=== PATIENT | female | born 1955 | race Caucasian/White ===

== ENCOUNTER → 2016-03-17 | Outpatient (CLI) | payer BC, MEDICAID | LOC: OD 14:47 | PROVIDERS: ATTEND Physician Assistant | DX: R05 Cough (principal) | CPT/HCPCS: 71020 ==

== ENCOUNTER → 2016-03-30 | Outpatient (CLI) | payer BC, MEDICAID | LOC: RAD 12:38 | PROVIDERS: ATTEND Physician Assistant | DX: R94.6 Abnormal results of thyroid function studies (principal); R05 Cough | CPT/HCPCS: 71250; 76536 ==

== ENCOUNTER 2016-04-11 11:02 | Observation (INO) | payer BC, MEDICAID ==
--- NOTE | 2016-04-11 11:09 | ER Document Report ---
ED Medical Screen (RME) - General Stated Complaint: NUMBNESS ON RIGHT SIDE Time seen by provider: 11:06 Mode of Arrival: Wheelchair Information source: Patient TRAVEL OUTSIDE OF THE [place] IN LAST 30 DAYS: No - Related Data Allergies/Adverse Reactions: morphine [Morphine] Allergy (Verified 01/07/13 19:16) nubane Allergy (Uncoded 01/07/13 19:16) plastic tape Allergy (Uncoded 01/07/13 19:16) Past Medical History - Past Medical History Cardiac Medical History: Reports: Hx Coronary Artery Disease, Hx Hypercholesterolemia, Hx Hypertension, Hx Pulmonary Embolism Pulmonary Medical History: Reports: Hx Asthma, Hx COPD Denies: Hx Tuberculosis Endocrine Medical History: Reports: Hx Diabetes Mellitus Type 2 Psychiatric Medical History: Reports: Hx Bipolar Disorder, Hx Depression Past Surgical History: Reports: Hx Appendectomy, Hx Cardiac Catheterization - stent x 1, Hx Cholecystectomy, Hx Mastectomy - left side, pt states many years ago, Hx Thyroid Surgery - Immunizations Hx Diphtheria, Pertussis, Tetanus Vaccination: Yes
--- NOTE | 2016-04-11 11:11 | ER Document Report ---
ED Medical Screen (RME) - General Stated Complaint: NUMBNESS ON RIGHT SIDE Time seen by provider: 11:09 Mode of Arrival: Wheelchair Information source: Patient Notes: 60-year-old female complaining of right-sided numbness that started at 9:00 this morning. She also has numbness to the right side of her face with a headache on the right side. She's never experienced this before history of hypertension her blood pressure is mildly elevated in triage. Smile is normal. TRAVEL OUTSIDE OF THE [place] IN LAST 30 DAYS: No - Related Data Allergies/Adverse Reactions: morphine [Morphine] Allergy (Verified 01/07/13 19:16) nubane Allergy (Uncoded 01/07/13 19:16) plastic tape Allergy (Uncoded 01/07/13 19:16) Past Medical History - Past Medical History Cardiac Medical History: Reports: Hx Coronary Artery Disease, Hx Hypercholesterolemia, Hx Hypertension, Hx Pulmonary Embolism Pulmonary Medical History: Reports: Hx Asthma, Hx COPD Denies: Hx Tuberculosis Endocrine Medical History: Reports: Hx Diabetes Mellitus Type 2 Psychiatric Medical History: Reports: Hx Bipolar Disorder, Hx Depression Past Surgical History: Reports: Hx Appendectomy, Hx Cardiac Catheterization - stent x 1, Hx Cholecystectomy, Hx Mastectomy - left side, pt states many years ago, Hx Thyroid Surgery - Immunizations Hx Diphtheria, Pertussis, Tetanus Vaccination: Yes
[2016-04-11 11:39] LABS: ABSOLUTE BASOPHILS # (AUTO) 0.1 10^3/uL (0.0-0.2); ABSOLUTE EOSINOPHILS # (AUTO) 0.1 10^3/uL (0.0-0.6); ABSOLUTE LYMPHOCYTES (AUTO) 2.4 10^3/uL (0.5-4.7); ABSOLUTE MONOCYTES (AUTO) 0.5 10^3/uL (0.1-1.4); ABSOLUTE NEUT (AUTO) 5.3 10^3/uL (1.7-8.2); BASOPHILS % (AUTO) 1.4 % (0-2); EOSINOPHILS % (AUTO) 1.2 % (0-6); HEMATOCRIT 46.6 % (36.0-47.0); HEMOGLOBIN 16.3 g/dL (12.0-15.5); HGB HCT DIFFERENCE 2.3; LYMPHOCYTES % (AUTO) 28.1 % (13-45); MEAN CORPUSCULAR HEMOGLOBIN 30.5 pg (27.0-33.4); MEAN CORPUSCULAR HGB CONC 35.1 g/dL (32.0-36.0); MEAN CORPUSCULAR VOLUME 87 fl (80-97); MONOCYTES % (AUTO) 6.4 % (3-13); RED BLOOD COUNT 5.36 10^6/uL (3.72-5.28); RED CELL DISTRIBUTION WIDTH 13.7 % (11.5-14.0); SEGMENTED NEUTROPHILS % (AUTO) 62.9 % (42-78); WHITE BLOOD COUNT 8.5 10^3/uL (4.0-10.5)
--- NOTE | 2016-04-11 11:40 | ER Document Report ---
ED Neuro Symptoms/Deficit - General Chief Complaint: Numbness Stated Complaint: NUMBNESS ON RIGHT SIDE Mode of Arrival: Wheelchair Notes: The patient is a 60-year-old female, past medical history diabetes, CAD, bipolar , current smoker, hypertension, presents with 2.5 hours of right-sided facial, arm and leg numbness. She was smoking a cigarette and drinking coffee when the symptoms started at 09:00 today. The symptoms are remaining the same and she has never had this before. She had a dull headache yesterday, similar to prior headaches that resolved without intervention. She denies TRAVEL OUTSIDE OF THE [place] IN LAST 30 DAYS: No - Related Data Allergies/Adverse Reactions: morphine [Morphine] Allergy (Verified 01/07/13 19:16) nubane Allergy (Uncoded 01/07/13 19:16) plastic tape Allergy (Uncoded 01/07/13 19:16) Past Medical History - General Information source: Patient - Social History Smoking Status: Current Every Day Smoker Family History: Reviewed & Not Pertinent - Past Medical History Cardiac Medical History: Reports: Hx Coronary Artery Disease, Hx Hypercholesterolemia, Hx Hypertension, Hx Pulmonary Embolism Pulmonary Medical History: Reports: Hx Asthma, Hx COPD Denies: Hx Tuberculosis Endocrine Medical History: Reports: Hx Diabetes Mellitus Type 2 Renal/ Medical History: Denies: Hx Peritoneal Dialysis Psychiatric Medical History: Reports: Hx Bipolar Disorder, Hx Depression Past Surgical History: Reports: Hx Appendectomy, Hx Cardiac Catheterization - stent x 1, Hx Cholecystectomy, Hx Mastectomy - left side, pt states many years ago, Hx Thyroid Surgery - Immunizations Hx Diphtheria, Pertussis, Tetanus Vaccination: Yes Hx Pneumococcal Vaccination: 10/30/08 Review of Systems - Review of Systems Notes: REVIEW OF SYSTEMS: CONSTITUTIONAL: -fevers, -chills EENT: -eye pain, -difficulty swallowing, -nasal congestion CARDIOVASCULAR:-chest pain, -syncope. RESPIRATORY: -cough, -SOB GASTROINTESTINAL: -abdominal pain, - nausea, -vomiting, -diarrhea GENITOURINARY: -dysuria, -hematuria MUSCULOSKELETAL: -back pain, -neck pain SKIN: -rash or skin lesions. HEMATOLOGIC: -easy bruising or bleeding. LYMPHATIC: -swollen, enlarged glands. NEUROLOGICAL: -altered mental status or loss of consciousness, +right-sided body numbness, -ataxia, -weakness PSYCHIATRIC: -anxiety, -depression. ALL OTHER SYSTEMS REVIEWED AND NEGATIVE. Physical Exam - Vital signs Vitals: Temp Pulse Resp BP Pulse Ox 97.2 F 84 16 151/91 H 94 04/11/16 11:06 04/11/16 11:06 04/11/16 11:06 04/11/16 11:06 04/11/16 11:06 - Notes Notes: PHYSICAL EXAMINATION: GENERAL: Well-appearing, well-nourished and in no acute distress. HEAD: Atraumatic, normocephalic. EYES: Pupils equal round and reactive to light, extraocular movements intact, sclera anicteric, conjunctiva are normal. ENT: nares patent, oropharynx clear without exudates. Moist mucous membranes. NECK: Normal range of motion, supple without lymphadenopathy LUNGS: Breath sounds clear to auscultation bilaterally and equal. No wheezes rales or rhonchi. HEART: Regular rate and rhythm without murmurs ABDOMEN: Soft, nontender, normoactive bowel sounds. No guarding, no rebound. No masses appreciated. EXTREMITIES: Normal range of motion, no pitting or edema. No cyanosis. NEUROLOGICAL: Cranial nerves grossly intact. Normal speech, normal gait. Sensory loss over right face, right arm, right torso and right leg. 5/5 strength in all 4 extremities. PSYCH: Normal mood, normal affect. SKIN: Warm, Dry, normal turgor, no rashes or lesions noted. Course - Re-evaluation Re-evalutation: CT head negative for intracranial hemorrhage. NIHSS score 2. Patient is not a TPA candidate due to low NIH scale. Spoke to patient about this and she understands. ABCD2 score 5. Patient will require inpatient admission for further evaluation and treatment of her CVA due to her elevated ABCD2 score. Patient given aspirin. 04/11/16 12:[address] Mccabe and he has accepted patient as Tele Obs. - Vital Signs Vital signs: Temp Pulse Resp BP Pulse Ox 97.2 F 80 26 H 154/92 H 94 04/11/16 11:06 04/11/16 12:00 04/11/16 12:21 04/11/16 12:21 04/11/16 12:21 - Laboratory Result Diagrams: 04/11/16 11:28 04/11/16 11:28 Laboratory results interpreted by me: 04/11/16 04/11/16 11:28 11:28 RBC 5.36 H Hgb 16.3 H Sodium 134.2 L Est GFR ( Amer) 56 L Est GFR (Non-Af Amer) 46 L Glucose 175 H Alkaline Phosphatase 132 H - Diagnostic Test Radiology reviewed: Image reviewed, Reports reviewed Radiology results interpreted by me: CT Head: NAD. CXR: NAD - EKG Interpretation by Me EKG shows normal: Sinus rhythm, [place], Intervals, QRS Complexes, ST-T Waves Critical Care Note - Critical Care Note Total time excluding time spent on procedures (mins): 45 Discharge - Discharge Clinical Impression: CVA (cerebral vascular accident) Qualifiers: CVA mechanism: unspecified Qualified Code(s): I63.9 - Cerebral infarction, unspecified Condition: Stable Disposition: ADMITTED OBSERVATION Admitting Provider: [facility] Admitted: Telemetry
[2016-04-11 11:45] LABS: PROTHROMBIN TIME 11.6 SEC (11.4-15.4)
[2016-04-11 11:46] LABS: PARTIAL THROMBOPLASTIN TIME 31.7 SEC (23.5-35.8)
[2016-04-11 11:57] LABS: ALANINE AMINOTRANSFERASE 29 U/L (9-52); ALBUMIN 3.9 g/dL (3.5-5.0); ALKALINE PHOSPHATASE 132 U/L (38-126); ANION GAP 7 (5-19); ASPARTATE AMINO TRANSFERASE 26 U/L (14-36); BILIRUBIN,TOTAL 0.5 mg/dL (0.2-1.3); BLOOD UREA NITROGEN 16 mg/dL (7-20); CALCIUM 9.6 mg/dL (8.4-10.2); CARBON DIOXIDE 28 mmol/L (22-30); CHLORIDE 99 mmol/L (98-107); CREATINE KINASE 46 U/L (30-135); CREATININE RESULT 1.19 mg/dL (0.52-1.25); GLUCOSE 175 mg/dL (75-110); POTASSIUM 4.2 mmol/L (3.6-5.0); SODIUM 134.2 mmol/L (137-145); TOTAL PROTEIN 6.7 g/dL (6.3-8.2)
[2016-04-11] MEDS ORDERED: ASPIRIN 325 MG TABLET PO ONE (12:00)
[2016-04-11 12:09] LABS: CREATINE KINASE MB 1.13 ng/mL (<4.55); TROPONIN I < 0.012 ng/mL
[2016-04-11] MEDS ORDERED: DEXTROSE 40% GEL 15 GM TUBE PO PRN ×2 (16:26)
[2016-04-11] MEDS ORDERED: NORMAL SALINE 1000 ML 1,000 ML IV PRN (16:26)
[2016-04-11] MEDS ORDERED: DEXTROSE 50%-WATER 25 GM/50 ML DISP.SYRIN IV PRN ×2 (16:26)
[2016-04-11] MEDS ORDERED: GLUCAGON,HUMAN RECOMB 1 MG INJ IM PRN (16:26)
[2016-04-11] MEDS ORDERED: INSULIN LISPRO 100 UNIT/ML 3 ML VIAL SUBCUT PRN (16:26)
--- NOTE | 2016-04-11 16:38 | PDOC H&P ---
History of Present Illness Admission Date/PCP: 04/11/16 13:11 MARU WOODALL MD Patient complains of: Right sided numbness History of Present Illness: CRISTIANE LOVE is a 60 year old female patient of Dr Maru Woodall who presented to ED after about 3 hours of right sided facial and body numbness. Patient narrated that she had a cup of coffee and smoked cigarette. She subsequently felt some degree of right sided facial numbness but went on to sleep. Upon waking up, patient reported worsening of symptom with involvement of full right side of her bopdy. This prompted her visit to her ED visit. Patient reported episode of nose bleed couple of days ago. Associated headache but no dizziness, seizure activity, focal weakness, or incontinence. She denied any similar symptoms in the past. Her initail evaluation ion the E was remarkable for slightly elevated blood pressure and blood glucose. She has history of Diabetes mellitus, Hypertension, CAD, Hyperlipidemia, Bipolar disorder, and cigarette smoking. Past Medical History Cardiac Medical History: Reports: Coronary Artery Disease, Hyperlipidema, Hypertension, Pulmonary Embolism Pulmonary Medical History: Reports: Asthma, Chronic Obstructive Pulmonary Disease (COPD) Denies: Tuberculosis Endocrine Medical History: Reports: Diabetes Mellitus Type 2 Psychiatric Medical History: Reports: Bipolar Disorder, Depression Past Surgical History Past Surgical History: Reports: Appendectomy, Cardiac Catheterization - stent x 1, Cholecystectomy, Mastectomy - left side, pt states many years ago Social History Smoking Status: Current Every Day Smoker Cigarettes Packs Per Day: 60 Number of Years Smokin Last Time Smoked: 04/11/16 Frequency of Alcohol Use: None Hx Recreational Drug Use: Yes - LAST USE 04/11/16 Drugs: Marijuana Hx Prescription Drug Abuse: No - Advance Directive Resuscitation Status: Full Code Family History Family History: Reviewed & Not Pertinent Parental Family History Reviewed: Yes Children Family History Reviewed: Yes Sibling(s) Family History Reviewed.: Yes Medication/Allergy Home Medications: Aripiprazole [Abilify 30 mg Tablet] 30 mg PO QAM 04/11/16 Fenofibrate [Lofibra] 160 mg PO DAILY 04/11/16 Hydroxyzine HCl [Atarax 25 mg Tablet] 25 mg PO DAILYP PRN 04/11/16 Hydroxyzine HCl [Atarax 25 mg Tablet] 50 mg PO QHS 04/11/16 Ipratropium/Albuterol Sulfate [Iprat-Albut 0.5-3(2.5) mg/3 ml] 3 ml NEB Q6H 01/15 Metoprolol Tartrate [Lopressor 25 mg Tablet] 25 mg PO Q12 04/11/16 Montelukast Sodium [Singulair 10 mg Tablet] 10 mg PO QPM 04/11/16 Omeprazole 40 mg PO DAILY 04/11/16 Potassium Chloride [Klor-Con 10 Meq Tablet.sa] 20 meq PO DAILY 04/11/16 Quetiapine Fumarate [Seroquel 100 mg Tablet] 100 mg PO QHS 04/11/16 Trazodone HCl [Desyrel] 450 mg PO QHS 04/11/16 Venlafaxine HCl [Venlafaxine HCl ER] 150 mg PO BID 04/11/16 Allergies/Adverse Reactions: morphine [Morphine] Allergy (Verified 01/07/13 19:16) nubane Allergy (Uncoded 01/07/13 19:16) plastic tape Allergy (Uncoded 01/07/13 19:16) Review of Systems Constitutional: ABSENT: as per HPI, anorexia, chills, fatigue, fever(s), headache(s), night sweats, weakness, weight gain, weight loss, other Eyes: ABSENT: visual disturbances Ears: ABSENT: hearing changes Nose, Mouth, and Throat: ABSENT: as per HPI, headache(s), mouth pain, sore throat, vertigo, other Cardiovascular: ABSENT: chest pain, dyspnea on exertion, edema, orthropnea, palpitations Respiratory: ABSENT: cough, hemoptysis Gastrointestinal: ABSENT: abdominal pain, constipation, diarrhea, hematemesis, hematochezia, nausea, vomiting Genitourinary: ABSENT: as per HPI, difficulty urinating, dysuria, hematuria, nocturia, other Musculoskeletal: PRESENT: deformity - from multiple joints involvemenet in osteuol. ABSENT: as per HPI, back pain, joint swelling, muscle weakness, other Integumentary: PRESENT: diaphoresis - intermittently. ABSENT: as per HPI, erythema, lesions, pruritus, rash, wounds, other Neurological: PRESENT: numbness, other - headache Psychiatric: ABSENT: anxiety, depression, homidical ideation, suicidal ideation Endocrine: ABSENT: cold intolerance, heat intolerance, menstrual abnormalities, polydipsia, polyuria Hematologic/Lymphatic: ABSENT: easy bleeding, easy bruising, lymphadenopathy Physical Exam Vital Signs: Temp Pulse Resp BP Pulse Ox 97.5 F 80 20 151/78 H 96 04/11/16 15:39 04/11/16 15:39 04/11/16 15:39 04/11/16 15:39 04/11/16 15:39 General appearance: PRESENT: no acute distress, cooperative, obese Head exam: PRESENT: atraumatic, normocephalic Eye exam: PRESENT: conjunctiva pink, EOMI, PERRLA. ABSENT: scleral icterus Ear exam: PRESENT: normal external ear exam Mouth exam: PRESENT: moist, tongue midline Throat exam: ABSENT: post pharyngeal erythema, tonsillar erythema, tonsillar exudate, tonsillogmegaly, other Neck exam: PRESENT: full ROM. ABSENT: carotid bruit, JVD, lymphadenopathy, thyromegaly Respiratory exam: ABSENT: accessory muscle use, chest wall tenderness, clear to auscultation nuvia, crackles, decreased breath sounds, prolonged expiratory phas, rales, retraction, rhonchi, stridor, symmetrical, tachypnea, unlabored, wheezes , other Cardiovascular exam: PRESENT: RRR. ABSENT: diastolic murmur, rubs, systolic murmur Pulses: PRESENT: normal dorsalis pedis pul, +2 pedal pulses bilateral Vascular exam: PRESENT: normal capillary refill GI/Abdominal exam: PRESENT: normal bowel sounds, soft. ABSENT: distended, guarding, mass, organolmegaly, rebound, tenderness Extremities exam: PRESENT: full ROM Musculoskeletal exam: PRESENT: ambulatory, deformity, full ROM, normal inspection Neurological exam: PRESENT: alert, awake, oriented to person, oriented to place , oriented to time, oriented to situation, CN II-XII grossly intact. ABSENT: motor sensory deficit Psychiatric exam: PRESENT: appropriate affect, normal mood. ABSENT: homicidal ideation, suicidal ideation Skin exam: PRESENT: dry, intact, warm. ABSENT: cyanosis, rash Results Impressions: Chest X-Ray 04/11/16 11:10 IMPRESSION: No significant interval change. No acute changes. Other findings as noted above Head CT 04/11/16 11:10 IMPRESSION: NORMAL BRAIN CT WITHOUT CONTRAST. Assessment & Plan - Diagnosis (1) TIA (transient ischemic attack) Qualifiers: Transient cerebral ischemia type: unspecified Qualified Code(s): G45.9 - Transient cerebral ischemic attack, unspecified Is this a current diagnosis for this admission?: YesPlan: See admitting physician orders (2) HTN (hypertension) Qualifiers: Hypertension type: essential hypertension Qualified Code(s): I10 - Essential (primary) hypertension Is this a current diagnosis for this admission?: YesPlan: See admitting physician orders (3) HLD (hyperlipidemia) Qualifiers: Hyperlipidemia type: pure hypercholesterolemia Qualified Code(s): E78.00 - Pure hypercholesterolemia, unspecified; E78.0 - Pure hypercholesterolemia Is this a current diagnosis for this admission?: YesPlan: See admitting physician orders (4) CAD (coronary artery disease) Qualifiers: Coronary Disease-Associated Artery/Lesion type: [place] artery Associated angina: without angina Is this a current diagnosis for this admission?: YesPlan: See admitting physician orders (5) Diabetes mellitus type 2 in obese Is this a current diagnosis for this admission?: YesPlan: See admitting physician orders (6) Bipolar disorder Qualifiers: Active/Remission status: currently active Is this a current diagnosis for this admission?: YesPlan: See admitting physician orders (7) Cigarette smoker Is this a current diagnosis for this admission?: YesPlan: see admitting physician orders. Extensive bedside counseling was done during my evaluation of the patient at bedside regarding her comorbidities and worsening outcome due to cigarette smoking. - Time Time Spent: 50 to 70 Minutes Smoking Cessation Education: 3 to 10 minutes Medications reviewed and adjusted accordingly: Yes Anticipated discharge: Home with Homehealth Within: Other - Plan Summary Plan Summary: See admitting physician orders.
[2016-04-11 17:51] LABS: PROTHROMBIN TIME 12.3 SEC (11.4-15.4)
[2016-04-11 17:52] LABS: PARTIAL THROMBOPLASTIN TIME 31.9 SEC (23.5-35.8)
--- NOTE | 2016-04-11 19:29 | EKG REPORT ---
SEVERITY:- NORMAL ECG - SINUS RHYTHM : Confirmed by: Farhad Raza MD 11-Apr-2016 19:28:56
[2016-04-11] MEDS: IPRATROPIUM/ALBUTEROL 0.5-2.5 MG/3 ML AMPUL NEB SCH (20:27)
[2016-04-11] MEDS: TRAZODONE HCL 50 MG TABLET PO SCH (21:53)
[2016-04-11] MEDS: MONTELUKAST SODIUM 10 MG TABLET PO SCH (22:03)
[2016-04-11] MEDS: ATORVASTATIN CALCIUM 20 MG TABLET PO SCH (22:04)
[2016-04-11] MEDS: METOPROLOL TARTRATE 25 MG TABLET PO SCH (22:04)
[2016-04-11] MEDS: QUETIAPINE FUMARATE 100 MG TABLET PO SCH (22:04)
[2016-04-11] MEDS: VENLAFAXINE HCL 75 MG CAP.SR.24H PO SCH (22:05)
[2016-04-12] MEDS ORDERED: ACETAMINOPHEN 325 MG TABLET PO PRN (00:11)
[2016-04-12] MEDS: IPRATROPIUM/ALBUTEROL 0.5-2.5 MG/3 ML AMPUL NEB SCH ×4 (02:38→20:26)
[2016-04-12 04:30] LABS: ABSOLUTE BASOPHILS # (AUTO) 0.1 10^3/uL (0.0-0.2); ABSOLUTE EOSINOPHILS # (AUTO) 0.1 10^3/uL (0.0-0.6); ABSOLUTE MONOCYTES (AUTO) 0.5 10^3/uL (0.1-1.4); ABSOLUTE NEUT (AUTO) 5.1 10^3/uL (1.7-8.2); EOSINOPHILS % (AUTO) 1.7 % (0-6); HEMATOCRIT 45.3 % (36.0-47.0); HGB HCT DIFFERENCE -0.3; LYMPHOCYTES % (AUTO) 25.5 % (13-45); MEAN CORPUSCULAR HEMOGLOBIN 29.4 pg (27.0-33.4); MEAN CORPUSCULAR HGB CONC 33.2 g/dL (32.0-36.0); MEAN CORPUSCULAR VOLUME 89 fl (80-97); MONOCYTES % (AUTO) 6.8 % (3-13); RED BLOOD COUNT 5.12 10^6/uL (3.72-5.28); WHITE BLOOD COUNT 7.9 10^3/uL (4.0-10.5)
[2016-04-12 04:50] LABS: ALANINE AMINOTRANSFERASE 31 U/L (9-52); ALBUMIN 2.9 g/dL (3.5-5.0); ALKALINE PHOSPHATASE 108 U/L (38-126); ANION GAP 7 (5-19); ASPARTATE AMINO TRANSFERASE 25 U/L (14-36); BILIRUBIN,TOTAL 0.4 mg/dL (0.2-1.3); BLOOD UREA NITROGEN 16 mg/dL (7-20); CALCIUM 9.2 mg/dL (8.4-10.2); CARBON DIOXIDE 25 mmol/L (22-30); CHLORIDE 105 mmol/L (98-107); CHOLESTEROL 261.98 mg/dL (0-200); CREATININE RESULT 1.17 mg/dL (0.52-1.25); Direct HDL 69 mg/dL (>40); GLUCOSE 129 mg/dL (75-110); POTASSIUM 3.9 mmol/L (3.6-5.0); SODIUM 136.8 mmol/L (137-145); TOTAL PROTEIN 5.9 g/dL (6.3-8.2); TRIGLYCERIDES 217 mg/dL (<150)
[2016-04-12 05:00] LABS: DIRECT LDL 131 mg/dL (<100)
[2016-04-12] MEDS: LANSOPRAZOLE 30 MG TAB.RAP.DR PO SCH (05:05)
[2016-04-12 05:09] LABS: VLDL CHOLESTEROL 43.4 mg/dL (10-31)
[2016-04-12] MEDS: ENOXAPARIN SODIUM INJ 40 MG/0.4 ML DISP.SYRIN SUBCUT SCH (08:39)
[2016-04-12] MEDS: ARIPIPRAZOLE 5 MG TABLET PO SCH (09:33)
[2016-04-12] MEDS: FENOFIBRATE NANOCRYSTALLIZED 145 MG TABLET PO SCH (09:34)
[2016-04-12] MEDS: ASPIRIN 81 MG TABLET, ENT COATED PO SCH (09:34)
[2016-04-12] MEDS: VENLAFAXINE HCL 75 MG CAP.SR.24H PO SCH ×2 (09:34→21:31)
[2016-04-12] MEDS: METOPROLOL TARTRATE 25 MG TABLET PO SCH ×2 (09:34→21:31)
--- NOTE | 2016-04-12 15:49 | PDOC PROGRESS REPORT ---
Subjective Progress Note for:: 04/12/16 Subjective:: Patient denied any chest pain or difficulty with her breathing. Ambulate in her room and denied any difficulty. In view of this she denied participation with PT personnel today. No nausea, vomiting or abdominal pain. No fever or chills. Physical Exam Vital Signs: Temp Pulse Resp BP Pulse Ox 97.9 F 81 14 160/82 H 96 04/12/16 11:27 04/12/16 13:58 04/12/16 13:58 04/12/16 12:00 04/12/16 13:58 Intake & Output 04/11/16 04/12/16 04/13/16 06:59 06:59 06:59 Intake Total 1950 537 Balance 1950 537 Weight 72.1 kg General appearance: PRESENT: no acute distress, cooperative Head exam: PRESENT: atraumatic, normocephalic Eye exam: PRESENT: conjunctiva pink, EOMI, PERRLA Neck exam: PRESENT: full ROM. ABSENT: carotid bruit, JVD, lymphadenopathy, thyromegaly Respiratory exam: ABSENT: accessory muscle use, chest wall tenderness, clear to auscultation nuvia, crackles, decreased breath sounds, prolonged expiratory phas, rales, retraction, rhonchi, stridor, symmetrical, tachypnea, unlabored, wheezes , other Cardiovascular exam: PRESENT: RRR. ABSENT: diastolic murmur, rubs, systolic murmur GI/Abdominal exam: PRESENT: normal bowel sounds, soft. ABSENT: distended, guarding, mass, organolmegaly, rebound, tenderness Extremities exam: PRESENT: full ROM Musculoskeletal exam: PRESENT: deformity, full ROM Neurological exam: PRESENT: alert, awake, oriented to person, oriented to place , oriented to time, oriented to situation, CN II-XII grossly intact. ABSENT: motor sensory deficit Psychiatric exam: PRESENT: appropriate affect, normal mood. ABSENT: homicidal ideation, suicidal ideation Skin exam: PRESENT: dry, intact, warm. ABSENT: cyanosis, rash Results Laboratory Results: 04/12/16 04:03 04/12/16 04:03 04/12/16 04/12/16 04:03 04:03 WBC 7.9 RBC 5.12 Hgb 15.0 Hct 45.3 MCV 89 MCH 29.4 MCHC 33.2 RDW 14.0 Plt Count 321 Seg Neutrophils % 65.0 Lymphocytes % 25.5 Monocytes % 6.8 Eosinophils % 1.7 Basophils % 1.0 Absolute Neutrophils 5.1 Absolute Lymphocytes 2.0 Absolute Monocytes 0.5 Absolute Eosinophils 0.1 Absolute Basophils 0.1 Sodium 136.8 L Potassium 3.9 Chloride 105 Carbon Dioxide 25 Anion Gap 7 BUN 16 Creatinine 1.17 Est GFR ( Amer) 57 L Est GFR (Non-Af Amer) 47 L Glucose 129 H Calcium 9.2 Total Bilirubin 0.4 AST 25 ALT 31 Alkaline Phosphatase 108 Total Protein 5.9 L Albumin 2.9 L Triglycerides 217 H Cholesterol 261.98 H LDL Cholesterol Direct 131 H VLDL Cholesterol 43.4 H HDL Cholesterol 69 Impressions: Chest X-Ray 04/11/16 11:10 IMPRESSION: No significant interval change. No acute changes. Other findings as noted above Head CT 04/11/16 11:10 IMPRESSION: NORMAL BRAIN CT WITHOUT CONTRAST. Assessment & Plan - Diagnosis (1) TIA (transient ischemic attack) Qualifiers: Transient cerebral ischemia type: unspecified Qualified Code(s): G45.9 - Transient cerebral ischemic attack, unspecified Is this a current diagnosis for this admission?: YesPlan: See attending physician orders (2) HTN (hypertension) Qualifiers: Hypertension type: essential hypertension Qualified Code(s): I10 - Essential (primary) hypertension Is this a current diagnosis for this admission?: YesPlan: See attending physician orders (3) HLD (hyperlipidemia) Qualifiers: Hyperlipidemia type: pure hypercholesterolemia Qualified Code(s): E78.00 - Pure hypercholesterolemia, unspecified; E78.0 - Pure hypercholesterolemia Is this a current diagnosis for this admission?: YesPlan: See attending physician orders. (4) CAD (coronary artery disease) Qualifiers: Coronary Disease-Associated Artery/Lesion type: [place] artery Associated angina: without angina Is this a current diagnosis for this admission?: YesPlan: See attending physician orders (5) Diabetes mellitus type 2 in obese Is this a current diagnosis for this admission?: YesPlan: See attending physician orders (6) Bipolar disorder Qualifiers: Active/Remission status: currently active Is this a current diagnosis for this admission?: Yes (7) Cigarette smoker Is this a current diagnosis for this admission?: Yes - Time Time Spent with patient: 25-34 minutes Medications reviewed and adjusted accordingly: Yes Anticipated discharge: Home - Inpatient Certification Medical Necessity: Need Close Monitoring Due to Risk of Patient Decompensation, Need For Continuous Telemetry Monitoring, Risk of Complication if Not Cared For in Hospital Post Hospital Care: D/C Demolition Specialist Documentation - Plan Summary Plan Summary: see covering physician orders.
[2016-04-12] MEDS: MONTELUKAST SODIUM 10 MG TABLET PO SCH (19:33)
[2016-04-12] MEDS: ATORVASTATIN CALCIUM 20 MG TABLET PO SCH (21:31)
[2016-04-12] MEDS: QUETIAPINE FUMARATE 100 MG TABLET PO SCH (21:31)
[2016-04-12] MEDS: TRAZODONE HCL 50 MG TABLET PO SCH (21:33)
[2016-04-13] MEDS: IPRATROPIUM/ALBUTEROL 0.5-2.5 MG/3 ML AMPUL NEB SCH ×4 (02:07→20:31)
[2016-04-13] MEDS: LANSOPRAZOLE 30 MG TAB.RAP.DR PO SCH (05:33)
[2016-04-13] MEDS: ARIPIPRAZOLE 5 MG TABLET PO SCH (09:14)
[2016-04-13] MEDS: METOPROLOL TARTRATE 25 MG TABLET PO SCH ×2 (09:14→21:07)
[2016-04-13] MEDS: VENLAFAXINE HCL 75 MG CAP.SR.24H PO SCH ×2 (09:14→21:06)
[2016-04-13] MEDS: ASPIRIN 81 MG TABLET, ENT COATED PO SCH (09:15)
[2016-04-13] MEDS: THYROID (PORK) 60 MG TABLET PO SCH (09:16)
[2016-04-13] MEDS: LIOTHYRONINE SODIUM 25 MCG TABLET PO SCH (09:16)
[2016-04-13] MEDS: FENOFIBRATE NANOCRYSTALLIZED 145 MG TABLET PO SCH (09:16)
[2016-04-13] MEDS: ENOXAPARIN SODIUM INJ 40 MG/0.4 ML DISP.SYRIN SUBCUT SCH (09:16)
--- NOTE | 2016-04-13 10:24 | PDOC PROGRESS REPORT ---
Subjective Progress Note for:: 04/13/16 Subjective:: Patient was admitted for the TIA symptom and initial all workup is negative. His denied any chest no shortness of the and no any tingling any numbness. Patient's walk in the hallway. Otherwise doing well and wants to go home Physical Exam Vital Signs: Temp Pulse Resp BP Pulse Ox 97.6 F 85 20 169/80 H 95 04/13/16 07:53 04/13/16 08:47 04/13/16 08:47 04/13/16 07:53 04/13/16 08:47 Intake & Output 04/12/16 04/13/16 04/14/16 06:59 06:59 06:59 Intake Total 1950 3057 Output Total 3400 Balance 1950 -343 Weight 72.1 kg 73.1 kg General appearance: PRESENT: no acute distress, well-developed, well-nourished Head exam: PRESENT: atraumatic, normocephalic Eye exam: PRESENT: conjunctiva pink, EOMI, PERRLA. ABSENT: scleral icterus Ear exam: PRESENT: normal external ear exam Mouth exam: PRESENT: moist, tongue midline Neck exam: PRESENT: full ROM. ABSENT: carotid bruit, JVD, lymphadenopathy, thyromegaly Cardiovascular exam: PRESENT: RRR. ABSENT: diastolic murmur, rubs, systolic murmur Pulses: PRESENT: normal dorsalis pedis pul, +2 pedal pulses bilateral Vascular exam: PRESENT: normal capillary refill GI/Abdominal exam: PRESENT: normal bowel sounds, soft. ABSENT: distended, guarding, mass, organolmegaly, rebound, tenderness Rectal exam: PRESENT: deferred Neurological exam: PRESENT: alert, awake, oriented to person, oriented to place , oriented to time, oriented to situation, CN II-XII grossly intact. ABSENT: motor sensory deficit Psychiatric exam: PRESENT: appropriate affect, normal mood. ABSENT: homicidal ideation, suicidal ideation Skin exam: PRESENT: dry, intact, warm. ABSENT: cyanosis, rash Results Laboratory Results: 04/12/16 04:03 04/12/16 04:03 Impressions: Chest X-Ray 04/11/16 11:10 IMPRESSION: No significant interval change. No acute changes. Other findings as noted above Head CT 04/11/16 11:10 IMPRESSION: NORMAL BRAIN CT WITHOUT CONTRAST. Carotid Doppler Study 04/13/16 00:00 IMPRESSION: NO HEMODYNAMICALLY SIGNIFICANT STENOSIS. Assessment & Plan - Diagnosis (1) TIA (transient ischemic attack) Qualifiers: Transient cerebral ischemia type: unspecified Qualified Code(s): G45.9 - Transient cerebral ischemic attack, unspecified Is this a current diagnosis for this admission?: YesPlan: Continues the aspirin continues the current we will get the MRI of the head and will wait for the carotid Doppler and echo study (2) Bipolar disorder Qualifiers: Active/Remission status: currently active Is this a current diagnosis for this admission?: YesPlan: Patient is currently follow the psych for the (3) CAD (coronary artery disease) Qualifiers: Coronary Disease-Associated Artery/Lesion type: [place] artery Associated angina: without angina Is this a current diagnosis for this admission?: YesPlan: All workup is negative patient was recently a stress test and echo done and patient see Dr. Gonzalez's office (4) Cigarette smoker Is this a current diagnosis for this admission?: YesPlan: Discuss about the smoking cessation (5) HLD (hyperlipidemia) Qualifiers: Hyperlipidemia type: pure hypercholesterolemia Qualified Code(s): E78.00 - Pure hypercholesterolemia, unspecified; E78.0 - Pure hypercholesterolemia Is this a current diagnosis for this admission?: YesPlan: Continues the current medications (6) HTN (hypertension) Qualifiers: Hypertension type: essential hypertension Qualified Code(s): I10 - Essential (primary) hypertension Is this a current diagnosis for this admission?: Yes - Time Time Spent with patient: 15-24 minutes Medications reviewed and adjusted accordingly: Yes Anticipated discharge: Home Within: within 24 hours - Inpatient Certification Medical Necessity: Significant Comorbidiites Make Outpatient Treatment Too Risky - Plan Summary Plan Summary: If the patient MRI and other blood work is neck patient's discharge home with aggressive risk management
[2016-04-13] MEDS ORDERED: ATORVASTATIN CALCIUM 40 MG TABLET PO SCH (13:33)
--- NOTE | 2016-04-13 13:55 | XCELERA REPORT ---
[address] [address] Transthoracic Echocardiogram Report Name: CRISTIANE LOVE Age: 60 yrs Gender: Female : 1955 Patient Status: Inpatient Patient Location: [id number]\S\318\[id number]\B Study Date: 04/13/2016 08:16 AM Height: 64 in Weight: 160 lb BSA: 1.8 m2 Procedure: A complete two-dimensional transthoracic echocardiogram was performed (2D, M-mode, spectral and color flow Doppler). The study was technically difficult with many images being suboptimal in quality. Reason For Study: right sided body numbness with TIA Ordering Physician: LILA SABILLON Performed By: Hansa Veronica Interpretation Summary The study was technically difficult with many images being suboptimal in quality. The left ventricular ejection fraction is normal. There is borderline concentric left ventricular hypertrophy. The left ventricle is grossly normal size. Doppler measurements suggest pseudonormalized left ventricular relaxation, which is associated with grade II/IV or mild to moderate diastolic dysfunction Wall motion cannot be accurately commented on, but no definite regional wall motion abnormalities noted. The right ventricle appears to be hypertrophied The right ventricular systolic function is normal. There is no mitral valve stenosis. There is a trace to mild amount of mitral regurgitation There is no aortic valve stenosis No aortic regurgitation is present. There is a trace or physiologic amount of tricuspid regurgitation Tricuspid regurgitation jet envelope not well defined to measure RV systolic pressure accurately. Minimal pericardial effusion. MMode/2D Measurements \T\ Calculations RVDd: 2.9 cm LVIDd: 4.6 cm FS: 27.4 % Ao root diam: 3.2 cm IVSd: 0.94 cm LVIDs: 3.3 cm EDV(Teich): 97.3 ml LVPWd: 0.90 cmESV(Teich): 45.4 ml Ao root area: 8.0 cm2 EF(Teich): 53.4 % LA dimension: 3.5 cm LVOT diam: 2.0 cm LVOT area: 3.2 cm2 Doppler Measurements \T\ Calculations MV E max carla: MV P1/2t max carla: Ao V2 max: LV V1 max P.8 cm/sec 90.3 cm/sec 124.9 cm/sec 4.3 mmHg MV A max carla: MV P1/2t: 43.4 msec Ao max PG: LV V1 max: 110.6 cm/sec MVA(P1/2t): 5.1 cm2 6.2 mmHg 104.1 cm/sec MV E/A: 0.82 MV dec slope: MITZI(V,D): 2.7 cm2 609.9 cm/sec2 MV dec time: 0.14 sec PA V2 max: TR max carla: 85.4 cm/sec 209.6 cm/sec PA max P.9 mmHgTR max P.6 mmHg Left Ventricle The left ventricle is grossly normal size. There is borderline concentric left ventricular hypertrophy. The left ventricular ejection fraction is normal. Doppler measurements suggest pseudonormalized left ventricular relaxation, which is associated with grade II/IV or mild to moderate diastolic dysfunction. Wall motion cannot be accurately commented on, but no definite regional wall motion abnormalities noted. Right Ventricle The right ventricle is grossly normal size. The right ventricle appears to be hypertrophied. The right ventricular systolic function is normal. Atria The right atrium is normal in size. The left atrial size is normal. Interarterial septum not well visualized and not well dopplered. Cannot comment on ASD/PFO presence. Mitral Valve The mitral valve is grossly normal. There is no mitral valve stenosis. There is a trace to mild amount of mitral regurgitation. Aortic Valve The aortic valve is grossly normal. There is no aortic valve stenosis. No aortic regurgitation is present. Tricuspid Valve The tricuspid valve is not well visualized, but is grossly normal. There is no tricuspid stenosis. There is a trace or physiologic amount of tricuspid regurgitation. Tricuspid regurgitation jet envelope not well defined to measure RV systolic pressure accurately. Pulmonic Valve The pulmonic valve is not well visualized. Great Vessels The aortic root is not well visualized. The inferior vena cava appeared normal and decreased > 50% with respiration (RAP 5-10 mmHg). Effusions Minimal pericardial effusion. : LILA SABILLON > Emilio Clay
[2016-04-13] MEDS: MONTELUKAST SODIUM 10 MG TABLET PO SCH (20:27)
[2016-04-13] MEDS: QUETIAPINE FUMARATE 100 MG TABLET PO SCH (21:06)
[2016-04-13] MEDS: TRAZODONE HCL 50 MG TABLET PO SCH (21:43)
[2016-04-14] MEDS: IPRATROPIUM/ALBUTEROL 0.5-2.5 MG/3 ML AMPUL NEB SCH ×2 (02:25→08:35)
[2016-04-14] MEDS: LANSOPRAZOLE 30 MG TAB.RAP.DR PO SCH (05:22)
[2016-04-14] MEDS: ENOXAPARIN SODIUM INJ 40 MG/0.4 ML DISP.SYRIN SUBCUT SCH (08:14)
[2016-04-14 08:59] VITALS: BP 170/92
[2016-04-14] MEDS: VENLAFAXINE HCL 75 MG CAP.SR.24H PO SCH (09:09)
[2016-04-14] MEDS: ARIPIPRAZOLE 5 MG TABLET PO SCH (09:09)
[2016-04-14] MEDS: FENOFIBRATE NANOCRYSTALLIZED 145 MG TABLET PO SCH (09:09)
[2016-04-14] MEDS: ASPIRIN 81 MG TABLET, ENT COATED PO SCH (09:09)
[2016-04-14] MEDS: METOPROLOL TARTRATE 25 MG TABLET PO SCH (09:09)
[2016-04-14] MEDS: THYROID (PORK) 60 MG TABLET PO SCH (09:10)
[2016-04-14] MEDS: LIOTHYRONINE SODIUM 25 MCG TABLET PO SCH (09:10)
[2016-04-14] MEDS ORDERED: FENTANYL CITRATE INJ/PF 100 MCG/2 ML AMPUL ONE (09:41)
[2016-04-14] MEDS ORDERED: FENTANYL CITRATE INJ/PF 250 MCG/5 ML AMPULE ONE (10:36)
--- NOTE | 2016-04-14 13:04 | PDOC DISCHARGE SUMMARY ---
General - Admit/Disc Date/PCP Admission Date/Primary Care Provider: 04/11/16 16:25 TYRON WOODALL MD Discharge Date: 04/14/16 - Discharge Diagnosis (1) Acute cerebrovascular accident Is this a current diagnosis for this admission?: YesSummary: Discussed with the patient about the smoking cessation and put the patient on aspirin Plavix and increase the Lipitor to 40 minute. Patient have a acute left nonhemorrhagic's stroke on the felicia. Discussed with the patient and the family about the MRI 5 and follow as outpatient (2) TIA (transient ischemic attack) Is this a current diagnosis for this admission?: Yes (3) Bipolar disorder Is this a current diagnosis for this admission?: YesSummary: Currently see a psych for the (4) CAD (coronary artery disease) Is this a current diagnosis for this admission?: YesSummary: Patient is currently seeing outpatients Dr. Edwards patient's echocardiogram is all stable and all cardiac workup is also negative to (5) Cigarette smoker Is this a current diagnosis for this admission?: YesSummary: Discussed about the smoking suggestions (6) HLD (hyperlipidemia) Is this a current diagnosis for this admission?: YesSummary: Continues the Lipitor 40 mg daily (7) HTN (hypertension) Is this a current diagnosis for this admission?: YesSummary: Currently stable - Additional Information Resuscitation Status: Full Code Discharge Diet: Cardiac Discharge Activity: Activity As Tolerated Home Medications: Aripiprazole [Abilify 30 mg Tablet] 30 mg PO QAM 04/11/16 Fenofibrate [Lofibra] 160 mg PO DAILY 04/11/16 Hydroxyzine HCl [Atarax 25 mg Tablet] 25 mg PO DAILYP PRN 04/11/16 Hydroxyzine HCl [Atarax 25 mg Tablet] 50 mg PO QHS 04/11/16 Ipratropium/Albuterol Sulfate [Iprat-Albut 0.5-3(2.5) mg/3 ml] 3 ml NEB Q6H 01/15 Metoprolol Tartrate [Lopressor 25 mg Tablet] 25 mg PO Q12 04/11/16 Montelukast Sodium [Singulair 10 mg Tablet] 10 mg PO QPM 04/11/16 Omeprazole 40 mg PO DAILY 04/11/16 Potassium Chloride [Klor-Con 10 Meq Tablet.sa] 20 meq PO DAILY 04/11/16 Quetiapine Fumarate [Seroquel 100 mg Tablet] 100 mg PO QHS 04/11/16 Venlafaxine HCl [Venlafaxine HCl ER] 150 mg PO BID 04/11/16 Liothyronine Sodium [Cytomel 25 Mcg Tablet] 25 mcg PO DAILY 04/12/16 Thyroid (Pork) [[place] Thyroid 60 mg Tablet] 60 mg PO DAILY 04/12/16 Aspirin [Ecotrin 81 mg EC Tablet] 81 mg PO DAILY #30 tabec 04/14/16 Atorvastatin Calcium [Lipitor 40 mg Tablet] 40 mg PO QHS #30 tablet 04/14/16 Clopidogrel Bisulfate [Plavix 75 mg Tablet] 75 mg PO DAILY #30 tablet 04/14/16 History of Present Illness History of Present Illness: CRISTIANE LOVE is a 60 year old female This is a 60-year-old female present in the emergency department with a right- sided facial droop and weakness and patient initial CT head is negative patient' s MRI shows the nonhemorrhagic lacunar stroke. And patient was put on stroke protocol Hospital Course Hospital Course: This is a 60-year-old female present in the emergency department with a right- sided facial droop and weakness and patient initial CT head was negative but patient was put on the stroke protocol and patient MRI shows acute nonhemorrhagic strokes and patient's otherwise other blood work is all stable patient's carotid Doppler was also stable and patient's echocardiogram was also stable to. She was put in the Plavix with aspirin and increase the state into the 40 mg and also discussed about the smoking cessation's. Discussed with the patient and the family about all the testing and finding and further plan. Patient is otherwise doing very well patient's p.o. intake is good patient smoke on a hallway by herself and patient does not require any physical therapy. Patient is very anxious to go home patient's discharge home with the stable conditions Physical Exam Vital Signs: Temp Pulse Resp BP Pulse Ox 97.6 F 85 16 170/92 H 93 04/14/16 08:55 04/14/16 08:55 04/14/16 08:55 04/14/16 08:55 04/14/16 08:55 Intake & Output 04/13/16 04/14/16 04/15/16 06:59 06:59 06:59 Intake Total 8187 7771 Output Total 3400 4000 Balance -343 -1297 Weight 73.1 kg 73.9 kg General appearance: PRESENT: no acute distress, well-developed, well-nourished Head exam: PRESENT: atraumatic, normocephalic Eye exam: PRESENT: conjunctiva pink, EOMI, PERRLA. ABSENT: scleral icterus Ear exam: PRESENT: normal external ear exam Mouth exam: PRESENT: moist, tongue midline Neck exam: PRESENT: full ROM. ABSENT: carotid bruit, JVD, lymphadenopathy, thyromegaly Respiratory exam: PRESENT: clear to auscultation nuvia Cardiovascular exam: PRESENT: RRR. ABSENT: diastolic murmur, rubs, systolic murmur Pulses: PRESENT: normal dorsalis pedis pul, +2 pedal pulses bilateral Vascular exam: PRESENT: normal capillary refill GI/Abdominal exam: PRESENT: normal bowel sounds, soft. ABSENT: distended, guarding, mass, organolmegaly, rebound, tenderness Rectal exam: PRESENT: deferred Extremities exam: ABSENT: pedal edema Musculoskeletal exam: PRESENT: ambulatory Neurological exam: PRESENT: alert, awake, oriented to person, oriented to place , oriented to time, oriented to situation, CN II-XII grossly intact. ABSENT: motor sensory deficit Psychiatric exam: PRESENT: appropriate affect, normal mood. ABSENT: homicidal ideation, suicidal ideation Skin exam: PRESENT: dry, intact, warm. ABSENT: cyanosis, rash Results Laboratory Results: 04/12/16 04:03 04/12/16 04:03 Impressions: Chest X-Ray 04/11/16 11:10 IMPRESSION: No significant interval change. No acute changes. Other findings as noted above Head CT 04/11/16 11:10 IMPRESSION: NORMAL BRAIN CT WITHOUT CONTRAST. Carotid Doppler Study 04/13/16 00:00 IMPRESSION: NO HEMODYNAMICALLY SIGNIFICANT STENOSIS. Head MRI 04/13/16 00:00 IMPRESSION: Acute, nonhemorrhagic lacunar infarcts left felicia. Qualifiers PATEINT BEING DISCHARGED WITH ANY OF THE FOLLOWING DIAGNOSIS?: Stroke VTE patient discharged on overlapping Therapy?: No Stroke Pt being discharged on Anti-thrombolytic therapy?: Yes Stroke Pt being discharged on Anti-coagulation therapy?: No Reason(s) for not prescribing Anti-coagulation therapy:: Not indicated Stroke Pt being discharged on Statins?: Yes Plan Time Spent: Greater than 30 Minutes - Patient is discharged home with the stable conditions with the maximum stroke therapy and discussed about all lifestyle change and follow-up outpatient in 1 week
== END 2016-04-14 09:29 | disposition home or self-care (01) ==
LOC: ER 11:02 → UNDOADMOB 13:11 → EH 13:11 → 3W 14:46 → EH 14:46 → 3W 16:25
PROVIDERS: ADMIT Family Medicine; ATTEND Family Medicine
DX: G45.9 Transient cerebral ischemic attack, unspecified (principal); I10 Essential (primary) hypertension; Z68.28 Body mass index [BMI] 28.0-28.9, adult; F31.9 Bipolar disorder, unspecified; I25.10 Atherosclerotic heart disease of native coronary artery without angina pectoris; F17.210 Nicotine dependence, cigarettes, uncomplicated; E78.5 Hyperlipidemia, unspecified; Z79.899 Other long term (current) drug therapy; Z79.82 Long term (current) use of aspirin; Z86.711 Personal history of pulmonary embolism; E11.9 Type 2 diabetes mellitus without complications; Z98.61 Coronary angioplasty status; F12.90 Cannabis use, unspecified, uncomplicated; Z88.5 Allergy status to narcotic agent; Z88.8 Allergy status to other drugs, medicaments and biological substances; E78.00 Pure hypercholesterolemia, unspecified; E66.9 Obesity, unspecified
CPT/HCPCS: 93005; 99291; 36415 ×2; 82553; 82962 ×4; 82550; 85025 ×2; 85610; 85730; 80053 ×2; 84484; 83036; 80061; 93306; 93880; 70551; 71010; 70450; 93010; 94640 ×4; G0378 ×4; J3490 ×10; J3010; J1650 ×2; J7030; J7620 ×4

== ENCOUNTER 2016-06-05 13:37 | Emergency (ER) | payer BC, MEDICAID ==
[2016-06-05] MEDS ORDERED: NORMAL SALINE 1000 ML 1,000 ML IV ONE ×2 (14:02→16:37)
[2016-06-05] MEDS ORDERED: ONDANSETRON 4 MG TAB.RAPDIS PO ONE (14:02)
[2016-06-05] MEDS ORDERED: METOCLOPRAMIDE HCL 10 MG TABLET PO ONE (14:03)
[2016-06-05] MEDS ORDERED: DIPHENHYDRAMINE HCL 25 MG CAPSULE PO ONE (14:03)
--- NOTE | 2016-06-05 14:06 | ER Document Report ---
ED Medical Screen (RME) - General Chief Complaint: Headache Stated Complaint: HEADACHE Notes: Patient has been having a headache since about 10 PM last night. She was sitting when she was suddenly struck with a headache in the back of the head and neck region. It's been present all night and associated with nausea and she 's vomited about 5 or 6 times. Patient has been off and on of Plavix over the recent weeks. She had a stroke in April and was admitted here. She's been on Plavix intermittently because she's had to stop it for a dental examination and also for an aspiration of a structure in her neck. She's had a history of headaches, but not like this headache. She had one headache about a week ago. Then it's been months since she had a headache before that. Has not had any fever or chills. Smoker until 24 hours ago. PMH: Hypertension, NIDDM, stroke April 11, history of breast cancer, history of thyroid cancer. TRAVEL OUTSIDE OF THE [place] IN LAST 30 DAYS: No - Related Data Allergies/Adverse Reactions: morphine [Morphine] Allergy (Verified 06/05/16 13:42) nalbuphine [From Nubain] Allergy (Verified 06/05/16 13:42) plastic tape Allergy (Uncoded 06/05/16 13:42) Past Medical History - Past Medical History Cardiac Medical History: Reports: Hx Coronary Artery Disease, Hx Hypercholesterolemia, Hx Hypertension, Hx Pulmonary Embolism Pulmonary Medical History: Reports: Hx Asthma, Hx COPD Denies: Hx Tuberculosis Endocrine Medical History: Reports: Hx Diabetes Mellitus Type 2 Renal/ Medical History: Denies: Hx Peritoneal Dialysis Psychiatric Medical History: Reports: Hx Bipolar Disorder, Hx Depression Past Surgical History: Reports: Hx Appendectomy, Hx Cardiac Catheterization - stent x 1, Hx Cholecystectomy, Hx Mastectomy - left side, pt states many years ago, Hx Thyroid Surgery - Immunizations Hx Diphtheria, Pertussis, Tetanus Vaccination: Yes Physical Exam - Vital signs Vitals: Temp Pulse Resp BP Pulse Ox 97.5 F 102 H 18 171/110 H 94 06/05/16 13:43 06/05/16 13:43 06/05/16 13:43 06/05/16 13:43 06/05/16 13:43 Course - Vital Signs Vital signs: Temp Pulse Resp BP Pulse Ox 97.5 F 100 18 171/110 H 94 06/05/16 13:43 06/05/16 13:56 06/05/16 13:56 06/05/16 13:56 06/05/16 13:56
[2016-06-05] MEDS ORDERED: PROCHLORPERAZINE EDISYLATE INJ 10 MG/2 ML VIAL IV ONE (14:52)
--- NOTE | 2016-06-05 15:00 | ER Document Report ---
ED Headache - General Mode of Arrival: Ambulatory Information source: Patient TRAVEL OUTSIDE OF THE [place] IN LAST 30 DAYS: No - HPI Patient complains to provider of: Headache Patient reports: Other - History of migraines Onset: Other - last night; 2200 Timing: Still present Associated symptoms: Other - see notes above Exacerbated by: Movement - neck movement <MEGAN WOODALL - Last Filed: 06/05/16 16:09> <ROBIN HOWELL - Last Filed: 06/05/16 21:28> - General Chief Complaint: Headache Stated Complaint: HEADACHE Notes: 60 year old female with history of migraines, hypertension and hyperlipidemia presents to the ED complaining of a bilateral frontal headache and sinus pressure/pain that started last night. Patient reports that the pain is constant and still present. Patient states that she has been congested and wheezing recently, and additionally complains of hot and cold flashes, nausea, vomiting, and loose stool ("but not diarrhea"). Patient also reports that her pain is exacerbated when moving her neck or opening her eyes. Patient denies fever, neck pain, or shortness of breath. Patient has recently started an antibiotic regimen. (MEGAN WOODALL) - Related Data Allergies/Adverse Reactions: morphine [Morphine] Allergy (Verified 06/05/16 18:50) nalbuphine [From Nubain] Allergy (Verified 06/05/16 18:50) plastic tape Allergy (Uncoded 06/05/16 18:50) Past Medical History - General Information source: Patient - Social History Smoking Status: Unknown if Ever Smoked Family History: Reviewed & Not Pertinent Patient has suicidal ideation: No Patient has homicidal ideation: No - Past Medical History Cardiac Medical History: Reports: Hx Coronary Artery Disease, Hx Hypercholesterolemia, Hx Hypertension, Hx Pulmonary Embolism Pulmonary Medical History: Reports: Hx Asthma, Hx COPD Denies: Hx Tuberculosis Endocrine Medical History: Reports: Hx Diabetes Mellitus Type 2 Renal/ Medical History: Denies: Hx Peritoneal Dialysis Psychiatric Medical History: Reports: Hx Bipolar Disorder, Hx Depression Past Surgical History: Reports: Hx Appendectomy, Hx Cardiac Catheterization - stent x 1, Hx Cholecystectomy, Hx Mastectomy - left side, pt states many years ago, Hx Thyroid Surgery - Immunizations Hx Diphtheria, Pertussis, Tetanus Vaccination: Yes Hx Pneumococcal Vaccination: 10/30/08 <MEGAN WOODALL - Last Filed: 06/05/16 16:09> Review of Systems - Review of Systems Constitutional: See HPI, Other - hot and cold flashes. denies: Fever EENT: See HPI, Nose congestion, Sinus pressure Cardiovascular: No symptoms reported Respiratory: No symptoms reported, Wheezing. denies: Short of breath Gastrointestinal: See HPI, Nausea, Vomiting Genitourinary: No symptoms reported Female Genitourinary: No symptoms reported Musculoskeletal: No symptoms reported. denies: Neck pain Skin: No symptoms reported Hematologic/Lymphatic: No symptoms reported Neurological/Psychological: See HPI, Headaches - bilateral frontal -: Yes All other systems reviewed and negative <MEGAN WOODALL - Last Filed: 06/05/16 16:09> Physical Exam - Vital signs Interpretation: Hypertensive, Tachycardic - General General appearance: Alert, Other - appears uncomfortable In distress: None - HEENT Head: Normocephalic, Atraumatic Eyes: Normal Extraocular movements intact: Yes Pupils: PERRL Sinus: Tenderness - bilateral maxillary sinuses. No: Normal - Respiratory Respiratory status: No respiratory distress Breath sounds: Wheezing - slight expiratory wheeze. No: Normal - Cardiovascular Rhythm: Regular, Tachycardia Heart sounds: Normal auscultation - Abdominal Inspection: Normal Distension: No distension Tenderness: Nontender - Back Back: Normal - Extremities General upper extremity: Normal inspection, Normal ROM General lower extremity: Normal inspection, Normal ROM - Neurological Neuro grossly intact: Yes Cognition: Normal Orientation: AAOx4 [place] Coma Scale Eye Opening: Spontaneous [place] Coma Scale Verbal: Oriented [place] Coma Scale Motor: Obeys Commands [place] Coma Scale Total: 15 Speech: Normal - Psychological Associated symptoms: Normal affect, Normal mood - Skin Skin Temperature: Warm Skin Moisture: Dry Skin Color: Normal <MEGAN WOODALL - Last Filed: 06/05/16 16:09> <ROBIN HOWELL - Last Filed: 06/05/16 21:28> - Vital signs Vitals: Temp Pulse Resp BP Pulse Ox 97.5 F 102 H 18 171/110 H 94 06/05/16 13:43 06/05/16 13:43 06/05/16 13:43 06/05/16 13:43 06/05/16 13:43 Course - Laboratory Result Diagrams: 06/05/16 15:00 06/05/16 15:00 <MEGAN WOODALL - Last Filed: 06/05/16 16:09> - Laboratory Result Diagrams: 06/05/16 15:00 06/05/16 16:12 <ROBIN HOWELL - Last Filed: 06/05/16 21:28> - Re-evaluation Re-evalutation: 06/05/16 Patient is a 6-year-old female who presents with a headache. Patient is afebrile. Patient does have hypertension. Patient CT is not showing any acute intracranial abnormality except for maxillary sinusitis. Patient has been congestion and does have some facial pain and tenderness. Patient was medicated and fluid resuscitated. She is feeling much better and wants to go home. Patient had complained of some indigestion. Troponin is negative. EKG with no acute findings. Suggested to patient that we repeat her cardiac enzymes but she does not want to do this. Patient states that it started after she got medications at triage and it is from indigestion only. Patient states that she is ready to go home and she will follow up with her primary care doctor on Wednesday. She will return if she has any further concerns. Stable time of discharge. She is to call Dr. Woodall Wednesday for an appointment. ( ROBIN HOWELL) - Vital Signs Vital signs: Temp Pulse Resp BP Pulse Ox 97.5 F 109 H 20 185/90 H 100 06/05/16 18:54 06/05/16 18:54 06/05/16 18:54 06/05/16 18:54 06/05/16 18:54 - Laboratory Laboratory results interpreted by me: 06/05/16 06/05/16 15:00 16:12 WBC 12.5 H RBC 5.37 H Hgb 15.9 H Plt Count 461 H Absolute Neutrophils 9.4 H Est GFR ( Amer) 59 L Est GFR (Non-Af Amer) 49 L Alkaline Phosphatase 153 H Critical Care Note - Critical Care Note Total time excluding time spent on procedures (mins): 15 - evaluation and management of acute headache, multiple re-evaluations, pain control, counseling of patient <ROBIN HOWELL - Last Filed: 06/05/16 21:28> Discharge <MEGAN WOODALL - Last Filed: 06/05/16 16:09> <ROBIN HOWELL Filed: 06/05/16 21:28> - Discharge Clinical Impression: Headache Qualifiers: Headache type: unspecified Headache chronicity pattern: unspecified pattern Intractability: not intractable Qualified Code(s): R51 - Headache Sinusitis Qualifiers: Sinusitis location: maxillary Chronicity: acute Recurrence: not specified as recurrent Qualified Code(s): J01.00 - Acute maxillary sinusitis, unspecified Condition: Stable Disposition: HOME, SELF-CARE Instructions: Headache ([facility]), Sinusitis ([facility]) Prescriptions: Amox Tr/Potassium Clavulanate [Augmentin 875-125 Tablet] 1 tab PO BID #14 tablet Ondansetron [Zofran Odt 4 mg Tablet] 1 - 2 tab PO Q4H PRN #15 tab.rapdis PRN Reason: For Nausea/Vomiting Prochlorperazine Maleate [Compazine 10 mg Tablet] 10 mg PO ASDIR PRN #14 tablet PRN Reason: Referrals: TYRON WOODALL MD [Primary Care Provider] - 06/08/16 Scribe Documentation - Scribe Written by Silvere:: Thaddeus Rodrigues, 06/05/2016 1501 acting as scribe for :: Yvonne <MEGAN WOODALL - Last Filed: 06/05/16 16:09>
[2016-06-05 15:15] LABS: ABSOLUTE BASOPHILS # (AUTO) 0.1 10^3/uL (0.0-0.2); ABSOLUTE LYMPHOCYTES (AUTO) 2.4 10^3/uL (0.5-4.7); ABSOLUTE MONOCYTES (AUTO) 0.5 10^3/uL (0.1-1.4); ABSOLUTE NEUT (AUTO) 9.4 10^3/uL (1.7-8.2); BASOPHILS % (AUTO) 1.2 % (0-2); EOSINOPHILS % (AUTO) 0.3 % (0-6); HEMOGLOBIN 15.9 g/dL (12.0-15.5); HGB HCT DIFFERENCE 1.7; LYMPHOCYTES % (AUTO) 19.5 % (13-45); MEAN CORPUSCULAR HEMOGLOBIN 29.5 pg (27.0-33.4); MEAN CORPUSCULAR HGB CONC 34.4 g/dL (32.0-36.0); MEAN CORPUSCULAR VOLUME 86 fl (80-97); MONOCYTES % (AUTO) 4.4 % (3-13); RED BLOOD COUNT 5.37 10^6/uL (3.72-5.28); RED CELL DISTRIBUTION WIDTH 13.9 % (11.5-14.0); SEGMENTED NEUTROPHILS % (AUTO) 74.6 % (42-78); WHITE BLOOD COUNT 12.5 10^3/uL (4.0-10.5)
[2016-06-05] MEDS ORDERED: IPRATROPIUM/ALBUTEROL 0.5-2.5 MG/3 ML AMPUL NEB ONE (15:42)
[2016-06-05] MEDS ORDERED: SUCRALFATE 1 GM TABLET PO ONE (16:22)
[2016-06-05 17:08] LABS: ALANINE AMINOTRANSFERASE 37 U/L (9-52); ALBUMIN 4.2 g/dL (3.5-5.0); ALKALINE PHOSPHATASE 153 U/L (38-126); ANION GAP 10 (5-19); ASPARTATE AMINO TRANSFERASE 26 U/L (14-36); BILIRUBIN,DIRECT 0.3 mg/dL (0.0-0.4); BILIRUBIN,TOTAL 0.5 mg/dL (0.2-1.3); BLOOD UREA NITROGEN 13 mg/dL (7-20); CARBON DIOXIDE 29 mmol/L (22-30); CHLORIDE 99 mmol/L (98-107); CREATININE RESULT 1.13 mg/dL (0.52-1.25); GLUCOSE 92 mg/dL (75-110); POTASSIUM 3.7 mmol/L (3.6-5.0); SODIUM 137.7 mmol/L (137-145); TOTAL PROTEIN 7.3 g/dL (6.3-8.2)
[2016-06-05 18:55] VITALS: BP 185/90
== END 2016-06-05 18:52 | disposition home or self-care (01) ==
LOC: ER 13:37
DX: R51 Headache (principal); J01.00 Acute maxillary sinusitis, unspecified; R11.2 Nausea with vomiting, unspecified; I10 Essential (primary) hypertension; E78.5 Hyperlipidemia, unspecified; Z88.6 Allergy status to analgesic agent; I25.10 Atherosclerotic heart disease of native coronary artery without angina pectoris; E78.00 Pure hypercholesterolemia, unspecified; Z86.711 Personal history of pulmonary embolism; J44.9 Chronic obstructive pulmonary disease, unspecified; E11.9 Type 2 diabetes mellitus without complications; Z90.49 Acquired absence of other specified parts of digestive tract; Z90.12 Acquired absence of left breast and nipple
CPT/HCPCS: 99284; 96361; 96374; 36415; 85025; 80053; 84484; 71010; 70450; S0119; J0780; J7030; J7620

== ENCOUNTER 2016-06-15 14:14 | Emergency (ER) | payer BC, MEDICAID ==
[2016-06-15 14:36] VITALS: BP 158/84
--- NOTE | 2016-06-15 15:00 | ER Document Report ---
ED Medical Screen (RME) - General Chief Complaint: Headache Stated Complaint: HEADACHE,ABDOMINAL PAIN,DIARRHEA Notes: Patient with tension headache 2 days, seen here 10 days ago with a CT scan showing right maxillary sinusitis. I have greeted and performed a rapid initial assessment of this patient. A comprehensive ED assessment and evaluation of the patient, analysis of test results and completion of the medical decision making process will be conducted by additional ED providers. TRAVEL OUTSIDE OF THE [place] IN LAST 30 DAYS: No - Related Data Allergies/Adverse Reactions: morphine [Morphine] Allergy (Verified 06/05/16 18:50) nalbuphine [From Nubain] Allergy (Verified 06/05/16 18:50) plastic tape Allergy (Uncoded 06/05/16 18:50) Past Medical History - Past Medical History Cardiac Medical History: Reports: Hx Coronary Artery Disease, Hx Hypercholesterolemia, Hx Hypertension, Hx Pulmonary Embolism Pulmonary Medical History: Reports: Hx Asthma, Hx COPD Denies: Hx Tuberculosis Endocrine Medical History: Reports: Hx Diabetes Mellitus Type 2 Renal/ Medical History: Denies: Hx Peritoneal Dialysis Psychiatric Medical History: Reports: Hx Bipolar Disorder, Hx Depression Past Surgical History: Reports: Hx Appendectomy, Hx Cardiac Catheterization - stent x 1, Hx Cholecystectomy, Hx Mastectomy - left side, pt states many years ago, Hx Thyroid Surgery - Immunizations Hx Diphtheria, Pertussis, Tetanus Vaccination: Yes Physical Exam - Vital signs Vitals: Temp Pulse Resp BP Pulse Ox 98.5 F 91 18 158/84 H 94 06/15/16 14:34 06/15/16 14:34 06/15/16 14:34 06/15/16 14:34 06/15/16 14:34 Course - Vital Signs Vital signs: Temp Pulse Resp BP Pulse Ox 98.5 F 91 18 158/84 H 94 06/15/16 14:34 06/15/16 14:34 06/15/16 14:34 06/15/16 14:34 06/15/16 14:34
[2016-06-15] MEDS ORDERED: NAPROXEN 250 MG TABLET PO ONE (15:13)
[2016-06-15] MEDS ORDERED: DIPHENHYDRAMINE HCL 25 MG CAPSULE PO ONE (15:13)
[2016-06-15] MEDS ORDERED: PROCHLORPERAZINE MALEATE 10 MG TABLET PO ONE (15:13)
== END 2016-06-15 16:30 | disposition left against medical advice (07) ==
LOC: ER 14:14
DX: R51 Headache (principal); R10.9 Unspecified abdominal pain; R19.7 Diarrhea, unspecified; I25.10 Atherosclerotic heart disease of native coronary artery without angina pectoris; E78.00 Pure hypercholesterolemia, unspecified; I10 Essential (primary) hypertension; J44.9 Chronic obstructive pulmonary disease, unspecified; E11.9 Type 2 diabetes mellitus without complications; Z88.6 Allergy status to analgesic agent; Z86.711 Personal history of pulmonary embolism; Z90.49 Acquired absence of other specified parts of digestive tract; Z90.12 Acquired absence of left breast and nipple
CPT/HCPCS: 99281; S0183

== ENCOUNTER 2016-08-28 11:08 | Inpatient (IN) | payer BC, MEDICAID ==
[2016-08-28 11:54] LABS: ABSOLUTE BASOPHILS # (AUTO) 0.2 10^3/uL (0.0-0.2); ABSOLUTE EOSINOPHILS # (AUTO) 0.2 10^3/uL (0.0-0.6); ABSOLUTE MONOCYTES (AUTO) 0.6 10^3/uL (0.1-1.4); ABSOLUTE NEUT (AUTO) 7.5 10^3/uL (1.7-8.2); BASOPHILS % (AUTO) 1.3 % (0-2); EOSINOPHILS % (AUTO) 1.7 % (0-6); HEMATOCRIT 51.2 % (36.0-47.0); HEMOGLOBIN 16.5 g/dL (12.0-15.5); HGB HCT DIFFERENCE -1.7; LYMPHOCYTES % (AUTO) 26.2 % (13-45); MEAN CORPUSCULAR HEMOGLOBIN 28.8 pg (27.0-33.4); MEAN CORPUSCULAR HGB CONC 32.2 g/dL (32.0-36.0); MEAN CORPUSCULAR VOLUME 90 fl (80-97); MONOCYTES % (AUTO) 5.2 % (3-13); RED BLOOD COUNT 5.72 10^6/uL (3.72-5.28); RED CELL DISTRIBUTION WIDTH 13.3 % (11.5-14.0); SEGMENTED NEUTROPHILS % (AUTO) 65.6 % (42-78); WHITE BLOOD COUNT 11.5 10^3/uL (4.0-10.5)
[2016-08-28 12:00] LABS: PROTHROMBIN TIME 10.9 SEC (11.4-15.4)
[2016-08-28 12:16] LABS: ALANINE AMINOTRANSFERASE 25 U/L (9-52); ALBUMIN 4.1 g/dL (3.5-5.0); ALKALINE PHOSPHATASE 220 U/L (38-126); ANION GAP 12 (5-19); ASPARTATE AMINO TRANSFERASE 30 U/L (14-36); BILIRUBIN,DIRECT 0.4 mg/dL (0.0-0.4); BILIRUBIN,TOTAL 0.4 mg/dL (0.2-1.3); BLOOD UREA NITROGEN 19 mg/dL (7-20); CALCIUM 9.3 mg/dL (8.4-10.2); CARBON DIOXIDE 24 mmol/L (22-30); CHLORIDE 100 mmol/L (98-107); CREATINE KINASE 61 U/L (30-135); CREATININE RESULT 1.55 mg/dL (0.52-1.25); GLUCOSE 140 mg/dL (75-110); LIPASE 191.2 U/L (23-300); MAGNESIUM 1.8 mg/dL (1.6-2.3); POTASSIUM 3.6 mmol/L (3.6-5.0); SODIUM 136.4 mmol/L (137-145); TOTAL PROTEIN 7.4 g/dL (6.3-8.2)
[2016-08-28 12:26] LABS: CREATINE KINASE MB 2.87 ng/mL (<4.55)
[2016-08-28 12:34] LABS: TROPONIN I 0.038 ng/mL
--- NOTE | 2016-08-28 12:34 | RADIOLOGY REPORT (SQ) ---
EXAM DESCRIPTION: CHEST PA/LAT COMPLETED DATE/TIME: 08/28/2016 12:14 pm REASON FOR STUDY: elevated bp bucio COMPARISON: 04/11/2016 EXAM PARAMETERS: NUMBER OF VIEWS: two views TECHNIQUE: Digital Frontal and Lateral radiographic views of the chest acquired. RADIATION DOSE: NA LIMITATIONS: none FINDINGS: LUNGS AND PLEURA: the lungs are hyperexpanded. There is no pulmonary infiltrate or pleur al effusion. There is no mass. MEDIASTINUM AND HILAR STRUCTURES: No masses or contour abnormalities. HEART AND VASCULAR STRUCTURES: Heart normal size. No evidence for failure. BONES: No acute findings. HARDWARE: None in the chest. OTHER: No other significant finding. IMPRESSION: Chronic lung changes with no acute cardiopulmonary disease. TECHNICAL DOCUMENTATION: JOB ID: [id number] [employer]- All Rights Reserved
--- NOTE | 2016-08-28 12:38 | RADIOLOGY REPORT (SQ) ---
EXAM DESCRIPTION: CT HEAD WITHOUT COMPLETED DATE/TIME: 08/28/2016 12:18 pm REASON FOR STUDY: headache COMPARISON: 06/05/2016 TECHNIQUE: Axial images acquired through the brain without intravenous contrast. Images reviewed wi th bone, brain and subdural windows. Images stored on PACS. All CT scanners at this facility use dose modulation, iterative reconstruction, and/or weight based d osing when appropriate to reduce radiation dose to as low as reasonably achievable (ALARA). [facility]: Dose Right [facility]: CareDose [facility]: Dose Right [facility]: Teradose 4D [facility]: [employer] RADIATION DOSE: Up-to-date CT equipment and radiation dose reduction techniques were employed. CTDIv ol: 63.2 mGy. DLP: 1163 mGy-cm. mGy. LIMITATIONS: None. FINDINGS: VENTRICLES: Normal size and contour. CEREBRUM: No masses. No hemorrhage. No midline shift. Normal collado/white matter differentiation. N o evidence for acute infarction. CEREBELLUM: No masses. No hemorrhage. No alteration of density. No evidence for acute infarction. EXTRAAXIAL SPACES: No fluid collections. No masses. ORBITS AND GLOBE: No intra- or extraconal masses. Normal contour of globe without masses. CALVARIUM: No fracture. PARANASAL SINUSES: A mucous retention cyst is present in the right maxillary sinus. The sinus is imp roved compared to the earlier study. SOFT TISSUES: No mass or hematoma. OTHER: No other significant finding. IMPRESSION: Right maxillary sinus disease with no acute intracranial pathology. TECHNICAL DOCUMENTATION: JOB ID: [id number] Quality ID # [id number]: Final reports with documentation of one or more dose reduction techniques (e.g., Au tomated exposure control, adjustment of the mA and/or kV according to patient size, use of iterative reconstruction technique) 2010 [employer]- All Rights Reserved
[2016-08-28] MEDS ORDERED: NORMAL SALINE 1000 ML 1,000 ML IV ONE (12:53)
[2016-08-28] MEDS ORDERED: LABETALOL HCL INJ 20 MG/4 ML DISP.SYRIN IV ONE ×2 (12:54→14:36)
[2016-08-28] MEDS ORDERED: MAG HYDROX/AL HYDROX/SIMETH SUSP 30 ML UDCUP PO ONE (13:10)
[2016-08-28] MEDS ORDERED: LIDOCAINE 2% VISCOUS SOLN 20 ML UDCUP PO ONE (13:10)
[2016-08-28] MEDS ORDERED: CLONIDINE HCL 0.2 MG TABLET PO ONE (13:35)
[2016-08-28] MEDS ORDERED: CEFTRIAXONE 1 GM/D5W RTU 50 ML IV ONE (13:48)
[2016-08-28] MEDS ORDERED: ONDANSETRON HCL INJ/PF 4 MG/2 ML SDV IV PRN (16:33)
[2016-08-28] MEDS ORDERED: PROCHLORPERAZINE MALEATE 10 MG TABLET PO PRN (16:38)
--- NOTE | 2016-08-28 16:52 | RADIOLOGY REPORT (SQ) ---
EXAM DESCRIPTION: MRI HEAD WITHOUT COMPLETED DATE/TIME: 08/28/2016 4:22 pm REASON FOR STUDY: Headache elevated bp COMPARISON: None. TECHNIQUE: Multiplanar imaging includes non-contrasted T1, T2, FLAIR, and diffusion with ADC map seq uences. Images stored on PACS. LIMITATIONS: None. FINDINGS: ANATOMY: No anomalies. Normal vascular flow voids. Pituitary fossa normal. CSF SPACES: Normal in size and contour. No hemorrhage. CEREBRUM: Sulci and gyri normal in size and contour. Normal white matter signal on FLAIR imaging. No evidence of hemorrhage, mass, or extraaxial fluid collection. POSTERIOR FOSSA: No signal alteration. No hemorrhage. No edema, masses or mass effect. Internal kiera tory canals, cerebello-pontine angles, mastoids normal. DIFFUSION IMAGING: Negative for acute or sub-acute infarction. ORBITS: No masses. Globes normal. PARANASAL SINUSES: The mucous retention cysts is present in the right maxillary sinus. OTHER: No other significant finding. IMPRESSION: Mild right maxillary sinus disease with no acute intracranial pathology. TECHNICAL DOCUMENTATION: JOB ID: [id number]- All Rights Reserved
--- NOTE | 2016-08-28 17:11 | RADIOLOGY REPORT (SQ) ---
EXAM DESCRIPTION: MRA HEAD WITHOUT COMPLETED DATE/TIME: 08/28/2016 4:22 pm REASON FOR STUDY: Headache elevated bp COMPARISON: None. TECHNIQUE: Axial 3-D [id number] acquisition imaging performed through the brain in the area of t he [place] of [place]. Images reformatted using 3-D MIPS. LIMITATIONS: None. FINDINGS: SOURCE IMAGES: No unexpected findings on source images. No large masses. 3-D MIP: No aneurysm. No occlusions. No significant stenosis. OTHER: No other significant finding. IMPRESSION: NORMAL MRA OF THE [place]. TECHNICAL DOCUMENTATION: JOB ID: [id number] [employer]- All Rights Reserved
[2016-08-28] MEDS: ACETAMINOPHEN 325 MG TABLET PO PRN (17:14)
--- NOTE | 2016-08-28 17:18 | HISTORY AND PHYSICAL E ---
History and Physical NAME: CRISTIANE LOVE : 1955 AGE: 61Y ADMITTED: 08/28/2016 ROOM: CHIEF COMPLAINT: Headache, uncontrolled blood pressure. HISTORY OF PRESENT ILLNESS: This is a 61-year-old female with a significant history of hypertension, hyperlipidemia, type 2 diabetes mellitus, history of thyroid cancer status post surgery, history of breast cancer, history of pulmonary embolism, deep venous thrombosis, history of sleep apnea, and multiple other etiologies, and history of stroke and lacunar infarctions in the past, basically came to the office with a complaint of not feeling well with headache since the last four days and the patient's blood pressure in the office was 198/120. The patient was given one dose of clonidine but still running high. According to the patient, since the last four days also noticed some nausea, vomiting, and unable to keep any medications down. Patient is currently taking metoprolol twice a day for blood pressure. Patient used to take clonidine in the past. At this time the patient is otherwise alert, awake, no other neurological symptoms. Besides the headaches and not feeling well, patient denies any other symptoms. Patient has multiple comorbidities and multiple other histories in the past with strokes. Patient was, at this point, sent to the emergency department where initial head CT was all negative. Patient's blood work was all stable. Patient was given 1 liter of IV bolus in the ER because the ER physician thought the patient was dehydrated. Patient's kidney function was slightly elevated. Patient usually in normal rate between 1.4 range with underlying chronic kidney disease. Patient as this point is admitted to the hospital with uncontrolled blood pressures and further evaluation. Patient denies any chest pain, denies any shortness of breath. PAST MEDICAL HISTORY: 1. History of hypertension. 2. History of currently hypothyroidism status post thyroid cancer with surgery, currently seeing Dr. Wang in [place]. 3. History of coronary disease currently seeing Dr. Robison's office. 4. History of sleep apnea, history of asthma and COPD and currently seeing Dr. Miranda for that. 5. History of type 2 diabetes mellitus with recent A1c less than 7. 6. History of breast cancer. 7. History of deep venous thrombosis and pulmonary embolism in the past. CURRENT MEDICATIONS: 1. Ventolin HFA p.r.n. 2. Advair Diskus one puff twice daily. 3. Omeprazole 40 mg daily. 4. *------* 30 mg daily. 5. Aspirin 81 mg daily. 6. Singular 10 mg daily. 7. Ability 30 mg 2 tablets daily for the bipolar disorder. 8. Effexor ER 150 mg daily. 9. Flonase daily. 10. DuoNeb nebulizer p.r.n. 11. Xyzal 5 mg daily. 12. Hydroxyzine p.r.n. 13. Acetaminophen p.r.n. 14. Zofran p.r.n. 15. Crestor 40 mg daily. 16. Fenofibrate daily. 17. Plavix 75 mg daily. 18. [place] Thyroid 60 mg daily. 19. Seroquel 100 mg daily. 20. Potassium daily. 21. Lidoderm daily. 22. Metoprolol 25 mg twice daily. PSYCHIATRIC HISTORY: Patient has a significant history of bipolar disorder, anxiety, and depression. SOCIAL HISTORY: The patient is currently . Positive for smoking. No alcohol. Patient has a history of substance abuse in the past. REVIEW OF SYSTEMS: As above, all other pertinent systems are negative. PAST SURGICAL HISTORY: 1. Appendectomy. 2. Hysterectomy. 3. Breast surgery. 4. Thyroid cancer surgery. 5. Knee surgery. 6. Left hip replacement. PAST HOSPITALIZATION: 1. For the strokes in 2016. 2. History of renal failure. 3. History of thyroid and breast cancer surgery. PHYSICAL EXAMINATION: VITAL SIGNS: Current temperature is 98.8, pulse was 75, blood pressure was 198/120, respirations was 16, O2 sat is 100% on room air. GENERAL: The patient is alert, awake, oriented x3 in no acute distress. HEAD AND NECK: Normocephalic. HORACE. LUNGS: There is no wheezing, no rales, no rhonchi. HEART: S1, S2 is present. ABDOMEN: Soft. Bowel sounds present. EXTREMITIES: No edema. NEUROLOGIC: The patient is moving all four extremities. Cranial nerves grossly intact. Patient's reflexes are all normal. Gait is all normal. All cerebral function is normal. No focal neurological weaknesses. LABORATORY DATA: The patient's lab: WBC is 11.5, hemoglobin is 16.5, platelet is 396, INR was 0.73. Sodium is 136, potassium is 3.6, BUN is 19, creatinine is 1.558. The patient's AST is 30, ALT is 25. Cardiac enzymes: CK MB was 2.87, troponin is 0.03, lipase is 191. Patient's other reports: Head CT was showing right maxillary sinus disease with no acute intractable pathologies. Patient's chest x-ray was done which shows chronic lung change with no acute cardiopulmonary disease. EKG sinus rhythm. No acute finding is noticed. ASSESSMENT: 1. Hypertensive urgency. 2. History of cerebrovascular accident. 3. Type 2 diabetes mellitus. 4. Bipolar disorder 5. Coronary artery disease. 6. COPD, asthma. 7. Obstructive sleep apnea. 8. Hyperlipidemia. 9. Thyroid and breast cancer status post surgery. 10. Depression. PLAN: Admit the patient to the IM. Start the patient on labetalol and start the patient hydralazine p.r.n. Can restart the patient's clonidine and continue to monitor the patient. Will get MRI and MRA of the head for further evaluation for underlying neurological symptoms with severe cardiac enzymes times three. Patient is also under a lot of stress with the family. Will continue other current medications. Patient recently saw [facility] for the thyroid recurrent issues and according to *------* currently stable. Patient, otherwise, continue to currently monitor closely and if the patient's blood pressures remain stable next 48 hours and has no other complications, discharge home depending on the patient's condition. I hope the patient continues to be improved. More than 35 minutes were spent examining the patient and reviewing the records. DICTATING PHYSICIAN: TYRON WOODALL M.D. [id number] Y#: [id number] ID: [id number] JOB#: [id number] ACCT: [id number] cc:MECHELLE MURPHY M.D. >
[2016-08-28 17:22] LABS: CREATINE KINASE MB 2.56 ng/mL (<4.55); TROPONIN I 0.032 ng/mL
--- NOTE | 2016-08-28 17:41 | ER Document Report ---
ED General - General Chief Complaint: High Blood Pressure Stated Complaint: BLOOD PRESSURE PROBLEM Time Seen by Provider: 08/28/16 11:25 TRAVEL OUTSIDE OF THE [place] IN LAST 30 DAYS: No - HPI Patient complains to provider of: Headache elevated blood pressure. Notes: Seen at her local PCPs office for headache during the office visit found to have a very elevated blood pressure greater than 200. Patient states she has been compliant with her blood pressure medication therefore came into the ER for further evaluation. The urging of her PCP. Patient states headache similar headaches in the past however were states top of the head. Patient denies any vomiting vomiting chest pain abdominal pain difficulty urination. Patient denies any trauma. Patient was given clonidine prior to leaving her PCPs office - Related Data Allergies/Adverse Reactions: codeine Allergy (Verified 08/28/16 14:23) morphine [Morphine] Allergy (Verified 08/28/16 11:42) nalbuphine [From Nubain] Allergy (Verified 08/28/16 11:42) plastic tape Allergy (Uncoded 08/28/16 11:42) Home Medications: Current Home Medications Aripiprazole [Abilify 30 mg Tablet] 30 mg PO DAILY 08/28/16 [History] Clopidogrel Bisulfate [Plavix 75 mg Tablet] 75 mg PO DAILY 08/28/16 [History] Fenofibrate 160 mg PO DAILY 08/28/16 [History] Hydroxyzine HCl [Atarax 25 mg Tablet] 25 mg PO DAILY 08/28/16 [History] Levocetirizine Dihydrochloride [Xyzal] 5 mg PO QPM 08/28/16 [History] Lidocaine [Lidoderm 5% (700 mg) Transdermal Patch] 1 patch TOP DAILY 08/28/16 [ History] Liothyronine Sodium [Cytomel 25 Mcg Tablet] 25 mcg PO QAM 08/28/16 [History] Metoprolol Tartrate [Lopressor 25 mg Tablet] 25 mg PO Q12 08/28/16 [History] Mirtazapine [Remeron] 30 mg PO QHS 08/28/16 [History] Quetiapine Fumarate [Seroquel 100 mg Tablet] 100 mg PO QHS 08/28/16 [History] Rosuvastatin Calcium [Crestor] 40 mg PO DAILY 08/28/16 [History] Thyroid (Pork) [[place] Thyroid 60 mg Tablet] 60 mg PO DAILY 08/28/16 [History] Venlafaxine HCl [Effexor Xr] 150 mg PO BID 08/28/16 [History] Past Medical History - Social History Smoking Status: Current Every Day Smoker Frequency of alcohol use: None Drug Abuse: None Family History: Reviewed & Not Pertinent Patient has suicidal ideation: No Patient has homicidal ideation: No - Past Medical History Cardiac Medical History: Reports: Hx Coronary Artery Disease, Hx Hypercholesterolemia, Hx Hypertension, Hx Pulmonary Embolism Pulmonary Medical History: Reports: Hx Asthma, Hx COPD Denies: Hx Tuberculosis Endocrine Medical History: Reports: Hx Diabetes Mellitus Type 2 Renal/ Medical History: Denies: Hx Peritoneal Dialysis Psychiatric Medical History: Reports: Hx Bipolar Disorder, Hx Depression Past Surgical History: Reports: Hx Appendectomy, Hx Cardiac Catheterization - stent x 1, Hx Cholecystectomy, Hx Mastectomy - left side, pt states many years ago, Hx Thyroid Surgery - Immunizations Hx Diphtheria, Pertussis, Tetanus Vaccination: Yes Hx Pneumococcal Vaccination: 10/30/08 Review of Systems - Review of Systems Constitutional: Other - Headache elevated hypertension EENT: No symptoms reported Cardiovascular: No symptoms reported Respiratory: No symptoms reported Gastrointestinal: No symptoms reported Genitourinary: No symptoms reported Female Genitourinary: No symptoms reported Musculoskeletal: No symptoms reported Skin: No symptoms reported Hematologic/Lymphatic: No symptoms reported Neurological/Psychological: No symptoms reported Physical Exam - Vital signs Vitals: Temp Pulse Resp BP Pulse Ox 97.6 F 72 15 213/110 H 98 08/28/16 11:10 08/28/16 11:10 08/28/16 11:10 08/28/16 11:10 08/28/16 11:10 Interpretation: Hypertensive - General General appearance: Appears well, Alert - HEENT Head: Normocephalic, Atraumatic Eyes: Normal Pupils: PERRL - Respiratory Respiratory status: No respiratory distress Chest status: Nontender Breath sounds: Normal Chest palpation: Normal - Cardiovascular Rhythm: Regular Heart sounds: Normal auscultation Murmur: No - Abdominal Inspection: Normal Distension: No distension Bowel sounds: Normal Tenderness: Nontender Organomegaly: No organomegaly - Back Back: Normal, Nontender - Extremities General upper extremity: Normal inspection, Nontender, Normal color, Normal ROM , Normal temperature General lower extremity: Normal inspection, Nontender, Normal color, Normal ROM , Normal temperature, Normal weight bearing. No: Nadege's sign - Neurological Neuro grossly intact: Yes Cognition: Normal Orientation: AAOx4 [place] Coma Scale Eye Opening: Spontaneous [place] Coma Scale Verbal: Oriented [place] Coma Scale Motor: Obeys Commands [place] Coma Scale Total: 15 Speech: Normal Motor strength normal: LUE, RUE, LLE, RLE Sensory: Normal - Psychological Associated symptoms: Normal affect, Normal mood - Skin Skin Temperature: Warm Skin Moisture: Dry Skin Color: Normal Course - Re-evaluation Re-evalutation: 08/28/16 19:23 Lab work shows possible signs of dehydration. Patient's blood pressure did respond to clonidine and labetalol pushes. Head CT was negative. Discussed with PCP requesting MRIs MRIs are negative. Patient will be admitted for hypertensive emergency to the [facility]. - Vital Signs Vital signs: Temp Pulse Resp BP Pulse Ox 97.6 F 72 19 151/75 H 95 08/28/16 11:10 08/28/16 11:10 08/28/16 19:06 08/28/16 19:06 08/28/16 19:06 - Laboratory Result Diagrams: 08/28/16 11:25 08/28/16 11:25 Laboratory results interpreted by me: 08/28/16 08/28/16 08/28/16 11:25 11:25 11:25 WBC 11.5 H RBC 5.72 H Hgb 16.5 H Hct 51.2 H PT 10.9 L Sodium 136.4 L Creatinine 1.55 H Est GFR ( Amer) 41 L Est GFR (Non-Af Amer) 34 L Glucose 140 H Alkaline Phosphatase 220 H Critical Care Note - Critical Care Note Total time excluding time spent on procedures (mins): 35 Comments: Evaluation of patient with hypertensive emergency. Discharge - Discharge Clinical Impression: Hypertensive emergency, Cigarette smoker Headache Qualifiers: Headache type: unspecified Headache chronicity pattern: unspecified pattern Intractability: not intractable Qualified Code(s): R51 - Headache Condition: Good Disposition: ADMITTED INPATIENT Admitting Provider: [facility] Unit Admitted: [facility]
[2016-08-28] MEDS: LANSOPRAZOLE 15 MG TAB.RAP.DR PO SCH (18:14)
[2016-08-28] MEDS: MONTELUKAST SODIUM 10 MG TABLET PO SCH (18:14)
[2016-08-28] MEDS: IPRATROPIUM/ALBUTEROL 0.5-2.5 MG/3 ML AMPUL NEB SCH (20:24)
--- NOTE | 2016-08-28 20:47 | EKG REPORT ---
SEVERITY:- NORMAL ECG - SINUS RHYTHM : Confirmed by: Emilio Clay 28-Aug-2016 20:46:44
[2016-08-28] MEDS ORDERED: CLONIDINE HCL 0.1 MG TABLET PO SCH (22:00)
[2016-08-28] MEDS: VENLAFAXINE HCL 75 MG CAP.SR.24H PO SCH (22:45)
[2016-08-28] MEDS: ATORVASTATIN CALCIUM 40 MG TABLET PO SCH (22:46)
[2016-08-28] MEDS: QUETIAPINE FUMARATE 100 MG TABLET PO SCH (22:46)
[2016-08-28] MEDS: METOPROLOL TARTRATE 25 MG TABLET PO SCH (22:46)
[2016-08-28] MEDS: CLONIDINE HCL 0.1 MG TABLET PO SCH (22:47)
[2016-08-28 23:14] LABS: CREATINE KINASE MB 2.36 ng/mL (<4.55); TROPONIN I 0.026 ng/mL
[2016-08-29] MEDS: ACETAMINOPHEN 325 MG TABLET PO PRN (03:45)
[2016-08-29 05:24] LABS: ABSOLUTE BASOPHILS # (AUTO) 0.1 10^3/uL (0.0-0.2); ABSOLUTE EOSINOPHILS # (AUTO) 0.2 10^3/uL (0.0-0.6); ABSOLUTE MONOCYTES (AUTO) 0.5 10^3/uL (0.1-1.4); ABSOLUTE NEUT (AUTO) 5.7 10^3/uL (1.7-8.2); BASOPHILS % (AUTO) 0.7 % (0-2); HEMATOCRIT 43.6 % (36.0-47.0); HGB HCT DIFFERENCE -1.3; LYMPHOCYTES % (AUTO) 23.9 % (13-45); MEAN CORPUSCULAR HEMOGLOBIN 28.9 pg (27.0-33.4); MEAN CORPUSCULAR HGB CONC 32.4 g/dL (32.0-36.0); MEAN CORPUSCULAR VOLUME 89 fl (80-97); MONOCYTES % (AUTO) 6.2 % (3-13); RED BLOOD COUNT 4.89 10^6/uL (3.72-5.28); RED CELL DISTRIBUTION WIDTH 13.2 % (11.5-14.0); SEGMENTED NEUTROPHILS % (AUTO) 67.2 % (42-78); WHITE BLOOD COUNT 8.5 10^3/uL (4.0-10.5)
[2016-08-29] MEDS: LANSOPRAZOLE 15 MG TAB.RAP.DR PO SCH ×2 (05:25→18:04)
[2016-08-29 05:26] LABS: ANION GAP 11 (5-19); BLOOD UREA NITROGEN 19 mg/dL (7-20); CALCIUM 8.8 mg/dL (8.4-10.2); CARBON DIOXIDE 22 mmol/L (22-30); CHLORIDE 103 mmol/L (98-107); CREATINE KINASE 45 U/L (30-135); CREATININE RESULT 1.39 mg/dL (0.52-1.25); GLUCOSE 152 mg/dL (75-110); HEMOGLOBIN 14.1 g/dL (12.0-15.5); POTASSIUM 3.6 mmol/L (3.6-5.0); SODIUM 135.5 mmol/L (137-145)
[2016-08-29 05:38] LABS: TROPONIN I 0.021 ng/mL
[2016-08-29] MEDS: IPRATROPIUM/ALBUTEROL 0.5-2.5 MG/3 ML AMPUL NEB SCH ×3 (08:44→19:39)
[2016-08-29] MEDS: ASPIRIN 81 MG TABLET, ENT COATED PO SCH (09:14)
[2016-08-29] MEDS: CLOPIDOGREL BISULFATE 75 MG TABLET PO SCH (09:14)
[2016-08-29] MEDS: CLONIDINE HCL 0.1 MG TABLET PO SCH ×2 (09:15→21:59)
[2016-08-29] MEDS: METOPROLOL TARTRATE 25 MG TABLET PO SCH ×2 (09:15→21:59)
[2016-08-29] MEDS: ARIPIPRAZOLE 5 MG TABLET PO SCH (09:15)
[2016-08-29] MEDS: ENOXAPARIN SODIUM INJ 40 MG/0.4 ML DISP.SYRIN SUBCUT SCH (09:16)
[2016-08-29] MEDS: THYROID (PORK) 60 MG TABLET PO SCH (09:46)
[2016-08-29] MEDS: VENLAFAXINE HCL 75 MG CAP.SR.24H PO SCH ×2 (09:46→21:59)
[2016-08-29] MEDS: LIOTHYRONINE SODIUM 25 MCG TABLET PO SCH (09:47)
[2016-08-29] MEDS ORDERED: DIGOXIN INJ 0.5 MG/2 ML AMPULE IV ONE (10:30)
[2016-08-29] MEDS: HYDRALAZINE HCL INJ/PF 20 MG/1 ML SDV IV PRN (12:14)
[2016-08-29] MEDS: CEFTRIAXONE 1 GM/D5W RTU 50 ML IV SCH (13:25)
[2016-08-29] MEDS: MONTELUKAST SODIUM 10 MG TABLET PO SCH (18:04)
[2016-08-29] MEDS: ATORVASTATIN CALCIUM 40 MG TABLET PO SCH (21:58)
[2016-08-29] MEDS: QUETIAPINE FUMARATE 100 MG TABLET PO SCH (21:59)
--- NOTE | 2016-08-29 22:09 | PDOC H&P ---
History of Present Illness Admission Date/PCP: 08/28/16 16:34 MARU WOODALL MD Patient complains of: Headache and elevated blood pressure History of Present Illness: CRISTIANE LOVE is a 61 year old female known to Dr Maru Woodall practice who was directed to come to the ED due to significantly elevated blood pressure. Patient reported associated headache. She denied any associated chest pain, palpitation, nausea, vomiting, dizziness or vertigo. She reported compliance with her medication and dietary restrictions. She wa seen earlier in the day at Dr Woodall's office and administered Clonidine before leaving the office. She was initially managed with Clonidine and IV Labetalol while in the ED. Due to persistent of severely elevated blood pressure she was advised hospitalization for further evaluation and management. Patient did reported that she has a court date on 08/31/16 regarding assault case. She denied any alcohol or illicit drug usage. Past Medical History Cardiac Medical History: Reports: Coronary Artery Disease, Hyperlipidema, Hypertension, Pulmonary Embolism Pulmonary Medical History: Reports: Asthma, Chronic Obstructive Pulmonary Disease (COPD) Denies: Tuberculosis Endocrine Medical History: Reports: Diabetes Mellitus Type 2 Psychiatric Medical History: Reports: Bipolar Disorder, Depression Past Surgical History Past Surgical History: Reports: Appendectomy, Cardiac Catheterization - stent x 1, Cholecystectomy, Mastectomy - left side, pt states many years ago Social History Smoking Status: Current Every Day Smoker Cigarettes Packs Per Day: 0.2 Number of Years Smokin Frequency of Alcohol Use: None Hx Recreational Drug Use: No Drugs: None Hx Prescription Drug Abuse: No - Advance Directive Resuscitation Status: Full Code Family History Family History: Reviewed & Not Pertinent Parental Family History Reviewed: Yes Children Family History Reviewed: Yes Sibling(s) Family History Reviewed.: Yes Medication/Allergy Home Medications: Aripiprazole [Abilify 30 mg Tablet] 30 mg PO DAILY 08/28/16 Clopidogrel Bisulfate [Plavix 75 mg Tablet] 75 mg PO DAILY 08/28/16 Fenofibrate 160 mg PO DAILY 08/28/16 Hydroxyzine HCl [Atarax 25 mg Tablet] 25 mg PO DAILY 08/28/16 Levocetirizine Dihydrochloride [Xyzal] 5 mg PO QPM 08/28/16 Lidocaine [Lidoderm 5% (700 mg) Transdermal Patch] 1 patch TOP DAILY 08/28/16 Liothyronine Sodium [Cytomel 25 Mcg Tablet] 25 mcg PO QAM 06/30/17 Metoprolol Tartrate [Lopressor 25 mg Tablet] 25 mg PO Q12 08/28/16 Mirtazapine [Remeron] 30 mg PO QHS 08/28/16 Quetiapine Fumarate [Seroquel 100 mg Tablet] 100 mg PO QHS 08/28/16 Rosuvastatin Calcium [Crestor] 40 mg PO DAILY 08/28/16 Thyroid (Pork) [[place] Thyroid 60 mg Tablet] 60 mg PO DAILY 08/28/16 Venlafaxine HCl [Effexor Xr] 150 mg PO BID 08/28/16 Allergies/Adverse Reactions: codeine Allergy (Verified 08/28/16 14:23) morphine [Morphine] Allergy (Verified 08/28/16 11:42) nalbuphine [From Nubain] Allergy (Verified 08/28/16 11:42) plastic tape Allergy (Uncoded 08/28/16 11:42) Review of Systems Constitutional: ABSENT: chills, fever(s), headache(s), weight gain, weight loss Eyes: ABSENT: visual disturbances Ears: ABSENT: hearing changes Nose, Mouth, and Throat: PRESENT: headache(s). ABSENT: as per HPI, mouth pain, sore throat, vertigo, other Cardiovascular: ABSENT: chest pain, dyspnea on exertion, edema, orthropnea, palpitations Respiratory: ABSENT: cough, hemoptysis Gastrointestinal: ABSENT: abdominal pain, constipation, diarrhea, hematemesis, hematochezia, nausea, vomiting Genitourinary: ABSENT: dysuria, hematuria Musculoskeletal: ABSENT: joint swelling Integumentary: PRESENT: lesions - superficial cuts on extremities. ABSENT: rash , wounds Neurological: ABSENT: abnormal gait, abnormal speech, confusion, dizziness, focal weakness, syncope Psychiatric: ABSENT: anxiety, depression, homidical ideation, suicidal ideation Endocrine: ABSENT: cold intolerance, heat intolerance, polydipsia, polyuria Hematologic/Lymphatic: ABSENT: easy bleeding, easy bruising, lymphadenopathy Allergic/Immunologic: ABSENT: as per HPI, seasonal rhinorrhea, other Physical Exam Vital Signs: Temp Pulse Resp BP Pulse Ox 97.6 F 77 20 154/70 H 95 08/29/16 19:30 08/29/16 19:39 08/29/16 19:39 08/29/16 19:30 08/29/16 19:39 Intake & Output 08/28/16 08/29/16 08/30/16 06:59 06:59 06:59 Intake Total 651 Output Total 900 2900 Balance -900 -2249 Weight 74.6 kg General appearance: PRESENT: no acute distress, well-developed, well-nourished Head exam: PRESENT: atraumatic, normocephalic Eye exam: PRESENT: conjunctiva pink, EOMI, PERRLA. ABSENT: scleral icterus Ear exam: PRESENT: normal external ear exam Mouth exam: PRESENT: moist, tongue midline Teeth exam: PRESENT: poor dentation Throat exam: ABSENT: post pharyngeal erythema, tonsillar erythema, tonsillar exudate, tonsillogmegaly, other Neck exam: PRESENT: full ROM. ABSENT: carotid bruit, JVD, lymphadenopathy, thyromegaly Respiratory exam: PRESENT: clear to auscultation nuvia Cardiovascular exam: PRESENT: RRR. ABSENT: diastolic murmur, rubs, systolic murmur Pulses: PRESENT: normal dorsalis pedis pul, +2 pedal pulses bilateral Vascular exam: PRESENT: normal capillary refill GI/Abdominal exam: PRESENT: normal bowel sounds, soft. ABSENT: distended, guarding, mass, organolmegaly, rebound, tenderness Rectal exam: PRESENT: deferred Extremities exam: ABSENT: pedal edema Musculoskeletal exam: PRESENT: deformity - related to joint involvement with arthritis Neurological exam: PRESENT: alert, awake, oriented to person, oriented to place , oriented to time, oriented to situation, CN II-XII grossly intact. ABSENT: motor sensory deficit Psychiatric exam: PRESENT: appropriate affect, normal mood. ABSENT: homicidal ideation, suicidal ideation Skin exam: PRESENT: dry, intact, warm, other - multiple superficial cuts on extremities. ABSENT: cyanosis, rash Results Laboratory Results: 08/29/16 05:00 08/29/16 05:00 08/29/16 08/29/16 05:00 05:00 WBC 8.5 RBC 4.89 Hgb 14.1 D Hct 43.6 MCV 89 MCH 28.9 MCHC 32.4 RDW 13.2 Plt Count 249 Seg Neutrophils % 67.2 Lymphocytes % 23.9 Monocytes % 6.2 Eosinophils % 2.0 Basophils % 0.7 Absolute Neutrophils 5.7 Absolute Lymphocytes 2.0 Absolute Monocytes 0.5 Absolute Eosinophils 0.2 Absolute Basophils 0.1 Sodium 135.5 L Potassium 3.6 Chloride 103 Carbon Dioxide 22 Anion Gap 11 BUN 19 Creatinine 1.39 H Est GFR ( Amer) 47 L Est GFR (Non-Af Amer) 39 L Glucose 152 H Calcium 8.8 08/28/16 08/28/16 08/28/16 16:35 16:35 22:30 Creatine Kinase 50 44 CK-MB (CK-2) 2.56 Troponin I 0.032 08/28/16 08/29/16 08/29/16 22:30 05:00 05:00 Creatine Kinase 45 CK-MB (CK-2) 2.36 2.00 Troponin I 0.026 0.021 Impressions: Chest X-Ray 08/28/16 11:27 IMPRESSION: Chronic lung changes with no acute cardiopulmonary disease. Head CT 08/28/16 11:27 IMPRESSION: Right maxillary sinus disease with no acute intracranial pathology. Brain MRI with MRA 08/28/16 13:34 IMPRESSION: NORMAL MRA OF THE [place] [facility] [place]. Head MRI 08/28/16 13:34 IMPRESSION: Mild right maxillary sinus disease with no acute intracranial pathology. Assessment & Plan - Diagnosis (1) Hypertensive emergency Is this a current diagnosis for this admission?: YesPlan: See admitting physician orders. (2) HTN (hypertension) Qualifiers: Hypertension type: essential hypertension Qualified Code(s): I10 - Essential (primary) hypertension Is this a current diagnosis for this admission?: YesPlan: See admitting physician orders. (3) CAD (coronary artery disease) Qualifiers: Coronary Disease-Associated Artery/Lesion type: [place] artery Associated angina: without angina Is this a current diagnosis for this admission?: YesPlan: See admitting physician orders. (4) HLD (hyperlipidemia) Qualifiers: Hyperlipidemia type: pure hypercholesterolemia Qualified Code(s): E78.00 - Pure hypercholesterolemia, unspecified; E78.0 - Pure hypercholesterolemia (5) Hypothyroidism Qualifiers: Hypothyroidism type: unspecified Qualified Code(s): E03.9 - Hypothyroidism, unspecified Is this a current diagnosis for this admission?: YesPlan: See admitting physician orders. (6) Depression Is this a current diagnosis for this admission?: YesPlan: See admitting physician orders. (7) Cigarette smoker Is this a current diagnosis for this admission?: YesPlan: See admitting physician orders. (8) Bipolar disorder Qualifiers: Active/Remission status: currently active Is this a current diagnosis for this admission?: YesPlan: See admitting physician orders. - Time Time Spent: Greater than 70 Minutes Medications reviewed and adjusted accordingly: Yes Anticipated discharge: Home Within: Other - Inpatient Certification Medical Necessity: Need Close Monitoring Due to Risk of Patient Decompensation, Need For IV Fluids, Need For Continuous Telemetry Monitoring, Need for Nebulizer Therapy and Monitoring of Response, Need for IV Antibiotics, Risk of Complication if Not Cared For in Hospital Post Hospital Care: D/C Sales Representative Printing Documentation - Plan Summary Plan Summary: See admitting physician orders.
[2016-08-29] MEDS ORDERED: VALSARTAN 160 MG TABLET PO ONE (22:30)
[2016-08-30 05:19] LABS: APPEARANCE,URINE CLEAR; BILIRUBIN,URINE NEGATIVE (NEGATIVE); GLUCOSE, URINE 50 mg/dL (NEGATIVE); KETONES,URINE NEGATIVE (NEGATIVE); LEUKOCYTE ESTERASE,URINE NEGATIVE (NEGATIVE); NITRITE,URINE NEGATIVE (NEGATIVE); PROTEIN,URINE >=500 mg/dL (NEGATIVE); URINE SPECIFIC GRAVITY 1.005; UROBILINOGEN,URINE NEGATIVE mg/dL (<2.0)
[2016-08-30] MEDS: LANSOPRAZOLE 15 MG TAB.RAP.DR PO SCH ×2 (05:42→16:18)
[2016-08-30 06:44] LABS: ABSOLUTE BASOPHILS # (AUTO) 0.1 10^3/uL (0.0-0.2); ABSOLUTE EOSINOPHILS # (AUTO) 0.1 10^3/uL (0.0-0.6); ABSOLUTE LYMPHOCYTES (AUTO) 1.9 10^3/uL (0.5-4.7); ABSOLUTE MONOCYTES (AUTO) 0.4 10^3/uL (0.1-1.4); ABSOLUTE NEUT (AUTO) 5.9 10^3/uL (1.7-8.2); BASOPHILS % (AUTO) 1.4 % (0-2); EOSINOPHILS % (AUTO) 1.6 % (0-6); HEMATOCRIT 46.4 % (36.0-47.0); HGB HCT DIFFERENCE -1.4; LYMPHOCYTES % (AUTO) 22.5 % (13-45); MEAN CORPUSCULAR HEMOGLOBIN 28.7 pg (27.0-33.4); MEAN CORPUSCULAR HGB CONC 32.4 g/dL (32.0-36.0); MEAN CORPUSCULAR VOLUME 89 fl (80-97); MONOCYTES % (AUTO) 4.6 % (3-13); RED BLOOD COUNT 5.23 10^6/uL (3.72-5.28); RED CELL DISTRIBUTION WIDTH 13.5 % (11.5-14.0); SEGMENTED NEUTROPHILS % (AUTO) 69.9 % (42-78); WHITE BLOOD COUNT 8.4 10^3/uL (4.0-10.5)
[2016-08-30 06:59] LABS: ANION GAP 9 (5-19); BLOOD UREA NITROGEN 23 mg/dL (7-20); CARBON DIOXIDE 25 mmol/L (22-30); CHLORIDE 104 mmol/L (98-107); CREATININE RESULT 1.53 mg/dL (0.52-1.25); GLUCOSE 167 mg/dL (75-110); POTASSIUM 3.4 mmol/L (3.6-5.0); SODIUM 137.9 mmol/L (137-145)
[2016-08-30] MEDS: IPRATROPIUM/ALBUTEROL 0.5-2.5 MG/3 ML AMPUL NEB SCH ×2 (08:14→13:58)
[2016-08-30] MEDS: ARIPIPRAZOLE 5 MG TABLET PO SCH (08:36)
[2016-08-30] MEDS: CLOPIDOGREL BISULFATE 75 MG TABLET PO SCH (09:33)
[2016-08-30] MEDS: CLONIDINE HCL 0.1 MG TABLET PO SCH (09:33)
[2016-08-30] MEDS: THYROID (PORK) 60 MG TABLET PO SCH (09:33)
[2016-08-30] MEDS: ASPIRIN 81 MG TABLET, ENT COATED PO SCH (09:35)
[2016-08-30] MEDS: METOPROLOL TARTRATE 25 MG TABLET PO SCH (09:35)
[2016-08-30] MEDS: VENLAFAXINE HCL 75 MG CAP.SR.24H PO SCH (09:36)
[2016-08-30] MEDS: LIOTHYRONINE SODIUM 25 MCG TABLET PO SCH (09:37)
[2016-08-30] MEDS: ENOXAPARIN SODIUM INJ 40 MG/0.4 ML DISP.SYRIN SUBCUT SCH (09:43)
[2016-08-30] MEDS ORDERED: VALSARTAN 160 MG TABLET PO SCH ×3 (10:00→22:00)
--- NOTE | 2016-08-30 13:44 | PDOC PROGRESS REPORT ---
Subjective Progress Note for:: 08/30/16 Subjective:: Patient denied any chest pain or difficulty with breathing. No nausea or vomiting. No abdominal pain. Tolerating oral feeding. Blood pressure is showing some improvement but remain elevated. Physical Exam Vital Signs: Temp Pulse Resp BP Pulse Ox 97.9 F 61 18 142/64 H 93 08/30/16 12:12 08/30/16 12:12 08/30/16 12:12 08/30/16 12:12 08/30/16 12:12 Intake & Output 08/29/16 08/30/16 08/31/16 06:59 06:59 06:59 Intake Total 651 1488 Output Total 900 4400 Balance -900 -8092 1488 Weight 74.6 kg 74.5 kg General appearance: PRESENT: no acute distress, cooperative Head exam: PRESENT: atraumatic, normocephalic Eye exam: PRESENT: conjunctiva pink, EOMI, PERRLA. ABSENT: scleral icterus Respiratory exam: PRESENT: clear to auscultation nuvia Cardiovascular exam: PRESENT: RRR. ABSENT: diastolic murmur, rubs, systolic murmur GI/Abdominal exam: PRESENT: normal bowel sounds, soft. ABSENT: distended, guarding, mass, organolmegaly, rebound, tenderness Extremities exam: ABSENT: pedal edema Musculoskeletal exam: PRESENT: deformity - related to multiple joints involvement with arthritis Neurological exam: PRESENT: alert, awake, oriented to person, oriented to place , oriented to time, oriented to situation, CN II-XII grossly intact. ABSENT: motor sensory deficit Psychiatric exam: PRESENT: appropriate affect, normal mood. ABSENT: homicidal ideation, suicidal ideation Skin exam: PRESENT: dry, intact, warm. ABSENT: cyanosis, rash Results Laboratory Results: 08/30/16 05:41 08/30/16 05:41 08/30/16 08/30/16 08/30/16 04:45 05:41 05:41 WBC 8.4 RBC 5.23 Hgb 15.0 Hct 46.4 MCV 89 MCH 28.7 MCHC 32.4 RDW 13.5 Plt Count 316 Seg Neutrophils % 69.9 Lymphocytes % 22.5 Monocytes % 4.6 Eosinophils % 1.6 Basophils % 1.4 Absolute Neutrophils 5.9 Absolute Lymphocytes 1.9 Absolute Monocytes 0.4 Absolute Eosinophils 0.1 Absolute Basophils 0.1 Sodium 137.9 Potassium 3.4 L Chloride 104 Carbon Dioxide 25 Anion Gap 9 BUN 23 H Creatinine 1.53 H Est GFR ( Amer) 42 L Est GFR (Non-Af Amer) 35 L Glucose 167 H Calcium 9.0 Urine Color STRAW Urine Appearance CLEAR Urine pH 7.0 Ur Specific [place] 1.005 Urine Protein >=500 H Urine Glucose (UA) 50 H Urine Ketones NEGATIVE Urine Blood NEGATIVE Urine Nitrite NEGATIVE Ur Leukocyte Esterase NEGATIVE Urine WBC (Auto) 0 Urine RBC (Auto) 0 08/29/16 05:55 Clean Catch Midstream Urine Culture - Final Mixed Urogenital Agueda 08/28/16 08/28/16 08/28/16 16:35 16:35 22:30 Creatine Kinase 50 44 CK-MB (CK-2) 2.56 Troponin I 0.032 08/28/16 08/29/16 08/29/16 22:30 05:00 05:00 Creatine Kinase 45 CK-MB (CK-2) 2.36 2.00 Troponin I 0.026 0.021 Impressions: Chest X-Ray 08/28/16 11:27 IMPRESSION: Chronic lung changes with no acute cardiopulmonary disease. Head CT 08/28/16 11:27 IMPRESSION: Right maxillary sinus disease with no acute intracranial pathology. Brain MRI with MRA 08/28/16 13:34 IMPRESSION: NORMAL MRA OF THE [place]. Head MRI 08/28/16 13:34 IMPRESSION: Mild right maxillary sinus disease with no acute intracranial pathology. Assessment & Plan - Diagnosis (1) Hypertensive emergency Is this a current diagnosis for this admission?: YesPlan: Improving. See attending physician orders. (2) HTN (hypertension) Qualifiers: Hypertension type: essential hypertension Qualified Code(s): I10 - Essential (primary) hypertension Is this a current diagnosis for this admission?: YesPlan: Improving. See attending physician orders. (3) CAD (coronary artery disease) Qualifiers: Coronary Disease-Associated Artery/Lesion type: [place] artery Associated angina: without angina Is this a current diagnosis for this admission?: YesPlan: See attending physician orders. (4) HLD (hyperlipidemia) Qualifiers: Hyperlipidemia type: pure hypercholesterolemia Qualified Code(s): E78.00 - Pure hypercholesterolemia, unspecified; E78.0 - Pure hypercholesterolemia Is this a current diagnosis for this admission?: YesPlan: See attending physician orders. (5) Hypothyroidism Qualifiers: Hypothyroidism type: unspecified Qualified Code(s): E03.9 - Hypothyroidism, unspecified Is this a current diagnosis for this admission?: YesPlan: See attending physician orders. (6) Depression Is this a current diagnosis for this admission?: YesPlan: See attending physician orders. (7) Cigarette smoker Is this a current diagnosis for this admission?: YesPlan: See attending physician orders. (8) Bipolar disorder Qualifiers: Active/Remission status: currently active Is this a current diagnosis for this admission?: YesPlan: See attending physician orders. - Time Time Spent with patient: 25-34 minutes Medications reviewed and adjusted accordingly: Yes Anticipated discharge: Home Within: Other - Inpatient Certification Medical Necessity: Need Close Monitoring Due to Risk of Patient Decompensation, Need For Continuous Telemetry Monitoring, Risk of Complication if Not Cared For in Hospital Post Hospital Care: D/C Paper Feeder Documentation - Plan Summary Plan Summary: See attending physician orders. I will issue her a letter of exempt from court appearance tomorrow.
[2016-08-30] MEDS ORDERED: IPRATROPIUM/ALBUTEROL 0.5-2.5 MG/3 ML AMPUL NEB PRN (14:15)
[2016-08-30] MEDS: CEFTRIAXONE 1 GM/D5W RTU 50 ML IV SCH (14:44)
[2016-08-30] MEDS: POTASSIUM CHLORIDE 10 MEQ TABLET.SA PO SCH ×2 (14:54→18:29)
[2016-08-30 16:00] LABS: APPEARANCE,URINE CLEAR; BILIRUBIN,URINE NEGATIVE (NEGATIVE); GLUCOSE, URINE NEGATIVE (NEGATIVE); KETONES,URINE NEGATIVE (NEGATIVE); LEUKOCYTE ESTERASE,URINE NEGATIVE (NEGATIVE); NITRITE,URINE NEGATIVE (NEGATIVE); PROTEIN,URINE >=500 mg/dL (NEGATIVE); URINE SPECIFIC GRAVITY 1.002; UROBILINOGEN,URINE NEGATIVE mg/dL (<2.0)
[2016-08-30] MEDS: MONTELUKAST SODIUM 10 MG TABLET PO SCH (17:07)
[2016-08-30] MEDS: HYDRALAZINE HCL INJ/PF 20 MG/1 ML SDV IV PRN (21:34)
[2016-08-31] MEDS: VENLAFAXINE HCL 75 MG CAP.SR.24H PO SCH ×3 (01:13→21:27)
[2016-08-31] MEDS: QUETIAPINE FUMARATE 100 MG TABLET PO SCH ×2 (01:13→21:27)
[2016-08-31] MEDS: ATORVASTATIN CALCIUM 40 MG TABLET PO SCH ×2 (01:13→21:27)
[2016-08-31] MEDS: METOPROLOL TARTRATE 25 MG TABLET PO SCH ×3 (01:14→21:27)
--- NOTE | 2016-08-31 01:47 | RADIOLOGY REPORT (SQ) ---
EXAM DESCRIPTION: U/S RETROPERITON (RENAL/AORTA) COMPLETED DATE/TIME: 08/31/2016 12:59 am REASON FOR STUDY: Hypertensive urgency with renal impairment COMPARISON: None. TECHNIQUE: Dynamic and static grayscale images acquired of the kidneys and bladder and recorded on P ACS. Additional selected color Doppler and spectral images recorded. LIMITATIONS: None. FINDINGS: RIGHT KIDNEY: Normal size. 10 cm. Echogenic. No solid or suspicious masses. No hydronep hrosis. No calcifications. LEFT KIDNEY: Normal size. 10 cm. Echogenic. No solid or suspicious masses. No hydronephrosis. No calcifications. BLADDER: No masses. Ureteral jet flow not demonstrated. OTHER FINDINGS: No other significant finding. IMPRESSION: No acute findings. Chronic medicorenal disease pattern. TECHNICAL DOCUMENTATION: JOB ID: [id number] [employer]- All Rights Reserved
--- NOTE | 2016-08-31 03:53 | RADIOLOGY REPORT (SQ) ---
EXAM DESCRIPTION: U/S LTD DUPLEX ART/DARRICK FLOW COMPLETED DATE/TIME: 08/31/2016 1:08 am REASON FOR STUDY: renal artery, hypertensive crisis COMPARISON: None. TECHNIQUE: Realtime and static grayscale images acquired. Selected color Doppler, velocities and spe ctral images recorded. LIMITATIONS: None. FINDINGS: RIGHT KIDNEY: RENAL ARTERY VELOCITIES: 65 cm/sec. Segmental artery velocity 25 cm/sec. RENAL VEIN: Color doppler flow present, patent. VELOCITY RATIO: 2.1. Normal waveforms. KIDNEY: 10.1 cm. No significant pathology. LEFT KIDNEY: RENAL ARTERY VELOCITIES: 83 cm/sec. Segmental artery velocity 50 cm/sec. RENAL VEIN: Color doppler flow present, patent. VELOCITY RATIO: 2.7. Normal waveforms. KIDNEY: 10.0 cm. No significant pathology. BLADDER: Normal. OTHER: No other significant finding. IMPRESSION: NO DOPPLER EVIDENCE OF HEMODYNAMICALLY SIGNIFICANT RENAL ARTERY STENOSIS. COMMENT: NORMAL RENAL ARTERY/AORTA VELOCITY RATIO IS LESS THAN OR EQUAL TO 3.5. TECHNICAL DOCUMENTATION: JOB ID: [id number] [employer]- All Rights Reserved
[2016-08-31] MEDS: ACETAMINOPHEN 325 MG TABLET PO PRN (05:45)
[2016-08-31] MEDS: LANSOPRAZOLE 15 MG TAB.RAP.DR PO SCH ×2 (05:46→16:10)
[2016-08-31 05:58] LABS: ABSOLUTE BASOPHILS # (AUTO) 0.1 10^3/uL (0.0-0.2); ABSOLUTE EOSINOPHILS # (AUTO) 0.1 10^3/uL (0.0-0.6); ABSOLUTE LYMPHOCYTES (AUTO) 2.1 10^3/uL (0.5-4.7); ABSOLUTE MONOCYTES (AUTO) 0.5 10^3/uL (0.1-1.4); ABSOLUTE NEUT (AUTO) 6.9 10^3/uL (1.7-8.2); EOSINOPHILS % (AUTO) 1.3 % (0-6); HEMATOCRIT 46.2 % (36.0-47.0); HEMOGLOBIN 15.5 g/dL (12.0-15.5); HGB HCT DIFFERENCE 0.3; LYMPHOCYTES % (AUTO) 22.1 % (13-45); MEAN CORPUSCULAR HEMOGLOBIN 29.5 pg (27.0-33.4); MEAN CORPUSCULAR HGB CONC 33.6 g/dL (32.0-36.0); MEAN CORPUSCULAR VOLUME 88 fl (80-97); MONOCYTES % (AUTO) 4.9 % (3-13); RED BLOOD COUNT 5.26 10^6/uL (3.72-5.28); RED CELL DISTRIBUTION WIDTH 13.6 % (11.5-14.0); SEGMENTED NEUTROPHILS % (AUTO) 70.7 % (42-78); WHITE BLOOD COUNT 9.7 10^3/uL (4.0-10.5)
[2016-08-31 06:18] LABS: ANION GAP 11 (5-19); BLOOD UREA NITROGEN 29 mg/dL (7-20); CALCIUM 9.2 mg/dL (8.4-10.2); CARBON DIOXIDE 23 mmol/L (22-30); CHLORIDE 104 mmol/L (98-107); CREATININE RESULT 1.55 mg/dL (0.52-1.25); GLUCOSE 157 mg/dL (75-110); SODIUM 137.5 mmol/L (137-145)
[2016-08-31] MEDS: ARIPIPRAZOLE 5 MG TABLET PO SCH (07:41)
--- NOTE | 2016-08-31 08:50 | PDOC PROGRESS REPORT ---
Subjective Progress Note for:: 08/31/16 Subjective:: Patient denied any chest pain or difficulty with breathing. No nausea or vomiting. No abdominal pain. Tolerating oral feeding. Blood pressure is showing some improvement but remain elevated with worsening renal indices. Physical Exam Vital Signs: Temp Pulse Resp BP Pulse Ox 97.1 F 71 20 146/87 H 95 08/31/16 07:26 08/31/16 07:26 08/31/16 07:26 08/31/16 07:26 08/31/16 07:26 Intake & Output 08/30/16 08/31/16 09/01/16 06:59 06:59 06:59 Intake Total 651 2457 Output Total 4400 2600 Balance -3749 -143 Weight 74.5 kg 74.5 kg Physical Exam: General appearance: PRESENT: no acute distress, cooperative Head exam: PRESENT: atraumatic, normocephalic Eye exam: PRESENT: conjunctiva pink, EOMI, PERRLA. ABSENT: scleral icterus Respiratory exam: PRESENT: clear to auscultation nuvia Cardiovascular exam: PRESENT: RRR. ABSENT: diastolic murmur, rubs, systolic murmur GI/Abdominal exam: PRESENT: normal bowel sounds, soft. ABSENT: distended, guarding, mass, organomegaly, rebound, tenderness Extremities exam: ABSENT: pedal edema Musculoskeletal exam: PRESENT: deformity - related to multiple joints involvement with arthritis Neurological exam: PRESENT: alert, awake, oriented to person, oriented to place , oriented to time, oriented to situation, CN II-XII grossly intact. ABSENT: motor sensory deficit Psychiatric exam: PRESENT: appropriate affect, normal mood. ABSENT: homicidal ideation, suicidal ideation Skin exam: PRESENT: dry, intact, warm. ABSENT: cyanosis, rash Results Laboratory Results: 08/31/16 05:42 08/31/16 05:42 08/30/16 08/31/16 08/31/16 15:40 05:42 05:42 WBC 9.7 RBC 5.26 Hgb 15.5 Hct 46.2 MCV 88 MCH 29.5 MCHC 33.6 RDW 13.6 Plt Count 343 Seg Neutrophils % 70.7 Lymphocytes % 22.1 Monocytes % 4.9 Eosinophils % 1.3 Basophils % 1.0 Absolute Neutrophils 6.9 Absolute Lymphocytes 2.1 Absolute Monocytes 0.5 Absolute Eosinophils 0.1 Absolute Basophils 0.1 Sodium 137.5 Potassium 4.0 Chloride 104 Carbon Dioxide 23 Anion Gap 11 BUN 29 H Creatinine 1.55 H Est GFR ( Amer) 41 L Est GFR (Non-Af Amer) 34 L Glucose 157 H Calcium 9.2 Urine Color STRAW Urine Appearance CLEAR Urine pH 6.0 Ur Specific [place] 1.002 Urine Protein >=500 H Urine Glucose (UA) NEGATIVE Urine Ketones NEGATIVE Urine Blood NEGATIVE Urine Nitrite NEGATIVE Ur Leukocyte Esterase NEGATIVE Urine WBC (Auto) 1 Urine RBC (Auto) 1 08/29/16 05:55 Clean Catch Midstream Urine Culture - Final Mixed Urogenital Agueda 08/28/16 08/28/16 08/28/16 16:35 16:35 22:30 Creatine Kinase 50 44 CK-MB (CK-2) 2.56 Troponin I 0.032 08/28/16 08/29/16 08/29/16 22:30 05:00 05:00 Creatine Kinase 45 CK-MB (CK-2) 2.36 2.00 Troponin I 0.026 0.021 Impressions: Chest X-Ray 08/28/16 11:27 IMPRESSION: Chronic lung changes with no acute cardiopulmonary disease. Head CT 08/28/16 11:27 IMPRESSION: Right maxillary sinus disease with no acute intracranial pathology. Brain MRI with MRA 08/28/16 13:34 IMPRESSION: NORMAL MRA OF THE [place] [facility] [place]. Head MRI 08/28/16 13:34 IMPRESSION: Mild right maxillary sinus disease with no acute intracranial pathology. Renal Ultrasound 08/30/16 00:00 IMPRESSION: No acute findings. Chronic medicorenal disease pattern. Vascular Ultrasound 08/30/16 15:29 IMPRESSION: NO DOPPLER EVIDENCE OF HEMODYNAMICALLY SIGNIFICANT RENAL ARTERY STENOSIS. Assessment & Plan - Diagnosis (1) Hypertensive emergency Is this a current diagnosis for this admission?: YesPlan: Improving. D/C Valsartan usage due to worsening renal indices. Start on Adalact CC 60 mg po bid. See attending physician orders. (2) HTN (hypertension) Qualifiers: Hypertension type: essential hypertension Qualified Code(s): I10 - Essential (primary) hypertension Is this a current diagnosis for this admission?: YesPlan: Improving but with worsening renal indices. Renal ultrasound suggested medico- renal changes and no hemodynamic abnormality with regard to arterial evaluation. See attending physician orders. (3) CAD (coronary artery disease) Qualifiers: Coronary Disease-Associated Artery/Lesion type: [place] artery Associated angina: without angina Is this a current diagnosis for this admission?: Yes (4) HLD (hyperlipidemia) Qualifiers: Hyperlipidemia type: pure hypercholesterolemia Qualified Code(s): E78.00 - Pure hypercholesterolemia, unspecified; E78.0 - Pure hypercholesterolemia Is this a current diagnosis for this admission?: Yes (5) Hypothyroidism Qualifiers: Hypothyroidism type: unspecified Qualified Code(s): E03.9 - Hypothyroidism, unspecified Is this a current diagnosis for this admission?: Yes (6) Depression Is this a current diagnosis for this admission?: Yes (7) Cigarette smoker Is this a current diagnosis for this admission?: Yes (8) Bipolar disorder Qualifiers: Active/Remission status: currently active Is this a current diagnosis for this admission?: Yes - Time Time Spent with patient: 25-34 minutes Medications reviewed and adjusted accordingly: Yes Anticipated discharge: Home Within: Other - Inpatient Certification Medical Necessity: Need Close Monitoring Due to Risk of Patient Decompensation, Need For Continuous Telemetry Monitoring, Risk of Complication if Not Cared For in Hospital Post Hospital Care: D/C Sheet Metal Fabricator Documentation - Plan Summary Plan Summary: See covering attending physician orders.
[2016-08-31] MEDS: ENOXAPARIN SODIUM INJ 40 MG/0.4 ML DISP.SYRIN SUBCUT SCH (09:42)
[2016-08-31] MEDS: CLOPIDOGREL BISULFATE 75 MG TABLET PO SCH (09:46)
[2016-08-31] MEDS: ASPIRIN 81 MG TABLET, ENT COATED PO SCH (09:46)
[2016-08-31] MEDS: THYROID (PORK) 60 MG TABLET PO SCH (09:47)
[2016-08-31] MEDS: LIOTHYRONINE SODIUM 25 MCG TABLET PO SCH (09:48)
[2016-08-31] MEDS: NIFEDIPINE 30 MG TAB.ER.24 PO SCH ×2 (09:49→21:27)
[2016-08-31] MEDS: CEFTRIAXONE 1 GM/D5W RTU 50 ML IV SCH (14:03)
[2016-08-31] MEDS: MONTELUKAST SODIUM 10 MG TABLET PO SCH (17:21)
[2016-08-31] MEDS ORDERED: LIDOCAINE 5% (700 MG) TRANSDERMAL ADH..PATCH TP ONE (18:30)
[2016-09-01] MEDS: LANSOPRAZOLE 15 MG TAB.RAP.DR PO SCH ×2 (05:15→16:02)
[2016-09-01] MEDS: ARIPIPRAZOLE 5 MG TABLET PO SCH (07:35)
[2016-09-01] MEDS: ENOXAPARIN SODIUM INJ 40 MG/0.4 ML DISP.SYRIN SUBCUT SCH (09:13)
[2016-09-01] MEDS: LIDOCAINE 5% (700 MG) TRANSDERMAL ADH..PATCH TP SCH (09:14)
[2016-09-01] MEDS: ASPIRIN 81 MG TABLET, ENT COATED PO SCH (09:15)
[2016-09-01] MEDS: METOPROLOL TARTRATE 25 MG TABLET PO SCH ×2 (09:15→21:08)
[2016-09-01] MEDS: CLOPIDOGREL BISULFATE 75 MG TABLET PO SCH (09:15)
[2016-09-01] MEDS: LIOTHYRONINE SODIUM 25 MCG TABLET PO SCH (09:16)
[2016-09-01] MEDS: NIFEDIPINE 30 MG TAB.ER.24 PO SCH ×2 (09:16→21:09)
[2016-09-01] MEDS: VENLAFAXINE HCL 75 MG CAP.SR.24H PO SCH ×2 (09:16→21:08)
[2016-09-01] MEDS: THYROID (PORK) 60 MG TABLET PO SCH (09:16)
[2016-09-01] MEDS: CEFTRIAXONE 1 GM/D5W RTU 50 ML IV SCH (13:42)
[2016-09-01] MEDS: MONTELUKAST SODIUM 10 MG TABLET PO SCH (17:17)
[2016-09-01] MEDS: QUETIAPINE FUMARATE 100 MG TABLET PO SCH (21:08)
[2016-09-01] MEDS: ATORVASTATIN CALCIUM 40 MG TABLET PO SCH (21:08)
--- NOTE | 2016-09-01 21:25 | PDOC PROGRESS REPORT ---
Subjective Progress Note for:: 09/01/16 Subjective:: Patient denied any chest pain or difficulty with breathing. No nausea or vomiting. No abdominal pain. Tolerating oral feeding. Blood pressure is showing some improvement. Physical Exam Vital Signs: Temp Pulse Resp BP Pulse Ox 97.4 F 71 20 146/77 H 97 09/01/16 19:40 09/01/16 19:40 09/01/16 19:40 09/01/16 19:40 09/01/16 19:40 Intake & Output 08/31/16 09/01/16 09/02/16 06:59 06:59 06:59 Intake Total 2457 2902 1874 Output Total 2600 400 Balance -143 2502 1874 Weight 74.5 kg 75.4 kg 75.4 kg Physical Exam: General appearance: PRESENT: no acute distress, cooperative Head exam: PRESENT: atraumatic, normocephalic Eye exam: PRESENT: conjunctiva pink, EOMI, PERRLA. ABSENT: scleral icterus Respiratory exam: PRESENT: clear to auscultation nuvia Cardiovascular exam: PRESENT: RRR. ABSENT: diastolic murmur, rubs, systolic murmur GI/Abdominal exam: PRESENT: normal bowel sounds, soft. ABSENT: distended, guarding, mass, organomegaly, rebound, tenderness Extremities exam: ABSENT: pedal edema Musculoskeletal exam: PRESENT: deformity - related to multiple joints involvement with arthritis Neurological exam: PRESENT: alert, awake, oriented to person, oriented to place , oriented to time, oriented to situation, CN II-XII grossly intact. ABSENT: motor sensory deficit Psychiatric exam: PRESENT: appropriate affect, normal mood. ABSENT: homicidal ideation, suicidal ideation Skin exam: PRESENT: dry, intact, warm. ABSENT: cyanosis, rash Results Laboratory Results: 08/31/16 05:42 08/31/16 05:42 08/28/16 08/28/16 08/28/16 16:35 16:35 22:30 Creatine Kinase 50 44 CK-MB (CK-2) 2.56 Troponin I 0.032 08/28/16 08/29/16 08/29/16 22:30 05:00 05:00 Creatine Kinase 45 CK-MB (CK-2) 2.36 2.00 Troponin I 0.026 0.021 Impressions: Chest X-Ray 08/28/16 11:27 IMPRESSION: Chronic lung changes with no acute cardiopulmonary disease. Head CT 08/28/16 11:27 IMPRESSION: Right maxillary sinus disease with no acute intracranial pathology. Brain MRI with MRA 08/28/16 13:34 IMPRESSION: NORMAL MRA OF THE [place]. Head MRI 08/28/16 13:34 IMPRESSION: Mild right maxillary sinus disease with no acute intracranial pathology. Renal Ultrasound 08/30/16 00:00 IMPRESSION: No acute findings. Chronic medicorenal disease pattern. Vascular Ultrasound 08/30/16 15:29 IMPRESSION: NO DOPPLER EVIDENCE OF HEMODYNAMICALLY SIGNIFICANT RENAL ARTERY STENOSIS. Assessment & Plan - Diagnosis (1) Hypertensive emergency Is this a current diagnosis for this admission?: Yes (2) HTN (hypertension) Qualifiers: Hypertension type: essential hypertension Qualified Code(s): I10 - Essential (primary) hypertension Is this a current diagnosis for this admission?: Yes (3) CAD (coronary artery disease) Qualifiers: Coronary Disease-Associated Artery/Lesion type: [place] artery Associated angina: without angina Is this a current diagnosis for this admission?: Yes (4) HLD (hyperlipidemia) Qualifiers: Hyperlipidemia type: pure hypercholesterolemia Qualified Code(s): E78.00 - Pure hypercholesterolemia, unspecified; E78.0 - Pure hypercholesterolemia Is this a current diagnosis for this admission?: Yes (5) Hypothyroidism Qualifiers: Hypothyroidism type: unspecified Qualified Code(s): E03.9 - Hypothyroidism, unspecified Is this a current diagnosis for this admission?: Yes (6) Depression Is this a current diagnosis for this admission?: Yes (7) Cigarette smoker Is this a current diagnosis for this admission?: Yes (8) Bipolar disorder Qualifiers: Active/Remission status: currently active Is this a current diagnosis for this admission?: Yes - Time Time Spent with patient: 25-34 minutes Medications reviewed and adjusted accordingly: Yes Anticipated discharge: Home Within: Other - Inpatient Certification Medical Necessity: Need Close Monitoring Due to Risk of Patient Decompensation, Need For Continuous Telemetry Monitoring, Risk of Complication if Not Cared For in Hospital Post Hospital Care: D/C [employer] Documentation - Plan Summary Plan Summary: See covering attending physician orders.
[2016-09-02] MEDS: LANSOPRAZOLE 15 MG TAB.RAP.DR PO SCH (05:03)
[2016-09-02 08:28] LABS: ANION GAP 11 (5-19); BLOOD UREA NITROGEN 27 mg/dL (7-20); CALCIUM 9.2 mg/dL (8.4-10.2); CARBON DIOXIDE 24 mmol/L (22-30); CHLORIDE 102 mmol/L (98-107); GLUCOSE 150 mg/dL (75-110); POTASSIUM 4.5 mmol/L (3.6-5.0)
[2016-09-02] MEDS: ARIPIPRAZOLE 5 MG TABLET PO SCH (08:35)
[2016-09-02 09:00] VITALS: BP 137/85
[2016-09-02] MEDS: ASPIRIN 81 MG TABLET, ENT COATED PO SCH (09:30)
[2016-09-02] MEDS: METOPROLOL TARTRATE 25 MG TABLET PO SCH (09:30)
[2016-09-02] MEDS: NIFEDIPINE 30 MG TAB.ER.24 PO SCH (09:31)
[2016-09-02] MEDS: CLOPIDOGREL BISULFATE 75 MG TABLET PO SCH (09:31)
[2016-09-02] MEDS: ENOXAPARIN SODIUM INJ 40 MG/0.4 ML DISP.SYRIN SUBCUT SCH (09:33)
[2016-09-02] MEDS: LIOTHYRONINE SODIUM 25 MCG TABLET PO SCH (09:35)
[2016-09-02] MEDS: VENLAFAXINE HCL 75 MG CAP.SR.24H PO SCH (09:35)
[2016-09-02] MEDS: THYROID (PORK) 60 MG TABLET PO SCH (09:35)
[2016-09-02] MEDS: LIDOCAINE 5% (700 MG) TRANSDERMAL ADH..PATCH TP SCH (09:36)
--- NOTE | 2016-09-02 10:14 | PDOC DISCHARGE SUMMARY ---
General - Admit/Disc Date/PCP Admission Date/Primary Care Provider: 08/28/16 16:34 TYRON WOODALL MD Discharge Date: 09/02/16 - Discharge Diagnosis (1) Hypertensive emergency Is this a current diagnosis for this admission?: YesSummary: Currently all resolved (2) CAD (coronary artery disease) Is this a current diagnosis for this admission?: YesSummary: Continues to current medications (3) CVA (cerebral vascular accident) Is this a current diagnosis for this admission?: YesSummary: Continues the Plavix and aspirin (4) HLD (hyperlipidemia) Is this a current diagnosis for this admission?: YesSummary: Stable (5) Headache Is this a current diagnosis for this admission?: YesSummary: Currently all resolved (6) Hypothyroidism Is this a current diagnosis for this admission?: YesSummary: Continues to current medications (7) Bipolar disorder Is this a current diagnosis for this admission?: YesSummary: Follow with the psych - Additional Information Resuscitation Status: Full Code Discharge Diet: Cardiac Discharge Activity: Activity As Tolerated Home Medications: Aripiprazole [Abilify 30 mg Tablet] 30 mg PO DAILY 08/28/16 Clopidogrel Bisulfate [Plavix 75 mg Tablet] 75 mg PO DAILY 08/28/16 Fenofibrate 160 mg PO DAILY 08/28/16 Hydroxyzine HCl [Atarax 25 mg Tablet] 25 mg PO DAILY 08/28/16 Levocetirizine Dihydrochloride [Xyzal] 5 mg PO QPM 08/28/16 Lidocaine [Lidoderm 5% (700 mg) Transdermal Patch] 1 patch TOP DAILY 08/28/16 Liothyronine Sodium [Cytomel 25 Mcg Tablet] 25 mcg PO QAM 08/28/16 Metoprolol Tartrate [Lopressor 25 mg Tablet] 25 mg PO Q12 08/28/16 Mirtazapine [Remeron] 30 mg PO QHS 08/28/16 Quetiapine Fumarate [Seroquel 100 mg Tablet] 100 mg PO QHS 08/28/16 Rosuvastatin Calcium [Crestor] 40 mg PO DAILY 08/28/16 Thyroid (Pork) [[place] Thyroid 60 mg Tablet] 60 mg PO DAILY 08/28/16 Venlafaxine HCl [Effexor Xr] 150 mg PO BID 06/30/17 Metoprolol Tartrate [Lopressor 25 mg Tablet] 12.5 mg PO Q12 #60 tablet 09/02/16 Nifedipine [Procardia XL 30 mg Tablet] 60 mg PO Q12 #60 tab.er.24 09/02/16 History of Present Illness History of Present Illness: CRISTIANE LOVE is a 61 year old female This is a 61-year-old female present in the office with the blood pressure was 190/120 range and patient at this point sent to the emergency department and admitting in the hospital for hypertension urgency Hospital Course Hospital Course: This 61-year-old female present in my office with a blood pressure was elevated and complaining of a severe headache patient was Directed to the emergency department where initial CT head and again MRI of the head and MRA was all negative for any acute stroke Patient's blood pressure was still elevated and patient was admitting in the hospital for further evaluation and treatment for hypertension's urgency Patient was put on nifedipine and continues to metro propanolol and patients respond very well On discharge patient's blood pressure was running 120 range Patient's metro propanolol was decreased due to the heart rate at nighttime going to the lack of 50-60 rangeBut during the daytime running 70-80 range and patient is completely asymptomatic Discussed with the patient about smoking cessation Patient's creatinine was stable 1.4 Discussed with the patient about the smoking cessation and also discuss about the low-salt diet check her blood pressure daily at home and following a one- week in office Physical Exam Vital Signs: Temp Pulse Resp BP Pulse Ox 98.0 F 69 20 137/85 H 98 09/02/16 08:58 09/02/16 08:58 09/02/16 08:58 09/02/16 08:58 09/02/16 08:58 Intake & Output 09/01/16 09/02/16 09/03/16 06:59 06:59 06:59 Intake Total 2902 2234 Output Total 400 Balance 2502 2234 Weight 75.4 kg 76.9 kg General appearance: PRESENT: no acute distress, well-developed, well-nourished Head exam: PRESENT: atraumatic, normocephalic Eye exam: PRESENT: conjunctiva pink, EOMI, PERRLA. ABSENT: scleral icterus Ear exam: PRESENT: normal external ear exam Mouth exam: PRESENT: moist, tongue midline Neck exam: PRESENT: full ROM. ABSENT: carotid bruit, JVD, lymphadenopathy, thyromegaly Respiratory exam: PRESENT: clear to auscultation nuvia Cardiovascular exam: PRESENT: RRR. ABSENT: diastolic murmur, rubs, systolic murmur Pulses: PRESENT: normal dorsalis pedis pul, +2 pedal pulses bilateral Vascular exam: PRESENT: normal capillary refill GI/Abdominal exam: PRESENT: normal bowel sounds, soft. ABSENT: distended, guarding, mass, organolmegaly, rebound, tenderness Rectal exam: PRESENT: deferred Neurological exam: PRESENT: alert, awake, oriented to person, oriented to place , oriented to time, oriented to situation, CN II-XII grossly intact. ABSENT: motor sensory deficit Psychiatric exam: PRESENT: appropriate affect, normal mood. ABSENT: homicidal ideation, suicidal ideation Skin exam: PRESENT: dry, intact, warm. ABSENT: cyanosis, rash Results Laboratory Results: 08/31/16 05:42 09/02/16 07:50 09/02/16 07:50 Sodium 137.0 Potassium 4.5 Chloride 102 Carbon Dioxide 24 Anion Gap 11 BUN 27 H Creatinine 1.40 H Est GFR ( Amer) 46 L Est GFR (Non-Af Amer) 38 L Glucose 150 H Calcium 9.2 08/28/16 08/28/16 08/28/16 16:35 16:35 22:30 Creatine Kinase 50 44 CK-MB (CK-2) 2.56 Troponin I 0.032 08/28/16 08/29/16 08/29/16 22:30 05:00 05:00 Creatine Kinase 45 CK-MB (CK-2) 2.36 2.00 Troponin I 0.026 0.021 Impressions: Chest X-Ray 08/28/16 11:27 IMPRESSION: Chronic lung changes with no acute cardiopulmonary disease. Head CT 08/28/16 11:27 IMPRESSION: Right maxillary sinus disease with no acute intracranial pathology. Brain MRI with MRA 08/28/16 13:34 IMPRESSION: NORMAL MRA OF THE [place]. Head MRI 08/28/16 13:34 IMPRESSION: Mild right maxillary sinus disease with no acute intracranial pathology. Renal Ultrasound 08/30/16 00:00 IMPRESSION: No acute findings. Chronic medicorenal disease pattern. Vascular Ultrasound 08/30/16 15:29 IMPRESSION: NO DOPPLER EVIDENCE OF HEMODYNAMICALLY SIGNIFICANT RENAL ARTERY STENOSIS. Plan Time Spent: Greater than 30 Minutes - Discharge home with about new medications follow in office in 1 week repeat the Chem-7 in the check of blood pressure at home
== END 2016-09-02 09:55 | disposition home or self-care (01) | DRG 305 ==
LOC: ER 11:08 → EH 16:34 → UNDOADMIN 18:24 → 3S 21:32
PROVIDERS: ADMIT Family Medicine; ATTEND Family Medicine
DX: I16.1 Hypertensive emergency (principal); I25.10 Atherosclerotic heart disease of native coronary artery without angina pectoris; E78.00 Pure hypercholesterolemia, unspecified; E78.5 Hyperlipidemia, unspecified; E03.9 Hypothyroidism, unspecified; F31.9 Bipolar disorder, unspecified; G47.30 Sleep apnea, unspecified; J44.9 Chronic obstructive pulmonary disease, unspecified; E11.9 Type 2 diabetes mellitus without complications; Z85.3 Personal history of malignant neoplasm of breast; Z79.82 Long term (current) use of aspirin; Z79.02 Long term (current) use of antithrombotics/antiplatelets; Z79.899 Other long term (current) drug therapy; Z86.718 Personal history of other venous thrombosis and embolism; Z86.73 Personal history of transient ischemic attack (TIA), and cerebral infarction without residual deficits; Z86.711 Personal history of pulmonary embolism; Z90.710 Acquired absence of both cervix and uterus; Z96.642 Presence of left artificial hip joint; F17.200 Nicotine dependence, unspecified, uncomplicated
CPT/HCPCS: 36415; 70450; 70544; 70551; 71020; 76770; 80048; 80053; 81001; 82550; 82553; 83690; 83735; 84484; 85025; 85610; 87040; 87086; 93005; 93010; 93976; 94640; 96361; 96365; 96375; 96376; 99291; J0360; J0696; J1650; J3490; J7030; J7620

== ENCOUNTER → 2016-10-07 | Outpatient (CLI) | payer BC, MEDICAID ==
--- NOTE | 2016-10-08 11:54 | RADIOLOGY REPORT (SQ) ---
EXAM DESCRIPTION: MRI RT LOWER JOINT WITHOUT COMPLETED DATE/TIME: 10/07/2016 4:56 pm REASON FOR STUDY: RIGHT KNEE PAIN M25.561 PAIN IN RIGHT KNEE COMPARISON: None. TECHNIQUE: Rightknee images acquired and stored on PACS. Multiplanar images include fat sensitive s equences as T1, water sensitive sequences as FST2 or STIR, cartilage sensitive sequences as FSPD, and gradient echo sequences. LIMITATIONS: None. FINDINGS: JOINT AND BURSAE: No effusion. Multi septated Guerra's cyst, 4.5 x 1.5 x 0.7 cm in size BONE CORTEX AND MARROW: No alteration of signal to suggest marrow replacement. No worrisome bone lesi ons. No occult fracture. ACL: Intact. No degeneration or ganglion cyst. PCL: Intact. MCL: Intact. No periligamentous edema or fluid. LCL: Intact. No periligamentous edema or fluid. MEDIAL MENISCUS: Small undersurface tear posterior horn medial meniscus, best shown on coronal image 16 and sagittal image 16 LATERAL MENISCUS: Small undersurface tear posterior horn lateral meniscus, best shown on coronal imag e 16, and sagittal image 6 MEDIAL COMPARTMENT: Mild chondromalacia. No bone bruises or reactive marrow edema. No osteophytes. LATERAL COMPARTMENT: Cartilage preserved. No bone bruises or reactive marrow edema. No osteophytes. PATELLA: No chondromalacia. No subchondral cysts. Medial and lateral retinacula intact. Mild medial subluxation of patella with respect to the femur on axial images 6-12 EXTENSOR MECHANISM: Intact. Quadriceps and patella tendons normal. SOFT TISSUES: Adjacent muscles and subcutaneous tissues normal. Normal flow void in popliteal artery and vein. OTHER: No other significant finding. IMPRESSION: Small posterior horn medial and lateral meniscal tears without parameniscal cyst TECHNICAL DOCUMENTATION: JOB ID: [id number] [employer]- All Rights Reserved
== END ==
LOC: RAD 16:05
PROVIDERS: ATTEND Orthopaedic Surgery Sports Medicine
DX: M25.561 Pain in right knee (principal)

== ENCOUNTER → 2016-11-27 | Outpatient (CLI) | payer BC, MEDICAID ==
[2016-11-27 13:04] LABS: APPEARANCE,URINE CLEAR; BILIRUBIN,URINE NEGATIVE (NEGATIVE); GLUCOSE, URINE NEGATIVE (NEGATIVE); KETONES,URINE NEGATIVE (NEGATIVE); LEUKOCYTE ESTERASE,URINE NEGATIVE (NEGATIVE); NITRITE,URINE NEGATIVE (NEGATIVE); PROTEIN,URINE 100 mg/dL (NEGATIVE); URINE SPECIFIC GRAVITY 1.002; UROBILINOGEN,URINE NEGATIVE mg/dL (<2.0)
[2016-11-27 13:18] LABS: HEMATOCRIT 42.4 % (36.0-47.0); HEMOGLOBIN 14.7 g/dL (12.0-15.5); HGB HCT DIFFERENCE 1.7; MEAN CORPUSCULAR HEMOGLOBIN 30.4 pg (27.0-33.4); MEAN CORPUSCULAR HGB CONC 34.7 g/dL (32.0-36.0); MEAN CORPUSCULAR VOLUME 88 fl (80-97); RED BLOOD COUNT 4.83 10^6/uL (3.72-5.28); RED CELL DISTRIBUTION WIDTH 13.9 % (11.5-14.0); WHITE BLOOD COUNT 8.8 10^3/uL (4.0-10.5)
[2016-11-27 13:45] LABS: ALANINE AMINOTRANSFERASE 37 U/L (9-52); ALBUMIN 4.1 g/dL (3.5-5.0); ALKALINE PHOSPHATASE 182 U/L (38-126); ANION GAP 11 (5-19); ASPARTATE AMINO TRANSFERASE 30 U/L (14-36); BILIRUBIN,DIRECT 0.4 mg/dL (0.0-0.4); BILIRUBIN,TOTAL 0.4 mg/dL (0.2-1.3); BLOOD UREA NITROGEN 18 mg/dL (7-20); CALCIUM 10.1 mg/dL (8.4-10.2); CARBON DIOXIDE 27 mmol/L (22-30); CHLORIDE 98 mmol/L (98-107); CREATININE RESULT 1.41 mg/dL (0.52-1.25); GLUCOSE 102 mg/dL (75-110); POTASSIUM 4.5 mmol/L (3.6-5.0); SODIUM 135.7 mmol/L (137-145)
[2016-11-27 15:51] LABS: ADD HIVPANEL? NO; HIV (1 AND 2) ANTIBODY NEGATIVE (NEGATIVE)
[2016-11-28 07:42] LABS: COMPLEMENT C4 19 mg/dL (14-44)
[2016-11-28 16:38] LABS: CREATININE URINE 10.7 mg/dL (Not Estab.)
[2016-11-29 09:42] LABS: MICROALBUMIN URINE 639.6 ug/mL (Not Estab.)
[2016-11-29 09:43] LABS: COMPLEMENT C3 184 mg/dL (82-167)
== END ==
LOC: OD 11:34
PROVIDERS: ATTEND Physician Assistant Medical
DX: E11.22 Type 2 diabetes mellitus with diabetic chronic kidney disease (principal); I12.9 Hypertensive chronic kidney disease with stage 1 through stage 4 chronic kidney disease, or unspecified chronic kidney disease; N18.3 Chronic kidney disease, stage 3 (moderate); R80.9 Proteinuria, unspecified
CPT/HCPCS: 36415; 80053; 81001; 82043; 82570; 85027; 86038; 86160; 86701; 86704; 86803; 86804; 87340; 87350

== ENCOUNTER → 2017-01-07 | Outpatient (CLI) | payer BC, MEDICAID ==
[2017-01-07 12:01] LABS: HEMATOCRIT 43.5 % (36.0-47.0); HEMOGLOBIN 15.2 g/dL (12.0-15.5); HGB HCT DIFFERENCE 2.1; MEAN CORPUSCULAR HEMOGLOBIN 31.1 pg (27.0-33.4); MEAN CORPUSCULAR HGB CONC 34.8 g/dL (32.0-36.0); MEAN CORPUSCULAR VOLUME 89 fl (80-97); RED BLOOD COUNT 4.87 10^6/uL (3.72-5.28); WHITE BLOOD COUNT 9.6 10^3/uL (4.0-10.5)
[2017-01-07 12:05] LABS: APPEARANCE,URINE SLIGHTLY-CLOUDY; BILIRUBIN,URINE NEGATIVE (NEGATIVE); GLUCOSE, URINE 50 mg/dL (NEGATIVE); KETONES,URINE NEGATIVE (NEGATIVE); LEUKOCYTE ESTERASE,URINE NEGATIVE (NEGATIVE); NITRITE,URINE NEGATIVE (NEGATIVE); PROTEIN,URINE >=500 mg/dL (NEGATIVE); URINE SPECIFIC GRAVITY 1.014; UROBILINOGEN,URINE NEGATIVE mg/dL (<2.0)
[2017-01-07 12:26] LABS: URINE CREATININE 65.5 mg/dL (15-278)
[2017-01-07 12:29] LABS: ALANINE AMINOTRANSFERASE 35 U/L (9-52); ALKALINE PHOSPHATASE 152 U/L (38-126); ANION GAP 13 (5-19); ASPARTATE AMINO TRANSFERASE 23 U/L (14-36); BILIRUBIN,DIRECT 0.4 mg/dL (0.0-0.4); BILIRUBIN,TOTAL 0.4 mg/dL (0.2-1.3); BLOOD UREA NITROGEN 18 mg/dL (7-20); CARBON DIOXIDE 25 mmol/L (22-30); CHLORIDE 100 mmol/L (98-107); CREATININE RESULT 1.37 mg/dL (0.52-1.25); GLUCOSE 165 mg/dL (75-110); POTASSIUM 4.2 mmol/L (3.6-5.0); SODIUM 138.4 mmol/L (137-145); TOTAL PROTEIN 6.3 g/dL (6.3-8.2)
[2017-01-07 13:06] LABS: URINE PROTEIN 932.3 mg/dL (<12)
== END ==
LOC: OD 10:50
PROVIDERS: ATTEND Physician Assistant Medical
DX: I12.9 Hypertensive chronic kidney disease with stage 1 through stage 4 chronic kidney disease, or unspecified chronic kidney disease (principal); N18.3 Chronic kidney disease, stage 3 (moderate); R80.9 Proteinuria, unspecified; E11.9 Type 2 diabetes mellitus without complications
CPT/HCPCS: 36415; 80053; 81001; 82570; 84156; 85027

== ENCOUNTER → 2017-01-14 | Outpatient (CLI) | payer BC, MEDICAID ==
[2017-01-15 14:22] LABS: URINE PROTEIN 296.9 mg/dL (<12)
[2017-01-18 18:36] LABS: ANTIPROTEINASE 3 (PR-3) AB <3.5 U/mL (0.0-3.5); CYTOPLASMIC (C-ANCA) <1:20 titer (Neg:<1:20)
== END ==
LOC: OD 14:43
PROVIDERS: ATTEND Physician Assistant Medical
DX: N18.3 Chronic kidney disease, stage 3 (moderate) (principal); R80.9 Proteinuria, unspecified; E11.9 Type 2 diabetes mellitus without complications
CPT/HCPCS: 36415; 82570; 83516; 84156; 86256

== ENCOUNTER → 2017-02-03 | Outpatient (CLI) | payer BC, MEDICAID ==
[2017-02-03 12:31] LABS: URINE CREATININE 18.5 mg/dL (15-278)
[2017-02-03 12:43] LABS: URINE PROTEIN 270.2 mg/dL (<12)
[2017-02-04 17:37] LABS: ANTIPROTEINASE 3 (PR-3) AB <3.5 U/mL (0.0-3.5)
== END ==
LOC: OD 11:02
PROVIDERS: ATTEND Physician Assistant Medical
DX: N18.3 Chronic kidney disease, stage 3 (moderate) (principal); R80.9 Proteinuria, unspecified; E11.9 Type 2 diabetes mellitus without complications
CPT/HCPCS: 36415; 82570; 83516; 84156; 86256

== ENCOUNTER 2017-02-24 05:36 | Day surgery (SDC) | payer BC, MEDICAID ==
[2017-02-24 06:38] VITALS: BP 188/113
[2017-02-24 06:43] LABS: HEMATOCRIT 43.2 % (36.0-47.0); HEMOGLOBIN 14.7 g/dL (12.0-15.5); MEAN CORPUSCULAR HEMOGLOBIN 30.6 pg (27.0-33.4); MEAN CORPUSCULAR VOLUME 90 fl (80-97); PLATELET COUNT 348 10^3/uL (150-450); RED BLOOD COUNT 4.79 10^6/uL (3.72-5.28); RED CELL DISTRIBUTION WIDTH 14.4 % (11.5-14.0); WHITE BLOOD COUNT 8.9 10^3/uL (4.0-10.5)
[2017-02-24 06:53] LABS: INTERNATIONAL RATION (INR) 0.81; PROTHROMBIN TIME 11.8 SEC (11.4-15.4)
[2017-02-24 06:54] LABS: PARTIAL THROMBOPLASTIN TIME 36.1 SEC (23.5-35.8)
[2017-02-24 07:06] LABS: BLOOD UREA NITROGEN 19 mg/dL (7-20)
[2017-02-24] MEDS ORDERED: METOPROLOL TARTRATE 25 MG TABLET PO ONE (08:00)
[2017-02-24] MEDS ORDERED: NIFEDIPINE 30 MG TAB.ER.24 PO ONE (08:00)
== END 2017-02-24 10:10 | disposition home or self-care (01) ==
LOC: RAD 05:36
PROVIDERS: ATTEND Internal Medicine Nephrology
DX: N04.9 Nephrotic syndrome with unspecified morphologic changes (principal)
CPT/HCPCS: 36415; 82565; 84520; 85027; 85610; 85730

== ENCOUNTER 2017-03-03 05:39 | Day surgery (SDC) | payer BC, MEDICAID ==
[2017-03-03 06:29] LABS: HEMATOCRIT 45.5 % (36.0-47.0); HEMOGLOBIN 15.6 g/dL (12.0-15.5); MEAN CORPUSCULAR HEMOGLOBIN 30.9 pg (27.0-33.4); MEAN CORPUSCULAR HGB CONC 34.3 g/dL (32.0-36.0); MEAN CORPUSCULAR VOLUME 90 fl (80-97); PLATELET COUNT 445 10^3/uL (150-450); RED BLOOD COUNT 5.04 10^6/uL (3.72-5.28); RED CELL DISTRIBUTION WIDTH 14.4 % (11.5-14.0); WHITE BLOOD COUNT 8.2 10^3/uL (4.0-10.5)
[2017-03-03 06:34] LABS: INTERNATIONAL RATION (INR) 0.77; PARTIAL THROMBOPLASTIN TIME 34.9 SEC (23.5-35.8); PROTHROMBIN TIME 11.3 SEC (11.4-15.4)
[2017-03-03 06:41] LABS: BLOOD UREA NITROGEN 19 mg/dL (7-20)
[2017-03-03] MEDS ORDERED: MIDAZOLAM 2 MG/2 ML INJ ONE (08:46)
[2017-03-03] MEDS ORDERED: FENTANYL CITRATE INJ/PF 100 MCG/2 ML AMPUL ONE (08:47)
[2017-03-03] MEDS ORDERED: OXYCODONE-ACETAMINOPHEN 5-325 MG TABLET ONE (10:10)
[2017-03-03 12:50] VITALS: BP 163/104
--- NOTE | 2017-03-03 13:00 | RADIOLOGY REPORT (SQ) ---
EXAM DESCRIPTION: CT BIOPSY RENAL; CT NEEDLE PLACEMENT COMPLETED DATE/TIME: 03/03/2017 9:39 am; 03/03/2017 9:38 am REASON FOR STUDY: NEPHROTIC SYNDROME WITH UNSPECIFIED CHANGES; NEPHROTIC SYNDROME WITH UNSPECIFIED C HANGES, RENAL BX N04.9 NEPHROTIC SYNDROME WITH UNSPECIFIED MORPHOLOGIC CHANGE COMPARISON: None. RADIATION DOSE: CT Rad equipment meets quality standard of care and radiation dose reduction techniq ues were employed. CTDIvol: 4.0 - 18.5 mGy. DLP: 873 mGy-cm. mGy. LIMITATIONS: None. PROCEDURE: Procedure was discussed with the patient and the patient agreed to the procedure. Preliminary CT scanning to localize the biopsy site was performed. A site was marked on the right lo wer pole kidney and time out was performed. Procedure was performed using CT fluoroscopy. Total expo sure time: 4.2 s. IV sedation was administered and physician direction by the registered nurse using 1.5 milligrams of Versed and 75 micrograms of fentanyl. Physiologic monitoring was provided before, during, and after s edation. The total sedation time was 48 minutes. Documentation face to face time, the performing proceduralist, spent monitoring the patient: 15minute s. After sterile skin prep with ChloraPrep, local lidocaine for skin and deep tissue anesthesia, the rig ht lower pole kidney was localized. A coaxial 19 gauge needle was used to obtain 5 cores of tissue fr om the right lower pole kidney. The biopsy tract was embolized with Gelfoam. Specimens were sent to the lab in sterile saline All CT scanners at this facility use dose modulation, iterative reconstruction, and/or weight based d osing when appropriate to reduce radiation dose to as low as reasonably achievable (ALARA). [facility]: Dose Right [facility]: CareDose [facility]: Dose Right [facility]: Teradose 4D [facility]: COMARCO FINDINGS: There were no immediate complications. Specimen was carried to cytology on sterile saline gauze and submitted to the spot remover for processing. Pathology is pending at the time of dict ation. IMPRESSION: CT GUIDED RIGHT KIDNEY CORTICAL BIOPSY. COMMENT: Patient medication list reviewed:Yes- Quality ID# [id number]:Eligible professional attests to docu menting in the medical record they obtained, updated, or reviewed the patient's current medications.. TECHNICAL DOCUMENTATION: JOB ID: [id number] Quality ID #[id number]: Final reports for procedures using fluoroscopy that document radiation exposure devika tomeka, or exposure time and number of fluorographic images (if radiation exposure indices are not avail able) Quality ID # [id number]: Final reports with documentation of one or more dose reduction techniques (e.g., Au tomated exposure control, adjustment of the mA and/or kV according to patient size, use of iterative reconstruction technique) 2010 [employer]- All Rights Reserved
--- NOTE | 2017-03-03 13:00 | RADIOLOGY REPORT (SQ) ---
EXAM DESCRIPTION: CT BIOPSY RENAL; CT NEEDLE PLACEMENT COMPLETED DATE/TIME: 03/03/2017 9:39 am; 03/03/2017 9:38 am REASON FOR STUDY: NEPHROTIC SYNDROME WITH UNSPECIFIED CHANGES; NEPHROTIC SYNDROME WITH UNSPECIFIED C HANGES, RENAL BX N04.9 NEPHROTIC SYNDROME WITH UNSPECIFIED MORPHOLOGIC CHANGE COMPARISON: None. RADIATION DOSE: CT Rad equipment meets quality standard of care and radiation dose reduction techniq ues were employed. CTDIvol: 4.0 - 18.5 mGy. DLP: 873 mGy-cm. mGy. LIMITATIONS: None. PROCEDURE: Procedure was discussed with the patient and the patient agreed to the procedure. Preliminary CT scanning to localize the biopsy site was performed. A site was marked on the right lo wer pole kidney and time out was performed. Procedure was performed using CT fluoroscopy. Total expo sure time: 4.2 s. IV sedation was administered and physician direction by the registered nurse using 1.5 milligrams of Versed and 75 micrograms of fentanyl. Physiologic monitoring was provided before, during, and after s edation. The total sedation time was 48 minutes. Documentation face to face time, the performing proceduralist, spent monitoring the patient: 15minute s. After sterile skin prep with ChloraPrep, local lidocaine for skin and deep tissue anesthesia, the rig ht lower pole kidney was localized. A coaxial 19 gauge needle was used to obtain 5 cores of tissue fr om the right lower pole kidney. The biopsy tract was embolized with Gelfoam. Specimens were sent to the lab in sterile saline All CT scanners at this facility use dose modulation, iterative reconstruction, and/or weight based d osing when appropriate to reduce radiation dose to as low as reasonably achievable (ALARA). [facility]: Dose Right [facility]: CareDose [facility]: Dose Right [facility]: Teradose 4D [facility]: ehealthtracker FINDINGS: There were no immediate complications. Specimen was carried to cytology on sterile saline gauze and submitted to the precinct commanding officer for processing. Pathology is pending at the time of dict ation. IMPRESSION: CT GUIDED RIGHT KIDNEY CORTICAL BIOPSY. COMMENT: Patient medication list reviewed:Yes- Quality ID# [id number]:Eligible professional attests to docu menting in the medical record they obtained, updated, or reviewed the patient's current medications.. TECHNICAL DOCUMENTATION: JOB ID: [id number] Quality ID #[id number]: Final reports for procedures using fluoroscopy that document radiation exposure devika tomeka, or exposure time and number of fluorographic images (if radiation exposure indices are not avail able) Quality ID # [id number]: Final reports with documentation of one or more dose reduction techniques (e.g., Au tomated exposure control, adjustment of the mA and/or kV according to patient size, use of iterative reconstruction technique) 2010 [employer]- All Rights Reserved
== END 2017-03-03 11:50 | disposition home or self-care (01) ==
LOC: RAD 05:39
PROVIDERS: ATTEND Internal Medicine Nephrology
PROC: 0TB33ZX Excision of Right Kidney Pelvis, Percutaneous Approach, Diagnostic (ICD-10-PCS; principal; 2017-03-03)
DX: I12.9 Hypertensive chronic kidney disease with stage 1 through stage 4 chronic kidney disease, or unspecified chronic kidney disease (principal); N18.3 Chronic kidney disease, stage 3 (moderate); Z79.51 Long term (current) use of inhaled steroids; Z79.82 Long term (current) use of aspirin; F17.210 Nicotine dependence, cigarettes, uncomplicated; I25.10 Atherosclerotic heart disease of native coronary artery without angina pectoris; M19.90 Unspecified osteoarthritis, unspecified site; J44.9 Chronic obstructive pulmonary disease, unspecified; Z85.3 Personal history of malignant neoplasm of breast; Z85.850 Personal history of malignant neoplasm of thyroid; I48.91 Unspecified atrial fibrillation; E11.21 Type 2 diabetes mellitus with diabetic nephropathy; E11.319 Type 2 diabetes mellitus with unspecified diabetic retinopathy without macular edema; K21.9 Gastro-esophageal reflux disease without esophagitis; M10.9 Gout, unspecified; E89.0 Postprocedural hypothyroidism; Z96.649 Presence of unspecified artificial hip joint; Z96.653 Presence of artificial knee joint, bilateral; H35.00 Unspecified background retinopathy; Z88.6 Allergy status to analgesic agent; Z88.5 Allergy status to narcotic agent; Z88.8 Allergy status to other drugs, medicaments and biological substances
CPT/HCPCS: 36415; 84520; 82565; 82947; 85027; 85610; 85730; 88346; 88348 ×2; 88313 ×2; 77012; 50200; J2250; J3010

== ENCOUNTER → 2017-03-09 | Outpatient (CLI) | payer BC, MEDICAID ==
[2017-03-09 11:05] LABS: HEMATOCRIT 43.7 % (36.0-47.0); HEMOGLOBIN 14.9 g/dL (12.0-15.5); MEAN CORPUSCULAR HEMOGLOBIN 30.8 pg (27.0-33.4); MEAN CORPUSCULAR HGB CONC 34.2 g/dL (32.0-36.0); MEAN CORPUSCULAR VOLUME 90 fl (80-97); PLATELET COUNT 452 10^3/uL (150-450); RED BLOOD COUNT 4.84 10^6/uL (3.72-5.28); RED CELL DISTRIBUTION WIDTH 13.9 % (11.5-14.0)
[2017-03-09 11:29] LABS: UR PRO/CREAT RATIO RESULT 8.8 mg/mg (0.0-0.2); URINE CREATININE 18.4 mg/dL (15-278)
[2017-03-09 11:34] LABS: ANION GAP 9 (5-19); BLOOD UREA NITROGEN 16 mg/dL (7-20); CALCIUM 9.9 mg/dL (8.4-10.2); CARBON DIOXIDE 27 mmol/L (22-30); CHLORIDE 104 mmol/L (98-107); GLUCOSE 115 mg/dL (75-110); POTASSIUM 4.5 mmol/L (3.6-5.0); SODIUM 140.3 mmol/L (137-145)
== END ==
LOC: OD 10:11
PROVIDERS: ATTEND Physician Assistant Medical
DX: I12.9 Hypertensive chronic kidney disease with stage 1 through stage 4 chronic kidney disease, or unspecified chronic kidney disease (principal); N18.3 Chronic kidney disease, stage 3 (moderate); R80.9 Proteinuria, unspecified; E11.9 Type 2 diabetes mellitus without complications
CPT/HCPCS: 36415; 80048; 82040; 82570; 84156; 85027

== ENCOUNTER → 2017-03-17 | Outpatient (CLI) | payer BC, MEDICAID ==
[2017-03-17 16:18] LABS: ABSOLUTE BASOPHILS # (AUTO) 0.1 10^3/uL (0.0-0.2); ABSOLUTE MONOCYTES (AUTO) 0.5 10^3/uL (0.1-1.4); ABSOLUTE NEUT (AUTO) 8.2 10^3/uL (1.7-8.2); EOSINOPHILS % (AUTO) 0.4 % (0-6); HEMATOCRIT 48.5 % (36.0-47.0); HEMOGLOBIN 16.9 g/dL (12.0-15.5); LYMPHOCYTES % (AUTO) 25.7 % (13-45); MEAN CORPUSCULAR HEMOGLOBIN 31.2 pg (27.0-33.4); MEAN CORPUSCULAR HGB CONC 34.8 g/dL (32.0-36.0); MEAN CORPUSCULAR VOLUME 90 fl (80-97); PLATELET COUNT 442 10^3/uL (150-450); RED BLOOD COUNT 5.41 10^6/uL (3.72-5.28); RED CELL DISTRIBUTION WIDTH 13.7 % (11.5-14.0); SEGMENTED NEUTROPHILS % (AUTO) 68.9 % (42-78); TOTAL CELLS COUNTED % (AUTO) 100 %; WHITE BLOOD COUNT 11.9 10^3/uL (4.0-10.5)
[2017-03-17 16:37] LABS: ALANINE AMINOTRANSFERASE 31 U/L (9-52); ALBUMIN 4.3 g/dL (3.5-5.0); ALKALINE PHOSPHATASE 119 U/L (38-126); ANION GAP 10 (5-19); ASPARTATE AMINO TRANSFERASE 25 U/L (14-36); BILIRUBIN,DIRECT 0.3 mg/dL (0.0-0.4); BILIRUBIN,TOTAL 0.3 mg/dL (0.2-1.3); BLOOD UREA NITROGEN 17 mg/dL (7-20); CALCIUM 10.4 mg/dL (8.4-10.2); CARBON DIOXIDE 26 mmol/L (22-30); CHLORIDE 97 mmol/L (98-107); GLUCOSE 107 mg/dL (75-110); LIPASE 155.7 U/L (23-300); SODIUM 133.4 mmol/L (137-145); TOTAL PROTEIN 7.1 g/dL (6.3-8.2)
--- NOTE | 2017-03-17 16:59 | RADIOLOGY REPORT (SQ) ---
EXAM DESCRIPTION: ACUTE ABDOMEN SERIES COMPLETED DATE/TIME: 03/17/2017 4:36 pm REASON FOR STUDY: GENERALIZED ABD. PAIN R10.84 GENERALIZED ABDOMINAL PAIN COMPARISON: 2017 chest films. NUMBER OF VIEWS: Three views. TECHNIQUE: Frontal chest, supine abdomen and upright/decubitus abdomen radiographic images acquired. LIMITATIONS: None. FINDINGS: CHEST: Lungs clear of infiltrates. FREE AIR: None. No abnormal gas collections. BOWEL GAS PATTERN: Mild gaseous distension of what appears to be stomach and transverse colon with sc attered presumed colonic air-fluid levels. Mild distal colonic stool. CALCIFICATIONS: No suspicious calcifications. HARDWARE: None in the abdomen. SOFT TISSUES: No gross mass or suggestion of organomegaly. BONES: No acute fracture. No worrisome bone lesions. OTHER: No other significant finding. IMPRESSION: 1. Relatively nonobstructive pattern. Potential mild colonic ileus. TECHNICAL DOCUMENTATION: JOB ID: [id number] [employer]- All Rights Reserved
== END ==
LOC: OD 15:58
PROVIDERS: ATTEND Physician Assistant
DX: R10.84 Generalized abdominal pain (principal)
CPT/HCPCS: 36415; 74022; 80053; 83690; 85025

== ENCOUNTER → 2017-03-22 | Outpatient (CLI) | payer BC, MEDICAID ==
--- NOTE | 2017-03-22 09:15 | RADIOLOGY REPORT (SQ) ---
EXAM DESCRIPTION: U/S LTD DUPLEX ART/DARRICK FLOW COMPLETED DATE/TIME: 03/22/2017 9:03 am REASON FOR STUDY: CKD III (N18.3), HTN (I12.9), PROTEINURIA (R80.9) N18.3 CHRONIC KIDNEY DISEASE, S TAGE 3 (MODERATE) R80.9 PROTEINURIA, UNSPECIFIED I12.9 HYPERTENSIVE CHRONIC KIDNEY DISEASE W STG 1- 4/UNSP CHR COMPARISON: None. TECHNIQUE: Realtime and static grayscale images acquired. Selected color Doppler, velocities and spe ctral images recorded. LIMITATIONS: None. FINDINGS: RIGHT KIDNEY: RENAL ARTERY VELOCITIES: 71.6 cm/sec. Segmental artery velocity 39.0 cm/sec. RENAL VEIN: Color doppler flow present, patent. VELOCITY RATIO: 1.1. Normal waveforms. KIDNEY: Normal size. No significant pathology. LEFT KIDNEY: RENAL ARTERY VELOCITIES: 81.1 cm/sec. Segmental artery velocity 41.4 cm/sec. RENAL VEIN: Color doppler flow present, patent. VELOCITY RATIO: 1.2. Normal waveforms. KIDNEY: Normal size. No significant pathology. BLADDER: Not imaged. OTHER: No other significant finding. IMPRESSION: NO DOPPLER EVIDENCE OF HEMODYNAMICALLY SIGNIFICANT RENAL ARTERY STENOSIS. COMMENT: NORMAL RENAL ARTERY/AORTA VELOCITY RATIO IS LESS THAN OR EQUAL TO 3.5. TECHNICAL DOCUMENTATION: JOB ID: [id number] [employer]- All Rights Reserved
--- NOTE | 2017-03-22 13:18 | RADIOLOGY REPORT (SQ) ---
EXAM DESCRIPTION: U/S RETROPERITON (RENAL/AORTA) COMPLETED DATE/TIME: 03/22/2017 10:06 am REASON FOR STUDY: CKD III (N18.3), HTN (I12.9), PROTEINURIA (R80.9) N18.3 CHRONIC KIDNEY DISEASE, S TAGE 3 (MODERATE) R80.9 PROTEINURIA, UNSPECIFIED I12.9 HYPERTENSIVE CHRONIC KIDNEY DISEASE W STG 1- 4/UNSP CHR COMPARISON: CT-guided renal biopsy 03/03/2017 Bilateral renal ultrasound 08/31/2016 TECHNIQUE: Dynamic and static grayscale images acquired of the kidneys and bladder and recorded on P ACS. Additional selected color Doppler and spectral images recorded. LIMITATIONS: None. FINDINGS: RIGHT KIDNEY: Small, 8.3 cm in length. Cortex is thin and increased in echogenicity from medical renal disease. No cysts, stones, or masses. LEFT KIDNEY: Small, 9.8 cm in length. Mild diffuse increased cortical echogenicity with mild left r enal cortical thinning from medical renal disease. No cysts, stones, or masses. BLADDER: Decompressed, not well seen OTHER FINDINGS: No other significant finding. IMPRESSION: No hydronephrosis. Small echogenic kidneys from medical renal disease TECHNICAL DOCUMENTATION: JOB ID: [id number] [employer]- All Rights Reserved
== END ==
LOC: RAD 07:37
PROVIDERS: ATTEND Physician Assistant Medical
DX: I12.9 Hypertensive chronic kidney disease with stage 1 through stage 4 chronic kidney disease, or unspecified chronic kidney disease (principal); N18.3 Chronic kidney disease, stage 3 (moderate); R80.9 Proteinuria, unspecified
CPT/HCPCS: 76770; 93976

== ENCOUNTER → 2017-03-25 | Outpatient (CLI) | payer BC, MEDICAID ==
[2017-03-25 13:21] LABS: MEAN CORPUSCULAR HEMOGLOBIN 31.5 pg (27.0-33.4); MEAN CORPUSCULAR HGB CONC 34.9 g/dL (32.0-36.0); MEAN CORPUSCULAR VOLUME 90 fl (80-97); PLATELET COUNT 470 10^3/uL (150-450); RED BLOOD COUNT 4.44 10^6/uL (3.72-5.28); RED CELL DISTRIBUTION WIDTH 13.8 % (11.5-14.0); WHITE BLOOD COUNT 10.7 10^3/uL (4.0-10.5)
[2017-03-25 13:47] LABS: ALANINE AMINOTRANSFERASE 20 U/L (9-52); ALBUMIN 3.8 g/dL (3.5-5.0); ALKALINE PHOSPHATASE 131 U/L (38-126); ANION GAP 9 (5-19); ASPARTATE AMINO TRANSFERASE 21 U/L (14-36); BILIRUBIN,DIRECT 0.2 mg/dL (0.0-0.4); BILIRUBIN,TOTAL 0.2 mg/dL (0.2-1.3); BLOOD UREA NITROGEN 21 mg/dL (7-20); CALCIUM 9.4 mg/dL (8.4-10.2); CARBON DIOXIDE 28 mmol/L (22-30); CHLORIDE 93 mmol/L (98-107); GLUCOSE 145 mg/dL (75-110); POTASSIUM 4.5 mmol/L (3.6-5.0); SODIUM 130.1 mmol/L (137-145); TOTAL PROTEIN 6.2 g/dL (6.3-8.2)
[2017-03-25 13:56] LABS: UR PRO/CREAT RATIO RESULT 8.8 mg/mg (0.0-0.2); URINE CREATININE 15.8 mg/dL (15-278)
--- NOTE | 2017-03-25 15:50 | RADIOLOGY REPORT (SQ) ---
EXAM DESCRIPTION: ACUTE ABDOMEN SERIES COMPLETED DATE/TIME: 03/25/2017 1:27 pm REASON FOR STUDY: SLOW TRANSIT CONSTIPATION N18.3 CHRONIC KIDNEY DISEASE, STAGE 3 (MODERATE) E11.9 TYPE 2 DIABETES MELLITUS WITHOUT COMPLICATIONS I12.9 HYPERTENSIVE CHRONIC KIDNEY DISEASE W STG 1-4/ UNSP CHR COMPARISON: 03/17/2017. NUMBER OF VIEWS: Three views. TECHNIQUE: Frontal chest, supine abdomen and upright/decubitus abdomen radiographic images acquired. LIMITATIONS: None. FINDINGS: CHEST: Lungs clear of infiltrates. FREE AIR: None. No abnormal gas collections. BOWEL GAS PATTERN: Nonobstructive pattern. Mild bowel dilation. No abnormal air-fluid levels. CALCIFICATIONS: No suspicious calcifications. HARDWARE: Surgical clips in right upper quadrant. Left hip prosthesis. SOFT TISSUES: No gross mass or suggestion of organomegaly. BONES: No acute fracture. No worrisome bone lesions. OTHER: No other significant finding. IMPRESSION: POSSIBLE MILD ILEUS. NO OBSTRUCTIVE PATTERN. TECHNICAL DOCUMENTATION: JOB ID: [id number] [employer]- All Rights Reserved
== END ==
LOC: OD 12:51
PROVIDERS: ATTEND Physician Assistant
DX: I12.9 Hypertensive chronic kidney disease with stage 1 through stage 4 chronic kidney disease, or unspecified chronic kidney disease (principal); N18.3 Chronic kidney disease, stage 3 (moderate); E11.9 Type 2 diabetes mellitus without complications; K59.01 Slow transit constipation
CPT/HCPCS: 36415; 74022; 80053; 82570; 84156; 85027

== ENCOUNTER → 2017-04-05 | Outpatient (CLI) | payer BC, MEDICAID ==
[2017-04-05 16:02] LABS: ABSOLUTE BASOPHILS # (AUTO) 0.1 10^3/uL (0.0-0.2); ABSOLUTE LYMPHOCYTES (AUTO) 1.3 10^3/uL (0.5-4.7); ABSOLUTE MONOCYTES (AUTO) 0.3 10^3/uL (0.1-1.4); ABSOLUTE NEUT (AUTO) 12.3 10^3/uL (1.7-8.2); BASOPHILS % (AUTO) 0.6 % (0-2); HEMATOCRIT 44.7 % (36.0-47.0); HEMOGLOBIN 15.8 g/dL (12.0-15.5); MEAN CORPUSCULAR HEMOGLOBIN 31.5 pg (27.0-33.4); MEAN CORPUSCULAR HGB CONC 35.3 g/dL (32.0-36.0); MEAN CORPUSCULAR VOLUME 89 fl (80-97); PLATELET COUNT 557 10^3/uL (150-450); RED BLOOD COUNT 5.01 10^6/uL (3.72-5.28); RED CELL DISTRIBUTION WIDTH 13.9 % (11.5-14.0); SEGMENTED NEUTROPHILS % (AUTO) 88.4 % (42-78); TOTAL CELLS COUNTED % (AUTO) 100 %; WHITE BLOOD COUNT 13.9 10^3/uL (4.0-10.5)
[2017-04-05 16:29] LABS: ALANINE AMINOTRANSFERASE 27 U/L (9-52); ALBUMIN 4.5 g/dL (3.5-5.0); ALKALINE PHOSPHATASE 124 U/L (38-126); ANION GAP 10 (5-19); ASPARTATE AMINO TRANSFERASE 25 U/L (14-36); BILIRUBIN,DIRECT 0.3 mg/dL (0.0-0.4); BILIRUBIN,TOTAL 0.3 mg/dL (0.2-1.3); BLOOD UREA NITROGEN 18 mg/dL (7-20); CALCIUM 10.1 mg/dL (8.4-10.2); CARBON DIOXIDE 28 mmol/L (22-30); CHLORIDE 86 mmol/L (98-107); GLUCOSE 166 mg/dL (75-110); POTASSIUM 4.3 mmol/L (3.6-5.0); SODIUM 124.2 mmol/L (137-145); TOTAL PROTEIN 7.1 g/dL (6.3-8.2)
== END ==
LOC: LAB 15:33
PROVIDERS: ATTEND Physician Assistant
DX: R10.30 Lower abdominal pain, unspecified (principal)
CPT/HCPCS: 36415; 80053; 83690; 85025

== ENCOUNTER 2017-04-06 13:18 | Inpatient (IN) | payer BC, MEDICAID ==
[~2017-04-06 13:18] MED LIST: AMINOPHYLLINE INJ/PF 250 MG/10 ML SDV IV ONE; REGADENOSON INJ 0.4 MG/5 ML DISP.SYRIN IV ONE
[2017-04-06] MEDS ORDERED: NORMAL SALINE 1000 ML 1,000 ML IV PRN (13:33)
[2017-04-06] MEDS ORDERED: PROMETHAZINE HCL 25 MG TABLET PO PRN (13:33)
[2017-04-06] MEDS ORDERED: ACETAMINOPHEN 325 MG TABLET PO PRN (13:33)
[2017-04-06] MEDS ORDERED: MAG HYDROX/AL HYDROX/SIMETH SUSP 30 ML UDCUP PO PRN (13:33)
[2017-04-06] MEDS ORDERED: DEXTROSE 40% GEL 15 GM TUBE PO PRN ×2 (13:39)
[2017-04-06] MEDS ORDERED: GLUCAGON,HUMAN RECOMB 1 MG INJ IM PRN (13:39)
[2017-04-06] MEDS ORDERED: DEXTROSE 50%-WATER 25 GM/50 ML DISP.SYRIN IV PRN ×2 (13:39)
[2017-04-06] MEDS ORDERED: INSULIN LISPRO 100 UNIT/ML 3 ML VIAL SUBCUT PRN (13:39)
--- NOTE | 2017-04-06 13:58 | PDOC H&P ---
History of Present Illness Admission Date/PCP: 04/06/17 13:18 TYRON WOODALL MD Patient complains of: Nausea vomitingAnd a weakness History of Present Illness: CRISTIANE LOVE is a 61 year old female This is a 61-year-old female with a 3 days history of nausea vomiting and as well as a loose stools came to the office todayWith the follow-up from yesterday visit Patient have a sodium level was 125 yesterday today since the sameAnd the patient CT abdomen pelvis did not show any acute except mild ileusBut patient unable to keep it downNot even her blood pressure medications At this point because of the hyponatremia and intractable nausea and vomiting decided to admit in the hospital for further evaluations Discussed with the patient and the caregiverAnd agree to go to the hospitalPatient also have recently a colonoscopy done at [facility] but no reports available. Patient has significant other medical comorbidity including the coronary disease history of the COPD and history of the chronic kidney disease and a history of the stroke Patient also see outpatients Dr. Mabry recently and have ultrasound of the kidney and vascular ultrasound was done was all stable Past Medical History Cardiac Medical History: Reports: Coronary Artery Disease, Hyperlipidema, Hypertension, Pulmonary Embolism Denies: Myocardial Infarction Pulmonary Medical History: Reports: Asthma, Bronchitis, Chronic Obstructive Pulmonary Disease (COPD), Pneumonia, Sleep Apnea Denies: Tuberculosis Neurological Medical History: Reports: Ischemic CVA Denies: Seizures Endocrine Medical History: Reports: Diabetes Mellitus Type 2 Renal/ Medical History: Reports: Chronic Kidney Disease Malignancy Medical History: Reports: Breast Cancer Malignancy History Note: Thyroid cancer GI Medical History: Reports: Gastroesophageal Reflux Disease Musculoskeltal Medical History: Reports: Arthritis Psychiatric Medical History: Reports: Bipolar Disorder, Depression, General Anxiety Disorder Hematology: Denies: Anemia Past Surgical History Past Surgical History: Reports: Appendectomy, Cardiac Catheterization - stent x 1, Cholecystectomy, Mastectomy - left side, pt states many years ago Social History Information Source: Patient, Relative Lives with: Family Smoking Status: Current Every Day Smoker Frequency of Alcohol Use: None Hx Recreational Drug Use: No Drugs: None Hx Prescription Drug Abuse: No Family History Family History: Reviewed & Not Pertinent Parental Family History Reviewed: Yes Children Family History Reviewed: Yes Sibling(s) Family History Reviewed.: Yes Medication/Allergy Home Medications: Aripiprazole [Abilify 30 mg Tablet] 30 mg PO DAILY 08/28/16 Clopidogrel Bisulfate [Plavix 75 mg Tablet] 75 mg PO DAILY 08/28/16 Fenofibrate 160 mg PO DAILY 08/28/16 Hydroxyzine HCl [Atarax 25 mg Tablet] 25 mg PO DAILY 08/28/16 Levocetirizine Dihydrochloride [Xyzal] 5 mg PO QPM 08/28/16 Lidocaine [Lidoderm 5% (700 mg) Transdermal Patch] 1 patch TOP DAILY PRN Liothyronine Sodium [Cytomel 25 Mcg Tablet] 25 mcg PO QAM 08/28/16 Mirtazapine [Remeron] 30 mg PO QHS 08/28/16 Quetiapine Fumarate [Seroquel 100 mg Tablet] 100 mg PO QHS 08/28/16 Rosuvastatin Calcium [Crestor] 40 mg PO DAILY 08/28/16 Thyroid (Pork) [Harmony Thyroid 60 mg Tablet] 60 mg PO DAILY 08/28/16 Venlafaxine HCl [Effexor Xr] 150 mg PO BID 08/28/16 Nifedipine [Procardia XL 30 mg Tablet] 60 mg PO Q12 #60 tab.er.24 09/02/16 Albuterol Sulfate [Albuterol Sulfate 2.5mg/3 mL] 2 puff IH PRN PRN 02/23/17 Aspirin [Ecotrin] 81 mg PO DAILY 02/23/17 Fluticasone/Salmeterol [Advair 250-50 Diskus 14 Dose/Diskus] 2 inh IH PRN PRN Metoprolol Tartrate [Lopressor 25 mg Tablet] 37.5 mg PO Q12 02/23/17 Multivitamin [Daily Multiple Vitamin] 1 each PO DAILY 02/23/17 Allergies/Adverse Reactions: codeine Allergy (Verified 03/03/17 06:28) Itching latex Allergy (Verified 03/03/17 06:28) Hives morphine [Morphine] Allergy (Verified 03/03/17 06:28) Itching nalbuphine [From Nubain] Allergy (Verified 03/03/17 06:28) Itching plastic tape Allergy (Uncoded 03/03/17 06:28) Itching Review of Systems All systems: as per PMH Constitutional: PRESENT: weakness. ABSENT: chills, fever(s), headache(s), weight gain, weight loss Eyes: ABSENT: visual disturbances Ears: ABSENT: hearing changes Cardiovascular: ABSENT: chest pain, dyspnea on exertion, edema, orthropnea, palpitations Respiratory: PRESENT: cough. ABSENT: hemoptysis Gastrointestinal: PRESENT: abdominal pain, diarrhea, nausea, vomiting. ABSENT: constipation, hematemesis, hematochezia Genitourinary: ABSENT: dysuria, hematuria Musculoskeletal: ABSENT: joint swelling Integumentary: ABSENT: rash, wounds Neurological: ABSENT: abnormal gait, abnormal speech, confusion, dizziness, focal weakness, syncope Psychiatric: ABSENT: anxiety, depression, homidical ideation, suicidal ideation Endocrine: ABSENT: cold intolerance, heat intolerance, menstrual abnormalities, polydipsia, polyuria Hematologic/Lymphatic: ABSENT: easy bleeding, easy bruising, lymphadenopathy Physical Exam General appearance: PRESENT: no acute distress, well-developed, well-nourished Head exam: PRESENT: atraumatic, normocephalic Eye exam: PRESENT: conjunctiva pink, EOMI, PERRLA. ABSENT: scleral icterus Ear exam: PRESENT: normal external ear exam Mouth exam: PRESENT: dry mucosa, moist, tongue midline Neck exam: PRESENT: full ROM. ABSENT: carotid bruit, JVD, lymphadenopathy, thyromegaly Respiratory exam: PRESENT: clear to auscultation nuvia Cardiovascular exam: PRESENT: RRR. ABSENT: diastolic murmur, rubs, systolic murmur Pulses: PRESENT: normal dorsalis pedis pul, +2 pedal pulses bilateral Vascular exam: PRESENT: normal capillary refill GI/Abdominal exam: PRESENT: normal bowel sounds, soft. ABSENT: distended, guarding, mass, organolmegaly, rebound, tenderness Rectal exam: PRESENT: deferred Extremities exam: ABSENT: pedal edema Musculoskeletal exam: PRESENT: ambulatory Neurological exam: PRESENT: alert, awake, oriented to person, oriented to place , oriented to time, oriented to situation, CN II-XII grossly intact. ABSENT: motor sensory deficit Psychiatric exam: PRESENT: appropriate affect, normal mood. ABSENT: homicidal ideation, suicidal ideation Skin exam: PRESENT: dry, intact, warm. ABSENT: cyanosis, rash Assessment & Plan - Diagnosis (1) Intractable nausea and vomiting Qualifiers: Vomiting type: unspecified Qualified Code(s): R11.2 - Nausea with vomiting , unspecified Is this a current diagnosis for this admission?: Yes Plan: Start the patient on the liquid diets and IV Zofran and Phenergan as needed and consult Dr. Coombs for further evaluation (2) Diarrhea Qualifiers: Diarrhea type: unspecified type Qualified Code(s): R19.7 - Diarrhea, unspecified Is this a current diagnosis for this admission?: Yes Plan: Will get the patient's stool for the C. difficile and a culture (3) Dehydration Is this a current diagnosis for this admission?: Yes Plan: Start the patient on IV fluid (4) Hyponatremia Is this a current diagnosis for this admission?: Yes Plan: Most likely recently a dehydration's we will start the patient on IV fluid and continues to monitor (5) Acute renal failure Qualifiers: Acute renal failure type: unspecified Qualified Code(s): N17.9 - Acute kidney failure, unspecified Is this a current diagnosis for this admission?: Yes Plan: Patient have underlying chronic kidney disease with worsening with the recent dehydration's (6) Bipolar disorder Qualifiers: Active/Remission status: currently active Is this a current diagnosis for this admission?: Yes Plan: Currently continues to current medications (7) CAD (coronary artery disease) Qualifiers: Coronary Disease-Associated Artery/Lesion type: [place] artery Associated angina: without angina Is this a current diagnosis for this admission?: Yes Plan: We will get the EKGShe is currently denied any chest pain or any other symptoms (8) CVA (cerebral vascular accident) Qualifiers: CVA mechanism: unspecified Qualified Code(s): I63.9 - Cerebral infarction, unspecified Is this a current diagnosis for this admission?: Yes Plan: Currently stable (10) HLD (hyperlipidemia) Qualifiers: Hyperlipidemia type: pure hypercholesterolemia Qualified Code(s): E78.00 - Pure hypercholesterolemia, unspecified (11) HTN (hypertension) Qualifiers: Hypertension type: essential hypertension Qualified Code(s): I10 - Essential (primary) hypertension Is this a current diagnosis for this admission?: Yes Plan: Will give her some IV hydralazine while patient unable to keep p.o. down (12) COPD (chronic obstructive pulmonary disease) Qualifiers: COPD type: unspecified COPD Qualified Code(s): J44.9 - Chronic obstructive pulmonary disease, unspecified Is this a current diagnosis for this admission?: Yes Plan: Continues on DuoNeb nebulizer - Time Time Spent: 30 to 50 Minutes Medications reviewed and adjusted accordingly: Yes Anticipated discharge: Home Within: Other - Inpatient Certification Medical Necessity: Need Close Monitoring Due to Risk of Patient Decompensation, Need For IV Fluids Post Hospital Care: D/C Due Diligence Coordinator Documentation - Plan Summary Plan Summary: Discussed with the patient and the caregiver admitted in the telemetry bed see other MD orders
[2017-04-06] MEDS ORDERED: HYDRALAZINE HCL INJ/PF 20 MG/1 ML SDV IV PRN (14:00)
[2017-04-06] MEDS: ONDANSETRON HCL INJ/PF 4 MG/2 ML SDV IV PRN ×2 (14:49→19:59)
[2017-04-06 15:57] LABS: CREATINE KINASE MB 4.94 ng/mL (<4.55); TROPONIN I 0.02 ng/mL
[2017-04-06] MEDS ORDERED: ENOXAPARIN SODIUM INJ 30 MG/0.3 ML DISP.SYRIN SUBCUT ONE (16:00)
[2017-04-06] MEDS: IPRATROPIUM/ALBUTEROL 0.5-2.5 MG/3 ML AMPUL NEB SCH ×2 (16:21→20:52)
--- NOTE | 2017-04-06 16:56 | RADIOLOGY REPORT (SQ) ---
EXAM DESCRIPTION: CHEST PA/LAT COMPLETED DATE/TIME: 04/06/2017 4:47 pm REASON FOR STUDY: cough COMPARISON: Two-view chest 08/28/2016 EXAM PARAMETERS: NUMBER OF VIEWS: two views TECHNIQUE: Digital Frontal and Lateral radiographic views of the chest acquired. RADIATION DOSE: NA LIMITATIONS: none FINDINGS: LUNGS AND PLEURA: No opacities, masses or pneumothorax. No pleural effusion. MEDIASTINUM AND HILAR STRUCTURES: No masses or contour abnormalities. HEART AND VASCULAR STRUCTURES: Heart normal size. No evidence for failure. BONES: No acute findings. HARDWARE: Old left mastectomy with breast implant. Surgical clips in the lower neck likely post thyr oidectomy OTHER: No other significant finding. IMPRESSION: NO SIGNIFICANT RADIOGRAPHIC FINDING IN THE CHEST. TECHNICAL DOCUMENTATION: JOB ID: [id number]- All Rights Reserved
[2017-04-06] MEDS ORDERED: LEVOFLOXACIN 500 MG TABLET PO ONE ×2 (17:22→22:00)
--- NOTE | 2017-04-06 17:24 | PDOC CONSULTATION ---
Consultation Consult Date: 04/06/17 Consult reason:: Acute hyponatremia, GELY on CKD. 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 She as had a partial BM since being admitted here.She gives a h/o of hacking cough with yellow green expectoration x 1 week. She has some vague body pains. No hemoptysis but admits to intermittent chills. No history to indicate Influenza. She admits to heavy fluid intake as her mouth is always dry. Past Medical History Cardiac Medical History: Reports: Coronary Artery Disease, Hyperlipidemia, Hypertension-primary, Pulmonary Embolism Denies: Myocardial Infarction Pulmonary Medical History: Reports: Asthma, Bronchitis, Chronic Obstructive Pulmonary Disease (COPD), Pneumonia, Sleep Apnea Denies: Tuberculosis Neurological Medical History: Reports: Ischemic CVA Denies: Seizures Endocrine Medical History: Reports: Diabetes Mellitus Type 2 Renal/ Medical History: Reports: Chronic Kidney Disease Stage III Malignancy Medical History: Reports: Breast Cancer, Other - Thyroid GI Medical History: Reports: Gastroesophageal Reflux Disease Musculoskeltal Medical History: Reports: Arthritis Psychiatric Medical History: Reports: Bipolar Disorder, Depression, General Anxiety Disorder Past Surgical History Past Surgical History: Reports: Appendectomy, Cardiac Catheterization - stent x 1, Cholecystectomy, Mastectomy - left side, pt states many years ago Social History Lives with: Family Smoking Status: Current Every Day Smoker Cigarettes Packs Per Day: 1 Number of Years Smokin Last Time Smoked: 1345 Frequency of Alcohol Use: None Hx Recreational Drug Use: No Drugs: None Hx Prescription Drug Abuse: No Family History Parental Family History Reviewed: Yes - negative for ckd Children Family History Reviewed: No Sibling(s) Family History Reviewed.: No Medication/Allergy Home Medications: Amlodipine Besylate [Norvasc 2.5 mg Tablet] 2.5 mg PO Q12 04/06/17 Aripiprazole [Abilify 30 mg Tablet] 30 mg PO DAILY 04/06/17 Atorvastatin Calcium [Lipitor 10 mg Tablet] 10 mg PO QHS 04/06/17 Clopidogrel Bisulfate [Plavix 75 mg Tablet] 75 mg PO DAILY 04/06/17 Docusate Sodium [Colace 100 mg Capsule] 100 mg PO BID 04/06/17 Ezetimibe [Zetia 10 mg Tablet] 10 mg PO DAILY 04/06/17 Fenofibrate 160 mg PO DAILY 04/06/17 Hydroxyzine HCl [Atarax 50 mg Tablet] 100 mg PO QID 04/06/17 Levocetirizine Dihydrochloride [Xyzal] 5 mg PO QHS 04/06/17 Lisinopril [Prinivil 10 mg Tablet] 10 mg PO QHS 04/06/17 Metoprolol Tartrate [Lopressor 25 mg Tablet] 25 mg PO Q12 04/06/17 Mirtazapine [Remeron] 30 mg PO QHS 04/06/17 Ondansetron HCl [Zofran 4 mg Tablet] 4 mg PO DAILY 04/06/17 Promethazine HCl [Phenergan] 12.5 mg [place] BIDP PRN 04/06/17 Quetiapine Fumarate [Seroquel] 100 mg PO QHS 04/06/17 Thyroid,Pork [Anderson Thyroid] 90 mg PO Q6AM 04/06/17 Venlafaxine HCl [Effexor Xr] 150 mg PO BID 04/06/17 Allergies/Adverse Reactions: codeine Allergy (Verified 03/03/17 06:28) Itching latex Allergy (Verified 03/03/17 06:28) Hives liothyronine [From Cytomel] Allergy (Verified 04/06/17 15:32) Shortness of Breath morphine [Morphine] Allergy (Verified 03/03/17 06:28) Itching nalbuphine [From Nubain] Allergy (Verified 03/03/17 06:28) Itching hydrocodone Adverse Reaction (Mild, Verified 04/06/17 15:31) Rash plastic tape Allergy (Uncoded 03/03/17 06:28) Itching Review of Systems Constitutional: PRESENT: chills, fatigue, fever(s), weakness. ABSENT: anorexia , headache(s), night sweats Nose, Mouth, and Throat: ABSENT: mouth pain, sore throat Cardiovascular: PRESENT: dyspnea on exertion. ABSENT: chest pain, edema, orthropnea Gastrointestinal: PRESENT: abdominal pain, bloating, constipation, nausea. ABSENT: diarrhea, hematemesis, hematochezia, melena Genitourinary: ABSENT: dysuria, hematuria Integumentary: ABSENT: diaphoresis, erythema, pruritus Neurological: ABSENT: abnormal speech, confusion, convulsions, dizziness, focal weakness Endocrine: ABSENT: heat intolerance, polydipsia Hematologic/Lymphatic: ABSENT: easy bruising, lymphadenopathy Physical Exam Vital Signs: Temp Pulse Resp BP Pulse Ox 98.1 F 97 18 176/80 H 93 04/06/17 15:37 04/06/17 15:37 04/06/17 15:37 04/06/17 15:37 04/06/17 15:37 Intake & Output 04/05/17 04/06/17 04/07/17 06:59 06:59 06:59 Weight 74.389 kg General appearance: PRESENT: no acute distress Eye exam: PRESENT: conjunctival injection, EOMI, PERRLA. ABSENT: conjunctiva pink, conjunctiva pale, scleral icterus Ear exam: PRESENT: normal external ear exam Mouth exam: PRESENT: neck supple. ABSENT: moist Neck exam: ABSENT: lymphadenopathy, meningismus, tenderness, thyromegaly, tracheal deviation Respiratory exam: PRESENT: clear to auscultation nuvia, crackles - scattered, symmetrical. ABSENT: rhonchi - scattered Cardiovascular exam: PRESENT: +S1, +S2 GI/Abdominal exam: PRESENT: normal bowel sounds, soft. ABSENT: distended, firm , guarding, organomegaly, tenderness Extremities exam: ABSENT: pedal edema Neurological exam: PRESENT: awake, oriented to person, oriented to place, oriented to time Psychiatric exam: PRESENT: appropriate affect Skin exam: PRESENT: dry. ABSENT: cyanosis, mottled Results Laboratory Results: 04/06/17 04/06/17 04/06/17 14:37 14:37 14:37 Serum Osmolality Cancelled Lipase 148.8 TSH 80.70 H 04/06/17 04/06/17 14:37 14:37 Creatine Kinase 148 H CK-MB (CK-2) 4.94 H Troponin I 0.020 Impressions: Chest X-Ray 04/06/17 13:37 IMPRESSION: NO SIGNIFICANT RADIOGRAPHIC FINDING IN THE CHEST. Assessment & Plan - Diagnosis (1) Acute renal failure Qualifiers: Acute renal failure type: unspecified Qualified Code(s): N17.9 - Acute kidney failure, unspecified Is this a current diagnosis for this admission?: Yes Plan: Dehydration is likely the main culprit.Start IVF .Monitor. (2) COPD (chronic obstructive pulmonary disease) Qualifiers: COPD type: unspecified COPD Qualified Code(s): J44.9 - Chronic obstructive pulmonary disease, unspecified Is this a current diagnosis for this admission?: Yes Plan: However given her hyponatremia likely additional cause could be a atypical infection.Start appropriate antibiotics. (3) Hyponatremia Is this a current diagnosis for this admission?: Yes Plan: Differentials includes - Dehydration, excessive fluid intake and ? atypical chest infection. Await further labs. OK with current fluid regimen and recommend po fluid restriction. Will order abx. (4) Intractable nausea and vomiting Qualifiers: Vomiting type: unspecified Qualified Code(s): R11.2 - Nausea with vomiting , unspecified Is this a current diagnosis for this admission?: Yes Plan: Treat symptomatically.treat GI issues. (5) Bipolar disorder Qualifiers: Active/Remission status: currently active Is this a current diagnosis for this admission?: Yes Plan: On anti psychotics.Stable now. (6) HTN (hypertension) Qualifiers: Hypertension type: essential hypertension Qualified Code(s): I10 - Essential (primary) hypertension Is this a current diagnosis for this admission?: Yes Plan: Uncontrolled.She was not taking any medications because of her nausea and vomiting. See response to current meds.
[2017-04-06] MEDS: LANSOPRAZOLE 15 MG TAB.RAP.DR PO SCH (17:34)
--- NOTE | 2017-04-06 18:50 | PDOC CONSULTATION ---
Consultation Consult Date: 04/06/17 Attending physician:: LIZZETTE JEFFREY Consult reason:: nausea and vomiting. epigastric pain History of Present Illness Admission Date/PCP: 04/06/17 13:18 TYRON WOODALL MD History of Present Illness: I have been asked to see this patient by Dr Woodall admitted directly from his office has been having nausea and not able to take orak intake due to concurrent epigastric discomfort patient apparently had a colonoscopy with hemorrhoids banding at [place] patient denies any weight loss there is some early satiety no actual dysphagia or odynophagia patient states no melena there is no blood in her stools patient being seen by nephrology too Dr Woodall has requested an EGD to rule out for possible peptic ulcer disease she is currently getting cardiac enzymes done to rule out possible VT since cardiac issues could present similarly to GI issues Past Medical History Cardiac Medical History: Reports: Coronary Artery Disease, Hyperlipidema, Hypertension, Pulmonary Embolism Denies: Myocardial Infarction Pulmonary Medical History: Reports: Asthma, Bronchitis, Chronic Obstructive Pulmonary Disease (COPD), Pneumonia, Sleep Apnea Denies: Tuberculosis Neurological Medical History: Reports: Ischemic CVA Denies: Seizures Endocrine Medical History: Reports: Diabetes Mellitus Type 2 Renal/ Medical History: Reports: Chronic Kidney Disease Malignancy Medical History: Reports: Breast Cancer, Other - Thyroid GI Medical History: Reports: Gastroesophageal Reflux Disease Musculoskeltal Medical History: Reports: Arthritis Psychiatric Medical History: Reports: Bipolar Disorder, Depression, General Anxiety Disorder Hematology: Denies: Anemia Past Surgical History Past Surgical History: Reports: Appendectomy, Cardiac Catheterization - stent x 1, Cholecystectomy, Mastectomy - left side, pt states many years ago Social History Lives with: Family Smoking Status: Current Every Day Smoker Cigarettes Packs Per Day: 1 Number of Years Smokin Last Time Smoked: 1345 Frequency of Alcohol Use: None Hx Recreational Drug Use: No Drugs: None Hx Prescription Drug Abuse: No Family History Family History: Reviewed & Not Pertinent Parental Family History Reviewed: Yes Children Family History Reviewed: Unknown Sibling(s) Family History Reviewed.: Unknown Medication/Allergy Home Medications: Amlodipine Besylate [Norvasc 2.5 mg Tablet] 2.5 mg PO Q12 04/06/17 Aripiprazole [Abilify 30 mg Tablet] 30 mg PO DAILY 04/06/17 Atorvastatin Calcium [Lipitor 10 mg Tablet] 10 mg PO QHS 04/06/17 Clopidogrel Bisulfate [Plavix 75 mg Tablet] 75 mg PO DAILY 04/06/17 Docusate Sodium [Colace 100 mg Capsule] 100 mg PO BID 04/06/17 Ezetimibe [Zetia 10 mg Tablet] 10 mg PO DAILY 04/06/17 Fenofibrate 160 mg PO DAILY 04/06/17 Hydroxyzine HCl [Atarax 50 mg Tablet] 100 mg PO QID 04/06/17 Levocetirizine Dihydrochloride [Xyzal] 5 mg PO QHS 04/06/17 Lisinopril [Prinivil 10 mg Tablet] 10 mg PO QHS 04/06/17 Metoprolol Tartrate [Lopressor 25 mg Tablet] 25 mg PO Q12 04/06/17 Mirtazapine [Remeron] 30 mg PO QHS 04/06/17 Ondansetron HCl [Zofran 4 mg Tablet] 4 mg PO DAILY 04/06/17 Promethazine HCl [Phenergan] 12.5 mg OK BIDP PRN 04/06/17 Quetiapine Fumarate [Seroquel] 100 mg PO QHS 04/06/17 Thyroid,Pork [[place] Thyroid] 90 mg PO Q6AM 04/06/17 Venlafaxine HCl [Effexor Xr] 150 mg PO BID 04/06/17 Allergies/Adverse Reactions: codeine Allergy (Verified 03/03/17 06:28) Itching latex Allergy (Verified 03/03/17 06:28) Hives liothyronine [From Cytomel] Allergy (Verified 04/06/17 15:32) Shortness of Breath morphine [Morphine] Allergy (Verified 03/03/17 06:28) Itching nalbuphine [From Nubain] Allergy (Verified 03/03/17 06:28) Itching hydrocodone Adverse Reaction (Mild, Verified 04/06/17 15:31) Rash plastic tape Allergy (Uncoded 03/03/17 06:28) Itching Review of Systems Constitutional: ABSENT: fever(s), headache(s), night sweats, weakness Eyes: ABSENT: visual disturbances Ears: ABSENT: hearing changes Nose, Mouth, and Throat: ABSENT: mouth pain, sore throat Cardiovascular: ABSENT: edema, orthropnea, palpitations Respiratory: ABSENT: dyspnea, hemoptysis Gastrointestinal: PRESENT: nausea, vomiting. ABSENT: coffee ground emesis, diarrhea, hematochezia Genitourinary: ABSENT: dysuria, hematuria Musculoskeletal: ABSENT: deformity, joint swelling Integumentary: ABSENT: lesions Neurological: ABSENT: focal weakness, syncope, tingling, tremor(s), vertigo Endocrine: ABSENT: polydipsia, polyphagia, polyuria Hematologic/Lymphatic: ABSENT: easy bruising Physical Exam Vital Signs: Temp Pulse Resp BP Pulse Ox 98.1 F 97 20 176/80 H 9 L 04/06/17 15:37 04/06/17 16:21 04/06/17 16:21 04/06/17 15:37 04/06/17 16:21 Intake & Output 04/05/17 04/06/17 04/07/17 06:59 06:59 06:59 Weight 74.389 kg General appearance: PRESENT: mild distress, well-developed, well-nourished Head exam: PRESENT: atraumatic, normocephalic Eye exam: PRESENT: EOMI, PERRLA. ABSENT: nystagmus, periorbital swelling, scleral icterus Mouth exam: PRESENT: moist, neck supple Throat exam: ABSENT: tonsillar exudate, tonsillogmegaly Respiratory exam: PRESENT: symmetrical. ABSENT: tachypnea, unlabored, wheezes Cardiovascular exam: PRESENT: RRR, +S1, +S2 GI/Abdominal exam: PRESENT: soft. ABSENT: rebound, rigid, tenderness Extremities exam: ABSENT: joint swelling Musculoskeletal exam: PRESENT: full ROM Neurological exam: PRESENT: alert, awake, oriented to time, oriented to situation, CN II-XII grossly intact Psychiatric exam: PRESENT: appropriate affect Focused psych exam: ABSENT: restlessness Skin exam: PRESENT: normal color. ABSENT: mottled, pallor, urticaria, vesicles Results Laboratory Results: 04/06/17 04/06/17 04/06/17 14:37 14:37 14:37 Serum Osmolality Cancelled Lipase 148.8 TSH 80.70 H 04/06/17 16:20 Serum Osmolality 261 L Lipase TSH 04/06/17 04/06/17 14:37 14:37 Creatine Kinase 148 H CK-MB (CK-2) 4.94 H Troponin I 0.020 Impressions: Chest X-Ray 04/06/17 13:37 IMPRESSION: NO SIGNIFICANT RADIOGRAPHIC FINDING IN THE CHEST. Assessment & Plan - Diagnosis (1) Nausea & vomiting Plan: patient is s/p cholecytectomy will get GI work up to include EGD rule out for possible peptic ulcer disease will schedule for the patient start PPI if cardiac enzymes are negative, can proceed with EGD in the am further recommendations to follow (2) Diarrhea Qualifiers: Diarrhea type: unspecified type Qualified Code(s): R19.7 - Diarrhea, unspecified Is this a current diagnosis for this admission?: Yes Plan: recently had colonoscopy done at [place] will need to get results see if biopsies are done check for C.Diff - Time Time Spent: 50 to 70 Minutes
[2017-04-06 19:44] LABS: FREE T3 1.37 pg/mL (2.77-5.27); FREE T4 (FREE THYROXINE) 0.33 ng/dL (0.78-2.19)
[2017-04-06] MEDS: AMLODIPINE BESYLATE 2.5 MG TABLET PO SCH (21:16)
[2017-04-06] MEDS: METOPROLOL TARTRATE 25 MG TABLET PO SCH (21:16)
[2017-04-06 22:01] LABS: APPEARANCE,URINE CLEAR; BILIRUBIN,URINE NEGATIVE (NEGATIVE); COLOR,URINE YELLOW; GLUCOSE, URINE 50 mg/dL (NEGATIVE); KETONES,URINE NEGATIVE (NEGATIVE); LEUKOCYTE ESTERASE,URINE NEGATIVE (NEGATIVE); NITRITE,URINE NEGATIVE (NEGATIVE); PROTEIN,URINE >=500 mg/dL (NEGATIVE); URINE SPECIFIC GRAVITY 1.008; UROBILINOGEN,URINE NEGATIVE mg/dL (<2.0)
--- NOTE | 2017-04-06 22:44 | EKG REPORT ---
SEVERITY:- BORDERLINE ECG - SINUS RHYTHM PROBABLE LEFT ATRIAL ABNORMALITY BORDERLINE PROLONGED QT INTERVAL : Confirmed by: Emilio Clay 06-Apr-2017 22:44:09
[2017-04-06 23:05] LABS: CREATINE KINASE MB 4.55 ng/mL (<4.55); TROPONIN I 0.021 ng/mL
[2017-04-07] MEDS: LISINOPRIL 10 MG TABLET PO SCH ×2 (00:33→22:03)
[2017-04-07] MEDS: QUETIAPINE FUMARATE 100 MG TABLET PO SCH ×2 (00:34→22:03)
[2017-04-07] MEDS: CETIRIZINE 5 MG TABLET PO SCH ×2 (00:34→22:04)
[2017-04-07] MEDS: ATORVASTATIN CALCIUM 10 MG TABLET PO SCH ×2 (00:34→22:04)
[2017-04-07] MEDS: MIRTAZAPINE 15 MG TABLET PO SCH ×2 (00:35→22:03)
[2017-04-07] MEDS: ONDANSETRON HCL INJ/PF 4 MG/2 ML SDV IV PRN ×3 (00:36→12:53)
[2017-04-07 05:18] LABS: ALANINE AMINOTRANSFERASE 24 U/L (9-52); ALBUMIN 3.7 g/dL (3.5-5.0); ALKALINE PHOSPHATASE 103 U/L (38-126); ANION GAP 8 (5-19); ASPARTATE AMINO TRANSFERASE 41 U/L (14-36); BILIRUBIN,DIRECT 0.2 mg/dL (0.0-0.4); BILIRUBIN,TOTAL 0.2 mg/dL (0.2-1.3); BLOOD UREA NITROGEN 17 mg/dL (7-20); CALCIUM 8.7 mg/dL (8.4-10.2); CARBON DIOXIDE 27 mmol/L (22-30); CHLORIDE 93 mmol/L (98-107); CREATINE KINASE 107 U/L (30-135); GLUCOSE 101 mg/dL (75-110); POTASSIUM 3.1 mmol/L (3.6-5.0); SODIUM 128.4 mmol/L (137-145); TOTAL PROTEIN 6.2 g/dL (6.3-8.2)
[2017-04-07 05:30] LABS: CREATINE KINASE MB 3.25 ng/mL (<4.55); TROPONIN I 0.023 ng/mL
[2017-04-07 05:47] LABS: ABSOLUTE BASOPHILS # (AUTO) 0.1 10^3/uL (0.0-0.2); ABSOLUTE EOSINOPHILS # (AUTO) 0.1 10^3/uL (0.0-0.6); ABSOLUTE LYMPHOCYTES (AUTO) 2.5 10^3/uL (0.5-4.7); ABSOLUTE MONOCYTES (AUTO) 0.6 10^3/uL (0.1-1.4); ABSOLUTE NEUT (AUTO) 8.5 10^3/uL (1.7-8.2); BASOPHILS % (AUTO) 0.9 % (0-2); EOSINOPHILS % (AUTO) 0.4 % (0-6); HEMATOCRIT 45.8 % (36.0-47.0); HEMOGLOBIN 16.2 g/dL (12.0-15.5); LYMPHOCYTES % (AUTO) 21.2 % (13-45); MEAN CORPUSCULAR HEMOGLOBIN 31.4 pg (27.0-33.4); MEAN CORPUSCULAR HGB CONC 35.5 g/dL (32.0-36.0); MEAN CORPUSCULAR VOLUME 88 fl (80-97); MONOCYTES % (AUTO) 5.3 % (3-13); PLATELET COUNT 437 10^3/uL (150-450); RED BLOOD COUNT 5.18 10^6/uL (3.72-5.28); SEGMENTED NEUTROPHILS % (AUTO) 72.2 % (42-78); TOTAL CELLS COUNTED % (AUTO) 100 %; WHITE BLOOD COUNT 11.7 10^3/uL (4.0-10.5)
[2017-04-07] MEDS ORDERED: THYROID PORK 180 MG PO SCH (06:00)
[2017-04-07] MEDS ORDERED: THYROID PORK 90 MG PO SCH (06:00)
[2017-04-07] MEDS: THYROID (PORK) 60 MG TABLET PO SCH (06:09)
[2017-04-07] MEDS: LANSOPRAZOLE 15 MG TAB.RAP.DR PO SCH (06:09)
[2017-04-07] MEDS: IPRATROPIUM/ALBUTEROL 0.5-2.5 MG/3 ML AMPUL NEB SCH ×3 (08:09→19:30)
--- NOTE | 2017-04-07 09:08 | PDOC PROGRESS REPORT ---
Subjective Progress Note for:: 04/07/17 Subjective:: Patient is currently doing fair Patient still with nausea but no diarrhea anymore This is scheduled for endoscopy today Patient seen by cardiology because patient was complaining of chest pain yesterday but all workup is stable Patient also seen by Dr. Mabry Reason For Visit: N/V,DEHYDRATION,HYPONATREMIA,RENAL FAILURE Physical Exam Vital Signs: Temp Pulse Resp BP Pulse Ox 98.5 F 94 18 151/78 H 95 04/07/17 07:52 04/07/17 07:52 04/07/17 07:52 04/07/17 07:52 04/07/17 07:52 Intake & Output 04/06/17 04/07/17 04/08/17 06:59 06:59 06:59 Intake Total 1520 Output Total 1700 Balance -180 Weight 76.9 kg General appearance: PRESENT: no acute distress, well-developed, well-nourished Head exam: PRESENT: atraumatic, normocephalic Eye exam: PRESENT: conjunctiva pink, EOMI, PERRLA. ABSENT: scleral icterus Ear exam: PRESENT: normal external ear exam Mouth exam: PRESENT: moist, tongue midline Neck exam: PRESENT: full ROM. ABSENT: carotid bruit, JVD, lymphadenopathy, thyromegaly Respiratory exam: PRESENT: clear to auscultation nuvia Cardiovascular exam: PRESENT: RRR. ABSENT: diastolic murmur, rubs, systolic murmur Pulses: PRESENT: normal dorsalis pedis pul, +2 pedal pulses bilateral Vascular exam: PRESENT: normal capillary refill GI/Abdominal exam: PRESENT: normal bowel sounds, soft. ABSENT: distended, guarding, mass, organolmegaly, rebound, tenderness Rectal exam: PRESENT: deferred Musculoskeletal exam: PRESENT: ambulatory Neurological exam: PRESENT: alert, awake, oriented to person, oriented to place , oriented to time, oriented to situation, CN II-XII grossly intact. ABSENT: motor sensory deficit Psychiatric exam: PRESENT: appropriate affect, normal mood. ABSENT: homicidal ideation, suicidal ideation Skin exam: PRESENT: dry, intact, warm. ABSENT: cyanosis, rash Results Laboratory Results: 04/07/17 04:54 04/07/17 04:54 04/06/17 04/06/17 04/06/17 14:37 14:37 14:37 WBC RBC Hgb Hct MCV MCH MCHC RDW Plt Count Seg Neutrophils % Lymphocytes % Monocytes % Eosinophils % Basophils % Absolute Neutrophils Absolute Lymphocytes Absolute Monocytes Absolute Eosinophils Absolute Basophils Sodium Potassium Chloride Carbon Dioxide Anion Gap BUN Creatinine Est GFR ( Amer) Est GFR (Non-Af Amer) Glucose Serum Osmolality Cancelled Calcium Total Bilirubin AST ALT Alkaline Phosphatase Total Protein Albumin Lipase 148.8 TSH 80.70 H Free T4 Free T3 pg/mL Urine Color Urine Appearance Urine pH Ur Specific [place] Urine Protein Urine Glucose (UA) Urine Ketones Urine Blood Urine Nitrite Ur Leukocyte Esterase Urine WBC (Auto) Urine RBC (Auto) Urine Osmolality 04/06/17 04/06/17 04/06/17 16:20 16:20 19:30 WBC RBC Hgb Hct MCV MCH MCHC RDW Plt Count Seg Neutrophils % Lymphocytes % Monocytes % Eosinophils % Basophils % Absolute Neutrophils Absolute Lymphocytes Absolute Monocytes Absolute Eosinophils Absolute Basophils Sodium Potassium Chloride Carbon Dioxide Anion Gap BUN Creatinine Est GFR ( Amer) Est GFR (Non-Af Amer) Glucose Serum Osmolality 261 L Calcium Total Bilirubin AST ALT Alkaline Phosphatase Total Protein Albumin Lipase TSH Free T4 0.33 L Free T3 pg/mL 1.37 L Urine Color Urine Appearance Urine pH Ur Specific [place] Urine Protein Urine Glucose (UA) Urine Ketones Urine Blood Urine Nitrite Ur Leukocyte Esterase Urine WBC (Auto) Urine RBC (Auto) Urine Osmolality 228 L 04/06/17 04/07/17 04/07/17 19:30 04:54 04:54 WBC 11.7 H RBC 5.18 Hgb 16.2 H Hct 45.8 MCV 88 MCH 31.4 MCHC 35.5 RDW 14.0 Plt Count 437 Seg Neutrophils % 72.2 Lymphocytes % 21.2 Monocytes % 5.3 Eosinophils % 0.4 Basophils % 0.9 Absolute Neutrophils 8.5 H Absolute Lymphocytes 2.5 Absolute Monocytes 0.6 Absolute Eosinophils 0.1 Absolute Basophils 0.1 Sodium 128.4 L Potassium 3.1 L Chloride 93 L Carbon Dioxide 27 Anion Gap 8 BUN 17 Creatinine 1.42 H Est GFR ( Amer) 46 L Est GFR (Non-Af Amer) 38 L Glucose 101 Serum Osmolality Calcium 8.7 Total Bilirubin 0.2 AST 41 H ALT 24 Alkaline Phosphatase 103 Total Protein 6.2 L Albumin 3.7 Lipase TSH Free T4 Free T3 pg/mL Urine Color YELLOW Urine Appearance CLEAR Urine pH 7.0 Ur Specific [place] 1.008 Urine Protein >=500 H Urine Glucose (UA) 50 H Urine Ketones NEGATIVE Urine Blood NEGATIVE Urine Nitrite NEGATIVE Ur Leukocyte Esterase NEGATIVE Urine WBC (Auto) 1 Urine RBC (Auto) 0 Urine Osmolality 04/06/17 04/06/17 04/06/17 14:37 14:37 22:27 Creatine Kinase 148 H 151 H CK-MB (CK-2) 4.94 H Troponin I 0.020 04/06/17 04/07/17 04/07/17 22:27 04:54 04:54 Creatine Kinase 107 CK-MB (CK-2) 4.55 3.25 Troponin I 0.021 0.023 Impressions: Chest X-Ray 04/06/17 13:37 IMPRESSION: NO SIGNIFICANT RADIOGRAPHIC FINDING IN THE CHEST. Assessment & Plan - Diagnosis (1) Intractable nausea and vomiting Qualifiers: Vomiting type: unspecified Qualified Code(s): R11.2 - Nausea with vomiting , unspecified Is this a current diagnosis for this admission?: Yes Plan: Scheduled for the endoscopy today (2) Diarrhea Qualifiers: Diarrhea type: unspecified type Qualified Code(s): R19.7 - Diarrhea, unspecified Is this a current diagnosis for this admission?: Yes Plan: Currently all resolved (3) Dehydration Is this a current diagnosis for this admission?: Yes Plan: Start the patient on IV fluid (4) Hyponatremia Is this a current diagnosis for this admission?: Yes Plan: Currently all improving will get a CT of the chest without contrast today to rule out other etiology (5) Acute renal failure Qualifiers: Acute renal failure type: unspecified Qualified Code(s): N17.9 - Acute kidney failure, unspecified Is this a current diagnosis for this admission?: Yes Plan: Patient have underlying chronic kidney disease with worsening with the recent dehydration's (6) Bipolar disorder Qualifiers: Active/Remission status: currently active Is this a current diagnosis for this admission?: Yes Plan: Currently continues to current medications (7) CAD (coronary artery disease) Qualifiers: Coronary Disease-Associated Artery/Lesion type: [place] artery Associated angina: without angina Is this a current diagnosis for this admission?: Yes Plan: Currently follow with cardiology (8) CVA (cerebral vascular accident) Qualifiers: CVA mechanism: unspecified Qualified Code(s): I63.9 - Cerebral infarction, unspecified Is this a current diagnosis for this admission?: Yes Plan: Currently stable (10) HLD (hyperlipidemia) Qualifiers: Hyperlipidemia type: pure hypercholesterolemia Qualified Code(s): E78.00 - Pure hypercholesterolemia, unspecified (11) HTN (hypertension) Qualifiers: Hypertension type: essential hypertension Qualified Code(s): I10 - Essential (primary) hypertension Is this a current diagnosis for this admission?: Yes Plan: Will give her some IV hydralazine while patient unable to keep p.o. 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
--- NOTE | 2017-04-07 09:15 | EKG REPORT ---
SEVERITY:- BORDERLINE ECG - SINUS RHYTHM BORDERLINE PROLONGED QT INTERVAL : Confirmed by: Emilio Clay 07-Apr-2017 09:14:49
[2017-04-07] MEDS: POTASSI CL 20 MEQ/50 ML RIDER 20 MEQ/50 ML RTUPB IV SCH ×2 (09:23→12:53)
[2017-04-07] MEDS ORDERED: NALOXONE HCL INJ/PF 0.4 MG/1 ML SDV ONE (09:44)
[2017-04-07] MEDS ORDERED: DIPHENHYDRAMINE HCL 50 MG/ML VIAL ONE (09:44)
[2017-04-07] MEDS ORDERED: ONDANSETRON HCL INJ/PF 4 MG/2 ML SDV ONE (09:44)
[2017-04-07] MEDS ORDERED: GLUCAGON,HUMAN RECOMB 1 MG INJ ONE (09:45)
[2017-04-07] MEDS ORDERED: MIDAZOLAM 2 MG/2 ML INJ ONE (09:45)
[2017-04-07] MEDS ORDERED: FLUMAZENIL INJ 0.5 MG/5 ML VIAL ONE (09:45)
[2017-04-07] MEDS ORDERED: FENTANYL CITRATE INJ/PF 100 MCG/2 ML AMPUL ONE (09:45)
[2017-04-07] MEDS ORDERED: EPINEPHRINE INJ 1 MG/10 ML DISP.SYRIN ONE (09:45)
[2017-04-07] MEDS: ARIPIPRAZOLE 5 MG TABLET PO SCH (10:17)
[2017-04-07] MEDS: VENLAFAXINE HCL 75 MG CAP.SR.24H PO SCH (10:18)
[2017-04-07] MEDS: METOPROLOL TARTRATE 25 MG TABLET PO SCH ×2 (10:18→22:03)
[2017-04-07] MEDS: EZETIMIBE 10 MG TABLET PO SCH (10:19)
[2017-04-07] MEDS: LEVOFLOXACIN 250 MG TABLET PO SCH (10:19)
[2017-04-07] MEDS: AMLODIPINE BESYLATE 2.5 MG TABLET PO SCH ×2 (10:19→22:03)
[2017-04-07] MEDS: CLOPIDOGREL BISULFATE 75 MG TABLET PO SCH (10:20)
[2017-04-07] MEDS: ENOXAPARIN SODIUM INJ 30 MG/0.3 ML DISP.SYRIN SUBCUT SCH (10:20)
[2017-04-07 10:48] LABS: CREATINE KINASE MB 2.55 ng/mL (<4.55); TROPONIN I 0.02 ng/mL
[2017-04-07] MEDS ORDERED: LANSOPRAZOLE 30 MG TAB.RAP.DR PO ONE (11:00)
[2017-04-07] MEDS ORDERED: PANTOPRAZOLE SODIUM 40 MG VIAL IV ONE (12:00)
--- NOTE | 2017-04-07 13:07 | PDOC PROGRESS REPORT ---
Subjective Progress Note for:: 04/07/17 Subjective:: Patient is complaining about chest pain this morning. Cardiology is in to see her. She did have 2 negative troponins overnight. However question if she has true cardiac disease. EGD will be deferred. Can perform once cardiac workup has been done which may need to include stress test. No significant complaints overnight. Reason For Visit: N/V,DEHYDRATION,HYPONATREMIA,RENAL FAILURE Physical Exam Vital Signs: Temp Pulse Resp BP Pulse Ox 98.0 F 82 22 H 116/79 95 04/07/17 11:18 04/07/17 11:18 04/07/17 11:18 04/07/17 11:18 04/07/17 11:18 Intake & Output 04/06/17 04/07/17 04/08/17 06:59 06:59 06:59 Intake Total 1520 Output Total 1700 Balance -180 Weight 76.9 kg General appearance: PRESENT: no acute distress, well-developed, well-nourished Head exam: PRESENT: atraumatic, normocephalic Eye exam: PRESENT: EOMI, PERRLA. ABSENT: nystagmus, periorbital swelling, scleral icterus Mouth exam: PRESENT: moist, neck supple Throat exam: ABSENT: tonsillar exudate, tonsillogmegaly Neck exam: ABSENT: meningismus, tenderness, thyromegaly Respiratory exam: PRESENT: symmetrical, unlabored. ABSENT: tachypnea, wheezes Cardiovascular exam: PRESENT: RRR, +S1, +S2 GI/Abdominal exam: PRESENT: soft. ABSENT: Ann's sign, rebound, rigid, tenderness Extremities exam: ABSENT: joint swelling, pedal edema Musculoskeletal exam: PRESENT: full ROM Neurological exam: PRESENT: oriented to situation, CN II-XII grossly intact Focused psych exam: ABSENT: restlessness Skin exam: PRESENT: normal color. ABSENT: mottled, pallor, urticaria, vesicles Results Laboratory Results: 04/07/17 04:54 04/07/17 04:54 04/06/17 04/06/17 04/06/17 14:37 14:37 14:37 WBC RBC Hgb Hct MCV MCH MCHC RDW Plt Count Seg Neutrophils % Lymphocytes % Monocytes % Eosinophils % Basophils % Absolute Neutrophils Absolute Lymphocytes Absolute Monocytes Absolute Eosinophils Absolute Basophils Sodium Potassium Chloride Carbon Dioxide Anion Gap BUN Creatinine Est GFR ( Amer) Est GFR (Non-Af Amer) Glucose Serum Osmolality Cancelled Calcium Total Bilirubin AST ALT Alkaline Phosphatase Total Protein Albumin Lipase 148.8 TSH 80.70 H Free T4 Free T3 pg/mL Urine Color Urine Appearance Urine pH Ur Specific [place] Urine Protein Urine Glucose (UA) Urine Ketones Urine Blood Urine Nitrite Ur Leukocyte Esterase Urine WBC (Auto) Urine RBC (Auto) Urine Osmolality 04/06/17 04/06/17 04/06/17 16:20 16:20 19:30 WBC RBC Hgb Hct MCV MCH MCHC RDW Plt Count Seg Neutrophils % Lymphocytes % Monocytes % Eosinophils % Basophils % Absolute Neutrophils Absolute Lymphocytes Absolute Monocytes Absolute Eosinophils Absolute Basophils Sodium Potassium Chloride Carbon Dioxide Anion Gap BUN Creatinine Est GFR ( Amer) Est GFR (Non-Af Amer) Glucose Serum Osmolality 261 L Calcium Total Bilirubin AST ALT Alkaline Phosphatase Total Protein Albumin Lipase TSH Free T4 0.33 L Free T3 pg/mL 1.37 L Urine Color Urine Appearance Urine pH Ur Specific [place] Urine Protein Urine Glucose (UA) Urine Ketones Urine Blood Urine Nitrite Ur Leukocyte Esterase Urine WBC (Auto) Urine RBC (Auto) Urine Osmolality 228 L 04/06/17 04/07/17 04/07/17 19:30 04:54 04:54 WBC 11.7 H RBC 5.18 Hgb 16.2 H Hct 45.8 MCV 88 MCH 31.4 MCHC 35.5 RDW 14.0 Plt Count 437 Seg Neutrophils % 72.2 Lymphocytes % 21.2 Monocytes % 5.3 Eosinophils % 0.4 Basophils % 0.9 Absolute Neutrophils 8.5 H Absolute Lymphocytes 2.5 Absolute Monocytes 0.6 Absolute Eosinophils 0.1 Absolute Basophils 0.1 Sodium 128.4 L Potassium 3.1 L Chloride 93 L Carbon Dioxide 27 Anion Gap 8 BUN 17 Creatinine 1.42 H Est GFR ( Amer) 46 L Est GFR (Non-Af Amer) 38 L Glucose 101 Serum Osmolality Calcium 8.7 Total Bilirubin 0.2 AST 41 H ALT 24 Alkaline Phosphatase 103 Total Protein 6.2 L Albumin 3.7 Lipase TSH Free T4 Free T3 pg/mL Urine Color YELLOW Urine Appearance CLEAR Urine pH 7.0 Ur Specific [place] 1.008 Urine Protein >=500 H Urine Glucose (UA) 50 H Urine Ketones NEGATIVE Urine Blood NEGATIVE Urine Nitrite NEGATIVE Ur Leukocyte Esterase NEGATIVE Urine WBC (Auto) 1 Urine RBC (Auto) 0 Urine Osmolality 04/06/17 04/06/17 04/06/17 14:37 14:37 22:27 Creatine Kinase 148 H 151 H CK-MB (CK-2) 4.94 H Troponin I 0.020 04/06/17 04/07/17 04/07/17 22:27 04:54 04:54 Creatine Kinase 107 CK-MB (CK-2) 4.55 3.25 Troponin I 0.021 0.023 04/07/17 04/07/17 10:08 10:08 Creatine Kinase 91 CK-MB (CK-2) 2.55 Troponin I 0.020 Impressions: Chest X-Ray 04/06/17 13:37 IMPRESSION: NO SIGNIFICANT RADIOGRAPHIC FINDING IN THE CHEST. Assessment & Plan - Diagnosis (1) Nausea & vomiting Plan: Question if she has peptic ulcer disease The procedure has been put on hold given her new complaints of chest pain. Cardiology is proceeding with the workup. If negative then we will proceed with upper endoscopy. I spoke with Dr. Pacheco with regards to the case. Further recommendations to follow. Continue PPI. (2) Diarrhea Qualifiers: Diarrhea type: unspecified type Qualified Code(s): R19.7 - Diarrhea, unspecified Is this a current diagnosis for this admission?: Yes
--- NOTE | 2017-04-07 13:32 | RADIOLOGY REPORT (SQ) ---
EXAM DESCRIPTION: CT CHEST WITHOUT COMPLETED DATE/TIME: 04/07/2017 12:48 pm REASON FOR STUDY: copd/cough COMPARISON: CT chest 01/07/2013, 05/24/2014, 09/04/2015, 03/30/2016 TECHNIQUE: CT scan performed of the chest without intravenous contrast. Images reviewed with lung, soft tissue and bone windows. Reconstructed coronal and sagittal MPR images reviewed. All images st ored on PACS. All CT scanners at this facility use dose modulation, iterative reconstruction, and/or weight based d osing when appropriate to reduce radiation dose to as low as reasonably achievable (ALARA). [facility]: Dose Right [facility]: CareDose [facility]: Dose Right [facility]: Teradose 4D [facility]: [employer] RADIATION DOSE: CT Rad equipment meets quality standard of care and radiation dose reduction techniq ues were employed. CTDIvol: 7.7 mGy. DLP: 280 mGy-cm. mGy. LIMITATIONS: No technical limitations. FINDINGS: LUNGS AND PLEURA: Hyperinflation and hyperlucency from obstructive lung disease. Minimal bibasilar atelectasis. No pleural effusion. No pneumothorax. No worrisome pulmonary nodules. HILAR AND MEDIASTINAL STRUCTURES: No identified masses or abnormal nodes. No obvious aneurysm. HEART AND VASCULAR STRUCTURES: No aneurysm. No pericardial effusion. Very [place] ira coronary art anthony calcification UPPER ABDOMEN: Clips right upper quadrant post cholecystectomy. THYROID AND OTHER SOFT TISSUES: Post left mastectomy with breast implant. BONES: No significant finding. HARDWARE: None in the chest. OTHER: No other significant findings. IMPRESSION: Obstructive lung disease Mild bibasilar atelectasis. TECHNICAL DOCUMENTATION: JOB ID: [id number] Quality ID # [id number]: Final reports with documentation of one or more dose reduction techniques (e.g., Au tomated exposure control, adjustment of the mA and/or kV according to patient size, use of iterative reconstruction technique) 2010 [employer]- All Rights Reserved
--- NOTE | 2017-04-07 13:42 | RADIOLOGY REPORT (SQ) ---
EXAM DESCRIPTION: NM LUNG VENT/PERF SCAN COMPLETED DATE/TIME: 04/07/2017 12:56 pm REASON FOR STUDY: chest pain/h/o pe COMPARISON: None. RADIONUCLIDE AND DOSE: 5.38 millicuries TC-99m MAA Intravenous 31.9 millicuries TC-99m DTPA Inhaled aerosol TECHNIQUE: Eight views of the lungs acquired post ventilation of DTPA aerosol. Eight matching views of the lungs acquired following injection of MAA. LIMITATIONS: Study is limited due to the patient's condition. Only limited perfusion images could b e obtained. FINDINGS: VENTILATION: There is some minimal inhomogeneity of the distribution of tracer activity wi th some pooling of activity in the trachea and central bronchi. PERFUSION: Perfusion images with normal homogenous activity and no wedge-shaped or segmental defects. No ventilation-perfusion mismatches. OTHER: No other significant finding. IMPRESSION: Somewhat limited study as noted above. No definite evidence for pulmonary embolic disea se. TECHNICAL DOCUMENTATION: JOB ID: [id number] [employer]- All Rights Reserved
[2017-04-07] MEDS ORDERED: LIDOCAINE 5% (700 MG) TRANSDERMAL ADH..PATCH TP ONE (14:00)
--- NOTE | 2017-04-07 14:53 | PDOC PROGRESS REPORT ---
Subjective Progress Note for:: 04/07/17 Subjective:: At the time of examination she was currently sitting up at bed side eating lunch. She recently had a chest CT and will be having an EGD tomorrow. She received two 20mEQ k-riders today. Before receiving them she was having cramping in her feet and hands. She denies heart palpitations at the time. Currently at the time of examination she was not complaining of chest pain or SOB. She also has been having normal bowel movements. She denies any fevers or chills. Reason For Visit: N/V,DEHYDRATION,HYPONATREMIA,RENAL FAILURE Physical Exam Vital Signs: Temp Pulse Resp BP Pulse Ox 98.0 F 82 22 H 116/79 95 04/07/17 11:18 04/07/17 11:18 04/07/17 11:18 04/07/17 11:18 04/07/17 11:18 Intake & Output 04/06/17 04/07/17 04/08/17 06:59 06:59 06:59 Intake Total 1520 Output Total 1700 Balance -180 Weight 76.9 kg General appearance: PRESENT: no acute distress, well-developed, well-nourished Mouth exam: PRESENT: moist, neck supple Respiratory exam: PRESENT: rhonchi. ABSENT: accessory muscle use, clear to auscultation nuvia, crackles, rales, wheezes Cardiovascular exam: PRESENT: +S1, +S2 GI/Abdominal exam: PRESENT: normal bowel sounds, soft. ABSENT: distended, firm , guarding, organomegaly, tenderness Extremities exam: ABSENT: pedal edema, tenderness Musculoskeletal exam: PRESENT: normal inspection. ABSENT: tenderness Neurological exam: PRESENT: alert, awake, oriented to person, oriented to place , oriented to time, oriented to situation Psychiatric exam: PRESENT: appropriate affect, normal mood Skin exam: PRESENT: dry, intact, warm Results Laboratory Results: 04/07/17 04:54 04/07/17 04:54 04/06/17 04/06/17 04/06/17 14:37 14:37 14:37 WBC RBC Hgb Hct MCV MCH MCHC RDW Plt Count Seg Neutrophils % Lymphocytes % Monocytes % Eosinophils % Basophils % Absolute Neutrophils Absolute Lymphocytes Absolute Monocytes Absolute Eosinophils Absolute Basophils Sodium Potassium Chloride Carbon Dioxide Anion Gap BUN Creatinine Est GFR ( Amer) Est GFR (Non-Af Amer) Glucose Serum Osmolality Cancelled Calcium Total Bilirubin AST ALT Alkaline Phosphatase Total Protein Albumin Lipase 148.8 TSH 80.70 H Free T4 Free T3 pg/mL Urine Color Urine Appearance Urine pH Ur Specific [place] Urine Protein Urine Glucose (UA) Urine Ketones Urine Blood Urine Nitrite Ur Leukocyte Esterase Urine WBC (Auto) Urine RBC (Auto) Urine Osmolality 04/06/17 04/06/17 04/06/17 16:20 16:20 19:30 WBC RBC Hgb Hct MCV MCH MCHC RDW Plt Count Seg Neutrophils % Lymphocytes % Monocytes % Eosinophils % Basophils % Absolute Neutrophils Absolute Lymphocytes Absolute Monocytes Absolute Eosinophils Absolute Basophils Sodium Potassium Chloride Carbon Dioxide Anion Gap BUN Creatinine Est GFR ( Amer) Est GFR (Non-Af Amer) Glucose Serum Osmolality 261 L Calcium Total Bilirubin AST ALT Alkaline Phosphatase Total Protein Albumin Lipase TSH Free T4 0.33 L Free T3 pg/mL 1.37 L Urine Color Urine Appearance Urine pH Ur Specific [place] Urine Protein Urine Glucose (UA) Urine Ketones Urine Blood Urine Nitrite Ur Leukocyte Esterase Urine WBC (Auto) Urine RBC (Auto) Urine Osmolality 228 L 04/06/17 04/07/17 04/07/17 19:30 04:54 04:54 WBC 11.7 H RBC 5.18 Hgb 16.2 H Hct 45.8 MCV 88 MCH 31.4 MCHC 35.5 RDW 14.0 Plt Count 437 Seg Neutrophils % 72.2 Lymphocytes % 21.2 Monocytes % 5.3 Eosinophils % 0.4 Basophils % 0.9 Absolute Neutrophils 8.5 H Absolute Lymphocytes 2.5 Absolute Monocytes 0.6 Absolute Eosinophils 0.1 Absolute Basophils 0.1 Sodium 128.4 L Potassium 3.1 L Chloride 93 L Carbon Dioxide 27 Anion Gap 8 BUN 17 Creatinine 1.42 H Est GFR ( Amer) 46 L Est GFR (Non-Af Amer) 38 L Glucose 101 Serum Osmolality Calcium 8.7 Total Bilirubin 0.2 AST 41 H ALT 24 Alkaline Phosphatase 103 Total Protein 6.2 L Albumin 3.7 Lipase TSH Free T4 Free T3 pg/mL Urine Color YELLOW Urine Appearance CLEAR Urine pH 7.0 Ur Specific [place] 1.008 Urine Protein >=500 H Urine Glucose (UA) 50 H Urine Ketones NEGATIVE Urine Blood NEGATIVE Urine Nitrite NEGATIVE Ur Leukocyte Esterase NEGATIVE Urine WBC (Auto) 1 Urine RBC (Auto) 0 Urine Osmolality 04/06/17 04/06/17 04/06/17 14:37 14:37 22:27 Creatine Kinase 148 H 151 H CK-MB (CK-2) 4.94 H Troponin I 0.020 04/06/17 04/07/17 04/07/17 22:27 04:54 04:54 Creatine Kinase 107 CK-MB (CK-2) 4.55 3.25 Troponin I 0.021 0.023 04/07/17 04/07/17 10:08 10:08 Creatine Kinase 91 CK-MB (CK-2) 2.55 Troponin I 0.020 Impressions: Chest X-Ray 04/06/17 13:37 IMPRESSION: NO SIGNIFICANT RADIOGRAPHIC FINDING IN THE CHEST. Chest CT 04/07/17 00:00 IMPRESSION: Obstructive lung disease Mild bibasilar atelectasis. Lung Scan-VQ NM 04/07/17 00:00 IMPRESSION: Somewhat limited study as noted above. No definite evidence for pulmonary embolic disease. Assessment & Plan - Diagnosis (1) Hyponatremia Is this a current diagnosis for this admission?: Yes Plan: improving at a good rate, continue fluids at current rate. Does not appear fluid overloaded (2) Hypokalemia Plan: will start her on daily 20mEQ k-riders until potassium is stable. PO potassium is not a good route to go due to nausea. (3) COPD (chronic obstructive pulmonary disease) Qualifiers: COPD type: unspecified COPD Qualified Code(s): J44.9 - Chronic obstructive pulmonary disease, unspecified Is this a current diagnosis for this admission?: Yes Plan: currently on IV steroids, duoneb treatments and levoquin (4) CKD (chronic kidney disease) stage 3, GFR 30-59 ml/min Plan: at baseline (5) Diarrhea Qualifiers: Diarrhea type: unspecified type Qualified Code(s): R19.7 - Diarrhea, unspecified Is this a current diagnosis for this admission?: Yes Plan: resolved according to the patient (6) Nausea & vomiting Qualifiers: Vomiting Intractability: unspecified Is this a current diagnosis for this admission?: Yes Plan: still having occassional nausea but is feeling better. (7) HTN (hypertension) Qualifiers: Hypertension type: essential hypertension Qualified Code(s): I10 - Essential (primary) hypertension Is this a current diagnosis for this admission?: Yes Plan: currently controlled (8) FSGS (focal segmental glomerulosclerosis) Plan: biopsy confirmed FSGS secondary to hypertension
--- NOTE | 2017-04-07 15:20 | Physician Advisory Note ---
Physician Advisor ProgressNote .: [facility] I have reviewed the medical record for this patient. Physician Advisor Statement: Please consider documenting, if you agree: 1. "Acute CP, suspect due to " 2. "N/V/D, suspect due to " 3. "Acute hyponatremia, due to " (intravascular volume depletion?) Thanks! CK
[2017-04-07] MEDS ORDERED: LANSOPRAZOLE 30 MG TAB.RAP.DR PO SCH (17:00)
[2017-04-07] MEDS: PANTOPRAZOLE SODIUM 40 MG VIAL IV SCH (17:36)
--- NOTE | 2017-04-07 19:26 | XCELERA REPORT ---
[address] [address] Transthoracic Echocardiogram Report Name: CRISTIANE LOVE Age: 61 yrs Gender: Female : 1955 Patient Status: Inpatient Patient Location: [address] [place], [place] [address] Study Date: 04/07/2017 11:22 AM Height: 64 in Weight: 164 lb BSA: 1.8 m2 Procedure: A complete two-dimensional transthoracic echocardiogram was performed (2D, M-mode, spectral and color flow Doppler). The study was technically difficult with many images being suboptimal in quality. Reason For Study: Chest pain Ordering Physician: EMILIO ORTIZ Performed By: Hansa Veronica Interpretation Summary Left ventricular systolic function is low normal. There is mild concentric left ventricular hypertrophy. The left ventricle is grossly normal size. Doppler measurements suggest pseudonormalized left ventricular relaxation, which is associated with grade II/IV or mild to moderate diastolic dysfunction Wall motion cannot be accurately commented on, but no definite regional wall motion abnormalities noted. The right ventricular systolic function is normal. The right atrium is normal in size The left atrial size is normal. There is a trace amount of mitral regurgitation There is no mitral valve stenosis. There is no aortic valve stenosis No aortic regurgitation is present. There is no tricuspid stenosis. No tricuspid regurgitation. The aortic root is not well visualized. The inferior vena cava appeared normal and decreased > 50% with respiration (RAP 5-10 mmHg) Minimal pericardial effusion. MMode/2D Measurements & Calculations RVDd: 2.4 cm LVIDd: 3.9 cm FS: 29.9 % Ao root diam: 3.5 cm IVSd: 0.80 cm LVIDs: 2.8 cm EDV(Teich): 67.0 ml LVPWd: 0.83 cmESV(Teich): 28.3 ml Ao root area: 9.6 cm2 EF(Teich): 57.7 % LA dimension: 3.6 cm LVOT diam: 2.0 cm LVOT area: 3.3 cm2 Doppler Measurements & Calculations MV E max carla: MV P1/2t max carla: Ao V2 max: LV V1 max P.6 cm/sec 59.0 cm/sec 109.1 cm/sec 3.1 mmHg MV A max carla: MV P1/2t: 69.0 msec Ao max PG: LV V1 max: 92.2 cm/sec MVA(P1/2t): 3.2 cm2 4.8 mmHg 87.9 cm/sec MV E/A: 0.62 MV dec slope: MITZI(V,D): 2.6 cm2 250.1 cm/sec2 PA V2 max: 72.3 cm/sec PA max P.1 mmHg Left Ventricle The left ventricle is grossly normal size. There is mild concentric left ventricular hypertrophy. Left ventricular systolic function is low normal. Doppler measurements suggest pseudonormalized left ventricular relaxation, which is associated with grade II/IV or mild to moderate diastolic dysfunction. Wall motion cannot be accurately commented on, but no definite regional wall motion abnormalities noted. Right Ventricle The right ventricle is grossly normal size. There is normal right ventricular wall thickness. The right ventricular systolic function is normal. Atria The right atrium is normal in size. The left atrial size is normal. Interarterial septum not well visualized and not well dopplered. Cannot comment on ASD/PFO presence. Mitral Valve The mitral valve is grossly normal. There is no mitral valve stenosis. There is a trace amount of mitral regurgitation. Aortic Valve The aortic valve is not well visualized secondary to technical limitations. There is no aortic valve stenosis. No aortic regurgitation is present. Tricuspid Valve The tricuspid valve is not well visualized secondary to technical limitations. There is no tricuspid stenosis. No tricuspid regurgitation. Pulmonic Valve The pulmonic valve is not well visualized. Great Vessels The aortic root is not well visualized. The inferior vena cava appeared normal and decreased > 50% with respiration (RAP 5-10 mmHg). Effusions Minimal pericardial effusion. : EMILIO ORTIZ > Emilio Ortiz
--- NOTE | 2017-04-07 19:31 | PDOC CONSULTATION ---
Consultation Consult Date: 04/06/17 Attending physician:: TYRON WOODALL Consult reason:: Chest pain History of Present Illness Admission Date/PCP: 04/06/17 13:18 TYRON WOODALL MD Patient complains of: Chest pain History of Present Illness: Patient admitted with nausea and vomiting. She also complained of chest pain. Patient gives remote history of stent placement in the past. Patient continues to smoke. Patient is a poor historian and has history of psychiatric problems including bipolar disorder. She is on numerous antipsychotic medications. 12- lead EKG obtained was noted to be none acute. Initial cardiac enzymes felt to be negative. I was asked to evaluate patient for chest pain and also clear for endoscopy. Patient quite vague about chest pain history. She describes as a tightness in the mid left chest. There is no precipitating factors and it last about 5-10 minutes. Patient does describe history of some reflux. Past Medical History Cardiac Medical History: Reports: Coronary Artery Disease, Hyperlipidema, Hypertension, Pulmonary Embolism Denies: Myocardial Infarction Pulmonary Medical History: Reports: Asthma, Bronchitis, Chronic Obstructive Pulmonary Disease (COPD), Pneumonia, Sleep Apnea Denies: Tuberculosis Neurological Medical History: Reports: Ischemic CVA Denies: Seizures Endocrine Medical History: Reports: Diabetes Mellitus Type 2 Renal/ Medical History: Reports: Chronic Kidney Disease Malignancy Medical History: Reports: Breast Cancer, Other - Thyroid GI Medical History: Reports: Gastroesophageal Reflux Disease Musculoskeltal Medical History: Reports: Arthritis Psychiatric Medical History: Reports: Bipolar Disorder, Depression, General Anxiety Disorder Hematology: Denies: Anemia Past Surgical History Past Surgical History: Reports: Appendectomy, Cardiac Catheterization - stent x 1, Cholecystectomy, Mastectomy - left side, pt states many years ago Social History Information Source: Patient Lives with: Family Smoking Status: Current Every Day Smoker Cigarettes Packs Per Day: 1 Number of Years Smokin Last Time Smoked: 1345 Frequency of Alcohol Use: None Hx Recreational Drug Use: No Drugs: None Hx Prescription Drug Abuse: No - Advance Directive Resuscitation Status: Full Code Surrogate healthcare decision maker:: Patient's is the surrogate decision maker Family History Family History: CAD Parental Family History Reviewed: Yes Children Family History Reviewed: Yes Sibling(s) Family History Reviewed.: Yes Medication/Allergy Home Medications: Amlodipine Besylate [Norvasc 2.5 mg Tablet] 2.5 mg PO Q12 04/06/17 Aripiprazole [Abilify 30 mg Tablet] 30 mg PO DAILY 04/06/17 Atorvastatin Calcium [Lipitor 10 mg Tablet] 10 mg PO QHS 04/06/17 Clopidogrel Bisulfate [Plavix 75 mg Tablet] 75 mg PO DAILY 04/06/17 Docusate Sodium [Colace 100 mg Capsule] 100 mg PO BID 04/06/17 Ezetimibe [Zetia 10 mg Tablet] 10 mg PO DAILY 04/06/17 Fenofibrate 160 mg PO DAILY 04/06/17 Hydroxyzine HCl [Atarax 50 mg Tablet] 100 mg PO QID 04/06/17 Levocetirizine Dihydrochloride [Xyzal] 5 mg PO QHS 04/06/17 Lisinopril [Prinivil 10 mg Tablet] 10 mg PO QHS 04/06/17 Metoprolol Tartrate [Lopressor 25 mg Tablet] 25 mg PO Q12 04/06/17 Mirtazapine [Remeron] 30 mg PO QHS 04/06/17 Ondansetron HCl [Zofran 4 mg Tablet] 4 mg PO DAILY 04/06/17 Promethazine HCl [Phenergan] 12.5 mg [place] BIDP PRN 04/06/17 Quetiapine Fumarate [Seroquel] 100 mg PO QHS 04/06/17 Thyroid,Pork [[place] Thyroid] 90 mg PO Q6AM 04/06/17 Venlafaxine HCl [Effexor Xr] 150 mg PO BID 04/06/17 Allergies/Adverse Reactions: codeine Allergy (Verified 03/03/17 06:28) Itching latex Allergy (Verified 03/03/17 06:28) Hives liothyronine [From Cytomel] Allergy (Verified 04/06/17 15:32) Shortness of Breath morphine [Morphine] Allergy (Verified 03/03/17 06:28) Itching nalbuphine [From Nubain] Allergy (Verified 03/03/17 06:28) Itching hydrocodone Adverse Reaction (Mild, Verified 04/06/17 15:31) Rash plastic tape Allergy (Uncoded 03/03/17 06:28) Itching Review of Systems Review of Systems: Please see history of present illness and past medical history as wall. Constitutional: No fever or chills reported. Head : No recent chronic headaches, recent head injury. Eyes: No recent eye pain, diplopia, redness, discharge, acute visual changes. Ears: No recent chronic ear pain, acute hearing loss, ear discharge. Oral cavity: No recent ulcerations, bleeding, oral cavity discomfort. Neck: No recent acute neck pain reported. Hematologic: No recent easy bruising or bleeding or hematologic malignancy reported. Lymphatic: No recent lymphatic malignancy, chronic lymphadenopathy reported yet Cardiovascular system review: See history of present illness. Respiratory system review: No recent chronic cough, hemoptysis, blood clots in the lungs reported. Mild Shortness of breath on exertion Gastrointestinal system review: Nausea vomiting noted. Negative for any recent acute or chronic abdominal pain, hematemesis, melena, recent change in bowel habits. Genitourinary system review: No recent acute or chronic hematuria, flank pain, UTI etc. reported. Skin system review: Negative for any recent abnormal bruising, no rash, no pruritus reported. Neurologic: History of prior stroke but negative seizure disorder. Psychologic: No history of major psychosis or major depression reported. Musculoskeletal: Minor aches and pains reported. No acute joint swelling reported. Endocrine: No recent polyuria, polydipsia, recent heat or cold intolerance. Physical Exam Vital Signs: Temp Pulse Resp BP Pulse Ox 97.4 F 108 H 20 161/85 H 93 04/06/17 19:26 04/06/17 19:26 04/06/17 19:26 04/06/17 19:26 04/06/17 19:26 Intake & Output 04/05/17 04/06/17 04/07/17 06:59 06:59 06:59 Intake Total 300 Balance 300 Weight 74.389 kg Exam: GENERAL: well-nourished and in no acute distress. Alert and oriented x3 HEAD: Atraumatic, normocephalic. EYES: Pupils equal round and reactive to light, extraocular movements intact, sclera anicteric, conjunctiva are normal. ENT: TMs normal, nares patent, oropharynx clear without exudates. Moist mucous membranes. No oral ulcerations or bleeding gums noted NECK: supple without lymphadenopathy. Trachea is central. No cervical or axillary lymphadenopathy noted. Carotids are 2+, JVD WNL LUNGS: Respiration seems nonlabored, no significant accessory muscle action noted. Breath sounds clear to auscultation bilaterally and equal noted. No wheezes rales or rhonchi noted. No significant dullness noted on percussion. CHEST: Palpation of the chest wall shows no significant chest wall tenderness. No other significant abnormalities noted. Patient is status post mastectomy with reconstruction. 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 ABDOMEN: Soft, no significant tenderness appreciated, normoactive bowel sounds. No guarding, no rebound. No rigidity noted . No masses appreciated. EXTREMITIES: Pedal pulses are 1-2+, no calf tenderness noted. No clubbing or cyanosis.trace to 1+ pedal edema noted NEUROLOGICAL: Focused neurological exam showed no significant neurologic deficit. Normal speech, no focal weakness appreciated. PSYCH: Normal mood, normal affect. Judgment and insight within normal limits. SKIN: No significant ecchymosis, rash, ulcerations or signs of pruritus noted. MUSCULOSKELETAL EXAM: No significant joint swelling noted. Results Laboratory Results: 04/06/17 04/06/17 04/06/17 14:37 14:37 14:37 Serum Osmolality Cancelled Lipase 148.8 TSH 80.70 H Free T4 Free T3 pg/mL Urine Osmolality 04/06/17 04/06/17 04/06/17 16:20 16:20 19:30 Serum Osmolality 261 L Lipase TSH Free T4 0.33 L Free T3 pg/mL 1.37 L Urine Osmolality 228 L 04/06/17 04/06/17 14:37 14:37 Creatine Kinase 148 H CK-MB (CK-2) 4.94 H Troponin I 0.020 EKG Comments: Sinus rhythm, no acute ST-T wave changes noted Impressions: Chest X-Ray 04/06/17 13:37 IMPRESSION: NO SIGNIFICANT RADIOGRAPHIC FINDING IN THE CHEST. Assessment & Plan - Diagnosis (1) Chest pain Qualifiers: Chest pain type: unspecified Qualified Code(s): R07.9 - Chest pain, unspecified Is this a current diagnosis for this admission?: Yes (2) CAD (coronary artery disease) Qualifiers: Coronary Disease-Associated Artery/Lesion type: [place] artery [place] vs. transplanted heart: [place] heart Associated angina: angina presence unspecified Qualified Code(s): I25.10 - Atherosclerotic heart disease of [place] coronary artery without angina pectoris Is this a current diagnosis for this admission?: Yes (3) Nausea & vomiting Qualifiers: Vomiting Intractability: unspecified Is this a current diagnosis for this admission?: Yes (4) Bipolar disorder Qualifiers: Active/Remission status: currently active Is this a current diagnosis for this admission?: Yes (5) HLD (hyperlipidemia) Qualifiers: Hyperlipidemia type: pure hypercholesterolemia Qualified Code(s): E78.00 - Pure hypercholesterolemia, unspecified Is this a current diagnosis for this admission?: Yes (6) HTN (hypertension) Qualifiers: Hypertension type: essential hypertension Qualified Code(s): I10 - Essential (primary) hypertension Is this a current diagnosis for this admission?: Yes (7) Cigarette smoker Is this a current diagnosis for this admission?: Yes - Notes Notes: Chest pain: Patient noted to have chest pain associated with nausea vomiting. Agreed that there could be possible GI etiology. Patient was cleared for GI endoscopy as this is a low risk procedure. Initial EKGs and cardiac enzymes were noted to be relatively unremarkable. Coronary artery disease: Patient gives history of remote placement of stents. Currently stable. Patient to report any recurrence of chest pain. Nausea and vomiting: Possibly GI related. Will leave further evaluation to surgical aide and electronics mechanic. Bipolar disorder: Continue current management plans. Hyperlipidemia: Continue statin therapy. Hypertension: Currently reasonably well controlled. Avoid any severe hypertension or hypotension. Cigarette smoker: Patient has been advised to quit smoking but she is not keen on doing that. - Time Time Spent: 30 to 50 Minutes - CODE STATUS was discussed, patient remains full code. Surrogate decision-maker patient's . Multiple medical problems were addressed. More than 50% of the time spent coordinating care, discussing management plans with involved caregivers. Management plans discussed with involved personnels. Medical decision making was of moderate to high complexity , patient's has multiple comorbidities. Medications reviewed and adjusted accordingly: Yes
--- NOTE | 2017-04-07 19:34 | PDOC PROGRESS REPORT ---
Subjective Progress Note for:: 04/07/17 Subjective:: Patient was noted to have chest pain. Patient claims that she was stressed out this morning because of forthcoming GI procedure therefore she is started having chest pain. I discussed this with the nurse and felt that unless the GI endoscopy was felt to be urgent or emergent, its best postponed. The endoscopy was postponed. We did get a stat EKG which shows normal sinus rhythm, without any acute changes. When they went back to see her at lunchtime she was chest pain-free and was eating lunch without any complaints. Telemetry strip shows sinus rhythm without any sustained tachycardia or bradyarrhythmias. Reason For Visit: N/V,DEHYDRATION,HYPONATREMIA,RENAL FAILURE Physical Exam Vital Signs: Temp Pulse Resp BP Pulse Ox 97.3 F 73 20 129/66 H 93 04/07/17 15:32 04/07/17 15:32 04/07/17 15:32 04/07/17 15:32 04/07/17 15:32 Intake & Output 04/06/17 04/07/17 04/08/17 06:59 06:59 06:59 Intake Total 1520 2510 Output Total 1700 460 Balance -180 2050 Weight 76.9 kg Exam: GENERAL: well-nourished and in no acute distress. Alert and oriented x3 HEAD: Atraumatic, normocephalic. EYES: Pupils equal round and reactive to light, extraocular movements intact, sclera anicteric, conjunctiva are normal. ENT: TMs normal, nares patent, oropharynx clear without exudates. Moist mucous membranes. No oral ulcerations or bleeding gums noted NECK: supple without lymphadenopathy. Trachea is central. No cervical or axillary lymphadenopathy noted. Carotids are 2+, JVD WNL LUNGS: Respiration seems nonlabored, no significant accessory muscle action noted. Mild bilateral wheezes rales or rhonchi noted. No significant dullness noted on percussion. CHEST: Palpation of the chest wall shows no significant chest wall tenderness. No other significant abnormalities noted. Status post mastectomy with reconstruction changes noted. HEART: [place] [employer], No PSH, 1/6 CY aortic area, 1/6 harmon systolic murmur mitral area, no rubs, no gallops. ABDOMEN: Soft, no significant tenderness appreciated, normoactive bowel sounds. No guarding, no rebound. No rigidity noted . No masses appreciated. EXTREMITIES: Pedal pulses are 1-2+, no calf tenderness noted. No clubbing or cyanosis. Negative pedal edema noted NEUROLOGICAL: Focused neurological exam showed no significant neurologic deficit. Normal speech, no focal weakness appreciated. PSYCH: Normal mood, normal affect. Judgment and insight within normal limits. SKIN: No significant ecchymosis, rash, ulcerations or signs of pruritus noted. MUSCULOSKELETAL EXAM: No significant joint swelling noted. Results Laboratory Results: 04/07/17 04:54 04/07/17 04:54 04/06/17 04/06/17 04/06/17 16:20 19:30 19:30 WBC RBC Hgb Hct MCV MCH MCHC RDW Plt Count Seg Neutrophils % Lymphocytes % Monocytes % Eosinophils % Basophils % Absolute Neutrophils Absolute Lymphocytes Absolute Monocytes Absolute Eosinophils Absolute Basophils Sodium Potassium Chloride Carbon Dioxide Anion Gap BUN Creatinine Est GFR ( Amer) Est GFR (Non-Af Amer) Glucose Calcium Total Bilirubin AST ALT Alkaline Phosphatase Total Protein Albumin Free T4 0.33 L Free T3 pg/mL 1.37 L Urine Color YELLOW Urine Appearance CLEAR Urine pH 7.0 Ur Specific [place] 1.008 Urine Protein >=500 H Urine Glucose (UA) 50 H Urine Ketones NEGATIVE Urine Blood NEGATIVE Urine Nitrite NEGATIVE Ur Leukocyte Esterase NEGATIVE Urine WBC (Auto) 1 Urine RBC (Auto) 0 Urine Osmolality 228 L 04/07/17 04/07/17 04:54 04:54 WBC 11.7 H RBC 5.18 Hgb 16.2 H Hct 45.8 MCV 88 MCH 31.4 MCHC 35.5 RDW 14.0 Plt Count 437 Seg Neutrophils % 72.2 Lymphocytes % 21.2 Monocytes % 5.3 Eosinophils % 0.4 Basophils % 0.9 Absolute Neutrophils 8.5 H Absolute Lymphocytes 2.5 Absolute Monocytes 0.6 Absolute Eosinophils 0.1 Absolute Basophils 0.1 Sodium 128.4 L Potassium 3.1 L Chloride 93 L Carbon Dioxide 27 Anion Gap 8 BUN 17 Creatinine 1.42 H Est GFR ( Amer) 46 L Est GFR (Non-Af Amer) 38 L Glucose 101 Calcium 8.7 Total Bilirubin 0.2 AST 41 H ALT 24 Alkaline Phosphatase 103 Total Protein 6.2 L Albumin 3.7 Free T4 Free T3 pg/mL Urine Color Urine Appearance Urine pH Ur Specific [place] Urine Protein Urine Glucose (UA) Urine Ketones Urine Blood Urine Nitrite Ur Leukocyte Esterase Urine WBC (Auto) Urine RBC (Auto) Urine Osmolality 04/06/17 04/06/17 04/06/17 14:37 14:37 22:27 Creatine Kinase 148 H 151 H CK-MB (CK-2) 4.94 H Troponin I 0.020 04/06/17 04/07/17 04/07/17 22:27 04:54 04:54 Creatine Kinase 107 CK-MB (CK-2) 4.55 3.25 Troponin I 0.021 0.023 04/07/17 04/07/17 10:08 10:08 Creatine Kinase 91 CK-MB (CK-2) 2.55 Troponin I 0.020 EKG Comments: Shows sinus rhythm without any sustained tachycardia or bradycardia arrhythmias. Twelve-lead EKG obtained for chest pain was negative for any significant ST-T wave changes. Impressions: Chest X-Ray 04/06/17 13:37 IMPRESSION: NO SIGNIFICANT RADIOGRAPHIC FINDING IN THE CHEST. Chest CT 04/07/17 00:00 IMPRESSION: Obstructive lung disease Mild bibasilar atelectasis. [facility] 04/07/17 00:00 IMPRESSION: Somewhat limited study as noted above. No definite evidence for pulmonary embolic disease. Assessment & Plan - Diagnosis (1) Chest pain Qualifiers: Chest pain type: unspecified Qualified Code(s): R07.9 - Chest pain, unspecified Is this a current diagnosis for this admission?: Yes (2) CAD (coronary artery disease) Qualifiers: Coronary Disease-Associated Artery/Lesion type: [place] artery [place] vs. transplanted heart: [place] heart Associated angina: angina presence unspecified Qualified Code(s): I25.10 - Atherosclerotic heart disease of [place] coronary artery without angina pectoris Is this a current diagnosis for this admission?: Yes (3) Nausea & vomiting Qualifiers: Vomiting Intractability: unspecified Is this a current diagnosis for this admission?: Yes (4) Bipolar disorder Qualifiers: Active/Remission status: currently active Is this a current diagnosis for this admission?: Yes (5) HLD (hyperlipidemia) Qualifiers: Hyperlipidemia type: pure hypercholesterolemia Qualified Code(s): E78.00 - Pure hypercholesterolemia, unspecified Is this a current diagnosis for this admission?: Yes (6) HTN (hypertension) Qualifiers: Hypertension type: essential hypertension Qualified Code(s): I10 - Essential (primary) hypertension Is this a current diagnosis for this admission?: Yes (7) Cigarette smoker Is this a current diagnosis for this admission?: Yes - Notes Notes: Chest pain: Patient has some typical and atypical features of chest pain. Cardiac enzymes so far has been negative. Electrocardiogram did not show any definitive ST segment changes. Multiple differential diagnoses exist in this patient. In descending order of probability this includes underlying coronary artery disease, gastroesophageal reflux, musculoskeletal pain, referred pain from elsewhere, anxiety panic disorder etc.Patient has significant cardiac risk factors, which indicates that there is a intermediate probability of chest discomfort coming from underlying CAD. Feel that it would need to be evaluated further. Discussed evaluation to assess this. In this regard risk benefits of nuclear stress test and other alternative processes were discussed in detail. The patient prefers to undergo nuclear stress test. The small risk of radiation , myocardial infarction, , cardiac arrhythmias, respiratory distress etc. were discussed. Patient understood the risks and gave informed consent. Nuclear stress test was therefore scheduled. For risk evaluation, patient is also being scheduled for a 2-D echocardiogram. Patient questions were answered. Hypertension: Blood pressure goal in this patient is 140/90 or less. This was discussed with the patient. Currently blood pressure under reasonable control. Better medication for this patient are SHALOM inhibitor/ARB/beta aston etc. discussed side effects of uncontrolled hypertension and also severe hypotension. Hyperlipidemia: LDL goal is less than 70. Recommend statin therapy at least intermediate or high dose, of high potency status. Periodic lipid panel and liver panel is indicated. Patient to report any significant muscle discomfort or other side effects. Patient again was advised to quit smoking. - Time Time with patient: Greater than 35 minutes - Patient was seen multiple times today in view of her having chest pain. Patient was evaluated while having chest pain and subsequently later. Patient to be scheduled for a stress test tomorrow. Medications reviewed and adjusted accordingly: Yes
--- NOTE | 2017-04-07 21:27 | EKG REPORT ---
SEVERITY:- BORDERLINE ECG - SINUS RHYTHM BORDERLINE PROLONGED QT INTERVAL : Confirmed by: Emilio Clay 07-Apr-2017 21:26:40
[2017-04-08] MEDS: THYROID (PORK) 60 MG TABLET PO SCH (05:46)
[2017-04-08 05:53] LABS: ABSOLUTE BASOPHILS # (AUTO) 0.1 10^3/uL (0.0-0.2); ABSOLUTE EOSINOPHILS # (AUTO) 0.1 10^3/uL (0.0-0.6); ABSOLUTE LYMPHOCYTES (AUTO) 1.9 10^3/uL (0.5-4.7); ABSOLUTE MONOCYTES (AUTO) 0.6 10^3/uL (0.1-1.4); ABSOLUTE NEUT (AUTO) 6.5 10^3/uL (1.7-8.2); EOSINOPHILS % (AUTO) 1.2 % (0-6); HEMATOCRIT 40.9 % (36.0-47.0); HEMOGLOBIN 14.2 g/dL (12.0-15.5); LYMPHOCYTES % (AUTO) 21.1 % (13-45); MEAN CORPUSCULAR HEMOGLOBIN 31.4 pg (27.0-33.4); MEAN CORPUSCULAR HGB CONC 34.8 g/dL (32.0-36.0); MEAN CORPUSCULAR VOLUME 90 fl (80-97); MONOCYTES % (AUTO) 6.1 % (3-13); PLATELET COUNT 386 10^3/uL (150-450); RED BLOOD COUNT 4.53 10^6/uL (3.72-5.28); RED CELL DISTRIBUTION WIDTH 14.1 % (11.5-14.0); SEGMENTED NEUTROPHILS % (AUTO) 70.6 % (42-78); TOTAL CELLS COUNTED % (AUTO) 100 %; WHITE BLOOD COUNT 9.2 10^3/uL (4.0-10.5)
[2017-04-08 06:11] LABS: ANION GAP 7 (5-19); BLOOD UREA NITROGEN 16 mg/dL (7-20); CALCIUM 8.6 mg/dL (8.4-10.2); CARBON DIOXIDE 24 mmol/L (22-30); CHLORIDE 101 mmol/L (98-107); GLUCOSE 117 mg/dL (75-110); POTASSIUM 3.8 mmol/L (3.6-5.0)
[2017-04-08] MEDS: IPRATROPIUM/ALBUTEROL 0.5-2.5 MG/3 ML AMPUL NEB SCH ×3 (08:29→21:12)
--- NOTE | 2017-04-08 09:00 | PDOC PROGRESS REPORT ---
Subjective Progress Note for:: 04/08/17 Subjective:: case is discussed with both Dr Pacheco and Danna patient not able to get stress test done today probably tomorrow patient not having any chest pain at this point will try to work in her EGD following her stress test tomorrow if negative patient's underlying symptoms is still nausea and epigastric pain patient denies any melena Reason For Visit: N/V,DEHYDRATION,HYPONATREMIA,RENAL FAILURE Physical Exam Vital Signs: Temp Pulse Resp BP Pulse Ox 97.8 F 77 18 130/66 H 97 04/08/17 07:37 04/08/17 08:33 04/08/17 08:33 04/08/17 07:37 04/08/17 08:33 Intake & Output 04/07/17 04/08/17 04/09/17 06:59 06:59 06:59 Intake Total 1520 3830 Output Total 1700 2560 Balance -180 1270 Weight 76.9 kg 77.4 kg General appearance: PRESENT: no acute distress, well-developed, well-nourished Head exam: PRESENT: atraumatic, normocephalic Eye exam: PRESENT: EOMI, PERRLA. ABSENT: periorbital swelling, scleral icterus Mouth exam: PRESENT: moist, neck supple Throat exam: ABSENT: tonsillar exudate, tonsillogmegaly Neck exam: ABSENT: meningismus, tenderness Respiratory exam: PRESENT: symmetrical, unlabored. ABSENT: tachypnea, wheezes Cardiovascular exam: PRESENT: RRR, +S1, +S2 GI/Abdominal exam: PRESENT: soft. ABSENT: rebound, rigid, tenderness Extremities exam: ABSENT: joint swelling Musculoskeletal exam: PRESENT: full ROM Neurological exam: PRESENT: oriented to person, oriented to place, oriented to time, oriented to situation, CN II-XII grossly intact Psychiatric exam: PRESENT: appropriate affect Focused psych exam: ABSENT: restlessness Skin exam: PRESENT: normal color. ABSENT: mottled, pallor, urticaria, vesicles Results Laboratory Results: 04/08/17 05:20 04/08/17 05:20 04/06/17 04/08/17 04/08/17 16:20 05:20 05:20 WBC 9.2 RBC 4.53 Hgb 14.2 Hct 40.9 MCV 90 MCH 31.4 MCHC 34.8 RDW 14.1 H Plt Count 386 Seg Neutrophils % 70.6 Lymphocytes % 21.1 Monocytes % 6.1 Eosinophils % 1.2 Basophils % 1.0 Absolute Neutrophils 6.5 Absolute Lymphocytes 1.9 Absolute Monocytes 0.6 Absolute Eosinophils 0.1 Absolute Basophils 0.1 Sodium 132.0 L Potassium 3.8 Chloride 101 Carbon Dioxide 24 Anion Gap 7 BUN 16 Creatinine 1.47 H Est GFR ( Amer) 44 L Est GFR (Non-Af Amer) 36 L Glucose 117 H Calcium 8.6 Thyroxine (T4) 2.7 L 04/06/17 04/06/17 04/06/17 14:37 14:37 22:27 Creatine Kinase 148 H 151 H CK-MB (CK-2) 4.94 H Troponin I 0.020 04/06/17 04/07/17 04/07/17 22:27 04:54 04:54 Creatine Kinase 107 CK-MB (CK-2) 4.55 3.25 Troponin I 0.021 0.023 04/07/17 04/07/17 10:08 10:08 Creatine Kinase 91 CK-MB (CK-2) 2.55 Troponin I 0.020 Impressions: Chest X-Ray 04/06/17 13:37 IMPRESSION: NO SIGNIFICANT RADIOGRAPHIC FINDING IN THE CHEST. Chest CT 04/07/17 00:00 IMPRESSION: Obstructive lung disease Mild bibasilar atelectasis. Lung Scan-[facility] 04/07/17 00:00 IMPRESSION: Somewhat limited study as noted above. No definite evidence for pulmonary embolic disease. Assessment & Plan - Diagnosis (1) Nausea & vomiting Plan: waiting on completion of patient's cardiac work up spoke with nursing to keep the patient NPO Dr Clay will try and read stress test results will proceed with EGD if it is negative continue current care for now (2) Diarrhea Qualifiers: Diarrhea type: unspecified type Qualified Code(s): R19.7 - Diarrhea, unspecified Is this a current diagnosis for this admission?: Yes
--- NOTE | 2017-04-08 09:19 | EKG REPORT ---
SEVERITY:- NORMAL ECG - SINUS RHYTHM : Confirmed by: Emilio Clay 08-Apr-2017 09:18:58
[2017-04-08] MEDS ORDERED: POTASSI CL 20 MEQ/50 ML RIDER 20 MEQ/50 ML RTUPB IV SCH (10:00)
--- NOTE | 2017-04-08 10:40 | PDOC PROGRESS REPORT ---
Subjective Progress Note for:: 04/08/17 Subjective:: Patient is currently doing better able to keep her food down Since denied any chest pain denied any shortness of the breath As per discussed with the cardiology suggest a stress test tomorrow morning and he was to currently hold the endoscopy before the stress test Discussed with the Dr. Coombs will currently hold the endoscopies until the patient is cleared from the cardiology standpoint Patient still smoke in the hospital in the bathroom and discussed with the patient's that the patient's Should not smoke in the bathroom will put a nicotine patch Reason For Visit: N/V,DEHYDRATION,HYPONATREMIA,RENAL FAILURE Physical Exam Vital Signs: Temp Pulse Resp BP Pulse Ox 97.8 F 77 18 130/66 H 97 04/08/17 07:37 04/08/17 08:33 04/08/17 08:33 04/08/17 07:37 04/08/17 08:33 Intake & Output 04/07/17 04/08/17 04/09/17 06:59 06:59 06:59 Intake Total 1520 3830 Output Total 1700 2560 Balance -180 1270 Weight 76.9 kg 77.4 kg General appearance: PRESENT: no acute distress, well-developed, well-nourished Head exam: PRESENT: atraumatic, normocephalic Eye exam: PRESENT: conjunctiva pink, EOMI, PERRLA. ABSENT: scleral icterus Ear exam: PRESENT: normal external ear exam Mouth exam: PRESENT: moist, tongue midline Neck exam: PRESENT: full ROM. ABSENT: carotid bruit, JVD, lymphadenopathy, thyromegaly Respiratory exam: PRESENT: clear to auscultation nuvia Cardiovascular exam: PRESENT: RRR. ABSENT: diastolic murmur, rubs, systolic murmur Pulses: PRESENT: normal [place] pedis pul, +2 pedal pulses bilateral Vascular exam: PRESENT: normal capillary refill GI/Abdominal exam: PRESENT: normal bowel sounds, soft. ABSENT: distended, guarding, mass, organolmegaly, rebound, tenderness Rectal exam: PRESENT: deferred Neurological exam: PRESENT: alert, awake, oriented to person, oriented to place , oriented to time, oriented to situation, CN II-XII grossly intact. ABSENT: motor sensory deficit Psychiatric exam: PRESENT: appropriate affect, normal mood. ABSENT: homicidal ideation, suicidal ideation Skin exam: PRESENT: dry, intact, warm. ABSENT: cyanosis, rash Results Laboratory Results: 04/08/17 05:20 04/08/17 05:20 04/06/17 04/08/17 04/08/17 16:20 05:20 05:20 WBC 9.2 RBC 4.53 Hgb 14.2 Hct 40.9 MCV 90 MCH 31.4 MCHC 34.8 RDW 14.1 H Plt Count 386 Seg Neutrophils % 70.6 Lymphocytes % 21.1 Monocytes % 6.1 Eosinophils % 1.2 Basophils % 1.0 Absolute Neutrophils 6.5 Absolute Lymphocytes 1.9 Absolute Monocytes 0.6 Absolute Eosinophils 0.1 Absolute Basophils 0.1 Sodium 132.0 L Potassium 3.8 Chloride 101 Carbon Dioxide 24 Anion Gap 7 BUN 16 Creatinine 1.47 H Est GFR ( Amer) 44 L Est GFR (Non-Af Amer) 36 L Glucose 117 H Calcium 8.6 Thyroxine (T4) 2.7 L 04/06/17 04/06/17 04/06/17 14:37 14:37 22:27 Creatine Kinase 148 H 151 H CK-MB (CK-2) 4.94 H Troponin I 0.020 04/06/17 04/07/17 04/07/17 22:27 04:54 04:54 Creatine Kinase 107 CK-MB (CK-2) 4.55 3.25 Troponin I 0.021 0.023 04/07/17 04/07/17 10:08 10:08 Creatine Kinase 91 CK-MB (CK-2) 2.55 Troponin I 0.020 Impressions: Chest X-Ray 04/06/17 13:37 IMPRESSION: NO SIGNIFICANT RADIOGRAPHIC FINDING IN THE CHEST. Chest CT 04/07/17 00:00 IMPRESSION: Obstructive lung disease Mild bibasilar atelectasis. Lung Scan-[facility] 04/07/17 00:00 IMPRESSION: Somewhat limited study as noted above. No definite evidence for pulmonary embolic disease. Assessment & Plan - Diagnosis (1) Intractable nausea and vomiting Qualifiers: Vomiting type: unspecified Qualified Code(s): R11.2 - Nausea with vomiting , unspecified Is this a current diagnosis for this admission?: Yes Plan: Is all improving will continues to monitor (2) Diarrhea Qualifiers: Diarrhea type: unspecified type Qualified Code(s): R19.7 - Diarrhea, unspecified Is this a current diagnosis for this admission?: Yes Plan: Currently all resolved (3) Dehydration Is this a current diagnosis for this admission?: Yes Plan: Start the patient on IV fluid (4) Hyponatremia Is this a current diagnosis for this admission?: Yes Plan: All improving (5) Acute renal failure Qualifiers: Acute renal failure type: unspecified Qualified Code(s): N17.9 - Acute kidney failure, unspecified Is this a current diagnosis for this admission?: Yes Plan: Patient have underlying chronic kidney disease with worsening with the recent dehydration's (6) Bipolar disorder Qualifiers: Active/Remission status: currently active Is this a current diagnosis for this admission?: Yes Plan: Currently continues to current medications (7) CAD (coronary artery disease) Qualifiers: Coronary Disease-Associated Artery/Lesion type: [place] artery [place] vs. transplanted heart: [place] heart Associated angina: angina presence unspecified Qualified Code(s): I25.10 - Atherosclerotic heart disease of [place] coronary artery without angina pectoris Is this a current diagnosis for this admission?: Yes Plan: Scheduled for the stress test tomorrow (8) CVA (cerebral vascular accident) Qualifiers: CVA mechanism: unspecified Qualified Code(s): I63.9 - Cerebral infarction, unspecified Is this a current diagnosis for this admission?: Yes Plan: Currently stable (9) Cigarette smoker Is this a current diagnosis for this admission?: Yes Plan: Which start the patient nicotine patch (10) HLD (hyperlipidemia) Qualifiers: Hyperlipidemia type: pure hypercholesterolemia Qualified Code(s): E78.00 - Pure hypercholesterolemia, unspecified Is this a current diagnosis for this admission?: Yes (11) HTN (hypertension) Qualifiers: Hypertension type: essential hypertension Qualified Code(s): I10 - Essential (primary) hypertension Is this a current diagnosis for this admission?: Yes Plan: Will give her some IV hydralazine while patient unable to keep p.o. 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
[2017-04-08] MEDS: ARIPIPRAZOLE 5 MG TABLET PO SCH (11:59)
[2017-04-08] MEDS: LIDOCAINE 5% (700 MG) TRANSDERMAL ADH..PATCH TP SCH (11:59)
[2017-04-08] MEDS: ENOXAPARIN SODIUM INJ 30 MG/0.3 ML DISP.SYRIN SUBCUT SCH (11:59)
[2017-04-08] MEDS: VENLAFAXINE HCL 75 MG CAP.SR.24H PO SCH (12:00)
[2017-04-08] MEDS: LEVOFLOXACIN 250 MG TABLET PO SCH (12:00)
[2017-04-08] MEDS: METOPROLOL TARTRATE 25 MG TABLET PO SCH ×2 (12:00→21:34)
[2017-04-08] MEDS: AMLODIPINE BESYLATE 2.5 MG TABLET PO SCH ×2 (12:01→21:35)
[2017-04-08] MEDS: CLOPIDOGREL BISULFATE 75 MG TABLET PO SCH (12:02)
[2017-04-08] MEDS: EZETIMIBE 10 MG TABLET PO SCH (12:02)
[2017-04-08] MEDS: PANTOPRAZOLE SODIUM 40 MG VIAL IV SCH ×2 (14:14→17:19)
--- NOTE | 2017-04-08 14:59 | PDOC PROGRESS REPORT ---
Subjective Progress Note for:: 04/08/17 Subjective:: Patient was sitting up in her chair at the time of examination. She was talking to her sister on the phone. Currently she has no complaints and says that the nausea has gone away. She as also had two small bowel movements. She denies chest pain, SOB, fevers or chills at the time. Currently waiting a stress test and EGD Reason For Visit: N/V,DEHYDRATION,HYPONATREMIA,RENAL FAILURE Physical Exam Vital Signs: Temp Pulse Resp BP Pulse Ox 97.9 F 76 18 145/84 H 97 04/08/17 11:54 04/08/17 13:54 04/08/17 13:54 04/08/17 11:54 04/08/17 13:54 Intake & Output 04/07/17 04/08/17 04/09/17 06:59 06:59 06:59 Intake Total 1520 3830 Output Total 1700 2560 Balance -180 1270 Weight 76.9 kg 77.4 kg General appearance: PRESENT: no acute distress, well-developed, well-nourished Mouth exam: PRESENT: moist, neck supple Respiratory exam: PRESENT: clear to auscultation nuvia. ABSENT: accessory muscle use, crackles, rales, rhonchi, wheezes Cardiovascular exam: PRESENT: +S1, +S2 GI/Abdominal exam: PRESENT: normal bowel sounds, soft. ABSENT: distended, firm , guarding, organomegaly, tenderness Extremities exam: ABSENT: pedal edema, tenderness Musculoskeletal exam: PRESENT: normal inspection. ABSENT: tenderness Neurological exam: PRESENT: alert, awake, oriented to person, oriented to place , oriented to time, oriented to situation Psychiatric exam: PRESENT: appropriate affect, normal mood Skin exam: PRESENT: dry, intact, warm Results Laboratory Results: 04/08/17 05:20 04/08/17 05:20 04/06/17 04/08/17 04/08/17 16:20 05:20 05:20 WBC 9.2 RBC 4.53 Hgb 14.2 Hct 40.9 MCV 90 MCH 31.4 MCHC 34.8 RDW 14.1 H Plt Count 386 Seg Neutrophils % 70.6 Lymphocytes % 21.1 Monocytes % 6.1 Eosinophils % 1.2 Basophils % 1.0 Absolute Neutrophils 6.5 Absolute Lymphocytes 1.9 Absolute Monocytes 0.6 Absolute Eosinophils 0.1 Absolute Basophils 0.1 Sodium 132.0 L Potassium 3.8 Chloride 101 Carbon Dioxide 24 Anion Gap 7 BUN 16 Creatinine 1.47 H Est GFR ( Amer) 44 L Est GFR (Non-Af Amer) 36 L Glucose 117 H Calcium 8.6 Thyroxine (T4) 2.7 L 04/06/17 19:30 Clean Catch Midstream Urine Culture - Final Mixed Urogenital [place] 04/06/17 04/06/17 04/06/17 14:37 14:37 22:27 Creatine Kinase 148 H 151 H CK-MB (CK-2) 4.94 H Troponin I 0.020 04/06/17 04/07/17 04/07/17 22:27 04:54 04:54 Creatine Kinase 107 CK-MB (CK-2) 4.55 3.25 Troponin I 0.021 0.023 04/07/17 04/07/17 10:08 10:08 Creatine Kinase 91 CK-MB (CK-2) 2.55 Troponin I 0.020 Impressions: Chest X-Ray 04/06/17 13:37 IMPRESSION: NO SIGNIFICANT RADIOGRAPHIC FINDING IN THE CHEST. Chest CT 04/07/17 00:00 IMPRESSION: Obstructive lung disease Mild bibasilar atelectasis. Lung Scan-VQ NM 04/07/17 00:00 IMPRESSION: Somewhat limited study as noted above. No definite evidence for pulmonary embolic disease. Assessment & Plan - Diagnosis (1) Hyponatremia Is this a current diagnosis for this admission?: Yes Plan: showing improvement, will continue fluids at current rate (2) Hypokalemia Plan: stable will continue on daily 20mEQ k-rider and re-evaluate tomorrow morning to see if k-rider can be moved to PO potassium or just not need it at all. (3) CKD (chronic kidney disease) stage 3, GFR 30-59 ml/min Plan: at baseline (4) COPD (chronic obstructive pulmonary disease) Qualifiers: COPD type: unspecified COPD Qualified Code(s): J44.9 - Chronic obstructive pulmonary disease, unspecified Is this a current diagnosis for this admission?: Yes Plan: on duonebs (5) Diarrhea Qualifiers: Diarrhea type: unspecified type Qualified Code(s): R19.7 - Diarrhea, unspecified Is this a current diagnosis for this admission?: Yes Plan: resolved (6) Nausea & vomiting Qualifiers: Vomiting Intractability: unspecified Is this a current diagnosis for this admission?: Yes Plan: resolved, continue to monitor (7) HTN (hypertension) Qualifiers: Hypertension type: essential hypertension Qualified Code(s): I10 - Essential (primary) hypertension Is this a current diagnosis for this admission?: Yes Plan: controlled
[2017-04-08] MEDS ORDERED: NORMAL SALINE 1000 ML 1,000 ML IV PRN (16:52)
--- NOTE | 2017-04-08 20:02 | PDOC PROGRESS REPORT ---
Subjective Progress Note for:: 04/08/17 Subjective:: There has been no recurrence of chest pain. Patient seems to be eating and drinking normally. Patient seems to be doing better with significant improvement. Pt is denying any chest arm or neck discomfort. Patient denying any PND, orthopnea. Patient denied any sustained palpitations, dizziness, syncope, near syncope. Patient denying any fever chills. Patient denying any other significant discomfort. Patient is maintaining sinus rhythm. Review of systems: Rest review of systems negative. Medications: Medications have been reviewed. Reason For Visit: N/V,DEHYDRATION,HYPONATREMIA,RENAL FAILURE Physical Exam Vital Signs: Temp Pulse Resp BP Pulse Ox 97.7 F 74 20 153/78 H 100 04/08/17 15:34 04/08/17 15:34 04/08/17 15:34 04/08/17 15:34 04/08/17 15:34 Intake & Output 04/07/17 04/08/17 04/09/17 06:59 06:59 06:59 Intake Total 1520 3830 1994 Output Total 1700 2560 1000 Balance -180 1270 994 Weight 76.9 kg 77.4 kg Exam: GENERAL: well-nourished and in no acute distress. Alert and oriented x3 HEAD: Atraumatic, normocephalic. EYES: Pupils equal round and reactive to light, extraocular movements intact, sclera anicteric, conjunctiva are normal. ENT: TMs normal, nares patent, oropharynx clear without exudates. Moist mucous membranes. No oral ulcerations or bleeding gums noted NECK: supple without lymphadenopathy. Trachea is central. No cervical or axillary lymphadenopathy noted. Carotids are 2+, JVD WNL LUNGS: Respiration seems nonlabored, no significant accessory muscle action noted. Breath sounds clear to auscultation bilaterally and equal noted. No wheezes rales or rhonchi noted. No significant dullness noted on percussion. CHEST: Palpation of the chest wall shows no significant chest wall tenderness. No other significant abnormalities noted. HEART: [place] [employer], No PSH, 1/6 CY aortic area, 1/6 harmon systolic murmur mitral area, no rubs, no gallops. ABDOMEN: Soft, no significant tenderness appreciated, normoactive bowel sounds. No guarding, no rebound. No rigidity noted . No masses appreciated. EXTREMITIES: Pedal pulses are 1-2+, no calf tenderness noted. No clubbing or cyanosis.trace to 1+ pedal edema noted NEUROLOGICAL: Focused neurological exam showed no significant neurologic deficit. Normal speech, no focal weakness appreciated. PSYCH: Normal mood, normal affect. Judgment and insight within normal limits. SKIN: No significant ecchymosis, rash, ulcerations or signs of pruritus noted. MUSCULOSKELETAL EXAM: No significant joint swelling noted. Results Laboratory Results: 04/08/17 05:20 04/08/17 05:20 04/06/17 04/08/17 04/08/17 16:20 05:20 05:20 WBC 9.2 RBC 4.53 Hgb 14.2 Hct 40.9 MCV 90 MCH 31.4 MCHC 34.8 RDW 14.1 H Plt Count 386 Seg Neutrophils % 70.6 Lymphocytes % 21.1 Monocytes % 6.1 Eosinophils % 1.2 Basophils % 1.0 Absolute Neutrophils 6.5 Absolute Lymphocytes 1.9 Absolute Monocytes 0.6 Absolute Eosinophils 0.1 Absolute Basophils 0.1 Sodium 132.0 L Potassium 3.8 Chloride 101 Carbon Dioxide 24 Anion Gap 7 BUN 16 Creatinine 1.47 H Est GFR ( Amer) 44 L Est GFR (Non-Af Amer) 36 L Glucose 117 H Calcium 8.6 Thyroxine (T4) 2.7 L 04/06/17 19:30 Clean Catch Midstream Urine Culture - Final Mixed Urogenital Agueda 04/06/17 04/06/17 04/06/17 14:37 14:37 22:27 Creatine Kinase 148 H 151 H CK-MB (CK-2) 4.94 H Troponin I 0.020 04/06/17 04/07/17 04/07/17 22:27 04:54 04:54 Creatine Kinase 107 CK-MB (CK-2) 4.55 3.25 Troponin I 0.021 0.023 04/07/17 04/07/17 10:08 10:08 Creatine Kinase 91 CK-MB (CK-2) 2.55 Troponin I 0.020 EKG Comments: Shows sinus rhythm, no acute ST-T wave changes or cardiac dysrhythmia noted on telemetry monitoring Impressions: Chest X-Ray 04/06/17 13:37 IMPRESSION: NO SIGNIFICANT RADIOGRAPHIC FINDING IN THE CHEST. Chest CT 04/07/17 00:00 IMPRESSION: Obstructive lung disease Mild bibasilar atelectasis. Lung Scan-VQ NM 04/07/17 00:00 IMPRESSION: Somewhat limited study as noted above. No definite evidence for pulmonary embolic disease. Assessment & Plan - Diagnosis (1) Chest pain Qualifiers: Chest pain type: unspecified Qualified Code(s): R07.9 - Chest pain, unspecified Is this a current diagnosis for this admission?: Yes (2) CAD (coronary artery disease) Qualifiers: Coronary Disease-Associated Artery/Lesion type: [place] artery [place] vs. transplanted heart: [place] heart Associated angina: angina presence unspecified Qualified Code(s): I25.10 - Atherosclerotic heart disease of [place] coronary artery without angina pectoris Is this a current diagnosis for this admission?: Yes (3) Nausea & vomiting Qualifiers: Vomiting Intractability: unspecified Is this a current diagnosis for this admission?: Yes (4) Bipolar disorder Qualifiers: Active/Remission status: currently active Is this a current diagnosis for this admission?: Yes (5) HLD (hyperlipidemia) Qualifiers: Hyperlipidemia type: pure hypercholesterolemia Qualified Code(s): E78.00 - Pure hypercholesterolemia, unspecified Is this a current diagnosis for this admission?: Yes (6) HTN (hypertension) Qualifiers: Hypertension type: essential hypertension Qualified Code(s): I10 - Essential (primary) hypertension Is this a current diagnosis for this admission?: Yes (7) Cigarette smoker Is this a current diagnosis for this admission?: Yes - Notes Notes: Chest pain to be evaluated by nuclear stress test tomorrow. Patient claims stress induced chest pain. She claims that stress of upper GI endoscopy caused her to have chest pain. However will evaluate this symptom with a nuclear stress test tomorrow. Unfortunately nuclear stress test could not be performed today due to protocol from nuclear medicine and VQ scan being performed yesterday. Coronary artery disease: Symptomatically stable today Bipolar disorder: Stable Hypertension: Blood pressure reasonably well controlled. Dyslipidemia: Continue statin therapy History of tobacco abuse: Patient was advised to quit smoking. - Time Time with patient: 15-25 minutes - CODE STATUS was discussed, patient remains full code. Surrogate decision-maker unchanged. Multiple medical problems were addressed. More than 50% of the time spent coordinating care, discussing management plans with involved caregivers. Management plans discussed with involved personnels. Medical decision making was of moderate to high complexity , patient's has multiple comorbidities. Medications reviewed and adjusted accordingly: Yes
[2017-04-08] MEDS: LISINOPRIL 10 MG TABLET PO SCH (21:34)
[2017-04-08] MEDS: CETIRIZINE 5 MG TABLET PO SCH (21:34)
[2017-04-08] MEDS: QUETIAPINE FUMARATE 100 MG TABLET PO SCH (21:35)
[2017-04-08] MEDS: ATORVASTATIN CALCIUM 10 MG TABLET PO SCH (21:35)
[2017-04-08] MEDS: MIRTAZAPINE 15 MG TABLET PO SCH (21:35)
[2017-04-09] MEDS: THYROID (PORK) 60 MG TABLET PO SCH (05:04)
[2017-04-09 05:47] LABS: ABSOLUTE BASOPHILS # (AUTO) 0.1 10^3/uL (0.0-0.2); ABSOLUTE EOSINOPHILS # (AUTO) 0.2 10^3/uL (0.0-0.6); ABSOLUTE LYMPHOCYTES (AUTO) 1.9 10^3/uL (0.5-4.7); ABSOLUTE MONOCYTES (AUTO) 0.6 10^3/uL (0.1-1.4); EOSINOPHILS % (AUTO) 1.5 % (0-6); HEMATOCRIT 41.5 % (36.0-47.0); HEMOGLOBIN 14.4 g/dL (12.0-15.5); LYMPHOCYTES % (AUTO) 19.7 % (13-45); MEAN CORPUSCULAR HEMOGLOBIN 31.6 pg (27.0-33.4); MEAN CORPUSCULAR HGB CONC 34.7 g/dL (32.0-36.0); MEAN CORPUSCULAR VOLUME 91 fl (80-97); MONOCYTES % (AUTO) 5.8 % (3-13); PLATELET COUNT 459 10^3/uL (150-450); RED BLOOD COUNT 4.55 10^6/uL (3.72-5.28); RED CELL DISTRIBUTION WIDTH 14.2 % (11.5-14.0); TOTAL CELLS COUNTED % (AUTO) 100 %; WHITE BLOOD COUNT 9.8 10^3/uL (4.0-10.5)
[2017-04-09 06:08] LABS: ANION GAP 7 (5-19); BLOOD UREA NITROGEN 17 mg/dL (7-20); CALCIUM 9.4 mg/dL (8.4-10.2); CARBON DIOXIDE 27 mmol/L (22-30); CHLORIDE 101 mmol/L (98-107); GLUCOSE 94 mg/dL (75-110); SODIUM 134.5 mmol/L (137-145)
[2017-04-09 06:22] LABS: POTASSIUM 4.9 mmol/L (3.6-5.0)
[2017-04-09] MEDS: IPRATROPIUM/ALBUTEROL 0.5-2.5 MG/3 ML AMPUL NEB SCH ×2 (08:12→13:43)
[2017-04-09] MEDS: PANTOPRAZOLE SODIUM 40 MG VIAL IV SCH (10:55)
[2017-04-09] MEDS: ARIPIPRAZOLE 5 MG TABLET PO SCH (10:55)
[2017-04-09] MEDS: AMLODIPINE BESYLATE 2.5 MG TABLET PO SCH (10:55)
[2017-04-09] MEDS: CLOPIDOGREL BISULFATE 75 MG TABLET PO SCH (10:55)
[2017-04-09] MEDS: ENOXAPARIN SODIUM INJ 30 MG/0.3 ML DISP.SYRIN SUBCUT SCH (10:55)
[2017-04-09] MEDS: VENLAFAXINE HCL 75 MG CAP.SR.24H PO SCH (10:55)
[2017-04-09] MEDS: LIDOCAINE 5% (700 MG) TRANSDERMAL ADH..PATCH TP SCH (10:55)
[2017-04-09] MEDS: EZETIMIBE 10 MG TABLET PO SCH (10:55)
[2017-04-09] MEDS: LEVOFLOXACIN 250 MG TABLET PO SCH (10:55)
[2017-04-09] MEDS: METOPROLOL TARTRATE 25 MG TABLET PO SCH (11:14)
--- NOTE | 2017-04-09 11:14 | PDOC PROGRESS REPORT ---
Subjective Progress Note for:: 04/09/17 Subjective:: Patient was sitting up comfortably in her chair. She is currently NPO awaiting a stress test and an EGD. She denies chest pain, SOB, nausea, vomiting, diarrhea or constipation. Reason For Visit: N/V,DEHYDRATION,HYPONATREMIA,RENAL FAILURE Physical Exam Vital Signs: Temp Pulse Resp BP Pulse Ox 97.7 F 84 18 140/80 H 98 04/09/17 07:53 04/09/17 08:12 04/09/17 08:12 04/09/17 07:53 04/09/17 08:12 Intake & Output 04/08/17 04/09/17 04/10/17 06:59 06:59 06:59 Intake Total 3830 2954 Output Total 2560 3000 Balance 1270 -46 Weight 77.4 kg 78.5 kg General appearance: PRESENT: no acute distress, well-developed, well-nourished Respiratory exam: PRESENT: clear to auscultation nuvia. ABSENT: accessory muscle use, crackles, rales, rhonchi, wheezes Cardiovascular exam: PRESENT: RRR, +S1, +S2 GI/Abdominal exam: PRESENT: normal bowel sounds, soft. ABSENT: distended, firm , guarding, organomegaly, tenderness Extremities exam: ABSENT: pedal edema, tenderness Musculoskeletal exam: PRESENT: normal inspection. ABSENT: tenderness Neurological exam: PRESENT: alert, awake, oriented to person, oriented to place , oriented to time, oriented to situation Psychiatric exam: PRESENT: appropriate affect, normal mood Skin exam: PRESENT: dry, intact, warm Results Laboratory Results: 04/09/17 05:04 04/09/17 05:04 04/09/17 04/09/17 05:04 05:04 WBC 9.8 RBC 4.55 Hgb 14.4 Hct 41.5 MCV 91 MCH 31.6 MCHC 34.7 RDW 14.2 H Plt Count 459 H Seg Neutrophils % 72.0 Lymphocytes % 19.7 Monocytes % 5.8 Eosinophils % 1.5 Basophils % 1.0 Absolute Neutrophils 7.0 Absolute Lymphocytes 1.9 Absolute Monocytes 0.6 Absolute Eosinophils 0.2 Absolute Basophils 0.1 Sodium 134.5 L Potassium 4.9 D Chloride 101 Carbon Dioxide 27 Anion Gap 7 BUN 17 Creatinine 1.50 H Est GFR ( Amer) 43 L Est GFR (Non-Af Amer) 35 L Glucose 94 Calcium 9.4 04/06/17 19:30 Clean Catch Midstream Urine Culture - Final Mixed Urogenital Agueda 04/06/17 04/06/17 04/06/17 14:37 14:37 22:27 Creatine Kinase 148 H 151 H CK-MB (CK-2) 4.94 H Troponin I 0.020 04/06/17 04/07/17 04/07/17 22:27 04:54 04:54 Creatine Kinase 107 CK-MB (CK-2) 4.55 3.25 Troponin I 0.021 0.023 04/07/17 04/07/17 10:08 10:08 Creatine Kinase 91 CK-MB (CK-2) 2.55 Troponin I 0.020 Impressions: Chest X-Ray 04/06/17 13:37 IMPRESSION: NO SIGNIFICANT RADIOGRAPHIC FINDING IN THE CHEST. Chest CT 04/07/17 00:00 IMPRESSION: Obstructive lung disease Mild bibasilar atelectasis. Lung Scan-VQ NM 04/07/17 00:00 IMPRESSION: Somewhat limited study as noted above. No definite evidence for pulmonary embolic disease. Assessment & Plan - Diagnosis (1) Hyponatremia Is this a current diagnosis for this admission?: Yes Plan: showing improvement, almost to baseline. If discharged after her test she would need to fluid restrict to prevent from future hyponatremia. (2) Hypokalemia Plan: currently at 4.9, discontinued potassium supplements (3) CKD (chronic kidney disease) stage 3, GFR 30-59 ml/min Plan: currently stable, patient is already schedule with me in 3 months to evaluate her kidney function. She does not need to schedule an appointment any sooner. (4) COPD (chronic obstructive pulmonary disease) Qualifiers: COPD type: unspecified COPD Qualified Code(s): J44.9 - Chronic obstructive pulmonary disease, unspecified Is this a current diagnosis for this admission?: Yes (5) Diarrhea Qualifiers: Diarrhea type: unspecified type Qualified Code(s): R19.7 - Diarrhea, unspecified Is this a current diagnosis for this admission?: Yes Plan: resolved (6) Nausea & vomiting Qualifiers: Vomiting Intractability: unspecified Is this a current diagnosis for this admission?: Yes Plan: resolved (7) HTN (hypertension) Qualifiers: Hypertension type: essential hypertension Qualified Code(s): I10 - Essential (primary) hypertension Is this a current diagnosis for this admission?: Yes Plan: controlled
[2017-04-09] MEDS ORDERED: NALOXONE HCL INJ/PF 0.4 MG/1 ML SDV ONE (12:26)
[2017-04-09] MEDS ORDERED: DIPHENHYDRAMINE HCL 50 MG/ML VIAL ONE (12:26)
[2017-04-09] MEDS ORDERED: ONDANSETRON HCL INJ/PF 4 MG/2 ML SDV ONE (12:26)
[2017-04-09] MEDS ORDERED: FENTANYL CITRATE INJ/PF 100 MCG/2 ML AMPUL ONE (12:27)
[2017-04-09] MEDS ORDERED: FLUMAZENIL INJ 0.5 MG/5 ML VIAL ONE (12:27)
[2017-04-09] MEDS ORDERED: MIDAZOLAM 2 MG/2 ML INJ ONE (12:27)
[2017-04-09] MEDS ORDERED: GLUCAGON,HUMAN RECOMB 1 MG INJ ONE (12:28)
[2017-04-09] MEDS ORDERED: EPINEPHRINE INJ 1 MG/10 ML DISP.SYRIN ONE (12:28)
[2017-04-09] MEDS: MIDAZOLAM 2 MG/2 ML INJ ONE ×2 (12:46→12:50)
--- NOTE | 2017-04-09 12:55 | Operative Report ---
Operative Report DATE OF SURGERY: 04/09/17 Operative Report: The risks benefits and alternatives of the procedure explained to the patient in detail and informed consent is obtained.A GIF Olympus video scope was inserted into the patient's mouth and hypopharynx, the esophagus is identified intubated and insufflated, the scope was then advanced through the esophagus stomach and duodenum, retroflexion maneuver is done, the esophagus stomach and first and second portions of the duodenum examined PREOPERATIVE DIAGNOSIS: Nausea vomiting. Negative Cardiolite stress test POSTOPERATIVE DIAGNOSIS: Gastritis status post biopsy rule out Helicobacter pylori. Duodenitis. No ulcers noted. Esophagitis versus Fabian's status post biopsy OPERATION: EGD with biopsy SURGEON: LIZZETTE JEFFREY ANESTHESIA: Moderate Sedation - 4 mg of Versed, 50 mcg of fentanyl. Conscious sedation monitoring time 30 minutes. TISSUE REMOVED OR ALTERED: Gastric mucosal specimen obtained to rule out Helicobacter pylori COMPLICATIONS: None. ESTIMATED BLOOD LOSS: None. INTRAOPERATIVE FINDINGS: As noted above. PROCEDURE: Patient tolerated procedure well. No immediate postprocedure complications are noted. Patient sent back to her room in good condition. Resume regular diet. Resume previous activity level. We will wait on pathology Unless there are other issues patient could be likely discharged and follow-up as an outpatient.
--- NOTE | 2017-04-09 17:06 | PDOC DISCHARGE SUMMARY ---
General - Admit/Disc Date/PCP Admission Date/Primary Care Provider: 04/06/17 13:18 TYRON WOODALL MD Discharge Date: 04/09/17 - Discharge Diagnosis (1) Intractable nausea and vomiting Is this a current diagnosis for this admission?: Yes Summary: Currently all resolved status post endoscopy most likely a gastritis and follow- up outpatients Dr. Coombs and continues to PPI (2) Diarrhea Is this a current diagnosis for this admission?: Yes Summary: No diarrhea appreciated in the hospitals (3) Dehydration Is this a current diagnosis for this admission?: Yes Summary: Currently all resolved (4) Hyponatremia Is this a current diagnosis for this admission?: Yes Summary: Currently all resolved (5) Acute renal failure Is this a current diagnosis for this admission?: Yes Summary: Patient's baseline creatinine is 1.5 and follow with the Dr. Mabry as outpatient (6) Bipolar disorder Is this a current diagnosis for this admission?: Yes Summary: Currently follow with the psych (7) CAD (coronary artery disease) Is this a current diagnosis for this admission?: Yes Summary: Patient seen by the cardiology and echocardiogram and stress test was done is all stable discussed with the aggressive risk factor management and discussed with about the smoking suggestions (8) CVA (cerebral vascular accident) Is this a current diagnosis for this admission?: Yes (9) Cigarette smoker Is this a current diagnosis for this admission?: Yes Summary: Patient still continues to smoke even the hospital and discussed with the patient about the smoking counseling and patient understand very well about the smoking with the multiple comorbidity (10) HLD (hyperlipidemia) Is this a current diagnosis for this admission?: Yes Summary: Continues to current medications (11) HTN (hypertension) Is this a current diagnosis for this admission?: Yes Summary: Currently all stable (12) COPD (chronic obstructive pulmonary disease) Is this a current diagnosis for this admission?: Yes Summary: Continues to current inhaler and discussed with the patient about to quit smoking - Additional Information Resuscitation Status: Full Code Discharge Diet: Diabetic Discharge Activity: Activity As Tolerated Prescriptions: Omeprazole 40 mg PO DAILY #30 capsule. Home Medications: Amlodipine Besylate [Norvasc 2.5 mg Tablet] 2.5 mg PO Q12 04/06/17 Aripiprazole [Abilify 30 mg Tablet] 30 mg PO DAILY 04/06/17 Atorvastatin Calcium [Lipitor 10 mg Tablet] 10 mg PO QHS 04/06/17 Clopidogrel Bisulfate [Plavix 75 mg Tablet] 75 mg PO DAILY 04/06/17 Docusate Sodium [Colace 100 mg Capsule] 100 mg PO BID 04/06/17 Ezetimibe [Zetia 10 mg Tablet] 10 mg PO DAILY 04/06/17 Fenofibrate 160 mg PO DAILY 04/06/17 Levocetirizine Dihydrochloride [Xyzal] 5 mg PO QHS 04/06/17 Lisinopril [Prinivil 10 mg Tablet] 10 mg PO QHS 04/06/17 Metoprolol Tartrate [Lopressor 25 mg Tablet] 25 mg PO Q12 04/06/17 Mirtazapine [Remeron] 30 mg PO QHS 04/06/17 Ondansetron HCl [Zofran 4 mg Tablet] 4 mg PO DAILY 04/06/17 Quetiapine Fumarate [Seroquel] 100 mg PO QHS 04/06/17 Thyroid,Pork [[place] Thyroid] 90 mg PO Q6AM 04/06/17 Omeprazole 40 mg PO DAILY #30 capsule. 04/09/17 Venlafaxine HCl [Effexor Xr] 150 mg PO DAILY #0 04/09/17 History of Present Illness History of Present Illness: CRISTIANE LOVE is a 61 year old female This is a 61-year-old female with a 3 days history of nausea vomiting and as well as a loose stools came to the office todayWith the follow-up from yesterday visit Patient have a sodium level was 125 yesterday today since the sameAnd the patient CT abdomen pelvis did not show any acute except mild ileusBut patient unable to keep it downNot even her blood pressure medications At this point because of the hyponatremia and intractable nausea and vomiting decided to admit in the hospital for further evaluations Discussed with the patient and the caregiverAnd agree to go to the hospitalPatient also have recently a colonoscopy done at [facility], [place] but no reports available. Patient has significant other medical comorbidity including the coronary disease history of the COPD and history of the chronic kidney disease and a history of the stroke Patient also see outpatients Dr. Mabry recently and have ultrasound of the kidney and vascular ultrasound was done was all stable Hospital Course Hospital Course: There is a 61-year-old female Came to the office with intractable nausea and vomiting's and patient have outpatient CT scan of the abdomen and pelvis was done with some some mild ileus but other than that no other acute abnormalities but patient still not feeling well so decided to admit directly in the hospital for further evaluation and treatment and IV fluid Patient was started on IV fluids and IV medications and patient was also found some acute renal failure and patient was started complaint with chest pain and cardiology was consulted Reason also hyponatremic and hypokalemic which is also replace Nephrology Dr. Mabry was also consulted Patient underwent for the echocardiogram and a stress test per cardiology and all stable and discussed with the cardiology and suggest a discharge the patient in follow-up outpatients with the Aggressive control the risk factors Patient underwent for the endoscopy per Dr. Coombs's and suggest to start the patient on a PPI and follow-up outpatients Patient's tolerated the p.o. food very well without any problems no more nausea no vomiting And patient had a VQ scan which patient unable to finish it but no pulmonary emboli Patient's also continues to smoke him in the hospital and discussed with the patient's about that causing the more problems but Discussed with the patient's sister and all about my about the patient's conditions couple of time from my officeAnd also Discussed with the patient about the patient does not have any family member he will be arrange the home health and to follow outpatient in 1 week Physical Exam Vital Signs: Temp Pulse Resp BP Pulse Ox 97.5 F 73 20 140/80 H 100 04/09/17 16:47 04/09/17 16:47 04/09/17 16:47 04/09/17 16:47 04/09/17 16:47 Intake & Output 04/08/17 04/09/17 04/10/17 06:59 06:59 06:59 Intake Total 3830 2954 150 Output Total 2560 3000 Balance 1270 -46 150 Weight 77.4 kg 78.5 kg General appearance: PRESENT: no acute distress, well-developed, well-nourished Head exam: PRESENT: atraumatic, normocephalic Eye exam: PRESENT: conjunctiva pink, EOMI, PERRLA. ABSENT: scleral icterus Ear exam: PRESENT: normal external ear exam Mouth exam: PRESENT: moist, tongue midline Neck exam: PRESENT: full ROM. ABSENT: carotid bruit, JVD, lymphadenopathy, thyromegaly Respiratory exam: PRESENT: clear to auscultation nuvia Cardiovascular exam: PRESENT: RRR. ABSENT: diastolic murmur, rubs, systolic murmur Pulses: PRESENT: normal dorsalis pedis pul, +2 pedal pulses bilateral Vascular exam: PRESENT: normal capillary refill GI/Abdominal exam: PRESENT: normal bowel sounds, soft. ABSENT: distended, guarding, mass, organolmegaly, rebound, tenderness Rectal exam: PRESENT: deferred Extremities exam: ABSENT: full ROM, left AKA, right AKA, left BKA, right BKA, calf tenderness, joint swelling, pedal edema, tenderness, other Musculoskeletal exam: ABSENT: ambulatory, deformity, dislocation, full ROM, normal inspection, tenderness, other Neurological exam: PRESENT: alert, awake, oriented to person, oriented to place , oriented to time, oriented to situation, CN II-XII grossly intact. ABSENT: motor sensory deficit Psychiatric exam: PRESENT: appropriate affect, normal mood. ABSENT: homicidal ideation, suicidal ideation Skin exam: PRESENT: dry, intact, warm. ABSENT: cyanosis, rash Results Laboratory Results: 04/09/17 05:04 04/09/17 05:04 04/09/17 04/09/17 05:04 05:04 WBC 9.8 RBC 4.55 Hgb 14.4 Hct 41.5 MCV 91 MCH 31.6 MCHC 34.7 RDW 14.2 H Plt Count 459 H Seg Neutrophils % 72.0 Lymphocytes % 19.7 Monocytes % 5.8 Eosinophils % 1.5 Basophils % 1.0 Absolute Neutrophils 7.0 Absolute Lymphocytes 1.9 Absolute Monocytes 0.6 Absolute Eosinophils 0.2 Absolute Basophils 0.1 Sodium 134.5 L Potassium 4.9 D Chloride 101 Carbon Dioxide 27 Anion Gap 7 BUN 17 Creatinine 1.50 H Est GFR ( Amer) 43 L Est GFR (Non-Af Amer) 35 L Glucose 94 Calcium 9.4 04/06/17 04/06/17 04/06/17 14:37 14:37 22:27 Creatine Kinase 148 H 151 H CK-MB (CK-2) 4.94 H Troponin I 0.020 04/06/17 04/07/17 04/07/17 22:27 04:54 04:54 Creatine Kinase 107 CK-MB (CK-2) 4.55 3.25 Troponin I 0.021 0.023 04/07/17 04/07/17 10:08 10:08 Creatine Kinase 91 CK-MB (CK-2) 2.55 Troponin I 0.020 Impressions: Chest X-Ray 04/06/17 13:37 IMPRESSION: NO SIGNIFICANT RADIOGRAPHIC FINDING IN THE CHEST. Chest CT 04/07/17 00:00 IMPRESSION: Obstructive lung disease Mild bibasilar atelectasis. Lung Scan-VQ NM 04/07/17 00:00 IMPRESSION: Somewhat limited study as noted above. No definite evidence for pulmonary embolic disease. Plan Time Spent: Greater than 30 Minutes - Discussed with the patient about the compliance of the medications andAnd do not smoke and at the patient's noncompliance with the medication and still continues to smoke patients mainly history of multiple cardio neuro complications patient understand very well with the multiple comorbidity
[2017-04-09 18:05] VITALS: BP 150/69
--- NOTE | 2017-04-09 18:48 | PDOC PROGRESS REPORT ---
Subjective Progress Note for:: 04/09/17 Subjective:: There has been no recurrence of chest pain. Patient seems to be eating and drinking normally. Patient seems to be doing better with significant improvement. Pt is denying any chest arm or neck discomfort. Patient denying any PND, orthopnea. Patient denied any sustained palpitations, dizziness, syncope, near syncope. Patient denying any fever chills. Patient denying any other significant discomfort. Patient is maintaining sinus rhythm. Nuclear stress test procedure was explained to the patient in detail. Risks benefits were discussed and informed consent was obtained. Alternatives were discussed. Patient informed that based on risk factors, physical exam, lab data findings and symptoms there is at least intermediate probability of underlying CAD. Nuclear stress test procedure was therefore scheduled. Review of systems: Rest review of systems negative. Medications: Medications have been reviewed. Reason For Visit: N/V,DEHYDRATION,HYPONATREMIA,RENAL FAILURE Physical Exam Vital Signs: Temp Pulse Resp BP Pulse Ox 97.5 F 73 20 140/80 H 100 04/09/17 16:47 04/09/17 16:47 04/09/17 16:47 04/09/17 16:47 04/09/17 16:47 Intake & Output 04/08/17 04/09/17 04/10/17 06:59 06:59 06:59 Intake Total 3830 2954 630 Output Total 2560 3000 900 Balance 1270 -46 -270 Weight 77.4 kg 78.5 kg Exam: GENERAL: well-nourished and in no acute distress. Alert and oriented x3 HEAD: Atraumatic, normocephalic. EYES: Pupils equal round and reactive to light, extraocular movements intact, sclera anicteric, conjunctiva are normal. ENT: TMs normal, nares patent, oropharynx clear without exudates. Moist mucous membranes. No oral ulcerations or bleeding gums noted NECK: supple without lymphadenopathy. Trachea is central. No cervical or axillary lymphadenopathy noted. Carotids are 2+, JVD WNL LUNGS: Respiration seems nonlabored, no significant accessory muscle action noted. Breath sounds clear to auscultation bilaterally and equal noted. No wheezes rales or rhonchi noted. No significant dullness noted on percussion. CHEST: Palpation of the chest wall shows no significant chest wall tenderness. No other significant abnormalities noted. HEART: [place] SIGN LANGUAGE TRANSLATOR, No PSH, 1/6 CY aortic area, 1/6 harmon systolic murmur mitral area, no rubs, no gallops. ABDOMEN: Soft, no significant tenderness appreciated, normoactive bowel sounds. No guarding, no rebound. No rigidity noted . No masses appreciated. EXTREMITIES: Pedal pulses are 1-2+, no calf tenderness noted. No clubbing or cyanosis.trace to 1+ pedal edema noted NEUROLOGICAL: Focused neurological exam showed no significant neurologic deficit. Normal speech, no focal weakness appreciated. PSYCH: Normal mood, normal affect. Judgment and insight within normal limits. SKIN: No significant ecchymosis, rash, ulcerations or signs of pruritus noted. MUSCULOSKELETAL EXAM: No significant joint swelling noted. Results Laboratory Results: 04/09/17 05:04 04/09/17 05:04 04/09/17 04/09/17 05:04 05:04 WBC 9.8 RBC 4.55 Hgb 14.4 Hct 41.5 MCV 91 MCH 31.6 MCHC 34.7 RDW 14.2 H Plt Count 459 H Seg Neutrophils % 72.0 Lymphocytes % 19.7 Monocytes % 5.8 Eosinophils % 1.5 Basophils % 1.0 Absolute Neutrophils 7.0 Absolute Lymphocytes 1.9 Absolute Monocytes 0.6 Absolute Eosinophils 0.2 Absolute Basophils 0.1 Sodium 134.5 L Potassium 4.9 D Chloride 101 Carbon Dioxide 27 Anion Gap 7 BUN 17 Creatinine 1.50 H Est GFR ( Amer) 43 L Est GFR (Non-Af Amer) 35 L Glucose 94 Calcium 9.4 04/06/17 04/06/17 04/06/17 14:37 14:37 22:27 Creatine Kinase 148 H 151 H CK-MB (CK-2) 4.94 H Troponin I 0.020 04/06/17 04/07/17 04/07/17 22:27 04:54 04:54 Creatine Kinase 107 CK-MB (CK-2) 4.55 3.25 Troponin I 0.021 0.023 04/07/17 04/07/17 10:08 10:08 Creatine Kinase 91 CK-MB (CK-2) 2.55 Troponin I 0.020 EKG Comments: Telemetry shows sinus rhythm, no sustained tachycardia or bradycardia arrhythmias noted. Impressions: Chest X-Ray 04/06/17 13:37 IMPRESSION: NO SIGNIFICANT RADIOGRAPHIC FINDING IN THE CHEST. Chest CT 04/07/17 00:00 IMPRESSION: Obstructive lung disease Mild bibasilar atelectasis. Lung Scan-VQ NM 04/07/17 00:00 IMPRESSION: Somewhat limited study as noted above. No definite evidence for pulmonary embolic disease. Assessment & Plan - Diagnosis (1) Chest pain Qualifiers: Chest pain type: unspecified Qualified Code(s): R07.9 - Chest pain, unspecified Is this a current diagnosis for this admission?: Yes (2) CAD (coronary artery disease) Qualifiers: Coronary Disease-Associated Artery/Lesion type: [place] artery [place] vs. transplanted heart: [place] heart Associated angina: angina presence unspecified Qualified Code(s): I25.10 - Atherosclerotic heart disease of [place] coronary artery without angina pectoris Is this a current diagnosis for this admission?: Yes (3) Nausea & vomiting Qualifiers: Vomiting Intractability: unspecified Is this a current diagnosis for this admission?: Yes (4) Bipolar disorder Qualifiers: Active/Remission status: currently active Is this a current diagnosis for this admission?: Yes (5) HLD (hyperlipidemia) Qualifiers: Hyperlipidemia type: pure hypercholesterolemia Qualified Code(s): E78.00 - Pure hypercholesterolemia, unspecified Is this a current diagnosis for this admission?: Yes (6) HTN (hypertension) Qualifiers: Hypertension type: essential hypertension Qualified Code(s): I10 - Essential (primary) hypertension Is this a current diagnosis for this admission?: Yes (7) Cigarette smoker Is this a current diagnosis for this admission?: Yes - Notes Notes: Chest pain: Patient claims chest pain is resolved. This was evaluated with a nuclear stress test. Nuclear stress test was negative for any significant areas of ischemia or any significant areas of scar. The nuclear stress test is felt to be relatively low risk. Patient informed that occasionally single- vessel disease and balanced ischemia could be missed. Patient advised aggressive risk factor modification and medical therapy. Patient informed that further evaluation may become necessary if symptoms worsens or there is a development of new symptoms indicative of angina or angina equivalent symptom. CAD: currently symptomatically stable. Patient advised to continue with antiplatelets, statin, beta blockers, SHALOM inhibitor/ARB as tolerated. If patient not on these agents then, could be put on these agents as an outpatient. Patient recommended outpatient follow-up with weatherization coordinator. Nausea and vomiting: Resolved patient noted to be undergoing endoscopy at the time of this discussion. Hyperlipidemia: LDL goal is less than 70. Recommend statin therapy at least intermediate or high dose, of high potency status. Periodic lipid panel and liver panel is indicated. Patient to report any significant muscle discomfort or other side effects. Hypertension: Reasonably well controlled. Blood pressure goal in this patient is 135/85 or less. This was discussed with the patient. Currently blood pressure under reasonable control. Better medication for this patient are SHALOM inhibitor/ARB/beta aston etc. discussed side effects of uncontrolled hypertension and also severe hypotension. Tobacco abuse: Patient has history of chronic smoking. Discussed detrimental effect of chronic smoking including worsening COPD, increased risk of cardiovascular events, cerebrovascular events, cancer and multiple other side effects of smoking. The benefits of smoking cessation discussed. Patient unwilling to give acommitment to quit. Patient informed that we'll be happy to help should pt decide to quit. Continue nicotine patch while inpatient. - Time Time Spent with patient: Patient was seen multiple times. Total time exceeds 40 minutes. In the morning nuclear stress test procedure, risks benefits, alternatives were discussed. Patient seen during the stress test. Patient also seen after stress test when results were discussed with the patient in detail. Patient's questions were answered. Nuclear stress test results were discussed with the patient. Patient was informed that no definitive evidence of pharmacologic stress- induced ischemia noted. No definite fixed defects were noted. Patient informed that occasionally significant single vessel disease or balanced ischemia could be missed. However based on the current study results, would recommend aggressive risk factor modification and medical therapy. It may also be worthwhile to consider evaluation or empiric management of other causes of chest pain. Should no other cause be found and if persistent in having chest pain, then cardiac catheterization should be considered. Right now, recommendations are for aggressive risk factor modification and medical management. Time with patient: Greater than 35 minutes - CODE STATUS was discussed, patient remains full code. Surrogate decision-maker unchanged. Multiple medical problems were addressed. More than 50% of the time spent coordinating care, discussing management plans with involved caregivers. Management plans discussed with involved personnels. Medical decision making was of moderate to high complexity, patient's has multiple comorbidities. Medications reviewed and adjusted accordingly: Yes
--- NOTE | 2017-04-15 11:20 | DRAGON STRESS TEST REPORT ---
INTRAVENOUS LEXISCAN CARDIOLITE STRESS TEST USING SINGLE PHOTON EMMISION COMPUTERIZED TOMOGRAPHIC. DATE OF PROCEDURE: April 09, 2017, INDICATION : Chest pain CARDIAC RISK FACTORS: Hypertension, dyslipidemia RESTING EKG: Sinus rhythm with minor nonspecific ST segment changes STRESS EKG: No significant changes noted with LexiScan bolus REASON FOR TERMINATION: Protocol. PROCEDURE REPORT: Baseline heart rate 73 beats per minute with blood pressure of 149/78. Patient had no significant complaints. Heart rate at 2 minutes post bolus 101 with a blood pressure of 128/77. 3 minutes post bolus heart rate 120 with blood pressure of 136/82. No significant EKG changes were noted. Patient had no significant complaints during the procedure or postprocedure. Patient injected with Aminophyllin 75 mg at 3 minutes or later after Lexiscan bolus. CONCLUSIONS: Normal EKG and hemodynamic response to IV LexiScan. NUCLEAR DATA: At rest the patient was given 11.97 millicuries of technetium 99 sestamibi injected intravenously. As per protocol rest gated SPECT images were obtained. On day of stress test, the patient was given intravenous LexiScan at a dose of 0.4 mg in 5 mL intravenously, followed by flush with normal saline. Subsequently the stress dose of 37.4 millicuries of technetium 99 sestamibi was injected intravenously. As per protocol stress gated images were obtained. NUCLEAR INTERPRETATION: Both raw and processed data were used for interpretation. Visual, qualitative, computer-generated quantitative data was used. There was good myocardial uptake of technetium compound. Motion artifact and soft tissue attenuations were noted. Increased visceral uptake was noted. No definitive areas of transient perfusion defect noted, No definitive areas of fixed perfusion defect or scars noted. EKG gated imaging showed LV EF at 59 %, rest and stress gated EF similar visually. T. I D. ratio was 1.16. Lung heart ratio noted to be within normal limits 0.21. No significant extracardiac and abnormal radiotracer activities were noted. RV free wall uptake was noted to be WNL. IMPRESSION: Also refer to comments under nuclear interpretation. Also test results needs to be interpreted in the context of pretest probability. 1. No definitive areas of transient perfusion defect noted. 2. There is no definitive scintigraphic evidence of myocardial infarction/scar. 3. EKG gated imaging shows left ventricular ejection fraction of approx. 59 %. 4. Clinical correlation requested as occasionally single vessel disease or balanced ischemia could be missed. In approximately 10% of the cases Lexiscan may not cause adequate vasodilatory stress. RECOMMENDATIONS: Aggressive risk factor modification and medical management. Further evaluation may be needed if continued symptoms or other high risk indicators are noted on clinical evaluation. Close cardiology follow-up is also recommended. Clinical correlation with echocardiogram derived ejection fraction. Inability to exercise by itself can lead to increased cardiovascular event risks. Consider cardiology consultation and or follow-up if clinically indicated. I am available for cardiology evaluation and consultation if requested by the primary care coordinator, unless patient already has a dredge master. Interpreting Physician: LENCHO ORTIZ MD [id number] JOB: [id number] CC: > MTDD
== END 2017-04-09 17:30 | disposition home or self-care (01) | DRG 392 ==
LOC: 4N 13:18 → 4S 13:56 → 4N 13:57 → 4W 15:19
PROVIDERS: ADMIT Family Medicine; ATTEND Family Medicine
PROC: 0DB68ZX Excision of Stomach, Via Natural or Artificial Opening Endoscopic, Diagnostic (ICD-10-PCS; 2017-04-09)
PROC: 0DB48ZX Excision of Esophagogastric Junction, Via Natural or Artificial Opening Endoscopic, Diagnostic (ICD-10-PCS; principal; 2017-04-09 12:00)
DX: K29.70 Gastritis, unspecified, without bleeding (principal); N17.9 Acute kidney failure, unspecified; E87.1 Hypo-osmolality and hyponatremia; I25.10 Atherosclerotic heart disease of native coronary artery without angina pectoris; I12.9 Hypertensive chronic kidney disease with stage 1 through stage 4 chronic kidney disease, or unspecified chronic kidney disease; E86.0 Dehydration; E87.6 Hypokalemia; R11.2 Nausea with vomiting, unspecified; R19.7 Diarrhea, unspecified; K29.80 Duodenitis without bleeding; N18.3 Chronic kidney disease, stage 3 (moderate); F17.210 Nicotine dependence, cigarettes, uncomplicated; R07.89 Other chest pain; E11.22 Type 2 diabetes mellitus with diabetic chronic kidney disease; E78.5 Hyperlipidemia, unspecified; K21.9 Gastro-esophageal reflux disease without esophagitis; M19.90 Unspecified osteoarthritis, unspecified site; F31.9 Bipolar disorder, unspecified; F41.1 Generalized anxiety disorder; Z90.49 Acquired absence of other specified parts of digestive tract; Z95.5 Presence of coronary angioplasty implant and graft; Z88.6 Allergy status to analgesic agent; Z91.040 Latex allergy status; Z86.711 Personal history of pulmonary embolism; Z86.73 Personal history of transient ischemic attack (TIA), and cerebral infarction without residual deficits; Z85.3 Personal history of malignant neoplasm of breast; Z79.82 Long term (current) use of aspirin
CPT/HCPCS: 36415; 43239; 71046; 71250; 78452; 78582; 80048; 80053; 81001; 82550; 82553; 82962; 83690; 83930; 83935; 84300; 84436; 84439; 84443; 84481; 84484; 85025; 87040; 87086; 88305; 93005; 93010; 93017; 93306; 94640; A9500; A9540; A9567; J0171; J0280; J0360; J1200; J1610; J1650; J2250; J2310; J2405; J2785; J3010; J3480; J3490; J7030; J7620; Q9969; S0164

== ENCOUNTER → 2017-04-06 | Outpatient (CLI) | payer BC, MEDICAID ==
[2017-04-06 11:22] LABS: ANION GAP 11 (5-19); BLOOD UREA NITROGEN 17 mg/dL (7-20); CALCIUM 9.3 mg/dL (8.4-10.2); CARBON DIOXIDE 26 mmol/L (22-30); CHLORIDE 88 mmol/L (98-107); GLUCOSE 145 mg/dL (75-110); POTASSIUM 3.7 mmol/L (3.6-5.0); SODIUM 124.6 mmol/L (137-145)
--- NOTE | 2017-04-06 12:32 | RADIOLOGY REPORT (SQ) ---
EXAM DESCRIPTION: CT ABD/PELVIS NO ORAL OR IV COMPLETED DATE/TIME: 04/06/2017 11:26 am REASON FOR STUDY: N/V (R11.2), LOWER ABD PAIN (R10.30) R11.2 NAUSEA WITH VOMITING, UNSPECIFIED COMPARISON: CT chest 03/30/2016. 2014. TECHNIQUE: CT scan of the abdomen and pelvis performed without intravenous or oral contrast. Images reviewed with lung, soft tissue, and bone windows. Reconstructed coronal and sagittal MPR images revi ewed. All images stored on PACS. All CT scanners at this facility use dose modulation, iterative reconstruction, and/or weight based d osing when appropriate to reduce radiation dose to as low as reasonably achievable (ALARA). [facility]: Dose Right [facility]: CareDose [facility]: Dose Right [facility]: Teradose 4D [facility]: Smart PatientsLikeMe RADIATION DOSE: CT Rad equipment meets quality standard of care and radiation dose reduction techniq ues were employed. CTDIvol: 10.4 mGy. DLP: 573 mGy-cm.mGy. LIMITATIONS: None. FINDINGS: LOWER CHEST: 3 mm right lower lobe solid-appearing nodule. In retrospect, this was presen t previously and does not appear grossly progressive. NON-CONTRASTED LIVER, SPLEEN, ADRENALS: Evaluation limited by lack of IV contrast. No identified sign ificant masses. PANCREAS: No masses. No peripancreatic inflammatory changes. GALLBLADDER: Status post cholecystectomy with regional clips and dystrophic chronic calcifications. No duct dilatation. RIGHT KIDNEY AND URETER: No solid masses. No significant calcification. No hydronephrosis or hydroure ter. LEFT KIDNEY AND URETER: No solid masses. No significant calcification. No hydronephrosis or hydrouret er. AORTA AND RETROPERITONEUM: Dense aortic calcification without aneurysm. No retroperitoneal mass or a denopathy evident. BOWEL AND PERITONEAL CAVITY: No inflammatory process or suspicious wall thickening. Variable fluid d istention of small bowel loops likely reflecting ileus. No ascites or abnormal gas or bulky adenopat hy/implants. APPENDIX: Not visualized. PELVIS, BLADDER, AND ABDOMINAL WALL:Mildly limited by left hip replacement artifact. As assessed, pe lvis unremarkable. No bowel containing abdominal hernia. BONES: No significant findings. OTHER: No other significant finding. IMPRESSION: 1. Potential mild ileus. 2. Otherwise, no acute or suspicious abdominopelvic abnormali ty. 3. Stable right lower lobe lung nodule, presumably benign. TECHNICAL DOCUMENTATION: JOB ID: [id number] Quality ID # [id number]: Final reports with documentation of one or more dose reduction techniques (e.g., Au tomated exposure control, adjustment of the mA and/or kV according to patient size, use of iterative reconstruction technique) 2010 [employer]- All Rights Reserved
== END ==
LOC: RAD 10:47
PROVIDERS: ATTEND Physician Assistant
DX: E87.1 Hypo-osmolality and hyponatremia (principal); R11.2 Nausea with vomiting, unspecified; R10.30 Lower abdominal pain, unspecified
CPT/HCPCS: 36415; 74176; 80048

== ENCOUNTER → 2017-06-24 | Outpatient (CLI) | payer BC, MEDICAID ==
[2017-06-24 10:16] LABS: HEMATOCRIT 41.7 % (36.0-47.0); HEMOGLOBIN 14.3 g/dL (12.0-15.5); MEAN CORPUSCULAR HGB CONC 34.3 g/dL (32.0-36.0); MEAN CORPUSCULAR VOLUME 90 fl (80-97); PLATELET COUNT 427 10^3/uL (150-450); RED BLOOD COUNT 4.61 10^6/uL (3.72-5.28); RED CELL DISTRIBUTION WIDTH 12.7 % (11.5-14.0); WHITE BLOOD COUNT 7.8 10^3/uL (4.0-10.5)
[2017-06-24 10:46] LABS: ANION GAP 9 (5-19); BLOOD UREA NITROGEN 19 mg/dL (7-20); CALCIUM 9.4 mg/dL (8.4-10.2); CARBON DIOXIDE 29 mmol/L (22-30); CHLORIDE 96 mmol/L (98-107); GLUCOSE 112 mg/dL (75-110); PHOSPHORUS 4.8 mg/dL (2.5-4.5); POTASSIUM 4.3 mmol/L (3.6-5.0); SODIUM 133.9 mmol/L (137-145)
[2017-06-24 10:59] LABS: UR PRO/CREAT RATIO RESULT 15.6 mg/mg (0.0-0.2); URINE CREATININE 11.3 mg/dL (15-278); URINE PROTEIN 175.9 mg/dL (<12)
== END ==
LOC: OD 09:30
PROVIDERS: ATTEND Physician Assistant Medical
DX: I12.9 Hypertensive chronic kidney disease with stage 1 through stage 4 chronic kidney disease, or unspecified chronic kidney disease (principal); N18.3 Chronic kidney disease, stage 3 (moderate); R80.9 Proteinuria, unspecified
CPT/HCPCS: 36415; 80048; 82570; 83970; 84100; 84156; 85027

== ENCOUNTER → 2017-10-29 | Outpatient (CLI) | payer BC, MEDICAID ==
[2017-10-29 09:18] LABS: HEMATOCRIT 41.8 % (36.0-47.0); HEMOGLOBIN 14.4 g/dL (12.0-15.5); MEAN CORPUSCULAR HEMOGLOBIN 30.6 pg (27.0-33.4); MEAN CORPUSCULAR HGB CONC 34.6 g/dL (32.0-36.0); MEAN CORPUSCULAR VOLUME 89 fl (80-97); PLATELET COUNT 444 10^3/uL (150-450); RED BLOOD COUNT 4.71 10^6/uL (3.72-5.28); RED CELL DISTRIBUTION WIDTH 13.5 % (11.5-14.0); WHITE BLOOD COUNT 9.4 10^3/uL (4.0-10.5)
[2017-10-29 09:33] LABS: APPEARANCE,URINE CLEAR; BILIRUBIN,URINE NEGATIVE (NEGATIVE); COLOR,URINE STRAW; GLUCOSE, URINE NEGATIVE (NEGATIVE); KETONES,URINE NEGATIVE (NEGATIVE); LEUKOCYTE ESTERASE,URINE NEGATIVE (NEGATIVE); NITRITE,URINE NEGATIVE (NEGATIVE); PROTEIN,URINE 100 mg/dL (NEGATIVE); URINE SPECIFIC GRAVITY 1.003; UROBILINOGEN,URINE NEGATIVE mg/dL (<2.0)
[2017-10-29 09:50] LABS: ANION GAP 10 (5-19); BLOOD UREA NITROGEN 18 mg/dL (7-20); CALCIUM 9.4 mg/dL (8.4-10.2); CARBON DIOXIDE 28 mmol/L (22-30); CHLORIDE 96 mmol/L (98-107); GLUCOSE 84 mg/dL (75-110); PHOSPHORUS 5.1 mg/dL (2.5-4.5); POTASSIUM 5.2 mmol/L (3.6-5.0); SODIUM 134.1 mmol/L (137-145)
[2017-10-29 10:43] LABS: UR PRO/CREAT RATIO RESULT 10.8 mg/mg (0.0-0.2); URINE CREATININE 13.1 mg/dL (15-278); URINE PROTEIN 142.1 mg/dL (<12)
== END ==
LOC: OD 08:30
PROVIDERS: ATTEND Physician Assistant Medical
DX: I12.9 Hypertensive chronic kidney disease with stage 1 through stage 4 chronic kidney disease, or unspecified chronic kidney disease (principal); N18.3 Chronic kidney disease, stage 3 (moderate); R80.9 Proteinuria, unspecified
CPT/HCPCS: 36415; 80048; 81001; 82570; 83970; 84100; 84156; 85027

== ENCOUNTER → 2018-02-01 | Outpatient (CLI) | payer BC, MEDICAID ==
--- NOTE | 2018-02-01 10:56 | RADIOLOGY REPORT (SQ) ---
EXAM DESCRIPTION: CHEST PA/LATERAL COMPLETED DATE/TIME: 02/01/2018 9:34 am REASON FOR STUDY: COUGH COMPARISON: 04/06/2017, 08/28/2016, 04/11/2016 CT chest 04/07/2017 EXAM PARAMETERS: NUMBER OF VIEWS: two views TECHNIQUE: Digital Frontal and Lateral radiographic views of the chest acquired. RADIATION DOSE: NA LIMITATIONS: none FINDINGS: LUNGS AND PLEURA: Lungs are hyperinflated from obstructive disease. Mild increased inters titial markings from superimposed fibrosis around the periphery. No acute infiltrates. No pleural effusion or pneumothorax. MEDIASTINUM AND HILAR STRUCTURES: No masses or contour abnormalities. HEART AND VASCULAR STRUCTURES: Heart normal size. No evidence for failure. BONES: No acute findings. HARDWARE: Clips post thyroidectomy. Old left mastectomy with breast implant OTHER: Dilated stomach small bowel and colon under the hemidiaphragms IMPRESSION: No acute infiltrates or pleural effusion Dilated stomach small bowel and colon under the hemidiaphragms TECHNICAL DOCUMENTATION: JOB ID: [id number] 2003 [employer]Exactly- All Rights Reserved Reading location - IP/workstation name: [email or web address]
== END ==
LOC: OD 09:19
PROVIDERS: ATTEND Family Medicine
DX: J84.10 Pulmonary fibrosis, unspecified (principal); R05 Cough
CPT/HCPCS: 71046

== ENCOUNTER 2018-02-10 19:10 | Inpatient (IN) | payer BC, MEDICAID ==
[2018-02-10] MEDS ORDERED: HYDROMORPHONE HCL INJ/PF 2 MG/ML AMPULE IV ONE (21:21)
--- NOTE | 2018-02-10 21:26 | ER Document Report ---
ED General - General Chief Complaint: Leg Pain Stated Complaint: LEG PAIN Time Seen by Provider: 02/10/18 21:09 Mode of Arrival: Medic Information source: Patient, Emergency Med Personnel Notes: This is a 62-year-old female with a history of COPD, arthritis, hypertension who states she has a difficult time ambulating because of chronic arthritic pain. Patient states she is fallen twice in the past week. She presents with bilateral hip pain, bilateral knee pain and low back pain. She states that the low back pain is chronic and not as bad as the hips and knee. She does report that she had her head she denies significant loss of consciousness. She does report using marijuana and heroin. TRAVEL OUTSIDE OF THE [place] IN LAST 30 DAYS: No - HPI Onset: Last week Onset/Duration: Gradual Quality of pain: Dull Severity: Moderate Pain Level: 2 Associated symptoms: Nonproductive cough, Other - Back pain and lower extremity bilateral pain. denies: Fever, Shortness of breath Exacerbated by: Movement Relieved by: Remaining still Similar symptoms previously: Yes Recently seen / treated by doctor: Yes - Related Data Allergies/Adverse Reactions: codeine Allergy (Verified 03/03/17 06:28) Itching latex Allergy (Verified 03/03/17 06:28) Hives liothyronine [From Cytomel] Allergy (Verified 04/06/17 15:32) Shortness of Breath morphine [Morphine] Allergy (Verified 03/03/17 06:28) Itching nalbuphine [From Nubain] Allergy (Verified 03/03/17 06:28) Itching hydrocodone Adverse Reaction (Mild, Verified 04/06/17 15:31) Rash plastic tape Allergy (Uncoded 03/03/17 06:28) Itching Past Medical History - General Information source: Patient - Social History Smoking Status: Current Every Day Smoker Cigarette use (# per day): Yes - 2 packs/day Chew tobacco use (# tins/day): No Smoking Education Provided: Yes Frequency of alcohol use: None Drug Abuse: Heroin, Marijuana Lives with: Other - Lives with one other person Family History: CAD Patient has suicidal ideation: No Patient has homicidal ideation: No - Past Medical History Cardiac Medical History: Reports: Hx Coronary Artery Disease, Hx Hypercholesterolemia, Hx Hypertension, Hx Pulmonary Embolism Denies: Hx Heart Attack Pulmonary Medical History: Reports: Hx Asthma, Hx Bronchitis, Hx COPD, Hx Pneumonia, Hx Sleep Apnea Denies: Hx Tuberculosis Neurological Medical History: Reports: Hx Cerebrovascular Accident - Weakness Rt Leg, uses cane. Denies: Hx Seizures Endocrine Medical History: Reports: Hx Diabetes Mellitus Type 2 Renal/ Medical History: Denies: Hx Peritoneal Dialysis Malignancy Medical History: Reports: Hx Breast Cancer GI Medical History: Reports: Hx Gastroesophageal Reflux Disease Musculoskeletal Medical History: Reports Hx Arthritis Psychiatric Medical History: Reports: Hx Bipolar Disorder, Hx Depression Past Surgical History: Reports: Hx Appendectomy, Hx Cardiac Catheterization - stent x 1, Hx Cholecystectomy, Hx Mastectomy - left side, pt states many years ago, Hx Thyroid Surgery - Immunizations Hx Diphtheria, Pertussis, Tetanus Vaccination: Yes Hx Pneumococcal Vaccination: 11/29/16 Review of Systems - Review of Systems Constitutional: No symptoms reported. denies: Chills, Fever EENT: No symptoms reported Cardiovascular: denies: Chest pain, Palpitations, Heart racing Respiratory: Cough. denies: Short of breath, Wheezing Gastrointestinal: No symptoms reported Genitourinary: No symptoms reported Female Genitourinary: No symptoms reported Musculoskeletal: See HPI Skin: No symptoms reported Hematologic/Lymphatic: No symptoms reported Neurological/Psychological: No symptoms reported Physical Exam - Vital signs Vitals: Temp Pulse Resp BP Pulse Ox 97.7 F 74 18 137/75 H 92 02/10/18 19:17 02/10/18 19:17 02/10/18 19:17 02/10/18 19:17 02/10/18 19:17 Notes: Physical exam: GENERAL: 62-year-old female, alert and oriented x3. Complaining of diffuse musculoskeletal pain. HEAD: Atraumatic, normocephalic. EYES: Pupils equal round and reactive to light, extraocular movements intact, sclera anicteric, conjunctiva are normal. ENT: TMs normal, nares patent, oropharynx clear without exudates. Moist mucous membranes. NECK: Normal range of motion, supple without obvious mass or JVD. LUNGS: Breath sounds clear to auscultation bilaterally and equal. No wheezes rales or rhonchi. HEART: Regular rate and rhythm without murmurs, rubs or gallops. ABDOMEN: Soft, normoactive bowel sounds. No tenderness to palpation. No guarding, no rebound. No masses appreciated. EXTREMITIES: Patient has pain with range of motion of the hips bilaterally as well as the knees bilaterally. She does have contusions over both knees. No obvious effusions. She does have good DP pulses distally and cap refill distally. Sensation is intact. NEUROLOGICAL: Cranial nerves II through XII grossly intact. Normal speech, moving all extremities. PSYCH: Normal mood, normal affect. SKIN: Warm, Dry, normal turgor, no rashes or lesions noted. Course - Re-evaluation Re-evalutation: 02/11/18 00:28 Note: The patient has had multiple falls over the last week and has a small patellar fracture. She does appear dehydrated and she is got evidence of acute kidney injury. The concern is that she will fall again and have worsening endorgan injury. The plan will be to bring her in for IV fluids, serial renal function tests, physical therapy and orthopedic consultation. - Vital Signs Vital signs: Temp Pulse Resp BP Pulse Ox 97.7 F 74 18 137/75 H 92 02/10/18 19:17 02/10/18 19:17 02/10/18 19:17 02/10/18 19:17 02/10/18 19:17 - Laboratory Result Diagrams: 02/10/18 21:39 02/10/18 21:39 Laboratory results interpreted by me: 02/10/18 02/10/18 21:39 21:39 WBC 14.0 H RDW 15.8 H Seg Neutrophils % 81.8 H Lymphocytes % 12.7 L Absolute Neutrophils 11.4 H Sodium 134.7 L Chloride 97 L BUN 25 H Creatinine 2.02 H Est GFR ( Amer) 30 L Est GFR (Non-Af Amer) 25 L AST 99 H Alkaline Phosphatase 134 H - Diagnostic Test Radiology reviewed: Image reviewed, Reports reviewed - . X-rays show a lateral patellar fracture left. Right knee x-rays show no fracture. Pelvis show no fractures. Chest x-ray is clear CT shows no bleed Discharge - Discharge Clinical Impression: Patella fracture left, Acute kidney injury, Multiple falls, Ambulatory dysfunction Condition: Stable Disposition: ADMITTED OBSERVATION Admitting Provider: Pacheco Unit Admitted: Medical Floor Additional Instructions: As we discussed, the x-rays showed a small fracture through the patella. Your patella tendon was intact. I do want you to use the immobilizer for comfort. I want you to follow-up with the orthopedic surgeon (Dr. Coleman): Call the office tomorrow for the next available appointment. Also, I want you to follow-up with Dr. Pacheco: Call the office tomorrow. Your labs did suggest she had some dehydration and I want you to drink plenty of fluids. As we discussed, want you to avoid any more heroin use: This will worsen your organs and is not healthy. Return to the emergency room for worsening pain, fever or any concerns or getting worse Prescriptions: Hydromorphone HCl [Dilaudid 2 Mg Tablet] 2 mg PO Q6H PRN #20 tablet PRN Reason: for pain Ondansetron HCl [Zofran 4 mg Tablet] 1 - 2 tab PO Q4H PRN #10 tablet PRN Reason: Referrals: ROBIN DOMÍNGUEZ PA [PHYSICIAN PHYSICIAN PRACTICE COORDINATOR] - Follow up as needed TYRON PACHECO MD [Primary Care Provider] - Follow up in 3-5 days ENRIQUE COLEMAN MD [ACTIVE STAFF] - Follow up as needed (Give the office a call for the pot follow-up in the next 2 weeks per)
[2018-02-10 22:07] LABS: ABSOLUTE BASOPHILS # (AUTO) 0.1 10^3/uL (0.0-0.2); ABSOLUTE EOSINOPHILS # (AUTO) 0.1 10^3/uL (0.0-0.6); ABSOLUTE LYMPHOCYTES (AUTO) 1.8 10^3/uL (0.5-4.7); ABSOLUTE MONOCYTES (AUTO) 0.6 10^3/uL (0.1-1.4); ABSOLUTE NEUT (AUTO) 11.4 10^3/uL (1.7-8.2); BASOPHILS % (AUTO) 0.9 % (0-2); EOSINOPHILS % (AUTO) 0.4 % (0-6); HEMATOCRIT 39.8 % (36.0-47.0); HEMOGLOBIN 13.8 g/dL (12.0-15.5); LYMPHOCYTES % (AUTO) 12.7 % (13-45); MEAN CORPUSCULAR HEMOGLOBIN 31.8 pg (27.0-33.4); MEAN CORPUSCULAR HGB CONC 34.7 g/dL (32.0-36.0); MEAN CORPUSCULAR VOLUME 92 fl (80-97); MONOCYTES % (AUTO) 4.2 % (3-13); PLATELET COUNT 433 10^3/uL (150-450); RED BLOOD COUNT 4.35 10^6/uL (3.72-5.28); RED CELL DISTRIBUTION WIDTH 15.8 % (11.5-14.0); SEGMENTED NEUTROPHILS % (AUTO) 81.8 % (42-78); TOTAL CELLS COUNTED % (AUTO) 100 %
--- NOTE | 2018-02-10 22:26 | RADIOLOGY REPORT (SQ) ---
EXAM DESCRIPTION: CT HEAD WITHOUT IV CONTRAST COMPLETED DATE/TME: 02/10/2018 21:22 CLINICAL HISTORY: 62 years, Female, FALL-HIT HEAD COMPARISON: Prior CT 06/05/2016 TECHNIQUE: 193 Images stored on PACS. All CT scanners at this facility use dose modulation, iterative reconstruction, and/or weight based dosing when appropriate to reduce radiation dose to as low as reasonably achievable (ALARA). [facility]: Dose Right [facility]: CareDose [facility]: Dose Right [facility]: Teradose 4D [facility]: [employer] Interactive LIMITATIONS: None. FINDINGS: The globes are intact. Polyps formation and mucosal thickening of the maxillary sinuses, more pronounced on the right. No displaced or depressed skull fracture. No intra or extra-axial hemorrhage. CT is limited for evaluation of acute infarct. No CT evidence for large or territorial acute infarct. Mild diffuse atrophy. No mass or midline shift. IMPRESSION: Polyps of the maxillary sinuses bilaterally. Mild diffuse atrophy. TECHNICAL DOCUMENTATION: Quality ID # [id number]: Final reports with documentation of one or more dose reduction techniques (e.g., Automated exposure control, adjustment of the mA and/or kV according to patient size, use of iterative reconstruction technique) copyright 2010 [employer]- All Rights Reserved
[2018-02-10 22:37] LABS: ALANINE AMINOTRANSFERASE 21 U/L (9-52); ALBUMIN 3.7 g/dL (3.5-5.0); ALKALINE PHOSPHATASE 134 U/L (38-126); ANION GAP 8 (5-19); ASPARTATE AMINO TRANSFERASE 99 U/L (14-36); BILIRUBIN,DIRECT 0.4 mg/dL (0.0-0.4); BILIRUBIN,TOTAL 0.5 mg/dL (0.2-1.3); BLOOD UREA NITROGEN 25 mg/dL (7-20); CALCIUM 8.6 mg/dL (8.4-10.2); CARBON DIOXIDE 30 mmol/L (22-30); CHLORIDE 97 mmol/L (98-107); GLUCOSE 95 mg/dL (75-110); POTASSIUM 3.7 mmol/L (3.6-5.0); SODIUM 134.7 mmol/L (137-145); TOTAL PROTEIN 6.7 g/dL (6.3-8.2)
--- NOTE | 2018-02-10 22:37 | RADIOLOGY REPORT (SQ) ---
EXAM DESCRIPTION: XR CHEST 1 VIEW COMPLETED DATE/TME: 02/10/2018 21:23 CLINICAL HISTORY: 62 years, Female, COUGH COMPARISON: 02/01/2018 chest x-ray NUMBER OF VIEWS: 1 TECHNIQUE: Frontal view the chest LIMITATIONS: None. FINDINGS: The heart size is normal. Atheromatous change thoracic aorta. Minor scarring in the left perihilar region. Lungs are otherwise clear. No pneumothorax. Osteopenia. IMPRESSION: No acute cardiopulmonary process copyright 2010 [employer]- All Rights Reserved
--- NOTE | 2018-02-10 22:38 | RADIOLOGY REPORT (SQ) ---
EXAM DESCRIPTION: XR PELVIS 1-2 VIEWS COMPLETED DATE/TME: 02/10/2018 21:23 CLINICAL HISTORY: 62 years, Female, BILATERAL HIP PAIN S/P FALL COMPARISON: None. NUMBER OF VIEWS: 1 TECHNIQUE: AP pelvis LIMITATIONS: None. FINDINGS: Left hip arthroplasty. Negative for acute fracture or dislocation. Vascular calcifications. Right hip appears preserved. IMPRESSION: No acute osseous abnormality copyright 2010 [employer]- All Rights Reserved
--- NOTE | 2018-02-10 22:39 | RADIOLOGY REPORT (SQ) ---
EXAM DESCRIPTION: XR KNEE 3 VIEWS COMPLETED DATE/TME: 02/10/2018 21:23 CLINICAL HISTORY: 62 years, Female, FALL-BILATERAL KNEE PAIN Findings: Bony alignment is anatomic. No fracture or dislocation. No significant joint effusion. Mild chondrocalcinosis along the tibiofemoral joints. Mild vascular calcification. IMPRESSION: Mild degenerative changes. No fracture.
--- NOTE | 2018-02-10 22:40 | RADIOLOGY REPORT (SQ) ---
EXAM DESCRIPTION: XR KNEE 3 VIEWS COMPLETED DATE/TME: 02/10/2018 21:23 CLINICAL HISTORY: 62 years, Female, FALL-BILATERAL KNEE PAIN Findings: There appears to be minimally displaced lateral patellar fracture. There is a moderate joint effusion. No dislocation. Mild diffuse vascular calcification. IMPRESSION: Minimally displaced lateral patellar fracture.
[2018-02-11] MEDS ORDERED: ACETAMINOPHEN 325 MG TABLET PO PRN (00:24)
[2018-02-11] MEDS ORDERED: NORMAL SALINE 1000 ML 1,000 ML IV PRN (00:28)
[2018-02-11] MEDS ORDERED: GLUCAGON,HUMAN RECOMB 1 MG INJ IM PRN (00:29)
[2018-02-11] MEDS ORDERED: NORMAL SALINE 1000 ML 1,000 ML IV ONE (00:29)
[2018-02-11] MEDS ORDERED: DEXTROSE 50%-WATER 25 GM/50 ML DISP.SYRIN IV PRN ×2 (00:29)
[2018-02-11] MEDS ORDERED: DEXTROSE 40% GEL 15 GM TUBE PO PRN ×2 (00:29)
[2018-02-11] MEDS ORDERED: INSULIN LISPRO 100 UNIT/ML 3 ML VIAL SUBCUT PRN (00:29)
[2018-02-11] MEDS ORDERED: HYDROMORPHONE HCL INJ/PF 2 MG/ML AMPULE IV ONE (00:46)
[2018-02-11] MEDS ORDERED: CEFTRIAXONE 1 GM/D5W RTU 1 GM/50 ML RTUPB IV ONE (01:00)
[2018-02-11] MEDS: IPRATROPIUM/ALBUTEROL 0.5-2.5 MG/3 ML AMPUL NEB SCH ×4 (02:20→19:45)
[2018-02-11] MEDS ORDERED: IBUPROFEN 600 MG TABLET PO PRN (07:53)
[2018-02-11] MEDS: HYDROMORPHONE HCL 2 MG TABLET PO PRN ×4 (08:36→22:58)
[2018-02-11] MEDS ORDERED: HYDROXYZINE HCL 10 MG TABLET PO PRN (09:27)
[2018-02-11 09:57] LABS: APPEARANCE,URINE CLEAR; BILIRUBIN,URINE NEGATIVE (NEGATIVE); COLOR,URINE YELLOW; GLUCOSE, URINE 50 mg/dL (NEGATIVE); KETONES,URINE TRACE mg/dL (NEGATIVE); LEUKOCYTE ESTERASE,URINE NEGATIVE (NEGATIVE); NITRITE,URINE NEGATIVE (NEGATIVE); PROTEIN,URINE >=500 mg/dL (NEGATIVE); URINE SPECIFIC GRAVITY 1.009; UROBILINOGEN,URINE NEGATIVE mg/dL (<2.0)
[2018-02-11] MEDS ORDERED: (PENDING PHARMACY ID) (Venlafaxine Hcl [Venlafaxine Hcl Er] 225 MG) PO SCH (10:00)
[2018-02-11] MEDS: AMLODIPINE BESYLATE 5 MG TABLET PO SCH (10:09)
[2018-02-11] MEDS: CETIRIZINE 10 MG TABLET PO SCH (10:09)
[2018-02-11] MEDS: CLOPIDOGREL BISULFATE 75 MG TABLET PO SCH (10:09)
[2018-02-11] MEDS: EZETIMIBE 10 MG TABLET PO SCH (10:09)
--- NOTE | 2018-02-11 10:50 | RADIOLOGY REPORT (SQ) ---
EXAM DESCRIPTION: CT ABD/PELVIS NO ORAL OR IV COMPLETED DATE/TIME: 02/11/2018 10:33 am REASON FOR STUDY: renal failure COMPARISON: CT abdomen pelvis 04/06/2017, 01/07/2013 CT chest 05/24/2014, 09/04/2015, 03/30/2016, 04/07/2017 TECHNIQUE: CT scan of the abdomen and pelvis performed without intravenous or oral contrast. Images reviewed with lung, soft tissue, and bone windows. Reconstructed coronal and sagittal MPR images revi ewed. All images stored on PACS. All CT scanners at this facility use dose modulation, iterative reconstruction, and/or weight based d osing when appropriate to reduce radiation dose to as low as reasonably achievable (ALARA). [facility]: Dose Right [facility]: CareDose [facility]: Dose Right [facility]: Teradose 4D [facility]: Smart 7 Cups of Tea RADIATION DOSE: CT Rad equipment meets quality standard of care and radiation dose reduction techniq ues were employed. CTDIvol: 8.2 mGy. DLP: 472 mGy-cm.mGy. LIMITATIONS: None. FINDINGS: LOWER CHEST: Old left mastectomy with left breast implant. Minimal right posterior costop hrenic sulcus pleural calcification in the adjacent basilar scarring. Heavy coronary artery calcific ations. NON-CONTRASTED LIVER, SPLEEN, ADRENALS: Evaluation limited by lack of IV contrast. No identified sign ificant masses. PANCREAS: No masses. No peripancreatic inflammatory changes. GALLBLADDER: Surgically absent with surgical clips and dystrophic calcifications in the gallbladder f kenny RIGHT KIDNEY AND URETER: No suspicious masses. Assessment limited by lack of IV contrast. No signif icant calcifications. No hydronephrosis or hydroureter. LEFT KIDNEY AND URETER: No suspicious masses. Assessment limited by lack of IV contrast. No signifi cant calcifications. No hydronephrosis or hydroureter. AORTA AND RETROPERITONEUM: Heavily calcified abdominal aorta and major branches without abdominal aor tic aneurysm BOWEL AND PERITONEAL CAVITY: No CT evidence of bowel obstruction or free intraperitoneal air or fluid APPENDIX: Surgically absent by history PELVIS, BLADDER, AND ABDOMINAL WALL:No abnormal masses. No free fluid. Bladder normal. Post hysterec ondina BONES: No significant findings. Left total hip replacement OTHER: No other significant finding. IMPRESSION: Post cholecystectomy, hysterectomy and appendectomy No acute findings No hydronephrosis, renal cysts, stones, or masses. COMMENT: Quality ID # [id number]: Final reports with documentation of one or more dose reduction techniques (e.g., Automated exposure control, adjustment of the mA and/or kV according to patient size, use of iterative reconstruction technique) TECHNICAL DOCUMENTATION: JOB ID: [id number] [employer]- All Rights Reserved Reading location - IP/workstation name: [facility]
--- NOTE | 2018-02-11 10:59 | PDOC H&P ---
History of Present Illness Admission Date/PCP: 02/11/18 00:37 TYRON WOODALL MD Patient complains of: Knee pain and frequent fall History of Present Illness: CRISTIANE LOVE is a 62 year old female This is a 62-year-old female very noncompliance history of the type 2 diabetes history of the hypertension history of the hyperlipidemia history of the thyroid cancer status post surgery currently follow with Dr. Wang in [place] history of breast cancer status post surgery and a history of the chronic pain bipolar disorder history of atherosclerotic heart disease and multiple other medical problems complaining of bilateral knee pain and imbalance and patient's frequent fall and patients came to the emergency department where patients found some right patella fracture patient initial CT of the head was negative for any acute finding When I saw the patient patient was asking for the pain medications but other than that patient is denied any chest pain denied any shortness of the breath Patient is denied any headache no blurry vision Patient support resolved fall is coming from the knee and the hip issues Patient already scheduled for the MRI of the back but did not go Patient had a history of the coronary artery stent and recent stress test was done in this year was all stable Patient still continues to smoke Patient have a significant history of COPD sleep apnea and currently see pulmonary as an outpatient Dr. evelin Riggs and also significant history of GI currently seen by the GI [place] have endoscopy and colonoscopy was done recently Patient is pretty much wants to go home today but I do not think so patients can go home by this need further eval patient at this point I agree to stay in the hospital for another 24 hours Past Medical History Cardiac Medical History: Reports: Coronary Artery Disease, Hyperlipidema, Hypertension, Pulmonary Embolism Denies: Myocardial Infarction Pulmonary Medical History: Reports: Asthma, Bronchitis, Chronic Obstructive Pulmonary Disease (COPD), Pneumonia, Sleep Apnea Denies: Tuberculosis Neurological Medical History: Reports: Ischemic CVA Denies: Seizures Endocrine Medical History: Reports: Diabetes Mellitus Type 2, Hypothyroidism Renal/ Medical History: Reports: Chronic Kidney Disease Malignancy Medical History: Reports: Breast Cancer GI Medical History: Reports: Gastroesophageal Reflux Disease Musculoskeltal Medical History: Reports: Arthritis Psychiatric Medical History: Reports: Bipolar Disorder, Depression Hematology: Denies: Anemia Past Surgical History Past Surgical History: Reports: Appendectomy, Cardiac Catheterization - stent x 1, Cholecystectomy, Coronary Stent, Hip Replacement, Mastectomy - left side, pt states many years ago, Thyroidectomy Social History Lives with: Other - Lives with one other person Smoking Status: Current Every Day Smoker Cigarettes Packs Per Day: 2 Cigars Per Day: 18 Frequency of Alcohol Use: Rare Hx Recreational Drug Use: Yes Drugs: Heroin, Marijuana Hx Prescription Drug Abuse: No - Advance Directive Resuscitation Status: Full Code Family History Family History: CAD Parental Family History Reviewed: Yes Children Family History Reviewed: Yes Sibling(s) Family History Reviewed.: Yes Medication/Allergy Home Medications: Albuterol Sulfate [Proair HFA Inhalation Aerosol 8.5 gm MDI] 2 puff IH QID 02/11 Amlodipine Besylate [Norvasc 5 mg Tablet] 5 mg PO DAILY 02/11/18 Aripiprazole [Abilify 30 mg Tablet] 30 mg PO DAILY 02/11/18 Atorvastatin Calcium [Lipitor 10 mg Tablet] 10 mg PO QHS 02/11/18 Cetirizine HCl [Zyrtec 10 mg Tablet] 10 mg PO DAILY 02/11/18 Clonidine HCl [Catapres 0.1 mg Tablet] 0.1 mg PO QHS 02/11/18 Clopidogrel Bisulfate [Plavix 75 mg Tablet] 75 mg PO DAILY 02/11/18 Ezetimibe [Zetia 10 mg Tablet] 10 mg PO DAILY 02/11/18 Fenofibrate 160 mg PO DAILY 02/11/18 Fluticasone/Salmeterol [Advair 250-50 Diskus 14 Dose/Diskus] 1 puff IH Q12 02/11 Hydroxyzine HCl [Atarax 10 mg Tablet] 10 mg PO BIDP PRN 02/11/18 Levothyroxine Sodium [Synthroid] 175 mcg PO Q6AM 02/11/18 Lisinopril [Zestril] 10 mg PO QHS 02/11/18 Metoprolol Tartrate [Lopressor 25 mg Tablet] 25 mg PO Q12 02/11/18 Mirtazapine [Remeron] 30 mg PO QHS 02/11/18 Montelukast Sodium [Singulair 10 mg Tablet] 10 mg PO DAILY 02/11/18 Venlafaxine HCl [Venlafaxine HCl ER] 225 mg PO DAILY 02/11/18 Allergies/Adverse Reactions: codeine Allergy (Verified 03/03/17 06:28) Itching latex Allergy (Verified 03/03/17 06:28) Hives liothyronine [From Cytomel] Allergy (Verified 04/06/17 15:32) Shortness of Breath morphine [Morphine] Allergy (Verified 03/03/17 06:28) Itching nalbuphine [From Nubain] Allergy (Verified 03/03/17 06:28) Itching hydrocodone Adverse Reaction (Mild, Verified 04/06/17 15:31) Rash plastic tape Allergy (Uncoded 03/03/17 06:28) Itching Review of Systems Constitutional: PRESENT: fatigue, weakness. ABSENT: chills, fever(s), headache( s), weight gain, weight loss Eyes: ABSENT: visual disturbances Ears: ABSENT: hearing changes Cardiovascular: ABSENT: chest pain, dyspnea on exertion, edema, orthropnea, palpitations Respiratory: PRESENT: cough. ABSENT: hemoptysis Gastrointestinal: ABSENT: abdominal pain, constipation, diarrhea, hematemesis, hematochezia, nausea, vomiting Genitourinary: ABSENT: dysuria, hematuria Musculoskeletal: ABSENT: joint swelling Integumentary: ABSENT: rash, wounds Neurological: ABSENT: abnormal gait, abnormal speech, confusion, dizziness, focal weakness, syncope Psychiatric: ABSENT: anxiety, depression, homidical ideation, suicidal ideation Endocrine: ABSENT: cold intolerance, heat intolerance, menstrual abnormalities, polydipsia, polyuria Hematologic/Lymphatic: ABSENT: easy bleeding, easy bruising, lymphadenopathy Physical Exam Vital Signs: Temp Pulse Resp BP Pulse Ox 97.4 F 77 20 182/92 H 95 02/11/18 08:58 02/11/18 08:58 02/11/18 08:58 02/11/18 08:58 02/11/18 08:58 Intake & Output 02/10/18 02/11/18 02/12/18 06:59 06:59 06:59 Intake Total 50 Balance 50 Weight 73.6 kg General appearance: PRESENT: no acute distress, well-developed, well-nourished Head exam: PRESENT: atraumatic, normocephalic Eye exam: PRESENT: conjunctiva pink, EOMI, PERRLA. ABSENT: scleral icterus Ear exam: PRESENT: normal external ear exam Mouth exam: PRESENT: moist, tongue midline Neck exam: PRESENT: full ROM. ABSENT: carotid bruit, JVD, lymphadenopathy, thyromegaly Respiratory exam: PRESENT: clear to auscultation nuvia Cardiovascular exam: PRESENT: RRR. ABSENT: diastolic murmur, rubs, systolic murmur Pulses: PRESENT: normal dorsalis pedis pul, +2 pedal pulses bilateral Vascular exam: PRESENT: normal capillary refill GI/Abdominal exam: PRESENT: normal bowel sounds, soft. ABSENT: distended, guarding, mass, organolmegaly, rebound, tenderness Rectal exam: PRESENT: deferred Extremities exam: ABSENT: pedal edema Additional comments: Right knee splint is present Musculoskeletal exam: PRESENT: ambulatory Neurological exam: PRESENT: alert, awake, oriented to person, oriented to place , oriented to time, oriented to situation, CN II-XII grossly intact. ABSENT: motor sensory deficit Psychiatric exam: PRESENT: appropriate affect, normal mood. ABSENT: homicidal ideation, suicidal ideation Skin exam: PRESENT: dry, intact, warm. ABSENT: cyanosis, rash Results Laboratory Results: 02/11/18 08:00 Urine Color YELLOW Urine Appearance CLEAR Urine pH 7.0 Ur Specific [place] 1.009 Urine Protein >=500 H Urine Glucose (UA) 50 H Urine Ketones TRACE H Urine Blood SMALL H Urine Nitrite NEGATIVE Ur Leukocyte Esterase NEGATIVE Urine WBC (Auto) 1 Urine RBC (Auto) 1 Impressions: Head CT 02/10/18 21:22 IMPRESSION: Polyps of the maxillary sinuses bilaterally. Mild diffuse atrophy. TECHNICAL DOCUMENTATION: Quality ID # 436: Final reports with documentation of one or more dose reduction techniques (e.g., Automated exposure control, adjustment of the mA and/or kV according to patient size, use of iterative reconstruction technique) copyright 2011 [employer]- All Rights Reserved Chest X-Ray 02/10/18 21:23 IMPRESSION: No acute cardiopulmonary process copyright 2010 [employer]- All Rights Reserved Knee X-Ray 02/10/18 21:23 IMPRESSION: Minimally displaced lateral patellar fracture. Pelvis X-Ray 02/10/18 21:23 IMPRESSION: No acute osseous abnormality copyright 2010 [employer]- All Rights Reserved Assessment & Plan - Diagnosis (1) Right patella fracture Qualifiers: Encounter type: initial encounter Is this a current diagnosis for this admission?: Yes Plan: Consult the orthopedic surgery and physical therapy evaluations (2) Frequent falls Is this a current diagnosis for this admission?: Yes Plan: Unlikely to be any neurological most likely a orthopedic issues will get the MRI of the brain to rule out the possibility also get the MRI of the LS spine to rule out spinal stenosis Outpatients will get the urine drug screen Also discussed with the patient some of the psych medication and patient using the recreational drug also causing the frequent fall patients do not want to believe it she wants most likely related to the knee issues (3) Thyroid cancer Is this a current diagnosis for this admission?: Yes Plan: Is currently seeing Dr. 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 Mabry baseline creatinine is 1.5 we will give some IV fluid rule out any urinary tract infections (7) CAD (coronary artery disease) Qualifiers: Coronary Disease-Associated Artery/Lesion type: [place] artery [place] vs. transplanted heart: [place] heart Associated angina: angina presence unspecified Qualified Code(s): I25.10 - Atherosclerotic heart disease of [place] coronary artery without angina pectoris Is this a current diagnosis for this admission?: Yes Plan: Currently denied any symptoms we will get the EKG (8) COPD (chronic obstructive pulmonary disease) Qualifiers: COPD type: unspecified COPD Qualified Code(s): J44.9 - Chronic obstructive pulmonary disease, unspecified Is this a current diagnosis for this admission?: Yes Plan: Nebulizer treatment (9) CVA (cerebral vascular accident) Qualifiers: CVA mechanism: unspecified Qualified Code(s): I63.9 - Cerebral infarction, unspecified Is this a current diagnosis for this admission?: Yes (10) Cigarette smoker Is this a current diagnosis for this admission?: Yes Plan: With the patient about smoking counseling (11) HLD (hyperlipidemia) Qualifiers: Hyperlipidemia type: pure hypercholesterolemia Qualified Code(s): E78.00 - Pure hypercholesterolemia, unspecified Is this a current diagnosis for this admission?: Yes Plan: Current medications (12) HTN (hypertension) Qualifiers: Hypertension type: essential hypertension Qualified Code(s): I10 - Essential (primary) hypertension Is this a current diagnosis for this admission?: Yes Plan: Currently all stable (13) Hypothyroidism Qualifiers: Hypothyroidism type: unspecified Qualified Code(s): E03.9 - Hypothyroidism , unspecified Is this a current diagnosis for this admission?: Yes Plan: We will check a TSH and free T4 patient is currently seeing Dr. Wang (14) Sleep apnea Qualifiers: Sleep apnea type: unspecified type Qualified Code(s): G47.30 - Sleep apnea , unspecified Is this a current diagnosis for this admission?: Yes Plan: The CPAP machine (15) Bipolar disorder Qualifiers: Active/Remission status: currently active Is this a current diagnosis for this admission?: Yes Plan: Is currently see a psychiatrist - Time Time Spent: 50 to 70 Minutes Medications reviewed and adjusted accordingly: Yes Anticipated discharge: Home Within: Other - Inpatient Certification Based on my medical assessment, after consideration of the patient's comorbidities, presenting symptoms, or acuity I expect that the services needed warrant INPATIENT care.: Yes I certify that my determination is in accordance with my understanding of Medicare's requirements for reasonable and necessary INPATIENT services [42 CFR 412.3e].: Yes Medical Necessity: Significant Comorbidiites Make Outpatient Treatment Too Risky , Need For IV Fluids, Need for IV Antibiotics Post Hospital Care: D/C Under Sheriff Documentation - Plan Summary Plan Summary: See other MD orders Very extensive discussions with the patient is to be stay in the hospital We will give her as needed pain medications We will get the urine culture blood culture We will get the MRI of the brain and LS spine Physical therapy evaluations Orthopedic evaluations
[2018-02-11] MEDS ORDERED: ONDANSETRON HCL INJ/PF 4 MG/2 ML SDV ONE (11:02)
[2018-02-11] MEDS: VENLAFAXINE HCL 75 MG CAP.SR.24H PO SCH (11:30)
[2018-02-11] MEDS: FLUTICASONE/SALMETEROL DISKUS 250-50 MCG/DOSE IH SCH ×2 (11:30→22:57)
[2018-02-11] MEDS: ARIPIPRAZOLE 5 MG TABLET PO SCH (11:30)
[2018-02-11 11:45] LABS: URINE AMPHETAMINES SCREEN NEGATIVE; URINE BARBITURATES SCREEN NEGATIVE; URINE BENZODIAZEPINES SCREEN NEGATIVE; URINE COCAINE SCREEN NEGATIVE; URINE MARIJUANA (THC) SCREEN NEGATIVE; URINE METHADONE SCREEN NEGATIVE; URINE PHENCYCLIDINE SCREEN NEGATIVE
[2018-02-11] MEDS: DOCUSATE SODIUM 100 MG CAPSULE PO SCH ×2 (12:22→16:59)
[2018-02-11] MEDS: MONTELUKAST SODIUM 10 MG TABLET PO SCH (12:23)
[2018-02-11] MEDS: ENOXAPARIN SODIUM INJ 30 MG/0.3 ML DISP.SYRIN SUBCUT SCH (12:23)
--- NOTE | 2018-02-11 12:34 | RADIOLOGY REPORT (SQ) ---
EXAM DESCRIPTION: MRI LUMBAR SPINE WITHOUT COMPLETED DATE/TIME: 02/11/2018 12:01 pm REASON FOR STUDY: frequnt fall/back pain COMPARISON: CT abdomen pelvis 02/11/2018, 04/06/2017 TECHNIQUE: Sagittal and Axial imaging includes T1, T2, STIR and gradient echo sequences. Coronal T2/ HASTE imaging. LIMITATIONS: None. FINDINGS: VISUALIZED UPPER ABDOMEN: Limited evaluation. No acute or suspicious findings suggested. SEGMENTATION: No transitional anatomy. The lowest well-developed disc space is labeled L5-S1. ALIGNMENT: Mild convex leftward lumbar curvature VERTEBRAE: Intact. BONE MARROW: Normal. No marrow replacement or reactive changes. DISC SIGNAL: Decreased T2 weighted intervertebral disc signal at L3-4, L4-5, and L5-S1 POSTERIOR ELEMENTS: Generally intact. No pars defect evident. HARDWARE: None in the spine. CORD AND CONUS: Normal in size and signal intensity. Conus at the L1 level. SOFT TISSUES: No aortic aneurysm seen. No bulky retroperitoneal adenopathy or mass. No paraspinal mas s or fluid. T11-12: Unremarkable T12-L1: Unremarkable L1-L2: No posterior disc bulging. Mild bilateral facet hypertrophy. No significant central or bud inal encroachment. L2-3: No posterior disc bulging. Mild bilateral facet hypertrophy. No significant central or forami nal encroachment. L3-4: Mild diffuse posterior disc bulging and mild facet and ligament hypertrophy without significant central or foraminal encroachment L4-5: Mild diffuse posterior disc bulging, moderate bilateral facet and ligament hypertrophy. Border line central canal narrowing and mild bilateral inferior foraminal stenosis without exit nerve root i mpingement. Small central annular tear at the L4-5 level best shown on sagittal image 9 L5-S1: Mild posterior disc bulging, moderate bilateral facet and ligament hypertrophy. No significan t central or foraminal encroachment SACRUM: Visualized upper sacrum intact. OTHER: Markedly distended urinary bladder at the bottom edge of the field of view IMPRESSION: No fracture or malalignment. Mild degenerative disc changes and facet arthropathy in th e lower lumbar spine as above. TECHNICAL DOCUMENTATION: JOB ID: [id number] [employer]- All Rights Reserved Reading location - IP/workstation name: [facility]
--- NOTE | 2018-02-11 13:03 | RADIOLOGY REPORT (SQ) ---
EXAM DESCRIPTION: MRI HEAD WITHOUT COMPLETED DATE/TIME: 02/11/2018 12:01 pm REASON FOR STUDY: frequnt fall COMPARISON: MRI and MRA brain 08/28/2016 MRI brain 04/13/2016, 06/14/2015 TECHNIQUE: Multiplanar imaging includes non-contrasted T1, T2, FLAIR, and diffusion with ADC map seq uences. Images stored on PACS. LIMITATIONS: Mild motion artifact FINDINGS: ANATOMY: No anomalies. Normal vascular flow voids. Pituitary fossa normal. CSF SPACES: Normal in size and contour. No hemorrhage. CEREBRUM: Sulci and gyri normal in size and contour. Normal white matter signal on FLAIR imaging. No evidence of hemorrhage, mass, or extraaxial fluid collection. POSTERIOR FOSSA: No signal alteration. No hemorrhage. No edema, masses or mass effect. Internal kiera tory canals, cerebello-pontine angles, mastoids normal. DIFFUSION IMAGING: Negative for acute or sub-acute infarction. ORBITS: No masses. Globes normal. PARANASAL SINUSES: Mucus or serous retention cyst right maxillary sinus OTHER: No other significant finding. IMPRESSION: MILD MOTION ARTIFACT. OTHERWISE, MRI OF THE BRAIN WITHOUT INTRAVENOUS GADOLINIUM CONTRA ST. EVIDENCE OF ACUTE STROKE: NO. TECHNICAL DOCUMENTATION: JOB ID: [id number] [employer]- All Rights Reserved Reading location - IP/workstation name: [facility]
[2018-02-11] MEDS: LANSOPRAZOLE 15 MG TAB.RAP.DR PO SCH (16:58)
--- NOTE | 2018-02-11 17:17 | PDOC CONSULTATION ---
Consultation Consult Date: 02/11/18 Consult reason:: Right patella fracture History of Present Illness Admission Date/PCP: 02/11/18 00:37 TYRON WOODALL MD History of Present Illness: CRISTIANE LOVE is a 62 year old female The patient is a 62-year-old white female with multiple medical and psychiatric issues who was recently admitted for medical issues. Pre-seeding her admission was a fall onto her right knee. She is complaining bitterly of right knee pain. Radiographs are obtained and interpreted as a patella fracture. Orthopedics is consulted for fracture management. Past Medical History Cardiac Medical History: Reports: Coronary Artery Disease, Hyperlipidema, Hypertension, Pulmonary Embolism Denies: Myocardial Infarction Pulmonary Medical History: Reports: Asthma, Bronchitis, Chronic Obstructive Pulmonary Disease (COPD), Pneumonia, Sleep Apnea Denies: Tuberculosis Neurological Medical History: Reports: Ischemic CVA Denies: Seizures Endocrine Medical History: Reports: Diabetes Mellitus Type 2, Hypothyroidism Renal/ Medical History: Reports: Chronic Kidney Disease Malignancy Medical History: Reports: Breast Cancer GI Medical History: Reports: Gastroesophageal Reflux Disease Musculoskeltal Medical History: Reports: Arthritis Psychiatric Medical History: Reports: Bipolar Disorder, Depression Hematology: Denies: Anemia Past Surgical History Past Surgical History: Reports: Appendectomy, Cardiac Catheterization - stent x 1, Cholecystectomy, Coronary Stent, Hip Replacement, Mastectomy - left side, pt states many years ago, Thyroidectomy Social History Information Source: Patient, [facility] Records Lives with: Other - Lives with one other person Smoking Status: Current Every Day Smoker Cigarettes Packs Per Day: 2 Cigars Per Day: 18 Frequency of Alcohol Use: Rare Hx Recreational Drug Use: Yes Drugs: Heroin, Marijuana Hx Prescription Drug Abuse: No - Advance Directive Resuscitation Status: Full Code Family History Family History: CAD Parental Family History Reviewed: No Children Family History Reviewed: No Sibling(s) Family History Reviewed.: No Medication/Allergy Home Medications: Albuterol Sulfate [Proair HFA Inhalation Aerosol 8.5 gm MDI] 2 puff IH QID 02/11 Amlodipine Besylate [Norvasc 5 mg Tablet] 5 mg PO DAILY 02/11/18 Aripiprazole [Abilify 30 mg Tablet] 30 mg PO DAILY 02/11/18 Atorvastatin Calcium [Lipitor 10 mg Tablet] 10 mg PO QHS 02/11/18 Cetirizine HCl [Zyrtec 10 mg Tablet] 10 mg PO DAILY 02/11/18 Clonidine HCl [Catapres 0.1 mg Tablet] 0.1 mg PO QHS 02/11/18 Clopidogrel Bisulfate [Plavix 75 mg Tablet] 75 mg PO DAILY 02/11/18 Ezetimibe [Zetia 10 mg Tablet] 10 mg PO DAILY 02/11/18 Fenofibrate 160 mg PO DAILY 02/11/18 Fluticasone/Salmeterol [Advair 250-50 Diskus 14 Dose/Diskus] 1 puff IH Q12 02/11 Hydroxyzine HCl [Atarax 10 mg Tablet] 10 mg PO BIDP PRN 02/11/18 Levothyroxine Sodium [Synthroid] 175 mcg PO Q6AM 02/11/18 Lisinopril [Zestril] 10 mg PO QHS 02/11/18 Metoprolol Tartrate [Lopressor 25 mg Tablet] 25 mg PO Q12 02/11/18 Mirtazapine [Remeron] 30 mg PO QHS 02/11/18 Montelukast Sodium [Singulair 10 mg Tablet] 10 mg PO DAILY 02/11/18 Venlafaxine HCl [Venlafaxine HCl ER] 225 mg PO DAILY 02/11/18 Allergies/Adverse Reactions: codeine Allergy (Verified 03/03/17 06:28) Itching latex Allergy (Verified 03/03/17 06:28) Hives liothyronine [From Cytomel] Allergy (Verified 04/06/17 15:32) Shortness of Breath morphine [Morphine] Allergy (Verified 03/03/17 06:28) Itching nalbuphine [From Nubain] Allergy (Verified 03/03/17 06:28) Itching hydrocodone Adverse Reaction (Mild, Verified 04/06/17 15:31) Rash plastic tape Allergy (Uncoded 03/03/17 06:28) Itching Review of Systems ROS unobtainable: Due to mental status All systems: as per PMH Physical Exam Vital Signs: Temp Pulse Resp BP Pulse Ox 36.6 C 93 19 152/82 H 91 L 02/11/18 15:53 02/11/18 15:53 02/11/18 15:53 02/11/18 15:53 02/11/18 15:53 Intake & Output 02/10/18 02/11/18 02/12/18 06:59 06:59 06:59 Intake Total 50 473 Output Total 1200 Balance 50 -727 Weight 73.6 kg Physical Exam: Patient said disheveled appearing middle-aged white female lying in a hospital bed. Right lower extremity is immobilized in a knee immobilizer. The patient answers questions but not directly. General appearance: PRESENT: mild distress Head exam: PRESENT: normocephalic Respiratory exam: PRESENT: unlabored Cardiovascular exam: PRESENT: RRR Pulses: PRESENT: +1 pedal pulses bilateral Vascular exam: PRESENT: normal capillary refill GI/Abdominal exam: PRESENT: soft Rectal exam: PRESENT: deferred Extremities exam: PRESENT: other - Knee immobilizer is removed. There is no swelling about the patella. There is no effusion. There is a full passive range of motion. There is some complaints of tenderness to palpation. There is adequate patella mobility. There is no skin abnormalities. Distal neurovascular examination is intact. Skin exam: PRESENT: dry, intact, warm. ABSENT: cyanosis, rash Results Laboratory Results: 02/11/18 08:00 Urine Color YELLOW Urine Appearance CLEAR Urine pH 7.0 Ur Specific [place] 1.009 Urine Protein >=500 H Urine Glucose (UA) 50 H Urine Ketones TRACE H Urine Blood SMALL H Urine Nitrite NEGATIVE Ur Leukocyte Esterase NEGATIVE Urine WBC (Auto) 1 Urine RBC (Auto) 1 Impressions: Head CT 02/10/18 21:22 IMPRESSION: Polyps of the maxillary sinuses bilaterally. Mild diffuse atrophy. TECHNICAL DOCUMENTATION: Quality ID # 436: Final reports with documentation of one or more dose reduction techniques (e.g., Automated exposure control, adjustment of the mA and/or kV according to patient size, use of iterative reconstruction technique) copyright 2010 [employer]- All Rights Reserved Chest X-Ray 02/10/18 21:23 IMPRESSION: No acute cardiopulmonary process copyright 2010 [employer]- All Rights Reserved Knee X-Ray 02/10/18 21:23 IMPRESSION: Minimally displaced lateral patellar fracture. Pelvis X-Ray 02/10/18 21:23 IMPRESSION: No acute osseous abnormality copyright 2010 [employer]- All Rights Reserved Abdomen/Pelvis CT 02/11/18 00:00 IMPRESSION: Post cholecystectomy, hysterectomy and appendectomy No acute findings No hydronephrosis, renal cysts, stones, or masses. Head MRI 02/11/18 00:00 IMPRESSION: MILD MOTION ARTIFACT. OTHERWISE, MRI OF THE BRAIN WITHOUT INTRAVENOUS GADOLINIUM CONTRAST. EVIDENCE OF ACUTE STROKE: NO. Lumbar Spine MRI 02/11/18 00:00 IMPRESSION: No fracture or malalignment. Mild degenerative disc changes and facet arthropathy in the lower lumbar spine as above. Status: Imported from PACS Assessment & Plan - Diagnosis (1) Bipartite patella Is this a current diagnosis for this admission?: Yes Plan: Patient is a 62-year-old white female status post a fall. X-rays have been interpreted as a patellar fracture which I think is actually bipartite patella and this preceded the patient's fall. At this point the patient can be mobilized with physical therapy and weightbearing as tolerated basis. Knee immobilizer can be used as needed. - Time Time Spent: 30 to 50 Minutes Anticipated discharge: Other Within: Other - Plan Summary Plan Summary: Mobilized with physical therapy and weightbearing as tolerated basis. Follow- up as needed.
[2018-02-11] MEDS: ONDANSETRON HCL INJ/PF 4 MG/2 ML SDV IV PRN (20:16)
[2018-02-11] MEDS ORDERED: CEFTRIAXONE 1 GM/D5W RTU 1 GM/50 ML RTUPB IV SCH (22:00)
[2018-02-11] MEDS ORDERED: CEFTRIAXONE SODIUM 1,000 MG in DEXTROSE 5%-WATER 50 ML IV SCH (22:00)
[2018-02-11] MEDS ORDERED: ATORVASTATIN CALCIUM 10 MG TABLET PO SCH (22:00)
[2018-02-11] MEDS ORDERED: MIRTAZAPINE 15 MG TABLET PO SCH (22:00)
[2018-02-12] MEDS: IPRATROPIUM/ALBUTEROL 0.5-2.5 MG/3 ML AMPUL NEB SCH ×3 (02:39→13:43)
[2018-02-12 05:26] LABS: ABSOLUTE BASOPHILS # (AUTO) 0.1 10^3/uL (0.0-0.2); ABSOLUTE LYMPHOCYTES (AUTO) 1.2 10^3/uL (0.5-4.7); ABSOLUTE MONOCYTES (AUTO) 0.3 10^3/uL (0.1-1.4); ABSOLUTE NEUT (AUTO) 12.5 10^3/uL (1.7-8.2); BASOPHILS % (AUTO) 0.6 % (0-2); EOSINOPHILS % (AUTO) 0.1 % (0-6); HEMATOCRIT 42.8 % (36.0-47.0); HEMOGLOBIN 14.8 g/dL (12.0-15.5); LYMPHOCYTES % (AUTO) 8.7 % (13-45); MEAN CORPUSCULAR HEMOGLOBIN 31.9 pg (27.0-33.4); MEAN CORPUSCULAR HGB CONC 34.7 g/dL (32.0-36.0); MEAN CORPUSCULAR VOLUME 92 fl (80-97); MONOCYTES % (AUTO) 2.2 % (3-13); PLATELET COUNT 520 10^3/uL (150-450); RED BLOOD COUNT 4.65 10^6/uL (3.72-5.28); RED CELL DISTRIBUTION WIDTH 15.2 % (11.5-14.0); SEGMENTED NEUTROPHILS % (AUTO) 88.4 % (42-78); TOTAL CELLS COUNTED % (AUTO) 100 %; WHITE BLOOD COUNT 14.1 10^3/uL (4.0-10.5)
[2018-02-12] MEDS: LANSOPRAZOLE 15 MG TAB.RAP.DR PO SCH ×2 (05:31→16:29)
[2018-02-12] MEDS: HYDROMORPHONE HCL 2 MG TABLET PO PRN ×2 (05:32→11:11)
[2018-02-12 05:49] LABS: ALANINE AMINOTRANSFERASE 27 U/L (9-52); ALKALINE PHOSPHATASE 150 U/L (38-126); ANION GAP 14 (5-19); ASPARTATE AMINO TRANSFERASE 59 U/L (14-36); BILIRUBIN,DIRECT 0.5 mg/dL (0.0-0.4); BILIRUBIN,TOTAL 0.5 mg/dL (0.2-1.3); BLOOD UREA NITROGEN 20 mg/dL (7-20); CALCIUM 9.4 mg/dL (8.4-10.2); CARBON DIOXIDE 27 mmol/L (22-30); CHLORIDE 95 mmol/L (98-107); GLUCOSE 126 mg/dL (75-110); POTASSIUM 4.6 mmol/L (3.6-5.0); SODIUM 135.8 mmol/L (137-145)
[2018-02-12] MEDS ORDERED: LEVOTHYROXINE SODIUM 0.075 MG TABLET PO SCH (06:00)
[2018-02-12] MEDS ORDERED: (PENDING PHARMACY ID) (Levothyroxine Sodium [Synthroid] 175 MCG) PO SCH (06:00)
[2018-02-12] MEDS ORDERED: LEVOTHYROXINE SODIUM 0.1 MG TABLET PO SCH (06:00)
[2018-02-12] MEDS: ONDANSETRON HCL INJ/PF 4 MG/2 ML SDV IV PRN ×2 (06:46→11:11)
--- NOTE | 2018-02-12 07:49 | EKG REPORT ---
SEVERITY:- ABNORMAL ECG - SINUS TACHYCARDIA PAIRED VENTRICULAR PREMATURE COMPLEXES LEFT ATRIAL ABNORMALITY : Confirmed by: Laura Edwards MD 12-Feb-2018 07:48:36
[2018-02-12] MEDS: AMLODIPINE BESYLATE 5 MG TABLET PO SCH (08:42)
[2018-02-12] MEDS: DOCUSATE SODIUM 100 MG CAPSULE PO SCH ×2 (09:57→17:24)
[2018-02-12] MEDS: CLOPIDOGREL BISULFATE 75 MG TABLET PO SCH (09:57)
[2018-02-12] MEDS: FLUTICASONE/SALMETEROL DISKUS 250-50 MCG/DOSE IH SCH (09:57)
[2018-02-12] MEDS: VENLAFAXINE HCL 75 MG CAP.SR.24H PO SCH (09:57)
[2018-02-12] MEDS: MONTELUKAST SODIUM 10 MG TABLET PO SCH (09:57)
[2018-02-12] MEDS: CETIRIZINE 10 MG TABLET PO SCH (09:57)
[2018-02-12] MEDS: EZETIMIBE 10 MG TABLET PO SCH (09:57)
[2018-02-12] MEDS: ARIPIPRAZOLE 5 MG TABLET PO SCH (09:58)
[2018-02-12] MEDS: ENOXAPARIN SODIUM INJ 30 MG/0.3 ML DISP.SYRIN SUBCUT SCH (09:59)
--- NOTE | 2018-02-12 12:55 | PDOC PROGRESS REPORT ---
Subjective Progress Note for:: 02/12/18 Subjective:: Patient reported continue pain in her right knee with left knee joint swelling and difficulty with standing and walking. Compliant with immobilizer usage and walker assistance. Reason For Visit: KNEE FX Physical Exam Vital Signs: Temp Pulse Resp BP Pulse Ox 98.4 F 100 24 H 181/95 H 100 02/12/18 07:54 02/12/18 07:54 02/12/18 07:54 02/12/18 07:54 02/12/18 07:54 Intake & Output 02/11/18 02/12/18 02/13/18 06:59 06:59 06:59 Intake Total 50 473 50 Output Total 1200 Balance 50 -727 50 Weight 73.6 kg 70.2 kg General appearance: PRESENT: mild distress - due to painin left knee joint Head exam: PRESENT: atraumatic, normocephalic Eye exam: PRESENT: conjunctiva pink, EOMI, PERRLA. ABSENT: scleral icterus Ear exam: PRESENT: normal external ear exam Mouth exam: PRESENT: moist Respiratory exam: PRESENT: clear to auscultation nuvia Cardiovascular exam: PRESENT: RRR. ABSENT: diastolic murmur, rubs, systolic murmur Vascular exam: PRESENT: normal capillary refill. ABSENT: pallor GI/Abdominal exam: PRESENT: normal bowel sounds, soft. ABSENT: distended, guarding, mass, organolmegaly, rebound, tenderness Extremities exam: PRESENT: joint swelling - left knee joint, tenderness - bilateral knee with left knee joint swelling Musculoskeletal exam: PRESENT: ambulatory - with walker assistance, tenderness - bilateral knee with left knee joint swelling Neurological exam: PRESENT: alert Psychiatric exam: PRESENT: appropriate affect, normal mood. ABSENT: homicidal ideation, suicidal ideation Skin exam: PRESENT: dry, intact, warm. ABSENT: cyanosis, rash Results Laboratory Results: 02/12/18 04:01 02/12/18 04:01 02/12/18 02/12/18 04:01 04:01 WBC 14.1 H RBC 4.65 Hgb 14.8 Hct 42.8 MCV 92 MCH 31.9 MCHC 34.7 RDW 15.2 H Plt Count 520 H Seg Neutrophils % 88.4 H Lymphocytes % 8.7 L Monocytes % 2.2 L Eosinophils % 0.1 Basophils % 0.6 Absolute Neutrophils 12.5 H Absolute Lymphocytes 1.2 Absolute Monocytes 0.3 Absolute Eosinophils 0.0 Absolute Basophils 0.1 Sodium 135.8 L Potassium 4.6 Chloride 95 L Carbon Dioxide 27 Anion Gap 14 BUN 20 Creatinine 1.67 H Est GFR ( Amer) 38 L Est GFR (Non-Af Amer) 31 L Glucose 126 H Calcium 9.4 Total Bilirubin 0.5 AST 59 H ALT 27 Alkaline Phosphatase 150 H Total Protein 7.0 Albumin 4.0 Impressions: Head CT 02/10/18 21:22 IMPRESSION: Polyps of the maxillary sinuses bilaterally. Mild diffuse atrophy. TECHNICAL DOCUMENTATION: Quality ID # 436: Final reports with documentation of one or more dose reduction techniques (e.g., Automated exposure control, adjustment of the mA and/or kV according to patient size, use of iterative reconstruction technique) copyright 2010 [employer]- All Rights Reserved Chest X-Ray 02/10/18 21:23 IMPRESSION: No acute cardiopulmonary process copyright 2010 [employer]- All Rights Reserved Knee X-Ray 02/10/18 21:23 IMPRESSION: Minimally displaced lateral patellar fracture. Pelvis X-Ray 02/10/18 21:23 IMPRESSION: No acute osseous abnormality copyright 2010 [employer]- All Rights Reserved Abdomen/Pelvis CT 02/11/18 00:00 IMPRESSION: Post cholecystectomy, hysterectomy and appendectomy No acute findings No hydronephrosis, renal cysts, stones, or masses. Head MRI 02/11/18 00:00 IMPRESSION: MILD MOTION ARTIFACT. OTHERWISE, MRI OF THE BRAIN WITHOUT INTRAVENOUS GADOLINIUM CONTRAST. EVIDENCE OF ACUTE STROKE: NO. Lumbar Spine MRI 02/11/18 00:00 IMPRESSION: No fracture or malalignment. Mild degenerative disc changes and facet arthropathy in the lower lumbar spine as above. Assessment & Plan - Diagnosis (1) Right patella fracture Qualifiers: Encounter type: initial encounter Is this a current diagnosis for this admission?: Yes Plan: Continue immobilizer usage and physical therapy for rehabilitation. Maintain on current pain management regimen. (2) Effusion of left knee Is this a current diagnosis for this admission?: Yes Plan: Continue current supportive management. (3) Frequent falls Is this a current diagnosis for this admission?: Yes Plan: Continue physical therapy management and emphasized use of walker assistance for walking. (4) Type 2 diabetes mellitus Qualifiers: Diabetes mellitus correction insulin use: without termite control technician use Is this a current diagnosis for this admission?: Yes Plan: Continue current medication management. (5) HTN (hypertension) Qualifiers: Hypertension type: essential hypertension Qualified Code(s): I10 - Essential (primary) hypertension Is this a current diagnosis for this admission?: Yes Plan: Increase Norvasc to 5 mg po q12 hours. Elevated blood pressure may be due to her ongoing knee pain. - Time Time Spent with patient: 25-34 minutes Medications reviewed and adjusted accordingly: Yes Anticipated discharge: Home with Homehealth - Inpatient Certification Based on my medical assessment, after consideration of the patient's comorbidities, presenting symptoms, or acuity I expect that the services needed warrant INPATIENT care.: Yes I certify that my determination is in accordance with my understanding of Medicare's requirements for reasonable and necessary INPATIENT services [42 CFR 412.3e].: Yes Medical Necessity: Need Close Monitoring Due to Risk of Patient Decompensation, Need For Continuous Telemetry Monitoring, Need for Pain Control, Risk of Complication if Not Cared For in Hospital Post Hospital Care: D/C Trial Manager Documentation - Plan Summary Plan Summary: See covering attending physician orders as per outlined care plan.
[2018-02-12 17:33] VITALS: BP 155/83
[2018-02-12] MEDS ORDERED: METOPROLOL TARTRATE 25 MG TABLET PO SCH (22:00)
[2018-02-12] MEDS ORDERED: AMLODIPINE BESYLATE 5 MG TABLET PO SCH (22:00)
[2018-02-12] MEDS ORDERED: LISINOPRIL 10 MG TABLET PO SCH (22:00)
[2018-02-13] MEDS ORDERED: AMLODIPINE BESYLATE 5 MG TABLET PO SCH (10:00)
== END 2018-02-12 20:55 | disposition left against medical advice (07) | DRG 563 ==
LOC: ER 19:10 → EH 02-11 00:36 → OBSVTOIN 02-11 00:37 → 5 02-11 04:12
PROVIDERS: ADMIT Family Medicine; ATTEND Family Medicine
PROC: 3E0F73Z Introduction of Anti-inflammatory into Respiratory Tract, Via Natural or Artificial Opening (ICD-10-PCS; principal; 2018-02-11)
DX: S82.001A Unspecified fracture of right patella, initial encounter for closed fracture (principal); N17.9 Acute kidney failure, unspecified; W00.0XXA Fall on same level due to ice and snow, initial encounter; E78.00 Pure hypercholesterolemia, unspecified; I25.10 Atherosclerotic heart disease of native coronary artery without angina pectoris; J44.9 Chronic obstructive pulmonary disease, unspecified; G47.30 Sleep apnea, unspecified; E11.22 Type 2 diabetes mellitus with diabetic chronic kidney disease; E03.9 Hypothyroidism, unspecified; N18.9 Chronic kidney disease, unspecified; K21.9 Gastro-esophageal reflux disease without esophagitis; M19.90 Unspecified osteoarthritis, unspecified site; F31.9 Bipolar disorder, unspecified; J33.8 Other polyp of sinus; I12.9 Hypertensive chronic kidney disease with stage 1 through stage 4 chronic kidney disease, or unspecified chronic kidney disease; E89.0 Postprocedural hypothyroidism; F17.210 Nicotine dependence, cigarettes, uncomplicated; Z96.649 Presence of unspecified artificial hip joint; Q74.1 Congenital malformation of knee; Z86.73 Personal history of transient ischemic attack (TIA), and cerebral infarction without residual deficits; Z86.711 Personal history of pulmonary embolism; Z85.3 Personal history of malignant neoplasm of breast; Z95.5 Presence of coronary angioplasty implant and graft; Z90.49 Acquired absence of other specified parts of digestive tract; Z90.12 Acquired absence of left breast and nipple; Z79.899 Other long term (current) drug therapy; Z88.8 Allergy status to other drugs, medicaments and biological substances; Z88.6 Allergy status to analgesic agent; Z91.040 Latex allergy status; Z90.710 Acquired absence of both cervix and uterus; Z91.19 Patient's noncompliance with other medical treatment and regimen; Z85.850 Personal history of malignant neoplasm of thyroid; Z82.49 Family history of ischemic heart disease and other diseases of the circulatory system
CPT/HCPCS: 36415; 70450; 70551; 71045; 72148; 72170; 74176; 80053; 80307; 81001; 82962; 84443; 85025; 87040; 87086; 93005; 93010; 94640; 96365; 96375; 96376; 99285; J0696; J1170; J1650; J1815; J2405; J3490; J7030; J7620; L1830

== ENCOUNTER 2018-02-14 11:45 | Emergency (ER) | payer BC, MEDICAID ==
[2018-02-14] MEDS ORDERED: NORMAL SALINE 500 ML IV ONE ×2 (12:54→17:33)
[2018-02-14] MEDS ORDERED: ONDANSETRON HCL INJ/PF 4 MG/2 ML SDV IV ONE ×2 (12:54→17:37)
--- NOTE | 2018-02-14 12:57 | ER Document Report ---
ED Medical Screen (RME) - General Chief Complaint: Leg Pain Stated Complaint: LEG PAIN Time Seen by Provider: 02/14/18 12:51 Mode of Arrival: Wheelchair Information source: Patient, [facility] Records Notes: 62-year-old female with hypertension, hyperlipidemia, coronary artery disease, COPD presents with request to "check myself back in". Patient was admitted to the hospital for inability to ambulate last week. She states that she left AGAINST MEDICAL ADVICE. She is back now complaining of persistent vomiting and inability to tolerate any food or fluids. I have greeted and performed a rapid initial assessment of this patient. A comprehensive ED assessment and evaluation of the patient, analysis of test results and completion of medical decision making process we will be contacted by additional ED providers. PHYSICAL EXAMINATION: Vital signs reviewed-hypertensive, afebrile GENERAL: Nontoxic, dry mucous membranes LUNGS: No respiratory distress NEUROLOGICAL: Normal speech, PSYCH: Normal mood, normal affect. SKIN: Tenting TRAVEL OUTSIDE OF THE [place] IN LAST 30 DAYS: No - HPI Onset: Other Onset/Duration: Gradual, Persistent Quality of pain: No pain Associated Symptoms: Nausea, Vomiting. denies: Abdominal pain, Chest pain, Shortness of breath Exacerbated by: Food Relieved by: Denies Similar symptoms previously: Yes Recently seen / treated by doctor: Yes - Related Data Smoking: Cigarettes Frequency of alcohol use: None Drug Abuse: None Allergies/Adverse Reactions: codeine Allergy (Verified 02/14/18 11:47) Itching latex Allergy (Verified 02/14/18 11:47) Hives liothyronine [From Cytomel] Allergy (Verified 02/14/18 11:47) Shortness of Breath morphine [Morphine] Allergy (Verified 02/14/18 11:47) Itching nalbuphine [From Nubain] Allergy (Verified 02/14/18 11:47) Itching hydrocodone Adverse Reaction (Mild, Verified 02/14/18 11:47) Rash plastic tape Allergy (Uncoded 02/14/18 11:47) Itching Past Medical History - Social History Chew tobacco use (# tins/day): No Frequency of alcohol use: None Drug Abuse: Marijuana - Past Medical History Cardiac Medical History: Reports: Hx Coronary Artery Disease, Hx Hypercholesterolemia, Hx Hypertension, Hx Pulmonary Embolism Denies: Hx Heart Attack Pulmonary Medical History: Reports: Hx Asthma, Hx Bronchitis, Hx COPD, Hx Pneumonia, Hx Sleep Apnea Denies: Hx Tuberculosis Neurological Medical History: Reports: Hx Cerebrovascular Accident - Weakness Rt Leg, uses cane. Denies: Hx Seizures Endocrine Medical History: Reports: Hx Diabetes Mellitus Type 2, Hx Hypothyroidism Renal/ Medical History: Denies: Hx Peritoneal Dialysis Malignancy Medical History: Reports: Hx Breast Cancer GI Medical History: Reports: Hx Gastroesophageal Reflux Disease Musculoskeltal Medical History: Reports Hx Arthritis Psychiatric Medical History: Reports: Hx Bipolar Disorder, Hx Depression Past Surgical History: Reports: Hx Appendectomy, Hx Cardiac Catheterization - stent x 1, Hx Cholecystectomy, Hx Coronary Stent, Hx Mastectomy - left side, pt states many years ago, Hx Thyroid Surgery - thyroid removal - Immunizations Hx Diphtheria, Pertussis, Tetanus Vaccination: Yes History of Influenza Vaccine for 11/2016 - 04/2017 Season: Yes Influenza Administration Date for 11/2016 - 04/2017 Season: 11/29/16 Physical Exam - Vital signs Vitals: Temp Pulse Resp BP Pulse Ox 98.1 F 93 16 155/104 H 96 02/14/18 12:00 02/14/18 12:00 02/14/18 12:00 02/14/18 12:00 02/14/18 12:00 Course - Vital Signs Vital signs: Temp Pulse Resp BP Pulse Ox 98.1 F 93 16 155/104 H 96 02/14/18 12:00 02/14/18 12:00 02/14/18 12:00 02/14/18 12:00 02/14/18 12:00 Doctor's Discharge - Discharge Referrals: TYRON WOODALL MD [Primary Care Provider] - Follow up as needed
[2018-02-14 13:21] LABS: ABSOLUTE BASOPHILS # (AUTO) 0.1 10^3/uL (0.0-0.2); ABSOLUTE EOSINOPHILS # (AUTO) 0.1 10^3/uL (0.0-0.6); ABSOLUTE LYMPHOCYTES (AUTO) 1.8 10^3/uL (0.5-4.7); ABSOLUTE MONOCYTES (AUTO) 0.6 10^3/uL (0.1-1.4); ABSOLUTE NEUT (AUTO) 7.6 10^3/uL (1.7-8.2); BASOPHILS % (AUTO) 1.3 % (0-2); EOSINOPHILS % (AUTO) 0.9 % (0-6); HEMATOCRIT 44.3 % (36.0-47.0); HEMOGLOBIN 15.9 g/dL (12.0-15.5); LYMPHOCYTES % (AUTO) 17.7 % (13-45); MEAN CORPUSCULAR HEMOGLOBIN 32.8 pg (27.0-33.4); MEAN CORPUSCULAR HGB CONC 35.8 g/dL (32.0-36.0); MEAN CORPUSCULAR VOLUME 92 fl (80-97); MONOCYTES % (AUTO) 5.6 % (3-13); PLATELET COUNT 506 10^3/uL (150-450); RED BLOOD COUNT 4.83 10^6/uL (3.72-5.28); RED CELL DISTRIBUTION WIDTH 15.5 % (11.5-14.0); SEGMENTED NEUTROPHILS % (AUTO) 74.5 % (42-78); TOTAL CELLS COUNTED % (AUTO) 100 %; WHITE BLOOD COUNT 10.2 10^3/uL (4.0-10.5)
[2018-02-14 13:30] LABS: APPEARANCE,URINE CLEAR; BILIRUBIN,URINE NEGATIVE (NEGATIVE); COLOR,URINE YELLOW; GLUCOSE, URINE 50 mg/dL (NEGATIVE); KETONES,URINE TRACE mg/dL (NEGATIVE); LEUKOCYTE ESTERASE,URINE NEGATIVE (NEGATIVE); NITRITE,URINE NEGATIVE (NEGATIVE); PROTEIN,URINE >=500 mg/dL (NEGATIVE); URINE SPECIFIC GRAVITY 1.014; UROBILINOGEN,URINE NEGATIVE mg/dL (<2.0)
[2018-02-14 16:26] LABS: ALANINE AMINOTRANSFERASE 34 U/L (9-52); ALBUMIN 3.7 g/dL (3.5-5.0); ALKALINE PHOSPHATASE 155 U/L (38-126); ANION GAP 6 (5-19); ASPARTATE AMINO TRANSFERASE 51 U/L (14-36); BILIRUBIN,DIRECT 0.2 mg/dL (0.0-0.4); BILIRUBIN,TOTAL 0.4 mg/dL (0.2-1.3); BLOOD UREA NITROGEN 17 mg/dL (7-20); CALCIUM 8.9 mg/dL (8.4-10.2); CARBON DIOXIDE 28 mmol/L (22-30); CHLORIDE 97 mmol/L (98-107); GLUCOSE 108 mg/dL (75-110); POTASSIUM 3.7 mmol/L (3.6-5.0); SODIUM 130.9 mmol/L (137-145); TOTAL PROTEIN 6.3 g/dL (6.3-8.2)
--- NOTE | 2018-02-14 17:18 | ER Document Report ---
ED General - General Chief Complaint: Leg Pain Stated Complaint: LEG PAIN Time Seen by Provider: 02/14/18 12:51 Mode of Arrival: Wheelchair Information source: Patient Notes: 62-year-old female presents emergency department with complaints of nausea, vomiting. Patient states that she was in the hospital last week for a right patella fracture and left AGAINST MEDICAL ADVICE. Patient states that in the last couple days she is felt "sick." Patient denies any chest pain, shortness of breath, abdominal pain. Patient does have a history of hypertension, hyperlipidemia, coronary artery disease. TRAVEL OUTSIDE OF THE [place] IN LAST 30 DAYS: No - HPI Onset: Yesterday Onset/Duration: Gradual Quality of pain: No pain Severity: Mild Associated symptoms: Nausea, Vomiting Exacerbated by: Denies Relieved by: Denies Similar symptoms previously: No Recently seen / treated by doctor: Yes - Related Data Allergies/Adverse Reactions: codeine Allergy (Verified 02/14/18 11:47) Itching latex Allergy (Verified 02/14/18 11:47) Hives liothyronine [From Cytomel] Allergy (Verified 02/14/18 11:47) Shortness of Breath morphine [Morphine] Allergy (Verified 02/14/18 11:47) Itching nalbuphine [From Nubain] Allergy (Verified 02/14/18 11:47) Itching hydrocodone Adverse Reaction (Mild, Verified 02/14/18 11:47) Rash plastic tape Allergy (Uncoded 02/14/18 11:47) Itching Past Medical History - General Information source: [facility], [facility] Records - Social History Smoking Status: Current Every Day Smoker Chew tobacco use (# tins/day): No Frequency of alcohol use: None Drug Abuse: Marijuana Family History: CAD Patient has suicidal ideation: No Patient has homicidal ideation: No - Past Medical History Cardiac Medical History: Reports: Hx Coronary Artery Disease, Hx Hypercholesterolemia, Hx Hypertension, Hx Pulmonary Embolism Denies: Hx Heart Attack Pulmonary Medical History: Reports: Hx Asthma, Hx Bronchitis, Hx COPD, Hx Pneumonia, Hx Sleep Apnea Denies: Hx Tuberculosis Neurological Medical History: Reports: Hx Cerebrovascular Accident - Weakness Rt Leg, uses cane. Denies: Hx Seizures Endocrine Medical History: Reports: Hx Diabetes Mellitus Type 2, Hx Hypothyroidism Renal/ Medical History: Denies: Hx Peritoneal Dialysis Malignancy Medical History: Reports: Hx Breast Cancer GI Medical History: Reports: Hx Gastroesophageal Reflux Disease Musculoskeletal Medical History: Reports Hx Arthritis Psychiatric Medical History: Reports: Hx Bipolar Disorder, Hx Depression Past Surgical History: Reports: Hx Appendectomy, Hx Cardiac Catheterization - stent x 1, Hx Cholecystectomy, Hx Coronary Stent, Hx Mastectomy - left side, pt states many years ago, Hx Thyroid Surgery - thyroid removal - Immunizations Hx Diphtheria, Pertussis, Tetanus Vaccination: Yes Hx Pneumococcal Vaccination: 11/29/16 Review of Systems - Review of Systems Constitutional: Chills, Weakness EENT: No symptoms reported Cardiovascular: No symptoms reported Respiratory: No symptoms reported Gastrointestinal: Nausea, Vomiting Genitourinary: No symptoms reported Female Genitourinary: No symptoms reported Musculoskeletal: No symptoms reported Skin: No symptoms reported Hematologic/Lymphatic: No symptoms reported Neurological/Psychological: No symptoms reported -: Yes All other systems reviewed and negative Physical Exam - Vital signs Vitals: Temp Pulse Resp BP Pulse Ox 98.1 F 93 16 155/104 H 96 02/14/18 12:00 02/14/18 12:00 02/14/18 12:00 02/14/18 12:00 02/14/18 12:00 - Notes Notes: PHYSICAL EXAMINATION: GENERAL: Well-appearing, well-nourished and in no acute distress. HEAD: Atraumatic, normocephalic. EYES: Pupils equal round and reactive to light, extraocular movements intact, conjunctiva are normal. ENT: Nares patent, oropharynx clear without exudates. Moist mucous membranes. NECK: Normal range of motion, supple without lymphadenopathy LUNGS: Breath sounds clear to auscultation bilaterally and equal. No wheezes rales or rhonchi. HEART: Regular rate and rhythm without murmurs ABDOMEN: Soft, nontender, nondistended abdomen. No guarding, no rebound. No masses appreciated. Female : deferred Musculoskeletal: Normal range of motion, no pitting or edema. No cyanosis. L knee tenderness to palpation. Able to flex/extend knee despite pain. 2+ DP/PT pulses. Able to ambulate. NEUROLOGICAL: Cranial nerves grossly intact. Normal speech, normal gait. Normal sensory, motor exams PSYCH: Normal mood, normal affect. SKIN: Warm, Dry, normal turgor, no rashes or lesions noted. Course - Re-evaluation Re-evalutation: 02/14/18 18:47 Labs obtained. The patient appears dehydrated. Patient given a liter of fluids and Zofran while in the emergency department. On reevaluation, patient states that she is feeling improved. I will discharge the patient home with a prescription for Zofran. I reviewed Dr. Coleman's note from her admission. He recommended physical therapy, weight bearing as tolerated. I discussed this with the patient. I told her to wear the knee immobilizer that she was provided , to attend physical therapy as prescribed, to weight-bear as tolerated, and to follow-up with an orthopedic surgeon if she continues to have left knee pain. Patient is agreeable with the plan of care. 02/14/18 18:54 - Vital Signs Vital signs: Temp Pulse Resp BP Pulse Ox 98.1 F 93 16 155/104 H 96 02/14/18 12:00 02/14/18 12:00 02/14/18 12:00 02/14/18 12:00 02/14/18 12:00 - Laboratory Result Diagrams: 02/14/18 13:06 02/14/18 15:27 Laboratory results interpreted by me: 02/14/18 02/14/18 02/14/18 13:06 13:06 15:27 Hgb 15.9 H RDW 15.5 H Plt Count 506 H Sodium 130.9 L Chloride 97 L Creatinine 1.73 H Est GFR ( Amer) 36 L Est GFR (Non-Af Amer) 30 L AST 51 H Alkaline Phosphatase 155 H Urine Protein >=500 H Urine Glucose (UA) 50 H Urine Ketones TRACE H Discharge - Discharge Clinical Impression: Hyponatremia, Dehydration Nausea & vomiting Qualifiers: Vomiting type: unspecified Vomiting Intractability: non-intractable Qualified Code(s): R11.2 - Nausea with vomiting, unspecified Condition: Good Disposition: HOME, SELF-CARE Instructions: Vomiting ([facility]), Dehydration ([facility]) Prescriptions: Ondansetron [Zofran Odt 4 mg Tablet] 1 tab PO Q4H PRN #15 tab.rapdis PRN Reason: For Nausea/Vomiting Referrals: TYRON WOODALL MD [Primary Care Provider] - Follow up as needed
[2018-02-14] MEDS ORDERED: CLONIDINE HCL 0.1 MG TABLET PO ONE (19:06)
[2018-02-14 19:29] VITALS: BP 160/86
== END 2018-02-14 19:30 | disposition home or self-care (01) ==
LOC: ER 11:45
DX: R11.2 Nausea with vomiting, unspecified (principal); E87.1 Hypo-osmolality and hyponatremia; E86.0 Dehydration; I10 Essential (primary) hypertension; I25.10 Atherosclerotic heart disease of native coronary artery without angina pectoris; J44.9 Chronic obstructive pulmonary disease, unspecified; E11.9 Type 2 diabetes mellitus without complications; Z88.5 Allergy status to narcotic agent; Z91.040 Latex allergy status; Z88.8 Allergy status to other drugs, medicaments and biological substances; Z91.048 Other nonmedicinal substance allergy status; Z85.3 Personal history of malignant neoplasm of breast
CPT/HCPCS: 96376; 99283; 96361; 96374; 36415; 85025; 80053; 81001; J2405; J7040

== ENCOUNTER → 2018-02-25 | Outpatient (CLI) | payer BC, MEDICAID ==
--- NOTE | 2018-02-25 16:04 | RADIOLOGY REPORT (SQ) ---
EXAM DESCRIPTION: VENOUS UNILATERAL LOWER COMPLETED DATE/TIME: 02/25/2018 3:55 pm REASON FOR STUDY: LLE SWELLING M79.89 OTHER SPECIFIED SOFT TISSUE DISORDERS COMPARISON: None. TECHNIQUE: Dynamic and static collado scale and color images acquired of the left leg venous system. Se lected spectral images acquired with additional compression and augmentation maneuvers. The contralat eral common femoral vein and saphenofemoral junction were also imaged. Images stored on PACS. LIMITATIONS: None. FINDINGS: COMMON FEMORAL: Normal phasicity, compression and augmentation. No visualized echogenic ma terial on collado scale. No defects on color images. FEMORAL: Normal compression and augmentation. No visualized echogenic material on collado scale. No defe cts on color images. POPLITEAL: Normal compression, augmentation. No visualized echogenic material on collado scale. No defec ts on color images. CALF VESSELS: Normal compression, augmentation. No visualized echogenic material on collado scale. No de fects on color images. GSV and SSV: Normal compression, augmentation. No visualized echogenic material on collado scale. No def ects on color images. ANY DEEP VENOUS INSUFFICIENCY: Not evaluated. ANY EVIDENCE OF POPLITEAL CYST: No. OTHER: No other significant finding. CONTRALATERAL COMMON FEMORAL VEIN AND SAPHENOFEMORAL JUNCTION: Normal phasicity, compression and augmentation. No visualized echogenic material on collado scale. No de fects on color images. IMPRESSION: NO EVIDENCE DVT OR SVT IN THE LEFT LEG. TECHNICAL DOCUMENTATION: JOB ID: [id number] [employer]- All Rights Reserved Reading location - IP/workstation name: [email or web address]
== END ==
LOC: SP 15:44
PROVIDERS: ATTEND Physician Assistant
DX: M79.89 Other specified soft tissue disorders (principal)
CPT/HCPCS: 93971

== ENCOUNTER → 2018-06-09 | Outpatient (CLI) | payer BC, MEDICAID ==
[2018-06-09 15:26] LABS: ABSOLUTE BASOPHILS # (AUTO) 0.2 10^3/uL (0.0-0.2); ABSOLUTE EOSINOPHILS # (AUTO) 0.1 10^3/uL (0.0-0.6); ABSOLUTE LYMPHOCYTES (AUTO) 2.4 10^3/uL (0.5-4.7); ABSOLUTE MONOCYTES (AUTO) 0.5 10^3/uL (0.1-1.4); ABSOLUTE NEUT (AUTO) 6.9 10^3/uL (1.7-8.2); BASOPHILS % (AUTO) 1.7 % (0-2); EOSINOPHILS % (AUTO) 1.4 % (0-6); HEMATOCRIT 41.8 % (36.0-47.0); HEMOGLOBIN 14.5 g/dL (12.0-15.5); LYMPHOCYTES % (AUTO) 23.4 % (13-45); MEAN CORPUSCULAR HEMOGLOBIN 31.4 pg (27.0-33.4); MEAN CORPUSCULAR HGB CONC 34.7 g/dL (32.0-36.0); MEAN CORPUSCULAR VOLUME 90 fl (80-97); MONOCYTES % (AUTO) 5.3 % (3-13); PLATELET COUNT 458 10^3/uL (150-450); RED BLOOD COUNT 4.63 10^6/uL (3.72-5.28); RED CELL DISTRIBUTION WIDTH 12.9 % (11.5-14.0); SEGMENTED NEUTROPHILS % (AUTO) 68.2 % (42-78); TOTAL CELLS COUNTED % (AUTO) 100 %; WHITE BLOOD COUNT 10.1 10^3/uL (4.0-10.5)
[2018-06-09 15:46] LABS: ALANINE AMINOTRANSFERASE 20 U/L (9-52); ALBUMIN 3.4 g/dL (3.5-5.0); ALKALINE PHOSPHATASE 167 U/L (38-126); ASPARTATE AMINO TRANSFERASE 24 U/L (14-36); BILIRUBIN,DIRECT 0.3 mg/dL (0.0-0.4); BILIRUBIN,TOTAL 0.3 mg/dL (0.2-1.3); BLOOD UREA NITROGEN 29 mg/dL (7-20); CALCIUM 8.6 mg/dL (8.4-10.2); CARBON DIOXIDE 29 mmol/L (22-30); CHLORIDE 99 mmol/L (98-107); GLUCOSE 88 mg/dL (75-110); POTASSIUM 4.3 mmol/L (3.6-5.0); SODIUM 131.5 mmol/L (137-145); TOTAL PROTEIN 6.4 g/dL (6.3-8.2)
[2018-06-09 15:48] LABS: ANION GAP 4 (5-19)
[2018-06-09 15:58] LABS: FREE T4 (FREE THYROXINE) 0.45 ng/dL (0.78-2.19)
[2018-06-09 16:13] LABS: THYROID STIMULATING HORMONE 45.7 uIU/mL (0.47-4.68)
--- NOTE | 2018-06-09 17:58 | EKG REPORT ---
SEVERITY:- ABNORMAL ECG - SINUS RHYTHM ABNRM R PROG, CONSIDER ASMI OR LEAD PLACEMENT : Confirmed by: Emilio Clay 09-Jun-2018 17:57:38
--- NOTE | 2018-06-10 09:55 | XCELERA REPORT ---
[address] [place] [facility] [address] Lower Extremity Venous Evaluation Procedure: Color flow and duplex imaging of the veins of the left lower extremity as well as the right Common Femoral vein. Right Sided Venous Evaluation The right common femoral vein is fully compressible. Spontaneous and phasic flow is present in the right common femoral vein. Left Sided Venous Evaluation Normal vessel filling wall to wall, compression and augmentation as well as Colour flow down to the infrageniculate veins. Interpretation Summary No duplex evidence of DVT or obstruction in the left lower extremity nor in the right Common Femoral vein. Name: CRISTIANE LOVE Age: 62 yrs Gender: Female : 1955 Patient Status: Outpatient Patient Location: [facility] Study Date: 06/09/2018 04:09 PM Reason For Study: LLE SWELLING Ordering Physician: ROBIN DOMÍNGUEZ Performed By: Sedrick Nolan : ROBIN DOMÍNGUEZ > Jordan Albarado
== END ==
LOC: RAD 14:59
PROVIDERS: ATTEND Physician Assistant
DX: R00.2 Palpitations (principal); M79.89 Other specified soft tissue disorders
CPT/HCPCS: 36415; 80053; 83735; 84439; 84443; 85025; 93005; 93010; 93971

== ENCOUNTER 2018-06-18 09:50 | Emergency (ER) | payer BC, MEDICAID ==
--- NOTE | 2018-06-18 10:02 | ER Document Report ---
HPI - HPI Time Seen by Provider: 06/18/18 10:00 Pain Level: 4 Context: Patient is a 62-year-old who appears older than stated age female who presents emergency department with a chief complaint of bilateral knee pain. She states that she fell 2 days ago. She does note some edema and some ecchymosis to both of her knees, the left greater than the right. She states that she is having a hard time walking, but is able to walk. She has an extensive past medical hist ory and takes multiple medications for her medical problems. She is currently on 800 mg of ibuprofen, but has not taken her dose this morning. - CONSTITUTIONAL Constitutional: DENIES: Fever, Chills - EENT EENT: DENIES: Sore Throat - NEURO Neurology: DENIES: Headache - CARDIOVASCULAR Cardiovascular: DENIES: Chest pain - RESPIRATORY Respiratory: DENIES: Trouble Breathing, Coughing - GASTROINTESTINAL Gastrointestinal: DENIES: Abdominal Pain - REPRODUCTIVE Reproductive: DENIES: : - MUSCULOSKELETAL Musculoskeletal: REPORTS: Extremity pain - Bilateral knees. DENIES: Back Pain - DERM Skin Color: Normal Skin Problems: None Past Medical History - General Information source: Patient - Social History Smoking Status: Current Every Day Smoker Family History: CAD - Past Medical History Cardiac Medical History: Reports: Hx Coronary Artery Disease, Hx Hypercholesterolemia, Hx Hypertension, Hx Pulmonary Embolism Denies: Hx Heart Attack Pulmonary Medical History: Reports: Hx Asthma, Hx Bronchitis, Hx COPD, Hx Pneumonia, Hx Sleep Apnea Denies: Hx Tuberculosis Neurological Medical History: Reports: Hx Cerebrovascular Accident - Weakness Rt Leg, uses cane. Denies: Hx Seizures Endocrine Medical History: Reports: Hx Diabetes Mellitus Type 2, Hx Hypothyroidism Renal/ Medical History: Denies: Hx Peritoneal Dialysis Malignancy Medical History: Reports: Hx Breast Cancer GI Medical History: Reports: Hx Gastroesophageal Reflux Disease Musculoskeletal Medical History: Reports Hx Arthritis Psychiatric Medical History: Reports: Hx Bipolar Disorder, Hx Depression Past Surgical History: Reports: Hx Appendectomy, Hx Cardiac Catheterization - stent x 1, Hx Cholecystectomy, Hx Coronary Stent, Hx Mastectomy - left side, pt states many years ago, Hx Thyroid Surgery - thyroid removal - Immunizations Hx Diphtheria, Pertussis, Tetanus Vaccination: Yes Hx Pneumococcal Vaccination: 11/29/16 Vertical Provider Document - CONSTITUTIONAL Agree With Documented VS: Yes Exam Limitations: No Limitations General Appearance: No Apparent Distress - INFECTION CONTROL TRAVEL OUTSIDE OF THE [place] IN LAST 30 DAYS: No - HEENT HEENT: Atraumatic, Normocephalic - RESPIRATORY Respiratory: Breath Sounds Normal, No Respiratory Distress - CARDIOVASCULAR Cardiovascular: Regular Rate, Regular Rhythm Pulses: Normal: Radial - MUSCULOSKELETAL/EXTREMETIES Musculoskeletal/Extremeties: Tender - Bilateral knees, Edema - Bilateral knees, greater on left side, Eccymosis - Bilateral knees, greater on left side. Right side is on the medial aspect of the - NEURO Level of Consciousness: Awake, Alert, Appropriate Motor/Sensory: No Sensory Deficit - DERM Integumentary: Warm, Dry Course - Re-evaluation Re-evalutation: 06/18/18 11:10 Patient's x-ray of bilateral knees are negative for any acute fracture. Ankle-brachial index is not indicated at this time. I do not suspect any vascular compromise. She is to follow-up with her primary care provider. She states that she does feel better after receiving the Toradol. I have instructed her not to take her ibuprofen this morning. I have instructed to continue to take her ibuprofen. I do not suspect a septic joint, or any life-threatening etiology at this time. We will provide an Dagoberto bandage for her, as she has refused crutches and a knee immobilizer, due to her normal slow mobility issues. Verbal discharge instructions were given to the patient. They verbalized understanding. They are stable for discharge. 06/18/18 11:21 Patient's oxygen saturation is 89 on room air. She is a 2 pack-a-day smoker. I'm aware that her oxygen saturation is at this level. She has COPD and this is an acceptable level. Discharge - Discharge Clinical Impression: Bilateral knee pain Qualifiers: Chronicity: acute Qualified Code(s): M25.561 - Pain in right knee Fall Qualifiers: Encounter type: initial encounter Qualified Code(s): W19.XXXA - Unspecified fall, initial encounter Condition: Stable Disposition: HOME, SELF-CARE Instructions: Ice & Elevation ([facility]), Sprained Knee ([facility]) Additional Instructions: You were seen today in the emergency department after a fall. Your x-rays are normal. You were given Toradol here in the emergency department. Please do not take your ibuprofen this morning. Please continue to take your ibuprofen for anti-inflammatory effects this evening. Please follow-up with your primary care provider in regards to this visit. You have been provided Dagoberto wrap. Rest your knees, ice them (20 minutes on, 20 minutes off), and apply an dagoberto wrap as needed you may elevate them also to help with any swelling. If you have worsening symptoms, or unable to walk, or have any symptoms that are worrisome to you, please return to the emergency department. Referrals: ROBIN DOMÍNGUEZ PA [Primary Care Provider] - 06/20/18
[2018-06-18] MEDS ORDERED: KETOROLAC TROMETHAMINE 60 MG/2 ML SDV IM ONE (10:28)
--- NOTE | 2018-06-18 10:50 | RADIOLOGY REPORT (SQ) ---
EXAM DESCRIPTION: KNEE LEFT 4 VIEW COMPLETED DATE/TIME: 06/18/2018 10:25 am REASON FOR STUDY: fall COMPARISON: 02/10/2018, 01/29/2015 NUMBER OF VIEWS: Four views. TECHNIQUE: AP, lateral, and both oblique radiographic images acquired of the left knee. LIMITATIONS: None. FINDINGS: MINERALIZATION: Normal for age. BONES: No acute fracture or dislocation. No worrisome bone lesions. JOINT: No effusion. No malalignment SOFT TISSUES: No soft tissue swelling. No radio-opaque foreign body. Popliteal artery calcification OTHER: No other significant finding. IMPRESSION: NEGATIVE STUDY OF THE LEFT KNEE. NO RADIOGRAPHIC EVIDENCE OF ACUTE INJURY. TECHNICAL DOCUMENTATION: JOB ID: [id number] [employer]- All Rights Reserved Reading location - IP/workstation name: [email or web address]
--- NOTE | 2018-06-18 10:51 | RADIOLOGY REPORT (SQ) ---
EXAM DESCRIPTION: KNEE RIGHT 4 VIEWS COMPLETED DATE/TIME: 06/18/2018 10:25 am REASON FOR STUDY: fall COMPARISON: 02/10/2018 NUMBER OF VIEWS: Four views. TECHNIQUE: AP, lateral, and both oblique radiographic images acquired of the right knee. LIMITATIONS: None. FINDINGS: MINERALIZATION: Normal for age. BONES: No acute fracture or dislocation. No worrisome bone lesions. JOINT: No effusion. No malalignment SOFT TISSUES: No soft tissue swelling. No radio-opaque foreign body. Popliteal artery calcification . OTHER: No other significant finding. IMPRESSION: NEGATIVE STUDY OF THE RIGHT KNEE. NO RADIOGRAPHIC EVIDENCE OF ACUTE INJURY. TECHNICAL DOCUMENTATION: JOB ID: [id number] [employer]- All Rights Reserved Reading location - IP/workstation name: [email or web address]
[2018-06-18 11:24] VITALS: BP 169/92
== END 2018-06-18 11:33 | disposition home or self-care (01) ==
LOC: ER 09:50
DX: S80.02XA Contusion of left knee, initial encounter (principal); S80.01XA Contusion of right knee, initial encounter; M25.561 Pain in right knee; M25.562 Pain in left knee; W19.XXXA Unspecified fall, initial encounter; F17.200 Nicotine dependence, unspecified, uncomplicated; I25.10 Atherosclerotic heart disease of native coronary artery without angina pectoris; I10 Essential (primary) hypertension; J44.9 Chronic obstructive pulmonary disease, unspecified; E11.9 Type 2 diabetes mellitus without complications; Z79.899 Other long term (current) drug therapy; Z85.3 Personal history of malignant neoplasm of breast; Z95.5 Presence of coronary angioplasty implant and graft
CPT/HCPCS: 99283; 96372; 73564 ×2; J1885

== ENCOUNTER → 2018-08-29 | Outpatient (CLI) | payer BC, MEDICAID ==
[2018-08-29 12:32] LABS: HEMATOCRIT 37.7 % (36.0-47.0); HEMOGLOBIN 12.9 g/dL (12.0-15.5); MEAN CORPUSCULAR HEMOGLOBIN 30.1 pg (27.0-33.4); MEAN CORPUSCULAR HGB CONC 34.4 g/dL (32.0-36.0); MEAN CORPUSCULAR VOLUME 88 fl (80-97); PLATELET COUNT 331 10^3/uL (150-450); RED CELL DISTRIBUTION WIDTH 13.6 % (11.5-14.0); WHITE BLOOD COUNT 8.1 10^3/uL (4.0-10.5)
[2018-08-29 12:49] LABS: APPEARANCE,URINE CLEAR; BILIRUBIN,URINE NEGATIVE (NEGATIVE); COLOR,URINE STRAW; GLUCOSE, URINE 50 mg/dL (NEGATIVE); KETONES,URINE NEGATIVE (NEGATIVE); LEUKOCYTE ESTERASE,URINE NEGATIVE (NEGATIVE); NITRITE,URINE NEGATIVE (NEGATIVE); PROTEIN,URINE 100 mg/dL (NEGATIVE); URINE SPECIFIC GRAVITY 1.005; UROBILINOGEN,URINE NEGATIVE mg/dL (<2.0)
[2018-08-29 12:55] LABS: ANION GAP 10 (5-19); BLOOD UREA NITROGEN 43 mg/dL (7-20); CALCIUM 8.7 mg/dL (8.4-10.2); CARBON DIOXIDE 25 mmol/L (22-30); CHLORIDE 100 mmol/L (98-107); GLUCOSE 117 mg/dL (75-110); PHOSPHORUS 6.7 mg/dL (2.5-4.5); POTASSIUM 4.4 mmol/L (3.6-5.0); SODIUM 134.9 mmol/L (137-145)
[2018-08-29 13:12] LABS: URINE CREATININE 17.7 mg/dL (15-278)
[2018-08-29 13:19] LABS: UR PRO/CREAT RATIO RESULT 13.2 mg/mg (0.0-0.2); URINE PROTEIN 233.5 mg/dL (<12)
== END ==
LOC: OD 12:02
PROVIDERS: ATTEND Physician Assistant Medical
DX: I12.9 Hypertensive chronic kidney disease with stage 1 through stage 4 chronic kidney disease, or unspecified chronic kidney disease (principal); N18.3 Chronic kidney disease, stage 3 (moderate); R80.9 Proteinuria, unspecified
CPT/HCPCS: 36415; 80048; 81001; 82570; 83970; 84100; 84156; 85027

== ENCOUNTER → 2018-11-11 | Outpatient (CLI) | payer BC, MEDICAID ==
--- NOTE | 2018-11-11 14:11 | RADIOLOGY REPORT (SQ) ---
EXAM DESCRIPTION: CHEST PA/LATERAL COMPLETED DATE/TIME: 11/11/2018 1:45 pm REASON FOR STUDY: COUGH COMPARISON: AP view of the chest from 02/10/2018. EXAM PARAMETERS: NUMBER OF VIEWS: two views TECHNIQUE: Digital Frontal and Lateral radiographic views of the chest acquired. RADIATION DOSE: NA LIMITATIONS: none FINDINGS: LUNGS AND PLEURA: No consolidation, pleural effusion or pneumothorax. MEDIASTINUM AND HILAR STRUCTURES: Unchanged mediastinal and hilar contours. HEART AND VASCULAR STRUCTURES: The cardiac silhouette and pulmonary vasculature are within normal pablo its. BONES: No acute findings. HARDWARE: None in the chest. OTHER: Surgical clips projecting above the thoracic inlet. IMPRESSION: NO SIGNIFICANT RADIOGRAPHIC FINDING IN THE CHEST. TECHNICAL DOCUMENTATION: JOB ID: [id number] [employer]- All Rights Reserved Reading location - IP/workstation name: [email or web address]
== END ==
LOC: OD 13:35
PROVIDERS: ATTEND Physician Assistant
DX: R05 Cough (principal)
CPT/HCPCS: 71046

== ENCOUNTER 2018-11-18 11:19 | Emergency (ER) | payer BC, MEDICAID ==
--- NOTE | 2018-11-18 11:35 | ER Document Report ---
ED Medical Screen (RME) - General Chief Complaint: S/S of Possible Stroke Stated Complaint: RIGHT SIDE WEAKNESS Time Seen by Provider: 11/18/18 11:28 Primary Care Provider: ROBIN DOMÍNGUEZ PA [Primary Care Provider] - Follow up as needed Mode of Arrival: Wheelchair Information source: Patient Notes: 63-year-old female presents emergency department with complaints of numbness in her right arm since 0400 this morning. Patient does have a history of stroke. Patient also reports she HAs been sick for 3 weeks with nasal congestion and a cough. She reports she vomits after cough frequently. Reports she had a hard time taking her blood pressure medication this morning because she was coughing so much. Patient reports she has been to see her lead solutions architect Dr. Carlin and and her primary care provider and been placed on 2 antibiotics nothing is helping her. Reports she had a x-ray done this past Wednesday and she did not have pneumonia. Patient on room air. Respiratory rate even unlabored. Patient very tearful. I have greeted and performed a rapid initial assessment of this patient. A comprehensive ED assessment and evaluation of the patient, analysis of test results and completion of the medical decision making process will be conducted by additional ED providers. Dictation of this chart was performed using voice recognition software; therefore, there may be some unintended grammatical errors. TRAVEL OUTSIDE OF THE [place] IN LAST 30 DAYS: No - Related Data Allergies/Adverse Reactions: codeine Allergy (Verified 11/18/18 11:25) Itching latex Allergy (Verified 11/18/18 11:25) Hives liothyronine [From Cytomel] Allergy (Verified 11/18/18 11:25) Shortness of Breath morphine [Morphine] Allergy (Verified 11/18/18 11:25) Itching nalbuphine [From Nubain] Allergy (Verified 11/18/18 11:25) Itching hydrocodone Adverse Reaction (Mild, Verified 11/18/18 11:25) Rash plastic tape Allergy (Uncoded 11/18/18 11:25) Itching Past Medical History - Past Medical History Cardiac Medical History: Reports: Hx Coronary Artery Disease, Hx Hypercholesterolemia, Hx Hypertension, Hx Pulmonary Embolism Denies: Hx Heart Attack Pulmonary Medical History: Reports: Hx Asthma, Hx Bronchitis, Hx COPD, Hx Pneumonia, Hx Sleep Apnea Denies: Hx Tuberculosis Neurological Medical History: Reports: Hx Cerebrovascular Accident - Weakness Rt Leg, uses cane. Denies: Hx Seizures Endocrine Medical History: Reports: Hx Diabetes Mellitus Type 2, Hx Hypothyroidism Renal/ Medical History: Denies: Hx Peritoneal Dialysis Malignancy Medical History: Reports: Hx Breast Cancer GI Medical History: Reports: Hx Gastroesophageal Reflux Disease Musculoskeltal Medical History: Reports Hx Arthritis Psychiatric Medical History: Reports: Hx Bipolar Disorder, Hx Depression Past Surgical History: Reports: Hx Appendectomy, Hx Cardiac Catheterization - stent x 1, Hx Cholecystectomy, Hx Coronary Stent, Hx Mastectomy - left side, pt states many years ago, Hx Thyroid Surgery - thyroid removal - Immunizations Hx Diphtheria, Pertussis, Tetanus Vaccination: Yes History of Influenza Vaccine for 11/2016 - 04/2017 Season: Yes Influenza Administration Date for 11/2016 - 04/2017 Season: 11/29/16 Physical Exam - Vital signs Vitals: Temp Pulse Resp BP Pulse Ox 98 F 73 20 143/100 H 96 11/18/18 11:21 11/18/18 11:21 11/18/18 11:21 11/18/18 11:21 11/18/18 11:21 Course - Vital Signs Vital signs: Temp Pulse Resp BP Pulse Ox 98 F 73 20 143/100 H 96 11/18/18 11:21 11/18/18 11:21 11/18/18 11:21 11/18/18 11:21 11/18/18 11:21 Doctor's Discharge - Discharge Referrals: ROBIN DOMÍNGUEZ PA [Primary Care Provider] - Follow up as needed
--- NOTE | 2018-11-18 11:59 | RADIOLOGY REPORT (SQ) ---
EXAM DESCRIPTION: CT HEAD WITHOUT COMPLETED DATE/TIME: 11/18/2018 11:49 am REASON FOR STUDY: numbness starting at 0400 this AM COMPARISON: 02/10/2018 TECHNIQUE: Axial images acquired through the brain without intravenous contrast. Images reviewed wi th bone, brain and subdural windows. Additional sagittal and coronal reconstructions were generated. Images stored on PACS. All CT scanners at this facility use dose modulation, iterative reconstruction, and/or weight based d osing when appropriate to reduce radiation dose to as low as reasonably achievable (ALARA). [facility]: Dose Right [facility]: CareDose [facility]: Dose Right [facility]: Teradose 4D [facility]: WTFast RADIATION DOSE: CT Rad equipment meets quality standard of care and radiation dose reduction techniq ues were employed. CTDIvol: 53.2 mGy. DLP: 1017 mGy-cm. mGy. LIMITATIONS: None. FINDINGS: VENTRICLES: Prominent. CEREBRUM: No masses. No hemorrhage. No midline shift. Areas of low density in the white matter mos t likely due to chronic micro-vascular ischemic change. No evidence for acute infarction. CEREBELLUM: No masses. No hemorrhage. No alteration of density. No evidence for acute infarction. EXTRAAXIAL SPACES: Mild age-related involutional change. No fluid collections. No masses. ORBITS AND GLOBE: No intra- or extraconal masses. Normal contour of globe without masses. CALVARIUM: No fracture. PARANASAL SINUSES: There are retention cyst or polyps in both maxillary sinuses. SOFT TISSUES: No mass or hematoma. OTHER: No other significant finding. IMPRESSION: MILD CHRONIC CHANGES OF ATROPHY AND MICROVASCULAR ISCHEMIA. NO ACUTE PROCESS. EVIDENCE OF ACUTE STROKE: NO. TECHNICAL DOCUMENTATION: JOB ID: [id number] Quality ID # [id number]: Final reports with documentation of one or more dose reduction techniques (e.g., Au tomated exposure control, adjustment of the mA and/or kV according to patient size, use of iterative reconstruction technique) 2010 [employer]- All Rights Reserved Reading location - IP/workstation name: [email or web address]
--- NOTE | 2018-11-18 12:02 | RADIOLOGY REPORT (SQ) ---
EXAM DESCRIPTION: CHEST SINGLE VIEW COMPLETED DATE/TIME: 11/18/2018 11:53 am REASON FOR STUDY: numbness starting at 0400 this AM COMPARISON: 11/11/2018 NUMBER OF VIEWS: One view. TECHNIQUE: Single frontal radiographic view of the chest acquired. LIMITATIONS: None. FINDINGS: LUNGS AND PLEURA: No opacities, masses or pneumothorax. No pleural effusion. Stable incre ased opacity overlying the left lung field as compared to the right most likely secondary to chest wa ll asymmetry. MEDIASTINUM AND HILAR STRUCTURES: No masses. Contour normal. HEART AND VASCULAR STRUCTURES: Heart normal in size. Normal vasculature. BONES: No acute findings. HARDWARE: None in the chest. OTHER: No other significant finding. IMPRESSION: NO SIGNIFICANT RADIOGRAPHIC FINDING IN THE CHEST. TECHNICAL DOCUMENTATION: JOB ID: [id number] [employer]- All Rights Reserved Reading location - IP/workstation name: [email or web address]
[2018-11-18] MEDS ORDERED: ASPIRIN 325 MG TABLET PO ONE (12:11)
--- NOTE | 2018-11-18 12:17 | ER Document Report ---
ED Neuro Symptoms/Deficit - General Chief Complaint: S/S of Possible Stroke Stated Complaint: RIGHT SIDE WEAKNESS Time Seen by Provider: 11/18/18 11:28 Primary Care Provider: ROBIN DOMÍNGUEZ PA [Primary Care Provider] - Follow up as needed Mode of Arrival: Wheelchair Information source: Patient TRAVEL OUTSIDE OF THE [place] IN LAST 30 DAYS: No - HPI Patient complains to provider of: Other - pt woke up at 0400 today with R arm numbness. She had a CVA 2 yrs ago. Also c/o intermittent cough for the past several days with vomiting times 1 earlier today. She denies CP, SOB - Related Data Allergies/Adverse Reactions: codeine Allergy (Verified 11/18/18 11:25) Itching latex Allergy (Verified 11/18/18 11:25) Hives liothyronine [From Cytomel] Allergy (Verified 11/18/18 11:25) Shortness of Breath morphine [Morphine] Allergy (Verified 11/18/18 11:25) Itching nalbuphine [From Nubain] Allergy (Verified 11/18/18 11:25) Itching hydrocodone Adverse Reaction (Mild, Verified 11/18/18 11:25) Rash plastic tape Allergy (Uncoded 11/18/18 11:25) Itching Past Medical History - General Information source: Patient - Social History Smoking Status: Current Every Day Smoker Family History: CAD Patient has suicidal ideation: No Patient has homicidal ideation: No - Past Medical History Cardiac Medical History: Reports: Hx Coronary Artery Disease, Hx Hypercholesterolemia, Hx Hypertension, Hx Pulmonary Embolism Denies: Hx Heart Attack Pulmonary Medical History: Reports: Hx Asthma, Hx Bronchitis, Hx COPD, Hx Pneumonia, Hx Sleep Apnea Denies: Hx Tuberculosis Neurological Medical History: Reports: Hx Cerebrovascular Accident - Weakness Rt Leg, uses cane. Denies: Hx Seizures Endocrine Medical History: Reports: Hx Diabetes Mellitus Type 2, Hx Hypothyroidism Renal/ Medical History: Denies: Hx Peritoneal Dialysis Malignancy Medical History: Reports: Hx Breast Cancer GI Medical History: Reports: Hx Gastroesophageal Reflux Disease Musculoskeletal Medical History: Reports Hx Arthritis Psychiatric Medical History: Reports: Hx Bipolar Disorder, Hx Depression Past Surgical History: Reports: Hx Appendectomy, Hx Cardiac Catheterization - s tent x 1, Hx Cholecystectomy, Hx Coronary Stent, Hx Mastectomy - left side, pt states many years ago, Hx Thyroid Surgery - thyroid removal - Immunizations Hx Diphtheria, Pertussis, Tetanus Vaccination: Yes Hx Pneumococcal Vaccination: 11/29/16 Review of Systems - Review of Systems Constitutional: No symptoms reported EENT: No symptoms reported Cardiovascular: No symptoms reported Respiratory: See HPI, Cough Gastrointestinal: No symptoms reported Musculoskeletal: No symptoms reported Neurological/Psychological: See HPI, Numbness -: Yes All other systems reviewed and negative Physical Exam - Vital signs Vitals: Temp Pulse Resp BP Pulse Ox 98 F 73 20 143/100 H 96 11/18/18 11:21 11/18/18 11:21 11/18/18 11:21 11/18/18 11:21 11/18/18 11:21 - General General appearance: Appears well In distress: None - HEENT Pupils: PERRL Pharynx: Normal Neck: Normal - Respiratory Respiratory status: No respiratory distress Chest status: Nontender Breath sounds: Normal - Cardiovascular Rhythm: Regular Heart sounds: Normal auscultation Murmur: No - Abdominal Inspection: Normal Bowel sounds: Normal Tenderness: Nontender - Extremities General upper extremity: Normal inspection General lower extremity: Normal inspection - Neurological Cognition: Normal Orientation: AAOx4 Speech: Normal Motor strength normal: LUE, RUE, LLE, RLE Sensory: Altered light touch - R arm, 2-pt discrimination - R arm Course - Re-evaluation Re-evalutation: 11/18/18 13:35 Pt's exam is unchanged. I feel she should be admitted today for TIA/stroke in evolution. She says she has to go home and feed her cat and she has no one else to do this. I have warned her of possible complications if she leaves the hospital, but she is adament that she has to go and will return later today. She will sign out AMA. She was given ASA in the ED - Vital Signs Vital signs: Temp Pulse Resp BP Pulse Ox 98 F 73 20 143/100 H 96 11/18/18 11:21 11/18/18 11:21 11/18/18 11:11/18/18 11:21 11/18/18 11:21 - Laboratory Result Diagrams: 11/18/18 12:37 11/18/18 12:37 - Diagnostic Test Radiology reviewed: Reports reviewed - neg CT, CXR - EKG Interpretation by Me EKG shows normal: Sinus rhythm Rate: Normal Rhythm: NSR - nsr without acute change Discharge - Discharge Clinical Impression: TIA (transient ischemic attack) Condition: Stable Disposition: AGAINST MEDICAL ADVICE Additional Instructions: rest, continue current meds, return here [facility] for further evaluation Referrals: ROBIN DOMÍNGUEZ PA [Primary Care Provider] - Follow up as needed
[2018-11-18 12:47] LABS: ABSOLUTE BASOPHILS # (AUTO) 0.2 10^3/uL (0.0-0.2); ABSOLUTE EOSINOPHILS # (AUTO) 0.1 10^3/uL (0.0-0.6); ABSOLUTE LYMPHOCYTES (AUTO) 1.9 10^3/uL (0.5-4.7); ABSOLUTE MONOCYTES (AUTO) 0.3 10^3/uL (0.1-1.4); ABSOLUTE NEUT (AUTO) 4.8 10^3/uL (1.7-8.2); BASOPHILS % (AUTO) 2.3 % (0-2); EOSINOPHILS % (AUTO) 1.6 % (0-6); HEMOGLOBIN 13.4 g/dL (12.0-15.5); MEAN CORPUSCULAR HEMOGLOBIN 29.6 pg (27.0-33.4); MEAN CORPUSCULAR HGB CONC 34.3 g/dL (32.0-36.0); MEAN CORPUSCULAR VOLUME 87 fl (80-97); MONOCYTES % (AUTO) 4.5 % (3-13); PLATELET COUNT 530 10^3/uL (150-450); RED BLOOD COUNT 4.51 10^6/uL (3.72-5.28); RED CELL DISTRIBUTION WIDTH 13.1 % (11.5-14.0); SEGMENTED NEUTROPHILS % (AUTO) 65.6 % (42-78); TOTAL CELLS COUNTED % (AUTO) 100 %; WHITE BLOOD COUNT 7.3 10^3/uL (4.0-10.5)
[2018-11-18 12:54] LABS: INTERNATIONAL RATION (INR) 1.02
[2018-11-18 12:55] LABS: PARTIAL THROMBOPLASTIN TIME 32.1 SEC (23.5-35.8)
[2018-11-18 12:59] LABS: PROTHROMBIN TIME 13.4 SEC (11.4-15.4)
[2018-11-18 13:10] LABS: ALBUMIN 3.8 g/dL (3.5-5.0); ALKALINE PHOSPHATASE 115 U/L (38-126); ANION GAP 9 (5-19); ASPARTATE AMINO TRANSFERASE 24 U/L (14-36); BILIRUBIN,DIRECT 0.3 mg/dL (0.0-0.4); BILIRUBIN,TOTAL 0.4 mg/dL (0.2-1.3); BLOOD UREA NITROGEN 35 mg/dL (7-20); CALCIUM 9.2 mg/dL (8.4-10.2); CARBON DIOXIDE 26 mmol/L (22-30); CHLORIDE 100 mmol/L (98-107); CREATINE KINASE 49 U/L (30-135); GLUCOSE 94 mg/dL (75-110); POTASSIUM 4.4 mmol/L (3.6-5.0); TOTAL PROTEIN 6.6 g/dL (6.3-8.2)
[2018-11-18 13:21] LABS: TROPONIN I < 0.012 ng/mL
[2018-11-18 13:54] VITALS: BP 156/86
--- NOTE | 2018-11-18 15:07 | EKG REPORT ---
SEVERITY:- NORMAL ECG - SINUS RHYTHM : Confirmed by: Farhad Raza MD 18-Nov-2018 15:06:32
== END 2018-11-18 13:53 | disposition left against medical advice (07) ==
LOC: ER 11:19
DX: G45.9 Transient cerebral ischemic attack, unspecified (principal); R53.1 Weakness; R20.0 Anesthesia of skin; R05 Cough; R11.10 Vomiting, unspecified; F17.200 Nicotine dependence, unspecified, uncomplicated; I25.10 Atherosclerotic heart disease of native coronary artery without angina pectoris; I10 Essential (primary) hypertension; J44.9 Chronic obstructive pulmonary disease, unspecified; E11.9 Type 2 diabetes mellitus without complications; Z86.73 Personal history of transient ischemic attack (TIA), and cerebral infarction without residual deficits
CPT/HCPCS: 36415; 70450; 71045; 80053; 82550; 82553; 84484; 85025; 85610; 85730; 93005; 93010; 99284

== ENCOUNTER → 2018-11-24 | Outpatient (CLI) | payer BC, MEDICAID ==
[2018-11-24 12:20] LABS: ALBUMIN 3.6 g/dL (3.5-5.0); ANION GAP 9 (5-19); BLOOD UREA NITROGEN 27 mg/dL (7-20); CARBON DIOXIDE 26 mmol/L (22-30); CHLORIDE 98 mmol/L (98-107); GLUCOSE 101 mg/dL (75-110); PHOSPHORUS 5.4 mg/dL (2.5-4.5); POTASSIUM 4.7 mmol/L (3.6-5.0)
[2018-11-24 12:21] LABS: URINE CREATININE 31.9 mg/dL (15-278)
[2018-11-24 12:30] LABS: URINE PROTEIN 415.8 mg/dL (<12)
== END ==
LOC: OD 11:25
PROVIDERS: ATTEND Physician Assistant Medical
DX: I12.9 Hypertensive chronic kidney disease with stage 1 through stage 4 chronic kidney disease, or unspecified chronic kidney disease (principal); N18.3 Chronic kidney disease, stage 3 (moderate); E11.22 Type 2 diabetes mellitus with diabetic chronic kidney disease
CPT/HCPCS: 36415; 80069; 82570; 83970; 84156

== ENCOUNTER → 2019-01-24 | Outpatient (CLI) | payer BC, MEDICAID ==
[2019-01-24 11:46] LABS: ABSOLUTE BASOPHILS # (AUTO) 0.1 10^3/uL (0.0-0.2); ABSOLUTE EOSINOPHILS # (AUTO) 0.1 10^3/uL (0.0-0.6); ABSOLUTE MONOCYTES (AUTO) 0.4 10^3/uL (0.1-1.4); EOSINOPHILS % (AUTO) 1.2 % (0-6); HEMATOCRIT 37.1 % (36.0-47.0); HEMOGLOBIN 12.5 g/dL (12.0-15.5); LYMPHOCYTES % (AUTO) 26.1 % (13-45); MEAN CORPUSCULAR HGB CONC 33.8 g/dL (32.0-36.0); MEAN CORPUSCULAR VOLUME 89 fl (80-97); MONOCYTES % (AUTO) 5.8 % (3-13); PLATELET COUNT 530 10^3/uL (150-450); RED BLOOD COUNT 4.16 10^6/uL (3.72-5.28); RED CELL DISTRIBUTION WIDTH 13.6 % (11.5-14.0); SEGMENTED NEUTROPHILS % (AUTO) 65.9 % (42-78); TOTAL CELLS COUNTED % (AUTO) 100 %; WHITE BLOOD COUNT 7.6 10^3/uL (4.0-10.5)
[2019-01-24 11:55] LABS: APPEARANCE,URINE CLEAR; BILIRUBIN,URINE NEGATIVE (NEGATIVE); COLOR,URINE YELLOW; GLUCOSE, URINE 50 mg/dL (NEGATIVE); KETONES,URINE NEGATIVE (NEGATIVE); LEUKOCYTE ESTERASE,URINE NEGATIVE (NEGATIVE); NITRITE,URINE NEGATIVE (NEGATIVE); PROTEIN,URINE >=500 mg/dL (NEGATIVE); URINE SPECIFIC GRAVITY 1.007; UROBILINOGEN,URINE NEGATIVE mg/dL (<2.0)
[2019-01-24 12:09] LABS: ANION GAP 8 (5-19); BLOOD UREA NITROGEN 26 mg/dL (7-20); CALCIUM 9.2 mg/dL (8.4-10.2); CARBON DIOXIDE 28 mmol/L (22-30); CHLORIDE 98 mmol/L (98-107); GLUCOSE 86 mg/dL (75-110); PHOSPHORUS 5.5 mg/dL (2.5-4.5); POTASSIUM 4.9 mmol/L (3.6-5.0)
[2019-01-24 12:58] LABS: URINE CREATININE 27.3 mg/dL (15-278)
[2019-01-24 13:02] LABS: URINE PROTEIN 410.1 mg/dL (<12)
== END ==
LOC: OD 10:55
PROVIDERS: ATTEND Physician Assistant Medical
DX: E11.22 Type 2 diabetes mellitus with diabetic chronic kidney disease (principal); I12.9 Hypertensive chronic kidney disease with stage 1 through stage 4 chronic kidney disease, or unspecified chronic kidney disease; N18.3 Chronic kidney disease, stage 3 (moderate); N17.9 Acute kidney failure, unspecified; E87.1 Hypo-osmolality and hyponatremia
CPT/HCPCS: 36415; 80048; 81001; 82306; 82570; 83970; 84100; 84156; 85025

== ENCOUNTER 2019-02-10 10:12 | Observation (INO) | payer BC, MEDICAID ==
--- NOTE | 2019-02-10 11:18 | RADIOLOGY REPORT (SQ) ---
EXAM DESCRIPTION: CT HEAD WITHOUT COMPLETED DATE/TIME: 02/10/2019 11:09 am REASON FOR STUDY: headache, R sided weakness, dizziness COMPARISON: 11/18/2018. TECHNIQUE: Axial images acquired through the brain without intravenous contrast. Images reviewed wi th bone, brain and subdural windows. Additional sagittal and coronal reconstructions were generated. Images stored on PACS. All CT scanners at this facility use dose modulation, iterative reconstruction, and/or weight based d osing when appropriate to reduce radiation dose to as low as reasonably achievable (ALARA). [facility]: Dose Right [facility]: CareDose [facility]: Dose Right [facility]: Teradose 4D [facility]: Orbital Traction RADIATION DOSE: CT Rad equipment meets quality standard of care and radiation dose reduction techniq ues were employed. CTDIvol: 53.2 mGy. DLP: 1017 mGy-cm. mGy. LIMITATIONS: None. FINDINGS: VENTRICLES: Normal size and contour. CEREBRUM: No masses. No hemorrhage. No midline shift. No evidence for acute infarction. Normal gra y/white matter differentiation. No areas of low density in the white matter. CEREBELLUM: No masses. No hemorrhage. No alteration of density. No evidence for acute infarction. EXTRAAXIAL SPACES: No fluid collections. No masses. ORBITS AND GLOBE: No intra- or extraconal masses. Normal contour of globe without masses. CALVARIUM: No fracture. PARANASAL SINUSES: No fluid or mucosal thickening. SOFT TISSUES: Soft tissue swelling about the right orbit. OTHER: No other significant finding. IMPRESSION: No acute intracranial abnormality. EVIDENCE OF ACUTE STROKE: NO. COMMENT: Quality ID # [id number]: Final reports with documentation of one or more dose reduction techniques (e.g., Automated exposure control, adjustment of the mA and/or kV according to patient size, use of iterative reconstruction technique) TECHNICAL DOCUMENTATION: JOB ID: [id number] [employer]- All Rights Reserved Reading location - IP/workstation name: [email or web address]
[2019-02-10 11:41] LABS: INTERNATIONAL RATION (INR) 0.92; PROTHROMBIN TIME 12.4 SEC (11.4-15.4)
[2019-02-10 11:52] LABS: ABSOLUTE BASOPHILS # (AUTO) 0.1 10^3/uL (0.0-0.2); ABSOLUTE LYMPHOCYTES (AUTO) 1.9 10^3/uL (0.5-4.7); ABSOLUTE MONOCYTES (AUTO) 0.4 10^3/uL (0.1-1.4); ABSOLUTE NEUT (AUTO) 6.8 10^3/uL (1.7-8.2); BASOPHILS % (AUTO) 1.1 % (0-2); EOSINOPHILS % (AUTO) 0.4 % (0-6); HEMATOCRIT 33.6 % (36.0-47.0); HEMOGLOBIN 11.6 g/dL (12.0-15.5); MEAN CORPUSCULAR HEMOGLOBIN 30.6 pg (27.0-33.4); MEAN CORPUSCULAR HGB CONC 34.6 g/dL (32.0-36.0); MEAN CORPUSCULAR VOLUME 89 fl (80-97); MONOCYTES % (AUTO) 4.5 % (3-13); PLATELET COUNT 480 10^3/uL (150-450); RED BLOOD COUNT 3.79 10^6/uL (3.72-5.28); RED CELL DISTRIBUTION WIDTH 13.7 % (11.5-14.0); TOTAL CELLS COUNTED % (AUTO) 100 %; WHITE BLOOD COUNT 9.3 10^3/uL (4.0-10.5)
--- NOTE | 2019-02-10 11:54 | RADIOLOGY REPORT (SQ) ---
EXAM DESCRIPTION: CHEST SINGLE VIEW COMPLETED DATE/TIME: 02/10/2019 11:36 am REASON FOR STUDY: headache, R sided weakness, dizziness COMPARISON: 11/18/2018. NUMBER OF VIEWS: One view. TECHNIQUE: Single frontal radiographic view of the chest acquired. LIMITATIONS: None. FINDINGS: LUNGS AND PLEURA: Increased interstitial markings in the lung bases. Probable mild inters titial edema without significant pleural effusion or airspace disease. MEDIASTINUM AND HILAR STRUCTURES: No masses. Contour normal. HEART AND VASCULAR STRUCTURES: Heart size normal. BONES: Chronic left posterior 6th and 7th rib fractures. HARDWARE: None in the chest. OTHER: No other significant finding. IMPRESSION: Mild interstitial changes may reflect minimal edema. TECHNICAL DOCUMENTATION: JOB ID: [id number] [employer]- All Rights Reserved Reading location - IP/workstation name: [email or web address]
[2019-02-10 12:01] LABS: ALBUMIN 3.9 g/dL (3.5-5.0); ALKALINE PHOSPHATASE 134 U/L (38-126); ANION GAP 13 (5-19); ASPARTATE AMINO TRANSFERASE 24 U/L (14-36); BILIRUBIN,DIRECT 0.4 mg/dL (0.0-0.4); BILIRUBIN,TOTAL 0.4 mg/dL (0.2-1.3); BLOOD UREA NITROGEN 28 mg/dL (7-20); CALCIUM 9.1 mg/dL (8.4-10.2); CARBON DIOXIDE 27 mmol/L (22-30); CHLORIDE 95 mmol/L (98-107); CREATINE KINASE 49 U/L (30-135); GLUCOSE 76 mg/dL (75-110); POTASSIUM 4.3 mmol/L (3.6-5.0); TOTAL PROTEIN 6.9 g/dL (6.3-8.2)
[2019-02-10 12:13] LABS: CREATINE KINASE MB 2.05 ng/mL (<4.55); TROPONIN I 0.016 ng/mL
[2019-02-10] MEDS ORDERED: DIPHENHYDRAMINE HCL 50 MG/ML VIAL IV ONE (13:44)
[2019-02-10] MEDS ORDERED: PROCHLORPERAZINE EDISYLATE INJ 10 MG/2 ML VIAL IV ONE (13:45)
[2019-02-10] MEDS ORDERED: IPRATROPIUM/ALBUTEROL 0.5-2.5 MG/3 ML AMPUL NEB ONE ×2 (13:46→17:16)
[2019-02-10] MEDS ORDERED: NORMAL SALINE 1000 ML 500 ML IV ONE (13:46)
--- NOTE | 2019-02-10 14:02 | ER Document Report ---
Entered by EASTON SERRANO SCRIBE 02/10/19 [id number] Acting as scribe for:RISHABH POLANCO MD ED General - General Chief Complaint: Headache Stated Complaint: SWOLLEN RIGHT EYE/SICK Time Seen by Provider: 02/10/19 13:04 Primary Care Provider: SHARON RICK PA-C [Primary Care Provider] - Follow up as needed Mode of Arrival: Ambulatory Information source: Patient, [facility] Records Notes: This 63 year old female patient presents to the ED today with complaints of bilateral feet swelling, a headache, and right eyelid swelling. Patient reports that when she woke up at 4:00 AM, she had a headache. Patient notes that she has limited vision in her right eye due to the swelling. Patient states that she has had feet swelling for months and that her right leg is chronically weak due to a stroke. She uses a cane to walk. 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 She thinks it was due to weakness that is not present at this time. The patient is not a TPA candidate at this time, she has no new focal weakness, no speech or thought deficits. TRAVEL OUTSIDE OF THE [place] IN LAST 30 DAYS: No - Related Data Allergies/Adverse Reactions: codeine Allergy (Verified 02/10/19 10:42) Itching latex Allergy (Verified 02/10/19 10:42) Hives liothyronine [From Cytomel] Allergy (Verified 02/10/19 10:42) Shortness of Breath morphine [Morphine] Allergy (Verified 02/10/19 10:42) Itching nalbuphine [From Nubain] Allergy (Verified 02/10/19 10:42) Itching hydrocodone Adverse Reaction (Mild, Verified 02/10/19 10:42) Rash plastic tape Allergy (Uncoded 02/10/19 10:42) Itching Past Medical History - General Information source: Patient, [facility] Records - Social History Smoking Status: Current Every Day Smoker Cigarette use (# per day): Yes Chew tobacco use (# tins/day): No Frequency of alcohol use: None Drug Abuse: Marijuana Family History: CAD Patient has suicidal ideation: No Patient has homicidal ideation: No - Past Medical History Cardiac Medical History: Reports: Hx Coronary Artery Disease, Hx Hypercholesterolemia, Hx Hypertension, Hx Pulmonary Embolism Pulmonary Medical History: Reports: Hx Asthma, Hx Bronchitis, Hx COPD, Hx Pneumonia, Hx Sleep Apnea Neurological Medical History: Reports: Hx Cerebrovascular Accident - Weakness Rt Leg, uses cane Endocrine Medical History: Reports: Hx Diabetes Mellitus Type 2, Hx Hypothyroidism Malignancy Medical History: Reports: Hx Breast Cancer GI Medical History: Reports: Hx Gastroesophageal Reflux Disease Musculoskeletal Medical History: Reports Hx Arthritis Psychiatric Medical History: Reports: Hx Bipolar Disorder, Hx Depression Past Surgical History: Reports: Hx Appendectomy, Hx Cardiac Catheterization - stent x 1, Hx Cholecystectomy, Hx Coronary Stent, Hx Mastectomy - left side, pt states many years ago, Hx Thyroid Surgery - thyroid removal - Immunizations Hx Diphtheria, Pertussis, Tetanus Vaccination: Yes Hx Pneumococcal Vaccination: 11/29/16 Review of Systems - Review of Systems Constitutional: No symptoms reported EENT: See HPI, Other - right upper eyelid swelling Cardiovascular: No symptoms reported Respiratory: No symptoms reported Gastrointestinal: No symptoms reported Genitourinary: No symptoms reported Female Genitourinary: No symptoms reported Musculoskeletal: See HPI, Other - bilateral feet swelling, right leg weakness due to CVA, right hand weakness Skin: No symptoms reported Hematologic/Lymphatic: No symptoms reported Neurological/Psychological: No symptoms reported -: Yes All other systems reviewed and negative Physical Exam - Vital signs Vitals: Temp Pulse BP Pulse Ox 98.6 F 87 157/83 H 88 L 02/10/19 10:37 02/10/19 10:37 02/10/19 10:37 02/10/19 10:37 Interpretation: Normal - General General appearance: Alert In distress: None - HEENT Head: Normocephalic, Atraumatic, Tenderness - The temporal scalp muscles are tender to palpate., Other - no facial asymmetry Eyes: Other - The lateral right upper eyelid is quite edematous, some erythema externally, quite erythematous on the palpebral side. The conjunctiva has a mucousy discharge but is not particularly injected. The swollen upper eyelid does not have any focal tenderness. When the lid is inverted, it does have the appearance of a stye in the lateral aspect, but again this area is not tender at all. Pupils: PERRL Neck: Supple - Posterior cervical muscles are very tender to palpate. - Respiratory Respiratory status: No respiratory distress Chest status: Nontender Breath sounds: Normal Chest palpation: Normal - Cardiovascular Rhythm: Regular Heart sounds: Normal auscultation Murmur: No - Abdominal Inspection: Normal Distension: No distension Bowel sounds: Normal Tenderness: Nontender Organomegaly: No organomegaly - Back Back: Normal, Nontender - Extremities General upper extremity: Normal inspection General lower extremity: Edema - soft pitting edema of LE Hand: Other - normal lacemaker and coordination in both hands Foot: Edema - dorsal right foot is edematous - Neurological Neuro grossly intact: Yes Cranial nerves: Normal. No: Facial palsy Motor strength normal: LUE, RUE, LLE. No: RLE - The patient's right lower extremity is slightly weaker when she picks the foot up to hold it, this is a chronic finding due to a prior stroke. Additional motor exam normals: Equal lacemaker Babinski reflex: Normal (flexor plantar) Sensory: Altered light touch - Patient does have some decreased light touch of the right lower extremity, this is a chronic finding following her stroke in the past. Biceps - Reflex grade: 1 = Hypoactive Knee - Reflex grade: 1 = Hypoactive Ankle - Reflex grade: 0 = Absent - Psychological Associated symptoms: Normal affect, Normal mood - Skin Skin Temperature: Warm Skin Moisture: Dry Skin Color: Normal Course - Re-evaluation Re-evalutation: 02/10/19 15:07 The patient was given a DuoNeb breathing treatment for her COPD and wheezing, she states that her breathing felt better. She was given Compazine and Benadryl for her tension headache, it did make her a little too drowsy for her level of COPD, so she was placed on 2 L nasal cannula. That has maintained her O2 sats in the 92% for the most part, occasionally she drops down to 86%, can be stimulated and wakes up and breathe deeply. When she does breathe there is a little bit of a snoring component. Will place her on BiPAP for safety at this time and closely monitor. 02/10/19 16:44 The patient is doing well on BiPAP. I woke her up to speak with her. She is able to become fully wide-awake. States her headache is gone and she is feeling much better. I had her take several very deep breaths and cough, her pulse oximetry reading went up to 100%. It has been 2 hours since she received the Benadryl and Compazine. The patient does use CPAP at home. We will stop the BiPAP for now and observe the patient to be sure that she does not desat and does not fall asleep. If we are able to discharge home, will recommend that she uses her CPAP when she gets home in case she is still a little drowsy. She does admit that she does not use her CPAP all the time when she sleeps like she supposed to. 02/10/19 17:30 Patient is now almost 4 hours out from receiving medications, still remains quite drowsy but is arousable. Oxygen saturations dropped to 86% on 1 to 2 L nasal cannula unless she is stimulated to stay awake. She was placed back on the BiPAP, and an ABG will be obtained. She also received a DuoNeb and Solu- Medrol. The hospitalist has agreed to bring her in the hospital to manage her COPD and hypoxia. - Vital Signs Vital signs: Temp Pulse Resp BP Pulse Ox 97.8 F 84 21 H 183/73 H 87 L 02/10/19 15:06 02/10/19 11:15 02/10/19 17:01 02/10/19 17:00 02/10/19 17:01 - Laboratory Result Diagrams: 02/10/19 11:24 02/10/19 11:24 Laboratory results interpreted by me: 02/10/19 02/10/19 11:24 11:24 Hgb 11.6 L Hct 33.6 L Plt Count 480 H Sodium 134.8 L Chloride 95 L BUN 28 H Creatinine 2.57 H Est GFR ( Amer) 23 L Est GFR (MDRD) Non-Af 19 L Alkaline Phosphatase 134 H - Diagnostic Test Radiology reviewed: Image reviewed, Reports reviewed - Chest x-ray showed mild interstitial changes that may reflect minimal edema. CT scan of the head shows no acute intracranial abnormality. - EKG Interpretation by Me EKG shows normal: Sinus rhythm, [place], Intervals, QRS Complexes, ST-T Waves Rate: Normal - 80 Rhythm: NSR - Consults Filippo Serrano NP Time consulted: 17:25 Consulted provider: will come to ER Discharge - Discharge Clinical Impression: Edema of right upper eyelid, Chronic renal insufficiency, stage III (moderate), Hordeolum internum left upper eyelid Tension type headache Qualifiers: Headache chronicity pattern: acute headache Intractability: not intractable Qualified Code(s): G44.209 - Tension-type headache, unspecified, not intractable COPD (chronic obstructive pulmonary disease) Qualifiers: COPD type: unspecified COPD Qualified Code(s): J44.9 - Chronic obstructive pulmonary disease, unspecified High blood pressure Qualifiers: Hypertension type: essential hypertension Qualified Code(s): I10 - Essential (primary) hypertension Condition: Good Disposition: ADMITTED INPATIENT Admitting Provider: Anoop (Hospitalist) Unit Admitted: I[facility]U Referrals: SHARON RICK PA-C [Primary Care Provider] - Follow up as needed Scribe Attestation: 02/10/19 15:09 I personally performed the services described in the documentation, reviewed and edited the documentation which was dictated to the scribe in my presence, and it accurately records my words and actions. I personally performed the services described in the documentation, reviewed and edited the documentation which was dictated to the scribe in my presence, and it accurately records my words and actions.
[2019-02-10] MEDS ORDERED: BACITRACIN OPH OINT 3.5 GM OD SCH (14:45)
[2019-02-10] MEDS ORDERED: BACITRACIN OPH OINT 3.5 GM OD PRN (15:38)
[2019-02-10] MEDS ORDERED: METHYLPREDNISOLONE INJ 125 MG/2 ML SDV IV ONE (17:16)
[2019-02-10] MEDS ORDERED: ACETAMINOPHEN 325 MG TABLET PO PRN (17:39)
[2019-02-10] MEDS ORDERED: NORMAL SALINE 1000 ML 1,000 ML IV PRN (17:39)
[2019-02-10] MEDS ORDERED: ONDANSETRON HCL INJ/PF 4 MG/2 ML SDV IV PRN (17:39)
--- NOTE | 2019-02-10 17:48 | PDOC H&P ---
History of Present Illness Admission Date/PCP: 02/10/2019 SHARON RICK PA-C Patient complains of: Unable to assess secondary to sedation History of Present Illness: CRISTIANE LOVE is a 63 year old female who presented to the ER with swollen right eye. Patient also complained of headache for which she was given IV Benadryl and Reglan. Patient has a history of 2 packs a day smoker and has been on BiPAP for 3 hours now and unable to wake up secondary to Benadryl. Patient was will be sent home however at this point she is unable to secondary to her sedation. She is being treated with BiPAP and apparently Benadryl is an aggravating factor. Past Medical History Cardiac Medical History: Reports: Coronary Artery Disease, Hyperlipidema, Hypertension, Pulmonary Embolism Denies: Myocardial Infarction Pulmonary Medical History: Reports: Asthma, Bronchitis, Chronic Obstructive Pulmonary Disease (COPD), Pneumonia, Sleep Apnea Denies: Tuberculosis Neurological Medical History: Denies: Seizures Endocrine Medical History: Reports: Diabetes Mellitus Type 2, Hypothyroidism Malignancy Medical History: Reports: Breast Cancer GI Medical History: Reports: Gastroesophageal Reflux Disease Musculoskeltal Medical History: Reports: Arthritis Psychiatric Medical History: Reports: Bipolar Disorder, Depression Hematology: Denies: Anemia Past Surgical History Past Surgical History: Reports: Appendectomy, Cardiac Catheterization - stent x 1, Cholecystectomy, Coronary Stent, Mastectomy - left side, pt states many years ago Social History Information Source: Patient Lives with: Alone Smoking Status: Current Every Day Smoker Electronic Cigarette use?: No Frequency of Alcohol Use: Rare Hx Recreational Drug Use: Yes Drugs: Heroin, Marijuana Hx Prescription Drug Abuse: No - Advance Directive Resuscitation Status: Full Code Family History Family History: CAD Parental Family History Reviewed: Yes Children Family History Reviewed: Yes Sibling(s) Family History Reviewed.: Yes Medication/Allergy Home Medications: Albuterol Sulfate [Proair HFA Inhalation Aerosol 8.5 gm MDI] 2 puff IH QID 02/11/18 Amlodipine Besylate [Norvasc 5 mg Tablet] 5 mg PO DAILY 02/11/18 Aripiprazole [Abilify 30 mg Tablet] 30 mg PO DAILY 02/11/18 Atorvastatin Calcium [Lipitor 10 mg Tablet] 10 mg PO QHS 02/11/18 Cetirizine HCl [Zyrtec 10 mg Tablet] 10 mg PO DAILY 02/11/18 Clonidine HCl [Catapres 0.1 mg Tablet] 0.1 mg PO QHS 02/11/18 Clopidogrel Bisulfate [Plavix 75 mg Tablet] 75 mg PO DAILY 02/11/18 Ezetimibe [Zetia 10 mg Tablet] 10 mg PO DAILY 02/11/18 Fenofibrate 160 mg PO DAILY 02/11/18 Fluticasone/Salmeterol [Advair 250-50 Diskus 14 Dose/Diskus] 1 puff IH Q12 02/11/18 Hydroxyzine HCl [Atarax 10 mg Tablet] 10 mg PO BIDP PRN 02/11/18 Levothyroxine Sodium [Synthroid] 175 mcg PO Q6AM 02/11/18 Lisinopril [Zestril] 10 mg PO QHS 02/11/18 Metoprolol Tartrate [Lopressor 25 mg Tablet] 25 mg PO Q12 02/11/18 Mirtazapine [Remeron] 30 mg PO QHS 02/11/18 Montelukast Sodium [Singulair 10 mg Tablet] 10 mg PO DAILY 02/11/18 Venlafaxine HCl [Venlafaxine HCl ER] 225 mg PO DAILY 02/11/18 Ondansetron [Zofran Odt 4 mg Tablet] 1 tab PO Q4H PRN #15 tab.rapdis 02/14/18 Allergies/Adverse Reactions: codeine Allergy (Verified 02/10/19 10:42) Itching latex Allergy (Verified 02/10/19 10:42) Hives liothyronine [From Cytomel] Allergy (Verified 02/10/19 10:42) Shortness of Breath morphine [Morphine] Allergy (Verified 02/10/19 10:42) Itching nalbuphine [From Nubain] Allergy (Verified 02/10/19 10:42) Itching hydrocodone Adverse Reaction (Mild, Verified 02/10/19 10:42) Rash plastic tape Allergy (Uncoded 02/10/19 10:42) Itching Review of Systems ROS unobtainable: Due to mental status Physical Exam Vital Signs: Temp Pulse Resp BP Pulse Ox 97.8 F 84 21 H 183/73 H 87 L 02/10/19 15:06 02/10/19 11:15 02/10/19 17:01 02/10/19 17:00 02/10/19 17:01 Intake & Output 02/09/19 02/10/19 02/11/19 06:59 06:59 06:59 Intake Total 500 Balance 500 Weight 67.132 kg General appearance: PRESENT: no acute distress, well-developed, well-nourished Head exam: PRESENT: atraumatic, normocephalic Eye exam: PRESENT: conjunctiva pink, EOMI, PERRLA, other - Stye of the right. ABSENT: scleral icterus Ear exam: PRESENT: normal external ear exam Mouth exam: PRESENT: moist, tongue midline Neck exam: ABSENT: carotid bruit, JVD, lymphadenopathy, thyromegaly Respiratory exam: PRESENT: clear to auscultation nuvia, symmetrical, unlabored, other - BiPAP. ABSENT: rales, rhonchi, wheezes Cardiovascular exam: PRESENT: RRR. ABSENT: diastolic murmur, rubs, systolic murmur Pulses: PRESENT: normal dorsalis pedis pul Vascular exam: PRESENT: normal capillary refill GI/Abdominal exam: PRESENT: normal bowel sounds, soft. ABSENT: distended, guarding, mass, organolmegaly, rebound, tenderness Rectal exam: PRESENT: deferred Extremities exam: PRESENT: full ROM. ABSENT: calf tenderness, clubbing, pedal edema Neurological exam: PRESENT: other - Able to assess secondary to mental status. ABSENT: motor sensory deficit Psychiatric exam: PRESENT: other - Unable to assess secondary to mental status. ABSENT: homicidal ideation, suicidal ideation Skin exam: PRESENT: dry, intact, warm. ABSENT: cyanosis, rash Results Laboratory Results: 02/10/19 11:24 02/10/19 11:24 02/10/19 02/10/19 11:24 11:24 WBC 9.3 RBC 3.79 Hgb 11.6 L Hct 33.6 L MCV 89 MCH 30.6 MCHC 34.6 RDW 13.7 Plt Count 480 H Seg Neutrophils % 74.0 Sodium 134.8 L Potassium 4.3 Chloride 95 L Carbon Dioxide 27 Anion Gap 13 BUN 28 H Creatinine 2.57 H Est GFR ( Amer) 23 L Glucose 76 Calcium 9.1 Total Bilirubin 0.4 AST 24 Alkaline Phosphatase 134 H Total Protein 6.9 Albumin 3.9 02/10/19 02/10/19 11:24 11:24 Creatine Kinase 49 CK-MB (CK-2) 2.05 Troponin I 0.016 Impressions: Chest X-Ray 02/10/19 10:44 IMPRESSION: Mild interstitial changes may reflect minimal edema. Head CT 02/10/19 10:44 IMPRESSION: No acute intracranial abnormality. EVIDENCE OF ACUTE STROKE: NO. Assessment and Plan - Diagnosis (1) Lethargy Is this a current diagnosis for this admission?: Yes Plan: 02/10/2019-patient with a history of COPD 2 pack-a-day smoker. Patient presented with a headache and swollen right eye. Initially thought patient was having a stroke that proved negative. Patient was given IV Benadryl and Reglan for migraine. At this time patient unable to wake up secondary to Benadryl very sleepy. She is on BiPAP which we will continue overnight I anticipate discharge home in the morning when she is awake. (2) Chronic renal insufficiency, stage III (moderate) Is this a current diagnosis for this admission?: Yes Plan: 02/10/2019-stable repeat BMP in a.m. (3) Edema of right upper eyelid Is this a current diagnosis for this admission?: Yes Plan: 02/10/2019-stye. Warm compresses - Time Time Spent with patient: 35 or more minutes
[2019-02-10 18:25] LABS: ARTERIAL BLOOD BASE EXCESS -2.5 mmol/L; ARTERIAL BLOOD H2CO3 1.32 mmol/L (1.05-1.35); ARTERIAL BLOOD HCO3 23.2 mmol/L (20-24); ARTERIAL BLOOD PCO2 43.7 mmHg (35-45); ARTERIAL BLOOD PH 7.34 (7.35-7.45); ARTERIAL BLOOD PO2 73.5 mmHg (80-100); ARTERIAL BLOOD TOTAL CO2 24.5 mmol/L (21-25)
[2019-02-10 18:27] LABS: ARTERIAL BLOOD FIO2 40%
--- NOTE | 2019-02-10 21:51 | EKG REPORT ---
SEVERITY:- NORMAL ECG - SINUS RHYTHM : Confirmed by: Farhad Raza MD 10-Feb-2019 21:50:47
[2019-02-10] MEDS ORDERED: LISINOPRIL 10 MG TABLET PO ONE (22:30)
[2019-02-10] MEDS ORDERED: CLONIDINE HCL 0.1 MG TABLET PO ONE (22:30)
[2019-02-10] MEDS ORDERED: METOPROLOL TARTRATE 25 MG TABLET PO ONE (22:30)
[2019-02-10] MEDS: HEPARIN SOD (PORCINE) 5,000 UNIT/ML 1 ML VIAL SUBCUT SCH (22:59)
[2019-02-10] MEDS ORDERED: AMLODIPINE BESYLATE 10 MG TABLET PO ONE (23:00)
[2019-02-11] MEDS ORDERED: METOPROLOL TARTRATE PF/INJ 5 MG/5 ML SDV IV PRN (01:55)
[2019-02-11] MEDS ORDERED: MAG HYDROX/AL HYDROX/SIMETH SUSP 30 ML UDCUP PO PRN (01:55)
[2019-02-11] MEDS ORDERED: HYDRALAZINE HCL INJ/PF 20 MG/1 ML SDV IV PRN (01:55)
[2019-02-11] MEDS ORDERED: GLUCAGON,HUMAN RECOMB 1 MG INJ IM PRN (02:00)
[2019-02-11] MEDS ORDERED: DEXTROSE 50%-WATER SYRINGE 25 GM/50 ML DOSE IV PRN (02:00)
[2019-02-11] MEDS ORDERED: DEXTROSE 40% GEL 15 GM TUBE X 2 PO PRN (02:00)
[2019-02-11] MEDS ORDERED: DEXTROSE 40% GEL 15 GM TUBE PO PRN (02:00)
[2019-02-11] MEDS ORDERED: DEXTROSE 50%-WATER SYRINGE 12.5 GM/25 ML DOSE IV PRN (02:00)
[2019-02-11 05:58] LABS: HEMATOCRIT 33.5 % (36.0-47.0); HEMOGLOBIN 11.3 g/dL (12.0-15.5); MEAN CORPUSCULAR HEMOGLOBIN 29.8 pg (27.0-33.4); MEAN CORPUSCULAR HGB CONC 33.6 g/dL (32.0-36.0); MEAN CORPUSCULAR VOLUME 89 fl (80-97); PLATELET COUNT 493 10^3/uL (150-450); RED BLOOD COUNT 3.78 10^6/uL (3.72-5.28); RED CELL DISTRIBUTION WIDTH 13.7 % (11.5-14.0); WHITE BLOOD COUNT 8.2 10^3/uL (4.0-10.5)
[2019-02-11 06:24] LABS: ANION GAP 10 (5-19); BLOOD UREA NITROGEN 30 mg/dL (7-20); CARBON DIOXIDE 24 mmol/L (22-30); CHLORIDE 101 mmol/L (98-107); GLUCOSE 113 mg/dL (75-110); PHOSPHORUS 6.6 mg/dL (2.5-4.5); POTASSIUM 4.7 mmol/L (3.6-5.0)
[2019-02-11] MEDS: HEPARIN SOD (PORCINE) 5,000 UNIT/ML 1 ML VIAL SUBCUT SCH (06:40)
[2019-02-11] MEDS ORDERED: INSULIN REG, HUMAN 100 UNIT/ML 3 ML VIAL (PYX) SUBCUT SCH (08:00)
--- NOTE | 2019-02-11 08:22 | PDOC DISCHARGE SUMMARY ---
Impression - Admit/DC Date/PCP Admission Date/Primary Care Provider: 02/10/19 17:41 SHARON RICK PA-C Discharge Date: 02/11/19 - Discharge Diagnosis (1) Lethargy Is this a current diagnosis for this admission?: Yes (2) Chronic renal insufficiency, stage III (moderate) Is this a current diagnosis for this admission?: Yes (3) Edema of right upper eyelid Is this a current diagnosis for this admission?: Yes (4) COPD (chronic obstructive pulmonary disease) Is this a current diagnosis for this admission?: Yes - Additional Information Resuscitation Status: Full Code Discharge Diet: As Tolerated Discharge Activity: Activity As Tolerated Referrals: SHARON RICK PA-C [Primary Care Provider] - Follow up as needed Home Medications: Buspirone HCl [Buspar 5 mg Tablet] 7.5 mg PO BID 02/10/19 Calcitriol [Rocaltrol] 0.25 mcg PO MOWEFR 02/10/19 Cetirizine HCl [Zyrtec] 10 mg PO DAILY 02/10/19 Clopidogrel Bisulfate [Plavix 75 mg Tablet] 75 mg PO DAILY 02/10/19 Fenofibrate Nanocrystallized [Fenofibrate] 160 mg PO DAILY 02/10/19 Fluticasone/Umeclidin/Vilanter [Trelegy 100-62.5-25 Mcg Ellipta 14 Dose/Dpi] 1 puff IH DAILY 02/10/19 Gabapentin [Neurontin 300 mg Capsule] 300 mg PO QHS 02/10/19 Hydroxyzine HCl [Atarax 10 mg Tablet] 10 mg PO DAILY 02/10/19 Liothyronine Sodium [Cytomel 25 Mcg Tablet] 25 mcg PO DAILY 02/10/19 Omeprazole 40 mg PO DAILY 02/10/19 Sertraline HCl [Zoloft] 25 mg PO DAILY 02/10/19 Thyroid 60 mg PO Q12 02/10/19 History of Present Illiness History of Present Illness: CRISTIANE LOVE is a 63 year old female who presented to the ER with swollen right eye. Patient also complained of headache for which she was given IV Benadryl and Reglan. Patient has a history of 2 packs a day smoker and has been on BiPAP for 3 hours now and unable to wake up secondary to Benadryl. Patient was will be sent home however at this point she is unable to secondary to her sedation. She is being treated with BiPAP and apparently Benadryl is an aggravating factor. Hospital Course Hospital Course: Patient was admitted overnight secondary to lethargy after medication menstruation for migraine in the ER. Patient has awoke well but given her history of COPD she is requiring oxygen. Patient desatted to 83% on room air. Will send patient home on O2 2 L/min nasal cannula I will have her follow-up with her primary care practitioner within 1 week. I will leave it up to their expertise to wean patient off oxygen as needed. Physical Exam Vital Signs: Temp Pulse Resp BP Pulse Ox 97.9 F 104 H 27 H 153/76 H 98 02/11/19 07:24 02/11/19 07:24 02/11/19 07:24 02/11/19 07:24 02/11/19 07:24 Intake & Output 02/10/19 02/11/19 02/12/19 06:59 06:59 06:59 Intake Total 650 Balance 650 Weight 73.4 kg General appearance: PRESENT: no acute distress, well-developed, well-nourished Head exam: PRESENT: atraumatic, normocephalic Eye exam: PRESENT: conjunctiva pink, EOMI, PERRLA. ABSENT: scleral icterus Ear exam: PRESENT: normal external ear exam Mouth exam: PRESENT: moist, tongue midline Neck exam: ABSENT: carotid bruit, JVD, lymphadenopathy, thyromegaly Respiratory exam: PRESENT: clear to auscultation nuvia. ABSENT: rales, rhonchi, wheezes Cardiovascular exam: PRESENT: RRR. ABSENT: diastolic murmur, rubs, systolic murmur Pulses: PRESENT: normal dorsalis pedis pul Vascular exam: PRESENT: normal capillary refill GI/Abdominal exam: PRESENT: normal bowel sounds, soft. ABSENT: distended, guarding, mass, organolmegaly, rebound, tenderness Rectal exam: PRESENT: deferred Extremities exam: PRESENT: full ROM. ABSENT: calf tenderness, clubbing, pedal edema Neurological exam: PRESENT: alert, awake, oriented to person, oriented to place, oriented to time, oriented to situation, CN II-XII grossly intact. ABSENT: motor sensory deficit Psychiatric exam: PRESENT: appropriate affect, normal mood. ABSENT: homicidal ideation, suicidal ideation Skin exam: PRESENT: dry, intact, warm, other - Left mastectomy. ABSENT: cyanosis, rash Results Laboratory Results: WBC 8.2 10^3/uL (4.0-10.5) 02/11/19 05:28 RBC 3.78 10^6/uL (3.72-5.28) 02/11/19 05:28 Hgb 11.3 g/dL (12.0-15.5) L 02/11/19 05:28 Hct 33.5 % (36.0-47.0) L 02/11/19 05:28 MCV 89 fl (80-97) 02/11/19 05:28 MCH 29.8 pg (27.0-33.4) 02/11/19 05:28 MCHC 33.6 g/dL (32.0-36.0) 02/11/19 05:28 RDW 13.7 % (11.5-14.0) 02/11/19 05:28 Plt Count 493 10^3/uL (150-450) H 02/11/19 05:28 Lymph % (Auto) 20.0 % (13-45) 02/10/19 11:24 [place] % (Auto) 4.5 % (3-13) 02/10/19 11:24 Eos % (Auto) 0.4 % (0-6) 02/10/19 11:24 Baso % (Auto) 1.1 % (0-2) 02/10/19 11:24 Absolute Neuts (auto) 6.8 10^3/uL (1.7-8.2) 02/10/19 11:24 Absolute Lymphs (auto) 1.9 10^3/uL (0.5-4.7) 02/10/19 11:24 Absolute Monos (auto) 0.4 10^3/uL (0.1-1.4) 02/10/19 11:24 Absolute Eos (auto) 0.0 10^3/uL (0.0-0.6) 02/10/19 11:24 Absolute Basos (auto) 0.1 10^3/uL (0.0-0.2) 02/10/19 11:24 Seg Neutrophils % 74.0 % (42-78) 02/10/19 11:24 PT 12.4 SEC (11.4-15.4) 02/10/19 11:24 INR 0.92 02/10/19 11:24 APTT 33.0 SEC (23.5-35.8) 02/10/19 11:24 Carbonic Acid 1.32 mmol/L (1.05-1.35) 02/10/19 18:01 HCO3/H2CO3 Ratio 17:1 02/10/19 18:01 ABG pH 7.34 (7.35-7.45) L 02/10/19 18:01 ABG pCO2 43.7 mmHg (35-45) 02/10/19 18:01 ABG pO2 73.5 mmHg (80-100) L 02/10/19 18:01 ABG HCO3 23.2 mmol/L (20-24) 02/10/19 18:01 ABG Total CO2 24.5 mmol/L (21-25) 02/10/19 18:01 ABG O2 Saturation 94.0 % (94-98) 02/10/19 18:01 ABG Base Excess -2.5 mmol/L 02/10/19 18:01 FiO2 40% 02/10/19 18:01 Sodium 135.3 mmol/L (137-145) L 02/11/19 05:28 Potassium 4.7 mmol/L (3.6-5.0) 02/11/19 05:28 Chloride 101 mmol/L (98-107) 02/11/19 05:28 Carbon Dioxide 24 mmol/L (22-30) 02/11/19 05:28 Anion Gap 10 (5-19) 02/11/19 05:28 BUN 30 mg/dL (7-20) H 02/11/19 05:28 Creatinine 2.53 mg/dL (0.52-1.25) H 02/11/19 05:28 Est GFR ( Amer) 23 (>60) L 02/11/19 05:28 Est GFR (MDRD) Non-Af 19 (>60) L 02/11/19 05:28 Glucose 113 mg/dL (75-110) H 02/11/19 05:28 POC Glucose 102 mg/dL (70-110) 02/11/19 07:26 Calcium 9.0 mg/dL (8.4-10.2) 02/11/19 05:28 Phosphorus 6.6 mg/dL (2.5-4.5) H 02/11/19 05:28 Magnesium 1.8 mg/dL (1.6-2.3) 02/11/19 05:28 Total Bilirubin 0.4 mg/dL (0.2-1.3) 02/10/19 11:24 Direct Bilirubin 0.4 mg/dL (0.0-0.4) 02/10/19 11:24 Neonat Total Bilirubin Not Reportable 02/10/19 11:24 Neonat Direct Bilirubin Not Reportable 02/10/19 11:24 Neonat Indirect Bili Not Reportable 02/10/19 11:24 AST 24 U/L (14-36) 02/10/19 11:24 ALT 17 U/L (<35) 02/10/19 11:24 Alkaline Phosphatase 134 U/L (38-126) H 02/10/19 11:24 Creatine Kinase 49 U/L (30-135) 02/10/19 11:24 CK-MB (CK-2) 2.05 ng/mL (<4.55) 02/10/19 11:24 Troponin I 0.016 ng/mL 02/10/19 11:24 Total Protein 6.9 g/dL (6.3-8.2) 02/10/19 11:24 Albumin 3.9 g/dL (3.5-5.0) 02/10/19 11:24 02/10/19 11:24 CK-MB (CK-2) 2.05 Troponin I 0.016 Impressions: Chest X-Ray 02/10/19 10:44 IMPRESSION: Mild interstitial changes may reflect minimal edema. Head CT 02/10/19 10:44 IMPRESSION: No acute intracranial abnormality. EVIDENCE OF ACUTE STROKE: NO. Plan Time Spent: Greater than 30 Minutes Stroke Is this a Stroke Patient?: No Acute Heart Failure - Is this a Heart Failure Patient?: No
[2019-02-11] MEDS ORDERED: LISINOPRIL 10 MG TABLET PO SCH (10:00)
[2019-02-11] MEDS ORDERED: AMLODIPINE BESYLATE 10 MG TABLET PO SCH (10:00)
[2019-02-11] MEDS ORDERED: CLONIDINE HCL 0.1 MG TABLET PO SCH (10:00)
[2019-02-11] MEDS ORDERED: METOPROLOL TARTRATE 25 MG TABLET PO SCH (10:00)
[2019-02-11 12:09] VITALS: BP 138/66
[2019-02-11] MEDS ORDERED: ALBUTEROL SULFATE HFA (90 MCG/PUFF) 200 PUFF/8.5 GM MDI IH SCH (18:00)
[2019-02-11] MEDS ORDERED: MONTELUKAST SODIUM 10 MG TABLET PO SCH (22:00)
== END 2019-02-11 14:42 | disposition home health service (06) ==
LOC: ER 10:12 → INTOOBSV 17:41 → EH 17:41 → 3S 18:48
PROVIDERS: ADMIT Hospitalist; ATTEND Hospitalist
DX: R53.83 Other fatigue (principal); T45.0X5A Adverse effect of antiallergic and antiemetic drugs, initial encounter; Y92.239 Unspecified place in hospital as the place of occurrence of the external cause; J44.9 Chronic obstructive pulmonary disease, unspecified; N18.3 Chronic kidney disease, stage 3 (moderate); E11.22 Type 2 diabetes mellitus with diabetic chronic kidney disease; I12.9 Hypertensive chronic kidney disease with stage 1 through stage 4 chronic kidney disease, or unspecified chronic kidney disease; H02.841 Edema of right upper eyelid; I25.10 Atherosclerotic heart disease of native coronary artery without angina pectoris; G43.909 Migraine, unspecified, not intractable, without status migrainosus; F17.210 Nicotine dependence, cigarettes, uncomplicated; E78.5 Hyperlipidemia, unspecified; E03.9 Hypothyroidism, unspecified; I69.341 Monoplegia of lower limb following cerebral infarction affecting right dominant side; F12.10 Cannabis abuse, uncomplicated; H00.024 Hordeolum internum left upper eyelid; G47.30 Sleep apnea, unspecified; Z79.899 Other long term (current) drug therapy; Z79.02 Long term (current) use of antithrombotics/antiplatelets; Z90.12 Acquired absence of left breast and nipple; Z85.3 Personal history of malignant neoplasm of breast; Z90.49 Acquired absence of other specified parts of digestive tract; Z95.5 Presence of coronary angioplasty implant and graft; Z82.49 Family history of ischemic heart disease and other diseases of the circulatory system; Z79.51 Long term (current) use of inhaled steroids
CPT/HCPCS: 93005; 94640 ×2; 99285; 96361; 96374; 96375; 36415 ×2; 82553; 82962 ×2; 82803; 82550; 83735; 84100; 85025; 85027; 85610; 85730; 80048; 80053; 84484; 71045; 70450; 93010; 94660 ×2; G0378 ×2; J1644 ×2; J1200; J3490 ×3; J2930; J0780; J7030; J7620

== ENCOUNTER → 2019-03-22 | Outpatient (CLI) | payer BC, MEDICAID ==
[2019-03-22 15:06] LABS: ABSOLUTE BASOPHILS # (AUTO) 0.1 10^3/uL (0.0-0.2); ABSOLUTE EOSINOPHILS # (AUTO) 0.1 10^3/uL (0.0-0.6); ABSOLUTE LYMPHOCYTES (AUTO) 1.5 10^3/uL (0.5-4.7); ABSOLUTE MONOCYTES (AUTO) 0.5 10^3/uL (0.1-1.4); ABSOLUTE NEUT (AUTO) 6.3 10^3/uL (1.7-8.2); BASOPHILS % (AUTO) 1.3 % (0-2); EOSINOPHILS % (AUTO) 1.2 % (0-6); HEMATOCRIT 27.3 % (36.0-47.0); HEMOGLOBIN 9.4 g/dL (12.0-15.5); LYMPHOCYTES % (AUTO) 17.5 % (13-45); MEAN CORPUSCULAR HEMOGLOBIN 30.4 pg (27.0-33.4); MEAN CORPUSCULAR HGB CONC 34.4 g/dL (32.0-36.0); MEAN CORPUSCULAR VOLUME 88 fl (80-97); MONOCYTES % (AUTO) 6.1 % (3-13); PLATELET COUNT 421 10^3/uL (150-450); RED BLOOD COUNT 3.09 10^6/uL (3.72-5.28); RED CELL DISTRIBUTION WIDTH 15.1 % (11.5-14.0); SEGMENTED NEUTROPHILS % (AUTO) 73.9 % (42-78); TOTAL CELLS COUNTED % (AUTO) 100 %; WHITE BLOOD COUNT 8.6 10^3/uL (4.0-10.5)
[2019-03-22 15:27] LABS: ALBUMIN 3.6 g/dL (3.5-5.0); ANION GAP 12 (5-19); BLOOD UREA NITROGEN 40 mg/dL (7-20); CARBON DIOXIDE 24 mmol/L (22-30); CHLORIDE 101 mmol/L (98-107); GLUCOSE 104 mg/dL (75-110); PHOSPHORUS 6.7 mg/dL (2.5-4.5); POTASSIUM 4.2 mmol/L (3.6-5.0)
[2019-03-22 15:28] LABS: APPEARANCE,URINE SLIGHTLY-CLOUDY; BILIRUBIN,URINE NEGATIVE (NEGATIVE); COLOR,URINE YELLOW; GLUCOSE, URINE 50 mg/dL (NEGATIVE); KETONES,URINE NEGATIVE (NEGATIVE); LEUKOCYTE ESTERASE,URINE NEGATIVE (NEGATIVE); NITRITE,URINE NEGATIVE (NEGATIVE); PROTEIN,URINE >=500 mg/dL (NEGATIVE); URINE SPECIFIC GRAVITY 1.004; UROBILINOGEN,URINE NEGATIVE mg/dL (<2.0)
== END ==
LOC: OD 14:32
PROVIDERS: ATTEND Physician Assistant Medical
DX: N18.4 Chronic kidney disease, stage 4 (severe) (principal); E83.51 Hypocalcemia
CPT/HCPCS: 36415; 80069; 81001; 82306; 83735; 83970; 85025

== ENCOUNTER → 2019-03-29 | Outpatient (CLI) | payer BC, MEDICAID ==
[2019-03-29 12:48] LABS: ABSOLUTE BASOPHILS # (AUTO) 0.2 10^3/uL (0.0-0.2); ABSOLUTE EOSINOPHILS # (AUTO) 0.1 10^3/uL (0.0-0.6); ABSOLUTE LYMPHOCYTES (AUTO) 1.7 10^3/uL (0.5-4.7); ABSOLUTE MONOCYTES (AUTO) 0.3 10^3/uL (0.1-1.4); ABSOLUTE NEUT (AUTO) 4.7 10^3/uL (1.7-8.2); BASOPHILS % (AUTO) 2.2 % (0-2); EOSINOPHILS % (AUTO) 1.8 % (0-6); HEMATOCRIT 28.4 % (36.0-47.0); HEMOGLOBIN 9.8 g/dL (12.0-15.5); LYMPHOCYTES % (AUTO) 24.9 % (13-45); MEAN CORPUSCULAR HEMOGLOBIN 30.4 pg (27.0-33.4); MEAN CORPUSCULAR HGB CONC 34.4 g/dL (32.0-36.0); MEAN CORPUSCULAR VOLUME 88 fl (80-97); MONOCYTES % (AUTO) 4.2 % (3-13); PLATELET COUNT 519 10^3/uL (150-450); RED BLOOD COUNT 3.22 10^6/uL (3.72-5.28); RED CELL DISTRIBUTION WIDTH 15.3 % (11.5-14.0); SEGMENTED NEUTROPHILS % (AUTO) 66.9 % (42-78); TOTAL CELLS COUNTED % (AUTO) 100 %
[2019-03-29 13:06] LABS: ALBUMIN 3.9 g/dL (3.5-5.0); ANION GAP 13 (5-19); BLOOD UREA NITROGEN 51 mg/dL (7-20); CALCIUM 7.5 mg/dL (8.4-10.2); CARBON DIOXIDE 22 mmol/L (22-30); CHLORIDE 101 mmol/L (98-107); GLUCOSE 87 mg/dL (75-110); IRON(TIBC) 54.5 ug/dL (37-170); PHOSPHORUS 7.5 mg/dL (2.5-4.5); POTASSIUM 5.2 mmol/L (3.6-5.0)
== END ==
LOC: OD 11:53
PROVIDERS: ATTEND Physician Assistant Medical
DX: I12.9 Hypertensive chronic kidney disease with stage 1 through stage 4 chronic kidney disease, or unspecified chronic kidney disease (principal); N17.9 Acute kidney failure, unspecified; N18.4 Chronic kidney disease, stage 4 (severe); E11.22 Type 2 diabetes mellitus with diabetic chronic kidney disease; E83.51 Hypocalcemia; E83.30 Disorder of phosphorus metabolism, unspecified
CPT/HCPCS: 36415; 80069; 82728; 83540; 83550; 83735; 85025

== ENCOUNTER 2019-03-31 11:03 | Emergency (ER) | payer BC, MEDICAID ==
[2019-03-31 11:35] LABS: ABSOLUTE BASOPHILS # (AUTO) 0.1 10^3/uL (0.0-0.2); ABSOLUTE EOSINOPHILS # (AUTO) 0.1 10^3/uL (0.0-0.6); ABSOLUTE LYMPHOCYTES (AUTO) 1.6 10^3/uL (0.5-4.7); ABSOLUTE MONOCYTES (AUTO) 0.4 10^3/uL (0.1-1.4); ABSOLUTE NEUT (AUTO) 5.5 10^3/uL (1.7-8.2); BASOPHILS % (AUTO) 1.3 % (0-2); EOSINOPHILS % (AUTO) 1.3 % (0-6); HEMATOCRIT 30.4 % (36.0-47.0); HEMOGLOBIN 10.1 g/dL (12.0-15.5); LYMPHOCYTES % (AUTO) 21.3 % (13-45); MEAN CORPUSCULAR HEMOGLOBIN 29.6 pg (27.0-33.4); MEAN CORPUSCULAR HGB CONC 33.3 g/dL (32.0-36.0); MEAN CORPUSCULAR VOLUME 89 fl (80-97); MONOCYTES % (AUTO) 5.4 % (3-13); PLATELET COUNT 520 10^3/uL (150-450); RED BLOOD COUNT 3.42 10^6/uL (3.72-5.28); RED CELL DISTRIBUTION WIDTH 15.2 % (11.5-14.0); SEGMENTED NEUTROPHILS % (AUTO) 70.7 % (42-78); TOTAL CELLS COUNTED % (AUTO) 100 %; WHITE BLOOD COUNT 7.7 10^3/uL (4.0-10.5)
[2019-03-31 11:46] LABS: PROTHROMBIN TIME 13.2 SEC (11.4-15.4)
--- NOTE | 2019-03-31 12:31 | ER Document Report ---
ED General - General Chief Complaint: Abnormal Lab Results Stated Complaint: ABNORMAL LABS Time Seen by Provider: 03/31/19 12:30 Primary Care Provider: SHARON RICK PA-C [Primary Care Provider] - Follow up as needed Mode of Arrival: Ambulatory Information source: Patient Notes: Patient is here today because of abnormal labs. She was sent here by PEARL Rick who works with Dr. Mabry commercial retoucher. Patient reports she has kidney problems for the last year but is not on dialysis. She reports she has a sinus infection with right earache for least 1 week on antibiotics and usually has swollen legs but they are down today. Patient denies any chest pain neck pain back pain abdominal pain extremity problems visual problems cephalgia nuchal rigidity fever chills cough or cold. Ports the blood test showed some potassium and glucose elevation. Raghavendra was called at [phone] by telephone. This was through the transit mixer operator. Patient's potassium was 5.7 with BUN 65 and creatinine 4.2 where is on 22 March as ordered by PEARL Rick she had a 40 BUN creatinine of 3 and a PTH of 320 and her potassium was 4.7 at that time as well. TRAVEL OUTSIDE OF THE [place] IN LAST 30 DAYS: No - HPI Onset: Yesterday Onset/Duration: Sudden Quality of pain: No pain Severity: None Pain Level: Denies Associated symptoms: None - Related Data Allergies/Adverse Reactions: codeine Allergy (Verified 02/10/19 10:42) Itching latex Allergy (Verified 02/10/19 10:42) Hives liothyronine [From Cytomel] Allergy (Verified 02/10/19 10:42) Shortness of Breath morphine [Morphine] Allergy (Verified 02/10/19 10:42) Itching nalbuphine [From Nubain] Allergy (Verified 02/10/19 10:42) Itching hydrocodone Adverse Reaction (Mild, Verified 02/10/19 10:42) Rash plastic tape Allergy (Uncoded 02/10/19 10:42) Itching Past Medical History - General Information source: Patient - Social History Smoking Status: Current Every Day Smoker Cigarette use (# per day): No Chew tobacco use (# tins/day): No Smoking Education Provided: Yes Frequency of alcohol use: None Drug Abuse: None Lives with: Family Family History: CAD Patient has suicidal ideation: No Patient has homicidal ideation: No - Past Medical History Cardiac Medical History: Reports: Hx Coronary Artery Disease, Hx Hypercholesterolemia, Hx Hypertension, Hx Pulmonary Embolism Denies: Hx Heart Attack Pulmonary Medical History: Reports: Hx Asthma, Hx Bronchitis, Hx COPD, Hx Pneumonia, Hx Sleep Apnea Denies: Hx Tuberculosis Neurological Medical History: Reports: Hx Cerebrovascular Accident - Weakness Rt Leg, uses cane. Denies: Hx Seizures Endocrine Medical History: Reports: Hx Diabetes Mellitus Type 2, Hx Hypothyroidism Renal/ Medical History: Denies: Hx Peritoneal Dialysis Malignancy Medical History: Reports: Hx Breast Cancer GI Medical History: Reports: Hx Gastroesophageal Reflux Disease Musculoskeletal Medical History: Reports Hx Arthritis Psychiatric Medical History: Reports: Hx Bipolar Disorder, Hx Depression Past Surgical History: Reports: Hx Appendectomy, Hx Cardiac Catheterization - stent x 1, Hx Cholecystectomy, Hx Coronary Stent, Hx Mastectomy - left side, pt states many years ago, Hx Thyroid Surgery - thyroid removal - Immunizations Hx Diphtheria, Pertussis, Tetanus Vaccination: Yes Hx Pneumococcal Vaccination: 11/29/16 Review of Systems - Review of Systems Constitutional: No symptoms reported. denies: Other EENT: See HPI, Ear pain, Sinus pressure. denies: Eye discharge, Tearing, Ear discharge, Nose pain, Nose discharge, Throat swelling Cardiovascular: No symptoms reported Respiratory: No symptoms reported Gastrointestinal: No symptoms reported Genitourinary: No symptoms reported Female Genitourinary: No symptoms reported Musculoskeletal: No symptoms reported Skin: No symptoms reported Hematologic/Lymphatic: No symptoms reported Neurological/Psychological: No symptoms reported Physical Exam - Vital signs Vitals: Pulse Ox 96 03/31/19 11:20 - General General appearance: Appears well In distress: None - HEENT Head: Normocephalic Eyes: Normal Conjunctiva: Normal Cornea: Normal Extraocular movements intact: Yes Eyelashes: Normal Pupils: PERRL Ears: Normal External canal: Normal Tympanic membrane: Serous effusion - biLaterally Mucous membranes: Normal Pharynx: Normal Neck: Normal - Respiratory Respiratory status: No respiratory distress Chest status: Nontender Breath sounds: Normal Chest palpation: Normal - Cardiovascular Rhythm: Regular Heart sounds: Normal auscultation Murmur: No Friction rub: No Garth's crunch: No - Abdominal Inspection: Normal Distension: No distension Bowel sounds: Normal Tenderness: Nontender - Genitourinary External exam: Normal - Extremities General upper extremity: Normal inspection General lower extremity: Normal inspection - Neurological Neuro grossly intact: Yes Cognition: Normal Orientation: AAOx4 [place] Coma Scale Eye Opening: Spontaneous [place] Coma Scale Verbal: Oriented [place] Coma Scale Motor: Obeys Commands Theresa Coma Scale Total: 15 Speech: Normal Cranial nerves: Normal Cerebellar coordination: Normal - Psychological Associated symptoms: Normal affect - Skin Skin Temperature: Warm Skin Moisture: Dry Course - Vital Signs Vital signs: Temp Pulse Resp BP Pulse Ox 18 172/86 H 96 03/31/19 16:01 03/31/19 16:01 03/31/19 16:01 - Laboratory Result Diagrams: 03/31/19 11:20 03/31/19 11:20 Laboratory results interpreted by me: 03/31/19 03/31/19 11:20 11:20 RBC 3.42 L Hgb 10.1 L Hct 30.4 L RDW 15.2 H Plt Count 520 H Sodium 135.9 L Potassium 5.7 H Carbon Dioxide 21 L BUN 65 H Creatinine 4.19 H Est GFR ( Amer) 13 L Est GFR (MDRD) Non-Af 11 L Glucose 115 H Calcium 8.1 L Alkaline Phosphatase 153 H Critical Care Note - Critical Care Note Total time excluding time spent on procedures (mins): 60 Comments: Spoke with Dr. Mabry at 1345 and he advises 1 L fluid and Kayexalate p.o. and send the patient home and recheck potassium in 2 days on Wednesday Discharge - Discharge Clinical Impression: Hyperkalemia, Chronic renal insufficiency, stage III (moderate) Sinusitis Qualifiers: Sinusitis location: unspecified location Chronicity: unspecified Qualified Code(s): J32.9 - Chronic sinusitis, unspecified Acute serous otitis media of both ears Qualifiers: Recurrence: not specified as recurrent Qualified Code(s): H65.03 - Acute serous otitis media, bilateral Condition: Good Disposition: HOME, SELF-CARE Additional Instructions: Follow-up with Dr. Mabry on Wednesday return to ER as needed take medicines as directed encourage fluids Prescriptions: Mupirocin [Bactroban 2% Ointment 22 gm] 1 applic NASL HSP PRN #1 tube PRN Reason: Sodium Polystyrene Sulfonate [Kayexalate 15 Gm/60 Ml Susp 60 Ml] 15 gm PO DAILY #120 ml Referrals: SHARON RICK PA-C [Primary Care Provider] - Follow up as needed
[2019-03-31 12:42] LABS: CREATINE KINASE MB 1.17 ng/mL (<4.55)
[2019-03-31 12:43] LABS: TROPONIN I < 0.012 ng/mL
[2019-03-31 12:55] LABS: ALBUMIN 4.4 g/dL (3.5-5.0); ALKALINE PHOSPHATASE 153 U/L (38-126); ANION GAP 12 (5-19); ASPARTATE AMINO TRANSFERASE 29 U/L (14-36); BILIRUBIN,DIRECT 0.3 mg/dL (0.0-0.4); BILIRUBIN,TOTAL 0.5 mg/dL (0.2-1.3); BLOOD UREA NITROGEN 65 mg/dL (7-20); CALCIUM 8.1 mg/dL (8.4-10.2); CARBON DIOXIDE 21 mmol/L (22-30); CHLORIDE 103 mmol/L (98-107); CREATINE KINASE 51 U/L (30-135); GLUCOSE 115 mg/dL (75-110); POTASSIUM 5.7 mmol/L (3.6-5.0); TOTAL PROTEIN 7.8 g/dL (6.3-8.2)
--- NOTE | 2019-03-31 13:00 | EKG REPORT ---
SEVERITY:- NORMAL ECG - SINUS RHYTHM : Confirmed by: Emilio Clay 31-Mar-2019 12:59:50
[2019-03-31] MEDS ORDERED: NORMAL SALINE 1000 ML 1,000 ML IV ONE (13:50)
[2019-03-31] MEDS ORDERED: SODIUM POLYSTYRENE SULFONATE 15 GM/60 ML PO ONE (13:51)
[2019-03-31 16:11] VITALS: BP 172/86
== END 2019-03-31 16:43 | disposition home or self-care (01) ==
LOC: ER 11:03
DX: E87.5 Hyperkalemia (principal); I12.9 Hypertensive chronic kidney disease with stage 1 through stage 4 chronic kidney disease, or unspecified chronic kidney disease; E11.22 Type 2 diabetes mellitus with diabetic chronic kidney disease; N18.3 Chronic kidney disease, stage 3 (moderate); J32.9 Chronic sinusitis, unspecified; H65.03 Acute serous otitis media, bilateral; I25.10 Atherosclerotic heart disease of native coronary artery without angina pectoris; J44.9 Chronic obstructive pulmonary disease, unspecified; F17.200 Nicotine dependence, unspecified, uncomplicated; Z88.6 Allergy status to analgesic agent; Z88.5 Allergy status to narcotic agent; Z88.8 Allergy status to other drugs, medicaments and biological substances; Z91.048 Other nonmedicinal substance allergy status
CPT/HCPCS: 93005; 99285; 96360; 36415; 82553; 82550; 85025; 85610; 80053; 84484; 93010; J7030

== ENCOUNTER → 2019-04-10 | Outpatient (CLI) | payer BC, MEDICAID ==
[2019-04-10 14:37] LABS: ALBUMIN 4.4 g/dL (3.5-5.0); ANION GAP 12 (5-19); BLOOD UREA NITROGEN 62 mg/dL (7-20); CALCIUM 8.9 mg/dL (8.4-10.2); CARBON DIOXIDE 25 mmol/L (22-30); CHLORIDE 97 mmol/L (98-107); GLUCOSE 93 mg/dL (75-110); PHOSPHORUS 6.1 mg/dL (2.5-4.5); POTASSIUM 5.6 mmol/L (3.6-5.0)
[2019-04-10 14:53] LABS: URINE CREATININE 22.3 mg/dL (15-278)
[2019-04-10 15:03] LABS: UR PRO/CREAT RATIO RESULT 16.8 mg/mg (0.0-0.2); URINE PROTEIN 374.2 mg/dL (<12)
== END ==
LOC: OD 13:25
PROVIDERS: ATTEND Physician Assistant Medical
DX: N17.9 Acute kidney failure, unspecified (principal); I12.9 Hypertensive chronic kidney disease with stage 1 through stage 4 chronic kidney disease, or unspecified chronic kidney disease; N18.4 Chronic kidney disease, stage 4 (severe); E11.22 Type 2 diabetes mellitus with diabetic chronic kidney disease; R80.9 Proteinuria, unspecified; E83.51 Hypocalcemia
CPT/HCPCS: 36415; 80069; 82570; 84156

== ENCOUNTER → 2019-04-12 | Outpatient (CLI) | payer BC, MEDICAID | LOC: OD 09:30 | PROVIDERS: ATTEND Physician Assistant Medical | DX: E87.5 Hyperkalemia (principal) | CPT/HCPCS: 36415; 84132 ==

== ENCOUNTER → 2019-04-26 | Outpatient (CLI) | payer BC, MEDICAID ==
[2019-04-26 13:15] LABS: ABSOLUTE BASOPHILS # (AUTO) 0.1 10^3/uL (0.0-0.2); ABSOLUTE EOSINOPHILS # (AUTO) 0.1 10^3/uL (0.0-0.6); ABSOLUTE LYMPHOCYTES (AUTO) 1.6 10^3/uL (0.5-4.7); ABSOLUTE MONOCYTES (AUTO) 0.5 10^3/uL (0.1-1.4); ABSOLUTE NEUT (AUTO) 5.1 10^3/uL (1.7-8.2); BASOPHILS % (AUTO) 1.2 % (0-2); EOSINOPHILS % (AUTO) 1.3 % (0-6); HEMATOCRIT 30.4 % (36.0-47.0); HEMOGLOBIN 10.7 g/dL (12.0-15.5); LYMPHOCYTES % (AUTO) 22.4 % (13-45); MEAN CORPUSCULAR HEMOGLOBIN 30.6 pg (27.0-33.4); MEAN CORPUSCULAR HGB CONC 35.3 g/dL (32.0-36.0); MEAN CORPUSCULAR VOLUME 87 fl (80-97); MONOCYTES % (AUTO) 6.4 % (3-13); PLATELET COUNT 479 10^3/uL (150-450); RED BLOOD COUNT 3.51 10^6/uL (3.72-5.28); RED CELL DISTRIBUTION WIDTH 15.6 % (11.5-14.0); SEGMENTED NEUTROPHILS % (AUTO) 68.7 % (42-78); TOTAL CELLS COUNTED % (AUTO) 100 %; WHITE BLOOD COUNT 7.3 10^3/uL (4.0-10.5)
[2019-04-26 13:30] LABS: ALBUMIN 4.1 g/dL (3.5-5.0); ANION GAP 11 (5-19); BLOOD UREA NITROGEN 60 mg/dL (7-20); CALCIUM 8.9 mg/dL (8.4-10.2); CARBON DIOXIDE 23 mmol/L (22-30); CHLORIDE 100 mmol/L (98-107); GLUCOSE 108 mg/dL (75-110); PHOSPHORUS 6.9 mg/dL (2.5-4.5); POTASSIUM 4.9 mmol/L (3.6-5.0)
[2019-04-26 13:34] LABS: APPEARANCE,URINE CLEAR; BILIRUBIN,URINE NEGATIVE (NEGATIVE); COLOR,URINE STRAW; GLUCOSE, URINE 50 mg/dL (NEGATIVE); KETONES,URINE NEGATIVE (NEGATIVE); LEUKOCYTE ESTERASE,URINE NEGATIVE (NEGATIVE); NITRITE,URINE NEGATIVE (NEGATIVE); PROTEIN,URINE 100 mg/dL (NEGATIVE); URINE SPECIFIC GRAVITY 1.006; UROBILINOGEN,URINE NEGATIVE mg/dL (<2.0)
[2019-04-26 13:51] LABS: URINE CREATININE 13.9 mg/dL (15-278)
[2019-04-26 14:01] LABS: UR PRO/CREAT RATIO RESULT 18.9 mg/mg (0.0-0.2); URINE PROTEIN 262.7 mg/dL (<12)
== END ==
LOC: OD 12:24
PROVIDERS: ATTEND Physician Assistant Medical
DX: I12.9 Hypertensive chronic kidney disease with stage 1 through stage 4 chronic kidney disease, or unspecified chronic kidney disease (principal); N18.4 Chronic kidney disease, stage 4 (severe); N17.9 Acute kidney failure, unspecified; E11.22 Type 2 diabetes mellitus with diabetic chronic kidney disease; E83.51 Hypocalcemia; E83.30 Disorder of phosphorus metabolism, unspecified
CPT/HCPCS: 36415; 80069; 81001; 82570; 83735; 83970; 84156; 85025

== ENCOUNTER 2019-05-03 08:56 | Outpatient (CLI) | payer BC, MEDICAID ==
[~2019-05-03 08:56] MED LIST changes: -AMINOPHYLLINE INJ/PF 250 MG/10 ML SDV IV ONE; +FERRIC CARBOXYMALTOSE 750 MG in NORMAL SALINE 250 ML IV PRN; +NORMAL SALINE 250 ML IV PRN; -REGADENOSON INJ 0.4 MG/5 ML DISP.SYRIN IV ONE
[2019-05-03 09:05] VITALS: BP 147/82
== END 2019-05-03 10:20 | disposition home or self-care (01) ==
LOC: II 08:56 → 5TH 08:58 → II 10:20
PROVIDERS: ATTEND Physician Assistant Medical
DX: D50.8 Other iron deficiency anemias (principal)
CPT/HCPCS: 96365; J7050; J1439

== ENCOUNTER 2019-05-11 12:06 | Emergency (ER) | payer BC, MEDICAID ==
--- NOTE | 2019-05-11 13:17 | ER Document Report ---
HPI - HPI Time Seen by Provider: 05/11/19 13:04 Onset: Last week Onset/Duration: Sudden Pain Level: Denies Associated Symptoms: None Exacerbated by: Denies Similar symptoms previously: Yes - CONSTITUTIONAL Constitutional: DENIES: Fever, Chills - RESPIRATORY Respiratory: REPORTS: Coughing - REPRODUCTIVE Reproductive: DENIES: : Past Medical History - General Information source: Patient - Social History Smoking Status: Current Every Day Smoker Cigarette use (# per day): Yes Chew tobacco use (# tins/day): No Smoking Education Provided: Yes Frequency of alcohol use: None Drug Abuse: None Family History: CAD Patient has suicidal ideation: No Patient has homicidal ideation: No - Past Medical History Cardiac Medical History: Reports: Hx Coronary Artery Disease, Hx Hypercholesterolemia, Hx Hypertension, Hx Pulmonary Embolism Denies: Hx Heart Attack Pulmonary Medical History: Reports: Hx Asthma, Hx Bronchitis, Hx COPD, Hx Pneumonia, Hx Sleep Apnea Denies: Hx Tuberculosis Neurological Medical History: Reports: Hx Cerebrovascular Accident - Weakness Rt Leg, uses cane. Denies: Hx Seizures Endocrine Medical History: Reports: Hx Diabetes Mellitus Type 2, Hx Hypothyroidism Renal/ Medical History: Denies: Hx Peritoneal Dialysis Malignancy Medical History: Reports: Hx Breast Cancer GI Medical History: Reports: Hx Gastroesophageal Reflux Disease Musculoskeletal Medical History: Reports Hx Arthritis Psychiatric Medical History: Reports: Hx Bipolar Disorder, Hx Depression Past Surgical History: Reports: Hx Appendectomy, Hx Cardiac Catheterization - stent x 1, Hx Cholecystectomy, Hx Coronary Stent, Hx Mastectomy - left side, pt states many years ago, Hx Thyroid Surgery - thyroid removal - Immunizations Hx Diphtheria, Pertussis, Tetanus Vaccination: Yes Hx Pneumococcal Vaccination: 11/29/16 Vertical Provider Document - INFECTION CONTROL TRAVEL OUTSIDE OF THE [place] IN LAST 30 DAYS: No - HEENT HEENT: Atraumatic, Normocephalic, PERRLA, Pharyngeal Exudate - NECK Neck: Normal Inspection - RESPIRATORY Respiratory: Rhonchi Course - Vital Signs Vital signs: Temp Pulse Resp BP Pulse Ox 97.7 F 73 16 145/64 H 95 05/11/19 12:10 05/11/19 12:10 05/11/19 12:10 05/11/19 12:10 05/11/19 12:10 Discharge - Discharge Clinical Impression: Reactive airway disease Qualifiers: Asthma severity: moderate Asthma persistence: persistent Asthma complication type: uncomplicated Qualified Code(s): J45.40 - Moderate persistent asthma, uncomplicated Condition: Fair Disposition: HOME, SELF-CARE Instructions: Reactive Airway Disease ([facility]) Additional Instructions: Must follow-up with PMD in 2 to 3 days for continued symptoms. To consider further diagnostic testing. Return to the emergency room immediately for absolutely any change or worsening. Prescriptions: Penicillin V Potassium [Penicillin Vk 500 mg Tablet] 500 mg PO BID #20 tablet Referrals: SHARON RICK PA-C [Primary Care Provider] - Follow up as needed
[2019-05-11 14:05] VITALS: BP 148/74
== END 2019-05-11 14:04 | disposition home or self-care (01) ==
LOC: ER 12:06
DX: J45.40 Moderate persistent asthma, uncomplicated (principal); J44.9 Chronic obstructive pulmonary disease, unspecified; R05 Cough; F17.210 Nicotine dependence, cigarettes, uncomplicated; I25.10 Atherosclerotic heart disease of native coronary artery without angina pectoris; I10 Essential (primary) hypertension; E11.9 Type 2 diabetes mellitus without complications; Z85.3 Personal history of malignant neoplasm of breast
CPT/HCPCS: 99283

== ENCOUNTER → 2019-05-24 | Outpatient (CLI) | payer BC, MEDICAID ==
[2019-05-24 12:02] LABS: A TYPE INFLUENZA AG NEGATIVE (NEGATIVE); B INFLUENZA AG NEGATIVE (NEGATIVE)
== END ==
LOC: RDC 10:50
PROVIDERS: ATTEND Registered Nurse
DX: Z20.828 Contact with and (suspected) exposure to other viral communicable diseases (principal)
CPT/HCPCS: 87070; 87635; 87804; 87880

== ENCOUNTER → 2019-06-07 | Outpatient (CLI) | payer BC, MEDICAID ==
[2019-06-07 15:53] LABS: ABSOLUTE BASOPHILS # (AUTO) 0.1 10^3/uL (0.0-0.2); ABSOLUTE EOSINOPHILS # (AUTO) 0.2 10^3/uL (0.0-0.6); ABSOLUTE LYMPHOCYTES (AUTO) 1.8 10^3/uL (0.5-4.7); ABSOLUTE MONOCYTES (AUTO) 0.4 10^3/uL (0.1-1.4); ABSOLUTE NEUT (AUTO) 7.2 10^3/uL (1.7-8.2); BASOPHILS % (AUTO) 1.1 % (0-2); EOSINOPHILS % (AUTO) 1.5 % (0-6); HEMATOCRIT 34.8 % (36.0-47.0); HEMOGLOBIN 11.9 g/dL (12.0-15.5); LYMPHOCYTES % (AUTO) 18.7 % (13-45); MEAN CORPUSCULAR HGB CONC 34.3 g/dL (32.0-36.0); MEAN CORPUSCULAR VOLUME 91 fl (80-97); MONOCYTES % (AUTO) 4.4 % (3-13); PLATELET COUNT 445 10^3/uL (150-450); RED BLOOD COUNT 3.85 10^6/uL (3.72-5.28); RED CELL DISTRIBUTION WIDTH 17.2 % (11.5-14.0); SEGMENTED NEUTROPHILS % (AUTO) 74.3 % (42-78); TOTAL CELLS COUNTED % (AUTO) 100 %; WHITE BLOOD COUNT 9.7 10^3/uL (4.0-10.5)
[2019-06-07 16:17] LABS: ALBUMIN 4.1 g/dL (3.5-5.0); ANION GAP 9 (5-19); BLOOD UREA NITROGEN 60 mg/dL (7-20); CALCIUM 8.5 mg/dL (8.4-10.2); CARBON DIOXIDE 23 mmol/L (22-30); CHLORIDE 103 mmol/L (98-107); GLUCOSE 158 mg/dL (75-110); PHOSPHORUS 7.4 mg/dL (2.5-4.5); POTASSIUM 4.2 mmol/L (3.6-5.0)
[2019-06-07 16:57] LABS: URINE CREATININE 26.9 mg/dL (15-278)
[2019-06-07 17:04] LABS: UR PRO/CREAT RATIO RESULT 12.6 mg/mg (0.0-0.2); URINE PROTEIN 339.8 mg/dL (<12)
== END ==
LOC: OD 15:08
PROVIDERS: ATTEND Physician Assistant Medical
DX: I12.9 Hypertensive chronic kidney disease with stage 1 through stage 4 chronic kidney disease, or unspecified chronic kidney disease (principal); N17.9 Acute kidney failure, unspecified; N18.4 Chronic kidney disease, stage 4 (severe); E11.22 Type 2 diabetes mellitus with diabetic chronic kidney disease; R80.9 Proteinuria, unspecified; D64.9 Anemia, unspecified
CPT/HCPCS: 36415; 80069; 82570; 83970; 84156; 85025

== ENCOUNTER 2019-06-29 20:29 | Emergency (ER) | payer BC, MEDICAID ==
[2019-06-29] MEDS ORDERED: ONDANSETRON 4 MG TAB.RAPDIS PO ONE (21:15)
--- NOTE | 2019-06-29 21:17 | ER Document Report ---
ED Medical Screen (RME) - General Stated Complaint: VOMITTING Time Seen by Provider: 06/29/19 21:12 Primary Care Provider: SHARON RICK PA-C [Primary Care Provider] - Follow up as needed Mode of Arrival: Wheelchair Information source: Patient Notes: 63-year-old female diabetic with stage IV kidney disease presents emergency department with complaints of nausea vomiting 3 times today. Reports she took Phenergan twice without relief of symptoms. Denies diarrhea fever. Reports she took her insulin prior to arrival and vomited afterwards. No complaints of abdominal pain. I have greeted and performed a rapid initial assessment of this patient. A comprehensive ED assessment and evaluation of the patient, analysis of test results and completion of the medical decision making process will be conducted by additional ED providers. TRAVEL OUTSIDE OF THE [place] IN LAST 30 DAYS: No - Related Data Allergies/Adverse Reactions: codeine Allergy (Verified 02/10/19 10:42) Itching latex Allergy (Verified 02/10/19 10:42) Hives liothyronine [From Cytomel] Allergy (Verified 02/10/19 10:42) Shortness of Breath morphine [Morphine] Allergy (Verified 02/10/19 10:42) Itching nalbuphine [From Nubain] Allergy (Verified 02/10/19 10:42) Itching hydrocodone Adverse Reaction (Mild, Verified 02/10/19 10:42) Rash plastic tape Allergy (Uncoded 02/10/19 10:42) Itching Past Medical History - Past Medical History Cardiac Medical History: Reports: Hx Coronary Artery Disease, Hx Hypercholesterolemia, Hx Hypertension, Hx Pulmonary Embolism Denies: Hx Heart Attack Pulmonary Medical History: Reports: Hx Asthma, Hx Bronchitis, Hx COPD, Hx Pneumonia, Hx Sleep Apnea Denies: Hx Tuberculosis Neurological Medical History: Reports: Hx Cerebrovascular Accident - Weakness Rt Leg, uses cane. Denies: Hx Seizures Endocrine Medical History: Reports: Hx Diabetes Mellitus Type 2, Hx Hypothyroidism Renal/ Medical History: Denies: Hx Peritoneal Dialysis Malignancy Medical History: Reports: Hx Breast Cancer GI Medical History: Reports: Hx Gastroesophageal Reflux Disease Musculoskeltal Medical History: Reports Hx Arthritis Psychiatric Medical History: Reports: Hx Bipolar Disorder, Hx Depression Past Surgical History: Reports: Hx Appendectomy, Hx Cardiac Catheterization - stent x 1, Hx Cholecystectomy, Hx Coronary Stent, Hx Mastectomy - left side, pt states many years ago, Hx Thyroid Surgery - thyroid removal - Immunizations Hx Diphtheria, Pertussis, Tetanus Vaccination: Yes Physical Exam - Vital signs Vitals: Temp Pulse Resp BP Pulse Ox 98.7 F 88 16 178/74 H 98 06/29/19 20:36 06/29/19 20:36 06/29/19 20:36 06/29/19 20:36 06/29/19 20:36 Course - Vital Signs Vital signs: Temp Pulse Resp BP Pulse Ox 98.7 F 88 16 178/74 H 98 06/29/19 20:36 06/29/19 20:36 06/29/19 20:36 06/29/19 20:36 06/29/19 20:36 Doctor's Discharge - Discharge Referrals: SHARON RICK PA-C [Primary Care Provider] - Follow up as needed
[2019-06-29 22:00] LABS: ABSOLUTE BASOPHILS # (AUTO) 0.1 10^3/uL (0.0-0.2); ABSOLUTE EOSINOPHILS # (AUTO) 0.1 10^3/uL (0.0-0.6); ABSOLUTE LYMPHOCYTES (AUTO) 1.9 10^3/uL (0.5-4.7); ABSOLUTE MONOCYTES (AUTO) 0.7 10^3/uL (0.1-1.4); ABSOLUTE NEUT (AUTO) 8.3 10^3/uL (1.7-8.2); EOSINOPHILS % (AUTO) 0.7 % (0-6); HEMATOCRIT 36.7 % (36.0-47.0); HEMOGLOBIN 12.8 g/dL (12.0-15.5); LYMPHOCYTES % (AUTO) 16.9 % (13-45); MEAN CORPUSCULAR HEMOGLOBIN 31.5 pg (27.0-33.4); MEAN CORPUSCULAR HGB CONC 34.9 g/dL (32.0-36.0); MEAN CORPUSCULAR VOLUME 90 fl (80-97); PLATELET COUNT 510 10^3/uL (150-450); RED BLOOD COUNT 4.08 10^6/uL (3.72-5.28); RED CELL DISTRIBUTION WIDTH 17.2 % (11.5-14.0); SEGMENTED NEUTROPHILS % (AUTO) 75.4 % (42-78); TOTAL CELLS COUNTED % (AUTO) 100 %
[2019-06-29 22:03] LABS: APPEARANCE,URINE CLEAR; BILIRUBIN,URINE NEGATIVE (NEGATIVE); COLOR,URINE STRAW; GLUCOSE, URINE 50 mg/dL (NEGATIVE); KETONES,URINE NEGATIVE (NEGATIVE); LEUKOCYTE ESTERASE,URINE NEGATIVE (NEGATIVE); NITRITE,URINE NEGATIVE (NEGATIVE); PROTEIN,URINE 100 mg/dL (NEGATIVE); URINE SPECIFIC GRAVITY 1.004; UROBILINOGEN,URINE NEGATIVE mg/dL (<2.0)
[2019-06-29 22:20] LABS: ALBUMIN 4.3 g/dL (3.5-5.0); ALKALINE PHOSPHATASE 117 U/L (38-126); ANION GAP 12 (5-19); ASPARTATE AMINO TRANSFERASE 33 U/L (14-36); BILIRUBIN,DIRECT 0.3 mg/dL (0.0-0.4); BILIRUBIN,TOTAL 0.5 mg/dL (0.2-1.3); BLOOD UREA NITROGEN 51 mg/dL (7-20); CALCIUM 9.8 mg/dL (8.4-10.2); CARBON DIOXIDE 23 mmol/L (22-30); CHLORIDE 95 mmol/L (98-107); GLUCOSE 83 mg/dL (75-110); POTASSIUM 4.6 mmol/L (3.6-5.0); TOTAL PROTEIN 7.3 g/dL (6.3-8.2)
[2019-06-30 01:19] VITALS: BP 143/66
[2019-06-30] MEDS ORDERED: ONDANSETRON ODT 4 MG TAB (6 TAB/ER DISP) PO PRN (01:38)
--- NOTE | 2019-06-30 01:39 | ER Document Report ---
ED GI/ - General Chief Complaint: Vomiting Stated Complaint: VOMITTING Time Seen by Provider: 06/29/19 21:12 Primary Care Provider: SHARON RICK PA-C [Primary Care Provider] - Follow up tomorrow Mode of Arrival: Wheelchair Information source: Patient Notes: 63-year-old female past medical history significant for stage IV kidney disease, diabetes, hypertension, COPD, hyperlipidemia presents to the emergency room complaining of nausea with vomiting that started earlier today. Denies any abdominal pain, no diarrhea, no fevers, no urinary symptoms. States she took Phenergan at home without relief. No bad food she can think of. No ill contacts. No recent antibiotics. TRAVEL OUTSIDE OF THE [place] IN LAST 30 DAYS: No - Related Data Allergies/Adverse Reactions: codeine Allergy (Verified 02/10/19 10:42) Itching latex Allergy (Verified 02/10/19 10:42) Hives liothyronine [From Cytomel] Allergy (Verified 02/10/19 10:42) Shortness of Breath morphine [Morphine] Allergy (Verified 02/10/19 10:42) Itching nalbuphine [From Nubain] Allergy (Verified 02/10/19 10:42) Itching hydrocodone Adverse Reaction (Mild, Verified 02/10/19 10:42) Rash plastic tape Allergy (Uncoded 02/10/19 10:42) Itching Past Medical History - General Information source: Patient - Social History Smoking Status: Current Every Day Smoker Frequency of alcohol use: None Drug Abuse: None Lives with: Family Family History: CAD Patient has homicidal ideation: No - Past Medical History Cardiac Medical History: Reports: Hx Coronary Artery Disease, Hx Hypercholesterolemia, Hx Hypertension, Hx Pulmonary Embolism Denies: Hx Heart Attack Pulmonary Medical History: Reports: Hx Asthma, Hx Bronchitis, Hx COPD, Hx Pneumonia, Hx Sleep Apnea Denies: Hx Tuberculosis Neurological Medical History: Reports: Hx Cerebrovascular Accident - Weakness Rt Leg, uses cane. Denies: Hx Seizures Endocrine Medical History: Reports: Hx Diabetes Mellitus Type 2, Hx Hypothyroidism Renal/ Medical History: Denies: Hx Peritoneal Dialysis Malignancy Medical History: Reports: Hx Breast Cancer GI Medical History: Reports: Hx Gastroesophageal Reflux Disease Musculoskeletal Medical History: Reports Hx Arthritis Psychiatric Medical History: Reports: Hx Bipolar Disorder, Hx Depression Past Surgical History: Reports: Hx Appendectomy, Hx Cardiac Catheterization - stent x 1, Hx Cholecystectomy, Hx Coronary Stent, Hx Mastectomy - left side, pt states many years ago, Hx Thyroid Surgery - thyroid removal - Immunizations Hx Diphtheria, Pertussis, Tetanus Vaccination: Yes Hx Pneumococcal Vaccination: 11/29/16 Review of Systems - Review of Systems Constitutional: No symptoms reported Cardiovascular: No symptoms reported Respiratory: No symptoms reported Gastrointestinal: Nausea, Vomiting. denies: Abdominal pain, Diarrhea Musculoskeletal: No symptoms reported Skin: No symptoms reported -: Yes All other systems reviewed and negative Physical Exam - Vital signs Vitals: Temp Pulse Resp BP Pulse Ox 98.7 F 88 16 178/74 H 98 06/29/19 20:36 06/29/19 20:36 06/29/19 20:36 06/29/19 20:36 06/29/19 20:36 - General General appearance: Appears well, Alert In distress: Mild - Respiratory Respiratory status: No respiratory distress Chest status: Nontender Breath sounds: Normal Chest palpation: Normal - Cardiovascular Rhythm: Regular Heart sounds: Normal auscultation Murmur: No - Abdominal Inspection: Normal Distension: No distension Bowel sounds: Normal Tenderness: Nontender Organomegaly: No organomegaly - Neurological Neuro grossly intact: Yes Cognition: Normal Orientation: AAOx4 Gurley Coma Scale Eye Opening: Spontaneous Theresa Coma Scale Verbal: Oriented Theresa Coma Scale Motor: Obeys Commands Theresa Coma Scale Total: 15 Speech: Normal Motor strength normal: LUE, RUE, LLE, RLE Sensory: Normal - Skin Skin Temperature: Warm Skin Moisture: Dry Skin Color: Normal Course - Re-evaluation Re-evalutation: 06/30/19 01:36 Patient is resting comfortably she is able to tolerate p.o. fluids. Reviewed all lab results with patient. Counseled to eat some saltine crackers patient with hyponatremia which is chronic when compared to previous lab results from recent visits. Patient was given Zofran in the emergency room which alleviated her nausea and vomiting. Will be discharged home on ODT Zofran. She has a Tele Health visit with her primary care physician tomorrow. She was given strict return to the emergency room guidelines. All questions were answered. Patient verbalized understanding and agrees with plan of care. - Vital Signs Vital signs: Temp Pulse Resp BP Pulse Ox 97.9 F 77 14 143/66 H 90 L 06/30/19 01:18 06/30/19 01:18 06/30/19 01:18 06/30/19 01:18 06/30/19 01:18 - Laboratory Result Diagrams: 06/29/19 21:45 06/29/19 21:45 Laboratory results interpreted by me: 06/29/19 06/29/19 06/29/19 21:38 21:45 21:45 WBC 11.0 H RDW 17.2 H Plt Count 510 H Absolute Neuts (auto) 8.3 H Sodium 130.0 L Chloride 95 L BUN 51 H Creatinine 4.89 H Est GFR ( Amer) 11 L Est GFR (MDRD) Non-Af 9 L Urine Protein 100 H Urine Glucose (UA) 50 H Discharge - Discharge Clinical Impression: Nausea & vomiting Qualifiers: Vomiting type: unspecified Vomiting Intractability: non-intractable Qualified Code(s): R11.2 - Nausea with vomiting, unspecified Condition: Stable Disposition: HOME, SELF-CARE Instructions: Antinausea Medication ([facility]), Vomiting ([facility]) Additional Instructions: Medications as prescribed. Saltine crackers. Return for new or worsening symptoms. Follow-up primary care physician as scheduled. Referrals: SHARON RICK PA-C [Primary Care Provider] - Follow up tomorrow
== END 2019-06-30 01:41 | disposition home or self-care (01) ==
LOC: ER 20:29
DX: R11.2 Nausea with vomiting, unspecified (principal); E87.1 Hypo-osmolality and hyponatremia; E11.9 Type 2 diabetes mellitus without complications; I10 Essential (primary) hypertension; J44.9 Chronic obstructive pulmonary disease, unspecified; F17.200 Nicotine dependence, unspecified, uncomplicated; I25.10 Atherosclerotic heart disease of native coronary artery without angina pectoris; Z87.19 Personal history of other diseases of the digestive system; Z85.3 Personal history of malignant neoplasm of breast; Z88.6 Allergy status to analgesic agent; Z88.5 Allergy status to narcotic agent; Z91.040 Latex allergy status; Z88.8 Allergy status to other drugs, medicaments and biological substances; Z91.048 Other nonmedicinal substance allergy status
CPT/HCPCS: 99283; 36415; 82962; 83690; 85025; 80053; 81001; S0119

== ENCOUNTER 2019-09-11 13:14 | Emergency (ER) | payer BC, MEDICAID ==
[2019-09-11 13:49] VITALS: BP 147/81
[2019-09-11 14:11] LABS: ABSOLUTE BASOPHILS # (AUTO) 0.1 10^3/uL (0.0-0.2); ABSOLUTE EOSINOPHILS # (AUTO) 0.1 10^3/uL (0.0-0.6); ABSOLUTE LYMPHOCYTES (AUTO) 1.7 10^3/uL (0.5-4.7); ABSOLUTE MONOCYTES (AUTO) 0.4 10^3/uL (0.1-1.4); EOSINOPHILS % (AUTO) 1.2 % (0-6); HEMATOCRIT 37.1 % (36.0-47.0); HEMOGLOBIN 13.3 g/dL (12.0-15.5); LYMPHOCYTES % (AUTO) 20.8 % (13-45); MEAN CORPUSCULAR HEMOGLOBIN 32.5 pg (27.0-33.4); MEAN CORPUSCULAR HGB CONC 35.8 g/dL (32.0-36.0); MEAN CORPUSCULAR VOLUME 91 fl (80-97); MONOCYTES % (AUTO) 5.2 % (3-13); PLATELET COUNT 530 10^3/uL (150-450); RED BLOOD COUNT 4.08 10^6/uL (3.72-5.28); RED CELL DISTRIBUTION WIDTH 13.9 % (11.5-14.0); SEGMENTED NEUTROPHILS % (AUTO) 71.8 % (42-78); TOTAL CELLS COUNTED % (AUTO) 100 %; WHITE BLOOD COUNT 8.4 10^3/uL (4.0-10.5)
[2019-09-11 14:30] LABS: ALBUMIN 4.3 g/dL (3.5-5.0); ALKALINE PHOSPHATASE 84 U/L (38-126); ANION GAP 10 (5-19); ASPARTATE AMINO TRANSFERASE 38 U/L (14-36); BILIRUBIN,DIRECT 0.3 mg/dL (0.0-0.4); BILIRUBIN,TOTAL 0.6 mg/dL (0.2-1.3); BLOOD UREA NITROGEN 45 mg/dL (7-20); CARBON DIOXIDE 26 mmol/L (22-30); CHLORIDE 88 mmol/L (98-107); GLUCOSE 96 mg/dL (75-110); POTASSIUM 4.4 mmol/L (3.6-5.0)
--- NOTE | 2019-09-11 14:30 | RADIOLOGY REPORT (SQ) ---
EXAM DESCRIPTION: CHEST SINGLE VIEW IMAGES COMPLETED DATE/TIME: 09/11/2019 2:18 pm REASON FOR STUDY: cough COMPARISON: 02/10/2019 EXAM PARAMETERS: NUMBER OF VIEWS: One view. TECHNIQUE: Single frontal radiographic view of the chest acquired. RADIATION DOSE: NA LIMITATIONS: None. FINDINGS: LUNGS AND PLEURA: Asymmetric nodule in the left upper lobe. This measures approximately 1 .8 cm. This could represent focal airspace disease. It has possible this represents pulmonary nodul e. It does overlie the 2nd anterior rib and confluence of shadows is also a consideration. Lung fie lds are otherwise clear. No effusions. No pneumothorax. MEDIASTINUM AND HILAR STRUCTURES: No masses. Contour normal. HEART AND VASCULAR STRUCTURES: Heart normal in size. Normal vasculature. BONES: No acute findings. HARDWARE: None in the chest. OTHER: No other significant finding. IMPRESSION: Asymmetric nodular opacity overlying the left upper lobe. Possibly confluence of shadow s. Focal pneumonia or pulmonary nodule are also possibilities. Recommend shallow obliques for furth er evaluation to see if this represents confluence of shadows or true parenchymal finding. TECHNICAL DOCUMENTATION: JOB ID: [id number] 2010 [employer]- All Rights Reserved Reading location - IP/workstation name: [email or web address]
[2019-09-11 14:39] LABS: CALCIUM 12.4 mg/dL (8.4-10.2)
[2019-09-11] MEDS ORDERED: NORMAL SALINE 1000 ML 1,000 ML IV ONE ×2 (15:39→17:09)
--- NOTE | 2019-09-11 15:44 | ER Document Report ---
ED General - General Chief Complaint: Nausea/Vomiting Stated Complaint: NAUSEA,VOMITING Time Seen by Provider: 09/11/19 15:19 Primary Care Provider: SHARON RICK PA-C [Primary Care Provider] - Follow up as needed TRAVEL OUTSIDE OF THE [place] IN LAST 30 DAYS: No - HPI Notes: Patient is a 64-year-old female who presents to the emergency department for evaluation of increased nausea and vomiting. She states this has been ongoing for the last month or 2. She states she is vomited at least daily. She states she is vomited at least 4-5 times today. She really states she is not keeping down any fluids. She feels extremely weak. She states her last urination was nearly 9 hours ago. She denies any pain. She denies any significant shortness of breath, states she is at about baseline. She does continue to smoke. The patient has a history of chronic kidney disease, states she is not currently on dialysis. She states she is taking her medications as prescribed, but only has some of her medications with her, and is unable to identify what most of them are. - Related Data Allergies/Adverse Reactions: codeine Allergy (Verified 02/10/19 10:42) Itching latex Allergy (Verified 02/10/19 10:42) Hives liothyronine [From Cytomel] Allergy (Verified 02/10/19 10:42) Shortness of Breath morphine [Morphine] Allergy (Verified 02/10/19 10:42) Itching nalbuphine [From Nubain] Allergy (Verified 02/10/19 10:42) Itching hydrocodone Adverse Reaction (Mild, Verified 02/10/19 10:42) Rash plastic tape Allergy (Uncoded 02/10/19 10:42) Itching Past Medical History - General Information source: Patient - Social History Smoking Status: Current Every Day Smoker Drug Abuse: Marijuana Family History: CAD Patient has homicidal ideation: No - Past Medical History Cardiac Medical History: Reports: Hx Coronary Artery Disease, Hx Hypercholesterolemia, Hx Hypertension, Hx Pulmonary Embolism Denies: Hx Heart Attack Pulmonary Medical History: Reports: Hx Asthma, Hx Bronchitis, Hx COPD, Hx Pneumonia, Hx Sleep Apnea Denies: Hx Tuberculosis Neurological Medical History: Reports: Hx Cerebrovascular Accident - Weakness Rt Leg, uses cane. Denies: Hx Seizures Endocrine Medical History: Reports: Hx Diabetes Mellitus Type 2 - Is the way with the health is going on out there, Hx Hypothyroidism Renal/ Medical History: Reports: Hx Renal Insufficiency. Denies: Hx Peritoneal Dialysis Malignancy Medical History: Reports: Hx Breast Cancer GI Medical History: Reports: Hx Gastroesophageal Reflux Disease Musculoskeletal Medical History: Reports Hx Arthritis Psychiatric Medical History: Reports: Hx Bipolar Disorder, Hx Depression Past Surgical History: Reports: Hx Appendectomy, Hx Cardiac Catheterization - stent x 1, Hx Cholecystectomy, Hx Coronary Stent, Hx Mastectomy - left side, pt states many years ago, Hx Thyroid Surgery - thyroid removal - Immunizations Hx Diphtheria, Pertussis, Tetanus Vaccination: Yes Hx Pneumococcal Vaccination: 11/29/16 Review of Systems - Review of Systems Constitutional: See HPI Gastrointestinal: See HPI Genitourinary: See HPI -: Yes All other systems reviewed and negative Physical Exam - Vital signs Vitals: Temp Pulse Resp BP Pulse Ox 98.8 F 73 21 H 147/81 H 93 09/11/19 13:37 09/11/19 13:37 09/11/19 13:37 09/11/19 13:37 09/11/19 13:37 - Notes Notes: This is a 64-year-old female who appears older than her stated age, no acute distress. Vital signs reviewed, please refer to chart. Head is normocephalic, atraumatic. Pupils equal round, reactive to light. Neck is supple without meningismus. Heart is regular rate and rhythm. Lungs reveal inspiratory and expiratory wheezes throughout. Abdomen is soft, nontender, normoactive bowel sounds throughout. Extremities without cyanosis, clubbing. Posterior calves are nontender. Peripheral pulses are equal. Skin is warm and dry. Patient is awake, alert, no gross facial asymmetry. She moves all 4 extremities spontaneously. Course - Re-evaluation Re-evalutation: 09/11/19 15:43 Patient presents to the emergency department for evaluation. She had laboratory investigations as ordered according to protocol. Laboratory investigation showed significant acute on chronic renal failure as well as hypercalcemia. In this patient with chronic renal failure, certainly that may be the primary etiology, but the patient also has had a long-term history of smoking, I cannot rule out the possibility of malignancy. Patient is given a liter of IV fluids. EKG is ordered. Chest x-ray ordered to evaluate for any possible lung mass. Awaiting urinalysis. Will continue to monitor. 09/11/19 17:18 Chest x-ray unremarkable, it is a healing posterior rib fracture causing any abnormality noted there. Her fluids are tolerated well. I spoke with Dr. Mabry who agrees with admission. He asked that the patient's fluids be continued at 150 cc an hour, and he will see the patient in consultation. Awaiting discussion with medicine. 09/11/19 17:24 Patient accepted by medicine. He will be seen by Dr. Anoop Stephens admitting. 09/11/19 17:55 I was notified by nursing that patient wants to leave AGAINST MEDICAL ADVICE. I went over to talk to the patient. She states she was aggravated that she was not going to get a bed immediately. I told her we would make this happen as quickly as possible. I talked to her at length about the significant risks associated with hyponatremia and hypercalcemia, including but not limited to seizures, cardiac arrest, resultant neurological deficits and . She voiced understanding to all of this. She states she still wants to leave. She assures me her is a retired accountant manager and will be able to help her. I told her that if she changed her mind at any time she could return immediately to the emergency department for further evaluation and admission. Otherwise she is urged to follow-up with Dr. Mabry tomorrow. She voiced understanding and was given an AMA form to sign. - Vital Signs Vital signs: Temp Pulse Resp BP Pulse Ox 98.8 F 73 21 H 147/81 H 93 09/11/19 13:41 09/11/19 13:37 09/11/19 13:37 09/11/19 13:37 09/11/19 13:37 - Laboratory Result Diagrams: 09/11/19 13:56 09/11/19 13:56 Laboratory results interpreted by me: 09/11/19 09/11/19 09/11/19 13:56 13:56 15:50 Plt Count 530 H Sodium 123.8 L Chloride 88 L BUN 45 H Creatinine 5.18 H Est GFR ( Amer) 10 L Est GFR (MDRD) Non-Af 8 L Calcium 12.4 H* AST 38 H Urine Protein 100 H Urine Glucose (UA) 50 H Urine Blood SMALL H - Diagnostic Test Radiology reviewed: Image reviewed, Reports reviewed Radiology results interpreted by me: 09/11/19 17:18 Chest X-Ray 09/11/19 00:00 IMPRESSION: Asymmetric nodular opacity overlying the left upper lobe. Possibly confluence of shadows. Focal pneumonia or pulmonary nodule are also possibilities. Recommend shallow obliques for further evaluation to see if this represents confluence of shadows or true parenchymal finding. Chest X-Ray 09/11/19 15:40 IMPRESSION: Healing posterior left rib fracture accounts for the asymmetric nodular opacity demonstrated on the earlier chest film. No other evaluation is needed. - EKG Interpretation by Me Additional EKG results interpreted by me: 09/11/19 17:18 Sinus mechanism with a rate of 83 bpm. Normal axis and intervals. No acute ST changes concerning for ischemia or infarction. Discharge - Discharge Clinical Impression: Nausea and vomiting, Hypercalcemia, Hyponatremia Condition: Stable Disposition: ADMITTED INPATIENT Admitting Provider: Anoop (Hospitalist) - ON AIR HOST [facility] Unit Admitted: Telemetry Instructions: Vomiting ([facility]), Hyponatremia ([facility]) Additional Instructions: Your kidney failure is worse. Your sodium is very low. Your potassium is very high. All of these are very dangerous. You are risking seizures, neurological deficits, cardiac arrest, and by leaving the hospital AGAINST MEDICAL ADVICE. Please return at any point if you change your mind regarding admission or further evaluation. Otherwise, please call Dr. Mabry's office tomorrow morning for follow-up appointment as soon as possible. Referrals: SHARON RICK PA-C [Primary Care Provider] - Follow up as needed
--- NOTE | 2019-09-11 16:15 | RADIOLOGY REPORT (SQ) ---
EXAM DESCRIPTION: CHEST 2 VIEWS IMAGES COMPLETED DATE/TIME: 09/11/2019 4:04 pm REASON FOR STUDY: smoker, weakness, hypercalcemia COMPARISON: Earlier the same day. EXAM PARAMETERS: NUMBER OF VIEWS: two views TECHNIQUE: Frontal right and left oblique al radiographic views of the chest acquired. RADIATION DOSE: NA LIMITATIONS: none FINDINGS: Small nodular density described on earlier film represents a healing posterior rib fractur e. No further workup is needed. IMPRESSION: Healing posterior left rib fracture accounts for the asymmetric nodular opacity demonstr ated on the earlier chest film. No other evaluation is needed. TECHNICAL DOCUMENTATION: JOB ID: [id number] 2010 [employer]- All Rights Reserved Reading location - IP/workstation name: [email or web address]
[2019-09-11 16:34] LABS: APPEARANCE,URINE CLEAR; BILIRUBIN,URINE NEGATIVE (NEGATIVE); COLOR,URINE YELLOW; GLUCOSE, URINE 50 mg/dL (NEGATIVE); KETONES,URINE NEGATIVE (NEGATIVE); LEUKOCYTE ESTERASE,URINE NEGATIVE (NEGATIVE); NITRITE,URINE NEGATIVE (NEGATIVE); PROTEIN,URINE 100 mg/dL (NEGATIVE); URINE SPECIFIC GRAVITY 1.006; UROBILINOGEN,URINE NEGATIVE mg/dL (<2.0)
--- NOTE | 2019-09-12 14:24 | EKG REPORT ---
SEVERITY:- BORDERLINE ECG - SINUS RHYTHM PROBABLE LEFT ATRIAL ABNORMALITY : Confirmed by: Deyvi Ramos MD 12-Sep-2019 14:23:44
== END 2019-09-11 17:57 | disposition left against medical advice (07) ==
LOC: ER 13:14
DX: R11.2 Nausea with vomiting, unspecified (principal); E83.52 Hypercalcemia; E87.1 Hypo-osmolality and hyponatremia; R53.1 Weakness; F17.200 Nicotine dependence, unspecified, uncomplicated; F12.10 Cannabis abuse, uncomplicated; I25.10 Atherosclerotic heart disease of native coronary artery without angina pectoris; E11.9 Type 2 diabetes mellitus without complications; I10 Essential (primary) hypertension; J44.9 Chronic obstructive pulmonary disease, unspecified
CPT/HCPCS: 93005; 99284; 96360; 96361; 36415; 85025; 80053; 81001; 71046; 71045; 93010; J7030

== ENCOUNTER 2019-09-15 16:17 | Emergency (ER) | payer BC, MEDICAID ==
--- NOTE | 2019-09-15 16:51 | ER Document Report ---
ED Medical Screen (RME) - General Chief Complaint: abnormal labs Stated Complaint: CHEST PAINS Time Seen by Provider: 09/15/19 16:43 Primary Care Provider: SHARON RICK PA-C [Primary Care Provider] - Follow up as needed Mode of Arrival: Wheelchair Information source: Patient Notes: 64-year-old female sent to ED by Dr. Boyer at nephrology for hyponatremia and her calcium Florinda. She is stage IV kidney failure. She does have a history of breast cancer lymphoma thyroid cancer COPD high blood pressure and diabetes. states her calcium is getting higher and higher and he wanted her seen at the emergency room. She does smoke a pack a day as even with a history of COPD. states the tv technician called her and told her to come to the emergency room. She has had a thyroidectomy and a left mastectomy. Patient states the mastectomy was over 20 years ago and the use that arm for blood now I have greeted and performed a rapid initial assessment of this patient. A comprehensive ED assessment and evaluation of the patient, analysis of test results and completion of medical decision making process will be conducted by an additional ED providers. TRAVEL OUTSIDE OF THE [place] IN LAST 30 DAYS: No - Related Data Allergies/Adverse Reactions: codeine Allergy (Verified 02/10/19 10:42) Itching latex Allergy (Verified 02/10/19 10:42) Hives liothyronine [From Cytomel] Allergy (Verified 02/10/19 10:42) Shortness of Breath morphine [Morphine] Allergy (Verified 02/10/19 10:42) Itching nalbuphine [From Nubain] Allergy (Verified 02/10/19 10:42) Itching hydrocodone Adverse Reaction (Mild, Verified 02/10/19 10:42) Rash plastic tape Allergy (Uncoded 02/10/19 10:42) Itching Home Medications: patient states she takes a lot and cant remember the names Past Medical History - Past Medical History Cardiac Medical History: Reports: Hx Coronary Artery Disease, Hx Hypercholesterolemia, Hx Hypertension, Hx Pulmonary Embolism Denies: Hx Heart Attack Pulmonary Medical History: Reports: Hx Asthma, Hx Bronchitis, Hx COPD, Hx Pneumonia, Hx Sleep Apnea Denies: Hx Tuberculosis Neurological Medical History: Reports: Hx Cerebrovascular Accident - Weakness Rt Leg, uses cane. Denies: Hx Seizures Endocrine Medical History: Reports: Hx Diabetes Mellitus Type 2 - Is [address] way with the health is going on out there, Hx Hypothyroidism Renal/ Medical History: Reports: Hx Renal Insufficiency. Denies: Hx Peritoneal Dialysis Malignancy Medical History: Reports: Hx Breast Cancer GI Medical History: Reports: Hx Gastroesophageal Reflux Disease Musculoskeltal Medical History: Reports Hx Arthritis Psychiatric Medical History: Reports: Hx Bipolar Disorder, Hx Depression Past Surgical History: Reports: Hx Appendectomy, Hx Cardiac Catheterization - stent x 1, Hx Cholecystectomy, Hx Coronary Stent, Hx Mastectomy - left side, pt states many years ago, Hx Thyroid Surgery - thyroid removal - Immunizations Hx Diphtheria, Pertussis, Tetanus Vaccination: Yes Physical Exam - Vital signs Vitals: Temp Pulse Resp BP Pulse Ox 98.1 F 68 24 H 138/80 H 97 09/15/19 16:30 09/15/19 16:30 09/15/19 16:30 09/15/19 16:30 09/15/19 16:30 Course - Vital Signs Vital signs: Temp Pulse Resp BP Pulse Ox 98.1 F 68 24 H 138/80 H 97 09/15/19 16:30 09/15/19 16:30 09/15/19 16:30 09/15/19 16:30 09/15/19 16:30 Doctor's Discharge - Discharge Referrals: SHARON RICK PA-C [Primary Care Provider] - Follow up as needed
[2019-09-15] MEDS ORDERED: NORMAL SALINE 1000 ML 1,000 ML IV ONE ×2 (17:22→20:03)
--- NOTE | 2019-09-15 17:29 | EKG REPORT ---
SEVERITY:- BORDERLINE ECG - SINUS RHYTHM : Confirmed by: Deyvi Ramos MD 15-Sep-2019 17:28:01
[2019-09-15 18:52] LABS: ABSOLUTE BASOPHILS # (AUTO) 0.1 10^3/uL (0.0-0.2); ABSOLUTE EOSINOPHILS # (AUTO) 0.1 10^3/uL (0.0-0.6); ABSOLUTE LYMPHOCYTES (AUTO) 2.4 10^3/uL (0.5-4.7); ABSOLUTE MONOCYTES (AUTO) 0.6 10^3/uL (0.1-1.4); ABSOLUTE NEUT (AUTO) 7.5 10^3/uL (1.7-8.2); BASOPHILS % (AUTO) 0.8 % (0-2); EOSINOPHILS % (AUTO) 1.2 % (0-6); HEMATOCRIT 38.2 % (36.0-47.0); HEMOGLOBIN 13.4 g/dL (12.0-15.5); LYMPHOCYTES % (AUTO) 22.3 % (13-45); MEAN CORPUSCULAR HEMOGLOBIN 32.3 pg (27.0-33.4); MEAN CORPUSCULAR HGB CONC 35.2 g/dL (32.0-36.0); MEAN CORPUSCULAR VOLUME 92 fl (80-97); MONOCYTES % (AUTO) 5.5 % (3-13); PLATELET COUNT 496 10^3/uL (150-450); RED BLOOD COUNT 4.16 10^6/uL (3.72-5.28); RED CELL DISTRIBUTION WIDTH 14.1 % (11.5-14.0); SEGMENTED NEUTROPHILS % (AUTO) 70.2 % (42-78); TOTAL CELLS COUNTED % (AUTO) 100 %; WHITE BLOOD COUNT 10.7 10^3/uL (4.0-10.5)
[2019-09-15 19:14] LABS: ALBUMIN 4.4 g/dL (3.5-5.0); ALKALINE PHOSPHATASE 76 U/L (38-126); ANION GAP 10 (5-19); ASPARTATE AMINO TRANSFERASE 70 U/L (14-36); BILIRUBIN,DIRECT 0.4 mg/dL (0.0-0.4); BILIRUBIN,TOTAL 0.8 mg/dL (0.2-1.3); BLOOD UREA NITROGEN 46 mg/dL (7-20); CARBON DIOXIDE 25 mmol/L (22-30); CHLORIDE 89 mmol/L (98-107); GLUCOSE 87 mg/dL (75-110); POTASSIUM 4.3 mmol/L (3.6-5.0); TOTAL PROTEIN 7.3 g/dL (6.3-8.2)
[2019-09-15 19:25] LABS: CALCIUM 13.3 mg/dL (8.4-10.2)
--- NOTE | 2019-09-15 19:32 | ER Document Report ---
ED General - General Chief Complaint: abnormal labs Stated Complaint: CHEST PAINS Time Seen by Provider: 09/15/19 16:43 Primary Care Provider: SHARON RICK PA-C [Primary Care Provider] - Follow up as needed Mode of Arrival: Wheelchair TRAVEL OUTSIDE OF THE [place] IN LAST 30 DAYS: No - HPI Notes: Patient is a 64-year-old female who presents to the emergency department for evaluation. I had the pleasure of meeting this patient a few days ago, when she was found to have significant hyper calcium Florinda. She had acute on chronic renal failure. I consulted with Dr. Mabry, who asked that she have IV fluids administered. The patient decided to leave AGAINST MEDICAL ADVICE. She did follow-up, had labs repeated, her calcium was higher. She was convinced to go to the ED for further evaluation. The patient also states that since then she has been having some chest tightness. She states is primarily when she lays down at night, but it also sometimes happens with exertion. She continues to have episodic nausea and vomiting. She states she is vomited 3 or 4 times in the last 24 hours. It is been nonbloody, nonbilious. She is still urinating, states she urinated 3 times today. Diminished appetite. She denies any pain at this time. - Related Data Allergies/Adverse Reactions: codeine Allergy (Verified 09/15/19 20:17) Itching latex Allergy (Verified 09/15/19 20:17) Hives liothyronine [From Cytomel] Allergy (Verified 09/15/19 20:17) Shortness of Breath morphine [Morphine] Allergy (Verified 09/15/19 20:17) Itching nalbuphine [From Nubain] Allergy (Verified 09/15/19 20:17) Itching hydrocodone Adverse Reaction (Mild, Verified 09/15/19 20:17) Rash plastic tape Allergy (Uncoded 09/15/19 20:17) Itching Home Medications: patient states she takes a lot and cant remember the names Past Medical History - General Information source: Patient - Social History Smoking Status: Current Every Day Smoker Family History: Reviewed & Not Pertinent, CAD - Past Medical History Cardiac Medical History: Reports: Hx Coronary Artery Disease, Hx Hypercholesterolemia, Hx Hypertension, Hx Pulmonary Embolism Denies: Hx Heart Attack Pulmonary Medical History: Reports: Hx Asthma, Hx Bronchitis, Hx COPD, Hx Pneumonia, Hx Sleep Apnea Denies: Hx Tuberculosis Neurological Medical History: Reports: Hx Cerebrovascular Accident - Weakness Rt Leg, uses cane. Denies: Hx Seizures Endocrine Medical History: Reports: Hx Diabetes Mellitus Type 2 - Is the way with the health is going on out there, Hx Hypothyroidism Renal/ Medical History: Reports: Hx Renal Insufficiency. Denies: Hx Peritoneal Dialysis Malignancy Medical History: Reports: Hx Breast Cancer GI Medical History: Reports: Hx Gastroesophageal Reflux Disease Musculoskeletal Medical History: Reports Hx Arthritis Psychiatric Medical History: Reports: Hx Bipolar Disorder, Hx Depression Past Surgical History: Reports: Hx Appendectomy, Hx Cardiac Catheterization - stent x 1, Hx Cholecystectomy, Hx Coronary Stent, Hx Mastectomy - left side, pt states many years ago, Hx Thyroid Surgery - thyroid removal - Immunizations Hx Diphtheria, Pertussis, Tetanus Vaccination: Yes Hx Pneumococcal Vaccination: 11/29/16 Review of Systems - Review of Systems Constitutional: See HPI Cardiovascular: See HPI Gastrointestinal: See HPI -: Yes All other systems reviewed and negative Physical Exam - Vital signs Vitals: Temp Pulse Resp BP Pulse Ox 98.1 F 68 24 H 138/80 H 97 09/15/19 16:30 09/15/19 16:30 09/15/19 16:30 09/15/19 16:30 09/15/19 16:30 - Notes Notes: This is a 64-year-old female who appears older than her stated age, in no acute distress. Vital signs reviewed, please refer to chart. Head is normocephalic, atraumatic. Pupils equal round, reactive to light. Neck is supple without m eningismus. Heart is regular rate and rhythm. Lungs reveal scattered inspiratory and expiratory wheezes throughout. Abdomen is soft, nontender, normoactive bowel sounds throughout. Extremities without cyanosis, clubbing. Posterior calves are nontender. Peripheral pulses are equal. Skin is warm and dry. Patient is awake, alert, neurological exam is nonfocal. Course - Re-evaluation Re-evalutation: 09/15/19 19:32 Patient presents to the emergency department for evaluation. She complains of some intermittent chest pain, in addition to the nausea and vomiting, as well as abnormal labs. Laboratory investigations are ordered. IV fluids are ordered. Chest x-ray ordered to evaluate her chest pain. Awaiting further studies, we will continue to monitor. 09/15/19 22:19 Patient is markedly hypercalcemic. I ordered IV fluids as previously. I planned on calling medicine for admission, and the patient became again adamant that she wanted to leave. She started being verbally abusive with nursing. I went back in and evaluated the patient. Initially in her visit she had apologize, as were she would stay in the hospital. Once again she begins to swear at me. She states she will not stay. She states that were doing nothing but "drowning her in fluids." Once again she voiced understanding to the fact that she could have serious complications from her hypercalcemia. She does have capacity. She is alert and oriented. She understands that she could from this, still wishes to leave the department AGAINST MEDICAL ADVICE. She is told she can return if she changes her mind at any point. - Vital Signs Vital signs: Temp Pulse Resp BP Pulse Ox 98.1 F 68 16 148/77 H 94 09/15/19 16:30 09/15/19 16:30 09/15/19 22:01 09/15/19 22:01 09/15/19 22:01 - Laboratory Result Diagrams: 09/15/19 18:36 09/15/19 18:36 Laboratory results interpreted by me: 09/15/19 09/15/19 09/15/19 18:36 18:36 19:35 WBC 10.7 H RDW 14.1 H Plt Count 496 H Sodium 123.8 L Chloride 89 L BUN 46 H Creatinine 5.06 H Est GFR ( Amer) 10 L Est GFR (MDRD) Non-Af 9 L Calcium 13.3 H* AST 70 H ALT 37 H Urine Protein 100 H Urine Blood MODERATE H - Diagnostic Test Radiology reviewed: Reports reviewed Radiology results interpreted by me: 09/15/19 22:20 Chest X-Ray 09/15/19 19:27 IMPRESSION: No acute disease. copyright 2011 [facility] [employer]- All Rights Reserved - EKG Interpretation by Me Additional EKG results interpreted by me: 09/15/19 22:20 Sinus mechanism with rate of 65 bpm. Normal axis and intervals. No acute ST changes concerning for ischemia or infarction. Discharge - Discharge Clinical Impression: Hypercalcemia Chest pain Qualifiers: Chest pain type: unspecified Qualified Code(s): R07.9 - Chest pain, unspecified Disposition: AGAINST MEDICAL ADVICE Instructions: Chest Pain of Unclear Cause ([facility]) Additional Instructions: Again, it is been explained to you that you should be admitted to the hospital for elevated calcium, and further evaluation of your chest pain. You have elected to leave AGAINST MEDICAL ADVICE. You have voiced understanding to the fact that this is a potentially lethal condition, and you still choose to leave. Please return if you change your mind. Follow-up with your primary care provider and helicopter crew chief. Return to the emergency department with worsening or new concerning symptoms of any sort. Referrals: SHARON RICK PA-C [Primary Care Provider] - Follow up as needed
[2019-09-15 20:01] LABS: APPEARANCE,URINE CLEAR; BILIRUBIN,URINE NEGATIVE (NEGATIVE); COLOR,URINE STRAW; GLUCOSE, URINE NEGATIVE (NEGATIVE); KETONES,URINE NEGATIVE (NEGATIVE); LEUKOCYTE ESTERASE,URINE NEGATIVE (NEGATIVE); NITRITE,URINE NEGATIVE (NEGATIVE); PROTEIN,URINE 100 mg/dL (NEGATIVE); URINE SPECIFIC GRAVITY 1.004; UROBILINOGEN,URINE NEGATIVE mg/dL (<2.0)
--- NOTE | 2019-09-15 20:16 | RADIOLOGY REPORT (SQ) ---
EXAM DESCRIPTION: XR CHEST 1 VIEW COMPLETED DATE/TME: 09/15/2019 19:27 CLINICAL HISTORY: 64 years, Female, chest pain COMPARISON: Prior study from 09/11/2019 NUMBER OF VIEWS: One TECHNIQUE: Single frontal view of the chest was obtained portably LIMITATIONS: None. FINDINGS: Cardiac and mediastinal contours are stable. Asymmetrically increased density about the left mid lung zone is likely related to patient's left breast implant. Lungs are otherwise clear. No pleural effusion or pneumothorax. IMPRESSION: No acute disease. copyright 2010 [employer]- All Rights Reserved
[2019-09-15 22:45] VITALS: BP 148/77
== END 2019-09-15 22:57 | disposition left against medical advice (07) ==
LOC: ER 16:17
DX: E83.52 Hypercalcemia (principal); R07.9 Chest pain, unspecified; Z88.8 Allergy status to other drugs, medicaments and biological substances; R11.2 Nausea with vomiting, unspecified
CPT/HCPCS: 93005; 99284; 96360; 96361; 36415; 83735; 85025; 80053; 81001; 84484; 71045; 93010; J7030

== ENCOUNTER → 2019-09-15 | Outpatient (CLI) | payer BC, MEDICAID ==
[2019-09-15 15:11] LABS: APPEARANCE,URINE CLEAR; BILIRUBIN,URINE NEGATIVE (NEGATIVE); COLOR,URINE YELLOW; GLUCOSE, URINE 50 mg/dL (NEGATIVE); KETONES,URINE NEGATIVE (NEGATIVE); LEUKOCYTE ESTERASE,URINE NEGATIVE (NEGATIVE); NITRITE,URINE NEGATIVE (NEGATIVE); PROTEIN,URINE 100 mg/dL (NEGATIVE); URINE SPECIFIC GRAVITY 1.009; UROBILINOGEN,URINE NEGATIVE mg/dL (<2.0)
[2019-09-15 15:19] LABS: ALBUMIN 4.3 g/dL (3.5-5.0); ANION GAP 11 (5-19); BLOOD UREA NITROGEN 46 mg/dL (7-20); CARBON DIOXIDE 26 mmol/L (22-30); CHLORIDE 89 mmol/L (98-107); GLUCOSE 121 mg/dL (75-110); PHOSPHORUS 5.5 mg/dL (2.5-4.5); POTASSIUM 4.4 mmol/L (3.6-5.0)
[2019-09-15 15:29] LABS: CALCIUM 13.5 mg/dL (8.4-10.2)
[2019-09-15 15:33] LABS: URINE CREATININE 45.7 mg/dL (15-278); URINE SODIUM 33 mmol/L (30-90)
[2019-09-15 15:40] LABS: UR PRO/CREAT RATIO RESULT 5.7 mg/mg (0.0-0.2); URINE PROTEIN 259.3 mg/dL (<12)
[2019-09-15 16:29] LABS: OSMOLALITY,URINE 222 mOsm/kg (300-900)
== END ==
LOC: OD 14:21
PROVIDERS: ATTEND Physician Assistant Medical
DX: N18.5 Chronic kidney disease, stage 5 (principal); E87.1 Hypo-osmolality and hyponatremia
CPT/HCPCS: 36415; 80069; 81001; 82570; 83735; 83930; 83935; 83970; 84156; 84300

== ENCOUNTER → 2019-09-27 | Outpatient (CLI) | payer BC, MEDICAID ==
[2019-09-27 16:22] LABS: ABSOLUTE BASOPHILS # (AUTO) 0.1 10^3/uL (0.0-0.2); ABSOLUTE EOSINOPHILS # (AUTO) 0.1 10^3/uL (0.0-0.6); ABSOLUTE LYMPHOCYTES (AUTO) 2.1 10^3/uL (0.5-4.7); ABSOLUTE MONOCYTES (AUTO) 0.3 10^3/uL (0.1-1.4); BASOPHILS % (AUTO) 0.9 % (0-2); EOSINOPHILS % (AUTO) 0.9 % (0-6); HEMATOCRIT 37.2 % (36.0-47.0); HEMOGLOBIN 13.2 g/dL (12.0-15.5); LYMPHOCYTES % (AUTO) 21.6 % (13-45); MEAN CORPUSCULAR HEMOGLOBIN 32.3 pg (27.0-33.4); MEAN CORPUSCULAR HGB CONC 35.5 g/dL (32.0-36.0); MEAN CORPUSCULAR VOLUME 91 fl (80-97); MONOCYTES % (AUTO) 3.6 % (3-13); PLATELET COUNT 480 10^3/uL (150-450); RED BLOOD COUNT 4.08 10^6/uL (3.72-5.28); RED CELL DISTRIBUTION WIDTH 13.1 % (11.5-14.0); TOTAL CELLS COUNTED % (AUTO) 100 %; WHITE BLOOD COUNT 9.5 10^3/uL (4.0-10.5)
[2019-09-27 16:48] LABS: ANION GAP 12 (5-19); BLOOD UREA NITROGEN 57 mg/dL (7-20); CALCIUM 9.4 mg/dL (8.4-10.2); CARBON DIOXIDE 21 mmol/L (22-30); CHLORIDE 88 mmol/L (98-107); GLUCOSE 97 mg/dL (75-110); POTASSIUM 4.6 mmol/L (3.6-5.0)
== END ==
LOC: OD 14:37
PROVIDERS: ATTEND Physician Assistant Medical
DX: N18.5 Chronic kidney disease, stage 5 (principal); E83.42 Hypomagnesemia; E83.52 Hypercalcemia
CPT/HCPCS: 36415; 80048; 83735; 85025

== ENCOUNTER 2019-09-28 14:56 | Inpatient (IN) | payer BC, MEDICAID ==
--- NOTE | 2019-09-28 15:15 | ER Document Report ---
ED Medical Screen (RME) - General Chief Complaint: Abdominal Pain Stated Complaint: ABDOMINAL PAIN,WEAKNESS Time Seen by Provider: 09/28/19 15:06 Primary Care Provider: SHARON RICK PA-C [Primary Care Provider] - Follow up as needed Mode of Arrival: Wheelchair Information source: Patient Notes: Patient is a 64-year-old female returns to the emergency room with complaint of generalized weakness abdominal pain nausea and vomiting. Patient has been seen here on September 10, , . She is back today with continued complaint of increasing weakness nausea vomiting and inability to urinate. Patient states she has left a couple times from the hospital AGAINST MEDICAL ADVICE because she felt better but now she is 100% certain that she needs help. She states that she will not leave AMA again. Physical examination: Patient is a frail-appearing 64-year-old female who also appears much older than her stated age. She appears in no distress at this time but does appear uncomfortable. Cardiac: Currently patient displays a regular rate and rhythm without any murmurs. Lungs: Bilateral breath sounds decreased throughout faint inspiratory expiratory wheeze noted. No rhonchi or rales are heard. Abdomen: Bowel sounds are present all 4 quads in a sitting position patient has no tenderness to palpation. There is no distention or tympany on examination again in triage in a sitting position. Lower extremities: No edema noted at this time. I have greeted and performed a rapid initial assessment of this patient. A comprehensive ED assessment and evaluation of the patient, analysis of test results and completion of the medical decision making process will be conducted by additional ED providers. Dictation of this chart was performed using voice recognition software; therefore, there may be some unintended grammatical errors. TRAVEL OUTSIDE OF THE [place] IN LAST 30 DAYS: No - Related Data Allergies/Adverse Reactions: codeine Allergy (Verified 09/28/19 15:05) Itching latex Allergy (Verified 09/28/19 15:05) Hives liothyronine [From Cytomel] Allergy (Verified 09/28/19 15:05) Shortness of Breath morphine [Morphine] Allergy (Verified 09/28/19 15:05) Itching nalbuphine [From Nubain] Allergy (Verified 09/28/19 15:05) Itching hydrocodone Adverse Reaction (Mild, Verified 09/28/19 15:05) Rash plastic tape Allergy (Uncoded 09/28/19 15:05) Itching Past Medical History - Past Medical History Cardiac Medical History: Reports: Hx Coronary Artery Disease, Hx Hypercholesterolemia, Hx Hypertension, Hx Pulmonary Embolism Denies: Hx Heart Attack Pulmonary Medical History: Reports: Hx Asthma, Hx Bronchitis, Hx COPD, Hx Pneumonia, Hx Sleep Apnea Denies: Hx Tuberculosis Neurological Medical History: Reports: Hx Cerebrovascular Accident - Weakness Rt Leg, uses cane. Denies: Hx Seizures Endocrine Medical History: Reports: Hx Diabetes Mellitus Type 2 - Is [address] way with the health is going on out there, Hx Hypothyroidism Renal/ Medical History: Reports: Hx Renal Insufficiency. Denies: Hx Peritoneal Dialysis Malignancy Medical History: Reports: Hx Breast Cancer GI Medical History: Reports: Hx Gastroesophageal Reflux Disease Musculoskeltal Medical History: Reports Hx Arthritis Psychiatric Medical History: Reports: Hx Bipolar Disorder, Hx Depression Past Surgical History: Reports: Hx Appendectomy, Hx Cardiac Catheterization - stent x 1, Hx Cholecystectomy, Hx Coronary Stent, Hx Mastectomy - left side, pt states many years ago, Hx Thyroid Surgery - thyroid removal - Immunizations Hx Diphtheria, Pertussis, Tetanus Vaccination: Yes Physical Exam - Vital signs Vitals: Temp Pulse Resp BP Pulse Ox 98.3 F 71 20 109/70 99 09/28/19 15:09/28/19 15:09/28/19 15:01 09/28/19 15:01 09/28/19 15:01 Course - Vital Signs Vital signs: Temp Pulse Resp BP Pulse Ox 98.3 F 71 20 109/70 99 09/28/19 15:09/28/19 15:01 09/28/19 15:09/28/19 15:01 09/28/19 15:01 Doctor's Discharge - Discharge Referrals: SHARON RICK PA-C [Primary Care Provider] - Follow up as needed
[2019-09-28 15:54] LABS: ABSOLUTE BASOPHILS # (AUTO) 0.1 10^3/uL (0.0-0.2); ABSOLUTE EOSINOPHILS # (AUTO) 0.1 10^3/uL (0.0-0.6); ABSOLUTE MONOCYTES (AUTO) 0.6 10^3/uL (0.1-1.4); ABSOLUTE NEUT (AUTO) 6.8 10^3/uL (1.7-8.2); BASOPHILS % (AUTO) 0.9 % (0-2); EOSINOPHILS % (AUTO) 0.7 % (0-6); HEMATOCRIT 37.8 % (36.0-47.0); HEMOGLOBIN 13.2 g/dL (12.0-15.5); LYMPHOCYTES % (AUTO) 21.3 % (13-45); MEAN CORPUSCULAR HEMOGLOBIN 31.9 pg (27.0-33.4); MEAN CORPUSCULAR HGB CONC 34.9 g/dL (32.0-36.0); MEAN CORPUSCULAR VOLUME 91 fl (80-97); MONOCYTES % (AUTO) 6.2 % (3-13); PLATELET COUNT 488 10^3/uL (150-450); RED BLOOD COUNT 4.15 10^6/uL (3.72-5.28); RED CELL DISTRIBUTION WIDTH 13.1 % (11.5-14.0); SEGMENTED NEUTROPHILS % (AUTO) 70.9 % (42-78); TOTAL CELLS COUNTED % (AUTO) 100 %; WHITE BLOOD COUNT 9.5 10^3/uL (4.0-10.5)
[2019-09-28 16:01] LABS: APPEARANCE,URINE CLEAR; BILIRUBIN,URINE NEGATIVE (NEGATIVE); COLOR,URINE YELLOW; GLUCOSE, URINE NEGATIVE (NEGATIVE); KETONES,URINE NEGATIVE (NEGATIVE); LEUKOCYTE ESTERASE,URINE NEGATIVE (NEGATIVE); NITRITE,URINE NEGATIVE (NEGATIVE); PROTEIN,URINE 100 mg/dL (NEGATIVE); URINE SPECIFIC GRAVITY 1.008; UROBILINOGEN,URINE NEGATIVE mg/dL (<2.0)
[2019-09-28 16:12] LABS: ALBUMIN 4.5 g/dL (3.5-5.0); ALKALINE PHOSPHATASE 79 U/L (38-126); ANION GAP 11 (5-19); ASPARTATE AMINO TRANSFERASE 39 U/L (14-36); BILIRUBIN,DIRECT 0.3 mg/dL (0.0-0.4); BILIRUBIN,TOTAL 0.6 mg/dL (0.2-1.3); BLOOD UREA NITROGEN 61 mg/dL (7-20); CALCIUM 9.2 mg/dL (8.4-10.2); CARBON DIOXIDE 21 mmol/L (22-30); CHLORIDE 91 mmol/L (98-107); GLUCOSE 80 mg/dL (75-110); POTASSIUM 4.6 mmol/L (3.6-5.0); TOTAL PROTEIN 7.3 g/dL (6.3-8.2)
--- NOTE | 2019-09-28 16:15 | RADIOLOGY REPORT (SQ) ---
EXAM DESCRIPTION: CHEST SINGLE VIEW IMAGES COMPLETED DATE/TIME: 09/28/2019 3:56 pm REASON FOR STUDY: SOB COMPARISON: 09/15/2019 and 09/11/2019 EXAM PARAMETERS: NUMBER OF VIEWS: One view. TECHNIQUE: Single frontal radiographic view of the chest acquired. RADIATION DOSE: NA LIMITATIONS: None. FINDINGS: LUNGS AND PLEURA: Stable pulmonary exam without new focal consolidation, pleural effusion, or pneumothorax. MEDIASTINUM AND HILAR STRUCTURES: No masses. Contour normal. HEART AND VASCULAR STRUCTURES: Heart normal in size. Normal vasculature. BONES: Subacute left 6th rib and 7th rib fractures. HARDWARE: None in the chest. OTHER: No other significant finding. IMPRESSION: No evidence of acute cardiopulmonary abnormality. TECHNICAL DOCUMENTATION: JOB ID: [id number] 2010 [employer] All Rights Reserved Reading location - IP/workstation name: [email or web address]
--- NOTE | 2019-09-28 17:54 | ER Document Report ---
ED General - General Chief Complaint: Inability to Void Stated Complaint: ABDOMINAL PAIN,WEAKNESS Time Seen by Provider: 09/28/19 15:06 Primary Care Provider: SHARON RICK PA-C [Primary Care Provider] - Follow up as needed Mode of Arrival: Wheelchair Information source: Patient Notes: Dr Edmonds notes 10 September ED General - General Chief Complaint: Nausea/Vomiting Stated Complaint: NAUSEA,VOMITING Time Seen by Provider: 09/11/19 15:19 Primary Care Provider: SHARON RICK PA-C [Primary Care Provider] - Follow up as needed TRAVEL OUTSIDE OF THE [place] IN LAST 30 DAYS: No - HPI Notes: Patient is a 64-year-old female who presents to the emergency department for evaluation of increased nausea and vomiting. She states this has been ongoing for the last month or 2. She states she is vomited at least daily. She states she is vomited at least 4-5 times today. She really states she is not keeping down any fluids. She feels extremely weak. She states her last urination was nearly 9 hours ago. She denies any pain. She denies any significant shortness of breath, states she is at about baseline. She does continue to smoke. The patient has a history of chronic kidney disease, states she is not currently on dialysis. She states she is taking her medications as prescribed, but only has some of her medications with her, and is unable to identify what most of them are. - Related Data Allergies/Adverse Reactions: codeine Allergy (Verified 02/10/19 10:42) Itching latex Allergy (Verified 02/10/19 10:42) Hives liothyronine [From Cytomel] Allergy (Verified 02/10/19 10:42) Shortness of Breath morphine [Morphine] Allergy (Verified 02/10/19 10:42) Itching nalbuphine [From Nubain] Allergy (Verified 02/10/19 10:42) Itching hydrocodone Adverse Reaction (Mild, Verified 02/10/19 10:42) Rash plastic tape Allergy (Uncoded 02/10/19 10:42) Itching Past Medical History - General Information source: Patient - Social History Smoking Status: Current Every Day Smoker Drug Abuse: Marijuana Family History: CAD Patient has homicidal ideation: No - Past Medical History Cardiac Medical History: Reports: Hx Coronary Artery Disease, Hx Hypercholesterolemia, Hx Hypertension, Hx Pulmonary Embolism Denies: Hx Heart Attack Pulmonary Medical History: Reports: Hx Asthma, Hx Bronchitis, Hx COPD, Hx Pneumonia, Hx Sleep Apnea Denies: Hx Tuberculosis Neurological Medical History: Reports: Hx Cerebrovascular Accident - Weakness Rt Leg, uses cane. Denies: Hx Seizures Endocrine Medical History: Reports: Hx Diabetes Mellitus Type 2 - Is the way with the health is going on out there, Hx Hypothyroidism Renal/ Medical History: Reports: Hx Renal Insufficiency. Denies: Hx Peritoneal Dialysis Malignancy Medical History: Reports: Hx Breast Cancer GI Medical History: Reports: Hx Gastroesophageal Reflux Disease Musculoskeletal Medical History: Reports Hx Arthritis Psychiatric Medical History: Reports: Hx Bipolar Disorder, Hx Depression Past Surgical History: Reports: Hx Appendectomy, Hx Cardiac Catheterization - stent x 1, Hx Cholecystectomy, Hx Coronary Stent, Hx Mastectomy - left side, pt states many years ago, Hx Thyroid Surgery - thyroid removal - Immunizations Hx Diphtheria, Pertussis, Tetanus Vaccination: Yes Hx Pneumococcal Vaccination: 11/29/16 Review of Systems - Review of Systems Constitutional: See HPI Gastrointestinal: See HPI Genitourinary: See HPI -: Yes All other systems reviewed and negative Physical Exam - Vital signs Vitals: Temp Pulse Resp BP Pulse Ox 98.8 F 73 21 H 147/81 H 93 09/11/19 13:37 09/11/19 13:37 09/11/19 13:37 09/11/19 13:37 09/11/19 13:37 - Notes Notes: This is a 64-year-old female who appears older than her stated age, no acute distress. Vital signs reviewed, please refer to chart. Head is normocephalic, atraumatic. Pupils equal round, reactive to light. Neck is supple without m eningismus. Heart is regular rate and rhythm. Lungs reveal inspiratory and expiratory wheezes throughout. Abdomen is soft, nontender, normoactive bowel sounds throughout. Extremities without cyanosis, clubbing. Posterior calves are nontender. Peripheral pulses are equal. Skin is warm and dry. Patient is awake, alert, no gross facial asymmetry. She moves all 4 extremities spontaneously. Course - Re-evaluation Re-evalutation: 09/11/19 15:43 Patient presents to the emergency department for evaluation. She had laboratory investigations as ordered according to protocol. Laboratory investigation showed significant acute on chronic renal failure as well as hypercalcemia. In this patient with chronic renal failure, certainly that may be the primary etiology, but the patient also has had a long-term history of smoking, I cannot rule out the possibility of malignancy. Patient is given a liter of IV fluids. EKG is ordered. Chest x-ray ordered to evaluate for any possible lung mass. Awaiting urinalysis. Will continue to monitor. 09/11/19 17:18 Chest x-ray unremarkable, it is a healing posterior rib fracture causing any abnormality noted there. Her fluids are tolerated well. I spoke with Dr. Mabry who agrees with admission. He asked that the patient's fluids be continued at 150 cc an hour, and he will see the patient in consultation. Awaiting discussion with medicine. 09/11/19 17:24 Patient accepted by medicine. He will be seen by MELANIE Childers, Dr. Davalos admitting. 09/11/19 17:55 I was notified by nursing that patient wants to leave AGAINST MEDICAL ADVICE. I went over to talk to the patient. She states she was aggravated that she was not going to get a bed immediately. I told her we would make this happen as quickly as possible. I talked to her at length about the significant risks asso ciated with hyponatremia and hypercalcemia, including but not limited to seizures, cardiac arrest, resultant neurological deficits and . She voiced understanding to all of this. She states she still wants to leave. 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 I told her that if she changed her mind at any time she could return immediately to the emergency department for further evaluation and admission. Otherwise she is urged to follow-up with Dr. Mabry tomorrow. She voiced understanding and was given an AMA form to sign. 09/28/19 15:16 - Nursing Note by LES MARTIN Acct Num: [id number] : 1955 Patient Age: 64 c/o decreased urine output, pt was sent to ED from PCP [facility] office for further evaluation and tx, pt reports she has had decreased urine output for 2 months with decreased BM, pt reports LBM > 1 wk, pt has been seen for complaint several times before with pt signing out AMA. pt reports decreased appetite and inability to eat due to chronic N/V. pt denies pain though states generalized body weakness, Mohit KANG assessing complaint and discussing continued POC with pt atient Name: CRISTIANE LOVE Date of : 1955 Patient Status: Emergency Emergency Provider: ALIREZA MARTINEZ Date: 09/28/19 15:14 Initialization Date: 09/28/19 15:14 ED Medical Screen (RME) - General Chief Complaint: Abdominal Pain Stated Complaint: ABDOMINAL PAIN,WEAKNESS Time Seen by Provider: 09/28/19 15:06 Primary Care Provider: SHARON RICK PA-C [Primary Care Provider] - Follow up as needed Mode of Arrival: Wheelchair Information source: Patient Notes: Patient is a 64-year-old female returns to the emergency room with complaint of generalized weakness abdominal pain nausea and vomiting. Patient has been seen here on September 10, , . She is back today with continued complaint of increasing weakness nausea vomiting and inability to urinate. Patient states she has left a couple times from the hospital AGAINST MEDICAL ADVICE because she felt better but now she is 100% certain that she needs help. She states that she will not leave AMA again. Physical examination: Patient is a frail-appearing 64-year-old female who also appears much older than her stated age. She appears in no distress at this time but does appear uncomfortable. Cardiac: Currently patient displays a regular rate and rhythm without any murmurs. Lungs: Bilateral breath sounds decreased throughout faint inspiratory expiratory wheeze noted. No rhonchi or rales are heard. Abdomen: Bowel sounds are present all 4 quads in a sitting position patient has no tenderness to palpation. There is no distention or tympany on examination again in triage in a sitting position. Lower extremities: No edema noted at this time. my notes 64-year-old female arrives from personal physician's office where patient reports she is had decreased urinary output for 2 months with decreased appetite and 16 pound weight loss. She reports she has chronic nausea and vomiting and generalized body aches. This is the fifth visit this month for similar symptoms. All visits report a low sodium in the low 20s this month. Her sodium was 122 today. She has been seen at least monthly in the ER since late last year. Patient was given 2 cans of [place] tomato sauce which have a high amount of sodium in order for her to drink after she was given Zofran 4 mg IV. Please note the past she was noted to be a marijuana user. We will check her UDS today. This may be a case of hyperemesis secondary to cannabis. TRAVEL OUTSIDE OF THE [place] IN LAST 30 DAYS: No - HPI Onset: Other - x 2 months Onset/Duration: Sudden, Persistent, Worse Quality of pain: Achy Severity: Mild Pain Level: 1 Associated symptoms: Nausea, Vomiting, Weakness, Other - weight loss Exacerbated by: Food Relieved by: Denies Similar symptoms previously: Yes Recently seen / treated by doctor: Yes - Related Data Allergies/Adverse Reactions: codeine Allergy (Verified 09/28/19 15:05) Itching latex Allergy (Verified 09/28/19 15:05) Hives liothyronine [From Cytomel] Allergy (Verified 09/28/19 15:05) Shortness of Breath morphine [Morphine] Allergy (Verified 09/28/19 15:05) Itching nalbuphine [From Nubain] Allergy (Verified 09/28/19 15:05) Itching hydrocodone Adverse Reaction (Mild, Verified 09/28/19 15:05) Rash plastic tape Allergy (Uncoded 09/28/19 15:05) Itching Past Medical History - General Information source: Patient - Social History Smoking Status: Current Every Day Smoker Cigarette use (# per day): Yes Chew tobacco use (# tins/day): No Smoking Education Provided: Yes Frequency of alcohol use: None Drug Abuse: None Family History: Reviewed & Not Pertinent, CAD Patient has suicidal ideation: No Patient has homicidal ideation: No - Past Medical History Cardiac Medical History: Reports: Hx Coronary Artery Disease, Hx Hypercholesterolemia, Hx Hypertension, Hx Pulmonary Embolism Denies: Hx Heart Attack Pulmonary Medical History: Reports: Hx Asthma, Hx Bronchitis, Hx COPD, Hx Pneumonia, Hx Sleep Apnea Denies: Hx Tuberculosis Neurological Medical History: Reports: Hx Cerebrovascular Accident - Weakness Rt Leg, uses cane. Denies: Hx Seizures Endocrine Medical History: Reports: Hx Diabetes Mellitus Type 2 - Is the way with the health is going on out there, Hx Hypothyroidism Renal/ Medical History: Reports: Hx Renal Insufficiency. Denies: Hx Peritone al Dialysis Malignancy Medical History: Reports: Hx Breast Cancer GI Medical History: Reports: Hx Gastroesophageal Reflux Disease Musculoskeletal Medical History: Reports Hx Arthritis Psychiatric Medical History: Reports: Hx Bipolar Disorder, Hx Depression Past Surgical History: Reports: Hx Appendectomy, Hx Cardiac Catheterization - stent x 1, Hx Cholecystectomy, Hx Coronary Stent, Hx Mastectomy - left side, pt states many years ago, Hx Thyroid Surgery - thyroid removal - Immunizations Hx Diphtheria, Pertussis, Tetanus Vaccination: Yes Hx Pneumococcal Vaccination: 11/29/16 Review of Systems - Review of Systems Constitutional: No symptoms reported, Weakness, Weight loss EENT: No symptoms reported Cardiovascular: No symptoms reported Respiratory: No symptoms reported Gastrointestinal: See HPI, Abdominal pain, Nausea, Vomiting Genitourinary: No symptoms reported Female Genitourinary: No symptoms reported Musculoskeletal: No symptoms reported Skin: No symptoms reported Hematologic/Lymphatic: No symptoms reported Neurological/Psychological: See HPI, Weakness Physical Exam - Vital signs Vitals: Temp Pulse Resp BP Pulse Ox 98.3 F 71 20 109/70 99 09/28/19 15:01 09/28/19 15:09/28/19 15:09/28/19 15:01 09/28/19 15:01 Interpretation: Hypotensive - HEENT Head: Normocephalic, Atraumatic Eyes: Normal Pupils: PERRL Sinus: Normal Nasal: Normal Mouth/Lips: Normal Pharynx: Normal Neck: Normal - Respiratory Respiratory status: No respiratory distress Chest status: Nontender Breath sounds: Normal Chest palpation: Normal - Cardiovascular Rhythm: Regular Heart sounds: Normal auscultation Murmur: No - Abdominal Inspection: Normal Distension: No distension Bowel sounds: Hypoactive Tenderness: Nontender Organomegaly: No organomegaly - Rectal Hemorrhoids: Other - deferred - Genitourinary Bimanuel exam: Other - deferred - Back Back: Normal - Extremities General upper extremity: Normal inspection General lower extremity: Normal inspection - Neurological Neuro grossly intact: Yes Cognition: Normal Orientation: AAOx4 Vickery Coma Scale Eye Opening: Spontaneous Theresa Coma Scale Verbal: Oriented Theresa Coma Scale Motor: Obeys Commands Vickery Coma Scale Total: 15 Speech: Normal Motor strength normal: LUE, RUE, LLE, RLE Sensory: Normal - Psychological Associated symptoms: Normal affect - Skin Skin Temperature: Warm Skin Moisture: Dry Skin Turgor: Tenting Course - Vital Signs Vital signs: Temp Pulse Resp BP Pulse Ox 98.3 F 71 20 109/70 99 09/28/19 15:01 09/28/19 15:01 09/28/19 15:01 09/28/19 15:01 09/28/19 15:01 - Laboratory Result Diagrams: 09/28/19 15:30 09/28/19 15:30 Laboratory results interpreted by me: 09/28/19 09/28/19 09/28/19 15:30 15:30 15:30 Plt Count 488 H Sodium 122.9 L Chloride 91 L Carbon Dioxide 21 L BUN 61 H Creatinine 4.71 H Est GFR ( Amer) 11 L Est GFR (MDRD) Non-Af 9 L AST 39 H Urine Protein 100 H Urine Blood SMALL H - Diagnostic Test Radiology reviewed: Reports reviewed Radiology results interpreted by me: 09/28/19 19:54 Chest x-ray NAD but CT reveals enteritis. Critical Care Note - Critical Care Note Comments: Patient tolerated pretzels and samples tomato sauce high sodium and also cheese nips and saltine crackers well by nursing staff. Discharge - Discharge Clinical Impression: Enteritis, Weight loss, Hyponatremia, Chronic renal insufficiency, stage III (moderate) Nausea & vomiting Qualifiers: Vomiting type: unspecified Vomiting Intractability: unspecified Qualified Code(s): R11.2 - Nausea with vomiting, unspecified Clinical Impression: (Ruled Out): CKD (chronic kidney disease) stage 3, GFR 30-59 ml/min Condition: Fair Disposition: HOME, SELF-CARE Additional Instructions: Encourage rice and pretzels and [place] fries and cheese nips or anything salty for the next 4 to 5 days. Return to ER as needed take medicines as directed encourage fluids up to three fourths of a quart of fluid per day. Prescriptions: Ciprofloxacin HCl [Cipro 500 mg Tablet] 500 mg PO BID #20 tablet Referrals: SHARON RICK PA-C [Primary Care Provider] - Follow up as needed
[2019-09-28] MEDS ORDERED: NORMAL SALINE 250 ML IV ONE (18:05)
[2019-09-28] MEDS ORDERED: KETOROLAC TROMETHAMINE INJ/PF 30 MG/1 ML SDV IV ONE (18:06)
[2019-09-28] MEDS ORDERED: ONDANSETRON HCL INJ/PF 4 MG/2 ML SDV IV ONE (18:06)
--- NOTE | 2019-09-28 19:07 | RADIOLOGY REPORT (SQ) ---
EXAM DESCRIPTION: CT ABD/PELVIS NO ORAL OR IV IMAGES COMPLETED DATE/TIME: 09/28/2019 6:55 pm REASON FOR STUDY: pain kidney disease COMPARISON: None. TECHNIQUE: CT scan of the abdomen and pelvis performed without intravenous or oral contrast. Images reviewed with lung, soft tissue, and bone windows. Reconstructed coronal and sagittal MPR images revi ewed. All images stored on PACS. All CT scanners at this facility use dose modulation, iterative reconstruction, and/or weight based d osing when appropriate to reduce radiation dose to as low as reasonably achievable (ALARA). [facility]: Dose Right [facility]: CareDose [facility]: Dose Right [facility]: Teradose 4D [facility]: Smart [employer] RADIATION DOSE: CT Rad equipment meets quality standard of care and radiation dose reduction techniq ues were employed. CTDIvol: 6.5 mGy. DLP: 330 mGy-cm.mGy. LIMITATIONS: None. FINDINGS: LOWER CHEST: Paraseptal emphysematous changes of the lingula. Small pneumatocele on the r ight. NON-CONTRASTED LIVER, SPLEEN, ADRENALS: Evaluation limited by lack of IV contrast. No identified sign ificant masses. PANCREAS: No masses. No peripancreatic inflammatory changes. GALLBLADDER: Surgically absent. RIGHT KIDNEY AND URETER: No suspicious masses. Assessment limited by lack of IV contrast. No signif icant calcifications. No hydronephrosis or hydroureter. LEFT KIDNEY AND URETER: No suspicious masses. Assessment limited by lack of IV contrast. No signifi cant calcifications. No hydronephrosis or hydroureter. AORTA AND RETROPERITONEUM: No aneurysm. No retroperitoneal masses or adenopathy. BOWEL AND PERITONEAL CAVITY: No obvious masses or inflammatory changes. No free fluid. Few scattered air-fluid levels are seen within nondistended loops of small bowel. APPENDIX: Surgically absent. PELVIS, BLADDER, AND ABDOMINAL WALL:No abnormal masses. No free fluid. Bladder normal. BONES: Status post left total hip arthroplasty. OTHER: No other significant finding. IMPRESSION: Few scattered air-fluid levels seen within nondilated loops of small bowel are nonspecif ic, but may represent developing enteritis. Other chronic and incidental findings as detailed above. COMMENT: Quality ID # [id number]: Final reports with documentation of one or more dose reduction techniques (e.g., Automated exposure control, adjustment of the mA and/or kV according to patient size, use of iterative reconstruction technique) TECHNICAL DOCUMENTATION: JOB ID: [id number] 2010 [email or web address]- All Rights Reserved Reading location - IP/workstation name: [email or web address]
[2019-09-28 19:24] LABS: URINE AMPHETAMINES SCREEN NEGATIVE; URINE BARBITURATES SCREEN NEGATIVE; URINE BENZODIAZEPINES SCREEN NEGATIVE; URINE COCAINE SCREEN NEGATIVE; URINE MARIJUANA (THC) SCREEN NEGATIVE; URINE METHADONE SCREEN NEGATIVE; URINE PHENCYCLIDINE SCREEN NEGATIVE
[2019-09-28] MEDS ORDERED: LEVOFLOXACIN 500 MG/D5W RTU 500 MG/100 ML RTUPB IV ONE (19:53)
[2019-09-28] MEDS ORDERED: NORMAL SALINE 500 ML IV ONE (19:54)
[2019-09-28] MEDS ORDERED: LORAZEPAM INJ 2 MG/1 ML VIAL IV ONE (21:24)
[2019-09-28 22:41] LABS: ANION GAP 9 (5-19); BLOOD UREA NITROGEN 61 mg/dL (7-20); CALCIUM 8.5 mg/dL (8.4-10.2); CARBON DIOXIDE 22 mmol/L (22-30); CHLORIDE 94 mmol/L (98-107); GLUCOSE 111 mg/dL (75-110); POTASSIUM 4.4 mmol/L (3.6-5.0)
--- NOTE | 2019-09-28 22:57 | RADIOLOGY REPORT (SQ) ---
EXAM DESCRIPTION: CT HEAD WITHOUT IV CONTRAST COMPLETED DATE/TME: 09/28/2019 21:21 CLINICAL HISTORY: 64 years, Female, ams confusion COMPARISON: Prior CT head dated 02/10/2019 TECHNIQUE: Noncontrast CT head was acquired. Coronal and sagittal reformations were created. Images stored on PACS. All CT scanners at this facility use dose modulation, iterative reconstruction, and/or weight based dosing when appropriate to reduce radiation dose to as low as reasonably achievable (ALARA). [facility]: Dose Right [facility]: CareDose [facility]: Dose Right [facility]: Teradose 4D [facility]: [employer] LIMITATIONS: None. FINDINGS: Evaluation of the brain parenchyma reveals mild periventricular and patchy subcortical white matter low attenuation. No acute intracranial hemorrhage, mass effect, or extra-axial fluid is seen. Ventricles and sulcal spaces are mildly enlarged. Globes and orbits show no acute abnormality. Rounded opacity is noted about the right maxillary antrum, indicating a mucous retention cyst or inflammatory polyp. Remaining paranasal sinuses and mastoid air cells are clear. Calcifications are evident about the bilateral parasellar carotid and vertebral arteries. No depressed skull fractures. IMPRESSION: No acute intracranial abnormality. Mild chronic microvascular ischemic change with generalized atrophy. TECHNICAL DOCUMENTATION: Quality ID # [id number]: Final reports with documentation of one or more dose reduction techniques (e.g., Automated exposure control, adjustment of the mA and/or kV according to patient size, use of iterative reconstruction technique) copyright 2011 [employer]- All Rights Reserved
[2019-09-28] MEDS ORDERED: DEXTROSE 40% GEL 15 GM TUBE PO PRN ×2 (22:58)
[2019-09-28] MEDS ORDERED: GLUCAGON,HUMAN RECOMB 1 MG INJ IM PRN (22:58)
[2019-09-28] MEDS ORDERED: DEXTROSE 50%-WATER 25 GM/50 ML DISP.SYRIN IV PRN ×2 (22:58)
--- NOTE | 2019-09-28 23:06 | PDOC H&P ---
History of Present Illness Admission Date/PCP: SHARON RICK PA-C History of Present Illness: CRISTIANE LOVE is a 64 year old female with advanced chronic kidney disease and bipolar disorder, hypertension, diabetes, and hypothyroidism who was sent over to the hospital because of some abnormal labs. She was sent by her freelance operator because her sodium has been low. They have been trending it over the past several days and is been low. She tends to run a little bit low, normally betw een 128-130, but here she was 122. She was very agitated because she came over with the impression that she was going to get admitted and then she said somebody told her she could leave, but I got a report that she actually left AGAINST MEDICAL ADVICE. However, she was convinced to stay. Whenever I went in to see her all she wanted to talk about was however body was giving her mixed messages. I was able to convince her to have her sodium rechecked to see if it was back up to her normal. Her sodium did improve, but it only came up to about 125 which is still well below her normal range. Past Medical History Cardiac Medical History: Reports: Coronary Artery Disease, Hyperlipidema, Hypertension, Pulmonary Embolism Denies: Myocardial Infarction Pulmonary Medical History: Reports: Asthma, Bronchitis, Chronic Obstructive P ulmonary Disease (COPD), Pneumonia, Sleep Apnea Denies: Tuberculosis Neurological Medical History: Denies: Seizures Endocrine Medical History: Reports: Diabetes Mellitus Type 2 - Is [address] with the health is going on out there, Hypothyroidism Malignancy Medical History: Reports: Breast Cancer GI Medical History: Reports: Gastroesophageal Reflux Disease Musculoskeltal Medical History: Reports: Arthritis Psychiatric Medical History: Reports: Bipolar Disorder, Depression Hematology: Denies: Anemia Past Surgical History Past Surgical History: Reports: Appendectomy, Cardiac Catheterization - stent x 1, Cholecystectomy, Coronary Stent, Mastectomy - left side, pt states many years ago Social History Smoking Status: Current Every Day Smoker Electronic Cigarette use?: No Frequency of Alcohol Use: Rare Hx Recreational Drug Use: Yes Drugs: Heroin, Marijuana Hx Prescription Drug Abuse: No Family History Family History: Reviewed & Not Pertinent, CAD Parental Family History Reviewed: Yes Children Family History Reviewed: Yes Sibling(s) Family History Reviewed.: Yes Medication/Allergy Home Medications: Calcitriol [Rocaltrol] 0.5 mcg PO BID 02/10/19 Cetirizine HCl [Zyrtec] 10 mg PO DAILY 02/10/19 Fenofibrate Nanocrystallized [Fenofibrate] 160 mg PO DAILY 02/10/19 Omeprazole 40 mg PO DAILY 02/10/19 Bupropion HCl [Bupropion Xl] 150 mg PO DAILY 09/28/19 Calcium Acetate [Phoslo 667 Mg Capsule] 667 mg PO MEALS 09/28/19 Ciprofloxacin HCl [Cipro 500 mg Tablet] 500 mg PO BID #20 tablet 09/28/19 Furosemide [Lasix 40 mg Tablet] 40 mg PO QAM 09/28/19 Gabapentin 300 mg PO QHS 09/28/19 Hydroxyzine Pamoate [Vistaril 25 mg Capsule] 25 mg PO BID 09/28/19 Insulin Glargine,Hum.rec.anlog [Lantus Insulin 100 Unit/mL Insulin Pen] units SUBCUT 09/28/19 Levothyroxine Sodium [Levo-T] 150 mcg PO Q6AM 09/28/19 Lidocaine [Lidoderm 5% (700 mg) Transdermal Patch] 1 patch TOP DAILY 09/28/19 Lisinopril [Prinivil 5 mg Tablet] 5 mg PO DAILY 09/28/19 Metoprolol Tartrate [Lopressor 25 mg Tablet] 25 mg PO Q12 09/28/19 Nifedipine [Nifedipine ER] 90 mg PO DAILY 09/28/19 Quetiapine Fumarate 200 mg PO QHS 09/28/19 Allergies/Adverse Reactions: codeine Allergy (Verified 09/28/19 15:05) Itching latex Allergy (Verified 09/28/19 15:05) Hives liothyronine [From Cytomel] Allergy (Verified 09/28/19 15:05) Shortness of Breath morphine [Morphine] Allergy (Verified 09/28/19 15:05) Itching nalbuphine [From Nubain] Allergy (Verified 09/28/19 15:05) Itching hydrocodone Adverse Reaction (Mild, Verified 09/28/19 15:05) Rash plastic tape Allergy (Uncoded 09/28/19 15:05) Itching Review of Systems All systems: reviewed and no additional remarkable complaints except as stated - All systems were reviewed and were negative except as noted in the HPI Physical Exam Vital Signs: Temp Pulse Resp BP Pulse Ox 98.3 F 71 20 109/70 99 09/28/19 15:01 09/28/19 15:01 09/28/19 15:01 09/28/19 15:01 09/28/19 15:01 Intake & Output 09/27/19 09/28/19 09/29/19 06:59 06:59 06:59 Intake Total 850 Balance 850 Weight 58.7 kg General appearance: PRESENT: cooperative, disheveled, other - Appears 20 years older than her stated age Head exam: PRESENT: atraumatic, normocephalic Eye exam: PRESENT: EOMI, PERRLA. ABSENT: conjunctival injection, nystagmus, scleral icterus Ear exam: PRESENT: normal external ear exam Mouth exam: PRESENT: dry mucosa, neck supple Teeth exam: PRESENT: poor dentation Throat exam: ABSENT: post pharyngeal erythema Neck exam: PRESENT: full ROM. ABSENT: carotid bruit, JVD, lymphadenopathy, meningismus, tenderness, thyromegaly Respiratory exam: PRESENT: clear to auscultation nuvia, decreased breath sounds, symmetrical, unlabored. ABSENT: accessory muscle use, chest wall tenderness, crackles, prolonged expiratory phas, rhonchi, tachypnea, wheezes Cardiovascular exam: PRESENT: RRR, +S1, +S2 Pulses: PRESENT: normal carotid pulses Vascular exam: PRESENT: normal capillary refill GI/Abdominal exam: PRESENT: normal bowel sounds, soft. ABSENT: distended, guarding, rebound, tenderness Extremities exam: ABSENT: clubbing, pedal edema Musculoskeletal exam: PRESENT: normal inspection. ABSENT: deformity Neurological exam: PRESENT: alert, awake, oriented to person, oriented to place, oriented to situation, CN II-XII grossly intact. ABSENT: motor sensory deficit Psychiatric exam: PRESENT: agitated Skin exam: PRESENT: dry, warm Results Laboratory Results: 09/28/19 15:30 09/28/19 22:05 09/28/19 09/28/19 09/28/19 15:30 15:30 15:30 WBC 9.5 RBC 4.15 Hgb 13.2 Hct 37.8 MCV 91 MCH 31.9 MCHC 34.9 RDW 13.1 Plt Count 488 H Seg Neutrophils % 70.9 Sodium 122.9 L Potassium 4.6 Chloride 91 L Carbon Dioxide 21 L Anion Gap 11 BUN 61 H Creatinine 4.71 H Est GFR ( Amer) 11 L Glucose 80 Serum Osmolality Calcium 9.2 Total Bilirubin 0.6 AST 39 H Alkaline Phosphatase 79 Total Protein 7.3 Albumin 4.5 TSH Urine Color YELLOW Urine Appearance CLEAR Urine pH 5.0 Ur Specific [place] 1.008 Urine Protein 100 H Urine Glucose (UA) NEGATIVE Urine Ketones NEGATIVE Urine Blood SMALL H Urine Nitrite NEGATIVE Ur Leukocyte Esterase NEGATIVE Urine WBC (Auto) 0 Urine RBC (Auto) 0 09/28/19 09/28/19 09/28/19 15:30 22:05 22:05 WBC RBC Hgb Hct MCV MCH MCHC RDW Plt Count Seg Neutrophils % Sodium 125.1 L Potassium 4.4 Chloride 94 L Carbon Dioxide 22 Anion Gap 9 BUN 61 H Creatinine 4.38 H Est GFR ( Amer) 12 L Glucose 111 H Serum Osmolality 276 Calcium 8.5 Total Bilirubin AST Alkaline Phosphatase Total Protein Albumin TSH 2.53 Urine Color Urine Appearance Urine pH Ur Specific [place] Urine Protein Urine Glucose (UA) Urine Ketones Urine Blood Urine Nitrite Ur Leukocyte Esterase Urine WBC (Auto) Urine RBC (Auto) Impressions: Chest X-Ray 09/28/19 15:14 IMPRESSION: No evidence of acute cardiopulmonary abnormality. Abdomen/Pelvis CT 09/28/19 18:19 IMPRESSION: Few scattered air-fluid levels seen within nondilated loops of small bowel are nonspecific, but may represent developing enteritis. Other chronic and incidental findings as detailed above. Head CT 09/28/19 21:21 IMPRESSION: No acute intracranial abnormality. Mild chronic microvascular ischemic change with generalized atrophy. TECHNICAL DOCUMENTATION: Quality ID # [id number]: Final reports with documentation of one or more dose reduction techniques (e.g., Automated exposure control, adjustment of the mA and/or kV according to patient size, use of iterative reconstruction technique) copyright 2011 [email or web address]- All Rights Reserved Assessment and Plan - Diagnosis (1) Hyponatremia Is this a current diagnosis for this admission?: Yes Plan: She responded to IV fluids in the ER. We will continue normal saline IV and will repeat a metabolic panel in the morning. There are reports of her being confused but I feel like after my interaction with her she has decision-making capacity, she just chooses poor decision sometimes. (2) Kidney disease, chronic, stage IV (GFR 15-29 ml/min) Is this a current diagnosis for this admission?: Yes Plan: At baseline (3) Cigarette smoker Is this a current diagnosis for this admission?: Yes Plan: Encourage cessation but she has no desire to quit (4) Hypothyroidism Qualifiers: Hypothyroidism type: other Qualified Code(s): E03.8 - Other specified hypothyroidism Is this a current diagnosis for this admission?: Yes Plan: Continue Synthroid (5) Type 2 diabetes mellitus Qualifiers: Diabetes mellitus instructor kindergarten insulin use: with instructor kindergarten use Diabetes mellitus complication status: with kidney complications Diabetes mellitus complication detail: with chronic kidney disease Chronic kidney disease stage: stage 4 (severe) Qualified Code(s): E11.22 - Type 2 diabetes mellitus with diabetic chronic kidney disease; N18.4 - Chronic kidney disease, stage 4 (severe); Z79.4 - senior java architect (current) use of insulin Is this a current diagnosis for this admission?: Yes Plan: Diabetic diet and sliding scale - Time Time Spent with patient: 35 or more minutes Anticipated Discharge Disposition: Home, Self Care Anticipated Discharge Timeframe: within 72 hours - Inpatient Certification Based on my medical assessment, after consideration of the patient's comorbidities, presenting symptoms, or acuity I expect that the services needed warrant INPATIENT care.: Yes I certify that my determination is in accordance with my understanding of Medicare's requirements for reasonable and necessary INPATIENT services [42 CFR 412.3e].: Yes Medical Necessity: Failure to Improve With Outpatient Therapy, Significant Comorbidiites Make Outpatient Treatment Too Risky, Need Close Monitoring Due to Risk of Patient Decompensation, Need For IV Fluids, Need For Continuous Telemetry Monitoring, Risk of Complication if Not Cared For in Hospital
--- NOTE | 2019-09-28 23:07 | ER Document Report ---
Doctor's Note Notes: 09/28/19 23:04 Patient was signed out to me as pending discharge after she finished her fluid bolus, but then nurse said that patient was upset about being discharged because she thought she needed to stay in the hospital which is what her aircraft systems repairer told her. Reviewing the primary provider's notes I saw that she was accepted to an inpatient medicine bed by Dr. Watkins but then patient refused to stay so primary provider had signed patient out AMA. When I went to reevaluate patient she was in the room with her Roddy and she communicated to me that she was going to stay in the hospital and she denied remembering ever having signed out AMA orthotic that happened 2 weeks before. While patient was communicating this to me she suddenly became agitated and demanding to be discharged and that she did not want to stay in the hospital. Patient's said that patient has been confused and that this behavior has been associated with her sodium being low. Given patient's unable to reliably remember events and apparent short-term memory loss I cannot find patient to have capacity to leave AMA and I ordered a CT head and repeat BMP and discussed with the hospitalist regarding admission. Hospitalist saw patient and has agreed to accept patient. Given that patient does not have capacity, I gave her Ativan to protect patient safety as patient began trying to get out of bed and leave the ED forcefully although she does not currently have the ability to refuse care.
[2019-09-28] MEDS ORDERED: METOPROLOL TARTRATE 25 MG TABLET ONE (23:09)
[2019-09-28] MEDS ORDERED: QUETIAPINE FUMARATE 100 MG TABLET PO ONE (23:15)
[2019-09-28] MEDS ORDERED: METOPROLOL TARTRATE 25 MG TABLET PO ONE (23:15)
[2019-09-28] MEDS: NORMAL SALINE 1000 ML 1,000 ML IV PRN (23:29)
[2019-09-29] MEDS ORDERED: HALOPERIDOL LACTATE INJ 5 MG/1 ML VIAL IM ONE (02:20)
[2019-09-29] MEDS ORDERED: LORAZEPAM INJ 2 MG/1 ML VIAL IV ONE (02:20)
[2019-09-29] MEDS ORDERED: LORAZEPAM INJ 2 MG/1 ML VIAL IM ONE (02:22)
[2019-09-29] MEDS ORDERED: NICOTINE 7 MG/24 HR PATCH.TD24 TD ONE (02:45)
[2019-09-29] MEDS: INSULIN LISPRO 100 UNIT/ML 3 ML VIAL SUBCUT SCH ×4 (08:48→21:24)
[2019-09-29] MEDS: NIFEDIPINE 30 MG TAB.ER.24 PO SCH (09:37)
[2019-09-29] MEDS: CALCITRIOL 0.25 MCG CAPSULE PO SCH ×2 (09:38→17:55)
[2019-09-29] MEDS: METOPROLOL TARTRATE 25 MG TABLET PO SCH ×2 (09:39→21:23)
[2019-09-29] MEDS: HEPARIN SOD (PORCINE) 5,000 UNIT/ML 1 ML VIAL SUBCUT SCH ×3 (09:40→21:23)
[2019-09-29] MEDS: LISINOPRIL 5 MG TABLET PO SCH (09:43)
[2019-09-29] MEDS ORDERED: HYDROXYZINE PAMOATE 25 MG CAPSULE PO SCH (10:00)
[2019-09-29 10:15] LABS: ANION GAP 7 (5-19); BLOOD UREA NITROGEN 61 mg/dL (7-20); CALCIUM 7.9 mg/dL (8.4-10.2); CARBON DIOXIDE 19 mmol/L (22-30); CHLORIDE 100 mmol/L (98-107); GLUCOSE 132 mg/dL (75-110); POTASSIUM 4.1 mmol/L (3.6-5.0)
[2019-09-29] MEDS: CALCIUM ACETATE 667 MG CAPSULE PO SCH ×3 (10:58→16:49)
[2019-09-29] MEDS: LIDOCAINE 5% (700 MG) TRANSDERMAL ADH..PATCH TOP SCH (10:58)
[2019-09-29 11:42] LABS: ANION GAP 10 (5-19); BLOOD UREA NITROGEN 59 mg/dL (7-20); CALCIUM 7.8 mg/dL (8.4-10.2); CARBON DIOXIDE 17 mmol/L (22-30); CHLORIDE 99 mmol/L (98-107); GLUCOSE 92 mg/dL (75-110); POTASSIUM 4.4 mmol/L (3.6-5.0)
[2019-09-29] MEDS: HYDROXYZINE PAMOATE 25 MG CAPSULE PO SCH ×2 (12:11→21:24)
[2019-09-29] MEDS ORDERED: NICOTINE 7 MG/24 HR PATCH.TD24 TD PRN (12:49)
--- NOTE | 2019-09-29 12:58 | PDOC PROGRESS REPORT ---
Subjective Progress Note for:: 09/29/19 Subjective:: Patient seen on morning rounds. She was found resting in bed, comfortably, on her baseline oxygen of 2 lpm. A&Ox4. She reports she is tired due to not having slept well last night. Otherwise, she reports she is feeling fine. She denies YOUNG, dizziness, chest pain, palpitations, dyspnea, cough, abdominal pain, nausea and vomiting. She has no other questions or concerns. No concerns per nursing. Reason For Visit: HYPONATREMIA Physical Exam Vital Signs: Temp Pulse Resp BP Pulse Ox 97.8 F 77 17 144/83 H 100 09/29/19 11:25 09/29/19 11:25 09/29/19 11:25 09/29/19 11:25 09/29/19 11:25 Intake & Output 09/28/19 09/29/19 09/30/19 06:59 06:59 06:59 Intake Total 850 Balance 850 Weight 58.7 kg General appearance: PRESENT: no acute distress, cooperative, disheveled, well- developed, well-nourished, other - older than stated age Head exam: PRESENT: atraumatic, normocephalic Eye exam: PRESENT: conjunctiva pink, EOMI, PERRLA. ABSENT: scleral icterus Mouth exam: PRESENT: moist, tongue midline Teeth exam: PRESENT: poor dentation Respiratory exam: PRESENT: clear to auscultation nuvia, symmetrical, unlabored, other - baseline supplemental oxygen. ABSENT: rales, rhonchi, wheezes Cardiovascular exam: PRESENT: RRR. ABSENT: diastolic murmur, rubs, systolic murmur Pulses: PRESENT: normal dorsalis pedis pul Vascular exam: PRESENT: normal capillary refill Extremities exam: PRESENT: full ROM. ABSENT: calf tenderness, clubbing, pedal edema Musculoskeletal exam: PRESENT: ambulatory Neurological exam: PRESENT: alert, awake, oriented to person, oriented to place, oriented to time, oriented to situation, CN II-XII grossly intact. ABSENT: motor sensory deficit Psychiatric exam: PRESENT: appropriate affect, normal mood. ABSENT: homicidal ideation, suicidal ideation Skin exam: PRESENT: dry, intact, warm. ABSENT: cyanosis, rash Results Laboratory Results: 09/28/19 15:30 09/29/19 11:02 09/28/19 09/28/19 09/28/19 15:30 15:30 15:30 WBC 9.5 RBC 4.15 Hgb 13.2 Hct 37.8 MCV 91 MCH 31.9 MCHC 34.9 RDW 13.1 Plt Count 488 H Seg Neutrophils % 70.9 Sodium 122.9 L Potassium 4.6 Chloride 91 L Carbon Dioxide 21 L Anion Gap 11 BUN 61 H Creatinine 4.71 H Est GFR ( Amer) 11 L Glucose 80 Serum Osmolality Calcium 9.2 Total Bilirubin 0.6 AST 39 H Alkaline Phosphatase 79 Total Protein 7.3 Albumin 4.5 TSH Urine Color YELLOW Urine Appearance CLEAR Urine pH 5.0 Ur Specific [place] 1.008 Urine Protein 100 H Urine Glucose (UA) NEGATIVE Urine Ketones NEGATIVE Urine Blood SMALL H Urine Nitrite NEGATIVE Ur Leukocyte Esterase NEGATIVE Urine WBC (Auto) 0 Urine RBC (Auto) 0 09/28/19 09/28/19 09/28/19 15:30 22:05 22:05 WBC RBC Hgb Hct MCV MCH MCHC RDW Plt Count Seg Neutrophils % Sodium 125.1 L Potassium 4.4 Chloride 94 L Carbon Dioxide 22 Anion Gap 9 BUN 61 H Creatinine 4.38 H Est GFR ( Amer) 12 L Glucose 111 H Serum Osmolality 276 Calcium 8.5 Total Bilirubin AST Alkaline Phosphatase Total Protein Albumin TSH 2.53 Urine Color Urine Appearance Urine pH Ur Specific [place] Urine Protein Urine Glucose (UA) Urine Ketones Urine Blood Urine Nitrite Ur Leukocyte Esterase Urine WBC (Auto) Urine RBC (Auto) 09/29/19 09/29/19 09:39 11:02 WBC RBC Hgb Hct MCV MCH MCHC RDW Plt Count Seg Neutrophils % Sodium 126.0 L 126.3 L Potassium 4.1 4.4 Chloride 100 99 Carbon Dioxide 19 L 17 L Anion Gap 7 10 BUN 61 H 59 H Creatinine 4.09 H 3.87 H Est GFR ( Amer) 13 L 14 L Glucose 132 H 92 Serum Osmolality Calcium 7.9 L 7.8 L Total Bilirubin AST Alkaline Phosphatase Total Protein Albumin TSH Urine Color Urine Appearance Urine pH Ur Specific [place] Urine Protein Urine Glucose (UA) Urine Ketones Urine Blood Urine Nitrite Ur Leukocyte Esterase Urine WBC (Auto) Urine RBC (Auto) Impressions: Chest X-Ray 09/28/19 15:14 IMPRESSION: No evidence of acute cardiopulmonary abnormality. Abdomen/Pelvis CT 09/28/19 18:19 IMPRESSION: Few scattered air-fluid levels seen within nondilated loops of smal l bowel are nonspecific, but may represent developing enteritis. Other chronic and incidental findings as detailed above. Head CT 09/28/19 21:21 IMPRESSION: No acute intracranial abnormality. Mild chronic microvascular ischemic change with generalized atrophy. TECHNICAL DOCUMENTATION: Quality ID # 436: Final reports with documentation of one or more dose reduction techniques (e.g., Automated exposure control, adjustment of the mA and/or kV according to patient size, use of iterative reconstruction technique) copyright 2011 [employer]- All Rights Reserved Assessment and Plan - Diagnosis (1) Hyponatremia Is this a current diagnosis for this admission?: Yes Plan: Improved; Na 122-> 126 She responded to IV fluids in the ER. Patient is admitted to the medical floor on continuous cardiac telemetry. Continue gentle IV fluids. Liberalize dietary sodium. Holding furosemide. Follow-up chemistries. (2) Hypothyroidism Qualifiers: Hypothyroidism type: other Qualified Code(s): E03.8 - Other specified hypothyroidism Is this a current diagnosis for this admission?: Yes Plan: Continue Synthroid (3) Kidney disease, chronic, stage IV (GFR 15-29 ml/min) Is this a current diagnosis for this admission?: Yes Plan: At baseline Avoid nephrotoxic medications. (4) Type 2 diabetes mellitus Qualifiers: Diabetes mellitus skilled nursing insulin use: with cell liner use Diabetes criss fisher complication status: with kidney complications Diabetes mellitus comp lication detail: with chronic kidney disease Chronic kidney disease stage: stage 4 (severe) Qualified Code(s): E11.22 - Type 2 diabetes mellitus with diabetic chronic kidney disease; N18.4 - Chronic kidney disease, stage 4 (severe); Z79.4 - residential (current) use of insulin Is this a current diagnosis for this admission?: Yes Plan: Patient is placed on a consistent carb diet. Accu-Cheks before meals and at bedtime with Humalog for sliding scale coverage. Hypoglycemia protocol in place. (5) Cigarette smoker Is this a current diagnosis for this admission?: Yes Plan: Encourage cessation but she has no desire to quit Nicotine replacement therapies provided. - Time Time Spent with patient: 25-34 minutes Medications reviewed and adjusted accordingly: Yes Anticipated Discharge Disposition: Home, Self Care Anticipated Discharge Timeframe: within 24 hours
[2019-09-29] MEDS: NORMAL SALINE 1000 ML 1,000 ML IV PRN (15:38)
[2019-09-29 16:37] LABS: ANION GAP 10 (5-19); BLOOD UREA NITROGEN 59 mg/dL (7-20); CALCIUM 8.5 mg/dL (8.4-10.2); CARBON DIOXIDE 17 mmol/L (22-30); CHLORIDE 101 mmol/L (98-107); GLUCOSE 82 mg/dL (75-110); POTASSIUM 4.6 mmol/L (3.6-5.0)
[2019-09-29] MEDS ORDERED: QUETIAPINE FUMARATE 100 MG TABLET PO SCH (22:00)
[2019-09-29] MEDS ORDERED: GABAPENTIN 300 MG CAPSULE PO SCH (22:00)
--- NOTE | 2019-09-29 23:03 | EKG REPORT ---
SEVERITY:- ABNORMAL ECG - INCOMPLETE ANALYSIS DUE TO MISSING DATA IN PRECORDIAL LEAD(S) SINUS RHYTHM MULTIPLE VENTRICULAR PREMATURE COMPLEXES : Confirmed by: Laura Edwards MD 29-Sep-2019 23:02:38
[2019-09-30] MEDS: HEPARIN SOD (PORCINE) 5,000 UNIT/ML 1 ML VIAL SUBCUT SCH (05:56)
[2019-09-30] MEDS ORDERED: LEVOTHYROXINE SODIUM 0.15 MG TABLET PO SCH (06:00)
[2019-09-30] MEDS: INSULIN LISPRO 100 UNIT/ML 3 ML VIAL SUBCUT SCH (07:46)
[2019-09-30] MEDS: CALCIUM ACETATE 667 MG CAPSULE PO SCH (07:50)
[2019-09-30] MEDS: NIFEDIPINE 30 MG TAB.ER.24 PO SCH (09:14)
[2019-09-30] MEDS: METOPROLOL TARTRATE 25 MG TABLET PO SCH (09:15)
[2019-09-30] MEDS: CALCITRIOL 0.25 MCG CAPSULE PO SCH (09:15)
[2019-09-30] MEDS: LISINOPRIL 5 MG TABLET PO SCH (09:15)
[2019-09-30] MEDS: LIDOCAINE 5% (700 MG) TRANSDERMAL ADH..PATCH TOP SCH (09:16)
[2019-09-30] MEDS: HYDROXYZINE PAMOATE 25 MG CAPSULE PO SCH (09:16)
[2019-09-30 09:32] LABS: ANION GAP 5 (5-19); BLOOD UREA NITROGEN 54 mg/dL (7-20); CALCIUM 8.2 mg/dL (8.4-10.2); CARBON DIOXIDE 20 mmol/L (22-30); CHLORIDE 106 mmol/L (98-107); GLUCOSE 146 mg/dL (75-110); POTASSIUM 4.3 mmol/L (3.6-5.0)
[2019-09-30 12:29] VITALS: BP 162/77
--- NOTE | 2019-10-01 16:56 | PDOC DISCHARGE SUMMARY ---
Impression - Admit/DC Date/PCP Admission Date/Primary Care Provider: 09/28/19 23:07 SHARON ROBERTSON PA-C Discharge Date: 09/30/19 - Discharge Diagnosis (1) Hyponatremia Is this a current diagnosis for this admission?: Yes (2) Hypothyroidism Is this a current diagnosis for this admission?: Yes (3) Kidney disease, chronic, stage IV (GFR 15-29 ml/min) Is this a current diagnosis for this admission?: Yes (4) Type 2 diabetes mellitus Is this a current diagnosis for this admission?: Yes (5) Cigarette smoker Is this a current diagnosis for this admission?: Yes - Additional Information Discharge Diet: Regular Discharge Activity: Activity As Tolerated, Balance Activity w/Rest Referrals: SHARON ROBERTSON PA-C [Primary Care Provider] - (Follow up within 1 week.) Prescriptions: Ciprofloxacin HCl [Cipro 500 mg Tablet] 500 mg PO BID #20 tablet Nicotine [Nicoderm 7 mg/24 Hr Transdermal Patch] 1 each TD DAILYP PRN #30 patch.td24 PRN Reason: Home Medications: Calcitriol [Rocaltrol] 0.5 mcg PO BID 02/10/19 Cetirizine HCl [Zyrtec] 10 mg PO DAILY 02/10/19 Fenofibrate Nanocrystallized [Fenofibrate] 160 mg PO DAILY 02/10/19 Omeprazole 40 mg PO DAILY 02/10/19 Bupropion HCl [Bupropion Xl] 150 mg PO DAILY 09/28/19 Calcium Acetate [Phoslo 667 mg Capsule] 667 mg PO MEALS 09/28/19 Ciprofloxacin HCl [Cipro 500 mg Tablet] 500 mg PO BID #20 tablet 09/28/19 Furosemide [Lasix 40 mg Tablet] 40 mg PO QAM 09/28/19 Gabapentin 300 mg PO QHS 09/28/19 Hydroxyzine Pamoate [Vistaril 25 mg Capsule] 25 mg PO BID 09/28/19 Insulin Glargine,Hum.rec.anlog [Lantus Insulin 100 Unit/mL Insulin Pen] 15 units SUBCUT QHS 09/28/19 Levothyroxine Sodium [Levo-T] 150 mcg PO Q6AM 09/28/19 Lidocaine [Lidoderm 5% (700 mg) Transdermal Patch] 1 patch TOP DAILY 09/28/19 Lisinopril [Prinivil 5 mg Tablet] 5 mg PO DAILY 09/28/19 Metoprolol Tartrate [Lopressor 25 mg Tablet] 25 mg PO Q12 09/28/19 Nifedipine [Nifedipine ER] 90 mg PO DAILY 09/28/19 Quetiapine Fumarate 200 mg PO QHS 09/28/19 Nicotine [Nicoderm 7 mg/24 Hr Transdermal Patch] 1 each TD DAILYP PRN #30 patch.td24 09/30/19 History of Present Illiness History of Present Illness: Per H&P by Dr. Castro: CRISTIANE LOVE is a 64 year old female with advanced chronic kidney disease and bipolar disorder, hypertension, diabetes, and hypothyroidism who was sent over to the hospital because of some abnormal labs. She was sent by her student accounts manager because her sodium has been low. They have been trending it over the past several days and is been low. She tends to run a little bit low, normally between 128-130, but here she was 122. She was very agitated because she came over with the impression that she was going to get admitted and then she said somebody told her she could leave, but I got a report that she actually left AGAINST MEDICAL ADVICE. However, she was convinced to stay. Whenever I went in to see her all she wanted to talk about was however body was giving her mixed messages. I was able to convince her to have her sodium rechecked to see if it was back up to her normal. Her sodium did i mprove, but it only came up to about 125 which is still well below her normal range. Dr. Thakur told me that after initially agreeing to stay, the patient had told Dr. arias earlier that she was going to leave AGAINST MEDICAL ADVICE. The patient denies this to me. She said that she left AGAINST MEDICAL ADVICE a couple of weeks ago but denied saying she was going to leave AGAINST MEDICAL ADVICE tonight. I cannot find any documentation that the patient had said earlier that she was going to leave AGAINST MEDICAL ADVICE tonight other than Dr. Thakur telling me that Dr. arias said the patient was going to leave. Dr. Thakur is of the opinion that the patient is medically unable to make her own decisions at this time. I think that this patient is making a poor choice by requesting to leave AGAINST MEDICAL ADVICE. I have already agreed to accept her to the inpatient service but I do not feel like I can make her do that against her will. She understands if she were to leave AGAINST MEDICAL ADVICE she would be at seriously high risk of numerous adverse consequences which were explained to the patient and her in detail. Hospital Course Hospital Course: The patient was admitted to the medical floor on continuous cardiac telemetry. Free water was restricted. She is provided gentle IV fluids. Serial chemistries were monitored with gradual upward trend of sodium to her baseline ; 122.9-> 125.1-> 126.0-> 126.3-> 127.6-> 131.1. Did discuss with mental health services; IVC paperwork was not appropriately filed and so the patient never truly was under an involuntary commitment status. The patient remained alert and oriented x4 throughout her admission. She is noted to have labile emotions, frequent agitation, and tangential thinking, however, she was able to clearly describe to me the risks and benefits of leaving prior to her sodium returning to normal and was able to discuss a prior admission for similar cause. Patient is discharged home in stable condition and advised to follow up with both her PCP and student accounts manager within 1 week. Physical Exam Vital Signs: Temp Pulse Resp BP Pulse Ox 97.6 F 71 16 162/77 H 97 09/30/19 12:00 09/30/19 12:00 09/30/19 12:00 09/30/19 12:00 09/30/19 12:00 Intake & Output 09/30/19 10/01/19 10/02/19 06:59 06:59 06:59 Intake Total 2120 Balance 2120 Weight 66.4 kg General appearance: PRESENT: no acute distress, disheveled, well-developed, well-nourished, other - Older than stated age Head exam: PRESENT: atraumatic, normocephalic Eye exam: PRESENT: conjunctiva pink, EOMI, PERRLA. ABSENT: scleral icterus Mouth exam: PRESENT: moist, tongue midline Respiratory exam: PRESENT: clear to auscultation nuvia, symmetrical, unlabored. ABSENT: rales, rhonchi, wheezes Cardiovascular exam: PRESENT: RRR. ABSENT: diastolic murmur, rubs, systolic murmur Pulses: PRESENT: normal dorsalis pedis pul Vascular exam: PRESENT: normal capillary refill GI/Abdominal exam: PRESENT: normal bowel sounds, soft. ABSENT: distended, guarding, mass, organolmegaly, rebound, tenderness Rectal exam: PRESENT: deferred Extremities exam: PRESENT: full ROM. ABSENT: calf tenderness, clubbing, pedal edema Musculoskeletal exam: PRESENT: ambulatory Neurological exam: PRESENT: alert, awake, oriented to person, oriented to place, oriented to time, oriented to situation, CN II-XII grossly intact. ABSENT: motor sensory deficit Psychiatric exam: PRESENT: agitated, normal mood, unusual affect. ABSENT: homicidal ideation, suicidal ideation Skin exam: PRESENT: dry, intact, warm. ABSENT: cyanosis, rash Results Laboratory Results: WBC 9.5 10^3/uL (4.0-10.5) 09/28/19 15:30 RBC 4.15 10^6/uL (3.72-5.28) 09/28/19 15:30 Hgb 13.2 g/dL (12.0-15.5) 09/28/19 15:30 Hct 37.8 % (36.0-47.0) 09/28/19 15:30 MCV 91 fl (80-97) 09/28/19 15:30 MCH 31.9 pg (27.0-33.4) 09/28/19 15:30 MCHC 34.9 g/dL (32.0-36.0) 09/28/19 15:30 RDW 13.1 % (11.5-14.0) 09/28/19 15:30 Plt Count 488 10^3/uL (150-450) H 09/28/19 15:30 Lymph % (Auto) 21.3 % (13-45) 09/28/19 15:30 Bonner % (Auto) 6.2 % (3-13) 09/28/19 15:30 Eos % (Auto) 0.7 % (0-6) 09/28/19 15:30 Baso % (Auto) 0.9 % (0-2) 09/28/19 15:30 Absolute Neuts (auto) 6.8 10^3/uL (1.7-8.2) 09/28/19 15:30 Absolute Lymphs (auto) 2.0 10^3/uL (0.5-4.7) 09/28/19 15:30 Absolute Monos (auto) 0.6 10^3/uL (0.1-1.4) 09/28/19 15:30 Absolute Eos (auto) 0.1 10^3/uL (0.0-0.6) 09/28/19 15:30 Absolute Basos (auto) 0.1 10^3/uL (0.0-0.2) 09/28/19 15:30 Seg Neutrophils % 70.9 % (42-78) 09/28/19 15:30 Sodium 131.1 mmol/L (137-145) L 09/30/19 08:30 Potassium 4.3 mmol/L (3.6-5.0) 09/30/19 08:30 Chloride 106 mmol/L (98-107) 09/30/19 08:30 Carbon Dioxide 20 mmol/L (22-30) L 09/30/19 08:30 Anion Gap 5 (5-19) 09/30/19 08:30 BUN 54 mg/dL (7-20) H 09/30/19 08:30 Creatinine 4.05 mg/dL (0.52-1.25) H 09/30/19 08:30 Est GFR ( Amer) 13 (>60) L 09/30/19 08:30 Est GFR (MDRD) Non-Af 11 (>60) L 09/30/19 08:30 Glucose 146 mg/dL (75-110) H 09/30/19 08:30 POC Glucose 106 mg/dL (70-110) 09/30/19 11:37 Serum Osmolality 276 mOsm/kg (275-301) 09/28/19 22:05 Calcium 8.2 mg/dL (8.4-10.2) L 09/30/19 08:30 Total Bilirubin 0.6 mg/dL (0.2-1.3) 09/28/19 15:30 Direct Bilirubin 0.3 mg/dL (0.0-0.4) 09/28/19 15:30 Neonat Total Bilirubin Not Reportable 09/28/19 15:30 Neonat Direct Bilirubin Not Reportable 09/28/19 15:30 Neonat Indirect Bili Not Reportable 09/28/19 15:30 AST 39 U/L (14-36) H 09/28/19 15:30 ALT 30 U/L (<35) 09/28/19 15:30 Alkaline Phosphatase 79 U/L (38-126) 09/28/19 15:30 Total Protein 7.3 g/dL (6.3-8.2) 09/28/19 15:30 Albumin 4.5 g/dL (3.5-5.0) 09/28/19 15:30 TSH 2.53 uIU/mL (0.47-4.68) 09/28/19 15:30 Urine Color YELLOW 09/28/19 15:30 Urine Appearance CLEAR 09/28/19 15:30 Urine pH 5.0 (5.0-9.0) 09/28/19 15:30 Ur Specific [place] 1.008 09/28/19 15:30 Urine Protein 100 mg/dL (NEGATIVE) H 09/28/19 15:30 Urine Glucose (UA) NEGATIVE mg/dL (NEGATIVE) 09/28/19 15:30 Urine Ketones NEGATIVE mg/dL (NEGATIVE) 09/28/19 15:30 Urine Blood SMALL (NEGATIVE) H 09/28/19 15:30 Urine Nitrite NEGATIVE (NEGATIVE) 09/28/19 15:30 Urine Bilirubin NEGATIVE (NEGATIVE) 09/28/19 15:30 Urine Urobilinogen NEGATIVE mg/dL (<2.0) 09/28/19 15:30 Ur Leukocyte Esterase NEGATIVE (NEGATIVE) 09/28/19 15:30 Urine WBC (Auto) 0 /HPF 09/28/19 15:30 Urine RBC (Auto) 0 /HPF 09/28/19 15:30 Urine Bacteria (Auto) TRACE /HPF 09/28/19 15:30 Squamous Epi Cells Auto 1 /HPF 09/28/19 15:30 Urine Mucus (Auto) RARE /LPF 09/28/19 15:30 Urine Ascorbic Acid NEGATIVE (NEGATIVE) 09/28/19 15:30 Urine Opiates Screen NEGATIVE 09/28/19 15:30 Urine Methadone Screen NEGATIVE 09/28/19 15:30 Ur Barbiturates Screen NEGATIVE 09/28/19 15:30 Ur Phencyclidine Scrn NEGATIVE 09/28/19 15:30 Ur Amphetamines Screen NEGATIVE 09/28/19 15:30 U Benzodiazepines Scrn NEGATIVE 09/28/19 15:30 Urine Cocaine Screen NEGATIVE 09/28/19 15:30 U Marijuana (THC) Screen NEGATIVE 09/28/19 15:30 Impressions: Chest X-Ray 09/28/19 15:14 IMPRESSION: No evidence of acute cardiopulmonary abnormality. Abdomen/Pelvis CT 09/28/19 18:19 IMPRESSION: Few scattered air-fluid levels seen within nondilated loops of small bowel are nonspecific, but may represent developing enteritis. Other chronic and incidental findings as detailed above. Head CT 09/28/19 21:21 IMPRESSION: No acute intracranial abnormality. Mild chronic microvascular ischemic change with generalized atrophy. TECHNICAL DOCUMENTATION: Quality ID # 436: Final reports with documentation of one or more dose reduction techniques (e.g., Automated exposure control, adjustment of the mA and/or kV according to patient size, use of iterative reconstruction technique) copyright 2011 [employer]- All Rights Reserved Plan Plan of Treatment: Patient is discharged home in stable condition. She is advised to follow-up with her primary care provider within 1 week. Follow-up with her student accounts manager, Sharon Robertson, as scheduled. She is instructed to take her medications as prescribed. She is educated on the importance of fluid restriction. We discussed liberalizing dietary sodium. She is encouraged to return to the emergency department as needed for concerning symptoms. Time Spent: Greater than 30 Minutes Stroke Is this a Stroke Patient?: No Acute Heart Failure - Is this a Heart Failure Patient?: No
== END 2019-09-30 13:15 | disposition home or self-care (01) | DRG 641 ==
LOC: ER 14:56 → EH 23:07 → 4N 09-29 06:24
PROVIDERS: ADMIT Family Medicine; ATTEND Registered Nurse
PROC: 5A09457 Assistance with Respiratory Ventilation, 24-96 Consecutive Hours, Continuous Positive Airway Pressure (ICD-10-PCS; principal; 2019-09-29)
DX: E87.1 Hypo-osmolality and hyponatremia (principal); N18.4 Chronic kidney disease, stage 4 (severe); E11.9 Type 2 diabetes mellitus without complications; I12.9 Hypertensive chronic kidney disease with stage 1 through stage 4 chronic kidney disease, or unspecified chronic kidney disease; F31.9 Bipolar disorder, unspecified; E11.22 Type 2 diabetes mellitus with diabetic chronic kidney disease; I25.10 Atherosclerotic heart disease of native coronary artery without angina pectoris; E78.5 Hyperlipidemia, unspecified; E89.0 Postprocedural hypothyroidism; Y83.6 Removal of other organ (partial) (total) as the cause of abnormal reaction of the patient, or of later complication, without mention of misadventure at the time of the procedure; K21.9 Gastro-esophageal reflux disease without esophagitis; F17.210 Nicotine dependence, cigarettes, uncomplicated; E83.52 Hypercalcemia; E78.00 Pure hypercholesterolemia, unspecified; I69.341 Monoplegia of lower limb following cerebral infarction affecting right dominant side; Z79.4 Long term (current) use of insulin; Z79.899 Other long term (current) drug therapy; Z86.711 Personal history of pulmonary embolism; Z85.3 Personal history of malignant neoplasm of breast; Z95.5 Presence of coronary angioplasty implant and graft; Z90.12 Acquired absence of left breast and nipple; Z88.6 Allergy status to analgesic agent; Z91.040 Latex allergy status; Z91.048 Other nonmedicinal substance allergy status
CPT/HCPCS: 36415; 70450; 71045; 74176; 80048; 80053; 80307; 81001; 82962; 83930; 84443; 85025; 87040; 87077; 87086; 87150; 87186; 93005; 93010; 94660; 96361; 96365; 96375; 99285; J1644; J1885; J1956; J2060; J2405; J3490; J7030; J7040; J7050

== ENCOUNTER → 2019-10-06 | Outpatient (CLI) | payer BC, MEDICAID ==
[2019-10-07 05:38] LABS: HEPATITIS C VIRUS AB <0.1 s/co ratio (0.0-0.9)
[2019-10-07 18:29] LABS: HEPATITS B SURFACE ANTIGEN Negative (Negative)
== END ==
LOC: OD 10:58
PROVIDERS: ATTEND Physician Assistant Medical
DX: N18.5 Chronic kidney disease, stage 5 (principal); Z11.59 Encounter for screening for other viral diseases
CPT/HCPCS: 36415; 86317; 86704; 86803; 86804; 87340

== ENCOUNTER 2019-10-20 08:24 | Inpatient (IN) | payer BC, MEDICAID ==
--- NOTE | 2019-10-20 09:27 | RADIOLOGY REPORT (SQ) ---
EXAM DESCRIPTION: CHEST SINGLE VIEW IMAGES COMPLETED DATE/TIME: 10/20/2019 9:14 am REASON FOR STUDY: shortness of breath COMPARISON: 09/28/2019 EXAM PARAMETERS: NUMBER OF VIEWS: One view. TECHNIQUE: Single frontal radiographic view of the chest acquired. RADIATION DOSE: NA LIMITATIONS: None. FINDINGS: LUNGS AND PLEURA: No opacities, masses or pneumothorax. No pleural effusion. Few Nohemy B -lines noted within the left hemithorax. Unchanged a asymmetric opacification of the left hemithorax , possibly secondary to left breast prostheses. MEDIASTINUM AND HILAR STRUCTURES: No masses. Contour normal. HEART AND VASCULAR STRUCTURES: Heart normal in size. Vascular calcifications. BONES: No acute findings. HARDWARE: Right internal jugular hemodialysis catheter tip at cavoatrial junction. OTHER: No other significant finding. IMPRESSION: Few Nohemy B-lines noted within the left hemithorax possibly mild asymmetric interstitia l edema or scarring. No other evidence of acute cardiopulmonary process. TECHNICAL DOCUMENTATION: JOB ID: [id number] 2010 [employer]- All Rights Reserved Reading location - IP/workstation name: [email or web address]
[2019-10-20 09:39] LABS: HEMOGLOBIN 10.8 g/dL (12.0-15.5); MEAN CORPUSCULAR HEMOGLOBIN 31.1 pg (27.0-33.4); MEAN CORPUSCULAR HGB CONC 33.7 g/dL (32.0-36.0); MEAN CORPUSCULAR VOLUME 92 fl (80-97); RED BLOOD COUNT 3.48 10^6/uL (3.72-5.28); RED CELL DISTRIBUTION WIDTH 13.4 % (11.5-14.0); WHITE BLOOD COUNT 19.9 10^3/uL (4.0-10.5)
[2019-10-20] MEDS ORDERED: NORMAL SALINE 250 ML IV ONE (09:40)
[2019-10-20 09:41] LABS: VENOUS BLOOD BASE EXCESS -1.7 mmol/L; VENOUS BLOOD HCO3 23.9 mmol/L (20-32); VENOUS BLOOD PH 7.36 (7.30-7.42)
[2019-10-20 09:51] LABS: INTERNATIONAL RATION (INR) 1.17; PROTHROMBIN TIME 15.1 SEC (11.4-15.4)
[2019-10-20 09:52] LABS: ALBUMIN 2.8 g/dL (3.5-5.0); ALKALINE PHOSPHATASE 64 U/L (38-126); ANION GAP 12 (5-19); ASPARTATE AMINO TRANSFERASE 72 U/L (14-36); BILIRUBIN,DIRECT 0.2 mg/dL (0.0-0.4); BILIRUBIN,TOTAL 0.5 mg/dL (0.2-1.3); BLOOD UREA NITROGEN 26 mg/dL (7-20); CARBON DIOXIDE 22 mmol/L (22-30); CHLORIDE 92 mmol/L (98-107); GLUCOSE 196 mg/dL (75-110); TOTAL PROTEIN 5.3 g/dL (6.3-8.2)
[2019-10-20 10:03] LABS: ABSOLUTE LYMPHOCYTES# (MANUAL) 0.8 10^3/uL (0.5-4.7); ABSOLUTE MONOCYTES # (MANUAL) 0.6 10^3/uL (0.1-1.4); BAND NEUTROPHILS % (MANUAL) 7 % (3-5); BASOPHILS % (MANUAL) 0 % (0-2); EOSINOPHILS % (MANUAL) 0 % (0-6); LYMPHOCYTES % (MANUAL) 4 % (13-45); METAMYELOCYTES % (MANUAL) 1 % (0-1); MONOCYTES % (MANUAL) 3 % (3-13); SEGMENTED NEUTROPHILS % (MAN) 85 % (42-78); TOTAL CELLS COUNTED 100
--- NOTE | 2019-10-20 10:09 | EKG REPORT ---
SEVERITY:- OTHERWISE NORMAL ECG - SINUS TACHYCARDIA : Confirmed by: Emilio Clay 20-Oct-2019 10:09:17
[2019-10-20 10:12] LABS: PLATELET CLUMPS PRESENT; PLATELET COMMENT DECREASED; RBC MORPHOLOGY COMMENT NORMO-CYTIC/CHROMIC
[2019-10-20 10:13] LABS: PLATELET COUNT 132 10^3/uL (150-450)
[2019-10-20 10:17] LABS: CALCIUM 6.4 mg/dL (8.4-10.2)
[2019-10-20] MEDS ORDERED: CALCIUM GLUCONATE 1000 MG/10 ML INJ IV ONE (10:42)
[2019-10-20] MEDS ORDERED: POTASSI CL 20 MEQ/50 ML RIDER 20 MEQ/50 ML RTUPB IV ONE ×2 (10:44→18:13)
[2019-10-20 13:21] LABS: APPEARANCE,URINE CLOUDY; BILIRUBIN,URINE NEGATIVE (NEGATIVE); COLOR,URINE YELLOW; GLUCOSE, URINE >=500 mg/dL (NEGATIVE); KETONES,URINE TRACE mg/dL (NEGATIVE); LEUKOCYTE ESTERASE,URINE NEGATIVE (NEGATIVE); NITRITE,URINE NEGATIVE (NEGATIVE); PROTEIN,URINE >=500 mg/dL (NEGATIVE); URINE SPECIFIC GRAVITY 1.011; UROBILINOGEN,URINE NEGATIVE mg/dL (<2.0)
--- NOTE | 2019-10-20 15:01 | RADIOLOGY REPORT (SQ) ---
EXAM DESCRIPTION: CT CHEST WITHOUT IMAGES COMPLETED DATE/TIME: 10/20/2019 2:43 pm REASON FOR STUDY: Elevated WBC, ? infiltrate COMPARISON: CT 04/07/2017, same day radiograph TECHNIQUE: CT scan performed of the chest without intravenous contrast. Images reviewed with lung, soft tissue and bone windows. Reconstructed coronal and sagittal MPR images reviewed. All images st ored on PACS. All CT scanners at this facility use dose modulation, iterative reconstruction, and/or weight based d osing when appropriate to reduce radiation dose to as low as reasonably achievable (ALARA). [facility]: Dose Right [facility]: CareDose [facility]: Dose Right [facility]: Teradose 4D [facility]: [employer] RADIATION DOSE: CT Rad equipment meets quality standard of care and radiation dose reduction techniq ues were employed. CTDIvol: 9.4 mGy. DLP: 351 mGy-cm. mGy. LIMITATIONS: No technical limitations. FINDINGS: LUNGS AND PLEURA: Mild dependent consolidation. Additional patchy areas of bilateral matt pheral ground-glass attenuation throughout both lungs. Interlobular septal thickening. Upper lobe e mphysema. No significant pleural effusion. No pneumothorax. No discrete pulmonary mass. HILAR AND MEDIASTINAL STRUCTURES: No identified masses or abnormal nodes. No obvious aneurysm. HEART AND VASCULAR STRUCTURES: Small pericardial effusion. Coronary atherosclerosis. Normal heart s ize. UPPER ABDOMEN: No significant findings. Limited exam. THYROID AND OTHER SOFT TISSUES: No masses. No adenopathy. BONES: No acute bony abnormality. No suspicious osseous findings. HARDWARE: Right internal jugular tunneled hemodialysis catheter with tip at cavoatrial junction. Lef t breast prostheses. OTHER: No other significant findings. IMPRESSION: 1. Mild lower lobe consolidation, likely atelectasis. Addition patchy bilateral areas of ground-glass attenuation which are nonspecific and may represent infectious/inflammatory process, including viral pneumonias. 2. Interlobular septal thickening suggestive of mild interstitial edema. Small pericardial effusion . TECHNICAL DOCUMENTATION: JOB ID: [id number] Quality ID # 436: Final reports with documentation of one or more dose reduction techniques (e.g., Au tomated exposure control, adjustment of the mA and/or kV according to patient size, use of iterative reconstruction technique) 2010 [employer]- All Rights Reserved Reading location - IP/workstation name: [email or web address]
[2019-10-20] MEDS ORDERED: CEFEPIME 2 GM/D5W RTU 2 GM/50 ML RTUPB IV ONE (15:35)
[2019-10-20] MEDS ORDERED: VANCOMYCIN HCL INJ 1000 MG VIAL IV ONE (15:37)
--- NOTE | 2019-10-20 18:51 | RADIOLOGY REPORT (SQ) ---
EXAM DESCRIPTION: CT HEAD WITHOUT IMAGES COMPLETED DATE/TIME: 10/20/2019 6:35 pm REASON FOR STUDY: ams COMPARISON: None. TECHNIQUE: Axial images acquired through the brain without intravenous contrast. Images reviewed wi th bone, brain and subdural windows. Images stored on PACS. All CT scanners at this facility use dose modulation, iterative reconstruction, and/or weight based d osing when appropriate to reduce radiation dose to as low as reasonably achievable (ALARA). [facility]: Dose Right [facility]: CareDose [facility]: Dose Right [facility]: Teradose 4D [facility]: [employer] RADIATION DOSE: CT Rad equipment meets quality standard of care and radiation dose reduction techniq ues were employed. CTDIvol: 53.2 mGy. DLP: 1044 mGy-cm. mGy. LIMITATIONS: None. FINDINGS: VENTRICLES: Normal size and contour. CEREBRUM: No masses. No hemorrhage. No midline shift. No evidence for acute infarction. Normal gra y/white matter differentiation. No areas of low density in the white matter. CEREBELLUM: No masses. No hemorrhage. No alteration of density. No evidence for acute infarction. EXTRAAXIAL SPACES: No fluid collections. No masses. ORBITS AND GLOBE: No intra- or extraconal masses. Normal contour of globe without masses. CALVARIUM: No fracture. PARANASAL SINUSES: No fluid or mucosal thickening. SOFT TISSUES: No mass or hematoma. OTHER: No other significant finding. IMPRESSION: NORMAL BRAIN CT WITHOUT CONTRAST. EVIDENCE OF ACUTE STROKE: NO. COMMENT: Quality ID # 436: Final reports with documentation of one or more dose reduction techniques (e.g., Automated exposure control, adjustment of the mA and/or kV according to patient size, use of iterative reconstruction technique) TECHNICAL DOCUMENTATION: JOB ID: [id number] 2010 [employer]- All Rights Reserved Reading location - IP/workstation name: [email or web address]
[2019-10-20] MEDS: MAGNESIUM SULFATE/D5W 1 GM/100 ML RTUPB IV SCH ×2 (19:49→20:17)
[2019-10-20 21:08] LABS: ARTERIAL BLOOD BASE EXCESS -1.3 mmol/L; ARTERIAL BLOOD HCO3 20.5 mmol/L (20-24); ARTERIAL BLOOD O2 SATURATION 92.5 % (94-98); ARTERIAL BLOOD PCO2 26.7 mmHg (35-45); ARTERIAL BLOOD PO2 56.9 mmHg (80-100); ARTERIAL BLOOD TOTAL CO2 21.3 mmol/L (21-25)
[2019-10-21] MEDS ORDERED: NORMAL SALINE 1000 ML 1,000 ML IV PRN ×2 (00:39→09:25)
[2019-10-21] MEDS: ACETAMINOPHEN 650 MG SUPP.RECT PR PRN ×2 (02:07→20:53)
[2019-10-21] MEDS ORDERED: NORMAL SALINE 250 ML IV ONE (02:52)
[2019-10-21] MEDS ORDERED: ACETAMINOPHEN 650 MG SUPP.RECT PR ONE ×2 (03:29)
[2019-10-21] MEDS ORDERED: DEXAMETHASONE 4 MG TABLET PO SCH (06:00)
--- NOTE | 2019-10-21 08:03 | ER Document Report ---
Entered by ALENA BARON SCRIBE 10/20/19 0939 Acting as scribe for:GOPI VELOZ MD ED General <EVERETTE RODRIGUEZ - Last Filed: 10/21/19 00:31> - General Information source: Patient TRAVEL OUTSIDE OF THE [place] IN LAST 30 DAYS: No <GOPI VELOZ - Last Filed: 10/21/19 08:03> - General Chief Complaint: Fever Stated Complaint: FEVER Notes: This 64 year old female patient presents to the emergency department today with complaints of shortness of breath. Patient is an ESRD patient and she was due for dialysis today but did not go because of shortness of breath. She states that she has COPD and continues to smoke. Her blood pressure was marginal on arrival. She denies any pain or cough. (GOPI VELOZ) - Related Data Allergies/Adverse Reactions: codeine Allergy (Verified 09/28/19 15:05) Itching latex Allergy (Verified 09/28/19 15:05) Hives liothyronine [From Cytomel] Allergy (Verified 09/28/19 15:05) Shortness of Breath morphine [Morphine] Allergy (Verified 09/28/19 15:05) Itching nalbuphine [From Nubain] Allergy (Verified 09/28/19 15:05) Itching hydrocodone Adverse Reaction (Mild, Verified 09/28/19 15:05) Rash plastic tape Allergy (Uncoded 09/28/19 15:05) Itching Past Medical History - General Information source: Patient - Social History Smoking Status: Current Every Day Smoker Cigarette use (# per day): Yes Chew tobacco use (# tins/day): No Frequency of alcohol use: None Drug Abuse: None Lives with: Spouse/Significant other Family History: Reviewed & Not Pertinent, CAD - Past Medical History Cardiac Medical History: Reports: Hx Congestive Heart Failure, Hx Coronary Artery Disease, Hx Hypercholesterolemia, Hx Hypertension, Hx Pulmonary Embolism Pulmonary Medical History: Reports: Hx Asthma, Hx Bronchitis, Hx COPD, Hx Pneumonia, Hx Sleep Apnea Neurological Medical History: Reports: Hx Cerebrovascular Accident - Weakness Rt Leg, uses cane Endocrine Medical History: Reports: Hx Diabetes Mellitus Type 2, Hx Hypothyroidism Renal/ Medical History: Reports: Hx End Stage Renal Disease, Hx Renal Insufficiency Malignancy Medical History: Reports: Hx Breast Cancer GI Medical History: Reports: Hx Gastroesophageal Reflux Disease Musculoskeletal Medical History: Reports Hx Arthritis Psychiatric Medical History: Reports: Hx Bipolar Disorder, Hx Depression Past Surgical History: Reports: Hx Appendectomy, Hx Cardiac Catheterization - stent x 1, Hx Cholecystectomy, Hx Coronary Stent, Hx Mastectomy - left side, pt states many years ago, Hx Thyroid Surgery - thyroid removal - Immunizations Hx Diphtheria, Pertussis, Tetanus Vaccination: Yes Hx Pneumococcal Vaccination: 11/29/16 <GOPI VELOZ - Last Filed: 10/21/19 08:03> Review of Systems - Review of Systems Constitutional: No symptoms reported EENT: No symptoms reported Cardiovascular: No symptoms reported Respiratory: See HPI, Short of breath Gastrointestinal: No symptoms reported Genitourinary: No symptoms reported Female Genitourinary: No symptoms reported Musculoskeletal: No symptoms reported Skin: No symptoms reported Hematologic/Lymphatic: No symptoms reported Neurological/Psychological: No symptoms reported -: Yes All other systems reviewed and negative <GOPI VELOZ - Last Filed: 10/21/19 08:03> Physical Exam <GOPI VELOZ - Last Filed: 10/21/19 08:03> - Vital signs Vitals: Temp Pulse Ox 98.7 F 92 10/20/19 08:24 10/20/19 08:24 - Notes Notes: Physical Exam: General: Alert, appears much older than stated age. HEENT: Normocephalic. Atraumatic. PERRL. Extraocular movements intact. Oropharynx clear. Neck: Supple. Non-tender. Respiratory: Mild respiratory distress. Diminished but clear breath sounds bilaterally. Cardiovascular: Regular rate and rhythm. Abdominal: Normal Inspection. Non-tender. No distension. Normal Bowel Sounds. Back: No gross abnormalities. Extremities: Moves all four extremities. Upper extremities: Normal inspection. Normal ROM. Lower extremities: Normal inspection. No edema. Normal ROM. Neurological: Normal cognition. AAOx4. Normal speech. Psychological: Normal affect. Normal Mood. Skin: Warm. Dry. Normal color. (GOPI VELOZ) Course - Laboratory Result Diagrams: 10/20/19 09:02 10/20/19 09:02 - Diagnostic Test Radiology reviewed: Image reviewed, Reports reviewed - CT head: No acute intracranial findings, no acute stroke CT chest: Findings suggestive of atelectasis, however, infectious etiology cannot be excluded. <EVERETTE RODRIGUEZ - Last Filed: 10/21/19 00:31> - Laboratory Result Diagrams: 10/20/19 09:02 10/20/19 09:02 - Diagnostic Test Radiology reviewed: Image reviewed, Reports reviewed <GOPI VELOZ - Last Filed: 10/21/19 08:03> - Re-evaluation Re-evalutation: 10/20/19 22:30 Patient resting quietly on BiPAP, O2 sat 98 to 100%, tachycardic at 124, blood pressure 106/78. I have contacted Dr Sanchez regarding admitting the patient to the hospital for further treatment. He states he will admit the patient to the hospital and the floor will be determined by the coronavirus status. If negative can go to the IMCU, if positive he would like to know and the patient will go to the coronavirus floor. 10/20/19 22:42 Apparently the patient did not have a rapid coronavirus test, is a send out swab. Dr. Sanchez, he states admit the patient to the COVID floor. (EVERETTE RODRIGUEZ) 10/20/19 16:49 discussed case with hospitalist and Dr. Merlos. Dr Merlos has accepted patient , after multiple discussions with both parties. 10/20/19 16:59 Dr merlos agreed that he would admit patient , and stated that Dr Sanchez is lamination builder at 5 PM (GOPI VELOZ) - Vital Signs Vital signs: Temp Pulse Resp BP Pulse Ox 100.9 F H 128 H 31 H 85/50 L 93 10/21/19 07:16 10/21/19 07:16 10/21/19 07:16 10/21/19 07:16 10/21/19 07:16 10/20/19 16:53 vital signs show tachycardia, and is on bipap. (GOPI VELOZ) - Laboratory Laboratory results interpreted by me: 10/20/19 10/20/19 10/20/19 09:02 09:02 09:02 WBC 19.9 H RBC 3.48 L Hgb 10.8 L Hct 32.0 L Plt Count 132 L Seg Neuts % (Manual) 85 H Band Neutrophils % 7 H Lymphocytes % (Manual) 4 L Abs Neuts (Manual) 18.5 H Carbonic Acid ABG pH ABG pCO2 ABG pO2 ABG O2 Saturation Sodium 126.4 L Potassium 3.0 L* Chloride 92 L BUN 26 H Creatinine 2.54 H Est GFR ( Amer) 23 L Est GFR (MDRD) Non-Af 19 L Glucose 196 H Calcium 6.4 L* Magnesium 1.5 L AST 72 H Total Protein 5.3 L Albumin 2.8 L Urine Protein Urine Glucose (UA) Urine Ketones Urine Blood 10/20/19 10/20/19 12:50 20:00 WBC RBC Hgb Hct Plt Count Seg Neuts % (Manual) Band Neutrophils % Lymphocytes % (Manual) Abs Neuts (Manual) Carbonic Acid 0.80 L ABG pH 7.50 H ABG pCO2 26.7 L ABG pO2 56.9 L ABG O2 Saturation 92.5 L Sodium Potassium Chloride BUN Creatinine Est GFR ( Amer) Est GFR (MDRD) Non-Af Glucose Calcium Magnesium AST Total Protein Albumin Urine Protein >=500 H Urine Glucose (UA) >=500 H Urine Ketones TRACE H Urine Blood MODERATE H labs show leukocytosis, normal lactic acid, uti. 10/20/19 16:56 low Potassium, and low Calcium., and low Magnesium. (GOPI VELOZ) - Diagnostic Test Radiology results interpreted by me: 10/20/19 16:54 Ct chest shows bilateral infiltrates, ground glass. Cxr shows no acute process except for some cngestive markings. (GOPI VELOZ) - EKG Interpretation by Me Additional EKG results interpreted by me: 10/20/19 16:57 12 lead EKG shows sinus tachycardia. no other acute sttw changes. artifact present (GOPI VELOZ) - Transfer of Care Notes: 10/20/19 18:54 case signed out to Dr. Rodriguez (GOPI VELOZ) Discharge - Discharge Admitting Provider: Laura Unit Admitted: Medical Floor <EVERETTE RODRIGUEZ - Last Filed: 10/21/19 00:31> - Discharge Admitting Provider: Kindra (Outer Diameter Technician) Unit Admitted: ICU <GOPI VELOZ - Last Filed: 10/21/19 08:03> - Discharge Clinical Impression: End stage chronic kidney disease, Hypokalemia COPD (chronic obstructive pulmonary disease) Qualifiers: COPD type: unspecified COPD Qualified Code(s): J44.9 - Chronic obstructive pulmonary disease, unspecified Pneumonia Qualifiers: Pneumonia type: due to unspecified organism Laterality: bilateral Lung location: lower lobe of lung Qualified Code(s): J18.9 - Pneumonia, unspecified organism Chronic renal failure Qualifiers: Chronic kidney disease stage: stage 3 (moderate) Qualified Code(s): N18.3 - Chronic kidney disease, stage 3 (moderate) Type 2 diabetes mellitus Qualifiers: Diabetes mellitus usp insulin use: unspecified usp insulin use status Diabetes mellitus complication status: with kidney complications Diabetes mellitus complication detail: with nephropathy Qualified Code(s): E11.21 - Type 2 diabetes mellitus with diabetic nephropathy Respiratory failure Qualifiers: Chronicity: unspecified Respiratory failure complication: hypoxia and hypercapnia Qualified Code(s): J96.91 - Respiratory failure, unspecified with hypoxia; J96.92 - Respiratory failure, unspecified with hypercapnia Atrial flutter Qualifiers: Atrial flutter type: unspecified Qualified Code(s): I48.92 - Unspecified atrial flutter Condition: Fair Disposition: ADMITTED INPATIENT I personally performed the services described in the documentation, reviewed and edited the documentation which was dictated to the scribe in my presence, and it accurately records my words and actions.
[2019-10-21] MEDS ORDERED: EPINEPHRINE INJ/PF 1 MG/1 ML AMPULE ONE ×2 (08:08→09:04)
[2019-10-21] MEDS ORDERED: NOREPINEPHRINE BITARTRATE INJ/PF 4 MG/4 ML SDV IV ONE (08:10)
[2019-10-21 08:12] LABS: ARTERIAL BLOOD H2CO3 0.91 mmol/L (1.05-1.35); ARTERIAL BLOOD HCO3 17.8 mmol/L (20-24); ARTERIAL BLOOD O2 SATURATION 92.4 % (94-98); ARTERIAL BLOOD PCO2 30.1 mmHg (35-45); ARTERIAL BLOOD PH 7.39 (7.35-7.45); ARTERIAL BLOOD PO2 63.2 mmHg (80-100); ARTERIAL BLOOD TOTAL CO2 18.7 mmol/L (21-25)
[2019-10-21 08:13] LABS: ARTERIAL BLOOD FIO2 45%
[2019-10-21] MEDS: DEXTROSE 5%-WATER 250 ML with NOREPINEPHRINE BITARTRATE 4 MG IV PRN ×8 (08:22→23:35)
[2019-10-21] MEDS ORDERED: ETOMIDATE INJ/PF 20 MG/10 ML SDV IV ONE ×2 (08:31→08:54)
[2019-10-21] MEDS ORDERED: VANCOMYCIN HCL 0 MG in DEXTROSE 5%-WATER 250 ML IV NR (08:45)
[2019-10-21] MEDS ORDERED: EPINEPHRINE INJ 1 MG/10 ML DISP.SYRIN ONE (09:04)
[2019-10-21 09:23] LABS: HEMATOCRIT 33.3 % (36.0-47.0); HEMOGLOBIN 11.3 g/dL (12.0-15.5); MEAN CORPUSCULAR HEMOGLOBIN 31.5 pg (27.0-33.4); MEAN CORPUSCULAR HGB CONC 34.1 g/dL (32.0-36.0); MEAN CORPUSCULAR VOLUME 92 fl (80-97); PLATELET COUNT 122 10^3/uL (150-450); RED CELL DISTRIBUTION WIDTH 14.1 % (11.5-14.0); WHITE BLOOD COUNT 23.8 10^3/uL (4.0-10.5)
[2019-10-21] MEDS ORDERED: CALCIUM GLUCONATE 1000 MG/10 ML INJ IV ONE ×2 (09:23→14:22)
--- NOTE | 2019-10-21 09:27 | Progress Note ---
Provider Note Provider Note: Patient intubated with #75 ETT for obtundation, airway protection and aspiration risk. Glidescope used.
--- NOTE | 2019-10-21 09:29 | Operative Report ---
Bedside Procedure - History of Present Illness History of Present Illness: CRISTIANE LOVE is a 64 year old female Indication for Procedure: Poor IV access and need for pressors. Date: 10/21/19 Provider: WAN CALDERON - Central Line Left Subclavian Time completed: 09:00 Consent obtained: No - Family not available, emergency Central line pre-insertion: Sterile PPE donned, Chloraprep applied, Sterile drapes applied Central line lumen type: Triple Ultrasound guided: No Line secured with sutures: Yes Central line post-insertion: Blood return from lumens, Biopatch applied, Sutured, Sterile dressing applied, Position confirmed w/ CXR Number of attempts: 1 Complications: No
[2019-10-21] MEDS ORDERED: DEXTROSE 40% GEL 15 GM TUBE PO PRN ×2 (09:39)
[2019-10-21] MEDS ORDERED: GLUCAGON,HUMAN RECOMB 1 MG INJ SUBCUT PRN (09:39)
[2019-10-21] MEDS ORDERED: DEXTROSE 50%-WATER 25 GM/50 ML DISP.SYRIN IV PRN ×2 (09:39)
[2019-10-21] MEDS ORDERED: PHARMACY COMMUNICATION ORDER MC NR (09:45)
[2019-10-21] MEDS: NORMAL SALINE 1000 ML 1,000 ML IV PRN ×3 (09:45→23:37)
[2019-10-21 09:49] LABS: ALBUMIN 2.3 g/dL (3.5-5.0); ALKALINE PHOSPHATASE 57 U/L (38-126); ANION GAP 13 (5-19); ASPARTATE AMINO TRANSFERASE 130 U/L (14-36); BILIRUBIN,DIRECT 0.4 mg/dL (0.0-0.4); BILIRUBIN,TOTAL 0.5 mg/dL (0.2-1.3); BLOOD UREA NITROGEN 51 mg/dL (7-20); CARBON DIOXIDE 21 mmol/L (22-30); CHLORIDE 99 mmol/L (98-107); GLUCOSE 200 mg/dL (75-110); POTASSIUM 3.7 mmol/L (3.6-5.0); TOTAL PROTEIN 4.7 g/dL (6.3-8.2)
[2019-10-21 10:19] LABS: ABSOLUTE LYMPHOCYTES# (MANUAL) 2.1 10^3/uL (0.5-4.7); ABSOLUTE MONOCYTES # (MANUAL) 2.9 10^3/uL (0.1-1.4); BAND NEUTROPHILS % (MANUAL) 3 % (3-5); BASOPHILS % (MANUAL) 0 % (0-2); EOSINOPHILS % (MANUAL) 0 % (0-6); LYMPHOCYTES % (MANUAL) 9 % (13-45); MONOCYTES % (MANUAL) 12 % (3-13); SEGMENTED NEUTROPHILS % (MAN) 76 % (42-78); TOTAL CELLS COUNTED 100
[2019-10-21 10:20] LABS: ANISOCYTOSIS SLIGHT; OVALOCYTES SLIGHT; PLATELET COMMENT ADEQUATE; TOXIC VACUOLATION PRESENT
[2019-10-21] MEDS ORDERED: DEXMEDETOMIDINE IN 0.9 % NACL 400 MCG/100 ML RTUPB IV ONE (10:21)
--- NOTE | 2019-10-21 10:38 | RADIOLOGY REPORT (SQ) ---
EXAM DESCRIPTION: CHEST SINGLE VIEW IMAGES COMPLETED DATE/TIME: 10/21/2019 9:48 am REASON FOR STUDY: tube placement COMPARISON: 10/20/2019 FINDINGS: One view chest AP portable upright 4 endotracheal and nasogastric tube placement. Endotracheal tube appropriate. Nasogastric tube appropriate. Dual-lumen right IJ catheter remains in place. Lobe subclavian scratch at left subclavian line in place, appropriate. Increased density left lateral chest may represent overlying soft tissues. This looks stable. No pneumothorax. TECHNICAL DOCUMENTATION: JOB ID: [id number] Reading location - IP/workstation name: [email or web address]
--- NOTE | 2019-10-21 13:47 | CRITICAL CARE ADMISSION REPORT ---
HPI Date:: 10/21/19 Time:: 09:00 Reason for ICU Reason:: Obtunded witrh agonal breathing, hypotension and meeting criteria for septic shock. Admission Date/Time & PCP: Admission Date/Time: 10/21/19 03:33 Primary Care Provider: SHARON RICK PA-C History obtained from:: Old records and nursing staff. - Diagnosis/Plan (1) Septic shock Is this a current diagnosis for this admission?: Yes Plan: She has temp of 100.9, WBC of 19, tachycardia to 113. BP 70/40. Staph, likely MRSA, in blood. Recently placed HD catheter in R subclavian. This is bleeding with a dressing saturated with old dried blood. This may be the source. Linezolid started. Receiving 2 liters, on levophed and will check lactate. (2) COPD (chronic obstructive pulmonary disease) Qualifiers: COPD type: unspecified COPD Qualified Code(s): J44.9 - Chronic obstructive pulmonary disease, unspecified Is this a current diagnosis for this admission?: Yes Plan: This is most likely contributing for her poor respiratory status. (3) End stage chronic kidney disease Is this a current diagnosis for this admission?: Yes Plan: She has a history of CKD st 3, 4. Now scheduled for HD this AM but she is too unstable right now. (4) Respiratory failure Qualifiers: Chronicity: acute Is this a current diagnosis for this admission?: Yes Plan: Her ABG is surprisingly stable with no real hypoxia or hypercarbia. Nevetheless her respirations are agonal and she is unresponsive. Apparently she arrived this way from the ED according to nursing staff requiring my fairly urgent attention. She was quickly intubated and a cantral line placed because of poor IV access. (5) CAD (coronary artery disease) Qualifiers: Coronary Disease-Associated Artery/Lesion type: [place] artery [place] vs. transplanted heart: [place] heart Associated angina: angina presence unspecified Qualified Code(s): I25.10 - Atherosclerotic heart disease of [place] coronary artery without angina pectoris Is this a current diagnosis for this admission?: Yes Plan: Inactive at the moment. Will check EKG. (6) Cigarette smoker Is this a current diagnosis for this admission?: Yes Plan: Despite medical issues she continues to smoke as she explained to Dr. Gabriel when she was able to talk. Past Medical History Cardiac Medical History: Reports: Congestive Heart Failure, Coronary Artery Disease, Hyperlipidema, Hypertension, Pulmonary Embolism Denies: Myocardial Infarction Pulmonary Medical History: Reports: Asthma, Bronchitis, Chronic Obstructive Pulmonary Disease (COPD), Pneumonia, Sleep Apnea Denies: Tuberculosis Neurological Medical History: Denies: Seizures Endocrine Medical History: Reports: Diabetes Mellitus Type 2, Hypothyroidism Renal/ Medical History: Reports: End Stage Renal Disease Malignancy Medical History: Reports: Breast Cancer GI Medical History: Reports: Gastroesophageal Reflux Disease Musculoskeltal Medical History: Reports: Arthritis Psychiatric Medical History: Reports: Bipolar Disorder, Depression Hematology: Denies: Anemia Past Surgical History Past Surgical History: Reports: Appendectomy, Cardiac Catheterization - stent x 1, Cholecystectomy, Coronary Stent, Mastectomy - left side, pt states many years ago Social/Family History - Social History Lives with: Spouse/Significant other Smoking Status: Current Every Day Smoker Frequency of Alcohol Use: Rare Hx Recreational Drug Use: Yes Drugs: Heroin, Marijuana Hx Prescription Drug Abuse: No - Medication/Allergies Home Medications: Calcitriol [Rocaltrol] 0.5 mcg PO BID 02/10/19 Cetirizine HCl [Zyrtec] 10 mg PO DAILY 02/10/19 Fenofibrate Nanocrystallized [Fenofibrate] 160 mg PO DAILY 02/10/19 Omeprazole 40 mg PO DAILY 02/10/19 Bupropion HCl [Bupropion Xl] 150 mg PO DAILY 09/28/19 Calcium Acetate [Phoslo 667 mg Capsule] 667 mg PO MEALS 09/28/19 Ciprofloxacin HCl [Cipro 500 mg Tablet] 500 mg PO BID #20 tablet 09/28/19 Furosemide [Lasix 40 mg Tablet] 40 mg PO QAM 09/28/19 Gabapentin 300 mg PO QHS 09/28/19 Hydroxyzine Pamoate [Vistaril 25 mg Capsule] 25 mg PO BID 09/28/19 Insulin Glargine,Hum.rec.anlog [Lantus Insulin 100 Unit/mL Insulin Pen] 15 units SUBCUT QHS 09/28/19 Levothyroxine Sodium [Levo-T] 150 mcg PO Q6AM 09/28/19 Lidocaine [Lidoderm 5% (700 mg) Transdermal Patch] 1 patch TOP DAILY 09/28/19 Lisinopril [Prinivil 5 mg Tablet] 5 mg PO DAILY 09/28/19 Metoprolol Tartrate [Lopressor 25 mg Tablet] 25 mg PO Q12 09/28/19 Nifedipine [Nifedipine ER] 90 mg PO DAILY 09/28/19 Quetiapine Fumarate 200 mg PO QHS 09/28/19 Nicotine [Nicoderm 7 mg/24 Hr Transdermal Patch] 1 each TD DAILYP PRN #30 patch.td24 09/30/19 Allergies/Adverse Reactions: codeine Allergy (Verified 09/28/19 15:05) Itching latex Allergy (Verified 09/28/19 15:05) Hives liothyronine [From Cytomel] Allergy (Verified 09/28/19 15:05) Shortness of Breath morphine [Morphine] Allergy (Verified 09/28/19 15:05) Itching nalbuphine [From Nubain] Allergy (Verified 09/28/19 15:05) Itching hydrocodone Adverse Reaction (Mild, Verified 09/28/19 15:05) Rash plastic tape Allergy (Uncoded 09/28/19 15:05) Itching Review of Systems ROS unobtainable: Due to endotracheal tube, Due to mental status Physical Exam Vital Signs: Temp Pulse Resp BP Pulse Ox 100.6 F H 108 H 23 H 70/51 L 99 10/21/19 12:00 10/21/19 12:00 10/21/19 12:00 10/21/19 12:00 10/21/19 12:00 Intake & Output 10/20/19 10/21/19 10/22/19 06:59 06:59 06:59 Intake Total 797 Output Total 400 Balance 797 -400 Weight 62.4 kg Weight/Height Weight 62.4 kg Height 5 ft 4 in General appearance: PRESENT: severe distress, thin, other - Looking emaciated. Head exam: PRESENT: atraumatic, normocephalic Eye exam: PRESENT: conjunctiva pink, EOMI, PERRLA. ABSENT: scleral icterus Ear exam: PRESENT: normal external ear exam Mouth exam: PRESENT: moist, tongue midline Neck exam: PRESENT: other - Old R mid neck scar of unknown reason. Respiratory exam: PRESENT: decreased breath sounds, prolonged expiratory phas, s ymmetrical, tachypnea Cardiovascular exam: PRESENT: RRR, tachycardia GI/Abdominal exam: PRESENT: normal bowel sounds, soft. ABSENT: distended, guarding, mass, organolmegaly, rebound, tenderness Rectal exam: PRESENT: deferred Gentrourinary exam: PRESENT: indwelling catheter Extremities exam: PRESENT: other - Muscle wasting and emaciation. Musculoskeletal exam: PRESENT: full ROM, normal inspection Neurological exam: PRESENT: altered, other - Obtunded Skin exam: PRESENT: pallor Tubes/Lines: PRESENT: Endotracheal Tube, Central Line, Dialysis catheter, Nasogastic Tube Laboratory/Radiographs Laboratory Results: 10/21/19 09:15 10/21/19 09:15 10/20/19 10/20/19 10/20/19 13:34 17:09 20:00 WBC RBC Hgb Hct MCV MCH MCHC RDW Plt Count Seg Neutrophils % Carbonic Acid 0.80 L HCO3/H2CO3 Ratio 25:1 ABG pH 7.50 H ABG pCO2 26.7 L ABG pO2 56.9 L ABG HCO3 20.5 ABG O2 Saturation 92.5 L ABG Base Excess -1.3 FiO2 27% Sodium Potassium Chloride Carbon Dioxide Anion Gap BUN Creatinine Est GFR ( Amer) Glucose Lactic Acid 1.7 1.4 Calcium Ionized Calcium Claire Total Bilirubin AST Alkaline Phosphatase Total Protein Albumin 10/21/19 10/21/19 10/21/19 08:05 09:15 09:15 WBC 23.8 H RBC 3.60 L Hgb 11.3 L Hct 33.3 L MCV 92 MCH 31.5 MCHC 34.1 RDW 14.1 H Plt Count 122 L Seg Neutrophils % Not Reportable Carbonic Acid 0.91 L HCO3/H2CO3 Ratio 19:1 ABG pH 7.39 ABG pCO2 30.1 L ABG pO2 63.2 L ABG HCO3 17.8 L ABG O2 Saturation 92.4 L ABG Base Excess -6.0 FiO2 45% Sodium 133.1 L Potassium 3.7 Chloride 99 Carbon Dioxide 21 L Anion Gap 13 BUN 51 H Creatinine 4.09 H Est GFR ( Amer) 13 L Glucose 200 H Lactic Acid Calcium 6.0 L* Ionized Calcium Claire Total Bilirubin 0.5 AST 130 H Alkaline Phosphatase 57 Total Protein 4.7 L Albumin 2.3 L 10/21/19 10/21/19 09:15 09:15 WBC RBC Hgb Hct MCV MCH MCHC RDW Plt Count Seg Neutrophils % Carbonic Acid HCO3/H2CO3 Ratio ABG pH ABG pCO2 ABG pO2 ABG HCO3 ABG O2 Saturation ABG Base Excess FiO2 Sodium Potassium Chloride Carbon Dioxide Anion Gap BUN Creatinine Est GFR ( Amer) Glucose Lactic Acid 2.8 H Calcium Ionized Calcium Claire 0.91 L Total Bilirubin AST Alkaline Phosphatase Total Protein Albumin 10/20/19 09:02 Blood Blood Culture (PCR) - Final Staphylococcus Aureus 10/20/19 12:50 Clean Catch Midstream Urine Culture - Final Mixed Urogenital Agueda Impressions: Chest CT 10/20/19 12:41 IMPRESSION: 1. Mild lower lobe consolidation, likely atelectasis. Addition patchy bilateral areas of ground-glass attenuation which are nonspecific and may represent infectious/inflammatory process, including viral pneumonias. 2. Interlobular septal thickening suggestive of mild interstitial edema. Small pericardial effusion. Head CT 10/20/19 18:11 IMPRESSION: NORMAL BRAIN CT WITHOUT CONTRAST. EVIDENCE OF ACUTE STROKE: NO. EKG: ST All labs, radiographs, diagnostic studies and EKGs were personally reviewed: Yes In addition, reports of radiographic and diagnostic studies were read: Yes Critical Time Critical Time (minutes): 50 -: The care of a critically ill patient is dynamic. This note represents a static moment in the admission process. Orders and treatments may be given simultaneously and urgently, and time is not manufacturer representative of the treatment process. This patient requires Critical Care secondary to life threatening organ or limb dysfunction. Without Critical Care services, the patient is at risk for increased mortality and morbidity.
[2019-10-21] MEDS ORDERED: DEXAMETHASONE 4 MG TABLET NG SCH (14:00)
[2019-10-21 14:16] LABS: ARTERIAL BLOOD BASE EXCESS -5.8 mmol/L; ARTERIAL BLOOD FIO2 100%; ARTERIAL BLOOD H2CO3 0.95 mmol/L (1.05-1.35); ARTERIAL BLOOD HCO3 18.4 mmol/L (20-24); ARTERIAL BLOOD O2 SATURATION 97.9 % (94-98); ARTERIAL BLOOD PCO2 31.6 mmHg (35-45); ARTERIAL BLOOD PH 7.38 (7.35-7.45); ARTERIAL BLOOD PO2 107.6 mmHg (80-100); ARTERIAL BLOOD TOTAL CO2 19.3 mmol/L (21-25)
[2019-10-21] MEDS: PANTOPRAZOLE SODIUM 40 MG VIAL IV SCH (15:04)
[2019-10-21] MEDS: LINEZOLID 600 MG/300 ML RTUPB IV SCH ×2 (15:06→21:00)
[2019-10-21] MEDS: HEPARIN SOD (PORCINE) 5,000 UNIT/ML 1 ML VIAL SUBCUT SCH ×3 (15:06→21:00)
[2019-10-21] MEDS: ASCORBIC ACID 500 MG TABLET PO SCH (15:06)
[2019-10-21] MEDS ORDERED: ACETAMINOPHEN SOLN 325 MG/10.15 ML UDCUP ONE (16:01)
[2019-10-21] MEDS: CALCIUM GLUCONATE 1 GM/NS 50 ML RTU IV SCH ×2 (17:00→18:00)
[2019-10-21] MEDS: DEXTROSE 5%-WATER 250 ML with VASOPRESSIN 100 UNIT IV PRN ×2 (18:18)
[2019-10-21] MEDS ORDERED: VASOPRESSIN INJ 20 UNIT/1 ML VIAL ONE (18:18)
--- NOTE | 2019-10-21 19:08 | PDOC H&P ---
History of Present Illness Admission Date/PCP: 10/21/19 03:33 SHARON RICK PA-C History of Present Illness: CRISTIANE LOVE is a 64 year old female patient of Dr. Maru Pacheco who presented to the ED for fever and shortness of breath. Her morbidities include ESRD on hemodialysis. She missed her dialysis session on the day of her presentation with elevated blood pressure at presentation. She denied any fever, cough or chest pain. Her initial ED evaluation was significant for chest X ray suggestive of airspace disease process along with her ESRD indices. Due to her chronic morbidities and presenting symptoms, it was felt that patient should be ruled out for COVID-19 infection. Due to her severe shortness of breath, history of COPD and continue smoking she was supported on BiPAP. Due to lack of COVID-19 isolation bed she was accommodated in the ICU. Despite antibiotic intervention and supportive care patient decompensated and had to be intubated. Her care was eventually transferred to the plaster foreman. Her morbidities are listed below. Past Medical History Cardiac Medical History: Reports: Congestive Heart Failure, Coronary Artery Di sease, Hyperlipidema, Hypertension, Pulmonary Embolism Denies: Myocardial Infarction Pulmonary Medical History: Reports: Asthma, Bronchitis, Chronic Obstructive Pulmonary Disease (COPD), Pneumonia, Sleep Apnea Denies: Tuberculosis Neurological Medical History: Denies: Seizures Endocrine Medical History: Reports: Diabetes Mellitus Type 2, Hypothyroidism Renal/ Medical History: Reports: End Stage Renal Disease Malignancy Medical History: Reports: Breast Cancer GI Medical History: Reports: Gastroesophageal Reflux Disease Musculoskeltal Medical History: Reports: Arthritis Psychiatric Medical History: Reports: Bipolar Disorder, Depression Hematology: Denies: Anemia Past Surgical History Past Surgical History: Reports: Appendectomy, Cardiac Catheterization - stent x 1, Cholecystectomy, Coronary Stent, Mastectomy - left side, pt states many years ago Social History Lives with: Spouse/Significant other Smoking Status: Current Every Day Smoker Electronic Cigarette use?: No Frequency of Alcohol Use: Rare Hx Recreational Drug Use: Yes Drugs: Heroin, Marijuana Hx Prescription Drug Abuse: No Family History Family History: Reviewed & Not Pertinent, CAD Parental Family History Reviewed: Yes Children Family History Reviewed: Yes Sibling(s) Family History Reviewed.: Yes Medication/Allergy Home Medications: Calcitriol [Rocaltrol] 0.5 mcg PO BID 02/10/19 Cetirizine HCl [Zyrtec] 10 mg PO DAILY 02/10/19 Fenofibrate Nanocrystallized [Fenofibrate] 160 mg PO DAILY 02/10/19 Omeprazole 40 mg PO DAILY 02/10/19 Bupropion HCl [Bupropion Xl] 150 mg PO DAILY 09/28/19 Calcium Acetate [Phoslo 667 mg Capsule] 667 mg PO MEALS 09/28/19 Furosemide [Lasix 40 mg Tablet] 40 mg PO QAM 09/28/19 Gabapentin 300 mg PO QHS 09/28/19 Hydroxyzine Pamoate [Vistaril 25 mg Capsule] 25 mg PO BID 09/28/19 Insulin Glargine,Hum.rec.anlog [Lantus Insulin 100 Unit/mL Insulin Pen] 15 units SUBCUT QHS 09/28/19 Levothyroxine Sodium [Levo-T] 150 mcg PO Q6AM 09/28/19 Lidocaine [Lidoderm 5% (700 mg) Transdermal Patch] 1 patch TOP DAILY 09/28/19 Lisinopril [Prinivil 5 mg Tablet] 5 mg PO DAILY 09/28/19 Metoprolol Tartrate [Lopressor 25 mg Tablet] 25 mg PO Q12 09/28/19 Nifedipine [Nifedipine ER] 90 mg PO DAILY 09/28/19 Quetiapine Fumarate 200 mg PO QHS 09/28/19 Allergies/Adverse Reactions: codeine Allergy (Verified 09/28/19 15:05) Itching latex Allergy (Verified 09/28/19 15:05) Hives liothyronine [From Cytomel] Allergy (Verified 09/28/19 15:05) Shortness of Breath morphine [Morphine] Allergy (Verified 09/28/19 15:05) Itching nalbuphine [From Nubain] Allergy (Verified 09/28/19 15:05) Itching hydrocodone Adverse Reaction (Mild, Verified 09/28/19 15:05) Rash plastic tape Allergy (Uncoded 09/28/19 15:05) Itching Review of Systems ROS unobtainable: Due to endotracheal tube Physical Exam Vital Signs: Temp Pulse Resp BP Pulse Ox 100.9 F H 128 H 31 H 85/50 L 93 10/21/19 07:16 10/21/19 07:16 10/21/19 07:16 10/21/19 07:16 10/21/19 07:16 Intake & Output 10/20/19 10/21/19 10/22/19 06:59 06:59 06:59 Intake Total 797 Balance 797 Weight 62.4 kg General appearance: PRESENT: severe distress - on ventilator support at the time of my bedside evaluation. Head exam: PRESENT: atraumatic, normocephalic Respiratory exam: PRESENT: decreased breath sounds - at lung bases, rhonchi Cardiovascular exam: PRESENT: RRR. ABSENT: diastolic murmur, rubs, systolic murmur Vascular exam: ABSENT: pallor GI/Abdominal exam: PRESENT: normal bowel sounds, soft Rectal exam: PRESENT: deferred Extremities exam: ABSENT: pedal edema Neurological exam: PRESENT: altered - sedated Skin exam: PRESENT: dry, warm, other - Trilysis catheter over right antrerior chest wall Results Laboratory Results: 10/20/19 09:02 10/20/19 09:02 10/20/19 10/20/19 10/20/19 09:02 09:02 09:02 WBC 19.9 H RBC 3.48 L Hgb 10.8 L Hct 32.0 L MCV 92 MCH 31.1 MCHC 33.7 RDW 13.4 Plt Count 132 L Seg Neutrophils % Not Reportable Carbonic Acid HCO3/H2CO3 Ratio ABG pH ABG pCO2 ABG pO2 ABG HCO3 ABG O2 Saturation ABG Base Excess VBG pH 7.36 VBG pCO2 43.0 VBG HCO3 23.9 VBG Base Excess -1.7 FiO2 Sodium 126.4 L Potassium 3.0 L* Chloride 92 L Carbon Dioxide 22 Anion Gap 12 BUN 26 H Creatinine 2.54 H Est GFR ( Amer) 23 L Glucose 196 H Lactic Acid Calcium 6.4 L* Magnesium Total Bilirubin 0.5 AST 72 H Alkaline Phosphatase 64 Total Protein 5.3 L Albumin 2.8 L Urine Color Urine Appearance Urine pH Ur Specific [place] Urine Protein Urine Glucose (UA) Urine Ketones Urine Blood Urine Nitrite Ur Leukocyte Esterase Urine WBC (Auto) Urine RBC (Auto) 10/20/19 10/20/19 10/20/19 09:02 09:02 12:50 WBC RBC Hgb Hct MCV MCH MCHC RDW Plt Count Seg Neutrophils % Carbonic Acid HCO3/H2CO3 Ratio ABG pH ABG pCO2 ABG pO2 ABG HCO3 ABG O2 Saturation ABG Base Excess VBG pH VBG pCO2 VBG HCO3 VBG Base Excess FiO2 Sodium Potassium Chloride Carbon Dioxide Anion Gap BUN Creatinine Est GFR ( Amer) Glucose Lactic Acid 1.6 Calcium Magnesium 1.5 L Total Bilirubin AST Alkaline Phosphatase Total Protein Albumin Urine Color YELLOW Urine Appearance CLOUDY Urine pH 7.0 Ur Specific [place] 1.011 Urine Protein >=500 H Urine Glucose (UA) >=500 H Urine Ketones TRACE H Urine Blood MODERATE H Urine Nitrite NEGATIVE Ur Leukocyte Esterase NEGATIVE Urine WBC (Auto) 29 Urine RBC (Auto) 23 10/20/19 10/20/19 10/20/19 13:34 17:09 20:00 WBC RBC Hgb Hct MCV MCH MCHC RDW Plt Count Seg Neutrophils % Carbonic Acid 0.80 L HCO3/H2CO3 Ratio 25:1 ABG pH 7.50 H ABG pCO2 26.7 L ABG pO2 56.9 L ABG HCO3 20.5 ABG O2 Saturation 92.5 L ABG Base Excess -1.3 VBG pH VBG pCO2 VBG HCO3 VBG Base Excess FiO2 27% Sodium Potassium Chloride Carbon Dioxide Anion Gap BUN Creatinine Est GFR ( Amer) Glucose Lactic Acid 1.7 1.4 Calcium Magnesium Total Bilirubin AST Alkaline Phosphatase Total Protein Albumin Urine Color Urine Appearance Urine pH Ur Specific [place] Urine Protein Urine Glucose (UA) Urine Ketones Urine Blood Urine Nitrite Ur Leukocyte Esterase Urine WBC (Auto) Urine RBC (Auto) 10/21/19 08:05 WBC RBC Hgb Hct MCV MCH MCHC RDW Plt Count Seg Neutrophils % Carbonic Acid 0.91 L HCO3/H2CO3 Ratio 19:1 ABG pH 7.39 ABG pCO2 30.1 L ABG pO2 63.2 L ABG HCO3 17.8 L ABG O2 Saturation 92.4 L ABG Base Excess -6.0 VBG pH VBG pCO2 VBG HCO3 VBG Base Excess FiO2 45% Sodium Potassium Chloride Carbon Dioxide Anion Gap BUN Creatinine Est GFR ( Amer) Glucose Lactic Acid Calcium Magnesium Total Bilirubin AST Alkaline Phosphatase Total Protein Albumin Urine Color Urine Appearance Urine pH Ur Specific [place] Urine Protein Urine Glucose (UA) Urine Ketones Urine Blood Urine Nitrite Ur Leukocyte Esterase Urine WBC (Auto) Urine RBC (Auto) 10/20/19 09:02 Blood Blood Culture (PCR) - Final Staphylococcus Aureus 10/20/19 09:02 Blood Blood Culture (PCR) - Final Staphylococcus Aureus Impressions: Chest X-Ray 10/20/19 00:00 IMPRESSION: Few Nohemy B-lines noted within the left hemithorax possibly mild asymmetric interstitial edema or scarring. No other evidence of acute cardiopulmonary process. Chest CT 10/20/19 12:41 IMPRESSION: 1. Mild lower lobe consolidation, likely atelectasis. Addition patchy bilateral areas of ground-glass attenuation which are nonspecific and may represent infectious/inflammatory process, including viral pneumonias. 2. Interlobular septal thickening suggestive of mild interstitial edema. Small pericardial effusion. Head CT 10/20/19 18:11 IMPRESSION: NORMAL BRAIN CT WITHOUT CONTRAST. EVIDENCE OF ACUTE STROKE: NO. Assessment & Plan - Diagnosis (1) Acute respiratory failure with hypoxia and hypercapnia Is this a current diagnosis for this admission?: Yes Plan: See covering admitting attending physician orders for details of care plan. (2) Pneumonia Qualifiers: Pneumonia type: due to unspecified organism Laterality: bilateral Lung location: lower lobe of lung Qualified Code(s): J18.9 - Pneumonia, unspecified organism Is this a current diagnosis for this admission?: Yes Plan: See covering admitting attending physician orders for details of care plan. (3) COPD (chronic obstructive pulmonary disease) Qualifiers: COPD type: unspecified COPD Qualified Code(s): J44.9 - Chronic obstructive pulmonary disease, unspecified Is this a current diagnosis for this admission?: Yes Plan: See covering admitting attending physician orders for details of care plan. (4) ESRD on hemodialysis Is this a current diagnosis for this admission?: Yes Plan: See covering admitting attending physician orders for details of care plan. - Time Time Spent: 50 to 70 Minutes Medications reviewed and adjusted accordingly: Yes Anticipated Discharge Disposition: [facility] Facility Anticipated Discharge Timeframe: within 72 hours - Inpatient Certification Based on my medical assessment, after consideration of the patient's comorbidities, presenting symptoms, or acuity I expect that the services needed warrant INPATIENT care.: Yes I certify that my determination is in accordance with my understanding of Medicare's requirements for reasonable and necessary INPATIENT services [42 CFR 412.3e].: Yes Medical Necessity: Significant Comorbidiites Make Outpatient Treatment Too Risky, Need Close Monitoring Due to Risk of Patient Decompensation, Need For IV Fluids, Need For Continuous Telemetry Monitoring, Need for IV Antibiotics, Risk of Complication if Not Cared For in Hospital, Risk of Diagnosis Which Will Require Inpatient Eval/Care/Monitoring Post Hospital Care: D/C or Transfer Summary - Plan Summary Plan Summary: See covering admitting attending physician orders for details of care plan.
[2019-10-21] MEDS: ALBUMIN HUMAN 12.5 GM/50 ML RTUINJ IV SCH ×4 (19:15→23:00)
[2019-10-21] MEDS ORDERED: HYDROCORTISONE SOD SUCCINATE INJ/PF 100 MG/2 ML SDV IV ONE (19:30)
[2019-10-21] MEDS: CEFEPIME 1 GM/D5W RTU 1 GM/50 ML RTUPB IV SCH ×2 (19:54→21:00)
[2019-10-21 20:03] LABS: ALBUMIN 1.9 g/dL (3.5-5.0); ALKALINE PHOSPHATASE 48 U/L (38-126); ANION GAP 10 (5-19); ASPARTATE AMINO TRANSFERASE 128 U/L (14-36); BILIRUBIN,DIRECT 0.3 mg/dL (0.0-0.4); BILIRUBIN,TOTAL 0.3 mg/dL (0.2-1.3); BLOOD UREA NITROGEN 56 mg/dL (7-20); CARBON DIOXIDE 21 mmol/L (22-30); CHLORIDE 99 mmol/L (98-107); GLUCOSE 196 mg/dL (75-110); POTASSIUM 3.9 mmol/L (3.6-5.0)
[2019-10-21 20:14] LABS: CALCIUM 5.8 mg/dL (8.4-10.2)
[2019-10-21] MEDS: DEXMEDETOMIDINE IN 0.9 % NACL 400 MCG/100 ML RTUPB IV PRN (22:25)
[2019-10-22] MEDS: ACETAMINOPHEN 650 MG SUPP.RECT PR PRN ×2 (02:02→22:06)
[2019-10-22] MEDS ORDERED: HYDROCORTISONE SOD SUCCINATE INJ/PF 100 MG/2 ML SDV IV SCH (06:00)
[2019-10-22] MEDS: HEPARIN SOD (PORCINE) 5,000 UNIT/ML 1 ML VIAL SUBCUT SCH ×3 (06:13→22:07)
[2019-10-22 06:55] LABS: ARTERIAL BLOOD BASE EXCESS -8.7 mmol/L; ARTERIAL BLOOD H2CO3 0.99 mmol/L (1.05-1.35); ARTERIAL BLOOD HCO3 16.5 mmol/L (20-24); ARTERIAL BLOOD O2 SATURATION 91.8 % (94-98); ARTERIAL BLOOD PH 7.32 (7.35-7.45); ARTERIAL BLOOD TOTAL CO2 17.6 mmol/L (21-25); HEMATOCRIT 26.6 % (36.0-47.0); MEAN CORPUSCULAR HEMOGLOBIN 31.2 pg (27.0-33.4); MEAN CORPUSCULAR HGB CONC 33.4 g/dL (32.0-36.0); MEAN CORPUSCULAR VOLUME 94 fl (80-97); RED BLOOD COUNT 2.84 10^6/uL (3.72-5.28); WHITE BLOOD COUNT 13.8 10^3/uL (4.0-10.5)
[2019-10-22 06:59] LABS: ARTERIAL BLOOD FIO2 65%
[2019-10-22] MEDS: DEXTROSE 5%-WATER 250 ML with NOREPINEPHRINE BITARTRATE 4 MG IV PRN ×6 (07:02→22:08)
[2019-10-22 07:09] LABS: ANION GAP 13 (5-19); BLOOD UREA NITROGEN 59 mg/dL (7-20); CARBON DIOXIDE 17 mmol/L (22-30); CHLORIDE 98 mmol/L (98-107); GLUCOSE 197 mg/dL (75-110); POTASSIUM 4.2 mmol/L (3.6-5.0)
[2019-10-22 07:23] LABS: CALCIUM 5.5 mg/dL (8.4-10.2)
[2019-10-22 07:32] LABS: HEMOGLOBIN 8.9 g/dL (12.0-15.5); PLATELET COUNT 95 10^3/uL (150-450)
[2019-10-22 07:34] LABS: ABSOLUTE LYMPHOCYTES# (MANUAL) 1.1 10^3/uL (0.5-4.7); ABSOLUTE MONOCYTES # (MANUAL) 0.7 10^3/uL (0.1-1.4); BAND NEUTROPHILS % (MANUAL) 5 % (3-5); BASOPHILS % (MANUAL) 0 % (0-2); EOSINOPHILS % (MANUAL) 0 % (0-6); LYMPHOCYTES % (MANUAL) 8 % (13-45); MONOCYTES % (MANUAL) 5 % (3-13); SEGMENTED NEUTROPHILS % (MAN) 82 % (42-78); TOTAL CELLS COUNTED 100
[2019-10-22 07:37] LABS: ANISOCYTOSIS SLIGHT; PLATELET COMMENT DECREASED; TOXIC GRANULATION 2+
--- NOTE | 2019-10-22 08:24 | RADIOLOGY REPORT (SQ) ---
EXAM DESCRIPTION: CHEST SINGLE VIEW IMAGES COMPLETED DATE/TIME: 10/22/2019 6:24 am REASON FOR STUDY: vent COMPARISON: 10/21/2019 FINDINGS: AP portable semi-upright image. Relatively stable chest. Endotracheal, nasogastric tubes, right IJ catheter and left subclavian line all look appropriate and stable. Opacity over the left lateral chest wall, unchanged. Mild density in the adjacent left lung may be a rtifact. No pneumothorax. TECHNICAL DOCUMENTATION: JOB ID: [id number] Reading location - IP/workstation name: [email or web address]
--- NOTE | 2019-10-22 09:34 | PDOC CRITICAL CARE PROG REPORT ---
General Date:: 10/22/19 ICU Day:: 2 Ventilator Day:: 2 Hospital Day:: 2 Resuscitation Status: Full Code Events in the past 12 to 24 Hours:: Still febrile, not hypoadrenal, still on pressors. Review of systems relevant to events:: CV, pulmonary, renal Reason for ICU Addmission:: Obtunded witrh agonal breathing, hypotension and meeting criteria for septic shock. - Medications: Medications reviewed and adjusted accordingly: Yes Vasopressors:: Vasopressin, levophed. Sedation:: Precedex Physical Exam Vital Signs: Temp Pulse Resp BP Pulse Ox 102.7 F H 86 17 73/51 L 97 10/22/19 06:42 10/22/19 08:00 10/22/19 08:09 10/22/19 08:09 10/22/19 08:08 Intake & Output 10/21/19 10/22/19 10/23/19 06:59 06:59 06:59 Intake Total 797 5844 Output Total 1715 Balance 797 4129 Weight 62.4 kg 59.9 kg Weight/Height Weight 59.9 kg Height 5 ft 4 in General appearance: PRESENT: no acute distress, thin Head exam: PRESENT: atraumatic, normocephalic Eye exam: PRESENT: conjunctiva pink, EOMI, PERRLA. ABSENT: scleral icterus Ear exam: PRESENT: normal external ear exam Neck exam: PRESENT: other - Scar on R of unknown cause.. ABSENT: carotid bruit, JVD, lymphadenopathy, thyromegaly Respiratory exam: PRESENT: crackles - Dry crackles like sand paper., decreased breath sounds Cardiovascular exam: PRESENT: RRR. ABSENT: diastolic murmur, rubs, systolic murmur GI/Abdominal exam: PRESENT: normal bowel sounds, soft. ABSENT: distended, guarding, mass, organolmegaly, rebound, tenderness Gentrourinary exam: PRESENT: indwelling catheter Extremities exam: PRESENT: full ROM. ABSENT: calf tenderness, clubbing, pedal edema Musculoskeletal exam: PRESENT: normal inspection Neurological exam: PRESENT: altered, other - Sedated Tubes/Lines: PRESENT: Endotracheal Tube, Central Line, Dialysis catheter, Nasogastic Tube Laboratory/Radiographs Laboratory Results: 10/22/19 06:19 10/22/19 06:19 10/21/19 10/21/19 10/21/19 09:15 09:15 09:15 WBC 23.8 H RBC 3.60 L Hgb 11.3 L Hct 33.3 L MCV 92 MCH 31.5 MCHC 34.1 RDW 14.1 H Plt Count 122 L Seg Neutrophils % Not Reportable Carbonic Acid HCO3/H2CO3 Ratio ABG pH ABG pCO2 ABG pO2 ABG HCO3 ABG O2 Saturation ABG Base Excess FiO2 Sodium 133.1 L Potassium 3.7 Chloride 99 Carbon Dioxide 21 L Anion Gap 13 BUN 51 H Creatinine 4.09 H Est GFR ( Amer) 13 L Glucose 200 H Lactic Acid 2.8 H Calcium 6.0 L* Ionized Calcium Claire Magnesium Total Bilirubin 0.5 AST 130 H Alkaline Phosphatase 57 Total Protein 4.7 L Albumin 2.3 L 10/21/19 10/21/19 10/21/19 09:15 13:55 19:16 WBC RBC Hgb Hct MCV MCH MCHC RDW Plt Count Seg Neutrophils % Carbonic Acid 0.95 L HCO3/H2CO3 Ratio 19:1 ABG pH 7.38 ABG pCO2 31.6 L ABG pO2 107.6 H ABG HCO3 18.4 L ABG O2 Saturation 97.9 ABG Base Excess -5.8 FiO2 100% Sodium 129.7 L Potassium 3.9 Chloride 99 Carbon Dioxide 21 L Anion Gap 10 BUN 56 H Creatinine 4.09 H Est GFR ( Amer) 13 L Glucose 196 H Lactic Acid Calcium 5.8 L* Ionized Calcium Claire 0.91 L Magnesium Total Bilirubin 0.3 AST 128 H Alkaline Phosphatase 48 Total Protein 4.0 L Albumin 1.9 L 10/22/19 10/22/19 10/22/19 06:19 06:19 06:19 WBC 13.8 H RBC 2.84 L Hgb 8.9 L D Hct 26.6 L MCV 94 MCH 31.2 MCHC 33.4 RDW 14.0 Plt Count 95 L Seg Neutrophils % Not Reportable Carbonic Acid 0.99 L HCO3/H2CO3 Ratio 16:1 ABG pH 7.32 L ABG pCO2 33.0 L ABG pO2 66.0 L ABG HCO3 16.5 L ABG O2 Saturation 91.8 L ABG Base Excess -8.7 FiO2 65% Sodium 128.3 L Potassium 4.2 Chloride 98 Carbon Dioxide 17 L Anion Gap 13 BUN 59 H Creatinine 4.09 H Est GFR ( Amer) 13 L Glucose 197 H Lactic Acid Calcium 5.5 L* Ionized Calcium Claire Magnesium 1.9 Total Bilirubin AST Alkaline Phosphatase Total Protein Albumin 10/20/19 09:02 Blood Blood Culture (PCR) - Final Staphylococcus Aureus 10/20/19 12:50 Clean Catch Midstream Urine Culture - Final Mixed Urogenital Agueda Impressions: Chest CT 10/20/19 12:41 IMPRESSION: 1. Mild lower lobe consolidation, likely atelectasis. Addition patchy bilateral areas of ground-glass attenuation which are nonspecific and may represent infectious/inflammatory process, including viral pneumonias. 2. Interlobular septal thickening suggestive of mild interstitial edema. Small pericardial effusion. Head CT 10/20/19 18:11 IMPRESSION: NORMAL BRAIN CT WITHOUT CONTRAST. EVIDENCE OF ACUTE STROKE: NO. EKG: Sinus tachycardia. All labs, radiographs, diagnostic studies and EKGs were personally reviewed: Yes In addition, reports of radiographic and diagnostic studies were read: Yes Assessment and Plan - Diagnosis (1) Septic shock Is this a current diagnosis for this admission?: Yes Plan: Still in an element of shock. BC growing MRSA. On linezolid. HD catheter still of concern. Awaiting final cultures. (2) COPD (chronic obstructive pulmonary disease) Qualifiers: COPD type: unspecified COPD Qualified Code(s): J44.9 - Chronic obstructive pulmonary disease, unspecified Is this a current diagnosis for this admission?: Yes Plan: No wheezing, breath sounds distant. (3) End stage chronic kidney disease Is this a current diagnosis for this admission?: Yes Plan: If cather is infected it may need removal and temporary catheter placed. No HD need right now. (4) Respiratory failure Qualifiers: Chronicity: acute Is this a current diagnosis for this admission?: Yes Plan: She still is not stable for weaning and extubation. (5) CAD (coronary artery disease) Qualifiers: Coronary Disease-Associated Artery/Lesion type: [place] artery [place] vs. transplanted heart: [place] heart Associated angina: angina presence unspecified Qualified Code(s): I25.10 - Atherosclerotic heart disease of [place] coronary artery without angina pectoris Is this a current diagnosis for this admission?: Yes Plan: Inactive. (6) Cigarette smoker Is this a current diagnosis for this admission?: Yes (7) Malnutrition Qualifiers: Malnutrition type: protein-calorie malnutrition Protein-calorie malnutrition severity: moderate Qualified Code(s): E44.0 - Moderate protein- calorie malnutrition Is this a current diagnosis for this admission?: Yes Plan: This is at least moderate. She is on 2 pressors and will likely not tolerate PO feedings. If this continues she will need TPN soon. Plan Summary: Wean levophed, vasopressin seems more effective. She is not hypoadrenal, IV cortisol stopped. Critical Time Critical Time (minutes): 45 Level of Care: ICU Anticipated discharge: Acute Rehab Anticipated DC Timeframe: Other -: 1. The care of a critical patient is a dynamic process. This note is a automotive sales representative synopsis but static in nature. The timeframe for treatments given in order is not necessarily the actual time these treatments may have been done. 2. This patient requires critical care secondary to ongoing requirements for therapy not offered or safe outside the critical care environment. Transfer to a lower level of care will result in altered life or limb morbidity and mortality. 3. Multidisciplinary rounds completed. 4. ABCDE bundle addressed.
[2019-10-22] MEDS ORDERED: CALCIUM GLUCONATE 1000 MG/10 ML INJ IV ONE (09:35)
[2019-10-22] MEDS: CEFEPIME 1 GM/D5W RTU 1 GM/50 ML RTUPB IV SCH (09:54)
[2019-10-22] MEDS: LINEZOLID 600 MG/300 ML RTUPB IV SCH ×2 (09:54→22:06)
[2019-10-22] MEDS: PANTOPRAZOLE SODIUM 40 MG VIAL IV SCH (09:55)
[2019-10-22] MEDS: ASCORBIC ACID 500 MG TABLET PO SCH (09:56)
[2019-10-22] MEDS: NORMAL SALINE 1000 ML 1,000 ML IV PRN ×2 (09:57→18:52)
--- NOTE | 2019-10-22 10:54 | Progress Note ---
Provider Note Provider Note: Patient's dialysis catheter placed by Dr. Saud Morales of [facility] [place]. .
[2019-10-22] MEDS: CALCIUM GLUCONATE 1 GM/NS 50 ML RTU IV SCH ×4 (12:35→17:45)
[2019-10-22] MEDS: DEXMEDETOMIDINE IN 0.9 % NACL 400 MCG/100 ML RTUPB IV PRN (13:28)
[2019-10-22] MEDS: DEXTROSE 5%-WATER 250 ML with VASOPRESSIN 100 UNIT IV PRN ×2 (22:08)
[2019-10-23] MEDS: IPRATROPIUM/ALBUTEROL 0.5-2.5 MG/3 ML AMPUL NEB PRN (04:19)
[2019-10-23] MEDS: FENTANYL CITRATE INJ/PF 100 MCG/2 ML AMPUL IV PRN ×2 (04:36→09:40)
[2019-10-23] MEDS: PROPOFOL 1,000 MG/100 ML INFUS..BTL IV PRN ×2 (04:37→14:55)
[2019-10-23] MEDS: NORMAL SALINE 1000 ML 1,000 ML IV PRN ×3 (04:37→19:54)
[2019-10-23] MEDS ORDERED: HEPARIN SOD (PORCINE) 1,000 UNIT/ML 10 ML VIAL IV PRN (05:00)
[2019-10-23] MEDS: HEPARIN SOD (PORCINE) 5,000 UNIT/ML 1 ML VIAL SUBCUT SCH ×3 (05:26→22:33)
[2019-10-23 05:29] LABS: ARTERIAL BLOOD BASE EXCESS -13.5 mmol/L; ARTERIAL BLOOD H2CO3 1.17 mmol/L (1.05-1.35); ARTERIAL BLOOD O2 SATURATION 79.9 % (94-98); ARTERIAL BLOOD PO2 54.2 mmHg (80-100); ARTERIAL BLOOD TOTAL CO2 15.2 mmol/L (21-25); HEMATOCRIT 25.2 % (36.0-47.0); HEMOGLOBIN 8.3 g/dL (12.0-15.5); MEAN CORPUSCULAR HEMOGLOBIN 30.9 pg (27.0-33.4); MEAN CORPUSCULAR VOLUME 94 fl (80-97); RED BLOOD COUNT 2.69 10^6/uL (3.72-5.28); RED CELL DISTRIBUTION WIDTH 14.6 % (11.5-14.0); WHITE BLOOD COUNT 15.2 10^3/uL (4.0-10.5)
[2019-10-23 05:32] LABS: PLATELET COUNT 83 10^3/uL (150-450)
[2019-10-23 05:49] LABS: ABSOLUTE LYMPHOCYTES# (MANUAL) 2.7 10^3/uL (0.5-4.7); ABSOLUTE MONOCYTES # (MANUAL) 1.5 10^3/uL (0.1-1.4); BAND NEUTROPHILS % (MANUAL) 5 % (3-5); BASOPHILS % (MANUAL) 0 % (0-2); EOSINOPHILS % (MANUAL) 0 % (0-6); LYMPHOCYTES % (MANUAL) 18 % (13-45); MONOCYTES % (MANUAL) 10 % (3-13); SEGMENTED NEUTROPHILS % (MAN) 67 % (42-78); TOTAL CELLS COUNTED 100
[2019-10-23 05:50] LABS: ARTERIAL BLOOD FIO2 80%; PLATELET COMMENT DECREASED; RBC MORPHOLOGY COMMENT NORMO-CYTIC/CHROMIC
[2019-10-23 05:51] LABS: ARTERIAL BLOOD PH 7.17 (7.35-7.45)
[2019-10-23 06:01] LABS: ALBUMIN 1.9 g/dL (3.5-5.0); ALKALINE PHOSPHATASE 51 U/L (38-126); ANION GAP 14 (5-19); ASPARTATE AMINO TRANSFERASE 119 U/L (14-36); BILIRUBIN,DIRECT 0.5 mg/dL (0.0-0.4); BILIRUBIN,TOTAL 0.5 mg/dL (0.2-1.3); BLOOD UREA NITROGEN 65 mg/dL (7-20); CARBON DIOXIDE 14 mmol/L (22-30); CHLORIDE 99 mmol/L (98-107); GLUCOSE 145 mg/dL (75-110); POTASSIUM 4.1 mmol/L (3.6-5.0)
[2019-10-23] MEDS ORDERED: SODIUM BICARBONATE 8.4% INJ 50 MEQ/50 ML DISP.SYRIN IV ONE ×2 (06:03→10:00)
[2019-10-23 06:15] LABS: CALCIUM 5.5 mg/dL (8.4-10.2)
--- NOTE | 2019-10-23 08:27 | RADIOLOGY REPORT (SQ) ---
EXAM DESCRIPTION: CHEST SINGLE VIEW IMAGES COMPLETED DATE/TIME: 10/23/2019 6:36 am REASON FOR STUDY: vent COMPARISON: 10/22/2019 EXAM PARAMETERS: NUMBER OF VIEWS: One view. TECHNIQUE: Single frontal radiographic view of the chest acquired. RADIATION DOSE: NA LIMITATIONS: None. FINDINGS: LUNGS AND PLEURA: Patchy bilateral interstitial and alveolar opacities, mildly increased o n the left. Small left effusion. No pneumothorax. MEDIASTINUM AND HILAR STRUCTURES: No masses. Contour normal. HEART AND VASCULAR STRUCTURES: Stable. Vascular calcifications. BONES: No acute findings. HARDWARE: Right internal jugular tunneled hemodialysis catheter tip at right atrium. Endotracheal tu be tip overlies midthoracic trachea. Left subclavian central venous catheter tip at SVC. Enteric tu be tip overlies gastric body. OTHER: No other significant finding. IMPRESSION: Patchy bilateral interstitial and alveolar opacities, mildly increased on the left. Sma ll left pleural effusion. Stable support lines and tubes as above. TECHNICAL DOCUMENTATION: JOB ID: [id number] 2010 [employer]- All Rights Reserved Reading location - IP/workstation name: [email or web address]
[2019-10-23] MEDS: DEXTROSE 5%-WATER 250 ML with NOREPINEPHRINE BITARTRATE 4 MG IV PRN ×4 (08:44→17:51)
[2019-10-23] MEDS ORDERED: SODIUM BICARBONATE 8.4% INJ 50 MEQ/50 ML DISP.SYRIN ONE (09:02)
[2019-10-23] MEDS: PANTOPRAZOLE SODIUM 40 MG VIAL IV SCH (09:06)
[2019-10-23] MEDS: LINEZOLID 600 MG/300 ML RTUPB IV SCH ×2 (09:07→22:30)
[2019-10-23] MEDS: SODIUM BICARBONATE 650 MG TABLET PO SCH ×2 (09:07→22:29)
[2019-10-23] MEDS: ASCORBIC ACID 500 MG TABLET NG SCH (09:07)
--- NOTE | 2019-10-23 10:39 | PDOC CONSULTATION ---
Consultation Consult Date: 10/23/19 Provider Consulted: Storm JAMES Consult reason:: ESRD in septic shock History of Present Illness Admission Date/PCP: 10/21/19 03:33 SHARON RICK PA-C History of Present Illness: CRISTIANE LOVE is a 64 year old female with a history of multiple comorbidities which includes longstanding diabetes mellitus, hypertension, ESRD on hemodialysis just recently initiated on HD, COPD, bipolar disorder, history of cancers of the thyroid and breast in the past, history of severe noncompliance was admitted with history history of progressive shortness of breath cough, cough and fever of unknown days duration. She went into severe respiratory failure soon after her arrival in the ER and was intubated and transferred to the ICU. Currently she is on pressors and barely able to maintain blood pressures. Therefore chart review was done and discussions were done with the treating nurse. Her COVID labs are still pending. Labs and medications were reviewed. Dialysis orders were reviewed with the treating dialysis nurse. Past Medical History Cardiac Medical History: Reports: Coronary Artery Disease, Hyperlipidemia, Hypertension-primary, Pulmonary Embolism Denies: Myocardial Infarction Pulmonary Medical History: Reports: Asthma, Bronchitis, Chronic Obstructive Pulmonary Disease (COPD), Pneumonia, Sleep Apnea Denies: Tuberculosis Neurological Medical History: Denies: Seizures Endocrine Medical History: Reports: Diabetes Mellitus Type 2, Hypothyroidism Renal/ Medical History: Reports: End Stage Renal Disease, Secondary Hyperparathyroidism Malignancy Medical History: Reports: Breast Cancer GI Medical History: Reports: Gastroesophageal Reflux Disease Musculoskeltal Medical History: Reports: Arthritis Psychiatric Medical History: Reports: Bipolar Disorder, Depression Hematology Medical History: Reports Anemia of Chronic Kidney Disease Past Surgical History Past Surgical History: Reports: Appendectomy, Cardiac Catheterization - stent x 1, Cholecystectomy, Coronary Stent, Mastectomy - left side, pt states many years ago Social History Lives with: Spouse/Significant other Smoking Status: Current Every Day Smoker Electronic Cigarette use?: No Frequency of Alcohol Use: Rare Hx Recreational Drug Use: Yes Drugs: Heroin, Marijuana Hx Prescription Drug Abuse: No - Advance Directive Resuscitation Status: Full Code Family History Parental Family History Reviewed: No - Unable to contribute because she is intubated and sedated in the ICU. Children Family History Reviewed: No Sibling(s) Family History Reviewed.: No Medication/Allergy Home Medications: Calcitriol [Rocaltrol] 0.5 mcg PO BID 02/10/19 Cetirizine HCl [Zyrtec] 10 mg PO DAILY 02/10/19 Fenofibrate Nanocrystallized [Fenofibrate] 160 mg PO DAILY 02/10/19 Omeprazole 40 mg PO DAILY 02/10/19 Bupropion HCl [Bupropion Xl] 150 mg PO DAILY 09/28/19 Calcium Acetate [Phoslo 667 mg Capsule] 667 mg PO MEALS 09/28/19 Furosemide [Lasix 40 mg Tablet] 40 mg PO QAM 09/28/19 Gabapentin 300 mg PO QHS 09/28/19 Hydroxyzine Pamoate [Vistaril 25 mg Capsule] 25 mg PO BID 09/28/19 Insulin Glargine,Hum.rec.anlog [Lantus Insulin 100 Unit/mL Insulin Pen] 15 units SUBCUT QHS 09/28/19 Levothyroxine Sodium [Levo-T] 150 mcg PO Q6AM 09/28/19 Lidocaine [Lidoderm 5% (700 mg) Transdermal Patch] 1 patch TOP DAILY 09/28/19 Lisinopril [Prinivil 5 mg Tablet] 5 mg PO DAILY 09/28/19 Metoprolol Tartrate [Lopressor 25 mg Tablet] 25 mg PO Q12 09/28/19 Nifedipine [Nifedipine ER] 90 mg PO DAILY 09/28/19 Quetiapine Fumarate 200 mg PO QHS 09/28/19 Allergies/Adverse Reactions: codeine Allergy (Verified 09/28/19 15:05) Itching latex Allergy (Verified 09/28/19 15:05) Hives liothyronine [From Cytomel] Allergy (Verified 09/28/19 15:05) Shortness of Breath morphine [Morphine] Allergy (Verified 09/28/19 15:05) Itching nalbuphine [From Nubain] Allergy (Verified 09/28/19 15:05) Itching hydrocodone Adverse Reaction (Mild, Verified 09/28/19 15:05) Rash plastic tape Allergy (Uncoded 09/28/19 15:05) Itching Review of Systems ROS unobtainable: Due to endotracheal tube - Therefore chart review was done. Physical Exam Vital Signs: Temp Pulse Resp BP Pulse Ox 100.2 F 137 H 22 H 89/65 L 98 10/23/19 10:00 10/23/19 08:21 10/23/19 10:04 10/23/19 10:04 10/23/19 09:54 Intake & Output 10/22/19 10/23/19 10/24/19 06:59 06:59 06:59 Intake Total 6844 3653 113 Output Total 1715 110 8 Balance 5129 3543 105 Weight 59.9 kg 66.8 kg Exam: Intubated and sedated. She looks very critically ill. Eye exam: PRESENT: EOMI, PERRLA. ABSENT: scleral icterus Respiratory exam: PRESENT: clear to auscultation nuvia, decreased breath sounds. ABSENT: crackles Cardiovascular exam: PRESENT: +S1, +S2 GI/Abdominal exam: PRESENT: normal bowel sounds, soft. ABSENT: organomegaly, tenderness Extremities exam: PRESENT: pedal edema Neurological exam: PRESENT: altered Skin exam: ABSENT: erythema, mottled, rash Results Laboratory Results: 10/23/19 05:00 10/23/19 05:00 10/23/19 10/23/19 10/23/19 05:00 05:00 05:00 WBC RBC Hgb Hct MCV MCH MCHC RDW Plt Count Seg Neutrophils % Carbonic Acid 1.17 Cancelled HCO3/H2CO3 Ratio 11:1 Cancelled ABG pH 7.17 L* Cancelled ABG pCO2 39.0 Cancelled ABG pO2 54.2 L Cancelled ABG HCO3 14.0 L Cancelled ABG O2 Saturation 79.9 L Cancelled ABG Base Excess -13.5 Cancelled FiO2 80% Cancelled Sodium Potassium Chloride Carbon Dioxide Anion Gap BUN Creatinine Est GFR ( Amer) Glucose Calcium Ionized Calcium Claire 0.84 L Magnesium Total Bilirubin AST Alkaline Phosphatase Total Protein Albumin Triglycerides 887 H 10/23/19 10/23/19 05:00 05:00 WBC 15.2 H RBC 2.69 L Hgb 8.3 L Hct 25.2 L MCV 94 MCH 30.9 MCHC 33.0 RDW 14.6 H Plt Count 83 L Seg Neutrophils % Not Reportable Carbonic Acid HCO3/H2CO3 Ratio ABG pH ABG pCO2 ABG pO2 ABG HCO3 ABG O2 Saturation ABG Base Excess FiO2 Sodium 126.8 L Potassium 4.1 Chloride 99 Carbon Dioxide 14 L Anion Gap 14 BUN 65 H Creatinine 4.28 H Est GFR ( Amer) 13 L Glucose 145 H Calcium 5.5 L* Ionized Calcium Claire Magnesium 1.8 Total Bilirubin 0.5 AST 119 H Alkaline Phosphatase 51 Total Protein 4.0 L Albumin 1.9 L Triglycerides 10/21/19 14:15 Blood Blood Culture (PCR) - Final Staphylococcus Aureus 10/21/19 15:30 Blood Blood Culture (PCR) - Final Staphylococcus Aureus 10/20/19 09:02 Blood Blood Culture (PCR) - Final Staphylococcus Aureus 10/20/19 09:02 Blood Blood Culture - Final Mrsa (Meth Resis Staph Aureus) Impressions: Chest CT 10/20/19 12:41 IMPRESSION: 1. Mild lower lobe consolidation, likely atelectasis. Addition patchy bilateral areas of ground-glass attenuation which are nonspecific and may represent infectious/inflammatory process, including viral pneumonias. 2. Interlobular septal thickening suggestive of mild interstitial edema. Small pericardial effusion. Head CT 10/20/19 18:11 IMPRESSION: NORMAL BRAIN CT WITHOUT CONTRAST. EVIDENCE OF ACUTE STROKE: NO. Chest X-Ray 10/23/19 05:00 IMPRESSION: Patchy bilateral interstitial and alveolar opacities, mildly increased on the left. Small left pleural effusion. Stable support lines and tubes as above. Assessment & Plan - Diagnosis (1) ESRD on hemodialysis Is this a current diagnosis for this admission?: Yes Plan: Patient in septic shock. Underlying background of pneumonia. COVID status still pending. CT scan suggestive of likely covid pneumonia. Patient is critic ally ill and blood pressures are barely being maintained on double pressors. Plan to dialyze her with no fluid removal. If she continues to remain severely hypotensive and septic shock she would need CRRT which we do not have in this hospital. Dialysis orders reviewed with the treating dialysis nurse. (2) Pneumonia Qualifiers: Pneumonia type: due to unspecified organism Laterality: bilateral Lung location: lower lobe of lung Qualified Code(s): J18.9 - Pneumonia, unspecified organism Is this a current diagnosis for this admission?: Yes Plan: Radiologically she has pneumonia with CT scan suggestive of likely COVID pneumonia. Currently on antibiotics. Being managed by concrete float maker. (3) Septic shock Is this a current diagnosis for this admission?: Yes Plan: On double pressors. Critically ill. (4) Type 2 diabetes mellitus Qualifiers: Diabetes mellitus buttermaker continuous churn insulin use: unspecified buttermaker continuous churn insulin use status Diabetes mellitus complication status: with kidney complications Diabetes mellitus complication detail: with nephropathy Qualified Code(s): E11.21 - Type 2 diabetes mellitus with diabetic nephropathy Plan: Poorly controlled unfortunately. (5) Bipolar disorder Qualifiers: Active/Remission status: currently active Plan: Also on antipsychotics. This could be her underlying reason for her severe n oncompliance with diet medications and taking care of herself. (6) CVA (cerebral vascular accident) Qualifiers: CVA mechanism: unspecified Qualified Code(s): I63.9 - Cerebral infarction, unspecified Plan: Remote. With mild residual deficits apparently. (7) Hyponatremia Plan: See the response to dialysis. (8) Hypothyroidism Qualifiers: Hypothyroidism type: other Qualified Code(s): E03.8 - Other specified hypothyroidism Plan: To be replaced as per concrete float maker. (9) Hypocalcemia Plan: Suggest [id number] IV calcium.Would also consider IV D3 agents.Unfortunately after checking with pharmacy we do not have any in house and so will treat with PO calcitriol via NG tube. (10) Cigarette smoker Is this a current diagnosis for this admission?: Yes Plan: Status quo. (11) Metabolic acidosis Plan: Secondary to a combination of ESRD and septic shock. See the response to dialysis.
[2019-10-23] MEDS: CALCIUM GLUCONATE 1 GM/NS 50 ML RTU IV SCH ×2 (11:52→12:24)
--- NOTE | 2019-10-23 12:05 | PDOC CRITICAL CARE PROG REPORT ---
General Date:: 10/23/19 ICU Day:: 3 Resuscitation Status: Full Code Events in the past 12 to 24 Hours:: Still febrile, not hypoadrenal, still on pressors. The patient remains in the ICU onn the ventialtor. When she arrived a 3 days ago she was inseptic shock The patient has bilateral interstitial and alveolar opacities R>L. The patient has a tunnelled dialysis catheter placed prior to this admission. The patient has 3 positive blood culutres likely coming from her tunnellled catheter. It needs to come out. The patient has a fairly significant metabolic acidosis to sday. Her PH was 7.17 and there is an AG of about 14. The patient was administered 2 amps of bicarb at the start of her diaysis. I spoke to the surgical physician about taking out the catheter. The patient is on 11 mcg of levophed. Reason for ICU Addmission:: Obtunded witrh agonal breathing, hypotension and meeting criteria for septic shock. Physical Exam Vital Signs: Temp Pulse Resp BP Pulse Ox 100.2 F 137 H 19 110/71 96 10/23/19 10:00 10/23/19 08:21 10/23/19 10:19 10/23/19 10:19 10/23/19 11:04 Intake & Output 10/22/19 10/23/19 10/24/19 06:59 06:59 06:59 Intake Total 6844 3653 131 Output Total 1715 110 8 Balance 5129 3543 123 Weight 59.9 kg 66.8 kg Weight/Height Weight 66.8 kg Height 5 ft 4 in Head exam: PRESENT: atraumatic Eye exam: PRESENT: conjunctiva pink Ear exam: PRESENT: normal external ear exam Mouth exam: PRESENT: dry mucosa Neck exam: ABSENT: JVD, thyromegaly Respiratory exam: ABSENT: accessory muscle use Cardiovascular exam: PRESENT: RRR, tachycardia GI/Abdominal exam: PRESENT: distended. ABSENT: ascites Rectal exam: PRESENT: deferred Neurological exam: PRESENT: oriented to person - The patient opnes eyes but does not try to communicate with the provider and not moving., oriented to place, oriented to time, oriented to situation, CN II-XII grossly intact. ABSENT: awake, motor sensory deficit Laboratory/Radiographs Laboratory Results: 10/23/19 05:00 10/23/19 05:00 08/10/23/19 10/23/19 05:00 05:00 05:00 WBC RBC Hgb Hct MCV MCH MCHC RDW Plt Count Seg Neutrophils % Carbonic Acid 1.17 Cancelled HCO3/H2CO3 Ratio 11:1 Cancelled ABG pH 7.17 L* Cancelled ABG pCO2 39.0 Cancelled ABG pO2 54.2 L Cancelled ABG HCO3 14.0 L Cancelled ABG O2 Saturation 79.9 L Cancelled ABG Base Excess -13.5 Cancelled FiO2 80% Cancelled Sodium Potassium Chloride Carbon Dioxide Anion Gap BUN Creatinine Est GFR ( Amer) Glucose Calcium Ionized Calcium Claire 0.84 L Magnesium Total Bilirubin AST Alkaline Phosphatase Total Protein Albumin Triglycerides 887 H 10/23/19 10/23/19 05:00 05:00 WBC 15.2 H RBC 2.69 L Hgb 8.3 L Hct 25.2 L MCV 94 MCH 30.9 MCHC 33.0 RDW 14.6 H Plt Count 83 L Seg Neutrophils % Not Reportable Carbonic Acid HCO3/H2CO3 Ratio ABG pH ABG pCO2 ABG pO2 ABG HCO3 ABG O2 Saturation ABG Base Excess FiO2 Sodium 126.8 L Potassium 4.1 Chloride 99 Carbon Dioxide 14 L Anion Gap 14 BUN 65 H Creatinine 4.28 H Est GFR ( Amer) 13 L Glucose 145 H Calcium 5.5 L* Ionized Calcium Claire Magnesium 1.8 Total Bilirubin 0.5 AST 119 H Alkaline Phosphatase 51 Total Protein 4.0 L Albumin 1.9 L Triglycerides 10/21/19 14:15 Blood Blood Culture (PCR) - Final Staphylococcus Aureus 10/21/19 15:30 Blood Blood Culture (PCR) - Final Staphylococcus Aureus 10/20/19 09:02 Blood Blood Culture (PCR) - Final Staphylococcus Aureus 10/20/19 09:02 Blood Blood Culture - Final Mrsa (Meth Resis Staph Aureus) Impressions: Chest CT 10/20/19 12:41 IMPRESSION: 1. Mild lower lobe consolidation, likely atelectasis. Addition patchy bilateral areas of ground-glass attenuation which are nonspecific and may represent infectious/inflammatory process, including viral pneumonias. 2. Interlobular septal thickening suggestive of mild interstitial edema. Small pericardial effusion. Head CT 10/20/19 18:11 IMPRESSION: NORMAL BRAIN CT WITHOUT CONTRAST. EVIDENCE OF ACUTE STROKE: NO. Chest X-Ray 08/24/20 05:00 IMPRESSION: Patchy bilateral interstitial and alveolar opacities, mildly increased on the left. Small left pleural effusion. Stable support lines and tubes as above. All labs, radiographs, diagnostic studies and EKGs were personally reviewed: Yes In addition, reports of radiographic and diagnostic studies were read: Yes Assessment and Plan - Diagnosis (1) Septic shock Is this a current diagnosis for this admission?: Yes Plan: The patient has received bicarb for themetabolioc acidosis and the dialysis mnmay help as well. In the interim she is onpressors witrh Levophed at 11 mcg/min. The patient is on Zyvoxx for her MRSA bacteremia. She has had 3 positivbe separate cutlutres. (2) COPD (chronic obstructive pulmonary disease) Qualifiers: COPD type: unspecified COPD Qualified Code(s): J44.9 - Chronic obstructive pulmonary disease, unspecified Is this a current diagnosis for this admission?: Yes Plan: No wheezing, breath sounds distant. The patient is on the ventialtor. She is getting duoneb treatments ABG shows a metabolic acidosis. (3) ESRD on hemodialysis Is this a current diagnosis for this admission?: Yes Plan: The patient is getting dialyzed tiw. [id number], it appears that her tunnellled cathter will need to come out anmd be replaced by a new catheter in 24-48 hours. The patient is getting dialysis today. (4) Hypocalcemia Is this a current diagnosis for this admission?: Yes Plan: The patient has been getting supllemental IV calcium (5) Hypothyroidism Qualifiers: Hypothyroidism type: other Qualified Code(s): E03.8 - Other specified hypothyroidism Is this a current diagnosis for this admission?: Yes Plan: The patient is getting her home syntrhoid at this time. Critical Time Critical Time (minutes): 40 Level of Care: ICU -: 1. The care of a critical patient is a dynamic process. This note is a solar sales representative and assessor synopsis but static in nature. The timeframe for treatments given in order is not necessarily the actual time these treatments may have been done. 2. This patient requires critical care secondary to ongoing requirements for therapy not offered or safe outside the critical care environment. Transfer to a lower level of care will result in altered life or limb morbidity and mortality. 3. Multidisciplinary rounds completed. 4. ABCDE bundle addressed.
[2019-10-23] MEDS: CALCITRIOL 1 MCG/ML ORAL SOLN 15 ML PO SCH ×2 (12:13→12:33)
[2019-10-23] MEDS: CALCITRIOL 1 MCG/ML ORAL SOLN 15 ML NG SCH (12:24)
[2019-10-23 12:35] LABS: ARTERIAL BLOOD BASE EXCESS -1.7 mmol/L; ARTERIAL BLOOD H2CO3 1.13 mmol/L (1.05-1.35); ARTERIAL BLOOD HCO3 22.9 mmol/L (20-24); ARTERIAL BLOOD O2 SATURATION 84.5 % (94-98); ARTERIAL BLOOD PCO2 37.6 mmHg (35-45); ARTERIAL BLOOD PO2 48.4 mmHg (80-100)
[2019-10-23 12:36] LABS: ARTERIAL BLOOD FIO2 75%
[2019-10-23] MEDS ORDERED: LIDOCAINE 1% INJ-PF (10 MG/ML) 30 ML SDV ONE (12:47)
--- NOTE | 2019-10-23 14:15 | Operative Report ---
Operative Report DATE OF SURGERY: 10/23/19 PREOPERATIVE DIAGNOSIS: 1. Infected right IJ permacatheter. 2. Respiratory f ailure. 3. Septic shock POSTOPERATIVE DIAGNOSIS: Same OPERATION: Removal of right IJ permacatheter SURGEON: LONA RAYA ANESTHESIA: Local TISSUE REMOVED OR ALTERED: None COMPLICATIONS: None ESTIMATED BLOOD LOSS: Minimal INTRAOPERATIVE FINDINGS: See below PROCEDURE: The patient was prepared for the procedure by exposing the right IJ permacatheter. Surgical timeout was conducted. The exit site was prepped with Betadine. The surrounding skin was anesthetized 1% plain lidocaine. Existing sutures Biopatch removed. This was a right IJ permacatheter with an entrance site above the clavicle and the exit site in the subclavicular region. Once the sutures were removed, the permacatheter slid out. The tip was trimmed off and sent to pathology in a specimen cup for Gram stain culture and sensitivity. A 3-0 Ethilon suture was used to oversew the exit side to reduce the risk of bleeding. Gentle compression dressing applied. Patient tolerated procedure well.
[2019-10-24] MEDS: PROPOFOL 1,000 MG/100 ML INFUS..BTL IV PRN ×2 (00:47→14:19)
[2019-10-24] MEDS: FENTANYL CITRATE INJ/PF 100 MCG/2 ML AMPUL IV PRN ×3 (00:49→20:34)
[2019-10-24] MEDS: NORMAL SALINE 1000 ML 1,000 ML IV PRN ×3 (03:30→18:39)
[2019-10-24 05:19] LABS: ARTERIAL BLOOD BASE EXCESS -4.1 mmol/L; ARTERIAL BLOOD H2CO3 1.12 mmol/L (1.05-1.35); ARTERIAL BLOOD HCO3 20.9 mmol/L (20-24); ARTERIAL BLOOD O2 SATURATION 83.2 % (94-98); ARTERIAL BLOOD PCO2 37.1 mmHg (35-45); ARTERIAL BLOOD PH 7.37 (7.35-7.45); ARTERIAL BLOOD PO2 48.4 mmHg (80-100)
[2019-10-24 05:22] LABS: ARTERIAL BLOOD FIO2 85%
[2019-10-24 05:38] LABS: ALBUMIN 1.8 g/dL (3.5-5.0); ALKALINE PHOSPHATASE 60 U/L (38-126); ANION GAP 11 (5-19); ASPARTATE AMINO TRANSFERASE 106 U/L (14-36); BILIRUBIN,DIRECT 0.6 mg/dL (0.0-0.4); BILIRUBIN,TOTAL 0.6 mg/dL (0.2-1.3); BLOOD UREA NITROGEN 46 mg/dL (7-20); CARBON DIOXIDE 23 mmol/L (22-30); CHLORIDE 98 mmol/L (98-107); GLUCOSE 147 mg/dL (75-110); POTASSIUM 3.4 mmol/L (3.6-5.0); TOTAL PROTEIN 3.6 g/dL (6.3-8.2)
[2019-10-24 05:52] LABS: CALCIUM 5.5 mg/dL (8.4-10.2)
[2019-10-24] MEDS: HEPARIN SOD (PORCINE) 5,000 UNIT/ML 1 ML VIAL SUBCUT SCH ×3 (06:50→21:13)
[2019-10-24 06:56] LABS: HEMATOCRIT 21.8 % (36.0-47.0); MEAN CORPUSCULAR HEMOGLOBIN 31.4 pg (27.0-33.4); MEAN CORPUSCULAR HGB CONC 34.6 g/dL (32.0-36.0); MEAN CORPUSCULAR VOLUME 91 fl (80-97); RED CELL DISTRIBUTION WIDTH 14.2 % (11.5-14.0); WHITE BLOOD COUNT 18.5 10^3/uL (4.0-10.5)
[2019-10-24 08:26] LABS: HEMOGLOBIN 7.5 g/dL (12.0-15.5)
[2019-10-24 08:31] LABS: PLATELET COUNT 80 10^3/uL (150-450)
[2019-10-24] MEDS: POTASSIUM CHLORIDE 20 MEQ/50 ML RTU IV SCH ×2 (08:31→10:22)
[2019-10-24] MEDS: CALCIUM GLUCONATE 1 GM/NS 50 ML RTU IV SCH ×2 (08:31→10:23)
[2019-10-24 08:33] LABS: ABSOLUTE LYMPHOCYTES# (MANUAL) 0.7 10^3/uL (0.5-4.7); ABSOLUTE MONOCYTES # (MANUAL) 1.5 10^3/uL (0.1-1.4); BAND NEUTROPHILS % (MANUAL) 1 % (3-5); BASOPHILS % (MANUAL) 0 % (0-2); EOSINOPHILS % (MANUAL) 0 % (0-6); LYMPHOCYTES % (MANUAL) 4 % (13-45); MONOCYTES % (MANUAL) 8 % (3-13); SEGMENTED NEUTROPHILS % (MAN) 87 % (42-78); TOTAL CELLS COUNTED 100
[2019-10-24 08:35] LABS: ANISOCYTOSIS SLIGHT; PLATELET COMMENT DECREASED; TARGET CELLS SLIGHT; TEAR DROP CELLS SLIGHT; TOXIC GRANULATION SLIGHT; TOXIC VACUOLATION PRESENT
--- NOTE | 2019-10-24 09:06 | RADIOLOGY REPORT (SQ) ---
EXAM DESCRIPTION: CHEST SINGLE VIEW IMAGES COMPLETED DATE/TIME: 10/24/2019 8:52 am REASON FOR STUDY: ARDS COMPARISON: 10/23/2019. EXAM PARAMETERS: NUMBER OF VIEWS: One view. TECHNIQUE: Single frontal radiographic view of the chest acquired. RADIATION DOSE: NA LIMITATIONS: None. FINDINGS: LUNGS AND PLEURA: Patchy airspace disease in both lungs with worsening aeration in the lef t lung. Possible pleural effusions. MEDIASTINUM AND HILAR STRUCTURES: No masses. Contour normal. HEART AND VASCULAR STRUCTURES: Heart upper limits of normal in size. Normal vasculature. BONES: No acute findings. HARDWARE: Stable endotracheal tube and nasogastric tube. Surgical clips in the soft tissues of the n efra. OTHER: No other significant finding. IMPRESSION: PATCHY AIRSPACE DISEASE WITH WORSENING AERATION IN THE LEFT LUNG. TECHNICAL DOCUMENTATION: JOB ID: [id number] 2010 [employer]- All Rights Reserved Reading location - IP/workstation name: [email or web address]
[2019-10-24] MEDS: CALCITRIOL 1 MCG/ML ORAL SOLN 15 ML NG SCH (10:23)
[2019-10-24] MEDS: SODIUM BICARBONATE 650 MG TABLET PO SCH ×2 (10:23→21:13)
[2019-10-24] MEDS: LINEZOLID 600 MG/300 ML RTUPB IV SCH ×2 (10:23→22:56)
[2019-10-24] MEDS: ASCORBIC ACID 500 MG TABLET NG SCH (10:23)
[2019-10-24] MEDS: PANTOPRAZOLE SODIUM 40 MG VIAL IV SCH (10:24)
[2019-10-24] MEDS: IPRATROPIUM/ALBUTEROL 0.5-2.5 MG/3 ML AMPUL NEB PRN (11:57)
--- NOTE | 2019-10-24 12:27 | PDOC CRITICAL CARE PROG REPORT ---
General Date:: 10/24/19 ICU Day:: 3 Resuscitation Status: Full Code Events in the past 12 to 24 Hours:: Still febrile, not hypoadrenal, still on pressors. The patient remains in the ICU onn the ventialtor. When she arrived a 3 days ago she was inseptic shock The patient has bilateral interstitial and alveolar opacities R>L. The patient has a tunnelled dialysis catheter placed prior to this admission. The patient has 3 positive blood culutres likely coming from her tunnellled catheter. It needs to come out. The patient has a fairly significant metabolic acidosis to sday. Her PH was 7.17 and there is an AG of about 14. The patient was administered 2 amps of bicarb at the start of her diaysis. I spoke to the surgical physician about taking out the catheter. The patient is on 11 mcg of levophed. 10/23 The patient's levophed has been weaned off. Howver, her oxygenation is very poor this AMand her color is poor. CXR shows increased Right base and LLL infiltrates. The patient is growing MRSA in her blood stream and the culprit catheter was removed. Ihave ordered an ECHO to r/o endiocarditis. i called her huisband as I am concened about this hypoxemia. I may consider an FOB as I beleieve there may RLL atelectasis. We may hvae to prone thepatient as well. Reason for ICU Addmission:: Obtunded witrh agonal breathing, hypotension and m eeting criteria for septic shock. Physical Exam Vital Signs: Temp Pulse Resp BP Pulse Ox 99.7 F 80 27 H 144/83 H 91 L 10/24/19 09:03 10/24/19 10:00 10/24/19 10:00 10/24/19 10:00 10/24/19 10:00 Intake & Output 10/23/19 10/24/19 10/25/19 06:59 06:59 06:59 Intake Total 3653 4115 103 Output Total 110 18 15 Balance 3543 4097 88 Weight 66.8 kg 71.7 kg Weight/Height Weight 71.7 kg Height 5 ft 4 in General appearance: PRESENT: mild distress Head exam: PRESENT: normocephalic Eye exam: PRESENT: conjunctiva pink Ear exam: PRESENT: normal external ear exam Mouth exam: PRESENT: moist, neck supple Neck exam: ABSENT: JVD, lymphadenopathy Respiratory exam: PRESENT: accessory muscle use Cardiovascular exam: PRESENT: systolic murmur Pulses: PRESENT: normal radial pulses GI/Abdominal exam: PRESENT: soft. ABSENT: guarding, tenderness Rectal exam: ABSENT: black stool, bloody stool Gentrourinary exam: ABSENT: ecchymosis, lesions Extremities exam: ABSENT: calf tenderness, clubbing Neurological exam: PRESENT: other - The patient has eyesopen but is not rtesponsive presently. Laboratory/Radiographs Laboratory Results: 10/24/19 06:28 10/24/19 04:37 10/23/19 10/24/19 10/24/19 12:24 04:37 04:37 WBC Cancelled RBC Cancelled Hgb Cancelled Hct Cancelled MCV Cancelled MCH Cancelled MCHC Cancelled RDW Cancelled Plt Count Cancelled Seg Neutrophils % Cancelled Carbonic Acid 1.13 1.12 HCO3/H2CO3 Ratio 20:1 18:1 ABG pH 7.40 7.37 ABG pCO2 37.6 37.1 ABG pO2 48.4 L 48.4 L ABG HCO3 22.9 20.9 ABG O2 Saturation 84.5 L 83.2 L ABG Base Excess -1.7 -4.1 FiO2 75% 85% Sodium Potassium Chloride Carbon Dioxide Anion Gap BUN Creatinine Est GFR ( Amer) Glucose Calcium Total Bilirubin AST Alkaline Phosphatase Total Protein Albumin 10/24/19 10/24/19 04:37 06:28 WBC 18.5 H RBC 2.40 L Hgb 7.5 L Hct 21.8 L MCV 91 MCH 31.4 MCHC 34.6 RDW 14.2 H Plt Count 80 L Seg Neutrophils % Not Reportable Carbonic Acid HCO3/H2CO3 Ratio ABG pH ABG pCO2 ABG pO2 ABG HCO3 ABG O2 Saturation ABG Base Excess FiO2 Sodium 132.0 L Potassium 3.4 L Chloride 98 Carbon Dioxide 23 Anion Gap 11 BUN 46 H Creatinine 2.85 H Est GFR ( Amer) 20 L Glucose 147 H Calcium 5.5 L* Total Bilirubin 0.6 AST 106 H Alkaline Phosphatase 60 Total Protein 3.6 L Albumin 1.8 L 10/21/19 15:30 Blood Blood Culture (PCR) - Final Staphylococcus Aureus 10/21/19 15:30 Blood Blood Culture - Final Mrsa (Meth Resis Staph Aureus) 10/21/19 14:15 Blood Blood Culture (PCR) - Final Staphylococcus Aureus 10/21/19 14:15 Blood Blood Culture - Final Mrsa (Meth Resis Staph Aureus) Impressions: Chest CT 10/20/19 12:41 IMPRESSION: 1. Mild lower lobe consolidation, likely atelectasis. Addition patchy bilateral areas of ground-glass attenuation which are nonspecific and may represent infectious/inflammatory process, including viral pneumonias. 2. Interlobular septal thickening suggestive of mild interstitial edema. Small pericardial effusion. Head CT 10/20/19 18:11 IMPRESSION: NORMAL BRAIN CT WITHOUT CONTRAST. EVIDENCE OF ACUTE STROKE: NO. Chest X-Ray 10/24/19 08:15 IMPRESSION: PATCHY AIRSPACE DISEASE WITH WORSENING AERATION IN THE LEFT LUNG. Assessment and Plan - Diagnosis (1) Septic shock Is this a current diagnosis for this admission?: Yes Plan: The patient has received bicarb for themetabolioc acidosis and the dialysis mnmay help as well. In the interim she is onpressors witrh Levophed at 11 mcg/min. The patient is on Zyvoxx for her MRSA bacteremia. She has had 3 positivbe separate cutlutres. 10/23 For now it appears that her shock and metabolic acodosis has resolved. (2) COPD (chronic obstructive pulmonary disease) Qualifiers: COPD type: unspecified COPD Qualified Code(s): J44.9 - Chronic obstructive pulmonary disease, unspecified Is this a current diagnosis for this admission?: Yes Plan: No wheezing, breath sounds distant. The patient is on the ventialtor. She is getting duoneb treatments ABG shows a metabolic acidosis. (3) ESRD on hemodialysis Is this a current diagnosis for this admission?: Yes Plan: The patient is getting dialyzed tiw. [id number], it appears that her tunnellled cathter will need to come out anmd be replaced by a new catheter in 24-48 hours. The patient is getting dialysis today. 10/23 This patient has a long history of CKD. This conditon has worsened in thepast few months necessitating the placement of the dialysis catheter ans start of dialysis at this time. The poatient is supposed to have her catheter replaced tomorrow and resume another dialysis sessiontomorrow. (4) Hypocalcemia Is this a current diagnosis for this admission?: Yes Plan: The patient has been getting supllemental IV calcium 10/23 Her corrected calcium is about 7.2. Has received regualr Calcium replacement. (5) Hypothyroidism Qualifiers: Hypothyroidism type: other Qualified Code(s): E03.8 - Other specified hypothyroidism Is this a current diagnosis for this admission?: Yes Plan: The patient is getting her home syntrhoid at this time. (6) Hypoxemia Is this a current diagnosis for this admission?: Yes Plan: The patient is increasingly hypoxemic over the past several hours. She is presently on 100% Fi02. There may be an element of atelectasis. to this end I would like to try bronching her when I get permission. If this is nt helful we will likely prone thepatient shortly thereafter. Plan Summary: As noted abopve her genreal condition presently appears poor. She remains fairly hypoxemic. BP is satisfactory. The patient is a fiull cosde at this time. Critical Time Critical Time (minutes): 40 Level of Care: ICU -: 1. The care of a critical patient is a dynamic process. This note is a home office representative synopsis but static in nature. The timeframe for treatments given in order is not necessarily the actual time these treatments may have been done. 2. This patient requires critical care secondary to ongoing requirements for therapy not offered or safe outside the critical care environment. Transfer to a lower level of care will result in altered life or limb morbidity and mortality. 3. Multidisciplinary rounds completed. 4. ABCDE bundle addressed.
[2019-10-24 20:26] LABS: ARTERIAL BLOOD BASE EXCESS -5.6 mmol/L; ARTERIAL BLOOD FIO2 75%; ARTERIAL BLOOD H2CO3 0.85 mmol/L (1.05-1.35); ARTERIAL BLOOD HCO3 18.2 mmol/L (20-24); ARTERIAL BLOOD PCO2 28.1 mmHg (35-45); ARTERIAL BLOOD PH 7.43 (7.35-7.45); ARTERIAL BLOOD PO2 43.8 mmHg (80-100); ARTERIAL BLOOD TOTAL CO2 19.1 mmol/L (21-25)
[2019-10-24] MEDS ORDERED: METOPROLOL TARTRATE PF/INJ 5 MG/5 ML SDV IV ONE ×2 (21:03→21:04)
[2019-10-24] MEDS ORDERED: AMIODARONE HCL 150 MG in DEXTROSE 5%-WATER 100 ML IV ONE (21:18)
[2019-10-24] MEDS ORDERED: AMIODARONE HCL INJ 150 MG/3 ML VIAL IV ONE (21:21)
[2019-10-24] MEDS ORDERED: FUROSEMIDE INJ/PF 40 MG/4 ML SDV IV ONE (22:30)
[2019-10-25] MEDS: PROPOFOL 1,000 MG/100 ML INFUS..BTL IV PRN ×2 (00:37→15:20)
[2019-10-25 04:48] LABS: HEMATOCRIT 22.4 % (36.0-47.0); MEAN CORPUSCULAR HEMOGLOBIN 31.1 pg (27.0-33.4); MEAN CORPUSCULAR HGB CONC 34.3 g/dL (32.0-36.0); MEAN CORPUSCULAR VOLUME 91 fl (80-97); RED BLOOD COUNT 2.47 10^6/uL (3.72-5.28); RED CELL DISTRIBUTION WIDTH 14.5 % (11.5-14.0); WHITE BLOOD COUNT 19.8 10^3/uL (4.0-10.5)
[2019-10-25 04:52] LABS: ARTERIAL BLOOD BASE EXCESS -5.7 mmol/L; ARTERIAL BLOOD FIO2 70%; ARTERIAL BLOOD H2CO3 0.74 mmol/L (1.05-1.35); ARTERIAL BLOOD HCO3 17.1 mmol/L (20-24); ARTERIAL BLOOD O2 SATURATION 99.1 % (94-98); ARTERIAL BLOOD PCO2 24.6 mmHg (35-45); ARTERIAL BLOOD PH 7.46 (7.35-7.45); ARTERIAL BLOOD PO2 152.6 mmHg (80-100); ARTERIAL BLOOD TOTAL CO2 17.8 mmol/L (21-25)
[2019-10-25 04:59] LABS: ALBUMIN 1.9 g/dL (3.5-5.0); ALKALINE PHOSPHATASE 75 U/L (38-126); ANION GAP 11 (5-19); ASPARTATE AMINO TRANSFERASE 86 U/L (14-36); BILIRUBIN,DIRECT 0.7 mg/dL (0.0-0.4); BILIRUBIN,TOTAL 0.7 mg/dL (0.2-1.3); BLOOD UREA NITROGEN 48 mg/dL (7-20); CARBON DIOXIDE 20 mmol/L (22-30); CHLORIDE 100 mmol/L (98-107); GLUCOSE 143 mg/dL (75-110); POTASSIUM 3.5 mmol/L (3.6-5.0); TOTAL PROTEIN 3.8 g/dL (6.3-8.2)
[2019-10-25] MEDS ORDERED: HEPARIN SOD (PORCINE) 1,000 UNIT/ML 10 ML VIAL IV PRN (05:00)
[2019-10-25] MEDS ORDERED: EPOETIN ALFA-EPBX 20,000 UNIT in SYRINGE, DISPOSABLE, 1 EACH IV PRN (05:00)
[2019-10-25 05:08] LABS: CALCIUM 5.6 mg/dL (8.4-10.2)
[2019-10-25 05:20] LABS: PLATELET COUNT 89 10^3/uL (150-450)
[2019-10-25 05:26] LABS: ABSOLUTE LYMPHOCYTES# (MANUAL) 0.8 10^3/uL (0.5-4.7); ABSOLUTE MONOCYTES # (MANUAL) 0.8 10^3/uL (0.1-1.4); BAND NEUTROPHILS % (MANUAL) 5 % (3-5); BASOPHILS % (MANUAL) 0 % (0-2); EOSINOPHILS % (MANUAL) 0 % (0-6); LYMPHOCYTES % (MANUAL) 4 % (13-45); MONOCYTES % (MANUAL) 4 % (3-13); SEGMENTED NEUTROPHILS % (MAN) 87 % (42-78); TOTAL CELLS COUNTED 100
[2019-10-25 05:29] LABS: ANISOCYTOSIS SLIGHT; TOXIC VACUOLATION PRESENT
[2019-10-25 05:32] LABS: TEAR DROP CELLS SLIGHT
[2019-10-25 05:33] LABS: HEMOGLOBIN 7.7 g/dL (12.0-15.5); PLATELET COMMENT DECREASED
[2019-10-25] MEDS: DEXTROSE 5%-WATER 250 ML with VASOPRESSIN 100 UNIT IV PRN ×2 (05:40)
[2019-10-25] MEDS: HEPARIN SOD (PORCINE) 5,000 UNIT/ML 1 ML VIAL SUBCUT SCH ×3 (06:21→21:23)
--- NOTE | 2019-10-25 08:23 | RADIOLOGY REPORT (SQ) ---
EXAM DESCRIPTION: CHEST SINGLE VIEW IMAGES COMPLETED DATE/TIME: 10/25/2019 5:53 am REASON FOR STUDY: ARDS COMPARISON: 10/24/2019 NUMBER OF VIEWS: One view. TECHNIQUE: Single frontal radiographic image of the chest acquired. LIMITATIONS: None. FINDINGS: LUNGS AND PLEURA: Stable appearance. MEDIASTINUM AND HILAR STRUCTURES: Stable heart size and mediastinal structures. HEART AND VASCULAR STRUCTURES: Stable appearance. SUPPORT DEVICES: Appropriate location without change. BONES: No acute findings. OTHER: No other significant finding. IMPRESSION: STABLE APPEARANCE OF THE CHEST. SUPPORT DEVICES UNCHANGED. TECHNICAL DOCUMENTATION: JOB ID: [id number] 2010 [employer]- All Rights Reserved Reading location - IP/workstation name: [email or web address]
[2019-10-25] MEDS: PANTOPRAZOLE SODIUM 40 MG VIAL IV SCH (09:31)
[2019-10-25] MEDS: ASCORBIC ACID 500 MG TABLET NG SCH (09:31)
[2019-10-25] MEDS: SODIUM BICARBONATE 650 MG TABLET PO SCH ×2 (09:32→21:20)
[2019-10-25] MEDS: CALCITRIOL 1 MCG/ML ORAL SOLN 15 ML NG SCH (09:32)
[2019-10-25] MEDS: LINEZOLID 600 MG/300 ML RTUPB IV SCH ×2 (09:37→21:20)
--- NOTE | 2019-10-25 10:05 | RADIOLOGY REPORT (SQ) ---
EXAM DESCRIPTION: CHEST SINGLE VIEW IMAGES COMPLETED DATE/TIME: 10/25/2019 9:51 am REASON FOR STUDY: Trialysis Catheter Placement Verification COMPARISON: Earlier the same day. NUMBER OF VIEWS: One view. TECHNIQUE: Single frontal radiographic image of the chest acquired. LIMITATIONS: None. FINDINGS: LUNGS AND PLEURA: Stable appearance. MEDIASTINUM AND HILAR STRUCTURES: Stable heart size and mediastinal structures. HEART AND VASCULAR STRUCTURES: Stable appearance. SUPPORT DEVICES: A right-sided central line has been placed. Catheter tip overlies the SVC. Other support lines and tubes are unchanged. BONES: No acute findings. OTHER: No other significant finding. IMPRESSION: Addition of a right-sided central line as described. No pneumothorax. No other interva l change. TECHNICAL DOCUMENTATION: JOB ID: [id number] 2010 [employer]- All Rights Reserved Reading location - IP/workstation name: [email or web address]
--- NOTE | 2019-10-25 10:26 | EKG REPORT ---
SEVERITY:- ABNORMAL ECG - SINUS OR ECTOPIC ATRIAL TACHYCARDIA OLD SEPTAL AR BORDERLINE PROLONGED QT INTERVAL : Confirmed by: Laura Edwards MD 25-Oct-2019 10:25:12
[2019-10-25] MEDS ORDERED: NOREPINEPHRINE BITARTRATE INJ/PF 4 MG/4 ML SDV IV ONE (10:58)
[2019-10-25] MEDS: DEXTROSE 5%-WATER 250 ML with NOREPINEPHRINE BITARTRATE 4 MG IV PRN ×2 (11:13)
[2019-10-25] MEDS: CALCIUM GLUC IN NACL, ISO-OSM 2 GM/100 ML RTUPB IV SCH ×2 (11:15→18:27)
[2019-10-25] MEDS: MIDAZOLAM HCL 50 MG/100 ML RTUINJ IV PRN (11:19)
--- NOTE | 2019-10-25 12:09 | PDOC CRITICAL CARE PROG REPORT ---
General Date:: 10/25/19 ICU Day:: 4 Ventilator Day:: 4 Resuscitation Status: Full Code Events in the past 12 to 24 Hours:: Still febrile, not hypoadrenal, still on pressors. The patient remains in the ICU onn the ventialtor. When she arrived a 3 days ago she was inseptic shock The patient has bilateral interstitial and alveolar opacities R>L. The patient has a tunnelled dialysis catheter placed prior to this admission. The patient has 3 positive blood culutres likely coming from her tunnellled catheter. It needs to come out. The patient has a fairly significant metabolic acidosis tosday. Her PH was 7.17 and there is an AG of about 14. The patient was administered 2 amps of bicarb at the start of her diaysis. I spoke to the surgical physician about taking out the catheter. The patient is on 11 mcg of levophed. 10/23 The patient's levophed has been weaned off. Howver, her oxygenation is very poor this AMand her color is poor. CXR shows increased Right base and LLL infiltrates. The patient is growing MRSA in her blood stream and the culprit catheter was removed. Ihjose ordered an ECHO to r/o endiocarditis. i called her huisband as I am concened about this hypoxemia. I may consider an FOB as I beleieve there may RLL atelectasis. We may hvae to prone the patient as well. 10/24 The patient had bad hypoxemia yesterday and was proned. We placed her back suine this AM. She is maintaining her 02 sats better than yesterday and it appears that we may not need to rpone her again. The patient is being treated for her MRSA bacteremia. The patient is on Vasopressin alone and that can be possibly be weaned off.Her triglycerides were high a few days ago so we are trying towen off propofol and rather use Versed. The aptient is going to start nepro tube feeds.Platelets are running a little low at 80. Reason for ICU Addmission:: Obtunded witrh agonal breathing, hypotension and meeting criteria for septic shock. Physical Exam Vital Signs: Temp Pulse Resp BP Pulse Ox 100.2 F 96 10 L 95/61 L 100 10/25/19 08:54 10/25/19 10:00 10/25/19 10:00 10/25/19 10:00 10/25/19 10:00 Intake & Output 10/24/19 10/25/19 10/26/19 06:59 06:59 06:59 Intake Total 4115 3412 137 Output Total 18 1705 Balance 4097 1707 137 Weight 71.7 kg 74.6 kg Weight/Height Weight 74.6 kg Height 5 ft 4 in General appearance: PRESENT: no acute distress Head exam: PRESENT: atraumatic, normocephalic Eye exam: PRESENT: nystagmus - Patient having horizontal nystagmus to the right., PERRLA Ear exam: PRESENT: normal external ear exam Neck exam: PRESENT: lymphadenopathy. ABSENT: JVD, meningismus, thyromegaly Respiratory exam: ABSENT: accessory muscle use Cardiovascular exam: PRESENT: RRR Pulses: PRESENT: normal radial pulses GI/Abdominal exam: PRESENT: soft. ABSENT: tenderness Rectal exam: ABSENT: deferred Gentrourinary exam: ABSENT: ecchymosis Extremities exam: ABSENT: calf tenderness, clubbing Neurological exam: PRESENT: other - Patiet is heavily sedated on the ventilator.. ABSENT: alert Laboratory/Radiographs Laboratory Results: 10/25/19 04:20 10/25/19 04:20 10/24/19 10/25/19 10/25/19 20:00 04:20 04:20 WBC 19.8 H RBC 2.47 L Hgb 7.7 L Hct 22.4 L MCV 91 MCH 31.1 MCHC 34.3 RDW 14.5 H Plt Count 89 L Seg Neutrophils % Not Reportable Carbonic Acid 0.85 L 0.74 L HCO3/H2CO3 Ratio 21:1 23:1 ABG pH 7.43 7.46 H ABG pCO2 28.1 L 24.6 L ABG pO2 43.8 L 152.6 H ABG HCO3 18.2 L 17.1 L ABG O2 Saturation 82.0 L 99.1 H ABG Base Excess -5.6 -5.7 FiO2 75% 70% Sodium Potassium Chloride Carbon Dioxide Anion Gap BUN Creatinine Est GFR ( Amer) Glucose Calcium Total Bilirubin AST Alkaline Phosphatase Total Protein Albumin 10/25/19 04:20 WBC RBC Hgb Hct MCV MCH MCHC RDW Plt Count Seg Neutrophils % Carbonic Acid HCO3/H2CO3 Ratio ABG pH ABG pCO2 ABG pO2 ABG HCO3 ABG O2 Saturation ABG Base Excess FiO2 Sodium 130.9 L Potassium 3.5 L Chloride 100 Carbon Dioxide 20 L Anion Gap 11 BUN 48 H Creatinine 3.34 H Est GFR ( Amer) 17 L Glucose 143 H Calcium 5.6 L* Total Bilirubin 0.7 AST 86 H Alkaline Phosphatase 75 Total Protein 3.8 L Albumin 1.9 L 10/23/19 12:56 Catheter Tip - Not Specified Catheter Tip Culture - Final Mrsa (Meth Resis Staph Aureus) 10/21/19 15:30 Blood Blood Culture (PCR) - Final Staphylococcus Aureus 10/21/19 15:30 Blood Blood Culture - Final Mrsa (Meth Resis Staph Aureus) 10/21/19 14:15 Blood Blood Culture (PCR) - Final Staphylococcus Aureus 10/21/19 14:15 Blood Blood Culture - Final Mrsa (Meth Resis Staph Aureus) Impressions: Chest CT 10/20/19 12:41 IMPRESSION: 1. Mild lower lobe consolidation, likely atelectasis. Addition patchy bilateral areas of ground-glass attenuation which are nonspecific and may represent infectious/inflammatory process, including viral pneumonias. 2. Interlobular septal thickening suggestive of mild interstitial edema. Small pericardial effusion. Head CT 10/20/19 18:11 IMPRESSION: NORMAL BRAIN CT WITHOUT CONTRAST. EVIDENCE OF ACUTE STROKE: NO. Chest X-Ray 10/25/19 08:15 IMPRESSION: STABLE APPEARANCE OF THE CHEST. SUPPORT DEVICES UNCHANGED. Assessment and Plan - Diagnosis (1) Septic shock Is this a current diagnosis for this admission?: Yes Plan: The patient has received bicarb for the metabolioc acidosis and the dialysis may help as well. In the interim she is on pressors witrh Levophed at 11 mcg/min. The patient is on Zyvoxx for her MRSA bacteremia. She has had 3 positivbe separate cutlutres. 10/23 For now it appears that her shock and metabolic acidosis has resolved. 10/24 The patient is being treated for her MRSA bacteremia with Zyvoxx. Her Covid test of 10/19 was negative. At present she is on a small dose of pressor at levo 2mcg/min. (2) COPD (chronic obstructive pulmonary disease) Qualifiers: COPD type: unspecified COPD Qualified Code(s): J44.9 - Chronic obstructive pulmonary disease, unspecified Is this a current diagnosis for this admission?: Yes Plan: No wheezing, breath sounds distant. The patient is on the ventialtor. She is getting duoneb treatments ABG shows a metabolic acidosis. 10/24 The skyler laird has a long smoking history and I suspect she has fairly significant COPD. When I preformed the bronch yesterday , I did not see gross mucous plugging. I did send off bronchial washings for cuture. (3) ESRD on hemodialysis Is this a current diagnosis for this admission?: Yes Plan: The patient is getting dialyzed tiw. [id number], it appears that her tunnellled cathter will need to come out anmd be replaced by a new catheter in 24-48 hours. The patient is getting dialysis today. 10/23 This patient has a long history of CKD. This conditon has worsened in thepast few months necessitating the placement of the dialysis catheter ans start of dialysis at this time. The patient is supposed to have her catheter replaced tomorrow and resume another dialysis session tomorrow. 10/24 I replaced the dialysis catheter this AM in the right IJ. The patient is several liters ahead (4) Hypocalcemia Is this a current diagnosis for this admission?: Yes Plan: The patient has been getting supllemental IV calcium 10/23 Her corrected calcium is about 7.2. Has received regualr Calcium replacement. 10/24 I have discussed her issues with Dr. pope of Nephrology. We will increase her supplemental calcium nthe next few days. (5) Hypothyroidism Qualifiers: Hypothyroidism type: other Qualified Code(s): E03.8 - Other specified hypothyroidism Is this a current diagnosis for this admission?: Yes (6) Hypoxemia Is this a current diagnosis for this admission?: Yes Critical Time Critical Time (minutes): 50 Level of Care: ICU -: 1. The care of a critical patient is a dynamic process. This note is a volunteer patient representative synopsis but static in nature. The timeframe for treatments given in order is not necessarily the actual time these treatments may have been done. 2. This patient requires critical care secondary to ongoing requirements for therapy not offered or safe outside the critical care environment. Transfer to a lower level of care will result in altered life or limb morbidity and mortality. 3. Multidisciplinary rounds completed. 4. ABCDE bundle addressed.
--- NOTE | 2019-10-25 12:15 | Operative Report ---
Bedside Procedure - History of Present Illness Indication for Procedure: Atelectasis, severe hypoxemia Date: 10/21/19 Provider: JAVY STALLWORTH - Additional Procedures bronchoscopy Time performed: 11:00 Notes: I performed a bronchoscopy on 10/23 after getting consent from her . The patient had bad hypoxemia and I suspected bad atelectasis. The patient was sedated onpropofol. a time out was called at the initiatiation of the procedure. The endobronchial anatomy was normal. Bronchial washings sent for fungal , legionella and routine culture. the patie nt doid drop her 02 sats fairly dramitically given the small ET tube and her preexisiting resp. compromise. Blood loss <10cc. no other complications noted.
--- NOTE | 2019-10-25 12:16 | Operative Report ---
Bedside Procedure - History of Present Illness Indication for Procedure: Dialysis Date: 10/21/19 Provider: JAVY STALLWORTH - Central Line Right Internal jugular Consent obtained: Yes Central line pre-insertion: Sterile PPE donned, Chloraprep applied Central line size (Fr.): 7 Central line lumen type: Triple Anesthetic type: 2% Lidocaine mL's of anesthesia: 5 Ultrasound guided: Yes Line secured with sutures: Yes Central line post-insertion: Blood return from lumens, Position confirmed w/ CXR Number of attempts: 1 Complications: No
[2019-10-25] MEDS ORDERED: ALTEPLASE INJ 2 MG VIAL (CATH CLEARANCE) IV ONE (12:49)
--- NOTE | 2019-10-25 14:04 | PDOC PROGRESS REPORT ---
Subjective Progress Note for:: 10/25/19 Reason For Visit: Patient seen in the ICU this morning. Patient admitted with line septic shock and IJ catheter was removed yesterday. Currently growing MRSA in the blood and on appropriate antibiotics. Currently undergoing dialysis which is being supervised. However blood pressure is tenuous and unlikely will be able to remove a whole lot of fluid off. Currently on pressors. Labs and medications were reviewed. Dialysis orders were reviewed with the treating dialysis nurse. Physical Exam Vital Signs: Temp Pulse Resp BP Pulse Ox 98.6 F 92 21 H 138/70 H 100 10/25/19 11:57 10/25/19 11:57 10/25/19 11:57 10/25/19 11:57 10/25/19 11:57 Intake & Output 10/24/19 10/25/19 10/26/19 06:59 06:59 06:59 Intake Total 4115 3412 437 Output Total 18 1705 Balance 4097 1707 437 Weight 71.7 kg 74.6 kg Exam: Is intubated and sedated. Respiratory exam: PRESENT: clear to auscultation nuvia. ABSENT: crackles Cardiovascular exam: PRESENT: +S1, +S2 GI/Abdominal exam: PRESENT: normal bowel sounds, soft. ABSENT: organomegaly, tenderness Extremities exam: PRESENT: pedal edema Results Laboratory Results: 10/25/19 04:20 10/25/19 04:20 10/24/19 10/25/19 10/25/19 20:00 04:20 04:20 WBC 19.8 H RBC 2.47 L Hgb 7.7 L Hct 22.4 L MCV 91 MCH 31.1 MCHC 34.3 RDW 14.5 H Plt Count 89 L Seg Neutrophils % Not Reportable Carbonic Acid 0.85 L 0.74 L HCO3/H2CO3 Ratio 21:1 23:1 ABG pH 7.43 7.46 H ABG pCO2 28.1 L 24.6 L ABG pO2 43.8 L 152.6 H ABG HCO3 18.2 L 17.1 L ABG O2 Saturation 82.0 L 99.1 H ABG Base Excess -5.6 -5.7 FiO2 75% 70% Sodium Potassium Chloride Carbon Dioxide Anion Gap BUN Creatinine Est GFR ( Amer) Glucose Calcium Total Bilirubin AST Alkaline Phosphatase Total Protein Albumin 10/25/19 04:20 WBC RBC Hgb Hct MCV MCH MCHC RDW Plt Count Seg Neutrophils % Carbonic Acid HCO3/H2CO3 Ratio ABG pH ABG pCO2 ABG pO2 ABG HCO3 ABG O2 Saturation ABG Base Excess FiO2 Sodium 130.9 L Potassium 3.5 L Chloride 100 Carbon Dioxide 20 L Anion Gap 11 BUN 48 H Creatinine 3.34 H Est GFR ( Amer) 17 L Glucose 143 H Calcium 5.6 L* Total Bilirubin 0.7 AST 86 H Alkaline Phosphatase 75 Total Protein 3.8 L Albumin 1.9 L 10/23/19 12:56 Catheter Tip - Not Specified Catheter Tip Culture - Final Mrsa (Meth Resis Staph Aureus) 10/21/19 15:30 Blood Blood Culture (PCR) - Final Staphylococcus Aureus 10/21/19 15:30 Blood Blood Culture - Final Mrsa (Meth Resis Staph Aureus) 10/21/19 14:15 Blood Blood Culture (PCR) - Final Staphylococcus Aureus 10/21/19 14:15 Blood Blood Culture - Final Mrsa (Meth Resis Staph Aureus) Impressions: Chest CT 10/20/19 12:41 IMPRESSION: 1. Mild lower lobe consolidation, likely atelectasis. Addition patchy bilateral areas of ground-glass attenuation which are nonspecific and may represent infectious/inflammatory process, including viral pneumonias. 2. Interlobular septal thickening suggestive of mild interstitial edema. Small pericardial effusion. Head CT 10/20/19 18:11 IMPRESSION: NORMAL BRAIN CT WITHOUT CONTRAST. EVIDENCE OF ACUTE STROKE: NO. Chest X-Ray 10/25/19 08:15 IMPRESSION: STABLE APPEARANCE OF THE CHEST. SUPPORT DEVICES UNCHANGED. Assessment & Plan - Diagnosis (1) ESRD on hemodialysis Is this a current diagnosis for this admission?: Yes Plan: Patient currently on dialysis. New IJ catheter. Malfunctioning. Lines have been reversed. Blood pressure tenuous. Plan to remove as much of fluid as allowed which I think is going to be less than 2 L. Labs and medications were reviewed. Dialysis orders were reviewed with the treating dialysis nurse. (2) Septic shock Is this a current diagnosis for this admission?: Yes Plan: Currently on pressors and antibiotics. Patient critical. Monitor. (3) Type 2 diabetes mellitus Qualifiers: Diabetes mellitus chcf insulin use: unspecified machine long goods helper insulin use status Diabetes mellitus complication status: with kidney complications Diabetes mellitus complication detail: with nephropathy Qualified Code(s): E11.21 - Type 2 diabetes mellitus with diabetic nephropathy Plan: Being managed by senior credit analyst. (4) CVA (cerebral vascular accident) Qualifiers: CVA mechanism: unspecified Qualified Code(s): I63.9 - Cerebral infarction, unspecified (5) Hyponatremia Plan: Lately stable. Monitor. (6) Hypothyroidism Qualifiers: Hypothyroidism type: other Qualified Code(s): E03.8 - Other specified hypothyroidism Is this a current diagnosis for this admission?: Yes Plan: On replacements. (7) Hypocalcemia Is this a current diagnosis for this admission?: Yes Plan: Recommend [id number] IV calcium gluconate. Discussed with senior credit analyst. (8) Metabolic acidosis Plan: Responding to dialysis. Monitor. (9) Bipolar disorder Qualifiers: Active/Remission status: currently active Plan: Status quo.
[2019-10-25] MEDS: NORMAL SALINE 1000 ML 1,000 ML IV PRN ×2 (15:21→23:52)
[2019-10-25] MEDS ORDERED: DILTIAZEM HCL INJ 25 MG/5 ML VIAL ONE (20:07)
[2019-10-25] MEDS ORDERED: DILTIAZEM HCL INJ 25 MG/5 ML VIAL IV ONE (21:00)
--- NOTE | 2019-10-26 00:01 | XCELERA REPORT ---
[address] [address] Transthoracic Echocardiogram Report Name: CRISTIANE LOVE Age: 64 yrs Gender: Female : 1955 Patient Status: Inpatient Patient Location: ICU^605^A Study Date: 10/25/2019 11:19 AM Height: 64 in Weight: 158 lb BSA: 1.8 m2 Procedure: A two-dimensional transthoracic echocardiogram with color flow and Doppler was performed. The study was technically difficult with many images being suboptimal in quality. Reason For Study: Endocarditis History: Endocarditis. Ordering Physician: JAVY STALLWORTH Performed By: Chetna Ash Interpretation Summary No defenite evidence of endocaditis.But not a good study, hence recommend JESSICA if clinical suspicion is high. There is normal left ventricular wall thickness. LV EF is 65% Left ventricular systolic function is normal. Doppler measurements suggest normal left ventricular diastolic function The left ventricular wall motion is normal. Cannot assess ASD,VSD,or PFO. The right ventricle is not well visualized secondary to technical limitations Right atrium not well visualized secondary to technical limitations The left atrial size is normal. There is no evidence of mitral valve prolapse. There is no vegetation seen on the mitral valve. There is a trace amount of mitral regurgitation There is no aortic valvular vegetation. There is no aortic valve stenosis No aortic regurgitation is present. There is no tricuspid stenosis. There is a trace to mild amount of tricuspid regurgitation There is mild pulmonary hypertension by echo RVSP is 40 to 45 mm of HG , with RA mean of 5 to 10. There is no pulmonic valvular stenosis. There is no pulmonic valvular regurgitation. The aortic root is not well visualized but is probably normal size. The inferior vena cava appeared normal and decreased > 50% with respiration (RAP 5-10 mmHg) There is no pericardial effusion. No defenite evidence of endocaditis.But not a good study, hence recommend JESSICA if clinical suspicion is high. MMode/2D Measurements & Calculations RVDd: 2.8 cm LVIDd: 4.0 cm FS: 36.8 % Ao root diam: 2.7 cm IVSd: 0.92 cm LVIDs: 2.5 cm EDV(Teich): 69.0 ml Ao root area: 5.9 cm2 LVPWd: 0.89 cm ESV(Teich): 22.6 ml LA dimension: 3.5 cm EF(Teich): 67.3 % Doppler Measurements & Calculations MV E max carla: MV P1/2t max carla: Ao V2 max: LV V1 max P.9 cm/sec 75.3 cm/sec 140.7 cm/sec 4.1 mmHg MV A max carla: MV P1/2t: 75.8 msec Ao max P.9 mmHg LV V1 max: 71.0 cm/sec MVA(P1/2t): 2.9 cm2 100.9 cm/sec MV E/A: 1.1 MV dec slope: 291.0 cm/sec2 MV dec time: 0.24 sec PA V2 max: TR max carla: MV P1/2t-pr_phl: 94.3 cm/sec 296.2 cm/sec 75.8 msec PA max PG: TR max P.1 mmHg 3.6 mmHg Left Ventricle The left ventricle is normal in size. There is normal left ventricular wall thickness. LV EF is 65%. Left ventricular systolic function is normal. Doppler measurements suggest normal left ventricular diastolic function. The left ventricular wall motion is normal. There is no thrombus. Cannot assess ASD,VSD,or PFO. Right Ventricle The right ventricle is not well visualized secondary to technical limitations. Atria Right atrium not well visualized secondary to technical limitations. The left atrial size is normal. Mitral Valve There is no evidence of mitral valve prolapse. There is no vegetation seen on the mitral valve. There is no mitral valve stenosis. There is a trace amount of mitral regurgitation. Aortic Valve There is no aortic valvular vegetation. There is no aortic valve stenosis. No aortic regurgitation is present. Tricuspid Valve There is no tricuspid stenosis. There is a trace to mild amount of tricuspid regurgitation. There is mild pulmonary hypertension by echo. RVSP is 40 to 45 mm of HG , with RA mean of 5 to 10. Pulmonic Valve There is no pulmonic valvular stenosis. There is no pulmonic valvular regurgitation. Great Vessels The aortic root is not well visualized but is probably normal size. The inferior vena cava appeared normal and decreased > 50% with respiration (RAP 5-10 mmHg). Effusions There is no pericardial effusion. : JAVY STALLWORTH, Laura
[2019-10-26] MEDS: CALCIUM GLUC IN NACL, ISO-OSM 2 GM/100 ML RTUPB IV SCH ×3 (01:25→18:02)
[2019-10-26] MEDS: MIDAZOLAM HCL 50 MG/100 ML RTUINJ IV PRN ×2 (02:55→22:17)
[2019-10-26 03:47] LABS: ARTERIAL BLOOD BASE EXCESS -3.6 mmol/L; ARTERIAL BLOOD HCO3 20.1 mmol/L (20-24); ARTERIAL BLOOD O2 SATURATION 94.1 % (94-98); ARTERIAL BLOOD PCO2 29.9 mmHg (35-45); ARTERIAL BLOOD PH 7.45 (7.35-7.45); ARTERIAL BLOOD PO2 66.1 mmHg (80-100)
[2019-10-26 03:48] LABS: ARTERIAL BLOOD FIO2 40%
[2019-10-26 03:51] LABS: MEAN CORPUSCULAR HEMOGLOBIN 30.8 pg (27.0-33.4); MEAN CORPUSCULAR VOLUME 91 fl (80-97); RED BLOOD COUNT 2.14 10^6/uL (3.72-5.28); WHITE BLOOD COUNT 17.4 10^3/uL (4.0-10.5)
[2019-10-26 04:02] LABS: ALBUMIN 1.7 g/dL (3.5-5.0); ALKALINE PHOSPHATASE 70 U/L (38-126); ANION GAP 8 (5-19); ASPARTATE AMINO TRANSFERASE 69 U/L (14-36); BILIRUBIN,DIRECT 0.8 mg/dL (0.0-0.4); BILIRUBIN,TOTAL 0.9 mg/dL (0.2-1.3); BLOOD UREA NITROGEN 43 mg/dL (7-20); CARBON DIOXIDE 21 mmol/L (22-30); CHLORIDE 101 mmol/L (98-107); GLUCOSE 129 mg/dL (75-110); POTASSIUM 3.4 mmol/L (3.6-5.0); TOTAL PROTEIN 3.6 g/dL (6.3-8.2)
[2019-10-26 04:10] LABS: TRIGLYCERIDES 804 mg/dL (<150)
[2019-10-26 04:12] LABS: CALCIUM 6.8 mg/dL (8.4-10.2)
[2019-10-26 04:53] LABS: HEMATOCRIT 19.4 % (36.0-47.0)
[2019-10-26 04:56] LABS: ABSOLUTE MONOCYTES # (MANUAL) 0.3 10^3/uL (0.1-1.4); BAND NEUTROPHILS % (MANUAL) 3 % (3-5); BASOPHILS % (MANUAL) 0 % (0-2); EOSINOPHILS % (MANUAL) 0 % (0-6); LYMPHOCYTES % (MANUAL) 6 % (13-45); MONOCYTES % (MANUAL) 2 % (3-13); SEGMENTED NEUTROPHILS % (MAN) 89 % (42-78); TOTAL CELLS COUNTED 100
[2019-10-26 04:59] LABS: ANISOCYTOSIS SLIGHT; HEMOGLOBIN 6.6 g/dL (12.0-15.5); PLATELET COMMENT DECREASED; PLATELET COUNT 62 10^3/uL (150-450); SCHISTOCYTES SLIGHT; TEAR DROP CELLS SLIGHT; TOXIC GRANULATION 1+
[2019-10-26] MEDS: HEPARIN SOD (PORCINE) 5,000 UNIT/ML 1 ML VIAL SUBCUT SCH (05:02)
[2019-10-26] MEDS ORDERED: NORMAL SALINE 250 ML IV PRN ×2 (05:30)
[2019-10-26] MEDS: NORMAL SALINE 1000 ML 1,000 ML IV PRN ×2 (06:12→15:01)
[2019-10-26] MEDS: PROPOFOL 1,000 MG/100 ML INFUS..BTL IV PRN (06:18)
--- NOTE | 2019-10-26 08:41 | RADIOLOGY REPORT (SQ) ---
EXAM DESCRIPTION: CHEST SINGLE VIEW IMAGES COMPLETED DATE/TIME: 10/26/2019 6:32 am REASON FOR STUDY: ARDS COMPARISON: Previous day NUMBER OF VIEWS: One view. TECHNIQUE: Single frontal radiographic image of the chest acquired. LIMITATIONS: None. FINDINGS: LUNGS AND PLEURA: Stable appearance. No pneumothorax. MEDIASTINUM AND HEART: Stable heart size and mediastinal structures. SUPPORT DEVICES: Appropriate location without change. BONY STRUCTURES: No acute findings. HARDWARE: None. OTHER: No other significant finding. IMPRESSION: STABLE APPEARANCE OF THE CHEST. SUPPORT DEVICES UNCHANGED. Reading location - IP/workstation name: [email or web address]
[2019-10-26 08:49] LABS: PHOSPHORUS 2.9 mg/dL (2.5-4.5)
--- NOTE | 2019-10-26 11:16 | PDOC CRITICAL CARE PROG REPORT ---
General Date:: 10/26/19 ICU Day:: 5 Ventilator Day:: 5 Hospital Day:: 5 Resuscitation Status: Full Code Events in the past 12 to 24 Hours:: Still febrile, not hypoadrenal, still on pressors. The patient remains in the ICU onn the ventialtor. When she arrived a 3 days ago she was inseptic shock The patient has bilateral interstitial and alveolar opacities R>L. The patient has a tunnelled dialysis catheter placed prior to this admission. The patient has 3 positive blood culutres likely coming from her tunnellled cath eter. It needs to come out. The patient has a fairly significant metabolic acidosis tosday. Her PH was 7.17 and there is an AG of about 14. The patient was administered 2 amps of bicarb at the start of her diaysis. I spoke to the surgical physician about taking out the catheter. The patient is on 11 mcg of levophed. 10/23 The patient's levophed has been weaned off. Howver, her oxygenation is very poor this AMand her color is poor. CXR shows increased Right base and LLL infiltrates. The patient is growing MRSA in her blood stream and the culprit catheter was removed. Ihjose ordered an ECHO to r/o endocarditis. i called her huisband as I am concened about this hypoxemia. I may consider an FOB as I beleieve there may RLL atelectasis. We may hvae to prone the patient as well. 10/24 The patient had bad hypoxemia yesterday and was proned. We placed her back suine this AM. She is maintaining her 02 sats better than yesterday and it appears that we may not need to rpone her again. The patient is being treated for her MRSA bacteremia. The patient is on Vasopressin alone and that can be possibly be weaned off.Her triglycerides were high a few days ago so we are trying to wean off propofol and rather use Versed. The aptient is going to start nepro tube feeds.Platelets are running a little low at 80. 10/25 The patient remains on the ventialtor well sedated. I hope to ewean off sedation to be better able to assess her mental status today. She is being treated for her MRSA bacteremia The patient gre wout Staph in her Bronchail washings as well. We are repating suveillance blood culture to ensure thatthe bactermia has cleared. The patient remains on a small dose pof Vasopressin for her BP support. Covid x 2 negative ( last was bronchail washings). The patient got dialyzed yesterday.There were some issues perhaps relating to the catheter position and possibly clots but the function improved post Ativase. Reason for ICU Addmission:: Obtunded witrh agonal breathing, hypotension and meeting criteria for septic shock. Physical Exam Vital Signs: Temp Pulse Resp BP Pulse Ox 99.1 F 94 10 L 139/65 H 100 10/26/19 09:51 10/26/19 09:51 10/26/19 10:20 10/26/19 10:20 10/26/19 10:05 Intake & Output 10/25/19 10/26/19 10/27/19 06:59 06:59 06:59 Intake Total 3662 3232 0 Output Total 1705 1012 0 Balance 1956 2220 0 Weight 74.6 kg 81 kg Weight/Height Weight 81 kg Height 5 ft 4 in General appearance: PRESENT: no acute distress Head exam: PRESENT: atraumatic, normocephalic Eye exam: PRESENT: conjunctival injection Ear exam: PRESENT: normal external ear exam Mouth exam: PRESENT: dry mucosa, neck supple Neck exam: ABSENT: JVD, tenderness Respiratory exam: PRESENT: clear to auscultation nuvia. ABSENT: chest wall tenderness Cardiovascular exam: PRESENT: RRR Pulses: PRESENT: normal carotid pulses, normal radial pulses GI/Abdominal exam: PRESENT: soft. ABSENT: guarding, rebound, tenderness Rectal exam: ABSENT: black stool Gentrourinary exam: ABSENT: lesions Extremities exam: ABSENT: calf tenderness, clubbing Neurological exam: PRESENT: other - The patiemt remqains heavily sedated on the ventilator. Laboratory/Radiographs Laboratory Results: 10/26/19 03:39 10/26/19 03:39 10/26/19 10/26/19 10/26/19 03:39 03:39 03:39 WBC 17.4 H RBC 2.14 L Hgb 6.6 L Hct 19.4 L MCV 91 MCH 30.8 MCHC 34.0 RDW 14.0 Plt Count 62 L Seg Neutrophils % Not Reportable Carbonic Acid 0.90 L HCO3/H2CO3 Ratio 22:1 ABG pH 7.45 ABG pCO2 29.9 L ABG pO2 66.1 L ABG HCO3 20.1 ABG O2 Saturation 94.1 ABG Base Excess -3.6 FiO2 40% Sodium 130.1 L Potassium 3.4 L Chloride 101 Carbon Dioxide 21 L Anion Gap 8 BUN 43 H Creatinine 2.52 H Est GFR ( Amer) 23 L Glucose 129 H Calcium 6.8 L* Phosphorus Magnesium Total Bilirubin 0.9 AST 69 H Alkaline Phosphatase 70 Total Protein 3.6 L Albumin 1.7 L Triglycerides 804 H Blood Type Antibody Screen 10/26/19 10/26/19 03:39 06:07 WBC RBC Hgb Hct MCV MCH MCHC RDW Plt Count Seg Neutrophils % Carbonic Acid HCO3/H2CO3 Ratio ABG pH ABG pCO2 ABG pO2 ABG HCO3 ABG O2 Saturation ABG Base Excess FiO2 Sodium Potassium Chloride Carbon Dioxide Anion Gap BUN Creatinine Est GFR ( Amer) Glucose Calcium Phosphorus 2.9 Magnesium 1.7 Total Bilirubin AST Alkaline Phosphatase Total Protein Albumin Triglycerides Blood Type O POSITIVE Antibody Screen NEGATIVE 10/23/19 12:56 Catheter Tip - Not Specified Catheter Tip Culture - Final Mrsa (Meth Resis Staph Aureus) Impressions: Chest CT 10/20/19 12:41 IMPRESSION: 1. Mild lower lobe consolidation, likely atelectasis. Addition patchy bilateral areas of ground-glass attenuation which are nonspecific and may represent infectious/inflammatory process, including viral pneumonias. 2. Interlobular septal thickening suggestive of mild interstitial edema. Small pericardial effusion. Head CT 10/20/19 18:11 IMPRESSION: NORMAL BRAIN CT WITHOUT CONTRAST. EVIDENCE OF ACUTE STROKE: NO. Chest X-Ray 10/26/19 08:15 IMPRESSION: STABLE APPEARANCE OF THE CHEST. SUPPORT DEVICES UNCHANGED. Assessment and Plan - Diagnosis (1) Septic shock Is this a current diagnosis for this admission?: Yes Plan: The patient has received bicarb for the metabolioc acidosis and the dialysis may help as well. In the interim she is on pressors witrh Levophed at 11 mcg/min. The patient is on Zyvoxx for her MRSA bacteremia. She has had 3 positivbe separate cutlutres. 10/23 For now it appears that her shock and metabolic acidosis has resolved. 10/24 The patient is being treated for her MRSA bacteremia with Zyvoxx. Her Covid test of 10/19 was negative. At present she is on a small dose of pressor at levo 2mcg/min. (2) COPD (chronic obstructive pulmonary disease) Qualifiers: COPD type: unspecified COPD Qualified Code(s): J44.9 - Chronic obstructive pulmonary disease, unspecified Is this a current diagnosis for this admission?: Yes (3) ESRD on hemodialysis Is this a current diagnosis for this admission?: Yes (4) Hypocalcemia Is this a current diagnosis for this admission?: Yes (5) Hypothyroidism Qualifiers: Hypothyroidism type: other Qualified Code(s): E03.8 - Other specified hypothyroidism Is this a current diagnosis for this admission?: Yes (6) Hypoxemia Is this a current diagnosis for this admission?: Yes Plan: The patient is increasingly hypoxemic over the past several hours. She is presently on 100% Fi02. There may be an element of atelectasis. to this end I would like to try bronching her when I get permission. If this is nt helful we will likely prone thepatient shortly thereafter. 10/25 much improved with decreased A-a gradient Critical Time Critical Time (minutes): 35 Level of Care: ICU -: 1. The care of a critical patient is a dynamic process. This note is a route sales representative synopsis but static in nature. The timeframe for treatments given in order is not necessarily the actual time these treatments may have been done. 2. This patient requires critical care secondary to ongoing requirements for therapy not offered or safe outside the critical care environment. Transfer to a lower level of care will result in altered life or limb morbidity and mortality. 3. Multidisciplinary rounds completed. 4. ABCDE bundle addressed.
[2019-10-26] MEDS: SODIUM BICARBONATE 650 MG TABLET PO SCH ×2 (11:39→21:58)
[2019-10-26] MEDS: POTASSI CL 20 MEQ/50 ML RIDER 20 MEQ/50 ML RTUPB IV SCH ×2 (11:39→15:00)
[2019-10-26] MEDS: ASCORBIC ACID 500 MG TABLET NG SCH (11:39)
[2019-10-26] MEDS: PANTOPRAZOLE SODIUM 40 MG VIAL IV SCH (11:39)
[2019-10-26] MEDS: LINEZOLID 600 MG/300 ML RTUPB IV SCH ×2 (11:40→21:58)
[2019-10-26] MEDS: CALCITRIOL 1 MCG/ML ORAL SOLN 15 ML NG SCH (11:40)
[2019-10-26] MEDS ORDERED: POTASSI CL 20 MEQ/50 ML RIDER 20 MEQ/50 ML RTUPB IV SCH (14:15)
[2019-10-26] MEDS: DEXTROSE 5%-WATER 250 ML with VASOPRESSIN 100 UNIT IV PRN ×2 (18:02)
[2019-10-26] MEDS: PHARMACY COMMUNICATION ORDER MC SCH (18:03)
[2019-10-26] MEDS: INSULIN REG, HUMAN 100 UNIT/ML 3 ML VIAL (PYX) SUBCUT SCH ×2 (18:06→23:21)
[2019-10-26 20:28] LABS: HEMATOCRIT 30.2 % (36.0-47.0); MEAN CORPUSCULAR HEMOGLOBIN 30.7 pg (27.0-33.4); MEAN CORPUSCULAR VOLUME 88 fl (80-97); RED BLOOD COUNT 3.44 10^6/uL (3.72-5.28); RED CELL DISTRIBUTION WIDTH 14.1 % (11.5-14.0); WHITE BLOOD COUNT 17.3 10^3/uL (4.0-10.5)
[2019-10-26 20:42] LABS: ANION GAP 8 (5-19); BLOOD UREA NITROGEN 49 mg/dL (7-20); CARBON DIOXIDE 21 mmol/L (22-30); CHLORIDE 102 mmol/L (98-107); GLUCOSE 109 mg/dL (75-110); POTASSIUM 3.7 mmol/L (3.6-5.0)
[2019-10-26 20:46] LABS: HEMOGLOBIN 10.6 g/dL (12.0-15.5)
[2019-10-26 20:47] LABS: PLATELET COUNT 56 10^3/uL (150-450)
[2019-10-27] MEDS: CALCIUM GLUC IN NACL, ISO-OSM 2 GM/100 ML RTUPB IV SCH (02:16)
[2019-10-27] MEDS: NORMAL SALINE 1000 ML 1,000 ML IV PRN ×2 (04:48→18:41)
[2019-10-27] MEDS ORDERED: HEPARIN SOD (PORCINE) 1,000 UNIT/ML 10 ML VIAL IV PRN (05:00)
[2019-10-27 05:33] LABS: HEMATOCRIT 31.5 % (36.0-47.0); HEMOGLOBIN 10.8 g/dL (12.0-15.5); MEAN CORPUSCULAR HEMOGLOBIN 30.5 pg (27.0-33.4); MEAN CORPUSCULAR HGB CONC 34.4 g/dL (32.0-36.0); MEAN CORPUSCULAR VOLUME 89 fl (80-97); RED BLOOD COUNT 3.55 10^6/uL (3.72-5.28); RED CELL DISTRIBUTION WIDTH 14.8 % (11.5-14.0); WHITE BLOOD COUNT 18.5 10^3/uL (4.0-10.5)
[2019-10-27 05:48] LABS: ALBUMIN 1.8 g/dL (3.5-5.0); ALKALINE PHOSPHATASE 85 U/L (38-126); ANION GAP 8 (5-19); ASPARTATE AMINO TRANSFERASE 83 U/L (14-36); BILIRUBIN,DIRECT 1.1 mg/dL (0.0-0.4); BILIRUBIN,TOTAL 1.1 mg/dL (0.2-1.3); BLOOD UREA NITROGEN 53 mg/dL (7-20); CALCIUM 7.1 mg/dL (8.4-10.2); CARBON DIOXIDE 21 mmol/L (22-30); CHLORIDE 102 mmol/L (98-107); GLUCOSE 76 mg/dL (75-110); POTASSIUM 3.5 mmol/L (3.6-5.0); TOTAL PROTEIN 3.9 g/dL (6.3-8.2)
[2019-10-27 06:07] LABS: PLATELET COUNT 42 10^3/uL (150-450)
[2019-10-27 06:09] LABS: ABSOLUTE LYMPHOCYTES# (MANUAL) 0.6 10^3/uL (0.5-4.7); ABSOLUTE MONOCYTES # (MANUAL) 1.7 10^3/uL (0.1-1.4); BAND NEUTROPHILS % (MANUAL) 5 % (3-5); BASOPHILS % (MANUAL) 0 % (0-2); EOSINOPHILS % (MANUAL) 1 % (0-6); LYMPHOCYTES % (MANUAL) 3 % (13-45); MONOCYTES % (MANUAL) 9 % (3-13); SEGMENTED NEUTROPHILS % (MAN) 82 % (42-78); TOTAL CELLS COUNTED 100
[2019-10-27 06:10] LABS: ANISOCYTOSIS 1+; BURR CELLS 1+; OVALOCYTES 1+; PLATELET COMMENT DECREASED; POLYCHROMASIA 1+
[2019-10-27] MEDS: INSULIN REG, HUMAN 100 UNIT/ML 3 ML VIAL (PYX) SUBCUT SCH ×3 (06:12→18:08)
[2019-10-27] MEDS: CALCITRIOL 1 MCG/ML ORAL SOLN 15 ML NG SCH (09:07)
[2019-10-27] MEDS: PANTOPRAZOLE SODIUM 40 MG VIAL IV SCH (09:07)
[2019-10-27] MEDS: ASCORBIC ACID 500 MG TABLET NG SCH (09:07)
[2019-10-27] MEDS: SODIUM BICARBONATE 650 MG TABLET PO SCH ×2 (09:07→21:23)
--- NOTE | 2019-10-27 09:07 | RADIOLOGY REPORT (SQ) ---
EXAM DESCRIPTION: CHEST SINGLE VIEW IMAGES COMPLETED DATE/TIME: 10/27/2019 6:06 am REASON FOR STUDY: ARDS COMPARISON: AP view of the chest from 10/26/2019. EXAM PARAMETERS: NUMBER OF VIEWS: One view. TECHNIQUE: An AP view of the chest was obtained. RADIATION DOSE: NA LIMITATIONS: None. FINDINGS: LUNGS AND PLEURA: Increased consolidation in the left retrocardiac space that is associate d with blunting of the lateral costophrenic sulcus and obscuration of the hemidiaphragm. The mild di ffuse prominence of the interstitium is unchanged. There is no pneumothorax. MEDIASTINUM AND HILAR STRUCTURES: Stable mediastinal and hilar contours. HEART AND VASCULAR STRUCTURES: Stable cardiac silhouette. BONES: No acute findings. HARDWARE: The tip of the endotracheal tube projects 4.5 cm above the ty. The tip of the enteric tube projects past the gastroesophageal junction and outside the field of view of the radiograph. Th e tip of the left-sided central venous catheter and right-sided hemodialysis catheter projects within the SVC. There surgical clips that project above the thoracic inlet. OTHER: No other finding. IMPRESSION: Increased consolidation in the left retrocardiac space that could represent a combinatio n of pleural fluid, atelectasis and/or pneumonia. TECHNICAL DOCUMENTATION: JOB ID: [id number] 2010 [employer]- All Rights Reserved Reading location - IP/workstation name: [email or web address]
[2019-10-27] MEDS: LINEZOLID 600 MG/300 ML RTUPB IV SCH (09:09)
--- NOTE | 2019-10-27 12:02 | PDOC CRITICAL CARE PROG REPORT ---
General Date:: 10/27/19 ICU Day:: 6 Ventilator Day:: 6 Hospital Day:: 6 Resuscitation Status: Full Code Events in the past 12 to 24 Hours:: Still febrile, not hypoadrenal, still on pressors. The patient remains in the ICU onn the ventialtor. When she arrived a 3 days ago she was inseptic shock The patient has bilateral interstitial and alveolar opacities R>L. The patient has a tunnelled dialysis catheter placed prior to this admission. The patient has 3 positive blood culutres likely coming from her tunnellled cath eter. It needs to come out. The patient has a fairly significant metabolic acidosis tosday. Her PH was 7.17 and there is an AG of about 14. The patient was administered 2 amps of bicarb at the start of her diaysis. I spoke to the surgical physician about taking out the catheter. The patient is on 11 mcg of levophed. 10/23 The patient's levophed has been weaned off. Howver, her oxygenation is very poor this AMand her color is poor. CXR shows increased Right base and LLL infiltrates. The patient is growing MRSA in her blood stream and the culprit catheter was removed. Ihjose ordered an ECHO to r/o endocarditis. i called her huisband as I am concened about this hypoxemia. I may consider an FOB as I beleieve there may RLL atelectasis. We may hvae to prone the patient as well. 10/24 The patient had bad hypoxemia yesterday and was proned. We placed her back suine this AM. She is maintaining her 02 sats better than yesterday and it appears that we may not need to rpone her again. The patient is being treated for her MRSA bacteremia. The patient is on Vasopressin alone and that can be possibly be weaned off.Her triglycerides were high a few days ago so we are trying to wean off propofol and rather use Versed. The aptient is going to start nepro tube feeds.Platelets are running a little low at 80. 10/25 The patient remains on the ventialtor well sedated. I hope to ewean off sedation to be better able to assess her mental status today. She is being treated for her MRSA bacteremia The patient grew out Staph in her Bronchail washings as well. [facility] ensure that the bacteremia has cleared. The patient remains on a small dose pof Vasopressin for her BP support. Covid x 2 negative ( last was bronchial washings). The patient got dialyzed yesterday.There were some issues perhaps relating to the catheter position and possibly clots but the function improved post Ativase. 10/26 The patient remains on the ventilator. Her FI02 and PEEP requirements have diminished. She is off the Vasopressin. She is getting dialyzed presently. Her platelts cont inue to drop. 'I have sent off a PF4 Ab titre ( ALFRED?) Her CXR today shows some silhouetting near the left diaphragm which could represent new atelectasis vs consolidation. Reason for ICU Addmission:: Obtunded witrh agonal breathing, hypotension and meeting criteria for septic shock. Physical Exam Vital Signs: Temp Pulse Resp BP Pulse Ox 98.8 F 99 13 114/71 98 10/27/19 10:00 10/27/19 10:00 10/27/19 10:21 10/27/19 10:21 10/27/19 10:00 Intake & Output 10/26/19 10/27/19 10/28/19 06:59 06:59 06:59 Intake Total 3532 3489 300 Output Total 1012 210 200 Balance 2520 3279 100 Weight 81 kg 82.2 kg Weight/Height Weight 82.2 kg Height 5 ft 4 in General appearance: PRESENT: no acute distress Head exam: PRESENT: atraumatic, normocephalic Eye exam: PRESENT: conjunctiva pink Mouth exam: PRESENT: dry mucosa, neck supple Neck exam: PRESENT: full ROM. ABSENT: meningismus, thyromegaly Respiratory exam: PRESENT: unlabored. ABSENT: accessory muscle use Cardiovascular exam: PRESENT: RRR, +S1, +S2 Pulses: PRESENT: normal carotid pulses GI/Abdominal exam: PRESENT: diminished bowel sounds, soft. ABSENT: tenderness Rectal exam: ABSENT: deferred Gentrourinary exam: ABSENT: ecchymosis Extremities exam: ABSENT: calf tenderness, clubbing Neurological exam: PRESENT: other - Patient heavily sedated. After dialysis is completed we will attempt to lighten her sedation. Laboratory/Radiographs Laboratory Results: 10/27/19 05:00 10/27/19 05:00 10/26/19 10/26/19 10/26/19 06:07 20:10 20:10 WBC 17.3 H RBC 3.44 L Hgb 10.6 L D Hct 30.2 L MCV 88 MCH 30.7 MCHC 35.0 RDW 14.1 H Plt Count 56 L Seg Neutrophils % Sodium 131.4 L Potassium 3.7 Chloride 102 Carbon Dioxide 21 L Anion Gap 8 BUN 49 H Creatinine 2.72 H Est GFR ( Amer) 21 L Glucose 109 Calcium 7.0 L* Total Bilirubin AST Alkaline Phosphatase Total Protein Albumin Blood Type O POSITIVE Antibody Screen NEGATIVE 10/27/19 10/27/19 05:00 05:00 WBC 18.5 H RBC 3.55 L Hgb 10.8 L Hct 31.5 L MCV 89 MCH 30.5 MCHC 34.4 RDW 14.8 H Plt Count 42 L Seg Neutrophils % Not Reportable Sodium 131.0 L Potassium 3.5 L Chloride 102 Carbon Dioxide 21 L Anion Gap 8 BUN 53 H Creatinine 2.81 H Est GFR ( Amer) 21 L Glucose 76 Calcium 7.1 L Total Bilirubin 1.1 AST 83 H Alkaline Phosphatase 85 Total Protein 3.9 L Albumin 1.8 L Blood Type Antibody Screen 10/26/19 14:55 Blood Blood Culture (PCR) - Final Staphylococcus Aureus 10/24/19 13:45 Bronchial Washings Gram Stain - Final 10/24/19 13:45 Bronchial Washings Bronchial Washings Culture - Final Mrsa (Meth Resis Staph Aureus) Normal Agueda Absent Impressions: Chest CT 10/20/19 12:41 IMPRESSION: 1. Mild lower lobe consolidation, likely atelectasis. Addition patchy bilateral areas of ground-glass attenuation which are nonspecific and may represent infectious/inflammatory process, including viral pneumonias. 2. Interlobular septal thickening suggestive of mild interstitial edema. Small pericardial effusion. Head CT 10/20/19 18:11 IMPRESSION: NORMAL BRAIN CT WITHOUT CONTRAST. EVIDENCE OF ACUTE STROKE: NO. Chest X-Ray 10/27/19 08:15 IMPRESSION: Increased consolidation in the left retrocardiac space that could represent a combination of pleural fluid, atelectasis and/or pneumonia. Assessment and Plan - Diagnosis (1) Septic shock Is this a current diagnosis for this admission?: Yes Plan: The patient has received bicarb for the metabolioc acidosis and the dialysis may help as well. In the interim she is on pressors witrh Levophed at 11 mcg/min. The patient is on Zyvoxx for her MRSA bacteremia. She has had 3 positivbe separate cutlutres. 10/23 For now it appears that her shock and metabolic acidosis has resolved. 10/24 The patient is being treated for her MRSA bacteremia with Zyvoxx. Her Covid test of 10/19 was negative. At present she is on a small dose of pressor at levo 2mcg/min. 10/26 off all pressors at thsi time. Patient grew out MRSA in the blood and from her catheter. is being treated with zyvoxx. (2) COPD (chronic obstructive pulmonary disease) Qualifiers: COPD type: unspecified COPD Qualified Code(s): J44.9 - Chronic obstructive pulmonary disease, unspecified Is this a current diagnosis for this admission?: Yes Plan: No wheezing, breath sounds distant. The patient is on the ventialtor. She is getting duoneb treatments ABG shows a metabolic acidosis. 10/24 The skyler laird has a long smoking history and I suspect she has fairly significant COPD. When I preformed the bronch yesterday , I did not see gross mucous plugging. I did send off bronchial washings for cuture. (3) ESRD on hemodialysis Is this a current diagnosis for this admission?: Yes Plan: The patient is getting dialyzed tiw. [id number], it appears that her tunnellled cathter will need to come out anmd be replaced by a new catheter in 24-48 hours. The patient is getting dialysis today. 10/23 This patient has a long history of CKD. This conditon has worsened in the past few months necessitating the placement of the dialysis catheter ans start of dialysis at this time. The patient is supposed to have her catheter replaced tomorrow and resume another dialysis session tomorrow. 10/24 I replaced the dialysis catheter this AM in the right IJ. The patient is several liters ahead 10/26 Patient getting diaysis tiw. She is getting dialyzed oresently.ppears to be weorking fairly well. We reallly don't expect renal recovery. (4) Hypocalcemia Is this a current diagnosis for this admission?: Yes Plan: The patient has been getting supllemental IV calcium 10/23 Her corrected calcium is about 7.2. Has received regualr Calcium replacement. 10/24 I have discussed her issues with Dr. pope of Nephrology. We will increase her supplemental calcium nthe next few days. (5) Hypothyroidism Qualifiers: Hypothyroidism type: acquired Qualified Code(s): E03.9 - Hypothyroidism, unspecified Is this a current diagnosis for this admission?: Yes Plan: The patient is getting her home syntrhoid at this time. (6) Hypoxemia Is this a current diagnosis for this admission?: Yes Plan: The patient is increasingly hypoxemic over the past several hours. She is presently on 100% Fi02. There may be an element of atelectasis. to this end I would like to try br onching her when I get permission. If this is nt helful we will likely prone thepatient shortly thereafter. 10/25 much improved with decreased A-a gradient 10/26 Hyoxemia much improved and 02 demads have therefore dropped. Critical Time Critical Time (minutes): 35 Level of Care: ICU -: 1. The care of a critical patient is a dynamic process. This note is a assistance representative synopsis but static in nature. The timeframe for treatments given in order is not necessarily the actual time these treatments may have been done. 2. This patient requires critical care secondary to ongoing requirements for therapy not offered or safe outside the critical care environment. Transfer to a lower level of care will result in altered life or limb morbidity and mortality. 3. Multidisciplinary rounds completed. 4. ABCDE bundle addressed.
[2019-10-27] MEDS ORDERED: DILTIAZEM HCL INJ 25 MG/5 ML VIAL ONE (13:38)
[2019-10-27] MEDS ORDERED: DILTIAZEM HCL/D5W 125 MG/125 ML RTUINJ IV ONE (13:38)
[2019-10-27] MEDS: DILTIAZEM HCL/D5W 125 MG/125 ML RTUINJ IV PRN (13:38)
--- NOTE | 2019-10-27 14:29 | PDOC PROGRESS REPORT ---
Subjective Progress Note for:: 10/27/19 Reason For Visit: Patient seen on dialysis today. She is still in the ICU and intubated and sedated. She remains critically ill even though she is showing some subtle signs of improvement based on hemodynamics as well as respiratory parameters. Patient currently undergoing dialysis and I hope we can extract close to 2 L of fluid as tolerated. She is got generalized anasarca. Labs and medications were reviewed. Dialysis orders were reviewed with the treating dialysis nurse. Physical Exam Vital Signs: Temp Pulse Resp BP Pulse Ox 98.8 F 99 13 119/60 100 10/27/19 10:00 10/27/19 10:00 10/27/19 14:06 10/27/19 14:06 10/27/19 13:50 Intake & Output 10/26/19 10/27/19 10/28/19 06:59 06:59 06:59 Intake Total 3532 3489 600 Output Total 3627 715 2233 Balance 2520 3279 -1000 Weight 81 kg 82.2 kg Exam: Remains intubated and sedated. Cardiovascular exam: PRESENT: +S1, +S2 GI/Abdominal exam: PRESENT: normal bowel sounds, soft. ABSENT: organomegaly, tenderness Results Laboratory Results: 10/27/19 05:00 10/27/19 05:00 10/26/19 10/26/19 10/26/19 06:07 20:10 20:10 WBC 17.3 H RBC 3.44 L Hgb 10.6 L D Hct 30.2 L MCV 88 MCH 30.7 MCHC 35.0 RDW 14.1 H Plt Count 56 L Seg Neutrophils % Sodium 131.4 L Potassium 3.7 Chloride 102 Carbon Dioxide 21 L Anion Gap 8 BUN 49 H Creatinine 2.72 H Est GFR ( Amer) 21 L Glucose 109 Calcium 7.0 L* Total Bilirubin AST Alkaline Phosphatase Total Protein Albumin Blood Type O POSITIVE Antibody Screen NEGATIVE 10/27/19 10/27/19 05:00 05:00 WBC 18.5 H RBC 3.55 L Hgb 10.8 L Hct 31.5 L MCV 89 MCH 30.5 MCHC 34.4 RDW 14.8 H Plt Count 42 L Seg Neutrophils % Not Reportable Sodium 131.0 L Potassium 3.5 L Chloride 102 Carbon Dioxide 21 L Anion Gap 8 BUN 53 H Creatinine 2.81 H Est GFR ( Amer) 21 L Glucose 76 Calcium 7.1 L Total Bilirubin 1.1 AST 83 H Alkaline Phosphatase 85 Total Protein 3.9 L Albumin 1.8 L Blood Type Antibody Screen 10/26/19 14:55 Blood Blood Culture (PCR) - Final Staphylococcus Aureus 10/24/19 13:45 Bronchial Washings Gram Stain - Final 10/24/19 13:45 Bronchial Washings Bronchial Washings Culture - Final Mrsa (Meth Resis Staph Aureus) Normal Agueda Absent Impressions: Chest CT 10/20/19 12:41 IMPRESSION: 1. Mild lower lobe consolidation, likely atelectasis. Addition patchy bilateral areas of ground-glass attenuation which are nonspecific and may represent infectious/inflammatory process, including viral pneumonias. 2. Interlobular septal thickening suggestive of mild interstitial edema. Small pericardial effusion. Head CT 10/20/19 18:11 IMPRESSION: NORMAL BRAIN CT WITHOUT CONTRAST. EVIDENCE OF ACUTE STROKE: NO. Chest X-Ray 10/27/19 08:15 IMPRESSION: Increased consolidation in the left retrocardiac space that could represent a combination of pleural fluid, atelectasis and/or pneumonia. Assessment & Plan - Diagnosis (1) ESRD on hemodialysis Is this a current diagnosis for this admission?: Yes Plan: Patient currently on dialysis. New IJ catheter. Blood pressure tenuous. Plan to remove as much of fluid as allowed which I think is going to be less than 2 L. Labs and medications were reviewed. Dropping platelets and we will hold off on any heparin for her catheter lock. Instead will use TEGOS for cath lock. Dialysis orders were reviewed with the treating dialysis nurse.Her next dialysis will be on Wednesday. (2) Septic shock Is this a current diagnosis for this admission?: Yes Plan: Currently on pressors and antibiotics. Patient growing MRSA and blood in sputum. Patient critically ill. Monitor. (3) Type 2 diabetes mellitus Qualifiers: Diabetes mellitus penitentiary insulin use: unspecified penitentiary insulin use status Diabetes mellitus complication status: with kidney complications Diabetes mellitus complication detail: with nephropathy Qualified Code(s): E11.21 - Type 2 diabetes mellitus with diabetic nephropathy Plan: Being managed by cell manager. (4) CVA (cerebral vascular accident) Qualifiers: CVA mechanism: unspecified Qualified Code(s): I63.9 - Cerebral infarction, unspecified Plan: History of. (5) Hyponatremia Plan: Relatively stable. Monitor. (6) Hypothyroidism Qualifiers: Hypothyroidism type: acquired Qualified Code(s): E03.9 - Hypothyroidism, unspecified Is this a current diagnosis for this admission?: Yes Plan: On replacements. (7) Hypocalcemia Is this a current diagnosis for this admission?: Yes Plan: Corrected calcium now normal. (8) Metabolic acidosis Plan: Responding to dialysis. Monitor. (9) Bipolar disorder Qualifiers: Active/Remission status: currently active Plan: Status quo. (10) Thrombocytopenia Plan: Monitor. Being followed by cell manager. Will hold off on heparin for her catheter lock and we do are not using any heparin for dialysis. (11) Pneumonia Qualifiers: Pneumonia type: due to unspecified organism Laterality: bilateral Lung location: lower lobe of lung Qualified Code(s): J18.9 - Pneumonia, unspecified organism Is this a current diagnosis for this admission?: Yes Plan: Viral/bacterial. Sputum growing MRSA. Persistently elevated leukocytosis is concerning. Being managed by cell manager. (12) Respiratory failure Qualifiers: Chronicity: acute Is this a current diagnosis for this admission?: Yes Plan: Intubated and sedated.
[2019-10-27] MEDS ORDERED: VANCOMYCIN HCL 0 MG in DEXTROSE 5%-WATER 250 ML IV NR (17:00)
[2019-10-27] MEDS ORDERED: DILTIAZEM HCL INJ 25 MG/5 ML VIAL IV ONE (17:45)
[2019-10-27] MEDS: PHARMACY COMMUNICATION ORDER MC SCH (18:08)
[2019-10-27] MEDS: MIDAZOLAM HCL 50 MG/100 ML RTUINJ IV PRN (18:09)
[2019-10-27] MEDS ORDERED: VANCOMYCIN HCL 1,500 MG in DEXTROSE 5%-WATER 250 ML IV ONE (18:30)
[2019-10-27] MEDS ORDERED: RIFAMPIN 300 MG in NORMAL SALINE 250 ML IV SCH (22:00)
--- NOTE | 2019-10-27 23:02 | Progress Note ---
Provider Note Provider Note: [facility] ID Telephone Advice Consultation Patient is a 64-year-old woman with ESRD on HD who presented to the hospital in septic shock due to catheter associated bloodstream infection. She had hypoxic respiratory failure as well. Blood cultures on 10/19 and 10/20 were positive for MRSA. HD catheter was removed on 10/22 and catheter tip was positive for MRSA. A new IJ catheter was placed on 10/24. Lalynet had a urine culture on 10/19 positive for MRSA, also bronchoscopy on 10/23 with BAL positive for MRSA. Most recent blood culture on 10/25 positive for MRSA. TTE was negative for vegetations but suboptimal. He was started on linezolid, today changed to vancomycin and rifampin. ID consulted for recommendations. ALlergies: codeine Allergy (Verified 09/28/19 15:05) Itching latex Allergy (Verified 09/28/19 15:05) Hives liothyronine [From Cytomel] Allergy (Verified 09/28/19 15:05) Shortness of Breath morphine [Morphine] Allergy (Verified 09/28/19 15:05) Itching nalbuphine [From Nubain] Allergy (Verified 09/28/19 15:05) Itching hydrocodone Adverse Reaction (Mild, Verified 09/28/19 15:05) Rash plastic tape Allergy (Uncoded 09/28/19 15:05) Itching Medications: Calcitriol [Rocaltrol] 0.5 mcg PO BID 02/10/19 Cetirizine HCl [Zyrtec] 10 mg PO DAILY 02/10/19 Fenofibrate Nanocrystallized [Fenofibrate] 160 mg PO DAILY 02/10/19 Omeprazole 40 mg PO DAILY 02/10/19 Bupropion HCl [Bupropion Xl] 150 mg PO DAILY 09/28/19 Calcium Acetate [Phoslo 667 mg Capsule] 667 mg PO MEALS 09/28/19 Furosemide [Lasix 40 mg Tablet] 40 mg PO QAM 09/28/19 Gabapentin 300 mg PO QHS 09/28/19 Hydroxyzine Pamoate [Vistaril 25 mg Capsule] 25 mg PO BID 09/28/19 Insulin Glargine,Hum.rec.anlog [Lantus Insulin 100 Unit/mL Insulin Pen] 15 units SUBCUT QHS 09/28/19 Levothyroxine Sodium [Levo-T] 150 mcg PO Q6AM 09/28/19 Lidocaine [Lidoderm 5% (700 mg) Transdermal Patch] 1 patch TOP DAILY 09/28/19 Lisinopril [Prinivil 5 mg Tablet] 5 mg PO DAILY 09/28/19 Metoprolol Tartrate [Lopressor 25 mg Tablet] 25 mg PO Q12 09/28/19 Nifedipine [Nifedipine ER] 90 mg PO DAILY 09/28/19 Quetiapine Fumarate 200 mg PO QHS 09/28/19 Vital Signs: Temp Pulse Resp BP Pulse Ox 99.5 F 105 H 12 112/60 100 10/27/19 20:00 10/27/19 20:00 10/27/19 20:00 10/27/19 20:00 10/27/19 20:40 Intake & Output 10/26/19 10/27/19 10/28/19 06:59 06:59 06:59 Intake Total 3532 3489 1760 Output Total 6661 432 2784 Balance 2520 3279 160 Weight 81 kg 82.2 kg Weight/Height Weight 82.2 kg Height 5 ft 4 in Laboratories: 10/27/19 05:00 10/27/19 05:00 MCV 89 fl (80-97) 10/27/19 05:00 MCH 30.5 pg (27.0-33.4) 10/27/19 05:00 MCHC 34.4 g/dL (32.0-36.0) 10/27/19 05:00 RDW 14.8 % (11.5-14.0) H 10/27/19 05:00 Seg Neutrophils % Not Reportable 10/27/19 05:00 Carbonic Acid 0.90 mmol/L (1.05-1.35) L 10/26/19 03:39 HCO3/H2CO3 Ratio 22:1 10/26/19 03:39 ABG pH 7.45 (7.35-7.45) 10/26/19 03:39 ABG pCO2 29.9 mmHg (35-45) L 10/26/19 03:39 ABG pO2 66.1 mmHg (80-100) L 10/26/19 03:39 ABG HCO3 20.1 mmol/L (20-24) 10/26/19 03:39 ABG O2 Saturation 94.1 % (94-98) 10/26/19 03:39 ABG Base Excess -3.6 mmol/L 10/26/19 03:39 VBG pH 7.36 (7.30-7.42) 10/20/19 09:02 VBG pCO2 43.0 mmHg (35-63) 10/20/19 09:02 VBG HCO3 23.9 mmol/L (20-32) 10/20/19 09:02 VBG Base Excess -1.7 mmol/L 10/20/19 09:02 FiO2 40% 10/26/19 03:39 Chloride 102 mmol/L (98-107) 10/27/19 05:00 Carbon Dioxide 21 mmol/L (22-30) L 10/27/19 05:00 Anion Gap 8 (5-19) 10/27/19 05:00 Est GFR ( Amer) 21 (>60) L 10/27/19 05:00 Glucose 76 mg/dL (75-110) 10/27/19 05:00 Lactic Acid 2.8 mmol/L (0.7-2.1) H 10/21/19 09:15 Calcium 7.1 mg/dL (8.4-10.2) L 10/27/19 05:00 Ionized Calcium Claire 0.84 mmol/L (1.14-1.30) L 10/23/19 05:00 Phosphorus 2.9 mg/dL (2.5-4.5) 10/26/19 03:39 Magnesium 1.7 mg/dL (1.6-2.3) 10/26/19 03:39 Total Bilirubin 1.1 mg/dL (0.2-1.3) 10/27/19 05:00 AST 83 U/L (14-36) H 10/27/19 05:00 Alkaline Phosphatase 85 U/L (38-126) 10/27/19 05:00 Total Protein 3.9 g/dL (6.3-8.2) L 10/27/19 05:00 Albumin 1.8 g/dL (3.5-5.0) L 10/27/19 05:00 Triglycerides 804 mg/dL (<150) H 10/26/19 03:39 Urine Color YELLOW 10/20/19 12:50 Urine Appearance CLOUDY 10/20/19 12:50 Urine pH 7.0 (5.0-9.0) 10/20/19 12:50 Ur Specific [place] 1.011 10/20/19 12:50 Urine Protein >=500 mg/dL (NEGATIVE) H 10/20/19 12:50 Urine Glucose (UA) >=500 mg/dL (NEGATIVE) H 10/20/19 12:50 Urine Ketones TRACE mg/dL (NEGATIVE) H 10/20/19 12:50 Urine Blood MODERATE (NEGATIVE) H 10/20/19 12:50 Urine Nitrite NEGATIVE (NEGATIVE) 10/20/19 12:50 Ur Leukocyte Esterase NEGATIVE (NEGATIVE) 10/20/19 12:50 Urine WBC (Auto) 29 /HPF 10/20/19 12:50 Urine RBC (Auto) 23 /HPF 10/20/19 12:50 Blood Type O POSITIVE 10/26/19 06:07 Antibody Screen NEGATIVE 10/26/19 06:07 10/26/19 20:34 Blood Blood Culture (PCR) - Final Staphylococcus Aureus 10/26/19 14:55 Blood Blood Culture (PCR) - Final Staphylococcus Aureus 10/24/19 13:45 Bronchial Washings Gram Stain - Final 10/24/19 13:45 Bronchial Washings Bronchial Washings Culture - Final Mrsa (Meth Resis Staph Aureus) Normal Agueda Absent Radiology: Chest CT 10/20/19 12:41 IMPRESSION: 1. Mild lower lobe consolidation, likely atelectasis. Addition patchy bilateral areas of ground-glass attenuation which are nonspecific and may represent infectious/inflammatory process, including viral pneumonias. 2. Interlobular septal thickening suggestive of mild interstitial edema. Small pericardial effusion. Head CT 10/20/19 18:11 IMPRESSION: NORMAL BRAIN CT WITHOUT CONTRAST. EVIDENCE OF ACUTE STROKE: NO. Chest X-Ray 10/27/19 08:15 IMPRESSION: Increased consolidation in the left retrocardiac space that could represent a combination of pleural fluid, atelectasis and/or pneumonia. Assessment and Recommendations: Patient with MRSA bacteremia from HD catheter already removed. She has been bacteremic even after removal of the catheter probably due to linezolid. It is bacteriostatic, not indicated for bacteremia. Will recommend vancomycin with HD to keep a trough 15-20. Rifampin has a low barrier to resistance, for which it should not be administered while patients are bacteremic due to high burden of disease. If after 72 hr of vancomycin with adequate trough she is still bacteremic, a JESSICA should be done and scans to look for metastatic infection (discitis, epidural abscess, VOM, psoas abscess, IE). BAL was positive as well, but this is likely seeding from her bacteremia. The new IJ catheter will probably have to be removed at some point as it was placed while she was bacteremic. She will need at least 4 weeks of antibiotics from negative blood cultures if no other sites of metastatic infection. Sharmaine Oleary MD [facility] ID [phone]
[2019-10-28] MEDS: INSULIN REG, HUMAN 100 UNIT/ML 3 ML VIAL (PYX) SUBCUT SCH ×4 (00:33→18:25)
[2019-10-28] MEDS: FENTANYL CITRATE INJ/PF 100 MCG/2 ML AMPUL IV PRN (02:13)
[2019-10-28 06:35] LABS: ANION GAP 10 (5-19); BLOOD UREA NITROGEN 42 mg/dL (7-20); CARBON DIOXIDE 22 mmol/L (22-30); CHLORIDE 101 mmol/L (98-107); GLUCOSE 85 mg/dL (75-110); POTASSIUM 3.6 mmol/L (3.6-5.0)
[2019-10-28 06:42] LABS: HEMATOCRIT 29.8 % (36.0-47.0); HEMOGLOBIN 10.3 g/dL (12.0-15.5); MEAN CORPUSCULAR HEMOGLOBIN 30.8 pg (27.0-33.4); MEAN CORPUSCULAR HGB CONC 34.6 g/dL (32.0-36.0); MEAN CORPUSCULAR VOLUME 89 fl (80-97); RED BLOOD COUNT 3.35 10^6/uL (3.72-5.28); RED CELL DISTRIBUTION WIDTH 14.9 % (11.5-14.0); WHITE BLOOD COUNT 16.5 10^3/uL (4.0-10.5)
[2019-10-28 06:54] LABS: CALCIUM 6.8 mg/dL (8.4-10.2)
[2019-10-28 07:51] LABS: ABSOLUTE LYMPHOCYTES# (MANUAL) 0.8 10^3/uL (0.5-4.7); ABSOLUTE MONOCYTES # (MANUAL) 1.2 10^3/uL (0.1-1.4); BAND NEUTROPHILS % (MANUAL) 3 % (3-5); BASOPHILS % (MANUAL) 0 % (0-2); EOSINOPHILS % (MANUAL) 2 % (0-6); LYMPHOCYTES % (MANUAL) 5 % (13-45); MONOCYTES % (MANUAL) 7 % (3-13); SEGMENTED NEUTROPHILS % (MAN) 83 % (42-78); TOTAL CELLS COUNTED 100
[2019-10-28 07:52] LABS: ANISOCYTOSIS SLIGHT; BURR CELLS SLIGHT; PLATELET COMMENT DECREASED; PLATELET GIANT PRESENT; POIKILOCYTOSIS SLIGHT
--- NOTE | 2019-10-28 10:50 | PDOC CRITICAL CARE PROG REPORT ---
General Date:: 10/28/19 ICU Day:: 7 Ventilator Day:: 7 Hospital Day:: 7 Resuscitation Status: Full Code Reason for ICU Addmission:: Obtunded witrh agonal breathing, hypotension and meeting criteria for septic shock. Physical Exam Vital Signs: Temp Pulse Resp BP Pulse Ox 98.6 F 92 10 L 105/68 100 10/28/19 09:12 10/28/19 10:00 10/28/19 10:00 10/28/19 10:00 10/28/19 10:00 Intake & Output 10/27/19 10/28/19 10/29/19 06:59 06:59 06:59 Intake Total 3489 2410 905 Output Total 210 1615 Balance 3279 795 905 Weight 82.2 kg 82.2 kg Weight/Height Weight 82.2 kg Height 5 ft 4 in General appearance: PRESENT: no acute distress Head exam: PRESENT: atraumatic, normocephalic Eye exam: PRESENT: conjunctiva pink, PERRLA Ear exam: PRESENT: normal external ear exam Mouth exam: PRESENT: dry mucosa Neck exam: ABSENT: carotid bruit, meningismus, tenderness Respiratory exam: PRESENT: clear to auscultation nuvia. ABSENT: accessory muscle use, prolonged expiratory phas GI/Abdominal exam: PRESENT: normal bowel sounds, soft. ABSENT: tenderness Rectal exam: ABSENT: deferred Gentrourinary exam: ABSENT: ecchymosis, erythema Extremities exam: ABSENT: calf tenderness, clubbing, joint swelling Neurological exam: PRESENT: other - remains heavily sedated on the ventialtor Laboratory/Radiographs Laboratory Results: 10/28/19 04:23 10/28/19 04:23 10/28/19 10/28/19 04:23 04:23 WBC 16.5 H RBC 3.35 L Hgb 10.3 L Hct 29.8 L MCV 89 MCH 30.8 MCHC 34.6 RDW 14.9 H Plt Count 25 L* Seg Neutrophils % Not Reportable Sodium 132.8 L Potassium 3.6 Chloride 101 Carbon Dioxide 22 Anion Gap 10 BUN 42 H Creatinine 2.40 H Est GFR ( Amer) 25 L Glucose 85 Calcium 6.8 L* 10/26/19 14:55 Blood Blood Culture (PCR) - Final Staphylococcus Aureus 10/26/19 20:34 Blood Blood Culture (PCR) - Final Staphylococcus Aureus 10/24/19 13:45 Bronchial Washings Gram Stain - Final 10/24/19 13:45 Bronchial Washings Bronchial Washings Culture - Final Mrsa (Meth Resis Staph Aureus) Normal Agueda Absent Impressions: Chest CT 10/20/19 12:41 IMPRESSION: 1. Mild lower lobe consolidation, likely atelectasis. Addition patchy bilateral areas of ground-glass attenuation which are nonspecific and may represent infectious/inflammatory process, including viral pneumonias. 2. Interlobular septal thickening suggestive of mild interstitial edema. Small pericardial effusion. Head CT 10/20/19 18:11 IMPRESSION: NORMAL BRAIN CT WITHOUT CONTRAST. EVIDENCE OF ACUTE STROKE: NO. Chest X-Ray 10/27/19 08:15 IMPRESSION: Increased consolidation in the left retrocardiac space that could represent a combination of pleural fluid, atelectasis and/or pneumonia. Assessment and Plan - Diagnosis (1) Septic shock Is this a current diagnosis for this admission?: No Plan: The patient has received bicarb for the metabolioc acidosis and the dialysis may help as well. In the interim she is on pressors witrh Levophed at 11 mcg/min. The patient is on Zyvoxx for her MRSA bacteremia. She has had 3 positivbe separate cutlutres. 10/23 For now it appears that her shock and metabolic acidosis has resolved. 10/24 The patient is being treated for her MRSA bacteremia with Zyvoxx. Her Covid test of 10/19 was negative. At present she is on a small dose of pressor at levo 2mcg/min. 10/26 off all pressors at thsi time. Patient grew out MRSA in the blood and from her catheter. is being treated with zyvoxx. (2) COPD (chronic obstructive pulmonary disease) Qualifiers: COPD type: unspecified COPD Qualified Code(s): J44.9 - Chronic obstructive pulmonary disease, unspecified Is this a current diagnosis for this admission?: Yes Plan: No wheezing, breath sounds distant. The patient is on the ventialtor. She is getting duoneb treatments ABG shows a metabolic acidosis. 10/24 The skyler laird has a long smoking history and I suspect she has fairly signific ant COPD. When I preformed the bronch yesterday , I did not see gross mucous plugging. I did send off bronchial washings for culture. (3) ESRD on hemodialysis Is this a current diagnosis for this admission?: Yes Plan: The patient is getting dialyzed tiw. [id number], it appears that her tunnellled cathter will need to come out anmd be replaced by a new catheter in 24-48 hours. The patient is getting dialysis today. 10/23 This patient has a long history of CKD. This conditon has worsened in the past few months necessitating the placement of the dialysis catheter ans start of dialysis at this time. The patient is supposed to have her catheter replaced tomorrow and resume another dialysis session tomorrow. 10/24 I replaced the dialysis catheter this AM in the right IJ. The patient is several liters ahead 10/26 Patient getting diaysis tiw. She is getting dialyzed oresently.ppears to be weorking fairly well. We reallly don't expect renal recovery. 10/27 the patient has been getting traditional dialyusis Wednesday, and Wednesday. (4) Hypocalcemia Is this a current diagnosis for this admission?: Yes Plan: The patient has been getting supllemental IV calcium 10/23 Her corrected calcium is about 7.2. Has received regualr Calcium replacement. 10/24 I have discussed her issues with Dr. pope of Nephrology. We will increase her supplemental calcium nthe next few days. 10/27 her corrected Calcium ispresently about8.4 ( given albumin of 1.8). (5) Hypothyroidism Qualifiers: Hypothyroidism type: acquired Qualified Code(s): E03.9 - Hypothyroidism, unspecified Is this a current diagnosis for this admission?: Yes Plan: The patient is getting her home syntrhoid at this time. (6) Endocarditis Qualifiers: Endocarditis type: infective Infective endocarditis organism: bacterial Chronicity: acute Qualified Code(s): I33.0 - Acute and subacute infective endocarditis Is this a current diagnosis for this admission?: Yes Plan: Wew suspect this patient may have endoicarditis. She has had 5 positive cuktures and a catheter tip positve for MRSA. We have just switched coverage from Zyvoxx to vanco since thepatient grew out her last positive culture after several days of Zyvoxx.We ahev asked ID to weigh in. Her tunnelkled catheter was removed about 3-4 days ago. I have request Dr. Ramos do a JESSICA. He will be by after the weekend. I have request 2 new suveillance cultures today. Critical Time Critical Time (minutes): 35 Level of Care: ICU -: 1. The care of a critical patient is a dynamic process. This note is a client service representative synopsis but static in nature. The timeframe for treatments given in order is not necessarily the actual time these treatments may have been done. 2. This patient requires critical care secondary to ongoing requirements for therapy not offered or safe outside the critical care environment. Transfer to a lower level of care will result in altered life or limb morbidity and mortality. 3. Multidisciplinary rounds completed. 4. ABCDE bundle addressed.
[2019-10-28] MEDS: CALCITRIOL 1 MCG/ML ORAL SOLN 15 ML NG SCH (12:35)
[2019-10-28] MEDS: PANTOPRAZOLE SODIUM 40 MG VIAL IV SCH (12:35)
[2019-10-28] MEDS: SODIUM BICARBONATE 650 MG TABLET PO SCH ×2 (12:36→21:40)
[2019-10-28] MEDS: ASCORBIC ACID 500 MG TABLET NG SCH (12:36)
[2019-10-28] MEDS: MIDAZOLAM HCL 50 MG/100 ML RTUINJ IV PRN (12:36)
[2019-10-28] MEDS: NORMAL SALINE 1000 ML 1,000 ML IV PRN ×2 (12:37→21:39)
[2019-10-28] MEDS: DILTIAZEM HCL/D5W 125 MG/125 ML RTUINJ IV PRN (12:38)
[2019-10-28] MEDS: PHARMACY COMMUNICATION ORDER MC SCH (18:25)
[2019-10-29] MEDS: INSULIN REG, HUMAN 100 UNIT/ML 3 ML VIAL (PYX) SUBCUT SCH ×4 (00:15→17:34)
[2019-10-29 05:46] LABS: HEMATOCRIT 34.7 % (36.0-47.0); HEMOGLOBIN 11.8 g/dL (12.0-15.5); MEAN CORPUSCULAR HEMOGLOBIN 30.5 pg (27.0-33.4); MEAN CORPUSCULAR VOLUME 90 fl (80-97); RED BLOOD COUNT 3.87 10^6/uL (3.72-5.28); RED CELL DISTRIBUTION WIDTH 14.6 % (11.5-14.0); WHITE BLOOD COUNT 17.4 10^3/uL (4.0-10.5)
[2019-10-29 06:04] LABS: ANION GAP 8 (5-19); BLOOD UREA NITROGEN 48 mg/dL (7-20); CARBON DIOXIDE 21 mmol/L (22-30); CHLORIDE 105 mmol/L (98-107); GLUCOSE 143 mg/dL (75-110); POTASSIUM 3.4 mmol/L (3.6-5.0); TRIGLYCERIDES 351 mg/dL (<150)
[2019-10-29 06:12] LABS: CALCIUM 6.4 mg/dL (8.4-10.2)
[2019-10-29 06:55] LABS: ABSOLUTE LYMPHOCYTES# (MANUAL) 0.5 10^3/uL (0.5-4.7); ABSOLUTE MONOCYTES # (MANUAL) 0.7 10^3/uL (0.1-1.4); BAND NEUTROPHILS % (MANUAL) 1 % (3-5); BASOPHILS % (MANUAL) 0 % (0-2); EOSINOPHILS % (MANUAL) 0 % (0-6); LYMPHOCYTES % (MANUAL) 3 % (13-45); MONOCYTES % (MANUAL) 4 % (3-13); PLATELET COMMENT DECREASED; SEGMENTED NEUTROPHILS % (MAN) 92 % (42-78); TARGET CELLS SLIGHT; TOTAL CELLS COUNTED 100
[2019-10-29 06:56] LABS: TOXIC VACUOLATION PRESENT
[2019-10-29 06:57] LABS: ANISOCYTOSIS SLIGHT; BURR CELLS 1+; SCHISTOCYTES SLIGHT
[2019-10-29 06:58] LABS: POLYCHROMASIA SLIGHT
[2019-10-29] MEDS: ASCORBIC ACID 500 MG TABLET NG SCH (10:11)
[2019-10-29] MEDS: SODIUM BICARBONATE 650 MG TABLET PO SCH ×2 (10:11→22:03)
[2019-10-29] MEDS: NORMAL SALINE 1000 ML 1,000 ML IV PRN ×2 (10:11→23:32)
[2019-10-29] MEDS: PANTOPRAZOLE SODIUM 40 MG VIAL IV SCH (10:11)
[2019-10-29] MEDS: CALCITRIOL 1 MCG/ML ORAL SOLN 15 ML NG SCH (10:12)
--- NOTE | 2019-10-29 10:44 | PDOC CRITICAL CARE PROG REPORT ---
General Date:: 10/29/19 ICU Day:: 8 Ventilator Day:: 8 Hospital Day:: 8 Resuscitation Status: Full Code Events in the past 12 to 24 Hours:: Still febrile, not hypoadrenal, still on pressors. The patient remains in the ICU onn the ventialtor. When she arrived a 3 days ago she was inseptic shock The patient has bilateral interstitial and alveolar opacities R>L. The patient has a tunnelled dialysis catheter placed prior to this admission. The patient has 3 positive blood culutres likely coming from her tunnellled cath eter. It needs to come out. The patient has a fairly significant metabolic acidosis tosday. Her PH was 7.17 and there is an AG of about 14. The patient was administered 2 amps of bicarb at the start of her diaysis. I spoke to the surgical physician about taking out the catheter. The patient is on 11 mcg of levophed. 10/23 The patient's levophed has been weaned off. Howver, her oxygenation is very poor this AMand her color is poor. CXR shows increased Right base and LLL infiltrates. The patient is growing MRSA in her blood stream and the culprit catheter was removed. Ihjose ordered an ECHO to r/o endocarditis. i called her huisband as I am concened about this hypoxemia. I may consider an FOB as I beleieve there may RLL atelectasis. We may hvae to prone the patient as well. 10/24 The patient had bad hypoxemia yesterday and was proned. We placed her back suine this AM. She is maintaining her 02 sats better than yesterday and it appears that we may not need to rpone her again. The patient is being treated for her MRSA bacteremia. The patient is on Vasopressin alone and that can be possibly be weaned off.Her triglycerides were high a few days ago so we are trying to wean off propofol and rather use Versed. The aptient is going to start nepro tube feeds.Platelets are running a little low at 80. 10/25 The patient remains on the ventialtor well sedated. I hope to ewean off sedation to be better able to assess her mental status today. She is being treated for her MRSA bacteremia The patient grew out Staph in her Bronchail washings as well. [facility] ensure that the bacteremia has cleared. The patient remains on a small dose pof Vasopressin for her BP support. Covid x 2 negative ( last was bronchial washings). The patient got dialyzed yesterday.There were some issues perhaps relating to the catheter position and possibly clots but the function improved post Ativase. 10/26 The patient remains on the ventilator. Her FI02 and PEEP requirements have diminished. She is off the Vasopressin. She is getting dialyzed presently. Her platelts cont inue to drop. 'I have sent off a PF4 Ab titre ( ALFRED?) Her CXR today shows some silhouetting near the left diaphragm which could represent new atelectasis vs consolidation. 10/28 The patient remains on mechanical ventiiltion. She was off sedation for a while yesterday but never opened eys or followed commands Has gained quirte a bit of weight in thepast several days. Her platlelet count continues to drop and is now 17K. Her Hb has stabilzed. The patient is getting regula The patient puts out little urine. DShe is getting dialysis tiw.r calcium replacement for her hypocalcemia The patient likely has endocarditis despite her negative FACUNDO. Facundo to be done tomorrow. The patient is Covid negative Reason for ICU Addmission:: Obtunded witrh agonal breathing, hypotension and meeting criteria for septic shock. Physical Exam Vital Signs: Temp Pulse Resp BP Pulse Ox 96.8 F L 92 16 99/72 L 100 10/29/19 08:00 10/29/19 08:00 10/29/19 10:23 10/29/19 10:23 10/29/19 10:23 Intake & Output 10/28/19 10/29/19 10/30/19 06:59 06:59 06:59 Intake Total 2410 2465 940 Output Total 1615 20 40 Balance 795 2445 900 Weight 82.2 kg 80.4 kg Weight/Height Weight 80.4 kg Height 5 ft 4 in General appearance: PRESENT: no acute distress, thin Head exam: PRESENT: normocephalic Eye exam: ABSENT: nystagmus Ear exam: PRESENT: normal external ear exam Mouth exam: PRESENT: neck supple Neck exam: PRESENT: full ROM Respiratory exam: ABSENT: chest wall tenderness, prolonged expiratory phas GI/Abdominal exam: PRESENT: normal bowel sounds, soft. ABSENT: tenderness Extremities exam: ABSENT: calf tenderness, clubbing Musculoskeletal exam: PRESENT: normal inspection Neurological exam: PRESENT: other - The patient has shown no sign of follwing commands after sedation has been turned down. Laboratory/Radiographs Laboratory Results: 10/29/19 05:25 10/29/19 05:25 10/28/19 10/29/19 10/29/19 12:55 05:25 05:25 WBC 17.4 H RBC 3.87 Hgb 11.8 L Hct 34.7 L MCV 90 MCH 30.5 MCHC 34.0 RDW 14.6 H Plt Count 17 L* Seg Neutrophils % Not Reportable Sodium 134.2 L Potassium 3.4 L Chloride 105 Carbon Dioxide 21 L Anion Gap 8 BUN 48 H Creatinine 2.64 H Est GFR ( Amer) 22 L Glucose 192 H 143 H Calcium 6.4 L* Triglycerides 351 H 10/26/19 14:55 Blood Blood Culture (PCR) - Final Staphylococcus Aureus 10/26/19 20:34 Blood Blood Culture (PCR) - Final Staphylococcus Aureus Impressions: Chest CT 10/20/19 12:41 IMPRESSION: 1. Mild lower lobe consolidation, likely atelectasis. Addition patchy bilateral areas of ground-glass attenuation which are nonspecific and may represent infectious/inflammatory process, including viral pneumonias. 2. Interlobular septal thickening suggestive of mild interstitial edema. Small pericardial effusion. Head CT 10/20/19 18:11 IMPRESSION: NORMAL BRAIN CT WITHOUT CONTRAST. EVIDENCE OF ACUTE STROKE: NO. Chest X-Ray 10/27/19 08:15 IMPRESSION: Increased consolidation in the left retrocardiac space that could represent a combination of pleural fluid, atelectasis and/or pneumonia. Assessment and Plan - Diagnosis (1) Septic shock Is this a current diagnosis for this admission?: No Plan: The patient has received bicarb for the metabolioc acidosis and the dialysis may help as well. In the interim she is on pressors witrh Levophed at 11 mcg/min. The patient is on Zyvoxx for her MRSA bacteremia. She has had 3 positivbe separate cutlutres. 10/23 For now it appears that her shock and metabolic acidosis has resolved. 10/24 The patient is being treated for her MRSA bacteremia with Zyvoxx. Her Covid test of 10/19 was negative. At present she is on a small dose of pressor at levo 2mcg/min. 10/26 off all pressors at thsi time. Patient grew out MRSA in the blood and from her catheter. is being treated with zyvoxx. 10/28 FACUNDO for tomorrow. ABX switched from Zyvoxx to Vanco yesterday. Her catheter has been out 3 days now. Last suveillance cuktures taken yesterday and are thus far negative (2) COPD (chronic obstructive pulmonary disease) Qualifiers: COPD type: unspecified COPD Qualified Code(s): J44.9 - Chronic obstructive pulmonary disease, unspecified Is this a current diagnosis for this admission?: Yes (3) ESRD on hemodialysis Is this a current diagnosis for this admission?: Yes (4) Hypocalcemia Is this a current diagnosis for this admission?: Yes (5) Hypothyroidism Qualifiers: Hypothyroidism type: acquired Qualified Code(s): E03.9 - Hypothyroidism, un specified Is this a current diagnosis for this admission?: Yes (6) Endocarditis Qualifiers: Endocarditis type: infective Infective endocarditis organism: bacterial Chronicity: acute Qualified Code(s): I33.0 - Acute and subacute infective endocarditis Is this a current diagnosis for this admission?: Yes Critical Time Critical Time (minutes): 30 Level of Care: ICU Smoking Cessation Education: 3 to 10 minutes -: 1. The care of a critical patient is a dynamic process. This note is a in store representative synopsis but static in nature. The timeframe for treatments given in order is not necessarily the actual time these treatments may have been done. 2. This patient requires critical care secondary to ongoing requirements for therapy not offered or safe outside the critical care environment. Transfer to a lower level of care will result in altered life or limb morbidity and mortality. 3. Multidisciplinary rounds completed. 4. ABCDE bundle addressed.
[2019-10-29] MEDS: DILTIAZEM HCL/D5W 125 MG/125 ML RTUINJ IV PRN (14:20)
[2019-10-29] MEDS: PHARMACY COMMUNICATION ORDER MC SCH (17:34)
[2019-10-30] MEDS: INSULIN REG, HUMAN 100 UNIT/ML 3 ML VIAL (PYX) SUBCUT SCH ×5 (01:41→23:58)
[2019-10-30 06:29] LABS: HEMATOCRIT 33.3 % (36.0-47.0); HEMOGLOBIN 11.3 g/dL (12.0-15.5); MEAN CORPUSCULAR HEMOGLOBIN 30.6 pg (27.0-33.4); MEAN CORPUSCULAR HGB CONC 33.9 g/dL (32.0-36.0); MEAN CORPUSCULAR VOLUME 90 fl (80-97); RED BLOOD COUNT 3.69 10^6/uL (3.72-5.28); RED CELL DISTRIBUTION WIDTH 14.8 % (11.5-14.0); WHITE BLOOD COUNT 16.4 10^3/uL (4.0-10.5)
[2019-10-30 06:35] LABS: ANION GAP 8 (5-19); BLOOD UREA NITROGEN 51 mg/dL (7-20); CARBON DIOXIDE 22 mmol/L (22-30); CHLORIDE 107 mmol/L (98-107); GLUCOSE 142 mg/dL (75-110); POTASSIUM 3.3 mmol/L (3.6-5.0)
[2019-10-30 06:46] LABS: CALCIUM 6.3 mg/dL (8.4-10.2)
[2019-10-30 08:20] LABS: ABSOLUTE LYMPHOCYTES# (MANUAL) 1.1 10^3/uL (0.5-4.7); ABSOLUTE MONOCYTES # (MANUAL) 0.7 10^3/uL (0.1-1.4); BAND NEUTROPHILS % (MANUAL) 5 % (3-5); BASOPHILS % (MANUAL) 0 % (0-2); EOSINOPHILS % (MANUAL) 0 % (0-6); LYMPHOCYTES % (MANUAL) 5 % (13-45); MONOCYTES % (MANUAL) 4 % (3-13); PLATELET COMMENT DECREASED; SEGMENTED NEUTROPHILS % (MAN) 84 % (42-78); TOTAL CELLS COUNTED 100
[2019-10-30 08:21] LABS: ANISOCYTOSIS SLIGHT; TOXIC GRANULATION 2+
[2019-10-30 08:24] LABS: POLYCHROMASIA SLIGHT
--- NOTE | 2019-10-30 08:27 | RADIOLOGY REPORT (SQ) ---
EXAM DESCRIPTION: CHEST SINGLE VIEW IMAGES COMPLETED DATE/TIME: 10/30/2019 6:18 am REASON FOR STUDY: Acute Respiratory failure COMPARISON: 10/27/2019 EXAM PARAMETERS: NUMBER OF VIEWS: One view. TECHNIQUE: Single frontal radiographic view of the chest acquired. RADIATION DOSE: NA LIMITATIONS: None. FINDINGS: LUNGS AND PLEURA: Asymmetric density at the left hemithorax likely related to left breast prostheses. Stable left basilar opacities and trace veiling pleural effusion. No pneumothorax. MEDIASTINUM AND HILAR STRUCTURES: No masses. Contour normal. HEART AND VASCULAR STRUCTURES: Stable. Vascular calcifications. BONES: No acute findings. HARDWARE: Endotracheal tube tip overlies midthoracic trachea. Enteric tube tip overlies gastric body . Right internal jugular central venous catheter tip overlies cavoatrial junction. Left subclavian approach central venous catheter tip overlies cavoatrial junction. OTHER: No other significant finding. IMPRESSION: Persistent left lower lobe consolidation with trace effusion, similar to prior. New right internal jugular central venous catheter tip at cavoatrial junction. No pneumothorax. Add itional lines and tubes as above. TECHNICAL DOCUMENTATION: JOB ID: [id number] 2010 [employer]- All Rights Reserved Reading location - IP/workstation name: [email or web address]
[2019-10-30 08:29] LABS: PLATELET COUNT 23 10^3/uL (150-450)
[2019-10-30 08:33] LABS: PLATELET LARGE PRESENT
[2019-10-30] MEDS: CALCITRIOL 1 MCG/ML ORAL SOLN 15 ML NG SCH (10:11)
[2019-10-30] MEDS: ASCORBIC ACID 500 MG TABLET NG SCH (10:11)
[2019-10-30] MEDS: SODIUM BICARBONATE 650 MG TABLET PO SCH ×2 (10:11→22:17)
[2019-10-30] MEDS: PANTOPRAZOLE SODIUM 40 MG VIAL IV SCH (10:11)
--- NOTE | 2019-10-30 10:49 | PDOC CRITICAL CARE PROG REPORT ---
General Date:: 10/30/19 ICU Day:: 9 Ventilator Day:: 9 Hospital Day:: 9 Resuscitation Status: Full Code Events in the past 12 to 24 Hours:: No real neuro activity. Getting HD Review of systems relevant to events:: Neurological, CV, renal. Reason for ICU Addmission:: Still not protecting airway, not well responsive. Needs ETT. - Medications: Medications reviewed and adjusted accordingly: Yes Vasopressors:: None Sedation:: None Physical Exam Vital Signs: Temp Pulse Resp BP Pulse Ox 97.5 F 92 13 111/81 100 10/30/19 03:57 10/29/19 21:22 10/30/19 08:38 10/30/19 08:38 10/30/19 08:38 Intake & Output 10/29/19 10/30/19 10/31/19 06:59 06:59 06:59 Intake Total 2465 2109 Output Total 20 895 10 Balance 2445 1214 -10 Weight 80.4 kg 82.5 kg Weight/Height Weight 82.5 kg Height 5 ft 4 in General appearance: PRESENT: no acute distress, thin Head exam: PRESENT: atraumatic, normocephalic Eye exam: PRESENT: conjunctiva pink, EOMI, PERRLA. ABSENT: scleral icterus Ear exam: PRESENT: normal external ear exam Mouth exam: PRESENT: moist, tongue midline Respiratory exam: PRESENT: rhonchi, symmetrical, unlabored Cardiovascular exam: PRESENT: RRR, tachycardia. ABSENT: diastolic murmur, rubs, systolic murmur GI/Abdominal exam: PRESENT: normal bowel sounds, soft. ABSENT: distended, guarding, mass, organolmegaly, rebound, tenderness Rectal exam: PRESENT: deferred Gentrourinary exam: PRESENT: indwelling catheter Extremities exam: PRESENT: pedal edema Musculoskeletal exam: PRESENT: normal inspection Neurological exam: PRESENT: altered Skin exam: PRESENT: dry, intact, warm. ABSENT: cyanosis, rash Tubes/Lines: PRESENT: Endotracheal Tube, Central Line, Nasogastic Tube Laboratory/Radiographs Laboratory Results: 10/30/19 05:20 10/30/19 05:20 10/30/19 10/30/19 05:20 05:20 WBC 16.4 H RBC 3.69 L Hgb 11.3 L Hct 33.3 L MCV 90 MCH 30.6 MCHC 33.9 RDW 14.8 H Plt Count 23 L* Seg Neutrophils % Not Reportable Sodium 137.4 Potassium 3.3 L Chloride 107 Carbon Dioxide 22 Anion Gap 8 BUN 51 H Creatinine 2.83 H Est GFR ( Amer) 20 L Glucose 142 H Calcium 6.3 L* 10/28/19 18:20 Blood Blood Culture (PCR) - Final Staphylococcus Aureus 10/24/19 13:45 Bronchial Washings Fungal Smear - Final 10/24/19 13:45 Bronchial Washings Fungal Smear - Final 10/28/19 12:55 Blood Blood Culture (PCR) - Final Staphylococcus Aureus 10/26/19 14:55 Blood Blood Culture (PCR) - Final Staphylococcus Aureus 10/26/19 14:55 Blood Blood Culture - Final Mrsa (Meth Resis Staph Aureus) 10/26/19 20:34 Blood Blood Culture (PCR) - Final Staphylococcus Aureus 10/26/19 20:34 Blood Blood Culture - Final Mrsa (Meth Resis Staph Aureus) Impressions: Chest CT 10/20/19 12:41 IMPRESSION: 1. Mild lower lobe consolidation, likely atelectasis. Addition patchy bilateral areas of ground-glass attenuation which are nonspecific and may represent infectious/inflammatory process, including viral pneumonias. 2. Interlobular septal thickening suggestive of mild interstitial edema. Small pericardial effusion. Head CT 10/20/19 18:11 IMPRESSION: NORMAL BRAIN CT WITHOUT CONTRAST. EVIDENCE OF ACUTE STROKE: NO. Chest X-Ray 10/30/19 06:00 IMPRESSION: Persistent left lower lobe consolidation with trace effusion, similar to prior. New right internal jugular central venous catheter tip at cavoatrial junction. No pneumothorax. Additional lines and tubes as above. All labs, radiographs, diagnostic studies and EKGs were personally reviewed: Yes In addition, reports of radiographic and diagnostic studies were read: Yes Assessment and Plan - Diagnosis (1) Septic shock Is this a current diagnosis for this admission?: Yes Plan: Resolved (2) COPD (chronic obstructive pulmonary disease) Qualifiers: COPD type: unspecified COPD Qualified Code(s): J44.9 - Chronic obstructive pulmonary disease, unspecified Is this a current diagnosis for this admission?: Yes Plan: Currently inactive. (3) End stage chronic kidney disease Is this a current diagnosis for this admission?: Yes Plan: At stage 4 with a GFR 17. (4) Respiratory failure Qualifiers: Chronicity: acute Is this a current diagnosis for this admission?: Yes Plan: Not able to currently protect airway. Wean as tolerated. (5) CAD (coronary artery disease) Qualifiers: Coronary Disease-Associated Artery/Lesion type: [place] artery [place] vs. transplanted heart: [place] heart Associated angina: angina presence unspecified Qualified Code(s): I25.10 - Atherosclerotic heart disease of [place] coronary artery without angina pectoris Is this a current diagnosis for this admission?: Yes Plan: Inactive (6) Cigarette smoker Is this a current diagnosis for this admission?: Yes Plan: Not currently (7) Malnutrition Qualifiers: Malnutrition type: protein-calorie malnutrition Protein-calorie malnutrition severity: moderate Qualified Code(s): E44.0 - Moderate protein- calorie malnutrition Is this a current diagnosis for this admission?: Yes Plan: Getting TF Plan Summary: She is off all sedation and pressors. Still not responding. Will check 2nd CT of head. Critical Time Critical Time (minutes): 40 Level of Care: ICU Anticipated discharge: SNF Anticipated DC Timeframe: Other -: 1. The care of a critical patient is a dynamic process. This note is a sales support representative synopsis but static in nature. The timeframe for treatments given in order is not necessarily the actual time these treatments may have been done. 2. This patient requires critical care secondary to ongoing requirements for therapy not offered or safe outside the critical care environment. Transfer to a lower level of care will result in altered life or limb morbidity and mortality. 3. Multidisciplinary rounds completed. 4. ABCDE bundle addressed.
[2019-10-30] MEDS ORDERED: CALCIUM GLUCONATE 1000 MG/10 ML INJ IV ONE (10:52)
[2019-10-30 11:15] LABS: PLATELET COUNT 25 10^3/uL (150-450)
[2019-10-30 11:20] LABS: PLATELET COUNT 17 10^3/uL (150-450)
[2019-10-30] MEDS: CALCIUM GLUCONATE 1 GM/NS 50 ML RTU IV SCH ×2 (11:51→12:51)
[2019-10-30 13:03] LABS: PATH REVIEW PATHOLOGIST REVIEWED
[2019-10-30] MEDS: NORMAL SALINE 1000 ML 1,000 ML IV PRN (14:45)
[2019-10-30] MEDS ORDERED: DEXTROSE 40% GEL 15 GM TUBE PO PRN ×2 (15:10)
[2019-10-30] MEDS ORDERED: GLUCAGON,HUMAN RECOMB 1 MG INJ SUBCUT PRN (15:10)
[2019-10-30] MEDS ORDERED: DEXTROSE 50%-WATER 25 GM/50 ML DISP.SYRIN IV PRN ×2 (15:10)
--- NOTE | 2019-10-30 17:04 | RADIOLOGY REPORT (SQ) ---
EXAM DESCRIPTION: CT HEAD WITHOUT IMAGES COMPLETED DATE/TIME: 10/30/2019 4:52 pm REASON FOR STUDY: Off sedation and not waking up. Compare to 1st CT COMPARISON: 10/20/2019 TECHNIQUE: Axial images acquired through the brain without intravenous contrast. Images reviewed wi th bone, brain and subdural windows. Additional sagittal and coronal reconstructions were generated. Images stored on PACS. All CT scanners at this facility use dose modulation, iterative reconstruction, and/or weight based d osing when appropriate to reduce radiation dose to as low as reasonably achievable (ALARA). [facility]: Dose Right [facility]: CareDose [facility]: Dose Right [facility]: Teradose 4D [facility]: Smart [employer] RADIATION DOSE: CT Rad equipment meets quality standard of care and radiation dose reduction techniq ues were employed. CTDIvol: 48.6 mGy. DLP: 904 mGy-cm. mGy. LIMITATIONS: None. FINDINGS: VENTRICLES: Normal size and contour. CEREBRUM: No masses. No hemorrhage. No midline shift. No evidence for acute infarction. Normal gra y/white matter differentiation. No areas of low density in the white matter. CEREBELLUM: No masses. No hemorrhage. No alteration of density. No evidence for acute infarction. EXTRAAXIAL SPACES: No fluid collections. No masses. ORBITS AND GLOBE: No intra- or extraconal masses. Normal contour of globe without masses. CALVARIUM: No fracture. PARANASAL SINUSES: No fluid or mucosal thickening. SOFT TISSUES: No mass or hematoma. OTHER: No other significant finding. IMPRESSION: NORMAL BRAIN CT WITHOUT CONTRAST. EVIDENCE OF ACUTE STROKE: NO. COMMENT: Quality ID # [id number]: Final reports with documentation of one or more dose reduction techniques (e.g., Automated exposure control, adjustment of the mA and/or kV according to patient size, use of iterative reconstruction technique) TECHNICAL DOCUMENTATION: JOB ID: [id number] 2010 [employer]- All Rights Reserved Reading location - IP/workstation name: [email or web address]
[2019-10-30] MEDS: PHARMACY COMMUNICATION ORDER MC SCH (17:30)
[2019-10-30] MEDS ORDERED: VANCOMYCIN HCL 750 MG in DEXTROSE 5%-WATER 250 ML IV SCH (18:00)
[2019-10-30] MEDS: DILTIAZEM HCL 30 MG TABLET PO SCH ×2 (20:02→22:17)
--- NOTE | 2019-10-30 23:48 | PDOC PROGRESS REPORT ---
Subjective Progress Note for:: 10/30/19 Subjective:: I am seeing the patient during dialysis this afternoon. is at bedside. Her blood pressure is on the low side which might limit ultrafiltration. She remains to be intubated and unresponsive without any sedation. She does not have any pressor on board. Reason For Visit: ESRD,PROBABLE SEPSTIC SHOCK Physical Exam Vital Signs: Temp Pulse Resp BP Pulse Ox 97.5 F 92 13 130/69 H 100 10/30/19 10:00 10/29/19 21:22 10/30/19 12:09 10/30/19 12:09 10/30/19 12:08 Intake & Output 10/29/19 10/30/19 10/31/19 06:59 06:59 06:59 Intake Total 2465 2109 Output Total 20 895 20 Balance 2445 1214 -20 Weight 80.4 kg 82.5 kg Vitals during dialysis: Blood pressure 93/79, heart rate of 118, respiration of 13 on mechanical ventilation, blood flow rate of 300 mL/min using a PermCath with dialysate flow of 800 mL/min. Exam: General appearance: PRESENT: Intubated and unresponsive Head exam: PRESENT: atraumatic, normocephalic Eye exam: PRESENT: Eyes are closed Neck exam: ABSENT: JVD Respiratory exam: PRESENT: Diminished breath sounds. ABSENT: crackles, rales, rhonchi, unlabored, wheezes Cardiovascular exam: PRESENT: Regular rate rhythm -+S1, +S2. ABSENT: diastolic murmur, systolic murmur GI/Abdominal exam: PRESENT: Hypoactive bowel sounds, soft. ABSENT: guarding, mass, tenderness Extremities exam: Grade 1 bilateral lower extremity pitting edema with upper extremity edema Neurological exam: PRESENT: Unresponsive Skin exam: PRESENT: dry, warm, pale Cardiovascular exam: PRESENT: +S1, +S2 GI/Abdominal exam: PRESENT: normal bowel sounds, soft. ABSENT: organomegaly, tenderness Results Laboratory Results: 10/30/19 05:20 10/30/19 05:20 10/28/19 10/29/19 10/30/19 04:23 05:25 05:20 WBC RBC Hgb Hct MCV MCH MCHC RDW Plt Count 25 L* 17 L* Seg Neutrophils % Sodium 137.4 Potassium 3.3 L Chloride 107 Carbon Dioxide 22 Anion Gap 8 BUN 51 H Creatinine 2.83 H Est GFR ( Amer) 20 L Glucose 142 H Calcium 6.3 L* 10/30/19 05:20 WBC 16.4 H RBC 3.69 L Hgb 11.3 L Hct 33.3 L MCV 90 MCH 30.6 MCHC 33.9 RDW 14.8 H Plt Count 23 L* Seg Neutrophils % Not Reportable Sodium Potassium Chloride Carbon Dioxide Anion Gap BUN Creatinine Est GFR ( Amer) Glucose Calcium 10/28/19 18:20 Blood Blood Culture (PCR) - Final Staphylococcus Aureus 10/24/19 13:45 Bronchial Washings Fungal Smear - Final 10/24/19 13:45 Bronchial Washings Fungal Smear - Final 10/28/19 12:55 Blood Blood Culture (PCR) - Final Staphylococcus Aureus 10/26/19 14:55 Blood Blood Culture (PCR) - Final Staphylococcus Aureus 10/26/19 14:55 Blood Blood Culture - Final Mrsa (Meth Resis Staph Aureus) 10/26/19 20:34 Blood Blood Culture (PCR) - Final Staphylococcus Aureus 10/26/19 20:34 Blood Blood Culture - Final Mrsa (Meth Resis Staph Aureus) Impressions: Chest CT 10/20/19 12:41 IMPRESSION: 1. Mild lower lobe consolidation, likely atelectasis. Addition patchy bilateral areas of ground-glass attenuation which are nonspecific and may represent infectious/inflammatory process, including viral pneumonias. 2. Interlobular septal thickening suggestive of mild interstitial edema. Small pericardial effusion. Head CT 10/20/19 18:11 IMPRESSION: NORMAL BRAIN CT WITHOUT CONTRAST. EVIDENCE OF ACUTE STROKE: NO. Chest X-Ray 10/30/19 06:00 IMPRESSION: Persistent left lower lobe consolidation with trace effusion, similar to prior. New right internal jugular central venous catheter tip at cavoatrial junction. No pneumothorax. Additional lines and tubes as above. Assessment & Plan - Diagnosis (1) ESRD on hemodialysis Is this a current diagnosis for this admission?: Yes Plan: Patient just got started on hemodialysis couple weeks prior to admission. We will do dialysis today for 2.5 hours, using the patient's PermCath, with 3 potassium bath, blood flow rate of 300 mL per minute, dialysate flow rate of 800 mL per minute, ultrafiltration 1 to 2 L as tolerated, no heparin and no Procrit. Ultrafiltration will be adjusted according to the patient's blood pressure. (2) MRSA bacteremia Is this a current diagnosis for this admission?: Yes Plan: Patient started on vancomycin today. (3) Respiratory failure Qualifiers: Chronicity: acute Is this a current diagnosis for this admission?: Yes Plan: Per assistant manager quality management. (4) Hypokalemia Is this a current diagnosis for this admission?: Yes Plan: Adjust potassium bath on dialysis. (5) Septic shock Is this a current diagnosis for this admission?: Yes Plan: Currently off pressor but still relatively hypotensive today. (6) Thrombocytopenia Is this a current diagnosis for this admission?: Yes Plan: Avoid heparin use. (7) Type 2 diabetes mellitus Qualifiers: Diabetes mellitus mcfp insulin use: unspecified vermin exterminator insulin use status Diabetes mellitus complication status: with kidney complications Diabetes mellitus complication detail: with nephropathy Qualified Code(s): E11.21 - Type 2 diabetes mellitus with diabetic nephropathy Is this a current diagnosis for this admission?: Yes - Time Time with patient: 15-25 minutes
[2019-10-31] MEDS: NORMAL SALINE 1000 ML 1,000 ML IV PRN ×2 (03:57→17:42)
[2019-10-31 04:16] LABS: HEMATOCRIT 29.6 % (36.0-47.0); MEAN CORPUSCULAR HEMOGLOBIN 30.5 pg (27.0-33.4); MEAN CORPUSCULAR HGB CONC 33.9 g/dL (32.0-36.0); MEAN CORPUSCULAR VOLUME 90 fl (80-97); RED BLOOD COUNT 3.28 10^6/uL (3.72-5.28); RED CELL DISTRIBUTION WIDTH 14.2 % (11.5-14.0); WHITE BLOOD COUNT 17.2 10^3/uL (4.0-10.5)
[2019-10-31 04:28] LABS: ANION GAP 8 (5-19); BLOOD UREA NITROGEN 37 mg/dL (7-20); CARBON DIOXIDE 22 mmol/L (22-30); CHLORIDE 106 mmol/L (98-107); GLUCOSE 117 mg/dL (75-110); POTASSIUM 3.5 mmol/L (3.6-5.0)
[2019-10-31 04:37] LABS: CALCIUM 6.4 mg/dL (8.4-10.2)
[2019-10-31 04:38] LABS: PLATELET COUNT 35 10^3/uL (150-450)
[2019-10-31 04:40] LABS: ABSOLUTE LYMPHOCYTES# (MANUAL) 1.2 10^3/uL (0.5-4.7); BASOPHILS % (MANUAL) 0 % (0-2); EOSINOPHILS % (MANUAL) 0 % (0-6); LYMPHOCYTES % (MANUAL) 7 % (13-45); MONOCYTES % (MANUAL) 0 % (3-13); NUCLEATED RED BLOOD CELLS 1 /100 WBC (0); SEGMENTED NEUTROPHILS % (MAN) 93 % (42-78); TOTAL CELLS COUNTED 100
[2019-10-31 04:41] LABS: ANISOCYTOSIS SLIGHT; PLATELET COMMENT DECREASED; POIKILOCYTOSIS SLIGHT; TEAR DROP CELLS SLIGHT; TOXIC GRANULATION 1+
[2019-10-31] MEDS: INSULIN REG, HUMAN 100 UNIT/ML 3 ML VIAL (PYX) SUBCUT SCH ×3 (06:13→18:09)
[2019-10-31] MEDS: DILTIAZEM HCL 30 MG TABLET PO SCH ×3 (06:16→22:51)
[2019-10-31] MEDS ORDERED: CALCIUM GLUCONATE 1000 MG/10 ML INJ IV ONE (08:24)
--- NOTE | 2019-10-31 08:24 | PDOC CRITICAL CARE PROG REPORT ---
General Date:: 10/31/19 ICU Day:: 10 Ventilator Day:: 10 Hospital Day:: 10 Resuscitation Status: Full Code Events in the past 12 to 24 Hours:: BP low but doesnt need HD. Review of systems relevant to events:: Neurological, renal, CV Reason for ICU Addmission:: Still intubated and not awake enough to protect airway. - Medications: Medications reviewed and adjusted accordingly: Yes Vasopressors:: None Sedation:: None Physical Exam Vital Signs: Temp Pulse Resp BP Pulse Ox 99.5 F 100 14 90/60 L 100 10/31/19 03:32 10/30/19 19:00 10/31/19 06:15 10/31/19 06:05 10/31/19 06:00 Intake & Output 10/30/19 10/31/19 11/01/19 06:59 06:59 06:59 Intake Total 2109 2370 Output Total 895 2320 Balance 1214 50 Weight 82.5 kg 83.9 kg Weight/Height Weight 83.9 kg Height 5 ft 4 in General appearance: PRESENT: no acute distress, thin, other - Emaciated. Head exam: PRESENT: atraumatic, normocephalic Eye exam: PRESENT: conjunctiva pink, EOMI, PERRLA. ABSENT: scleral icterus Ear exam: PRESENT: normal external ear exam Mouth exam: PRESENT: moist, tongue midline Respiratory exam: PRESENT: clear to auscultation nuvia, decreased breath sounds. ABSENT: rales, rhonchi, wheezes Cardiovascular exam: PRESENT: RRR, tachycardia. ABSENT: diastolic murmur, rubs, systolic murmur GI/Abdominal exam: PRESENT: normal bowel sounds, soft. ABSENT: distended, guarding, mass, organolmegaly, rebound, tenderness Rectal exam: PRESENT: deferred Neurological exam: PRESENT: other - Opens eyes to tactile stimulation. Yawns on occassion. Nothing purposeful. No posturing. Skin exam: PRESENT: dry, intact, warm. ABSENT: cyanosis, rash Tubes/Lines: PRESENT: Endotracheal Tube, Central Line, Nasogastic Tube Laboratory/Radiographs Laboratory Results: 10/31/19 04:00 10/31/19 04:00 10/28/19 10/29/19 10/30/19 04:23 05:25 05:20 WBC 16.4 H RBC 3.69 L Hgb 11.3 L Hct 33.3 L MCV 90 MCH 30.6 MCHC 33.9 RDW 14.8 H Plt Count 25 L* 17 L* 23 L* Seg Neutrophils % Not Reportable Sodium Potassium Chloride Carbon Dioxide Anion Gap BUN Creatinine Est GFR ( Amer) Glucose Calcium Ionized Calcium Claire 10/31/19 10/31/19 10/31/19 04:00 04:00 04:00 WBC 17.2 H RBC 3.28 L Hgb 10.0 L Hct 29.6 L MCV 90 MCH 30.5 MCHC 33.9 RDW 14.2 H Plt Count 35 L Seg Neutrophils % Not Reportable Sodium 135.7 L Potassium 3.5 L Chloride 106 Carbon Dioxide 22 Anion Gap 8 BUN 37 H Creatinine 2.45 H Est GFR ( Amer) 24 L Glucose 117 H Calcium 6.4 L* Ionized Calcium Claire 1.02 L 10/28/19 12:55 Blood Blood Culture (PCR) - Final Staphylococcus Aureus 10/28/19 18:20 Blood Blood Culture (PCR) - Final Staphylococcus Aureus 10/24/19 13:45 Bronchial Washings Fungal Smear - Final 10/24/19 13:45 Bronchial Washings Fungal Smear - Final Impressions: Chest CT 10/20/19 12:41 IMPRESSION: 1. Mild lower lobe consolidation, likely atelectasis. Addition patchy bilateral areas of ground-glass attenuation which are nonspecific and may represent infectious/inflammatory process, including viral pneumonias. 2. Interlobular septal thickening suggestive of mild interstitial edema. Small pericardial effusion. Head CT 10/30/19 00:00 IMPRESSION: NORMAL BRAIN CT WITHOUT CONTRAST. EVIDENCE OF ACUTE STROKE: NO. Chest X-Ray 10/30/19 06:00 IMPRESSION: Persistent left lower lobe consolidation with trace effusion, similar to prior. New right internal jugular central venous catheter tip at cavoatrial junction. No pneumothorax. Additional lines and tubes as above. All labs, radiographs, diagnostic studies and EKGs were personally reviewed: Yes In addition, reports of radiographic and diagnostic studies were read: Yes Assessment and Plan - Diagnosis (1) Septic shock Is this a current diagnosis for this admission?: Yes Plan: This is resolved. Not on pressors. EF good. (2) COPD (chronic obstructive pulmonary disease) Qualifiers: COPD type: unspecified COPD Qualified Code(s): J44.9 - Chronic obstructive pulmonary disease, unspecified Is this a current diagnosis for this admission?: Yes Plan: Currently inactive. (3) End stage chronic kidney disease Is this a current diagnosis for this admission?: Yes Plan: She is not overloaded, acidotic or hyperkalemic. Does not need HD today. (4) Respiratory failure Qualifiers: Chronicity: acute Is this a current diagnosis for this admission?: Yes Plan: She is not awake enough to protect airway or deal with secretions. Keep intubated. (5) CAD (coronary artery disease) Qualifiers: Coronary Disease-Associated Artery/Lesion type: [place] artery [place] vs. transplanted heart: [place] heart Associated angina: angina presence unspecified Qualified Code(s): I25.10 - Atherosclerotic heart disease of [place] coronary artery without angina pectoris Is this a current diagnosis for this admission?: Yes Plan: Not active. (6) Cigarette smoker Is this a current diagnosis for this admission?: Yes Plan: Probably contributing to her vasculopathy, (7) Malnutrition Qualifiers: Malnutrition type: protein-calorie malnutrition Protein-calorie malnutrition severity: moderate Qualified Code(s): E44.0 - Moderate protein- calorie malnutrition Is this a current diagnosis for this admission?: Yes Plan: Continue TF (8) Endocarditis Qualifiers: Endocarditis type: infective Infective endocarditis organism: bacterial Chronicity: acute Qualified Code(s): I33.0 - Acute and subacute infective endocarditis Is this a current diagnosis for this admission?: Yes Plan: She has persistently positive blood cultures with MRSA. ON vancomycin IV. Plan JESSICA today to further investigate. Plan Summary: Wean as much as possible. Her neurologic status makes this highly unlikely she will recover. Critical Time Critical Time (minutes): 40 Level of Care: ICU Anticipated discharge: SNF Anticipated DC Timeframe: Other -: 1. The care of a critical patient is a dynamic process. This note is a sales representative leather goods synopsis but static in nature. The timeframe for treatments given in order is not necessarily the actual time these treatments may have been done. 2. This patient requires critical care secondary to ongoing requirements for therapy not offered or safe outside the critical care environment. Transfer to a lower level of care will result in altered life or limb morbidity and mortality. 3. Multidisciplinary rounds completed. 4. ABCDE bundle addressed.
[2019-10-31] MEDS: CALCIUM GLUCONATE 1 GM/NS 50 ML RTU IV SCH ×2 (11:09→14:42)
[2019-10-31] MEDS: ASCORBIC ACID 500 MG TABLET NG SCH (11:10)
[2019-10-31] MEDS: PANTOPRAZOLE SODIUM 40 MG VIAL IV SCH (11:10)
[2019-10-31] MEDS: CALCITRIOL 1 MCG/ML ORAL SOLN 15 ML NG SCH (11:10)
[2019-10-31] MEDS: SODIUM BICARBONATE 650 MG TABLET PO SCH ×2 (11:10→22:51)
[2019-10-31] MEDS ORDERED: CALCIUM GLUCONATE 1 GM/NS 50 ML RTU IV SCH (14:30)
[2019-10-31] MEDS: AMINO AC/PROTEIN HYDR/WHEY PRO 11 GM/45 ML PKT NG SCH ×2 (14:42→17:41)
[2019-10-31 16:58] LABS: C DIFFICILE GDH NEGATIVE (NEGATIVE)
--- NOTE | 2019-10-31 19:37 | XCELERA REPORT ---
Study ID: [id number] [address] [id number] Transesophageal Echocardiogram Report Name: CRISTIANE LOVE Age: 64 yrs Gender: Female : 1955 [facility] Date: 10/31/2019 07:10 AM History: Bacteremia Reason For Study: ENDOCARDITIS Ordering Physician: WAN CALDERON Performed By: Chetna Ash Interpretation Summary Left ventricular systolic function is normal. Ejection Fraction = >55%. The right ventricle is normal in size and function. There is a small vegetation or mass on the mitral valve. Echogenic mobile structure attached to the ventricular aspect of the septal leaflet of the mitral valve highly suspicious for vegetation( unuusal location -probably attached to chordal apparatus--? larger vegetation now smaller in size Small pericardial effusion. Procedure A complete two-dimensional transesophageal echocardiogram was performed (2D, spectral and color flow Doppler). Informed consent for Transesophageal Echocardiogram, and use of a contrast agent as needed, was obtained prior to the procedure. The patient was brought to the MICU in a fasting state. An intravenous line was placed. A topical anesthetic agent was used for oropharangeal anesthesia. A bite block was inserted. IV conscious sedation was administered using per ICU team. The patient's vital signs, including blood pressure, heart rate, pulse oximetry and cardiac rhythm were monitored thoughout the procedure. The transesophageal probe was passed without difficulty. The usual views were obtained; basal, mid-esophageal, transgastric and aortic views. The patient tolerated the procedure well without evidence of orophangeal or esophageal trauma. Subsequent to all the images being obtained the probe was removed with out trauma. Left Ventricle The left ventricle is grossly normal size. There is no thrombus. There is normal left ventricular wall thickness. Left ventricular systolic function is normal. Ejection Fraction = >55%. Regional wall motion abnormalities cannot be excluded due to limited visualization. Right Ventricle The right ventricle is normal in size and function. Atria The interatrial septum is intact with no evidence for an atrial septal defect. The left atrial size is normal. Right atrial size is normal. Mitral Valve The mitral valve is grossly normal. There is a small vegetation or mass on the mitral valve. Echogenic mobile structure attached to the ventricular aspect of the septal leaflet of the mitral valve highly suspicious for vegetation ( unuusal location -probably attached to chordal apparatus--? larger vegetation now smaller in size. There is no mitral valve stenosis. There is trace mitral regurgitation. Tricuspid Valve The tricuspid valve is not well visualized, but is grossly normal. There is no tricuspid valve vegetation. There is no tricuspid stenosis. There is trace tricuspid regurgitation. Aortic Valve The aortic valve is trileaflet. There is no aortic valvular vegetation. No hemodynamically significant valvular aortic stenosis. No aortic regurgitation is present. Pulmonic Valve The pulmonic valve is not well seen, but is grossly normal. There is no vegetation on the pulmonic valve. Trace pulmonic valvular regurgitation. Arteries The aortic root is not well visualized but is probably normal size. Severe atherosclerotic plaque(s) in the ascending aorta. Moderate atherosclerotic plaque(s) in the aortic arch. Pericardium Small pericardial effusion. Localized apical anterior pericardial effusion. : WAN CALDERON Anil
[2019-11-01] MEDS: INSULIN REG, HUMAN 100 UNIT/ML 3 ML VIAL (PYX) SUBCUT SCH ×5 (00:59→23:50)
[2019-11-01] MEDS ORDERED: ALBUMIN HUMAN 12.5 GM/50 ML RTUINJ IV SCH (05:00)
[2019-11-01] MEDS ORDERED: EPOETIN ALFA-EPBX 2,000 UNIT, EPOETIN ALFA-EPBX 3,000 UNIT in SYRINGE, DISPOSABLE, 1 EACH IV PRN (05:00)
[2019-11-01] MEDS ORDERED: NORMAL SALINE 1000 ML 1,000 ML IV PRN (05:00)
[2019-11-01 05:42] LABS: HEMATOCRIT 30.4 % (36.0-47.0); HEMOGLOBIN 10.3 g/dL (12.0-15.5); MEAN CORPUSCULAR HEMOGLOBIN 30.5 pg (27.0-33.4); MEAN CORPUSCULAR HGB CONC 33.9 g/dL (32.0-36.0); MEAN CORPUSCULAR VOLUME 90 fl (80-97); RED BLOOD COUNT 3.38 10^6/uL (3.72-5.28); RED CELL DISTRIBUTION WIDTH 14.5 % (11.5-14.0); WHITE BLOOD COUNT 14.3 10^3/uL (4.0-10.5)
[2019-11-01 05:55] LABS: ANION GAP 6 (5-19); BLOOD UREA NITROGEN 42 mg/dL (7-20); CARBON DIOXIDE 22 mmol/L (22-30); CHLORIDE 109 mmol/L (98-107); GLUCOSE 120 mg/dL (75-110); POTASSIUM 3.3 mmol/L (3.6-5.0)
[2019-11-01 06:01] LABS: ARTERIAL BLOOD H2CO3 0.81 mmol/L (1.05-1.35); ARTERIAL BLOOD HCO3 17.2 mmol/L (20-24); ARTERIAL BLOOD O2 SATURATION 94.8 % (94-98); ARTERIAL BLOOD PH 7.42 (7.35-7.45); ARTERIAL BLOOD PO2 70.4 mmHg (80-100)
[2019-11-01 06:02] LABS: ARTERIAL BLOOD FIO2 40%
[2019-11-01 06:03] LABS: CALCIUM 6.4 mg/dL (8.4-10.2)
[2019-11-01 06:19] LABS: ABSOLUTE LYMPHOCYTES# (MANUAL) 1.6 10^3/uL (0.5-4.7); ABSOLUTE MONOCYTES # (MANUAL) 0.1 10^3/uL (0.1-1.4); BAND NEUTROPHILS % (MANUAL) 5 % (3-5); BASOPHILS % (MANUAL) 0 % (0-2); EOSINOPHILS % (MANUAL) 0 % (0-6); LYMPHOCYTES % (MANUAL) 11 % (13-45); MONOCYTES % (MANUAL) 1 % (3-13); SEGMENTED NEUTROPHILS % (MAN) 83 % (42-78); TOTAL CELLS COUNTED 100
[2019-11-01 06:20] LABS: ANISOCYTOSIS SLIGHT; POIKILOCYTOSIS SLIGHT; POLYCHROMASIA SLIGHT; TOXIC GRANULATION SLIGHT
[2019-11-01 06:21] LABS: OVALOCYTES SLIGHT; PLATELET COMMENT DECREASED; PLATELET COUNT 61 10^3/uL (150-450); SCHISTOCYTES SLIGHT
[2019-11-01 06:26] LABS: VANCOMYCIN,TROUGH 14.5 ug/mL (5.0-20.0)
[2019-11-01] MEDS: DILTIAZEM HCL 30 MG TABLET PO SCH (06:29)
[2019-11-01] MEDS: NORMAL SALINE 1000 ML 1,000 ML IV PRN (06:34)
[2019-11-01] MEDS ORDERED: CALCIUM GLUCONATE 1000 MG/10 ML INJ IV ONE (07:15)
--- NOTE | 2019-11-01 09:08 | PDOC CRITICAL CARE PROG REPORT ---
General Date:: 11/01/19 ICU Day:: 11 Ventilator Day:: 11 Hospital Day:: 11 Resuscitation Status: Full Code Events in the past 12 to 24 Hours:: Not waking up enough to extubate. Review of systems relevant to events:: Neurological, renal, CV Reason for ICU Addmission:: Still intubated and not awake enough to protect airway. - Medications: Medications reviewed and adjusted accordingly: Yes Vasopressors:: None Sedation:: None Physical Exam Vital Signs: Temp Pulse Resp BP Pulse Ox 98.1 F 110 H 21 H 96/77 L 96 11/01/19 08:00 11/01/19 08:00 11/01/19 08:00 11/01/19 08:00 11/01/19 08:00 Intake & Output 10/31/19 11/01/19 11/02/19 06:59 06:59 06:59 Intake Total 2370 2325 Output Total 2320 1942 0 Balance 50 383 0 Weight 83.9 kg 83.7 kg Weight/Height Weight 83.7 kg Height 5 ft 4 in General appearance: PRESENT: no acute distress, thin Head exam: PRESENT: atraumatic, normocephalic Eye exam: PRESENT: conjunctiva pink, EOMI, PERRLA. ABSENT: scleral icterus Ear exam: PRESENT: normal external ear exam Mouth exam: PRESENT: moist, tongue midline Respiratory exam: PRESENT: clear to auscultation nuvia. ABSENT: rales, rhonchi, wheezes Cardiovascular exam: PRESENT: RRR, tachycardia. ABSENT: diastolic murmur, rubs, systolic murmur GI/Abdominal exam: PRESENT: normal bowel sounds, soft. ABSENT: distended, guarding, mass, organolmegaly, rebound, tenderness Rectal exam: PRESENT: deferred Extremities exam: PRESENT: full ROM. ABSENT: calf tenderness, clubbing, pedal edema Musculoskeletal exam: PRESENT: normal inspection Neurological exam: PRESENT: altered, other - She arouses only to painful stimuli. Nt purposeful Skin exam: PRESENT: dry, intact, warm. ABSENT: cyanosis, rash Tubes/Lines: PRESENT: Endotracheal Tube, Central Line, Nasogastic Tube Laboratory/Radiographs Laboratory Results: 11/01/19 05:25 11/01/19 05:25 11/01/19 11/01/19 11/01/19 05:25 05:25 05:35 WBC 14.3 H RBC 3.38 L Hgb 10.3 L Hct 30.4 L MCV 90 MCH 30.5 MCHC 33.9 RDW 14.5 H Plt Count 61 L Seg Neutrophils % Not Reportable Carbonic Acid 0.81 L HCO3/H2CO3 Ratio 21:1 ABG pH 7.42 ABG pCO2 27.0 L ABG pO2 70.4 L ABG HCO3 17.2 L ABG O2 Saturation 94.8 ABG Base Excess -6.0 FiO2 40% Sodium 137.3 Potassium 3.3 L Chloride 109 H Carbon Dioxide 22 Anion Gap 6 BUN 42 H Creatinine 2.70 H Est GFR ( Amer) 21 L Glucose 120 H Calcium 6.4 L* 10/28/19 18:20 Blood Blood Culture (PCR) - Final Staphylococcus Aureus 10/28/19 18:20 Blood Blood Culture - Final Mrsa (Meth Resis Staph Aureus) 10/28/19 12:55 Blood Blood Culture (PCR) - Final Staphylococcus Aureus 10/28/19 12:55 Blood Blood Culture - Final Mrsa (Meth Resis Staph Aureus) Impressions: Chest CT 10/20/19 12:41 IMPRESSION: 1. Mild lower lobe consolidation, likely atelectasis. Addition patchy bilateral areas of ground-glass attenuation which are nonspecific and may represent infectious/inflammatory process, including viral pneumonias. 2. Interlobular septal thickening suggestive of mild interstitial edema. Small pericardial effusion. Head CT 10/30/19 00:00 IMPRESSION: NORMAL BRAIN CT WITHOUT CONTRAST. EVIDENCE OF ACUTE STROKE: NO. Chest X-Ray 10/30/19 06:00 IMPRESSION: Persistent left lower lobe consolidation with trace effusion, similar to prior. New right internal jugular central venous catheter tip at cavoatrial junction. No pneumothorax. Additional lines and tubes as above. All labs, radiographs, diagnostic studies and EKGs were personally reviewed: Yes In addition, reports of radiographic and diagnostic studies were read: Yes Assessment and Plan - Diagnosis (1) Septic shock Is this a current diagnosis for this admission?: Yes Plan: Resolved (2) COPD (chronic obstructive pulmonary disease) Qualifiers: COPD type: unspecified COPD Qualified Code(s): J44.9 - Chronic obstructive pulmonary disease, unspecified Is this a current diagnosis for this admission?: Yes Plan: No wheezing, not active. (3) End stage chronic kidney disease Is this a current diagnosis for this admission?: Yes Plan: On HD today. Tolerating thus far. (4) Respiratory failure Qualifiers: Chronicity: acute Is this a current diagnosis for this admission?: Yes Plan: This has fairly resolved but she is not awake enough to protect airway. (5) CAD (coronary artery disease) Qualifiers: Coronary Disease-Associated Artery/Lesion type: [place] artery [place] vs. transplanted heart: [place] heart Associated angina: angina presence unspecified Qualified Code(s): I25.10 - Atherosclerotic heart disease of [place] coronary artery without angina pectoris Is this a current diagnosis for this admission?: Yes (6) Malnutrition Qualifiers: Malnutrition type: protein-calorie malnutrition Protein-calorie malnutrition severity: moderate Qualified Code(s): E44.0 - Moderate protein- calorie malnutrition Is this a current diagnosis for this admission?: Yes Plan: On tube feeds at goal and prosource. (7) Endocarditis Qualifiers: Endocarditis type: infective Infective endocarditis organism: bacterial Chronicity: acute Qualified Code(s): I33.0 - Acute and subacute infective endocarditis Is this a current diagnosis for this admission?: Yes Plan: Confirmed by positive BC and a suggestive JESSICA. 6 weeks antibiotics (8) Thrombocytopenia Is this a current diagnosis for this admission?: Yes Plan: PLT up to 61K spontaneously. Continue to hold off on heparin. (9) Comfort measures only status Is this a current diagnosis for this admission?: Yes Plan: I had a long discussion with the regarding the overall prognosis which is not good. Comfort care was discused but he will need to talk to son who is in [place]. Plan Summary: Continue present level of support. Critical Time Critical Time (minutes): 35 Level of Care: ICU Anticipated discharge: Hospice Anticipated DC Timeframe: Other -: 1. The care of a critical patient is a dynamic process. This note is a teleservices representative synopsis but static in nature. The timeframe for treatments given in order is not necessarily the actual time these treatments may have been done. 2. This patient requires critical care secondary to ongoing requirements for therapy not offered or safe outside the critical care environment. Transfer to a lower level of care will result in altered life or limb morbidity and mortality. 3. Multidisciplinary rounds completed. 4. ABCDE bundle addressed.
[2019-11-01] MEDS: ALBUMIN HUMAN 12.5 GM/50 ML RTUINJ IV PRN ×2 (09:10→09:56)
[2019-11-01] MEDS: ASCORBIC ACID 500 MG TABLET NG SCH (09:12)
[2019-11-01] MEDS: CALCIUM GLUCONATE 1 GM/NS 50 ML RTU IV SCH ×4 (09:12→12:20)
[2019-11-01] MEDS: CALCITRIOL 1 MCG/ML ORAL SOLN 15 ML NG SCH (09:12)
[2019-11-01] MEDS: SODIUM BICARBONATE 650 MG TABLET NG SCH ×2 (09:12→22:08)
[2019-11-01] MEDS: PANTOPRAZOLE SODIUM 40 MG VIAL IV SCH (09:12)
[2019-11-01] MEDS ORDERED: ALBUMIN HUMAN 12.5 GM/50 ML RTUINJ IV PRN (09:41)
[2019-11-01] MEDS ORDERED: ALBUMIN HUMAN 25 GM/100 ML RTUINJ IV PRN (09:42)
[2019-11-01 10:11] LABS: C DIFFICILE GDH NEGATIVE (NEGATIVE)
[2019-11-01] MEDS: AMINO AC/PROTEIN HYDR/WHEY PRO 11 GM/45 ML PKT NG SCH ×2 (13:02→18:20)
[2019-11-01] MEDS: DILTIAZEM HCL 30 MG TABLET NG SCH ×2 (15:38→22:15)
[2019-11-01] MEDS ORDERED: VANCOMYCIN HCL 1,000 MG in DEXTROSE 5%-WATER 250 ML IV SCH (18:00)
--- NOTE | 2019-11-01 21:38 | PDOC PROGRESS REPORT ---
Subjective Progress Note for:: 11/01/19 Subjective:: I am seeing the patient during dialysis treatment. She remains to be intubated and unresponsive without any sedation. She is anuric. Currently her systolic blood pressure is in the low 100s as we try to do ultrafiltration during dialysis. She is being closely monitored. I am giving her albumin infusion to hopefully improve ultrafiltration. Patient also had a JESSICA yesterday by Dr. Ramos and found a small mitral valve vegetation consistent with endocarditis. Reason For Visit: ESRD,PROBABLE SEPSTIC SHOCK Physical Exam Vital Signs: Temp Pulse Resp BP Pulse Ox 98.1 F 110 H 21 H 96/77 L 96 11/01/19 08:00 11/01/19 08:00 11/01/19 08:00 11/01/19 08:00 11/01/19 08:00 Intake & Output 10/31/19 11/01/19 11/02/19 06:59 06:59 06:59 Intake Total 2370 2325 180 Output Total 2320 1942 0 Balance 50 383 180 Weight 83.9 kg 83.7 kg Vitals during dialysis: Blood pressure 104/72, heart rate 112, FiO2 of 40% with 100% oxygenation and respiration of 13. Blood flow of 300 mL/min and dialysate flow of 800 mL/min. Exam: General appearance: PRESENT: Intubated and unresponsive Head exam: PRESENT: atraumatic, normocephalic Eye exam: PRESENT: conjunctiva pale, eyes are open PERRLA. ABSENT: scleral icterus Neck exam: ABSENT: JVD Respiratory exam: PRESENT: Coarse breath sounds. ABSENT: crackles, rales, rhonchi, unlabored, wheezes Cardiovascular exam: PRESENT: Regular rate rhythm -+S1, +S2. ABSENT: diastolic murmur, systolic murmur GI/Abdominal exam: PRESENT: normal bowel sounds, soft. ABSENT: guarding, mass, tenderness Extremities exam: Positive anasarca with both upper extremity and grade 2 bilateral lower extremity edema Neurological exam: PRESENT: Unresponsive. Skin exam: PRESENT: dry, warm, Cardiovascular exam: PRESENT: +S1, +S2 GI/Abdominal exam: PRESENT: normal bowel sounds, soft. ABSENT: organomegaly, tenderness Results Laboratory Results: 11/01/19 05:25 11/01/19 05:25 11/01/19 11/01/19 11/01/19 05:25 05:25 05:35 WBC 14.3 H RBC 3.38 L Hgb 10.3 L Hct 30.4 L MCV 90 MCH 30.5 MCHC 33.9 RDW 14.5 H Plt Count 61 L Seg Neutrophils % Not Reportable Carbonic Acid 0.81 L HCO3/H2CO3 Ratio 21:1 ABG pH 7.42 ABG pCO2 27.0 L ABG pO2 70.4 L ABG HCO3 17.2 L ABG O2 Saturation 94.8 ABG Base Excess -6.0 FiO2 40% Sodium 137.3 Potassium 3.3 L Chloride 109 H Carbon Dioxide 22 Anion Gap 6 BUN 42 H Creatinine 2.70 H Est GFR ( Amer) 21 L Glucose 120 H Calcium 6.4 L* 10/28/19 18:20 Blood Blood Culture (PCR) - Final Staphylococcus Aureus 10/28/19 18:20 Blood Blood Culture - Final Mrsa (Meth Resis Staph Aureus) 10/28/19 12:55 Blood Blood Culture (PCR) - Final Staphylococcus Aureus 10/28/19 12:55 Blood Blood Culture - Final Mrsa (Meth Resis Staph Aureus) Impressions: Chest CT 10/20/19 12:41 IMPRESSION: 1. Mild lower lobe consolidation, likely atelectasis. Addition patchy bilateral areas of ground-glass attenuation which are nonspecific and may represent infectious/inflammatory process, including viral pneumonias. 2. Interlobular septal thickening suggestive of mild interstitial edema. Small pericardial effusion. Head CT 10/30/19 00:00 IMPRESSION: NORMAL BRAIN CT WITHOUT CONTRAST. EVIDENCE OF ACUTE STROKE: NO. Chest X-Ray 10/30/19 06:00 IMPRESSION: Persistent left lower lobe consolidation with trace effusion, similar to prior. New right internal jugular central venous catheter tip at cavoatrial junction. No pneumothorax. Additional lines and tubes as above. Assessment & Plan - Diagnosis (1) ESRD on hemodialysis Is this a current diagnosis for this admission?: Yes Plan: Patient just got started on hemodialysis couple weeks prior to admission. We will do dialysis today for 3.0 hours, using the patient's PermCath, with 3 potassium bath, blood flow rate of 300 mL per minute, dialysate flow rate of 800 mL per minute, ultrafiltration 2-3 L as tolerated, no heparin and Procrit 5000 units intravenously during dialysis.. Ultrafiltration will be adjusted according to the patient's blood pressure. Patient being given albumin during dialysis treatment. (2) MRSA bacteremia Is this a current diagnosis for this admission?: Yes Plan: Patient on vancomycin . (3) Respiratory failure Qualifiers: Chronicity: acute Is this a current diagnosis for this admission?: Yes Plan: Per plant electrical engineer. (4) Endocarditis of mitral valve Is this a current diagnosis for this admission?: Yes Plan: Will need at least 6 weeks of IV antibiotics. (5) Hypokalemia Is this a current diagnosis for this admission?: Yes Plan: Adjust potassium bath on dialysis. (6) Septic shock Is this a current diagnosis for this admission?: Yes Plan: Currently off pressor but still relatively hypotensive today. (7) Thrombocytopenia Is this a current diagnosis for this admission?: Yes Plan: Avoid heparin use. (8) Type 2 diabetes mellitus Qualifiers: Diabetes mellitus tank terminal gauger insulin use: unspecified tank terminal gauger insulin use status Diabetes mellitus complication status: with kidney complications Diabetes mellitus complication detail: with nephropathy Qualified Code(s): E11.21 - Type 2 diabetes mellitus with diabetic nephropathy Is this a current diagnosis for this admission?: Yes - Time Time with patient: 15-25 minutes
[2019-11-02] MEDS: INSULIN REG, HUMAN 100 UNIT/ML 3 ML VIAL (PYX) SUBCUT SCH ×4 (06:29→23:11)
[2019-11-02] MEDS: DILTIAZEM HCL 30 MG TABLET NG SCH ×3 (06:29→23:07)
[2019-11-02 06:41] LABS: HEMATOCRIT 28.3 % (36.0-47.0); HEMOGLOBIN 9.6 g/dL (12.0-15.5); MEAN CORPUSCULAR HEMOGLOBIN 30.5 pg (27.0-33.4); MEAN CORPUSCULAR HGB CONC 33.8 g/dL (32.0-36.0); MEAN CORPUSCULAR VOLUME 90 fl (80-97); RED BLOOD COUNT 3.13 10^6/uL (3.72-5.28); RED CELL DISTRIBUTION WIDTH 14.3 % (11.5-14.0)
[2019-11-02 06:51] LABS: ANION GAP 9 (5-19); BLOOD UREA NITROGEN 32 mg/dL (7-20); CALCIUM 7.2 mg/dL (8.4-10.2); CARBON DIOXIDE 24 mmol/L (22-30); CHLORIDE 105 mmol/L (98-107); GLUCOSE 158 mg/dL (75-110)
[2019-11-02 06:53] LABS: POTASSIUM 3.1 mmol/L (3.6-5.0)
[2019-11-02 07:22] LABS: PLATELET COUNT 87 10^3/uL (150-450)
[2019-11-02 07:28] LABS: SEGMENTED NEUTROPHILS % (MAN) 62 % (42-78); TOTAL CELLS COUNTED 100
[2019-11-02 07:29] LABS: ABSOLUTE LYMPHOCYTES# (MANUAL) 3.4 10^3/uL (0.5-4.7); ABSOLUTE MONOCYTES # (MANUAL) 0.3 10^3/uL (0.1-1.4); BASOPHILS % (MANUAL) 1 % (0-2); EOSINOPHILS % (MANUAL) 0 % (0-6); LYMPHOCYTES % (MANUAL) 24 % (13-45); MONOCYTES % (MANUAL) 2 % (3-13)
[2019-11-02 07:33] LABS: ANISOCYTOSIS SLIGHT
[2019-11-02 07:34] LABS: OVALOCYTES SLIGHT; PLATELET COMMENT DECREASED; POLYCHROMASIA SLIGHT
[2019-11-02 07:35] LABS: BAND NEUTROPHILS % (MANUAL) 11 % (3-5); POIKILOCYTOSIS SLIGHT; SCHISTOCYTES SLIGHT
--- NOTE | 2019-11-02 09:05 | PDOC CRITICAL CARE PROG REPORT ---
General Date:: 11/02/19 ICU Day:: 12 Ventilator Day:: 12 Hospital Day:: 12 Resuscitation Status: Full Code Events in the past 12 to 24 Hours:: Still not awake. Family still considering options. Review of systems relevant to events:: CV, neurological, renal. Reason for ICU Addmission:: Still intubated and not awake enough to protect airway. - Medications: Medications reviewed and adjusted accordingly: Yes Vasopressors:: None Sedation:: None Physical Exam Vital Signs: Temp Pulse Resp BP Pulse Ox 100.2 F 106 H 12 87/56 L 100 11/02/19 06:00 11/02/19 07:00 11/02/19 08:00 11/02/19 07:54 11/02/19 08:37 Intake & Output 11/01/19 11/02/19 11/03/19 06:59 06:59 06:59 Intake Total 2325 1227 Output Total 1942 4028 Balance 383 -2801 Weight 83.7 kg 81.5 kg Weight/Height Weight 81.5 kg Height 5 ft 4 in General appearance: PRESENT: no acute distress, thin Head exam: PRESENT: atraumatic, normocephalic Eye exam: PRESENT: conjunctiva pink, EOMI, PERRLA. ABSENT: scleral icterus Ear exam: PRESENT: normal external ear exam Mouth exam: PRESENT: moist, tongue midline Respiratory exam: PRESENT: clear to auscultation nuvia, decreased breath sounds. ABSENT: rales, rhonchi, wheezes Cardiovascular exam: PRESENT: RRR, tachycardia. ABSENT: diastolic murmur, rubs, systolic murmur GI/Abdominal exam: PRESENT: normal bowel sounds, soft. ABSENT: distended, gua rding, mass, organolmegaly, rebound, tenderness Rectal exam: PRESENT: deferred Gentrourinary exam: PRESENT: indwelling catheter Extremities exam: PRESENT: full ROM. ABSENT: calf tenderness, clubbing, pedal edema Musculoskeletal exam: PRESENT: normal inspection Neurological exam: PRESENT: altered, other - Still obtunded. Skin exam: PRESENT: dry, intact, warm. ABSENT: cyanosis, rash Tubes/Lines: PRESENT: Endotracheal Tube, Central Line, Nasogastic Tube Laboratory/Radiographs Laboratory Results: 11/02/19 06:10 11/02/19 06:10 11/02/19 11/02/19 11/02/19 06:10 06:10 06:10 WBC 14.0 H RBC 3.13 L Hgb 9.6 L Hct 28.3 L MCV 90 MCH 30.5 MCHC 33.8 RDW 14.3 H Plt Count 87 L Seg Neutrophils % Not Reportable Sodium 137.6 Potassium 3.1 L Chloride 105 Carbon Dioxide 24 Anion Gap 9 BUN 32 H Creatinine 2.27 H Est GFR ( Amer) 26 L Glucose 158 H Calcium 7.2 L Ionized Calcium Claire 1.03 L Impressions: Chest CT 10/20/19 12:41 IMPRESSION: 1. Mild lower lobe consolidation, likely atelectasis. Addition patchy bilateral areas of ground-glass attenuation which are nonspecific and may represent infectious/inflammatory process, including viral pneumonias. 2. Interlobular septal thickening suggestive of mild interstitial edema. Small pericardial effusion. Head CT 10/30/19 00:00 IMPRESSION: NORMAL BRAIN CT WITHOUT CONTRAST. EVIDENCE OF ACUTE STROKE: NO. Chest X-Ray 10/30/19 06:00 IMPRESSION: Persistent left lower lobe consolidation with trace effusion, sim ilar to prior. New right internal jugular central venous catheter tip at cavoatrial junction. No pneumothorax. Additional lines and tubes as above. All labs, radiographs, diagnostic studies and EKGs were personally reviewed: Yes In addition, reports of radiographic and diagnostic studies were read: Yes Assessment and Plan - Diagnosis (1) Septic shock Is this a current diagnosis for this admission?: Yes Plan: Resolved (2) COPD (chronic obstructive pulmonary disease) Qualifiers: COPD type: unspecified COPD Qualified Code(s): J44.9 - Chronic obstructive pulmonary disease, unspecified Is this a current diagnosis for this admission?: Yes Plan: Inactive, no wheezing (3) End stage chronic kidney disease Is this a current diagnosis for this admission?: Yes Plan: Dialysis uneventful yesterday. (4) Respiratory failure Qualifiers: Chronicity: acute Is this a current diagnosis for this admission?: Yes Plan: Still not awake enough to protect airway. (5) CAD (coronary artery disease) Qualifiers: Coronary Disease-Associated Artery/Lesion type: [place] artery [place] vs. transplanted heart: [place] heart Associated angina: angina presence uns pecified Qualified Code(s): I25.10 - Atherosclerotic heart disease of [place] coronary artery without angina pectoris Is this a current diagnosis for this admission?: Yes Plan: Inactive. (6) Malnutrition Qualifiers: Malnutrition type: protein-calorie malnutrition Protein-calorie malnutrition severity: moderate Qualified Code(s): E44.0 - Moderate protein- calorie malnutrition Is this a current diagnosis for this admission?: Yes Plan: Tube feeds at goal. (7) Endocarditis Qualifiers: Endocarditis type: infective Infective endocarditis organism: bacterial Chronicity: acute Qualified Code(s): I33.0 - Acute and subacute infective endocarditis Is this a current diagnosis for this admission?: Yes Plan: Continue antibiotics for 6 weeks. (8) Thrombocytopenia Is this a current diagnosis for this admission?: Yes Plan: Nearly resolved, level at 87. OK to restart heparin. (9) Comfort measures only status Is this a current diagnosis for this admission?: Yes Plan: Not activated yet. Apparently according to family it has taken er up to 2 weeks to awaken from sedation. Plan Summary: In view of her ability to take up to 2 weeks to wake up, we should give her this long to see if there will be improvement. Critical Time Critical Time (minutes): 35 Level of Care: ICU Anticipated discharge: SNF Anticipated DC Timeframe: Other -: 1. The care of a critical patient is a dynamic process. This note is a sales representative business courses synopsis but static in nature. The timeframe for treatments given in order is not necessarily the actual time these treatments may have been done. 2. This patient requires critical care secondary to ongoing requirements for therapy not offered or safe outside the critical care environment. Transfer to a lower level of care will result in altered life or limb morbidity and mortality. 3. Multidisciplinary rounds completed. 4. ABCDE bundle addressed.
[2019-11-02] MEDS: PANTOPRAZOLE SODIUM 40 MG VIAL IV SCH (10:00)
[2019-11-02] MEDS ORDERED: POTASSIUM CHLORIDE 10 MEQ TABLET.ER PO SCH (10:00)
[2019-11-02] MEDS: CALCITRIOL 1 MCG/ML ORAL SOLN 15 ML NG SCH (10:59)
[2019-11-02] MEDS: AMINO AC/PROTEIN HYDR/WHEY PRO 11 GM/45 ML PKT NG SCH ×2 (11:20→19:00)
[2019-11-02] MEDS: SODIUM BICARBONATE 650 MG TABLET NG SCH ×2 (11:20→22:31)
[2019-11-02] MEDS: ASCORBIC ACID 500 MG TABLET NG SCH (11:21)
[2019-11-02] MEDS: PANTOPRAZOLE SODIUM 40 MG PACKET.DR NG SCH (11:21)
[2019-11-02] MEDS: ACETAMINOPHEN 325 MG TABLET PO PRN (16:06)
[2019-11-02] MEDS: DIPHENOXYLATE HCL/ATROP SULF 2.5-0.025 MG TABLET PO PRN (16:07)
[2019-11-02] MEDS: RINGERS SOLUTION,LACTATED 500 ML IV PRN ×2 (16:55→18:56)
[2019-11-02] MEDS ORDERED: ALBUMIN HUMAN 12.5 GM/50 ML RTUINJ IV ONE ×2 (17:30→19:30)
[2019-11-02] MEDS ORDERED: RINGERS SOLUTION,LACTATED 500 ML IV PRN (18:37)
[2019-11-02] MEDS: POTASSIUM CHLORIDE 20 MEQ PACKET NG SCH (22:31)
--- NOTE | 2019-11-02 22:44 | PDOC PROGRESS REPORT ---
Subjective Progress Note for:: 11/02/19 Subjective:: Patient still intubated and continues to be unresponsive without any sedation. She is also anuric. Clinically unchanged. Family reports that the patient usually has a prolonged response to anesthesia/sedation with prolonged unresponsiveness in the past. Reason For Visit: ESRD,PROBABLE SEPSTIC SHOCK Physical Exam Vital Signs: Temp Pulse Resp BP Pulse Ox 100.6 F H 103 H 15 89/56 L 100 11/02/19 08:00 11/02/19 08:00 11/02/19 08:00 11/02/19 08:00 11/02/19 08:37 Intake & Output 11/01/19 11/02/19 11/03/19 06:59 06:59 06:59 Intake Total 2325 1227 Output Total 1942 4028 0 Balance 383 -2801 0 Weight 83.7 kg 81.5 kg Exam: General appearance: PRESENT: Intubated and unresponsive Head exam: PRESENT: atraumatic, normocephalic Eye exam: PRESENT: conjunctiva pale, PERRLA. ABSENT: scleral icterus Neck exam: ABSENT: JVD Respiratory exam: PRESENT: Diminished and coarse breath sounds. ABSENT: crackles, rales, rhonchi, unlabored, wheezes Cardiovascular exam: PRESENT: Regular rate rhythm -+S1, +S2. ABSENT: diastolic murmur, systolic murmur GI/Abdominal exam: PRESENT: normal bowel sounds, soft. ABSENT: guarding, mass, tenderness Extremities exam: Grade 2 bilateral lower extremity pitting edema Neurological exam: PRESENT: Unresponsive e. Skin exam: PRESENT: dry, warm, Cardiovascular exam: PRESENT: +S1, +S2 GI/Abdominal exam: PRESENT: normal bowel sounds, soft. ABSENT: organomegaly, tenderness Results Laboratory Results: 11/02/19 06:10 11/02/19 06:10 11/02/19 11/02/19 11/02/19 06:10 06:10 06:10 WBC 14.0 H RBC 3.13 L Hgb 9.6 L Hct 28.3 L MCV 90 MCH 30.5 MCHC 33.8 RDW 14.3 H Plt Count 87 L Seg Neutrophils % Not Reportable Sodium 137.6 Potassium 3.1 L Chloride 105 Carbon Dioxide 24 Anion Gap 9 BUN 32 H Creatinine 2.27 H Est GFR ( Amer) 26 L Glucose 158 H Calcium 7.2 L Ionized Calcium Claire 1.03 L Impressions: Chest CT 10/20/19 12:41 IMPRESSION: 1. Mild lower lobe consolidation, likely atelectasis. Addition patchy bilateral areas of ground-glass attenuation which are nonspecific and may represent infectious/inflammatory process, including viral pneumonias. 2. Interlobular septal thickening suggestive of mild interstitial edema. Small pericardial effusion. Head CT 10/30/19 00:00 IMPRESSION: NORMAL BRAIN CT WITHOUT CONTRAST. EVIDENCE OF ACUTE STROKE: NO. Chest X-Ray 10/30/19 06:00 IMPRESSION: Persistent left lower lobe consolidation with trace effusion, simil ar to prior. New right internal jugular central venous catheter tip at cavoatrial junction. No pneumothorax. Additional lines and tubes as above. Assessment & Plan - Diagnosis (1) ESRD on hemodialysis Is this a current diagnosis for this admission?: Yes Plan: We will plan for next dialysis tomorrow. (2) MRSA bacteremia Is this a current diagnosis for this admission?: Yes Plan: Patient on vancomycin . (3) Respiratory failure Qualifiers: Chronicity: acute Is this a current diagnosis for this admission?: Yes Plan: Per gaming cage cashier. (4) Endocarditis of mitral valve Is this a current diagnosis for this admission?: Yes Plan: Will need at least 6 weeks of IV antibiotics. (5) Hypokalemia Is this a current diagnosis for this admission?: Yes Plan: Adjust potassium bath on dialysis. (6) Septic shock Is this a current diagnosis for this admission?: Yes Plan: Currently off pressor but still relatively hypotensive today. (7) Thrombocytopenia Is this a current diagnosis for this admission?: Yes Plan: Avoid heparin use. Improving. (8) Type 2 diabetes mellitus Qualifiers: Diabetes mellitus terminal gauger insulin use: unspecified prison insulin use status Diabetes mellitus complication status: with kidney complications Diabetes mellitus complication detail: with nephropathy Qualified Code(s): E11.21 - Type 2 diabetes mellitus with diabetic nephropathy Is this a current diagnosis for this admission?: Yes - Time Time with patient: 15-25 minutes
[2019-11-03] MEDS ORDERED: NORMAL SALINE 1000 ML 1,000 ML IV PRN (05:00)
[2019-11-03] MEDS ORDERED: ALBUMIN HUMAN 25 GM/100 ML RTUINJ IV PRN (05:00)
[2019-11-03] MEDS ORDERED: HEPARIN SOD (PORCINE) 1,000 UNIT/ML 10 ML VIAL IV PRN (05:00)
[2019-11-03] MEDS ORDERED: EPOETIN ALFA-EPBX 10,000 UNIT in SYRINGE, DISPOSABLE, 1 EACH IV PRN (05:00)
[2019-11-03] MEDS: INSULIN REG, HUMAN 100 UNIT/ML 3 ML VIAL (PYX) SUBCUT SCH ×3 (06:17→17:25)
[2019-11-03] MEDS: DILTIAZEM HCL 30 MG TABLET NG SCH ×3 (06:18→21:32)
[2019-11-03] MEDS: PANTOPRAZOLE SODIUM 40 MG PACKET.DR NG SCH (06:18)
[2019-11-03 06:41] LABS: HEMATOCRIT 26.3 % (36.0-47.0); MEAN CORPUSCULAR HEMOGLOBIN 31.2 pg (27.0-33.4); MEAN CORPUSCULAR HGB CONC 34.3 g/dL (32.0-36.0); MEAN CORPUSCULAR VOLUME 91 fl (80-97); RED BLOOD COUNT 2.89 10^6/uL (3.72-5.28); RED CELL DISTRIBUTION WIDTH 14.5 % (11.5-14.0); WHITE BLOOD COUNT 7.7 10^3/uL (4.0-10.5)
[2019-11-03 06:58] LABS: ALBUMIN 1.8 g/dL (3.5-5.0); ANION GAP 9 (5-19); BLOOD UREA NITROGEN 40 mg/dL (7-20); CALCIUM 7.3 mg/dL (8.4-10.2); CARBON DIOXIDE 22 mmol/L (22-30); CHLORIDE 107 mmol/L (98-107); GLUCOSE 148 mg/dL (75-110); PHOSPHORUS 3.6 mg/dL (2.5-4.5); POTASSIUM 3.8 mmol/L (3.6-5.0)
[2019-11-03 07:02] LABS: VANCOMYCIN,TROUGH 19.6 ug/mL (5.0-20.0)
[2019-11-03 07:07] LABS: PLATELET COUNT 93 10^3/uL (150-450)
[2019-11-03 07:09] LABS: ABSOLUTE LYMPHOCYTES# (MANUAL) 1.2 10^3/uL (0.5-4.7); ABSOLUTE MONOCYTES # (MANUAL) 0.7 10^3/uL (0.1-1.4); ANISOCYTOSIS 1+; BAND NEUTROPHILS % (MANUAL) 7 % (3-5); BASOPHILS % (MANUAL) 0 % (0-2); EOSINOPHILS % (MANUAL) 0 % (0-6); LYMPHOCYTES % (MANUAL) 16 % (13-45); MONOCYTES % (MANUAL) 9 % (3-13); PLATELET COMMENT ADEQUATE; POLYCHROMASIA 1+; SEGMENTED NEUTROPHILS % (MAN) 68 % (42-78); TOTAL CELLS COUNTED 100
--- NOTE | 2019-11-03 08:38 | PDOC CRITICAL CARE PROG REPORT ---
General Date:: 11/03/19 ICU Day:: 13 Ventilator Day:: 13 Hospital Day:: 13 Resuscitation Status: Full Code Events in the past 12 to 24 Hours:: Still not waking up. Review of systems relevant to events:: Neurological, CV, renal. Reason for ICU Addmission:: Still intubated and not awake enough to protect airway. - Medications: Medications reviewed and adjusted accordingly: Yes Vasopressors:: None Sedation:: None Physical Exam Vital Signs: Temp Pulse Resp BP Pulse Ox 99.9 F 91 10 L 100/64 100 11/03/19 07:58 11/03/19 07:58 11/03/19 07:58 11/03/19 07:58 11/03/19 07:58 Intake & Output 11/02/19 11/03/19 11/04/19 06:59 06:59 06:59 Intake Total 1227 990 Output Total 4028 788 0 Balance -2801 202 0 Weight 81.5 kg 78.8 kg Weight/Height Weight 78.8 kg Height 5 ft 4 in General appearance: PRESENT: no acute distress, thin Head exam: PRESENT: atraumatic, normocephalic Eye exam: PRESENT: conjunctiva pink, EOMI, PERRLA. ABSENT: scleral icterus Ear exam: PRESENT: normal external ear exam Mouth exam: PRESENT: moist, tongue midline Respiratory exam: PRESENT: clear to auscultation nuvia. ABSENT: rales, rhonchi, wheezes Cardiovascular exam: PRESENT: RRR, tachycardia. ABSENT: diastolic murmur, rubs, systolic murmur GI/Abdominal exam: PRESENT: normal bowel sounds, soft. ABSENT: distended, guarding, mass, organolmegaly, rebound, tenderness Rectal exam: PRESENT: deferred Gentrourinary exam: PRESENT: indwelling catheter Extremities exam: PRESENT: full ROM, other - Mild acrocyanosis of R foot.. ABSENT: calf tenderness, clubbing, pedal edema Neurological exam: PRESENT: other - SHe is responsive to pain but does not do anything purposeful. Skin exam: PRESENT: cyanosis - As above. Tubes/Lines: PRESENT: Endotracheal Tube, Central Line, Dialysis catheter, Nasogastic Tube Laboratory/Radiographs Laboratory Results: 11/03/19 06:23 11/03/19 06:13 09/04/20 09/04/20 06:13 06:23 WBC 7.7 RBC 2.89 L Hgb 9.0 L Hct 26.3 L MCV 91 MCH 31.2 MCHC 34.3 RDW 14.5 H Plt Count 93 L Seg Neutrophils % Not Reportable Sodium 137.5 Potassium 3.8 Chloride 107 Carbon Dioxide 22 Anion Gap 9 BUN 40 H Creatinine 2.66 H Est GFR ( Amer) 22 L Glucose 148 H Calcium 7.3 L Phosphorus 3.6 Magnesium 1.8 Albumin 1.8 L Impressions: Chest CT 10/20/19 12:41 IMPRESSION: 1. Mild lower lobe consolidation, likely atelectasis. Addition patchy bilateral areas of ground-glass attenuation which are nonspecific and may represent infectious/inflammatory process, including viral pneumonias. 2. Interlobular septal thickening suggestive of mild interstitial edema. Small pericardial effusion. Head CT 10/30/19 00:00 IMPRESSION: NORMAL BRAIN CT WITHOUT CONTRAST. EVIDENCE OF ACUTE STROKE: NO. Chest X-Ray 10/30/19 06:00 IMPRESSION: Persistent left lower lobe consolidation with trace effusion, similar to prior. New right internal jugular central venous catheter tip at cavoatrial junction. No pneumothorax. Additional lines and tubes as above. All labs, radiographs, diagnostic studies and EKGs were personally reviewed: Yes In addition, reports of radiographic and diagnostic studies were read: Yes Assessment and Plan - Diagnosis (1) Respiratory failure Qualifiers: Chronicity: acute Is this a current diagnosis for this admission?: Yes Plan: She is not awake enough to protect airway. (2) COPD (chronic obstructive pulmonary disease) Qualifiers: COPD type: unspecified COPD Qualified Code(s): J44.9 - Chronic obstructive pulmonary disease, unspecified Is this a current diagnosis for this admission?: Yes Plan: She has only an occassional wheeze. Not active. (3) End stage chronic kidney disease Is this a current diagnosis for this admission?: Yes Plan: Receiving HD M,W and F. With her diareah she is a bit dehydrated and her bp has improved with IVF and albumin. (4) CAD (coronary artery disease) Qualifiers: Coronary Disease-Associated Artery/Lesion type: [place] artery [place] vs. transplanted heart: [place] heart Associated angina: angina presence unspecified Qualified Code(s): I25.10 - Atherosclerotic heart disease of [place] coronary artery without angina pectoris Is this a current diagnosis for this admission?: Yes Plan: Not active. (5) Malnutrition Qualifiers: Malnutrition type: protein-calorie malnutrition Protein-calorie malnutrition severity: moderate Qualified Code(s): E44.0 - Moderate protein- calorie malnutrition Is this a current diagnosis for this admission?: Yes Plan: Continue TF (6) Endocarditis Qualifiers: Endocarditis type: infective Infective endocarditis organism: bacterial Chronicity: acute Qualified Code(s): I33.0 - Acute and subacute infective endocarditis Is this a current diagnosis for this admission?: Yes Plan: Keep on vancomycin being dosed according to her HD schedule. (7) Thrombocytopenia Is this a current diagnosis for this admission?: Yes Plan: Resolved (8) Comfort measures only status Is this a current diagnosis for this admission?: Yes Plan: This is on hold while the family discusses this and their perception that it has taken her up to 2 weeks to wake up in the past. Plan Summary: Wean to the lowest vent settings. Await further family input. Critical Time Critical Time (minutes): 40 Level of Care: ICU Anticipated discharge: SNF Anticipated DC Timeframe: Other -: 1. The care of a critical patient is a dynamic process. This note is a footwear sales representative synopsis but static in nature. The timeframe for treatments given in order is not necessarily the actual time these treatments may have been done. 2. This patient requires critical care secondary to ongoing requirements for therapy not offered or safe outside the critical care environment. Transfer to a lower level of care will result in altered life or limb morbidity and mortality. 3. Multidisciplinary rounds completed. 4. ABCDE bundle addressed.
[2019-11-03] MEDS: ASCORBIC ACID 500 MG TABLET NG SCH (09:53)
[2019-11-03] MEDS: CALCITRIOL 1 MCG/ML ORAL SOLN 15 ML NG SCH (09:53)
[2019-11-03] MEDS: AMINO AC/PROTEIN HYDR/WHEY PRO 11 GM/45 ML PKT NG SCH ×2 (09:53→17:26)
[2019-11-03] MEDS: POTASSIUM CHLORIDE 20 MEQ PACKET NG SCH ×2 (09:53→21:33)
[2019-11-03] MEDS: SODIUM BICARBONATE 650 MG TABLET NG SCH ×2 (09:53→21:33)
[2019-11-03 11:07] LABS: PATH REVIEW PATHOLOGIST REVIEWED
--- NOTE | 2019-11-03 18:14 | PDOC PROGRESS REPORT ---
Subjective Progress Note for:: 11/03/19 Subjective:: I saw the patient during dialysis this afternoon. Patient had an episode of hypotension last night so she was given a liter of fluid and some albumin. Pressure now is acceptable. She is not on any pressor. She remains to be intubated and unresponsive despite no sedation. So far she is tolerating dialysis. Reason For Visit: ESRD,PROBABLE SEPSTIC SHOCK Physical Exam Vital Signs: Temp Pulse Resp BP Pulse Ox 100.2 F 97 12 101/56 L 100 11/03/19 16:00 11/03/19 16:00 11/03/19 16:00 11/03/19 16:00 11/03/19 16:48 Intake & Output 11/02/19 11/03/19 11/04/19 06:59 06:59 06:59 Intake Total 1227 990 82 Output Total 4028 788 2520 Balance -2801 202 -2438 Weight 81.5 kg 78.8 kg 78.8 kg Exam: General appearance: PRESENT: Intubated and unresponsive Head exam: PRESENT: atraumatic, normocephalic Eye exam: PRESENT: conjunctiva pale, PERRLA. ABSENT: scleral icterus Neck exam: ABSENT: JVD Respiratory exam: PRESENT: Slightly coarse and diminished breath sounds. ABSENT: crackles, rales, rhonchi, unlabored, wheezes Cardiovascular exam: PRESENT: Regular rate rhythm -+S1, +S2. ABSENT: diastolic murmur, systolic murmur GI/Abdominal exam: PRESENT: normal bowel sounds, soft. ABSENT: guarding, mass, tenderness Extremities exam: Slightly decreased bilateral upper extremity edema grade 2 bilateral lower extremity pitting edema Neurological exam: PRESENT: Unresponsive. Skin exam: PRESENT: dry, warm, generalized pallor Cardiovascular exam: PRESENT: +S1, +S2 GI/Abdominal exam: PRESENT: normal bowel sounds, soft. ABSENT: organomegaly, tenderness Results Laboratory Results: 11/03/19 06:23 11/03/19 06:13 11/03/19 11/03/19 06:13 06:23 WBC 7.7 RBC 2.89 L Hgb 9.0 L Hct 26.3 L MCV 91 MCH 31.2 MCHC 34.3 RDW 14.5 H Plt Count 93 L Seg Neutrophils % Not Reportable Sodium 137.5 Potassium 3.8 Chloride 107 Carbon Dioxide 22 Anion Gap 9 BUN 40 H Creatinine 2.66 H Est GFR ( Amer) 22 L Glucose 148 H Calcium 7.3 L Phosphorus 3.6 Magnesium 1.8 Albumin 1.8 L Impressions: Chest CT 10/20/19 12:41 IMPRESSION: 1. Mild lower lobe consolidation, likely atelectasis. Addition patchy bilateral areas of ground-glass attenuation which are nonspecific and may represent infectious/inflammatory process, including viral pneumonias. 2. Interlobular septal thickening suggestive of mild interstitial edema. Small pericardial effusion. Head CT 10/30/19 00:00 IMPRESSION: NORMAL BRAIN CT WITHOUT CONTRAST. EVIDENCE OF ACUTE STROKE: NO. Chest X-Ray 10/30/19 06:00 IMPRESSION: Persistent left lower lobe consolidation with trace effusion, similar to prior. New right internal jugular central venous catheter tip at cavoatrial junction. No pneumothorax. Additional lines and tubes as above. Assessment & Plan - Diagnosis (1) ESRD on hemodialysis Is this a current diagnosis for this admission?: Yes Plan: We will do dialysis today for 3 hours, using the patient's PermCath, with 3 calcium with 3 potassium bath, blood flow rate of 300 mL per minute, dialysate flow rate of 600 mL per minute, ultrafiltration 2 L as tolerated, no heparin and Procrit with 10,000 units during dialysis intravenously. I ordered albumin 25 g to be given at the start of dialysis due to hypoalbuminemia. Tegos will be used for the PermCath ports due to thrombocytopenia. (2) MRSA bacteremia Is this a current diagnosis for this admission?: Yes Plan: Patient on vancomycin . (3) Respiratory failure Qualifiers: Chronicity: acute Is this a current diagnosis for this admission?: Yes Plan: Per design project manager. (4) Endocarditis of mitral valve Is this a current diagnosis for this admission?: Yes Plan: Will need at least 6 weeks of IV antibiotics. (5) Hypokalemia Is this a current diagnosis for this admission?: Yes Plan: Adjust potassium bath on dialysis. (6) Septic shock Is this a current diagnosis for this admission?: Yes Plan: Currently off pressor but still relatively hypotensive today. (7) Hypocalcemia Is this a current diagnosis for this admission?: Yes Plan: Adjust calcium bath on dialysis. (8) Thrombocytopenia Is this a current diagnosis for this admission?: Yes Plan: Avoid heparin use. Improving. (9) Type 2 diabetes mellitus Qualifiers: Diabetes mellitus termite renewal inspector insulin use: unspecified termite renewal inspector insulin use status Diabetes mellitus complication status: with kidney complications Diabetes mellitus complication detail: with nephropathy Qualified Code(s): E11.21 - Type 2 diabetes mellitus with diabetic nephropathy Is this a current diagnosis for this admission?: Yes - Time Time with patient: 15-25 minutes
[2019-11-03] MEDS: VANCOMYCIN HCL 750 MG in DEXTROSE 5%-WATER 250 ML IV SCH (18:32)
[2019-11-04] MEDS: INSULIN REG, HUMAN 100 UNIT/ML 3 ML VIAL (PYX) SUBCUT SCH ×5 (00:50→23:49)
[2019-11-04] MEDS: ACETAMINOPHEN 325 MG TABLET PO PRN (02:38)
[2019-11-04] MEDS ORDERED: LEVOTHYROXINE SODIUM 0.15 MG TABLET PO ONE ×2 (04:27→06:45)
[2019-11-04 05:02] LABS: HEMATOCRIT 26.4 % (36.0-47.0); MEAN CORPUSCULAR HEMOGLOBIN 31.1 pg (27.0-33.4); MEAN CORPUSCULAR VOLUME 91 fl (80-97); PLATELET COUNT 102 10^3/uL (150-450); RED BLOOD COUNT 2.89 10^6/uL (3.72-5.28); RED CELL DISTRIBUTION WIDTH 14.5 % (11.5-14.0); WHITE BLOOD COUNT 8.8 10^3/uL (4.0-10.5)
[2019-11-04 05:16] LABS: ANION GAP 9 (5-19); BLOOD UREA NITROGEN 33 mg/dL (7-20); CALCIUM 7.6 mg/dL (8.4-10.2); CARBON DIOXIDE 23 mmol/L (22-30); CHLORIDE 106 mmol/L (98-107); GLUCOSE 145 mg/dL (75-110)
[2019-11-04] MEDS ORDERED: ALBUMIN HUMAN 500 ML IV ONE ×2 (06:23→06:54)
[2019-11-04] MEDS: DILTIAZEM HCL 30 MG TABLET NG SCH ×3 (06:55→21:43)
[2019-11-04] MEDS: PANTOPRAZOLE SODIUM 40 MG PACKET.DR NG SCH (06:55)
--- NOTE | 2019-11-04 08:16 | PDOC CRITICAL CARE PROG REPORT ---
General ICU Day:: 14 Ventilator Day:: 14 Hospital Day:: 14 Resuscitation Status: Full Code Events in the past 12 to 24 Hours:: Essentialy no change Review of systems relevant to events:: Neurological, CV , renal. Reason for ICU Addmission:: Still intubated and not awake enough to protect airw ay. - Medications: Medications reviewed and adjusted accordingly: Yes Vasopressors:: None Sedation:: None. Physical Exam Vital Signs: Temp Pulse Resp BP Pulse Ox 99.9 F 96 20 70/52 L 100 11/04/19 07:34 11/04/19 07:00 11/04/19 06:21 11/04/19 06:21 11/04/19 06:21 Intake & Output 11/03/19 11/04/19 11/05/19 06:59 06:59 06:59 Intake Total 990 650 Output Total 788 3153 Balance 202 -2503 Weight 78.8 kg 78.8 kg Weight/Height Weight 78.8 kg Height 5 ft 4 in General appearance: PRESENT: no acute distress, thin Head exam: PRESENT: atraumatic, normocephalic Eye exam: PRESENT: conjunctiva pink, EOMI, PERRLA. ABSENT: scleral icterus Ear exam: PRESENT: normal external ear exam Mouth exam: PRESENT: moist, tongue midline Respiratory exam: PRESENT: clear to auscultation nuvia, rhonchi - Rhonchi heard on R side.. ABSENT: rales, wheezes Cardiovascular exam: PRESENT: RRR. ABSENT: diastolic murmur, rubs, systolic murmur GI/Abdominal exam: PRESENT: normal bowel sounds, soft. ABSENT: distended, guarding, mass, organolmegaly, rebound, tenderness Rectal exam: PRESENT: deferred Gentrourinary exam: PRESENT: indwelling catheter Extremities exam: PRESENT: full ROM. ABSENT: calf tenderness, clubbing, pedal edema Musculoskeletal exam: PRESENT: normal inspection Neurological exam: PRESENT: altered, other - Opens eyes to painful stimuli. Tubes/Lines: PRESENT: Endotracheal Tube, Central Line, Nasogastic Tube Laboratory/Radiographs Laboratory Results: 11/04/19 04:50 11/04/19 04:50 11/04/19 11/04/19 04:50 04:50 WBC 8.8 RBC 2.89 L Hgb 9.0 L Hct 26.4 L MCV 91 MCH 31.1 MCHC 34.0 RDW 14.5 H Plt Count 102 L Sodium 138.4 Potassium 4.0 Chloride 106 Carbon Dioxide 23 Anion Gap 9 BUN 33 H Creatinine 2.20 H Est GFR ( Amer) 27 L Glucose 145 H Calcium 7.6 L Impressions: Chest CT 10/20/19 12:41 IMPRESSION: 1. Mild lower lobe consolidation, likely atelectasis. Addition patchy bilateral areas of ground-glass attenuation which are nonspecific and may represent infectious/inflammatory process, including viral pneumonias. 2. Interlobular septal thickening suggestive of mild interstitial edema. Small pericardial effusion. Head CT 10/30/19 00:00 IMPRESSION: NORMAL BRAIN CT WITHOUT CONTRAST. EVIDENCE OF ACUTE STROKE: NO. Chest X-Ray 10/30/19 06:00 IMPRESSION: Persistent left lower lobe consolidation with trace effusion, similar to prior. New right internal jugular central venous catheter tip at cavoatrial junction. No pneumothorax. Additional lines and tubes as above. All labs, radiographs, diagnostic studies and EKGs were personally reviewed: Yes In addition, reports of radiographic and diagnostic studies were read: Yes Assessment and Plan - Diagnosis (1) Respiratory failure Qualifiers: Chronicity: acute Is this a current diagnosis for this admission?: Yes Plan: She is stil not awake enough to protect airway. (2) COPD (chronic obstructive pulmonary disease) Qualifiers: COPD type: unspecified COPD Qualified Code(s): J44.9 - Chronic obstructive pulmonary disease, unspecified Is this a current diagnosis for this admission?: Yes Plan: Rhonchi but no wheezing. (3) End stage chronic kidney disease Is this a current diagnosis for this admission?: Yes Plan: On intermittent HD, None needed today. (4) CAD (coronary artery disease) Qualifiers: Coronary Disease-Associated Artery/Lesion type: [place] artery [place] vs. transplanted heart: [place] heart Associated angina: angina presence unspecif ied Qualified Code(s): I25.10 - Atherosclerotic heart disease of [place] c oronary artery without angina pectoris Is this a current diagnosis for this admission?: Yes Plan: Inactive. (5) Malnutrition Qualifiers: Malnutrition type: protein-calorie malnutrition Protein-calorie malnutrition severity: moderate Qualified Code(s): E44.0 - Moderate protein- calorie malnutrition Is this a current diagnosis for this admission?: Yes Plan: Continue on TF. (6) Endocarditis Qualifiers: Endocarditis type: infective Infective endocarditis organism: bacterial Chronicity: acute Qualified Code(s): I33.0 - Acute and subacute infective endocarditis Is this a current diagnosis for this admission?: Yes Plan: Blood cultures still positive. Need to have them cleared. (7) Thrombocytopenia Is this a current diagnosis for this admission?: Yes Plan: Resolved, PLT count 103. (8) Comfort measures only status Is this a current diagnosis for this admission?: Yes Plan: On hold (9) Hypothyroid Is this a current diagnosis for this admission?: Yes Plan: She is back on synthroid. Her neuro status was like this while she was still getting synthroid, I expect no real change. Plan Summary: Continue to continue care until family agrees to withdraw. Critical Time Critical Time (minutes): 35 Level of Care: ICU Anticipated discharge: Hospice Anticipated DC Timeframe: Other -: 1. The care of a critical patient is a dynamic process. This note is a office machines sales representative synopsis but static in nature. The timeframe for treatments gi shannan in order is not necessarily the actual time these treatments may have been done. 2. This patient requires critical care secondary to ongoing requirements for therapy not offered or safe outside the critical care environment. Transfer to a lower level of care will result in altered life or limb morbidity and mortality. 3. Multidisciplinary rounds completed. 4. ABCDE bundle addressed.
[2019-11-04] MEDS: POTASSIUM CHLORIDE 20 MEQ PACKET NG SCH ×2 (11:41→21:43)
[2019-11-04] MEDS: SODIUM BICARBONATE 650 MG TABLET NG SCH ×2 (11:41→21:43)
[2019-11-04] MEDS: ASCORBIC ACID 500 MG TABLET NG SCH (11:41)
[2019-11-04] MEDS: AMINO AC/PROTEIN HYDR/WHEY PRO 11 GM/45 ML PKT NG SCH ×2 (11:42→17:58)
[2019-11-04] MEDS: CALCITRIOL 1 MCG/ML ORAL SOLN 15 ML NG SCH (11:42)
[2019-11-04] MEDS: LEVOTHYROXINE SODIUM 0.15 MG TABLET PO SCH (11:45)
[2019-11-05] MEDS: PANTOPRAZOLE SODIUM 40 MG PACKET.DR NG SCH (06:32)
[2019-11-05] MEDS: DILTIAZEM HCL 30 MG TABLET NG SCH ×3 (06:32→22:38)
[2019-11-05] MEDS: LEVOTHYROXINE SODIUM 0.15 MG TABLET PO SCH (06:32)
[2019-11-05] MEDS: INSULIN REG, HUMAN 100 UNIT/ML 3 ML VIAL (PYX) SUBCUT SCH ×3 (06:47→17:14)
[2019-11-05 07:42] LABS: ANION GAP 10 (5-19); BLOOD UREA NITROGEN 43 mg/dL (7-20); CALCIUM 7.5 mg/dL (8.4-10.2); CARBON DIOXIDE 23 mmol/L (22-30); CHLORIDE 107 mmol/L (98-107); GLUCOSE 106 mg/dL (75-110); POTASSIUM 4.4 mmol/L (3.6-5.0)
--- NOTE | 2019-11-05 08:24 | PDOC CRITICAL CARE PROG REPORT ---
General Date:: 11/05/19 ICU Day:: 15 Ventilator Day:: 15 Hospital Day:: 15 Resuscitation Status: Do Not Resuscitate Events in the past 12 to 24 Hours:: Patient's has agreed to DNR status. Review of systems relevant to events:: Neurological, renal. Reason for ICU Addmission:: Still intubated and not awake enough to protect airway. - Medications: Medications reviewed and adjusted accordingly: Yes Vasopressors:: None Sedation:: None Physical Exam Vital Signs: Temp Pulse Resp BP Pulse Ox 99.7 F 100 15 98/55 L 100 11/05/19 05:05 11/04/19 19:00 11/05/19 06:00 11/05/19 05:59 11/05/19 06:00 Intake & Output 11/04/19 11/05/19 11/06/19 06:59 06:59 06:59 Intake Total 650 500 Output Total 3153 530 Balance -2503 -30 Weight 78.8 kg 75.5 kg Weight/Height Weight 75.5 kg Height 5 ft 4 in General appearance: PRESENT: no acute distress, thin Head exam: PRESENT: atraumatic, normocephalic Eye exam: PRESENT: conjunctiva pink, EOMI, PERRLA. ABSENT: scleral icterus Ear exam: PRESENT: normal external ear exam Mouth exam: PRESENT: moist, tongue midline Respiratory exam: PRESENT: clear to auscultation nuvia. ABSENT: rales, rhonchi, wheezes Cardiovascular exam: PRESENT: RRR. ABSENT: diastolic murmur, rubs, systolic murmur GI/Abdominal exam: PRESENT: normal bowel sounds, soft. ABSENT: distended, guarding, mass, organolmegaly, rebound, tenderness Rectal exam: PRESENT: deferred Gentrourinary exam: PRESENT: indwelling catheter Extremities exam: PRESENT: +1 edema Musculoskeletal exam: PRESENT: normal inspection Neurological exam: PRESENT: other - Today she opens eyes breifly. Nothing spontaneously, Skin exam: PRESENT: dry, intact, warm. ABSENT: cyanosis, rash Tubes/Lines: PRESENT: Endotracheal Tube, Central Line, Dialysis catheter, Nasogastic Tube Laboratory/Radiographs Laboratory Results: 11/05/19 06:30 11/05/19 06:30 11/05/19 11/05/19 06:30 06:30 WBC Cancelled RBC Cancelled Hgb Cancelled Hct Cancelled MCV Cancelled MCH Cancelled MCHC Cancelled RDW Cancelled Plt Count Cancelled Sodium 140.1 Potassium 4.4 Chloride 107 Carbon Dioxide 23 Anion Gap 10 BUN 43 H Creatinine 2.69 H Est GFR ( Amer) 22 L Glucose 106 Calcium 7.5 L Impressions: Chest CT 10/20/19 12:41 IMPRESSION: 1. Mild lower lobe consolidation, likely atelectasis. Addition patchy bilateral areas of ground-glass attenuation which are nonspecific and may represent infectious/inflammatory process, including viral pneumonias. 2. Interlobular septal thickening suggestive of mild interstitial edema. Small pericardial effusion. Head CT 10/30/19 00:00 IMPRESSION: NORMAL BRAIN CT WITHOUT CONTRAST. EVIDENCE OF ACUTE STROKE: NO. Chest X-Ray 10/30/19 06:00 IMPRESSION: Persistent left lower lobe consolidation with trace effusion, similar to prior. New right internal jugular central venous catheter tip at cavoatrial junction. No pneumothorax. Additional lines and tubes as above. All labs, radiographs, diagnostic studies and EKGs were personally reviewed: Yes In addition, reports of radiographic and diagnostic studies were read: Yes Assessment and Plan - Diagnosis (1) Respiratory failure Qualifiers: Chronicity: acute Is this a current diagnosis for this admission?: Yes Plan: Not awake enough to protect airway. (2) COPD (chronic obstructive pulmonary disease) Qualifiers: COPD type: unspecified COPD Qualified Code(s): J44.9 - Chronic obstructive pulmonary disease, unspecified Is this a current diagnosis for this admission?: Yes Plan: No wheezing, not active. (3) End stage chronic kidney disease Is this a current diagnosis for this admission?: Yes Plan: Receiving HD M/W/F. She does not need it today, Not hyerkalemic, acidotic or overloaded. (4) CAD (coronary artery disease) Qualifiers: Coronary Disease-Associated Artery/Lesion type: [place] artery [place] vs. transplanted heart: [place] heart Associated angina: angina presence unspecified Qualified Code(s): I25.10 - Atherosclerotic heart disease of [place] coronary artery without angina pectoris Is this a current diagnosis for this admission?: Yes Plan: Inactive (5) Malnutrition Qualifiers: Malnutrition type: protein-calorie malnutrition Protein-calorie malnutrition severity: moderate Qualified Code(s): E44.0 - Moderate protein- calorie malnutrition Is this a current diagnosis for this admission?: Yes Plan: TF at goal. (6) Endocarditis Qualifiers: Endocarditis type: infective Infective endocarditis organism: bacterial Chronicity: acute Qualified Code(s): I33.0 - Acute and subacute infective endocarditis Is this a current diagnosis for this admission?: Yes Plan: Continue abx (7) Thrombocytopenia Is this a current diagnosis for this admission?: Yes Plan: Resolved. (8) Comfort measures only status Is this a current diagnosis for this admission?: Yes Plan: This was brought up again by Wilner Rashad. senses this is the direction and at least has made her DNR status. (9) Hypothyroid Is this a current diagnosis for this admission?: Yes Plan: No change with synthroid. Plan Summary: Wilner had a discussion with the here last night. He stated again the impression that she will likely not gain. functional recovery. Critical Time Critical Time (minutes): 35 Level of Care: ICU Anticipated discharge: Hospice Anticipated DC Timeframe: Other -: 1. The care of a critical patient is a dynamic process. This note is a personal service representative synopsis but static in nature. The timeframe for treatments given in order is not necessarily the actual time these treatments may have been done. 2. This patient requires critical care secondary to ongoing requirements for therapy not offered or safe outside the critical care environment. Transfer to a lower level of care will result in altered life or limb morbidity and mortality. 3. Multidisciplinary rounds completed. 4. ABCDE bundle addressed.
[2019-11-05 08:41] LABS: HEMATOCRIT 24.5 % (36.0-47.0); HEMOGLOBIN 8.3 g/dL (12.0-15.5); MEAN CORPUSCULAR HEMOGLOBIN 31.3 pg (27.0-33.4); MEAN CORPUSCULAR VOLUME 92 fl (80-97); PLATELET COUNT 100 10^3/uL (150-450); RED BLOOD COUNT 2.67 10^6/uL (3.72-5.28); RED CELL DISTRIBUTION WIDTH 14.9 % (11.5-14.0); WHITE BLOOD COUNT 7.4 10^3/uL (4.0-10.5)
[2019-11-05] MEDS: CALCITRIOL 1 MCG/ML ORAL SOLN 15 ML NG SCH (10:18)
[2019-11-05] MEDS: AMINO AC/PROTEIN HYDR/WHEY PRO 11 GM/45 ML PKT NG SCH ×2 (10:18→17:14)
[2019-11-05] MEDS: ASCORBIC ACID 500 MG TABLET NG SCH (10:18)
[2019-11-05] MEDS: SODIUM BICARBONATE 650 MG TABLET NG SCH ×2 (10:18→22:36)
[2019-11-05] MEDS: POTASSIUM CHLORIDE 20 MEQ PACKET NG SCH ×2 (10:18→22:36)
[2019-11-05] MEDS: ACETAMINOPHEN 325 MG TABLET PO PRN (22:35)
[2019-11-05] MEDS: DIPHENOXYLATE HCL/ATROP SULF 2.5-0.025 MG TABLET PO PRN (22:36)
[2019-11-06] MEDS: INSULIN REG, HUMAN 100 UNIT/ML 3 ML VIAL (PYX) SUBCUT SCH ×4 (03:15→17:53)
[2019-11-06] MEDS ORDERED: ALBUMIN HUMAN 25 GM/100 ML RTUINJ IV SCH (05:00)
[2019-11-06] MEDS ORDERED: HEPARIN SOD (PORCINE) 1,000 UNIT/ML 10 ML VIAL IV PRN (05:00)
[2019-11-06] MEDS ORDERED: NORMAL SALINE 1000 ML 1,000 ML IV PRN (05:00)
[2019-11-06] MEDS ORDERED: EPOETIN ALFA-EPBX 30,000 UNIT in SYRINGE, DISPOSABLE, 1 EACH IV PRN (05:00)
[2019-11-06] MEDS: PANTOPRAZOLE SODIUM 40 MG PACKET.DR NG SCH (06:31)
[2019-11-06] MEDS: LEVOTHYROXINE SODIUM 0.15 MG TABLET PO SCH (06:32)
[2019-11-06 06:37] LABS: HEMATOCRIT 24.1 % (36.0-47.0); HEMOGLOBIN 8.1 g/dL (12.0-15.5); MEAN CORPUSCULAR HEMOGLOBIN 31.6 pg (27.0-33.4); MEAN CORPUSCULAR HGB CONC 33.6 g/dL (32.0-36.0); MEAN CORPUSCULAR VOLUME 94 fl (80-97); PLATELET COUNT 111 10^3/uL (150-450); RED BLOOD COUNT 2.57 10^6/uL (3.72-5.28); RED CELL DISTRIBUTION WIDTH 15.3 % (11.5-14.0); WHITE BLOOD COUNT 8.8 10^3/uL (4.0-10.5)
[2019-11-06 06:51] LABS: ANION GAP 9 (5-19); BLOOD UREA NITROGEN 51 mg/dL (7-20); CALCIUM 7.3 mg/dL (8.4-10.2); CARBON DIOXIDE 22 mmol/L (22-30); CHLORIDE 110 mmol/L (98-107); GLUCOSE 106 mg/dL (75-110); POTASSIUM 5.1 mmol/L (3.6-5.0)
[2019-11-06 06:55] LABS: VANCOMYCIN,TROUGH 19.5 ug/mL (5.0-20.0)
[2019-11-06 07:00] LABS: ABSOLUTE LYMPHOCYTES# (MANUAL) 1.1 10^3/uL (0.5-4.7); ABSOLUTE MONOCYTES # (MANUAL) 0.5 10^3/uL (0.1-1.4); BAND NEUTROPHILS % (MANUAL) 3 % (3-5); BASOPHILS % (MANUAL) 0 % (0-2); EOSINOPHILS % (MANUAL) 1 % (0-6); LYMPHOCYTES % (MANUAL) 13 % (13-45); MONOCYTES % (MANUAL) 6 % (3-13); SEGMENTED NEUTROPHILS % (MAN) 77 % (42-78); TOTAL CELLS COUNTED 100
[2019-11-06 07:01] LABS: ANISOCYTOSIS 1+; PLATELET COMMENT DECREASED; TOXIC GRANULATION SLIGHT; TOXIC VACUOLATION PRESENT
[2019-11-06] MEDS ORDERED: ALBUMIN HUMAN 25 GM/100 ML RTUINJ IV PRN (08:32)
[2019-11-06] MEDS: AMINO AC/PROTEIN HYDR/WHEY PRO 11 GM/45 ML PKT NG SCH ×2 (09:44→17:41)
[2019-11-06] MEDS: POTASSIUM CHLORIDE 20 MEQ PACKET NG SCH ×2 (09:44→21:22)
[2019-11-06] MEDS: ASCORBIC ACID 500 MG TABLET NG SCH (09:44)
[2019-11-06] MEDS: SODIUM BICARBONATE 650 MG TABLET NG SCH ×2 (09:44→21:23)
--- NOTE | 2019-11-06 11:24 | PDOC PROGRESS REPORT ---
Subjective Progress Note for:: 11/06/19 Reason For Visit: Patient remains in the ICU, intubated and sedated and critically ill. Currently seen while undergoing dialysis. Blood pressure is rather tenuous. The patient is also on IV vancomycin for MRSA endocarditis. Patient was discussed with the treating nurse as well as with automotive general manager. Labs and medications were reviewed. Physical Exam Vital Signs: Temp Pulse Resp BP Pulse Ox 98.4 F 116 H 21 H 97/83 L 99 11/06/19 10:00 11/06/19 10:00 11/06/19 10:00 11/06/19 10:00 11/06/19 10:00 Intake & Output 11/05/19 11/06/19 11/07/19 06:59 06:59 06:59 Intake Total 268 283 0866 Output Total 719 63 8035 Balance -30 630 -2045 Weight 75.5 kg 73.8 kg Exam: Intubated and sedated.Looks extremely critical with rather agonal breathing. Respiratory exam: PRESENT: clear to auscultation nuvia. ABSENT: crackles Cardiovascular exam: PRESENT: +S1, +S2 GI/Abdominal exam: PRESENT: normal bowel sounds, soft. ABSENT: organomegaly, tenderness Extremities exam: PRESENT: pedal edema Results Laboratory Results: 11/06/19 06:15 11/06/19 06:15 11/06/19 11/06/19 06:15 06:15 WBC 8.8 RBC 2.57 L Hgb 8.1 L Hct 24.1 L MCV 94 MCH 31.6 MCHC 33.6 RDW 15.3 H Plt Count 111 L Seg Neutrophils % Not Reportable Sodium 140.5 Potassium 5.1 H Chloride 110 H Carbon Dioxide 22 Anion Gap 9 BUN 51 H Creatinine 3.45 H Est GFR ( Amer) 16 L Glucose 106 Calcium 7.3 L Albumin 2.0 L Impressions: Chest CT 10/20/19 12:41 IMPRESSION: 1. Mild lower lobe consolidation, likely atelectasis. Addition patchy bilateral areas of ground-glass attenuation which are nonspecific and may represent infectious/inflammatory process, including viral pneumonias. 2. Interlobular septal thickening suggestive of mild interstitial edema. Small pericardial effusion. Head CT 10/30/19 00:00 IMPRESSION: NORMAL BRAIN CT WITHOUT CONTRAST. EVIDENCE OF ACUTE STROKE: NO. Chest X-Ray 08/31/20 06:00 IMPRESSION: Persistent left lower lobe consolidation with trace effusion, similar to prior. New right internal jugular central venous catheter tip at cavoatrial junction. No pneumothorax. Additional lines and tubes as above. Assessment & Plan - Diagnosis (1) ESRD on hemodialysis Is this a current diagnosis for this admission?: Yes Plan: Patient currently on dialysis. Blood pressure tenuous. Plan to remove as much of fluid as allowed which I think is going to be less than 2 L. Labs and medications were reviewed. TEGOS for cath lock. Dialysis orders were reviewed with the treating dialysis nurse. (2) Septic shock Is this a current diagnosis for this admission?: Yes Plan: Currently off pressors and antibiotics. Patient growing MRSA in blood and in sputum. Patient critically ill. Monitor. (3) Type 2 diabetes mellitus Qualifiers: Diabetes mellitus assisted insulin use: unspecified local intermodal truck driver insulin use status Diabetes mellitus complication status: with kidney complications Diabetes mellitus complication detail: with nephropathy Qualified Code(s): E11.21 - Type 2 diabetes mellitus with diabetic nephropathy Is this a current diagnosis for this admission?: Yes Plan: Being managed by automotive general manager. (4) CVA (cerebral vascular accident) Qualifiers: CVA mechanism: unspecified Qualified Code(s): I63.9 - Cerebral infarction, unspecified Plan: History of. (5) Hyponatremia Plan: Now stable. Monitor. (6) Hypothyroidism Qualifiers: Hypothyroidism type: acquired Qualified Code(s): E03.9 - Hypothyroidism, unspecified Is this a current diagnosis for this admission?: Yes Plan: On replacements. (7) Hypocalcemia Is this a current diagnosis for this admission?: Yes Plan: Corrected calcium now normal. (8) Metabolic acidosis Plan: Responding to dialysis. Monitor. (9) Bipolar disorder Qualifiers: Active/Remission status: currently active Plan: Status quo. (10) Thrombocytopenia Is this a current diagnosis for this admission?: Yes Plan: Monitor. Being followed by automotive general manager. Will hold off on heparin for her catheter lock and we do are not using any heparin for dialysis. (11) Pneumonia Qualifiers: Pneumonia type: due to unspecified organism Laterality: bilateral Lung location: lower lobe of lung Qualified Code(s): J18.9 - Pneumonia, unspecified organism Is this a current diagnosis for this admission?: Yes Plan: Viral/bacterial. Sputum growing MRSA. Being managed by automotive general manager. (12) Respiratory failure Qualifiers: Chronicity: acute Is this a current diagnosis for this admission?: Yes Plan: Intubated and sedated.
[2019-11-06] MEDS: CALCITRIOL 1 MCG/ML ORAL SOLN 15 ML NG SCH (12:53)
[2019-11-06] MEDS: ALBUMIN HUMAN 12.5 GM/50 ML RTUINJ IV SCH ×7 (14:46→22:14)
[2019-11-06] MEDS: VANCOMYCIN HCL 750 MG in DEXTROSE 5%-WATER 250 ML IV SCH (17:40)
--- NOTE | 2019-11-06 17:47 | PDOC CRITICAL CARE PROG REPORT ---
General Date:: 11/06/19 ICU Day:: 17 Ventilator Day:: 17 Hospital Day:: 17 Resuscitation Status: Do Not Resuscitate Events in the past 12 to 24 Hours:: This 64-year-old female presented to the emergency department on 10/21/2019 with complaints of fever and shortness of breath. He was initially admitted by the hospitalist service but then was transferred to the ICU after becoming obtunded and demonstrating agonal breathing. She was admitted with a working diagnosis of septic shock. She was intubated due to altered mental status. 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 11/05: Remains intubated. Off sedation. Unarousable. On hemodialysis this morning. Review of systems relevant to events:: Neurologic: Altered mental status Respiratory: Acute hypoxemic respiratory failure Cardiovascular: Mitral valve vegetation, endocarditis Renal: End-stage renal disease on hemodialysis Reason for ICU Addmission:: Still intubated and not awake enough to protect airway. - Medications: Medications reviewed and adjusted accordingly: Yes Physical Exam Vital Signs: Temp Pulse Resp BP Pulse Ox 98.4 F 116 H 21 H 97/83 L 99 11/06/19 10:00 11/06/19 10:00 11/06/19 10:00 11/06/19 10:00 11/06/19 10:00 Intake & Output 11/05/19 11/06/19 11/07/19 06:59 06:59 06:59 Intake Total 904 700 2374 Output Total 259 63 6944 Balance -30 630 -2045 Weight 75.5 kg 73.8 kg Weight/Height Weight 73.8 kg Height 1.63 m General appearance: PRESENT: no acute distress, well-developed, well-nourished Head exam: PRESENT: atraumatic, normocephalic Eye exam: PRESENT: conjunctiva pink, EOMI, PERRLA. ABSENT: scleral icterus Mouth exam: PRESENT: moist, tongue midline Respiratory exam: PRESENT: decreased breath sounds. ABSENT: rales, rhonchi, wheezes Cardiovascular exam: PRESENT: RRR. ABSENT: diastolic murmur, rubs, systolic murmur Pulses: PRESENT: normal dorsalis pedis pul GI/Abdominal exam: PRESENT: normal bowel sounds, soft. ABSENT: distended, guarding, mass, organolmegaly, rebound, tenderness Gentrourinary exam: PRESENT: indwelling catheter Extremities exam: PRESENT: full ROM. ABSENT: calf tenderness, clubbing, pedal edema Musculoskeletal exam: PRESENT: normal inspection. ABSENT: deformity Neurological exam: PRESENT: altered, CN II-XII grossly intact. ABSENT: reflexes normal - Left Babinski Psychiatric exam: ABSENT: agitated, anxious Skin exam: PRESENT: dry, intact, warm. ABSENT: cyanosis, rash Tubes/Lines: PRESENT: Endotracheal Tube, Central Line - Left subclavian, Dialysis catheter - Right IJ, Other - Orogastric Laboratory/Radiographs Laboratory Results: 11/06/19 06:15 11/06/19 06:15 11/06/19 11/06/19 06:15 06:15 WBC 8.8 RBC 2.57 L Hgb 8.1 L Hct 24.1 L MCV 94 MCH 31.6 MCHC 33.6 RDW 15.3 H Plt Count 111 L Seg Neutrophils % Not Reportable Sodium 140.5 Potassium 5.1 H Chloride 110 H Carbon Dioxide 22 Anion Gap 9 BUN 51 H Creatinine 3.45 H Est GFR ( Amer) 16 L Glucose 106 Calcium 7.3 L Albumin 2.0 L Impressions: Chest CT 10/20/19 12:41 IMPRESSION: 1. Mild lower lobe consolidation, likely atelectasis. Addition patchy bilateral areas of ground-glass attenuation which are nonspecific and may represent infectious/inflammatory process, including viral pneumonias. 2. Interlobular septal thickening suggestive of mild interstitial edema. Small pericardial effusion. Head CT 10/30/19 00:00 IMPRESSION: NORMAL BRAIN CT WITHOUT CONTRAST. EVIDENCE OF ACUTE STROKE: NO. Chest X-Ray 10/30/19 06:00 IMPRESSION: Persistent left lower lobe consolidation with trace effusion, similar to prior. New right internal jugular central venous catheter tip at cavoatrial junction. No pneumothorax. Additional lines and tubes as above. All labs, radiographs, diagnostic studies and EKGs were personally reviewed: Yes In addition, reports of radiographic and diagnostic studies were read: Yes Assessment and Plan - Diagnosis (1) Acute hypoxemic respiratory failure Is this a current diagnosis for this admission?: Yes Plan: Although her respiratory status has improved in terms of gas exchange, her mental status is hindering efforts to liberate from mechanical ventilatory support. Head CT (10/29) showed no acute intracranial process. (2) Endocarditis of mitral valve Is this a current diagnosis for this admission?: Yes (3) MRSA bacteremia Is this a current diagnosis for this admission?: Yes Plan: Continue vancomycin. Will discuss with pharmacy, vancomycin targets: Peak 40, trough 20. (4) ESRD on hemodialysis Is this a current diagnosis for this admission?: Yes Plan: Dialysis per nephrology. Right IJ temporary hemodialysis catheter placed 10/25/2019. (5) Hypocalcemia Is this a current diagnosis for this admission?: Yes Plan: Check ionized calcium. Check prealbumin. (6) Thrombocytopenia Is this a current diagnosis for this admission?: Yes Plan: Monitor platelets. (7) Normocytic anemia Is this a current diagnosis for this admission?: Yes Critical Time Critical Time (minutes): 60 Level of Care: ICU -: 1. The care of a critical patient is a dynamic process. This note is a cash application representative synopsis but static in nature. The timeframe for treatments given in order is not necessarily the actual time these treatments may have been done. 2. This patient requires critical care secondary to ongoing requirements for therapy not offered or safe outside the critical care environment. Transfer to a lower level of care will result in altered life or limb morbidity and mortality. 3. Multidisciplinary rounds completed. 4. ABCDE bundle addressed.
[2019-11-06] MEDS: DIPHENOXYLATE HCL/ATROP SULF 2.5-0.025 MG TABLET PO PRN (19:05)
[2019-11-07] MEDS: INSULIN REG, HUMAN 100 UNIT/ML 3 ML VIAL (PYX) SUBCUT SCH ×5 (00:02→23:54)
[2019-11-07] MEDS: ALBUMIN HUMAN 12.5 GM/50 ML RTUINJ IV SCH ×5 (00:13→07:41)
[2019-11-07] MEDS: DIPHENOXYLATE HCL/ATROP SULF 2.5-0.025 MG TABLET PO PRN ×2 (00:14→17:43)
[2019-11-07] MEDS ORDERED: FENTANYL CITRATE INJ/PF 100 MCG/2 ML AMPUL IV ONE (03:11)
[2019-11-07] MEDS ORDERED: FENTANYL CITRATE INJ/PF 100 MCG/2 ML AMPUL ONE (03:12)
[2019-11-07] MEDS: ACETAMINOPHEN 325 MG TABLET PO PRN (03:36)
[2019-11-07] MEDS ORDERED: METOPROLOL TARTRATE PF/INJ 5 MG/5 ML SDV IV ONE ×2 (03:47→03:48)
[2019-11-07 04:19] LABS: ARTERIAL BLOOD BASE EXCESS -1.9 mmol/L; ARTERIAL BLOOD H2CO3 1.26 mmol/L (1.05-1.35); ARTERIAL BLOOD HCO3 23.4 mmol/L (20-24); ARTERIAL BLOOD O2 SATURATION 91.8 % (94-98); ARTERIAL BLOOD PCO2 41.9 mmHg (35-45); ARTERIAL BLOOD PH 7.36 (7.35-7.45); ARTERIAL BLOOD TOTAL CO2 24.6 mmol/L (21-25)
[2019-11-07 04:20] LABS: ARTERIAL BLOOD FIO2 40%
[2019-11-07] MEDS ORDERED: ALBUMIN HUMAN 50.0 GM/200 ML RTUINJ IV ONE (05:26)
[2019-11-07 05:31] LABS: HEMATOCRIT 19.3 % (36.0-47.0); MEAN CORPUSCULAR HEMOGLOBIN 31.4 pg (27.0-33.4); MEAN CORPUSCULAR VOLUME 93 fl (80-97); RED BLOOD COUNT 2.09 10^6/uL (3.72-5.28); RED CELL DISTRIBUTION WIDTH 15.7 % (11.5-14.0); WHITE BLOOD COUNT 7.5 10^3/uL (4.0-10.5)
[2019-11-07] MEDS: PANTOPRAZOLE SODIUM 40 MG PACKET.DR NG SCH (05:35)
[2019-11-07] MEDS: LEVOTHYROXINE SODIUM 0.15 MG TABLET PO SCH (05:35)
[2019-11-07 05:52] LABS: ANION GAP 8 (5-19); BLOOD UREA NITROGEN 33 mg/dL (7-20); CARBON DIOXIDE 26 mmol/L (22-30); CHLORIDE 104 mmol/L (98-107); GLUCOSE 141 mg/dL (75-110); PHOSPHORUS 2.6 mg/dL (2.5-4.5); POTASSIUM 4.3 mmol/L (3.6-5.0)
[2019-11-07 06:27] LABS: PREALBUMIN 7.2 mg/dL (17.6-36.0)
[2019-11-07 06:44] LABS: PLATELET COUNT 94 10^3/uL (150-450)
[2019-11-07 06:50] LABS: ABSOLUTE LYMPHOCYTES# (MANUAL) 1.1 10^3/uL (0.5-4.7); ABSOLUTE MONOCYTES # (MANUAL) 0.3 10^3/uL (0.1-1.4); BAND NEUTROPHILS % (MANUAL) 5 % (3-5); BASOPHILS % (MANUAL) 0 % (0-2); EOSINOPHILS % (MANUAL) 0 % (0-6); LYMPHOCYTES % (MANUAL) 14 % (13-45); MONOCYTES % (MANUAL) 4 % (3-13); SEGMENTED NEUTROPHILS % (MAN) 77 % (42-78); TOTAL CELLS COUNTED 100
[2019-11-07 06:57] LABS: ANISOCYTOSIS SLIGHT; OVALOCYTES 1+; PLATELET COMMENT DECREASED; POIKILOCYTOSIS SLIGHT; TEAR DROP CELLS SLIGHT; TOXIC GRANULATION 1+
[2019-11-07 06:58] LABS: HEMOGLOBIN 6.6 g/dL (12.0-15.5)
[2019-11-07] MEDS ORDERED: NORMAL SALINE 250 ML IV PRN ×2 (07:33)
[2019-11-07] MEDS ORDERED: MIDAZOLAM 2 MG/2 ML INJ ONE ×2 (08:12→15:51)
--- NOTE | 2019-11-07 09:32 | RADIOLOGY REPORT (SQ) ---
EXAM DESCRIPTION: CHEST SINGLE VIEW IMAGES COMPLETED DATE/TIME: 11/07/2019 6:55 am REASON FOR STUDY: ETT tube COMPARISON: 10/30/2019 NUMBER OF VIEWS: One view. TECHNIQUE: Single frontal radiographic image of the chest acquired. LIMITATIONS: None. FINDINGS: LUNGS AND PLEURA: Improved aeration in both lungs with residual airspace disease in the le ft upper lobe known to lesser degree the right lower lobe. No pneumothorax. MEDIASTINUM AND HEART: Stable heart size and mediastinal structures. SUPPORT DEVICES: Appropriate location without change. BONY STRUCTURES: No acute findings. HARDWARE: None. OTHER: No other significant finding. IMPRESSION: Interval improvement. No pneumothorax. Reading location - IP/workstation name: [email or web address]
[2019-11-07] MEDS: MAGNESIUM SULFATE/D5W 1 GM/100 ML RTUPB IV SCH ×3 (09:35→12:42)
[2019-11-07] MEDS: ASCORBIC ACID 500 MG TABLET NG SCH (09:36)
[2019-11-07] MEDS: AMINO AC/PROTEIN HYDR/WHEY PRO 11 GM/45 ML PKT NG SCH ×2 (09:36→17:23)
[2019-11-07] MEDS: SODIUM BICARBONATE 650 MG TABLET NG SCH ×2 (09:36→21:23)
[2019-11-07] MEDS: CALCITRIOL 1 MCG/ML ORAL SOLN 15 ML NG SCH (09:36)
[2019-11-07] MEDS: POTASSIUM CHLORIDE 20 MEQ PACKET NG SCH ×2 (09:36→21:23)
[2019-11-07] MEDS ORDERED: MIDAZOLAM 2 MG/2 ML INJ IV ONE ×2 (12:30→16:15)
[2019-11-07] MEDS: HEPARIN SOD (PORCINE) 5,000 UNIT/ML 1 ML VIAL SUBCUT SCH ×2 (14:59→21:23)
--- NOTE | 2019-11-07 17:36 | PDOC CRITICAL CARE PROG REPORT ---
General Date:: 11/07/19 ICU Day:: 18 Ventilator Day:: 18 Hospital Day:: 18 Resuscitation Status: Do Not Resuscitate Events in the past 12 to 24 Hours:: This 64-year-old female presented to the emergency department on 10/21/2019 with complaints of fever and shortness of breath. He was initially admitted by the hospitalist service but then was transferred to the ICU after becoming obtunded and demonstrating agonal breathing. She was admitted with a working diagnosis of septic shock. She was intubated due to altered mental status. 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 11/05: Remains intubated. Off sedation. Unarousable. On hemodialysis this morning. 11/06: Remains intubated. Off sedation. Opens eyes spontaneously. Does not follow commands. Blood cultures show no growth to date (x72 hours). This is the first set of cultures that have not immediately been positive for MRSA. On vancomycin. Had a bout of hypotension overnight, believed to be secondary to beta-aston administration. This has resolved. Hemoglobin this morning 6.6. Needs a 1.5. Review of systems relevant to events:: Neurologic: Altered mental status Respiratory: Acute hypoxemic respiratory failure Cardiovascular: Mitral valve vegetation, endocarditis Renal: End-stage renal disease on hemodialysis Hematologic: Anemia Reason for ICU Addmission:: Still intubated and not awake enough to protect airway. - Medications: Medications reviewed and adjusted accordingly: Yes Physical Exam Vital Signs: Temp Pulse Resp BP Pulse Ox 99.1 F 93 26 H 100/78 100 11/07/19 08:00 11/07/19 08:00 11/07/19 08:00 11/07/19 08:00 11/07/19 08:00 Intake & Output 11/06/19 11/07/19 11/08/19 06:59 06:59 06:59 Intake Total 670 2152 83 Output Total 40 3045 0 Balance 630 -893 83 Weight 73.8 kg 72.1 kg Weight/Height Weight 72.1 kg Height 1.63 m General appearance: PRESENT: no acute distress, well-developed, well-nourished Head exam: PRESENT: atraumatic, normocephalic Eye exam: PRESENT: conjunctiva pink, EOMI, PERRLA. ABSENT: scleral icterus Mouth exam: PRESENT: moist, tongue midline Neck exam: ABSENT: carotid bruit, JVD, lymphadenopathy, thyromegaly Respiratory exam: PRESENT: decreased breath sounds, rales, rhonchi Cardiovascular exam: PRESENT: RRR. ABSENT: diastolic murmur, rubs, systolic murmur Pulses: PRESENT: normal dorsalis pedis pul GI/Abdominal exam: PRESENT: normal bowel sounds, soft. ABSENT: distended, guarding, mass, organolmegaly, rebound, tenderness Gentrourinary exam: PRESENT: indwelling catheter Extremities exam: PRESENT: pedal edema, +2 edema. ABSENT: calf tenderness, clubbing Musculoskeletal exam: PRESENT: normal inspection. ABSENT: deformity Neurological exam: PRESENT: awake, CN II-XII grossly intact. ABSENT: reflexes normal - Left Babinski Psychiatric exam: ABSENT: agitated, anxious Skin exam: PRESENT: dry, intact, warm. ABSENT: cyanosis, rash Tubes/Lines: PRESENT: Endotracheal Tube, Central Line - Left subclavian, Dial ysis catheter - Right IJ, Other - Orogastric Laboratory/Radiographs Laboratory Results: 11/07/19 05:02 11/07/19 05:02 11/07/19 11/07/19 11/07/19 04:10 05:02 05:02 WBC 7.5 RBC 2.09 L Hgb 6.6 L Hct 19.3 L MCV 93 MCH 31.4 MCHC 34.0 RDW 15.7 H Plt Count 94 L Seg Neutrophils % Not Reportable Carbonic Acid 1.26 HCO3/H2CO3 Ratio 18:1 ABG pH 7.36 ABG pCO2 41.9 ABG pO2 64.0 L ABG HCO3 23.4 ABG O2 Saturation 91.8 L ABG Base Excess -1.9 FiO2 40% Sodium 138.3 Potassium 4.3 Chloride 104 Carbon Dioxide 26 Anion Gap 8 BUN 33 H Creatinine 2.24 H Est GFR ( Amer) 27 L Glucose 141 H Calcium 8.0 L Phosphorus 2.6 Magnesium 1.5 L Prealbumin 7.2 L Blood Type Antibody Screen 11/07/19 08:17 WBC RBC Hgb Hct MCV MCH MCHC RDW Plt Count Seg Neutrophils % Carbonic Acid HCO3/H2CO3 Ratio ABG pH ABG pCO2 ABG pO2 ABG HCO3 ABG O2 Saturation ABG Base Excess FiO2 Sodium Potassium Chloride Carbon Dioxide Anion Gap BUN Creatinine Est GFR ( Amer) Glucose Calcium Phosphorus Magnesium Prealbumin Blood Type O POSITIVE Antibody Screen NEGATIVE Impressions: Chest CT 10/20/19 12:41 IMPRESSION: 1. Mild lower lobe consolidation, likely atelectasis. Addition patchy bilateral areas of ground-glass attenuation which are nonspecific and may represent infectious/inflammatory process, including viral pneumonias. 2. Interlobular septal thickening suggestive of mild interstitial edema. Small pericardial effusion. Head CT 10/30/19 00:00 IMPRESSION: NORMAL BRAIN CT WITHOUT CONTRAST. EVIDENCE OF ACUTE STROKE: NO. All labs, radiographs, diagnostic studies and EKGs were personally reviewed: Yes In addition, reports of radiographic and diagnostic studies were read: Yes Assessment and Plan - Diagnosis (1) Acute hypoxemic respiratory failure Is this a current diagnosis for this admission?: Yes Plan: Although her respiratory status has improved in terms of gas exchange, her mental status is hindering efforts to liberate from mechanical ventilatory support. Head CT (10/29) showed no acute intracranial process. (2) Normocytic anemia Is this a current diagnosis for this admission?: Yes Plan: -Screen. Transfuse 2 units PRBC. (3) Endocarditis of mitral valve Is this a current diagnosis for this admission?: Yes (4) MRSA bacteremia Is this a current diagnosis for this admission?: Yes Plan: Continue vancomycin. Will discuss with pharmacy, vancomycin targets: Peak 40, trough 20. (5) ESRD on hemodialysis Is this a current diagnosis for this admission?: Yes Plan: Dialysis per nephrology. Right IJ temporary hemodialysis catheter placed 10/25/2019. (6) Hypocalcemia Is this a current diagnosis for this admission?: Yes Plan: Improving. Replete calcium. (7) Thrombocytopenia Is this a current diagnosis for this admission?: Yes (8) Hypomagnesemia Is this a current diagnosis for this admission?: Yes Plan: Replete. Critical Time Critical Time (minutes): 45 Level of Care: ICU -: 1. The care of a critical patient is a dynamic process. This note is a in store representative synopsis but static in nature. The timeframe for treatments given in order is not necessarily the actual time these treatments may have been done. 2. This patient requires critical care secondary to ongoing requirements for therapy not offered or safe outside the critical care environment. Transfer to a lower level of care will result in altered life or limb morbidity and mortality. 3. Multidisciplinary rounds completed. 4. ABCDE bundle addressed.
[2019-11-07] MEDS ORDERED: PROPOFOL 1,000 MG/100 ML INFUS..BTL IV ONE (18:42)
[2019-11-07] MEDS ORDERED: PROPOFOL 1,000 MG/100 ML INFUS..BTL IV PRN (19:03)
[2019-11-07 21:50] LABS: HEMATOCRIT 28.8 % (36.0-47.0); MEAN CORPUSCULAR HEMOGLOBIN 30.4 pg (27.0-33.4); MEAN CORPUSCULAR VOLUME 90 fl (80-97); RED BLOOD COUNT 3.22 10^6/uL (3.72-5.28); RED CELL DISTRIBUTION WIDTH 15.9 % (11.5-14.0); WHITE BLOOD COUNT 9.5 10^3/uL (4.0-10.5)
[2019-11-07 22:20] LABS: HEMOGLOBIN 9.8 g/dL (12.0-15.5); PLATELET COUNT 92 10^3/uL (150-450)
[2019-11-08 04:11] LABS: HEMATOCRIT 32.1 % (36.0-47.0); HEMOGLOBIN 10.8 g/dL (12.0-15.5); MEAN CORPUSCULAR HEMOGLOBIN 30.2 pg (27.0-33.4); MEAN CORPUSCULAR HGB CONC 33.5 g/dL (32.0-36.0); MEAN CORPUSCULAR VOLUME 90 fl (80-97); PLATELET COUNT 102 10^3/uL (150-450); RED BLOOD COUNT 3.57 10^6/uL (3.72-5.28); WHITE BLOOD COUNT 13.8 10^3/uL (4.0-10.5)
[2019-11-08 04:23] LABS: ARTERIAL BLOOD BASE EXCESS -4.2 mmol/L; ARTERIAL BLOOD H2CO3 1.19 mmol/L (1.05-1.35); ARTERIAL BLOOD HCO3 21.1 mmol/L (20-24); ARTERIAL BLOOD O2 SATURATION 93.2 % (94-98); ARTERIAL BLOOD PCO2 39.4 mmHg (35-45); ARTERIAL BLOOD PH 7.35 (7.35-7.45); ARTERIAL BLOOD PO2 69.5 mmHg (80-100); ARTERIAL BLOOD TOTAL CO2 22.3 mmol/L (21-25)
[2019-11-08 04:24] LABS: ARTERIAL BLOOD FIO2 40%
[2019-11-08 04:28] LABS: ANION GAP 13 (5-19); BLOOD UREA NITROGEN 45 mg/dL (7-20); CALCIUM 8.4 mg/dL (8.4-10.2); CARBON DIOXIDE 21 mmol/L (22-30); CHLORIDE 104 mmol/L (98-107); GLUCOSE 134 mg/dL (75-110); PHOSPHORUS 2.5 mg/dL (2.5-4.5)
[2019-11-08 04:42] LABS: ABSOLUTE LYMPHOCYTES# (MANUAL) 4.6 10^3/uL (0.5-4.7); ABSOLUTE MONOCYTES # (MANUAL) 0.3 10^3/uL (0.1-1.4); BAND NEUTROPHILS % (MANUAL) 9 % (3-5); BASOPHILS % (MANUAL) 1 % (0-2); EOSINOPHILS % (MANUAL) 1 % (0-6); LYMPHOCYTES % (MANUAL) 31 % (13-45); MONOCYTES % (MANUAL) 2 % (3-13); NUCLEATED RED BLOOD CELLS 2 /100 WBC (0); SEGMENTED NEUTROPHILS % (MAN) 52 % (42-78); TOTAL CELLS COUNTED 100
[2019-11-08 04:45] LABS: TOXIC GRANULATION SLIGHT
[2019-11-08 04:46] LABS: ANISOCYTOSIS 1+; PLATELET COMMENT DECREASED; TOXIC VACUOLATION PRESENT
[2019-11-08 04:48] LABS: MYELOCYTES % (MANUAL) 1 % (0)
[2019-11-08 04:49] LABS: PROMYELOCYTES % (MANUAL) 1 % (0)
[2019-11-08 05:10] LABS: POTASSIUM 5.3 mmol/L (3.6-5.0)
[2019-11-08] MEDS: INSULIN REG, HUMAN 100 UNIT/ML 3 ML VIAL (PYX) SUBCUT SCH ×3 (05:50→18:14)
[2019-11-08] MEDS: PANTOPRAZOLE SODIUM 40 MG PACKET.DR NG SCH (05:54)
[2019-11-08] MEDS: LEVOTHYROXINE SODIUM 0.15 MG TABLET PO SCH (05:54)
[2019-11-08] MEDS: HEPARIN SOD (PORCINE) 5,000 UNIT/ML 1 ML VIAL SUBCUT SCH ×3 (05:54→22:46)
--- NOTE | 2019-11-08 08:31 | RADIOLOGY REPORT (SQ) ---
EXAM DESCRIPTION: CHEST SINGLE VIEW IMAGES COMPLETED DATE/TIME: 11/08/2019 7:02 am REASON FOR STUDY: intubated COMPARISON: AP view of the chest from 11/07/2019. EXAM PARAMETERS: NUMBER OF VIEWS: One view. TECHNIQUE: An AP view of the chest was obtained. RADIATION DOSE: NA LIMITATIONS: None. FINDINGS: LUNGS AND PLEURA: Increased hazy opacity in the inferior aspect of the right hemithorax as sociated with blunting of the lateral costophrenic sulcus. The appearance of the lungs and pleura is otherwise unchanged. MEDIASTINUM AND HILAR STRUCTURES: Stable mediastinal and hilar contours. HEART AND VASCULAR STRUCTURES: Stable cardiac silhouette. BONES: No acute findings. HARDWARE: The tip of the endotracheal tube projects 7.9 cm above the ty. The tip of the left sub clavian vein approach central venous catheter projects within the SVC. The tip of the right IJ hemod ialysis catheter projects within the SVC. The tip of the enteric tube projects within the gastric louise men. There is re- demonstration of surgical clips that project above the thoracic inlet. OTHER: No other finding. IMPRESSION: Increased hazy opacity in the inferior aspect of the right hemithorax associate rib blun ting of the left lateral costophrenic sulcus. The opacity could represent a combination of increased pleural fluid and atelectasis. Otherwise unchanged radiographic appearance of the chest. TECHNICAL DOCUMENTATION: JOB ID: [id number] 2010 [employer]- All Rights Reserved Reading location - IP/workstation name: [email or web address]
[2019-11-08 11:23] LABS: PATH REVIEW PATHOLOGIST REVIEWED
[2019-11-08] MEDS: SODIUM BICARBONATE 650 MG TABLET NG SCH ×2 (11:33→22:45)
[2019-11-08] MEDS: AMINO AC/PROTEIN HYDR/WHEY PRO 11 GM/45 ML PKT NG SCH ×2 (11:33→18:13)
[2019-11-08] MEDS: ASCORBIC ACID 500 MG TABLET NG SCH (11:34)
[2019-11-08] MEDS: POTASSIUM CHLORIDE 20 MEQ PACKET NG SCH ×3 (11:34→22:58)
[2019-11-08] MEDS: CALCITRIOL 1 MCG/ML ORAL SOLN 15 ML NG SCH (11:45)
[2019-11-08] MEDS: DIPHENOXYLATE HCL/ATROP SULF 2.5-0.025 MG TABLET PO PRN ×2 (11:54→18:26)
--- NOTE | 2019-11-08 12:36 | RADIOLOGY REPORT (SQ) ---
EXAM DESCRIPTION: CHEST SINGLE VIEW IMAGES COMPLETED DATE/TIME: 11/08/2019 12:03 pm REASON FOR STUDY: ET tube position COMPARISON: 11/08/2019 EXAM PARAMETERS: NUMBER OF VIEWS: One view. TECHNIQUE: Single frontal radiographic view of the chest acquired. RADIATION DOSE: NA LIMITATIONS: None. FINDINGS: LUNGS AND PLEURA: There is patchy opacification in the left upper lobe. Cannot exclude mi ld pulmonary edema elsewhere. MEDIASTINUM AND HILAR STRUCTURES: No masses. Contour normal. HEART AND VASCULAR STRUCTURES: Heart normal in size. Normal vasculature. BONES: No acute findings. HARDWARE: The tip of the endotracheal tube appears to be 5 cm above the ty. OTHER: No other significant finding. IMPRESSION: Cannot exclude left upper lobe pneumonia. Cannot exclude mild pulmonary edema. Endotra cheal tube as described. TECHNICAL DOCUMENTATION: JOB ID: [id number] 2010 [employer]- All Rights Reserved Reading location - IP/workstation name: [email or web address]
[2019-11-08] MEDS: METRONIDAZOLE 500 MG/NS RTU 500 MG/100 ML RTUPB IV SCH ×2 (13:57→22:45)
--- NOTE | 2019-11-08 16:29 | PDOC PROGRESS REPORT ---
Subjective Progress Note for:: 11/08/19 Reason For Visit: Patient seen on dialysis in the ICU today. Undergoing dialysis without any issues. Labs and medications were reviewed. Discussions were done with the treating nurse and the treating dialysis nurse. Dialysis orders were reviewed with treating dialysis nurse. Physical Exam Vital Signs: Temp Pulse Resp BP Pulse Ox 99.9 F 94 24 H 99/54 L 100 11/08/19 10:00 11/08/19 14:00 11/08/19 15:02 11/08/19 15:02 11/08/19 15:02 Intake & Output 11/07/19 11/08/19 11/09/19 06:59 06:59 06:59 Intake Total 2152 1423 1036 Output Total 3045 30 1870 Balance -893 1393 -834 Weight 72.1 kg 74 kg Exam: Remains intubated but less sedated. Respiratory exam: PRESENT: clear to auscultation nuvia. ABSENT: crackles Cardiovascular exam: PRESENT: +S1, +S2 GI/Abdominal exam: PRESENT: normal bowel sounds, soft. ABSENT: organomegaly, tenderness Results Laboratory Results: 11/08/19 03:50 11/08/19 03:50 11/07/19 11/08/19 11/08/19 21:35 03:50 03:50 WBC 9.5 13.8 H RBC 3.22 L 3.57 L Hgb 9.8 L D 10.8 L Hct 28.8 L 32.1 L MCV 90 90 MCH 30.4 30.2 MCHC 34.0 33.5 RDW 15.9 H 16.0 H Plt Count 92 L 102 L Seg Neutrophils % Not Reportable Carbonic Acid HCO3/H2CO3 Ratio ABG pH ABG pCO2 ABG pO2 ABG HCO3 ABG O2 Saturation ABG Base Excess FiO2 Sodium 137.9 Potassium 5.3 H D Chloride 104 Carbon Dioxide 21 L Anion Gap 13 BUN 45 H Creatinine 2.59 H Est GFR ( Amer) 23 L Glucose 134 H Calcium 8.4 Phosphorus 2.5 Magnesium 2.3 11/08/19 04:08 WBC RBC Hgb Hct MCV MCH MCHC RDW Plt Count Seg Neutrophils % Carbonic Acid 1.19 HCO3/H2CO3 Ratio 17:1 ABG pH 7.35 ABG pCO2 39.4 ABG pO2 69.5 L ABG HCO3 21.1 ABG O2 Saturation 93.2 L ABG Base Excess -4.2 FiO2 40% Sodium Potassium Chloride Carbon Dioxide Anion Gap BUN Creatinine Est GFR ( Amer) Glucose Calcium Phosphorus Magnesium 11/03/19 11:14 Blood Blood Culture - Final NO GROWTH IN 5 DAYS 11/03/19 11:00 Blood Blood Culture - Final NO GROWTH IN 5 DAYS 10/24/19 13:45 Bronchial Washings Legionella Culture - Final Impressions: Chest CT 10/20/19 12:41 IMPRESSION: 1. Mild lower lobe consolidation, likely atelectasis. Addition patchy bilateral areas of ground-glass attenuation which are nonspecific and may represent infectious/inflammatory process, including viral pneumonias. 2. Interlobular septal thickening suggestive of mild interstitial edema. Small pericardial effusion. Head CT 10/30/19 00:00 IMPRESSION: NORMAL BRAIN CT WITHOUT CONTRAST. EVIDENCE OF ACUTE STROKE: NO. Chest X-Ray 11/08/19 09:04 IMPRESSION: Cannot exclude left upper lobe pneumonia. Cannot exclude mild pulmonary edema. Endotracheal tube as described. Assessment & Plan - Diagnosis (1) Endocarditis of mitral valve Is this a current diagnosis for this admission?: Yes Plan: On appropriate antibiotics for (2) ESRD on hemodialysis Is this a current diagnosis for this admission?: Yes Plan: Patient currently on dialysis. Plan to remove 2-3 L. Labs and medications were reviewed. TEGOS for cath lock. Dialysis orders were reviewed with the treating dialysis nurse. (3) Septic shock Is this a current diagnosis for this admission?: Yes Plan: Currently off pressors and on antibiotics. Patient growing MRSA in blood and in sputum. Patient critically ill. Monitor. (4) Type 2 diabetes mellitus Qualifiers: Diabetes mellitus rat exterminator insulin use: unspecified rat exterminator insulin use status Diabetes mellitus complication status: with kidney complications Diabetes mellitus complication detail: with nephropathy Qualified Code(s): E11.21 - Type 2 diabetes mellitus with diabetic nephropathy Is this a current diagnosis for this admission?: Yes Plan: Being managed by tool and die repair. (5) CVA (cerebral vascular accident) Qualifiers: CVA mechanism: unspecified Qualified Code(s): I63.9 - Cerebral infarction, unspecified Plan: History of. (6) Hyponatremia Plan: Now stable. Monitor. (7) Hypocalcemia Is this a current diagnosis for this admission?: Yes Plan: Corrected calcium now normal. (8) Metabolic acidosis Plan: Responding to dialysis. Monitor. (9) Thrombocytopenia Is this a current diagnosis for this admission?: Yes Plan: Monitor. Being followed by tool and die repair. Will hold off on heparin for her lito ter lock and we do are not using any heparin for dialysis. (10) Pneumonia Qualifiers: Pneumonia type: due to unspecified organism Laterality: bilateral Lung location: lower lobe of lung Qualified Code(s): J18.9 - Pneumonia, unspecified organism Is this a current diagnosis for this admission?: Yes Plan: Viral/bacterial. Sputum growing MRSA. Being managed by tool and die repair. (11) Respiratory failure Qualifiers: Chronicity: acute Is this a current diagnosis for this admission?: Yes Plan: Intubated and sedated.
[2019-11-08] MEDS: VANCOMYCIN HCL 750 MG in DEXTROSE 5%-WATER 250 ML IV SCH (18:13)
--- NOTE | 2019-11-08 19:49 | PDOC CRITICAL CARE PROG REPORT ---
General Date:: 11/08/19 ICU Day:: 19 Ventilator Day:: 19 Hospital Day:: 19 Resuscitation Status: Do Not Resuscitate Events in the past 12 to 24 Hours:: This 64-year-old female presented to the emergency department on 10/21/2019 with complaints of fever and shortness of breath. He was initially admitted by the hospitalist service but then was transferred to the ICU after becoming obtunded and demonstrating agonal breathing. She was admitted with a working diagnosis of septic shock. She was intubated due to altered mental status. 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 11/05: Remains intubated. Off sedation. Unarousable. On hemodialysis this morning. 11/06: Remains intubated. Off sedation. Opens eyes spontaneously. Does not follow commands. Blood cultures show no growth to date (x72 hours). This is the first set of cultures that have not immediately been positive for MRSA. On vancomycin. Had a bout of hypotension overnight, believed to be secondary to beta-aston administration. This has resolved. Hemoglobin this morning 6.6. Needs a 1.5. 11/07: Continues to have loose stools. Fecal management system is having difficulty staying in place. Nurse reports concerns about soilage of sacral decubitus. Also, there is concern about the possibility of a perirectal abscess. WBC count up trending, 9.5>13.8. Currently, on vancomycin for MRSA endocarditis. Review of systems relevant to events:: Neurologic: Altered mental status Respiratory: Acute hypoxemic respiratory failure Cardiovascular: Mitral valve vegetation, endocarditis Renal: End-stage renal disease on hemodialysis Hematologic: Anemia Reason for ICU Addmission:: Still intubated and not awake enough to protect airway. - Medications: Medications reviewed and adjusted accordingly: Yes Physical Exam Vital Signs: Temp Pulse Resp BP Pulse Ox 99.9 F 94 21 H 86/55 L 79 L 11/08/19 10:00 11/08/19 07:00 11/08/19 12:32 11/08/19 12:32 11/08/19 12:00 Intake & Output 11/07/19 11/08/19 11/09/19 06:59 06:59 06:59 Intake Total 9632 1423 936 Output Total 3045 30 1870 Balance -893 1393 -934 Weight 72.1 kg 74 kg Weight/Height Weight 74 kg Height 1.63 m General appearance: PRESENT: no acute distress, well-developed, well-nourished Respiratory exam: PRESENT: rales, rhonchi. ABSENT: wheezes Neurological exam: PRESENT: altered, CN II-XII grossly intact, motor sensory deficit. ABSENT: reflexes normal - Left Babinski Skin exam: PRESENT: dry, warm, other - Large unstageable sacral decubitus with satellite lesion in the gluteal fold. Also, perirectal ulcerative lesion.. ABSENT: cyanosis, rash Tubes/Lines: PRESENT: Endotracheal Tube, Central Line - Left subclavian, Dialysis catheter - Right IJ, Other - Orogastric Laboratory/Radiographs Laboratory Results: 11/08/19 03:50 11/08/19 03:50 11/07/19 11/07/19 11/08/19 08:17 21:35 03:50 WBC 9.5 RBC 3.22 L Hgb 9.8 L D Hct 28.8 L MCV 90 MCH 30.4 MCHC 34.0 RDW 15.9 H Plt Count 92 L Seg Neutrophils % Carbonic Acid HCO3/H2CO3 Ratio ABG pH ABG pCO2 ABG pO2 ABG HCO3 ABG O2 Saturation ABG Base Excess FiO2 Sodium 137.9 Potassium 5.3 H D Chloride 104 Carbon Dioxide 21 L Anion Gap 13 BUN 45 H Creatinine 2.59 H Est GFR ( Amer) 23 L Glucose 134 H Calcium 8.4 Phosphorus 2.5 Magnesium 2.3 Blood Type O POSITIVE Antibody Screen NEGATIVE 11/08/19 11/08/19 03:50 04:08 WBC 13.8 H RBC 3.57 L Hgb 10.8 L Hct 32.1 L MCV 90 MCH 30.2 MCHC 33.5 RDW 16.0 H Plt Count 102 L Seg Neutrophils % Not Reportable Carbonic Acid 1.19 HCO3/H2CO3 Ratio 17:1 ABG pH 7.35 ABG pCO2 39.4 ABG pO2 69.5 L ABG HCO3 21.1 ABG O2 Saturation 93.2 L ABG Base Excess -4.2 FiO2 40% Sodium Potassium Chloride Carbon Dioxide Anion Gap BUN Creatinine Est GFR ( Amer) Glucose Calcium Phosphorus Magnesium Blood Type Antibody Screen 11/03/19 11:14 Blood Blood Culture - Final NO GROWTH IN 5 DAYS 11/03/19 11:00 Blood Blood Culture - Final NO GROWTH IN 5 DAYS 10/24/19 13:45 Bronchial Washings Legionella Culture - Final Impressions: Chest CT 10/20/19 12:41 IMPRESSION: 1. Mild lower lobe consolidation, likely atelectasis. Addition patchy bilateral areas of ground-glass attenuation which are nonspecific and may represent infectious/inflammatory process, including viral pneumonias. 2. Interlobular septal thickening suggestive of mild interstitial edema. Small pericardial effusion. Head CT 10/30/19 00:00 IMPRESSION: NORMAL BRAIN CT WITHOUT CONTRAST. EVIDENCE OF ACUTE STROKE: NO. Chest X-Ray 11/08/19 09:04 IMPRESSION: Cannot exclude left upper lobe pneumonia. Cannot exclude mild pulmonary edema. Endotracheal tube as described. All labs, radiographs, diagnostic studies and EKGs were personally reviewed: Yes In addition, reports of radiographic and diagnostic studies were read: Yes Assessment and Plan - Diagnosis (1) Acute hypoxemic respiratory failure Is this a current diagnosis for this admission?: Yes Plan: Although her respiratory status has improved in terms of gas exchange, her menta l status is hindering efforts to liberate from mechanical ventilatory support. Head CT (10/29) showed no acute intracranial process. Awaiting decisions from family regarding directions of care. (2) Decubitus ulcers Qualifiers: Pressure injury location: sacral region Pressure injury stage: unstageable Qualified Code(s): L89.150 - Pressure ulcer of sacral region, unstageable Is this a current diagnosis for this admission?: Yes Plan: Present on admission. Wound culture. Start cefepime/Flagyl. We will need wound care consult. (3) Endocarditis of mitral valve Is this a current diagnosis for this admission?: Yes (4) MRSA bacteremia Is this a current diagnosis for this admission?: Yes Plan: Continue vancomycin. (5) ESRD on hemodialysis Is this a current diagnosis for this admission?: Yes Plan: Dialysis per nephrology. Right IJ temporary hemodialysis catheter placed 10/25/2019. (6) Hypocalcemia Is this a current diagnosis for this admission?: Yes (7) Thrombocytopenia Is this a current diagnosis for this admission?: Yes (8) Hypomagnesemia Is this a current diagnosis for this admission?: Yes (9) Normocytic anemia Is this a current diagnosis for this admission?: Yes Critical Time Critical Time (minutes): 60 Level of Care: ICU -: 1. The care of a critical patient is a dynamic process. This note is a account maintenance representative synopsis but static in nature. The timeframe for treatments given in order is not necessarily the actual time these treatments may have been done. 2. This patient requires critical care secondary to ongoing requirements for therapy not offered or safe outside the critical care environment. Transfer to a lower level of care will result in altered life or limb morbidity and m ortality. 3. Multidisciplinary rounds completed. 4. ABCDE bundle addressed.
[2019-11-08] MEDS: CEFEPIME 1 GM/D5W RTU 1 GM/50 ML RTUPB IV SCH (22:07)
[2019-11-09] MEDS: INSULIN REG, HUMAN 100 UNIT/ML 3 ML VIAL (PYX) SUBCUT SCH ×4 (01:07→18:37)
[2019-11-09 05:11] LABS: HEMATOCRIT 29.2 % (36.0-47.0); HEMOGLOBIN 9.9 g/dL (12.0-15.5); MEAN CORPUSCULAR HEMOGLOBIN 30.5 pg (27.0-33.4); MEAN CORPUSCULAR HGB CONC 33.8 g/dL (32.0-36.0); MEAN CORPUSCULAR VOLUME 90 fl (80-97); RED BLOOD COUNT 3.24 10^6/uL (3.72-5.28); RED CELL DISTRIBUTION WIDTH 15.9 % (11.5-14.0); WHITE BLOOD COUNT 10.1 10^3/uL (4.0-10.5)
[2019-11-09 05:24] LABS: ANION GAP 11 (5-19); BLOOD UREA NITROGEN 38 mg/dL (7-20); CALCIUM 7.8 mg/dL (8.4-10.2); CARBON DIOXIDE 24 mmol/L (22-30); CHLORIDE 102 mmol/L (98-107); GLUCOSE 117 mg/dL (75-110); PHOSPHORUS 1.9 mg/dL (2.5-4.5); POTASSIUM 4.3 mmol/L (3.6-5.0)
[2019-11-09 05:40] LABS: PLATELET COUNT 88 10^3/uL (150-450)
[2019-11-09 05:45] LABS: ABSOLUTE LYMPHOCYTES# (MANUAL) 1.6 10^3/uL (0.5-4.7); ABSOLUTE MONOCYTES # (MANUAL) 0.3 10^3/uL (0.1-1.4); BAND NEUTROPHILS % (MANUAL) 7 % (3-5); BASOPHILS % (MANUAL) 0 % (0-2); EOSINOPHILS % (MANUAL) 1 % (0-6); LYMPHOCYTES % (MANUAL) 16 % (13-45); MONOCYTES % (MANUAL) 3 % (3-13); PROMYELOCYTES % (MANUAL) 1 % (0); SEGMENTED NEUTROPHILS % (MAN) 72 % (42-78); TOTAL CELLS COUNTED 100
[2019-11-09 05:46] LABS: ANISOCYTOSIS SLIGHT; PLATELET COMMENT DECREASED; TOXIC GRANULATION 1+; TOXIC VACUOLATION PRESENT
[2019-11-09] MEDS: DIPHENOXYLATE HCL/ATROP SULF 2.5-0.025 MG TABLET PO PRN ×2 (06:21→14:17)
[2019-11-09] MEDS: HEPARIN SOD (PORCINE) 5,000 UNIT/ML 1 ML VIAL SUBCUT SCH ×3 (06:21→21:06)
[2019-11-09] MEDS: LEVOTHYROXINE SODIUM 0.15 MG TABLET PO SCH (06:21)
[2019-11-09] MEDS: METRONIDAZOLE 500 MG/NS RTU 500 MG/100 ML RTUPB IV SCH ×3 (06:21→21:06)
[2019-11-09] MEDS: PANTOPRAZOLE SODIUM 40 MG PACKET.DR NG SCH (06:21)
[2019-11-09] MEDS ORDERED: MAGNESIUM SULFATE/D5W 1 GM/100 ML RTUPB IV ONE (07:00)
[2019-11-09] MEDS ORDERED: SODIUM PHOS,M-BASIC-D-BASIC 15 MMOL in NORMAL SALINE 250 ML IV ONE ×2 (07:00→09:00)
[2019-11-09] MEDS: CEFEPIME 1 GM/D5W RTU 1 GM/50 ML RTUPB IV SCH ×2 (10:01→21:06)
[2019-11-09] MEDS: POTASSIUM CHLORIDE 20 MEQ PACKET NG SCH ×2 (10:01→21:06)
[2019-11-09] MEDS: ASCORBIC ACID 500 MG TABLET NG SCH (10:01)
[2019-11-09] MEDS: SODIUM BICARBONATE 650 MG TABLET NG SCH ×2 (10:01→21:06)
[2019-11-09] MEDS: CALCITRIOL 1 MCG/ML ORAL SOLN 15 ML NG SCH (10:02)
[2019-11-09] MEDS: AMINO AC/PROTEIN HYDR/WHEY PRO 11 GM/45 ML PKT NG SCH ×2 (10:02→18:43)
[2019-11-09 11:19] LABS: ARTERIAL BLOOD BASE EXCESS -3.1 mmol/L; ARTERIAL BLOOD FIO2 40%; ARTERIAL BLOOD H2CO3 1.11 mmol/L (1.05-1.35); ARTERIAL BLOOD HCO3 21.5 mmol/L (20-24); ARTERIAL BLOOD O2 SATURATION 91.1 % (94-98); ARTERIAL BLOOD PH 7.38 (7.35-7.45); ARTERIAL BLOOD PO2 60.8 mmHg (80-100); ARTERIAL BLOOD TOTAL CO2 22.7 mmol/L (21-25)
--- NOTE | 2019-11-09 17:01 | PDOC CRITICAL CARE PROG REPORT ---
General Date:: 11/09/19 ICU Day:: 20 Ventilator Day:: 20 Hospital Day:: 20 Resuscitation Status: Do Not Resuscitate Events in the past 12 to 24 Hours:: This 64-year-old female presented to the emergency department on 10/21/2019 with complaints of fever and shortness of breath. He was initially admitted by the hospitalist service but then was transferred to the ICU after becoming obtunded and demonstrating agonal breathing. She was admitted with a working diagnosis of septic shock. She was intubated due to altered mental status. 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 11/05: Remains intubated. Off sedation. Unarousable. On hemodialysis this morning. 11/06: Remains intubated. Off sedation. Opens eyes spontaneously. Does not follow commands. Blood cultures show no growth to date (x72 hours). This is the first set of cultures that have not immediately been positive for MRSA. On vancomycin. Had a bout of hypotension overnight, believed to be secondary to beta-aston administration. This has resolved. Hemoglobin this morning 6.6. Needs a 1.5. 11/07: Continues to have loose stools. Fecal management system is having difficulty staying in place. Nurse reports concerns about soilage of sacral decubitus. Also, there is concern about the possibility of a perirectal abscess. WBC count up trending, 9.5>13.8. Currently, on vancomycin for MRSA endocarditis. 11/08: No significant interval change. Spoke with the this afternoon. He understands the severity of the patient's illness. He also feels strongly that the patient would would not want to continue with further heroic measures. He has decided to transition to comfort care but is asking for time to call other family members to find out who wishes to be present at the time of withdrawal of care. Review of systems relevant to events:: Neurologic: Altered mental status Respiratory: Acute hypoxemic respiratory failure Cardiovascular: Mitral valve vegetation, endocarditis Renal: End-stage renal disease on hemodialysis Hematologic: Anemia Reason for ICU Addmission:: Still intubated and not awake enough to protect airway. - Medications: Medications reviewed and adjusted accordingly: Yes Physical Exam Vital Signs: Temp Pulse Resp BP Pulse Ox 99.0 F 91 22 H 108/59 L 100 11/09/19 16:00 11/09/19 16:00 11/09/19 16:00 11/09/19 16:00 11/09/19 16:00 Intake & Output 11/08/19 11/09/19 11/10/19 06:59 06:59 06:59 Intake Total 1423 2170 250 Output Total 30 1973 5 Balance 1393 197 245 Weight 74 kg 72.1 kg Weight/Height Weight 72.1 kg Height 1.63 m General appearance: PRESENT: no acute distress, well-developed, well-nourished Head exam: PRESENT: atraumatic, normocephalic Mouth exam: PRESENT: moist, tongue midline Neck exam: ABSENT: carotid bruit, JVD, lymphadenopathy, thyromegaly Respiratory exam: PRESENT: rales, rhonchi. ABSENT: wheezes Cardiovascular exam: PRESENT: RRR. ABSENT: diastolic murmur, rubs, systolic murmur GI/Abdominal exam: PRESENT: normal bowel sounds, soft. ABSENT: distended, guarding, mass, organolmegaly, rebound, tenderness Gentrourinary exam: PRESENT: indwelling catheter Extremities exam: PRESENT: full ROM, pedal edema, +2 edema. ABSENT: calf tenderness, clubbing Neurological exam: PRESENT: awake, CN II-XII grossly intact, motor sensory deficit Psychiatric exam: ABSENT: agitated, anxious Skin exam: PRESENT: other - Edematous Tubes/Lines: PRESENT: Endotracheal Tube, Central Line, Dialysis catheter Laboratory/Radiographs Laboratory Results: 11/09/19 04:40 11/09/19 04:40 11/09/19 11/09/19 11/09/19 04:40 04:40 11:10 WBC 10.1 RBC 3.24 L Hgb 9.9 L Hct 29.2 L MCV 90 MCH 30.5 MCHC 33.8 RDW 15.9 H Plt Count 88 L Seg Neutrophils % Not Reportable Carbonic Acid 1.11 HCO3/H2CO3 Ratio 19:1 ABG pH 7.38 ABG pCO2 37.0 ABG pO2 60.8 L ABG HCO3 21.5 ABG O2 Saturation 91.1 L ABG Base Excess -3.1 FiO2 40% Sodium 136.7 L Potassium 4.3 Chloride 102 Carbon Dioxide 24 Anion Gap 11 BUN 38 H Creatinine 1.95 H Est GFR ( Amer) 31 L Glucose 117 H Calcium 7.8 L Phosphorus 1.9 L Magnesium 1.9 11/08/19 09:00 Rectum - Rectal Abscess Gram Stain - Final 10/24/19 13:45 Bronchial Washings Fungal Smear - Final 10/24/19 13:45 Bronchial Washings Fungal Smear - Final Impressions: Chest CT 10/20/19 12:41 IMPRESSION: 1. Mild lower lobe consolidation, likely atelectasis. Addition patchy bilateral areas of ground-glass attenuation which are nonspecific and may represent infectious/inflammatory process, including viral pneumonias. 2. Interlobular septal thickening suggestive of mild interstitial edema. Small pericardial effusion. Head CT 10/30/19 00:00 IMPRESSION: NORMAL BRAIN CT WITHOUT CONTRAST. EVIDENCE OF ACUTE STROKE: NO. Chest X-Ray 11/08/19 09:04 IMPRESSION: Cannot exclude left upper lobe pneumonia. Cannot exclude mild pulmonary edema. Endotracheal tube as described. All labs, radiographs, diagnostic studies and EKGs were personally reviewed: Yes In addition, reports of radiographic and diagnostic studies were read: Yes Assessment and Plan - Diagnosis (1) Acute hypoxemic respiratory failure Is this a current diagnosis for this admission?: Yes Plan: Although her respiratory status has improved in terms of gas exchange, her mental status is hindering efforts to liberate from mechanical ventilatory support. Head CT (10/29) showed no acute intracranial process. After conversation with the about the patient's wishes, we have agreed that there will be no escalation of care. We will not transition to comfort measures only at this time, pending phone calls to the rest of the family. She remains DNR. (2) Decubitus ulcers Qualifiers: Pressure injury location: sacral region Pressure injury stage: unstageable Qualified Code(s): L89.150 - Pressure ulcer of sacral region, unstageable Is this a current diagnosis for this admission?: Yes Plan: Present on admission. Wound culture. Continue cefepime/Flagyl. The patient's has declined surgery consultation (3) Endocarditis of mitral valve Is this a current diagnosis for this admission?: Yes (4) MRSA bacteremia Is this a current diagnosis for this admission?: Yes Plan: Continue vancomycin. (5) ESRD on hemodialysis Is this a current diagnosis for this admission?: Yes Plan: Dialysis per nephrology. Right IJ temporary hemodialysis catheter placed 10/25/2019. We will still plan on hemodialysis for tomorrow; however, I suspect tomorrow session will be her last dialysis session. (6) Hypocalcemia Is this a current diagnosis for this admission?: Yes (7) Thrombocytopenia Is this a current diagnosis for this admission?: Yes (8) Hypomagnesemia Is this a current diagnosis for this admission?: Yes (9) Normocytic anemia Is this a current diagnosis for this admission?: Yes Critical Time Critical Time (minutes): 90 Level of Care: ICU -: 1. The care of a critical patient is a dynamic process. This note is a it sales representative synopsis but static in nature. The timeframe for treatments given in order is not necessarily the actual time these treatments may have been done. 2. This patient requires critical care secondary to ongoing requirements for therapy not offered or safe outside the critical care environment. Transfer to a lower level of care will result in altered life or limb morbidity and mortality. 3. Multidisciplinary rounds completed. 4. ABCDE bundle addressed.
[2019-11-09] MEDS: ALBUMIN HUMAN 25 GM/100 ML RTUINJ IV SCH (18:42)
[2019-11-09] MEDS ORDERED: MORPHINE SULFATE 10 MG/ML INJ ONE (20:01)
[2019-11-09] MEDS ORDERED: MORPHINE SULFATE 10 MG/ML INJ IV ONE (20:02)
[2019-11-09] MEDS: MORPHINE SULFATE 10 MG/ML INJ IV PRN (22:12)
[2019-11-10] MEDS: INSULIN REG, HUMAN 100 UNIT/ML 3 ML VIAL (PYX) SUBCUT SCH ×2 (00:49→06:19)
[2019-11-10] MEDS: ALBUMIN HUMAN 25 GM/100 ML RTUINJ IV SCH ×2 (00:49→06:18)
[2019-11-10] MEDS: MORPHINE SULFATE 10 MG/ML INJ IV PRN ×2 (02:25→06:19)
[2019-11-10] MEDS ORDERED: EPOETIN ALFA-EPBX 10,000 UNIT in SYRINGE, DISPOSABLE, 1 EACH IV PRN (05:00)
[2019-11-10] MEDS ORDERED: HEPARIN SOD (PORCINE) 1,000 UNIT/ML 10 ML VIAL IV PRN (05:00)
[2019-11-10] MEDS: HEPARIN SOD (PORCINE) 5,000 UNIT/ML 1 ML VIAL SUBCUT SCH (06:18)
[2019-11-10] MEDS: METRONIDAZOLE 500 MG/NS RTU 500 MG/100 ML RTUPB IV SCH (06:18)
[2019-11-10] MEDS: PANTOPRAZOLE SODIUM 40 MG PACKET.DR NG SCH (06:19)
[2019-11-10] MEDS: LEVOTHYROXINE SODIUM 0.15 MG TABLET PO SCH (06:19)
[2019-11-10 10:22] VITALS: BP 65/32
[2019-11-10] MEDS: AMINO AC/PROTEIN HYDR/WHEY PRO 11 GM/45 ML PKT NG SCH (10:44)
[2019-11-10] MEDS: CEFEPIME 1 GM/D5W RTU 1 GM/50 ML RTUPB IV SCH (10:44)
[2019-11-10] MEDS: ASCORBIC ACID 500 MG TABLET NG SCH (10:44)
[2019-11-10] MEDS: CALCITRIOL 1 MCG/ML ORAL SOLN 15 ML NG SCH (10:44)
--- NOTE | 2019-11-10 11:30 | Death Summary ---
Summary Date : 11/10/19 Time of :: 10:04 Resuscitation Status: Comfort Measures Only - Final Diagnosis (1) Acute hypoxemic respiratory failure Is this a current diagnosis for this admission?: Yes (2) Decubitus ulcers Is this a current diagnosis for this admission?: Yes (3) Endocarditis of mitral valve Is this a current diagnosis for this admission?: Yes (4) MRSA bacteremia Is this a current diagnosis for this admission?: Yes (5) ESRD on hemodialysis Is this a current diagnosis for this admission?: Yes (6) Hypocalcemia Is this a current diagnosis for this admission?: Yes (7) Thrombocytopenia Is this a current diagnosis for this admission?: Yes (8) Hypomagnesemia Is this a current diagnosis for this admission?: Yes (9) Normocytic anemia Is this a current diagnosis for this admission?: Yes (10) Comfort measures only status Is this a current diagnosis for this admission?: Yes Hospital Course:: This 64-year-old female presented to [facility] emergency department on 10/20/2019 with complaints of fever and shortness of breath. She was initially admitted by the hospitalist service but then was transferred to the ICU after becoming obtunded and demonstrating agonal breathing. She was admitted with a working diagnosis of septic shock. She was intubated due to altered mental status. During her hospitalization, she was diagnosed with MRSA endocarditis with a mitral valve vegetation, suspected to be due to an infected hemodialysis catheter. She was initiated on appropriate antibiotic therapy upon hospitalization; however, she is still struggled with persistent MRSA bacteremia. Blood cultures on 11/03/2019 were the first blood cultures that failed to isolate MRSA. She presented with a large sacral decubitus wound and developed additional gluteal and perirectal ulcerative les ions. While she did make hemodynamic improvement during her hospitalization, she failed to make any meaningful clinical improvement. Of note, she continued to have persistent alteration in mental status, compatible with a toxic encephalopathy. Her prolonged endotracheal intubation and significant decubiti prompted conversation about need for surgical interventions (tracheostomy, percutaneous gastrostomy, wound debridement). The patient's felt that such drastic measures were inconsistent with the patient's wishes, particularly when considering that her highest priority would be to maintain high quality of life and independence. The patient's changed her CODE STATUS from full code to DO NOT RESUSCITATE. With continued failure to improve, the patient's changed her to comfort measures only on 11/09/2019. She was compassionately extubated. Patient's was at the bedside throughout the duration of comfort care. The patient was pronounced at 1004 on 11/10/2019. On exam, no response to verbal, tactile or noxious stimuli. Pupils are fixed and dilated. No lung sounds. No spontaneous respiratory effort. No heart sounds. Asystole on the monitor. No peripheral pulses. at the bedside. Case presented to medical accounting clerk (Salina Suárez). elevator examiner and adjuster declined examination.
== END 2019-11-10 13:15 | DRG 314 ==
LOC: ER 08:24 → EH 10-21 03:33 → ICU 10-21 06:44
PROVIDERS: ADMIT Anesthesiology; ATTEND Anesthesiology
PROC: 5A1955Z Respiratory Ventilation, Greater than 96 Consecutive Hours (ICD-10-PCS; principal; 2019-10-21)
PROC: 02HV33Z Insertion of Infusion Device into Superior Vena Cava, Percutaneous Approach (ICD-10-PCS; 2019-10-21)
PROC: 05H633Z Insertion of Infusion Device into Left Subclavian Vein, Percutaneous Approach (ICD-10-PCS; 2019-10-21)
PROC: 0BH17EZ Insertion of Endotracheal Airway into Trachea, Via Natural or Artificial Opening (ICD-10-PCS; 2019-10-21)
PROC: 0B9J8ZX Drainage of Left Lower Lung Lobe, Via Natural or Artificial Opening Endoscopic, Diagnostic (ICD-10-PCS; 2019-10-21)
PROC: 0JPT3XZ Removal of Tunneled Vascular Access Device from Trunk Subcutaneous Tissue and Fascia, Percutaneous Approach (ICD-10-PCS; 2019-10-23)
PROC: 02PY33Z Removal of Infusion Device from Great Vessel, Percutaneous Approach (ICD-10-PCS; 2019-10-23)
PROC: 5A1D70Z Performance of Urinary Filtration, Intermittent, Less than 6 Hours Per Day (ICD-10-PCS; 2019-10-23)
PROC: B24BZZZ Ultrasonography of Heart with Aorta (ICD-10-PCS; 2019-10-25)
PROC: 30233N1 Transfusion of Nonautologous Red Blood Cells into Peripheral Vein, Percutaneous Approach (ICD-10-PCS; 2019-10-26)
PROC: B24BZZ4 Ultrasonography of Heart with Aorta, Transesophageal (ICD-10-PCS; 2019-10-31)
DX: T80.211A Bloodstream infection due to central venous catheter, initial encounter (principal); A41.9 Sepsis, unspecified organism; R65.21 Severe sepsis with septic shock; J18.9 Pneumonia, unspecified organism; N18.6 End stage renal disease; J96.02 Acute respiratory failure with hypercapnia; J96.01 Acute respiratory failure with hypoxia; I33.0 Acute and subacute infective endocarditis; J44.0 Chronic obstructive pulmonary disease with (acute) lower respiratory infection; I48.92 Unspecified atrial flutter; I69.354 Hemiplegia and hemiparesis following cerebral infarction affecting left non-dominant side; I13.2 Hypertensive heart and chronic kidney disease with heart failure and with stage 5 chronic kidney disease, or end stage renal disease; E44.0 Moderate protein-calorie malnutrition; E87.6 Hypokalemia; J44.9 Chronic obstructive pulmonary disease, unspecified; E11.21 Type 2 diabetes mellitus with diabetic nephropathy; F17.210 Nicotine dependence, cigarettes, uncomplicated; K21.9 Gastro-esophageal reflux disease without esophagitis; E11.22 Type 2 diabetes mellitus with diabetic chronic kidney disease; I50.9 Heart failure, unspecified; M19.90 Unspecified osteoarthritis, unspecified site; F31.9 Bipolar disorder, unspecified; E89.0 Postprocedural hypothyroidism; Z20.828 Contact with and (suspected) exposure to other viral communicable diseases; I25.10 Atherosclerotic heart disease of native coronary artery without angina pectoris; E83.51 Hypocalcemia; B95.62 Methicillin resistant Staphylococcus aureus infection as the cause of diseases classified elsewhere; D69.59 Other secondary thrombocytopenia; Z66 Do not resuscitate; Z51.5 Encounter for palliative care; D64.9 Anemia, unspecified; E83.42 Hypomagnesemia; L89.150 Pressure ulcer of sacral region, unstageable; Z86.711 Personal history of pulmonary embolism; Z90.49 Acquired absence of other specified parts of digestive tract; Z95.5 Presence of coronary angioplasty implant and graft; Z90.12 Acquired absence of left breast and nipple; Z79.4 Long term (current) use of insulin; Z79.899 Other long term (current) drug therapy; Z99.2 Dependence on renal dialysis; Z85.3 Personal history of malignant neoplasm of breast; Z88.5 Allergy status to narcotic agent; Z91.040 Latex allergy status; Z88.8 Allergy status to other drugs, medicaments and biological substances; Z79.890 Hormone replacement therapy; Z91.048 Other nonmedicinal substance allergy status; Z78.1 Physical restraint status
CPT/HCPCS: 31500; 31622; 36415; 36430; 36556; 36600; 70450; 71045; 71250; 80048; 80053; 80202; 81001; 82040; 82330; 82533; 82803; 82947; 82962; 83520; 83605; 83735; 84100; 84134; 84478; 85025; 85027; 85610; 86850; 86900; 86901; 86920; 87040; 87070; 87077; 87086; 87101; 87150; 87186; 87205; 87324; 87449; 87635; 93005; 93010; 93306; 93312; 93325; 94002; 94003; 94640; 96361; 96365; 96366; 96368; 96375; 99285; 99291; 99292; J0610; C9113; C9803; J0171; J0282; J0692; J1644; J1720; J1815; J1940; J2020; J2250; J2270; J2704; J2997; J3010; J3370; J3475; J3480; J3490; J7030; J7050; J7060; J7120; J8540; P9016; P9041; P9047; Q5105